=== PATIENT | female | born 1940 | race Caucasian/White ===

== ENCOUNTER 2016-04-29 10:17 | Outpatient (RCR) | payer MEDICARE ==
[~2016-04-29 10:17] MED LIST: ACET500C4 PO; ASCO500T20 PO; ASP325TEC PO; ASP81TEC PO; ASPI-892; ATEN25TA; ATEN25TA PO; ATOR40TA PO; CA/D1TAB3 PO; CALC-80 PO; CITA10TA PO; CITA20TA4 PO; DNPZ10T PO; DONE5TAB30 PO; FISH OIL 1,2001 EAC1 PO; GLUC-96 PO; HYDR1TAB PO; LOSA1TAB23 PO; MULT-608 PO; NFD60TCR PO; NIA500ERT; NIAC1000 PO; NIFE60TA74; OLME1TAB22; OMEG-9 PO; OMEG1200 PO; OMEG1CAP51; OMEG1CAP74 PO; OMEP-10; OMEP40CA36 PO; POTA99TA15 PO; POTA99TA4 PO; POTASSIUM 99 MG PO; SIMV40TA2
--- OUTSIDE RECORDS SUMMARY | 2016-04-29 10:20 | XMS REPORT | Continuity of Care Document ---
Author Author [facility] Organization [facility] Address Unknown Phone Unavailable Care Team Providers Care Marine Mechanic Name Role Phone CLIVE NEVAREZ MD PCP Insurance Providers Payer Name Policy Number Subscriber Name Relationship Wps [employer] [id number] Paola Amaral 18 Self / Same As Patient [facility] [id number] Paola Amaral 18 Self / Same As Patient Advance Directives Directive Response Recorded Date/Time Advance Directives No 01/16/14 6:48am Health Care Power of Morning Babysitter No 01/16/14 6:48am Organ Donor No 01/16/14 6:48am Problems No problem information available. Medications Current Home Medications Medication Dose Units Route Directions Days/Qty Instructions Start Date Omeprazole 40 Mg 40 Mg Oral Daily 08/26/11 Losartan/Hydrochlorothiazide 1 Each 1 Tab Oral Daily 100-25 mg tablet 08/26/11 Atenolol 25 Mg 25 Mg Oral Daily 08/26/11 Atorvastatin Calcium 40 Mg 40 Mg Oral Bedtime 08/26/11 Multivitamins 1 Tab 1 Tab Oral Daily 08/26/11 Calcium Carbonate/Vitamin D3 1 Each 600 Mg Oral Daily 08/26/11 Ascorbic Acid 500 Mg 500 Mg Oral Daily 08/26/11 Nifedipine 60 Mg 60 Mg Oral Daily 09/22/12 Aspirin 325 Mg 325 Mg Oral Bedtime 09/22/12 Donepezil Hcl 10 Mg 10 Mg Oral Bedtime 01/12/14 Ca/D3/Mag#11/Zinc/Spike Machine Heater/Bill/Bor 1 Each 2 Tab Oral Daily 01/12/14 Glucosa Gary 2KCL/Chondroitin Gary 1 Each 2 Tab Oral Daily 01/12/14 [place]-3/Dha/Epa/Fish Oil 1,200 Mg 2,400 Mg Oral Twice A Day TAKES 2 ( 1200MG) CAPSULE 01/16/14 Potassium Gluconate 99 Mg 198 Mg Oral Twice A Day TAKES 2 (99MG) TABLETS 01/16/14 Citalopram Hydrobromide 20 Mg 20 Mg Oral Daily 01/16/14 Acetaminophen 500 Mg 500 Mg Oral Every 8HRS as needed for Pain 01/16 Past Home Medications Medication Directions Ordered Status Olmesartn/Hydrochlorothiazide 1 Tab Tablet, 07/18/09 Discontinued Simvastatin 40 Mg Tablet, 07/18/09 Discontinued Atenolol 25 Mg Tablet, 07/18/09 Discontinued Omeprazole 20 Mg Capsule., 07/18/09 Discontinued Nifedipine 60 Mg Tablet., 07/18/09 Discontinued Aspirin 81 Mg Tablet., 07/18/09 Discontinued [place]-3 Fatty Acids/Fish Oil 1 Each Capsule, 07/18/09 Discontinued Niacin 500 Mg Tablet., 07/18/09 Discontinued Citalopram Hydrobromide 10 Mg Tablet, 10 Mg Oral Daily 08/26/11 Discontinued Nifedipine 60 Mg Tab, 1 Each Oral Daily 08/26/11 Discontinued Aspirin 81 Mg Tabec, 81 Mg Oral Daily 08/26/11 Discontinued Niacin 1,000 Mg Tablet., 1000 Mg Oral Daily 08/26/11 Discontinued [place]-3/Dha/Epa/Fish Oil 1,000 Mg Capsule, 2000 Mg Oral Noon And Hs 08/26/11 Discontinued [place]-3/Dha/Epa/Fish Oil 1 Each Capsule., 1400 Mg Oral Twice A Day Discontinued Potassium Gluconate 99 Mg Tablet, 198 Mg Oral Daily 08/26/11 Discontinued Acetaminophen/Hydrocodone Bitart 1 Each Tablet, 1 - 2 Each Oral Q4-6HRS as needed 09/03/11 Discontinued [place]-3 Fatty Acids/Fish Oil 1 Each Capsule, 1200 Mg Oral Three Times A Day 09/22/12 Discontinued Donepezil Hcl 5 Mg Tablet, 5 Mg Oral Daily 09/22/12 Discontinued [place]-3/Dha/Epa/Fish Oil 1 Each Capsule., 1 Each Oral Three Times A Day 08/22 Discontinued [Braden Potassium 99MG] , 198 Mg Oral Twice A Day 01/12/14 Discontinued Social History Social History Problem Response Recorded Date/Time Alcohol Use Regular Use 01/16/2014 6:48am Recreational Drug Use Y SMOKES APPROX 2-4 CIGARETTES PER DAY; 01/16/2014 6: 48am Recent Foreign Travel No 01/16/2014 6:48am Recent Infectious Disease Exposure No 01/16/2014 6:48am Hospitalization with Isolation Denies 01/17/2014 4:06pm Sexually Transmitted Disease No 01/16/2014 6:48am Hospital Discharge Instructions No hospital discharge instructions. Plan of Care Prescriptions See Medication Section Functional Status No functional status results. Allergies, Adverse Reactions, Alerts No known allergies. Immunizations Name Given Type Date of Pneumonia Vaccine 10/14/12 Historical Hepatitis A No Historical Hepatitis B No Historical Tetanus Booster (TDap) More than 5yrs Historical Vital Signs No known vital signs results. Results No known relevant diagnostic tests, laboratory data and/or discharge summary. Procedures No known history of procedures. Encounters Encounter Location Arrival/Admit Date Discharge/Depart Date Attending Provider Discharged Recurring [facility] 10/09/15 10:00am 11:59pm MINNIE SELF DO
[2016-04-29 10:32] LABS: BASOPHILS # (AUTO) 0.1 10^3/uL (0.0-0.1); BASOPHILS % (AUTO) 0 % (0-10); EOSINOPHILS # (AUTO) 0.4 10^3/uL (0.0-0.3); EOSINOPHILS % (AUTO) 2 % (0-10); LYMPHOCYTES # (AUTO) 5.2 X 10^3 (1.0-4.0); LYMPHOCYTES % (AUTO) 30 % (12-44); MEAN CORPUSCULAR HEMOGLOBIN 28 PG (25-34); MEAN CORPUSCULAR HGB CONC 33 G/DL (32-36); MEAN CORPUSCULAR VOLUME 87 FL (80-99); MEAN PLATELET VOLUME 9.7 FL (7.4-10.4); MONOCYTES # (AUTO) 1.7 X 10^3 (0.0-1.0); MONOCYTES % (AUTO) 10 % (0-12); NEUTROPHILS # (AUTO) 10.2 X 10^3 (1.8-7.8); NEUTROPHILS % (AUTO) 58 % (42-75); PLATELET COUNT 332 10^3/uL (130-400); RED BLOOD COUNT 4.53 10^6/uL (4.35-5.85); RED CELL DISTRIBUTION WIDTH 14.2 % (10.0-14.5); WHITE BLOOD COUNT 17.6 10^3/uL (4.3-11.0)
[2016-04-29 11:30] LABS: ALBUMIN 4.4 G/DL (3.2-4.5); BILIRUBIN,TOTAL 1.1 MG/DL (0.1-1.0); CALCIUM 9.3 MG/DL (8.5-10.1); CREATININE SERUM 1.23 MG/DL (0.60-1.30); MAGNESIUM 1.7 MG/DL (1.8-2.4); POTASSIUM 4.2 MMOL/L (3.6-5.0); TOTAL PROTEIN 7.2 G/DL (6.4-8.2)
[2016-05-03] MEDS ORDERED: OMG1KC PO ×2 (17:36)
[2016-05-03] MEDS ORDERED: MAGN400T6 PO (17:36)
[2016-05-03] MEDS ORDERED: CALC-6 PO (17:36)
[2016-05-03] MEDS ORDERED: OXYC-197 PO (17:36)
[2016-05-03] MEDS ORDERED: AMLO10TA4 PO (17:36)
[2016-05-05] MEDS ORDERED: RT-ALBUTEROL/IPRATROPIUM 3 ML (DUONEB) VIAL ONE (07:27)
[2016-05-05] MEDS ORDERED: RT-BUDESONIDE NEBS 0.5 MG/2ML (PULMICORT) AMP ONE (07:32)
[2016-05-06] MEDS ORDERED: CEFD300C3 PO (12:14)
== END 2016-07-28 | disposition home or self-care (01) ==
LOC: ONC 10:17
PROVIDERS: ATTEND Internal Medicine Hematology & Oncology
DX: C91.10 Chronic lymphocytic leukemia of B-cell type not having achieved remission (principal); Z85.3 Personal history of malignant neoplasm of breast; Z79.899 Other long term (current) drug therapy
CPT/HCPCS: 36415; 80053; 83615; 83735; 85025; 99213

== ENCOUNTER → 2016-05-26 | Outpatient (CLI) | payer MEDICARE ==
[~2016-05-26] MED LIST changes: +AMLO10TA4 PO; +CALC-6 PO; +CEFD300C3 PO; +MAGN400T6 PO; +OMG1KC PO; +OXYC-197 PO
--- OUTSIDE RECORDS SUMMARY | 2016-05-26 11:06 | XMS REPORT | Continuity of Care Document ---
Author Author [facility] Organization [facility] Address Unknown Phone Unavailable Care Team Providers Care Retail Representative Name Role Phone CLIVE NEVAREZ MD PCP Insurance Providers Payer Name Policy Number Subscriber Name Relationship Wps Medicare [id number] Paola Amaral 18 Self / Same As Patient [facility] [id number] Paola Amaral 18 Self / Same As Patient Advance Directives Directive Response Recorded Date/Time Advance Directives No 01/16/14 6:48am Health Care Power of Cdl Instructor No 01/16/14 6:48am Organ Donor No 01/16/14 [...] 10 Mg 10 Mg Oral Bedtime 01/12/14 Ca/D3/Mag#11/Zinc/Photonics Engineer/Bill/Bor 1 Each 2 Tab Oral Daily 01/12/14 Glucosa Gary 2KCL/Chondroitin Gary 1 Each 2 Tab Oral Daily 01/12/14 [place]-3/Dha/Epa/Fish Oil 1,200 Mg 2,400 Mg Oral Twice [...] Discontinued Aspirin 81 Mg Tablet., 07/18/09 Discontinued [place]-3 Fatty Acids/Fish Oil 1 Each Capsule, 07/18/09 Discontinued Niacin 500 Mg Tablet., 07/18/09 Discontinued Citalopram Hydrobromide 10 Mg Tablet, 10 Mg Oral Daily 08/26/11 Discontinued Nifedipine 60 Mg Tab, 1 Each Oral Daily 08/26/11 Discontinued Aspirin 81 Mg Tabec, 81 Mg Oral Daily 08/26/11 Discontinued Niacin 1,000 Mg Tablet., 1000 Mg Oral Daily 08/26/11 Discontinued [place]-3/Dha/Epa/Fish Oil 1,000 Mg Capsule, 2000 Mg Oral Noon And Hs 08/26/11 Discontinued [place]-3/Dha/Epa/Fish Oil 1 Each Capsule., 1400 Mg Oral Twice A Day Discontinued Potassium Gluconate 99 Mg Tablet, 198 Mg Oral Daily 08/26/11 Discontinued Acetaminophen/Hydrocodone Bitart 1 Each Tablet, 1 - 2 Each Oral Q4-6HRS as needed 09/03/11 Discontinued [place]-3 Fatty Acids/Fish Oil 1 Each Capsule, 1200 Mg Oral Three Times A Day 09/22/12 Discontinued Donepezil Hcl 5 Mg Tablet, 5 Mg Oral Daily 09/22/12 Discontinued [place]-3/Dha/Epa/Fish Oil 1 Each Capsule., 1 Each Oral [...] Discharge/Depart Date Attending Provider Discharged Recurring [facility] 10/09/15 10:00am 11:59pm MINNIE SELF DO
--- NOTE | 2016-05-26 18:45 | Diagnostic Imaging Report ---
Right breast screening mammogram. INDICATION: Screening. No current complaints. Patient has history of breast cancer status post left mastectomy. COMPARISON: 05/24/2015. The current study was also evaluated with a Computer Aided Detection (CAD) system. FINDINGS: The right breast is composed of heterogeneously dense parenchyma which may decrease mammographic sensitivity. There are occasional benign-appearing calcifications seen. Allowing for technique and positional differences, no suspicious change is seen. IMPRESSION: Dense breasts with no definite change. ACR BI-RADS Category 2: Benign findings. Result letter will be mailed to the patient. Note: At least 10% of breast cancer is not imaged by mammography. Dictated by: Dictated on workstation # [id number]
== END ==
LOC: RAD 11:03
PROVIDERS: ATTEND Nurse Practitioner Adult Health
DX: Z12.31 Encounter for screening mammogram for malignant neoplasm of breast (principal); C50.512 Malignant neoplasm of lower-outer quadrant of left female breast

== ENCOUNTER → 2016-08-12 | Outpatient (CLI) | payer MEDICARE ==
[~2016-08-12] MED LIST changes: +CATHETER FLUSH 10 ML SYR IV PRN; +IOHEXOL 350 MG/ML 100 ML (OMNIPAQUE 350) VIAL IV ONE; +NS 100 ML (IVPB) BAG IV ONE
--- NOTE | 2016-08-12 13:28 | Diagnostic Imaging Report ---
PROCEDURE: CT chest with contrast only. TECHNIQUE: Multiple contiguous axial images were obtained through the chest after administration of intravenous contrast. INDICATION: COPD, checking anterior veins prior to left mastectomy. FINDINGS: The previous CT chest exam of 04/29/2015 failed to show any sign of malignancy or of an acute abnormality. On this study, there are mild emphysematous changes involving both lungs. There are also mild fibrotic changes in each lower lobe. These findings are similar to the prior exam. There is no sign of failure, pneumonia, or pleural effusion to suggest an acute abnormality. There is no parenchymal mass identified either. The heart size is within normal limits and stable when compared to the prior study. There is no defect within the pulmonary arteries to indicate a pulmonary embolus. The aorta is not abnormally dilated, and there is no sign of a dissection. There is no mediastinal or hilar adenopathy. The thyroid gland, where visualized, is unremarkable. As noted on the prior exam, the left breast is surgically absent. There are a few lymph nodes in each axilla. These are similar in appearance to the prior study. The sections through the upper abdomen fail to show any sign of an acute abnormality. The bone windows are unremarkable for a fracture or for a destructive lesion. The patient's requisition did note "check anterior veins". There is no vascular abnormality identified. If there is clinical concern regarding a cutaneous vascular abnormality, then ultrasound would be recommended. IMPRESSION: 1. There is no acute cardiopulmonary abnormality identified. There is no parenchymal lung mass visualized either. 2. There are mild chronic pulmonary changes evident. 3. The left breast is surgically absent. 4. There is no vascular abnormality identified. Additional considerations as above. Dictated by: Dictated on workstation # [id number]
== END ==
LOC: RAD 09:10
PROVIDERS: ATTEND Thoracic Surgery (Cardiothoracic Vascular Surgery)
DX: K57.90 Diverticulosis of intestine, part unspecified, without perforation or abscess without bleeding (principal); J44.9 Chronic obstructive pulmonary disease, unspecified
CPT/HCPCS: 71260

== ENCOUNTER → 2016-08-26 | Outpatient (CLI) | payer MEDICARE ==
[~2016-08-26] MED LIST changes: -CATHETER FLUSH 10 ML SYR IV PRN; -IOHEXOL 350 MG/ML 100 ML (OMNIPAQUE 350) VIAL IV ONE; -NS 100 ML (IVPB) BAG IV ONE
[2016-08-26 09:22] LABS: BASOPHILS # (AUTO) 0.1 10^3/uL (0.0-0.1); BASOPHILS % (AUTO) 1 % (0-10); EOSINOPHILS # (AUTO) 0.2 10^3/uL (0.0-0.3); EOSINOPHILS % (AUTO) 2 % (0-10); LYMPHOCYTES # (AUTO) 5.6 X 10^3 (1.0-4.0); LYMPHOCYTES % (AUTO) 49 % (12-44); MEAN CORPUSCULAR HEMOGLOBIN 29 PG (25-34); MEAN CORPUSCULAR HGB CONC 33 G/DL (32-36); MEAN CORPUSCULAR VOLUME 87 FL (80-99); MEAN PLATELET VOLUME 9.7 FL (7.4-10.4); MONOCYTES # (AUTO) 1.3 X 10^3 (0.0-1.0); MONOCYTES % (AUTO) 12 % (0-12); NEUTROPHILS # (AUTO) 4.2 X 10^3 (1.8-7.8); NEUTROPHILS % (AUTO) 37 % (42-75); PLATELET COUNT 303 10^3/uL (130-400); RED BLOOD COUNT 4.41 10^6/uL (4.35-5.85); RED CELL DISTRIBUTION WIDTH 14.1 % (10.0-14.5); RETICULOCYTE % 1.47 % (0.50-2.40); WHITE BLOOD COUNT 11.5 10^3/uL (4.3-11.0)
[2016-08-26 09:26] LABS: PATH WILL NEED TO REVIEW SMEAR PATH TO REVIEW
[2016-08-26 09:48] LABS: BAND NEUTROPHILS 0 %; BASOPHILS % (MANUAL) 2 %; EOSINOPHILS % (MANUAL) 4 %; LYMPHOCYTES % (MANUAL) 42 %; NEUTROPHILS % (MANUAL) 46 %
== END ==
LOC: LAB 08:50
PROVIDERS: ATTEND Internal Medicine
DX: C91.10 Chronic lymphocytic leukemia of B-cell type not having achieved remission (principal); D72.9 Disorder of white blood cells, unspecified
CPT/HCPCS: 36415; 85007; 85027; 85045

== ENCOUNTER 2016-10-27 12:44 | Outpatient (RCR) | payer MEDICARE ==
[2016-10-27 13:21] LABS: BASOPHILS # (AUTO) 0.1 10^3/uL (0.0-0.1); BASOPHILS % (AUTO) 1 % (0-10); EOSINOPHILS # (AUTO) 0.3 10^3/uL (0.0-0.3); EOSINOPHILS % (AUTO) 3 % (0-10); LYMPHOCYTES # (AUTO) 6.3 X 10^3 (1.0-4.0); LYMPHOCYTES % (AUTO) 52 % (12-44); MEAN CORPUSCULAR HEMOGLOBIN 29 PG (25-34); MEAN CORPUSCULAR HGB CONC 32 G/DL (32-36); MEAN CORPUSCULAR VOLUME 90 FL (80-99); MONOCYTES # (AUTO) 1.4 X 10^3 (0.0-1.0); MONOCYTES % (AUTO) 11 % (0-12); NEUTROPHILS # (AUTO) 4.2 X 10^3 (1.8-7.8); NEUTROPHILS % (AUTO) 34 % (42-75); PLATELET COUNT 293 10^3/uL (130-400); WHITE BLOOD COUNT 12.2 10^3/uL (4.3-11.0)
[2016-10-27 13:41] LABS: ALBUMIN 4.1 GM/DL (3.2-4.5); BILIRUBIN,TOTAL 0.9 MG/DL (0.1-1.0); CALCIUM 9.1 MG/DL (8.5-10.1); CREATININE SERUM 1.03 MG/DL (0.60-1.30); ICTERUS 0.6 (-100-1.9); MAGNESIUM 1.8 MG/DL (1.8-2.4); POTASSIUM 4.4 MMOL/L (3.6-5.0)
== END 2017-01-25 | disposition home or self-care (01) ==
LOC: ONC 12:44
PROVIDERS: ATTEND Internal Medicine Hematology & Oncology
DX: C91.10 Chronic lymphocytic leukemia of B-cell type not having achieved remission (principal); Z85.3 Personal history of malignant neoplasm of breast; F03.90 Unspecified dementia, unspecified severity, without behavioral disturbance, psychotic disturbance, mood disturbance, and anxiety; F41.9 Anxiety disorder, unspecified; I25.10 Atherosclerotic heart disease of native coronary artery without angina pectoris; J44.9 Chronic obstructive pulmonary disease, unspecified; I12.9 Hypertensive chronic kidney disease with stage 1 through stage 4 chronic kidney disease, or unspecified chronic kidney disease; N18.3 Chronic kidney disease, stage 3 (moderate); E78.00 Pure hypercholesterolemia, unspecified; E83.42 Hypomagnesemia; G25.81 Restless legs syndrome; Z90.12 Acquired absence of left breast and nipple; Z87.891 Personal history of nicotine dependence; Z79.899 Other long term (current) drug therapy; Z92.21 Personal history of antineoplastic chemotherapy
CPT/HCPCS: 36415; 80053; 83615; 83735; 85025; 99213

== ENCOUNTER → 2017-04-06 | Outpatient (CLI) | payer MEDICARE ==
--- NOTE | 2017-04-06 21:59 | Diagnostic Imaging Report ---
INDICATION: Bilateral thumb pain. FINDINGS: Three views of the right hand and three views of the left hand are obtained. There is no fracture or dislocation seen in either hand. Joint spaces are well maintained. There is no periarticular osteopenia or marginal erosion seen. IMPRESSION: Negative bilateral hands. Dictated by: Dictated on workstation # [id number]
== END ==
LOC: RAD 12:29
PROVIDERS: ATTEND Internal Medicine
DX: M79.645 Pain in left finger(s) (principal); M79.644 Pain in right finger(s)

== ENCOUNTER 2017-04-28 12:52 | Outpatient (RCR) | payer MEDICARE ==
[2017-04-28 13:22] LABS: HEMATOCRIT 41 % (35-52); HEMOGLOBIN 13.3 G/DL (11.5-16.0); MEAN CORPUSCULAR HEMOGLOBIN 29 PG (25-34); MEAN CORPUSCULAR HGB CONC 33 G/DL (32-36); MEAN CORPUSCULAR VOLUME 89 FL (80-99); MEAN PLATELET VOLUME 9.7 FL (7.4-10.4); PLATELET COUNT 347 10^3/uL (130-400); RED BLOOD COUNT 4.56 10^6/uL (4.35-5.85); RED CELL DISTRIBUTION WIDTH 13.9 % (10.0-14.5); WHITE BLOOD COUNT 18.8 10^3/uL (4.3-11.0)
[2017-04-28 13:34] LABS: ALBUMIN 4.1 GM/DL (3.2-4.5); BILIRUBIN,TOTAL 0.7 MG/DL (0.1-1.0); CALCIUM 9.7 MG/DL (8.5-10.1); CREATININE SERUM 0.99 MG/DL (0.60-1.30); POTASSIUM 4.7 MMOL/L (3.6-5.0); TOTAL PROTEIN 7.5 GM/DL (6.4-8.2)
[2017-04-28 16:45] LABS: MAGNESIUM 1.6 MG/DL (1.8-2.4)
== END 2017-07-27 | disposition home or self-care (01) ==
LOC: ONC 12:52
PROVIDERS: ATTEND Internal Medicine Hematology & Oncology
DX: C91.10 Chronic lymphocytic leukemia of B-cell type not having achieved remission (principal); Z85.3 Personal history of malignant neoplasm of breast; F03.90 Unspecified dementia, unspecified severity, without behavioral disturbance, psychotic disturbance, mood disturbance, and anxiety; F41.9 Anxiety disorder, unspecified; I25.10 Atherosclerotic heart disease of native coronary artery without angina pectoris; J44.9 Chronic obstructive pulmonary disease, unspecified; I12.9 Hypertensive chronic kidney disease with stage 1 through stage 4 chronic kidney disease, or unspecified chronic kidney disease; N18.3 Chronic kidney disease, stage 3 (moderate); E78.00 Pure hypercholesterolemia, unspecified; E83.42 Hypomagnesemia; G25.81 Restless legs syndrome; Z90.12 Acquired absence of left breast and nipple; Z87.891 Personal history of nicotine dependence; Z79.899 Other long term (current) drug therapy; Z92.21 Personal history of antineoplastic chemotherapy
CPT/HCPCS: 36415; 80053; 83615; 83735; 85025; 99213

== ENCOUNTER → 2017-04-28 | Outpatient (CLI) | payer MEDICARE ==
[2017-04-28 13:50] LABS: POTASSIUM 4.7 MMOL/L (3.6-5.0)
[2017-04-28 13:51] LABS: BILIRUBIN,TOTAL 0.7 MG/DL (0.1-1.0); CALCIUM 9.7 MG/DL (8.5-10.1); CREATININE SERUM 0.99 MG/DL (0.60-1.30)
[2017-04-28 13:52] LABS: ALBUMIN 4.1 GM/DL (3.2-4.5); TOTAL PROTEIN 7.5 GM/DL (6.4-8.2)
== END ==
LOC: LAB 13:23
PROVIDERS: ATTEND Physician Assistant
DX: I25.10 Atherosclerotic heart disease of native coronary artery without angina pectoris (principal); I65.23 Occlusion and stenosis of bilateral carotid arteries; E78.2 Mixed hyperlipidemia; I10 Essential (primary) hypertension
CPT/HCPCS: 36415; 80053; 80061

== ENCOUNTER → 2017-05-27 | Outpatient (CLI) | payer MEDICARE ==
--- NOTE | 2017-05-27 19:26 | Diagnostic Imaging Report ---
Right screening mammogram. INDICATION: Left mastectomy for carcinoma. The study was compared to prior exams from 05/26/2016 to 03/17/2013. At this time, there are no current complaints. The current study was also evaluated with a Computer Aided Detection (CAD) system. FINDINGS: The fibroglandular tissue in the right breast is heterogeneously dense. This does limit the sensitivity of this exam. When compared to the previous study, there does not appear to have been any significant change. As noted on the prior exams, there are numerous calcifications in the right breast. These calcifications seem stable. There is no primary or secondary sign of malignancy noted. IMPRESSION: There is no evidence for malignancy. ACR BI-RADS Category 1: Negative. Result letter will be mailed to the patient. Note: At least 10% of breast cancer is not imaged by mammography. Dictated by: Dictated on workstation # [id number]
== END ==
LOC: RAD 14:46
PROVIDERS: ATTEND Nurse Practitioner Adult Health
DX: Z12.31 Encounter for screening mammogram for malignant neoplasm of breast (principal); Z90.12 Acquired absence of left breast and nipple; Z85.3 Personal history of malignant neoplasm of breast

== ENCOUNTER → 2017-08-20 | Outpatient (CLI) | payer MEDICARE ==
--- NOTE | 2017-08-20 15:56 | Diagnostic Imaging Report ---
INDICATION: Lower respiratory infection EXAM: PA and lateral chest FINDINGS: Heart size and pulmonary vascularity are normal. The lungs are clear. There are no effusions or pneumothoraces. IMPRESSION: Negative chest. Dictated by: Dictated on workstation # [id number]
== END ==
LOC: RAD 15:41
PROVIDERS: ATTEND Internal Medicine
DX: J22 Unspecified acute lower respiratory infection (principal)
CPT/HCPCS: 71046

== ENCOUNTER 2017-10-29 13:29 | Outpatient (RCR) | payer MEDICARE ==
[~2017-10-29 13:29] MED LIST changes: -OXYC-197 PO; +OXYC1TAB87 PO
[2017-10-29 13:57] LABS: HEMATOCRIT 39 % (35-52); HEMOGLOBIN 12.8 G/DL (11.5-16.0); MEAN CORPUSCULAR HEMOGLOBIN 29 PG (25-34); MEAN CORPUSCULAR HGB CONC 33 G/DL (32-36); MEAN CORPUSCULAR VOLUME 87 FL (80-99); MEAN PLATELET VOLUME 9.9 FL (7.4-10.4); PLATELET COUNT 327 10^3/uL (130-400); RED BLOOD COUNT 4.45 10^6/uL (4.35-5.85); RED CELL DISTRIBUTION WIDTH 15.3 % (10.0-14.5); WHITE BLOOD COUNT 27.6 10^3/uL (4.3-11.0)
[2017-10-29 14:09] LABS: ALBUMIN 4.1 GM/DL (3.2-4.5); BILIRUBIN,TOTAL 0.9 MG/DL (0.1-1.0); CALCIUM 9.2 MG/DL (8.5-10.1); CREATININE SERUM 1.01 MG/DL (0.60-1.30); POTASSIUM 4.5 MMOL/L (3.6-5.0); TOTAL PROTEIN 8.1 GM/DL (6.4-8.2)
[2017-10-29 17:32] LABS: BAND NEUTROPHILS 0 %; BASOPHILS % (MANUAL) 0 %; EOSINOPHILS % (MANUAL) 1 %; LYMPHOCYTES % (MANUAL) 31 %; MONOCYTES % (MANUAL) 2 %; NEUTROPHILS % (MANUAL) 15 %; PROLYMPHOCYTE % 5 %; SMUDGE CELLS SLIGHT
[2017-10-29 17:34] LABS: ATYPICAL LYMPHOCYTES 46 %
[2017-10-29 17:35] LABS: RBC MORPH NORMAL
== END 2018-01-27 | disposition home or self-care (01) ==
LOC: ONC 13:29
PROVIDERS: ATTEND Internal Medicine Hematology & Oncology
DX: C91.10 Chronic lymphocytic leukemia of B-cell type not having achieved remission (principal); Z85.3 Personal history of malignant neoplasm of breast; F03.90 Unspecified dementia, unspecified severity, without behavioral disturbance, psychotic disturbance, mood disturbance, and anxiety; F41.9 Anxiety disorder, unspecified; I25.10 Atherosclerotic heart disease of native coronary artery without angina pectoris; J44.9 Chronic obstructive pulmonary disease, unspecified; I12.9 Hypertensive chronic kidney disease with stage 1 through stage 4 chronic kidney disease, or unspecified chronic kidney disease; N18.3 Chronic kidney disease, stage 3 (moderate); E78.00 Pure hypercholesterolemia, unspecified; E83.42 Hypomagnesemia; G25.81 Restless legs syndrome; Z90.12 Acquired absence of left breast and nipple; Z87.891 Personal history of nicotine dependence; Z79.899 Other long term (current) drug therapy; Z92.21 Personal history of antineoplastic chemotherapy
CPT/HCPCS: 80053; 83615; 85007; 85025; 99213

== ENCOUNTER → 2018-02-03 | Outpatient (CLI) | payer MEDICARE ==
[~2018-02-03] VITALS: Ht 160 cm; Wt 89.4 kg
[~2018-02-03] MED LIST changes: +ASCO10006 PO; +ASPI-983 PO; +CETI-343 PO; +COLE1TAB PO; +GUAI400T44 PO; +LOPE2TAB34 PO; +MAGN250T13 PO; +OMEG1CAP24 PO; +REGADENOSON 0.4 MG/5 ML SYR (LEXISCAN) IV ONE; +TICA90TA PO
[2018-02-03] MEDS: CATHETER FLUSH 10 ML SYR IV PRN ×2 (12:03→13:15)
[2018-02-03 13:14] VITALS: BP 159/80
--- NOTE | 2018-02-03 23:24 | STRESS TEST ---
DATE OF SERVICE: 02/03/2018 LEXISCAN MYOVIEW STRESS TEST REPORT REFERRING PHYSICIAN: Dr. Carmona. Baseline heart rate is 65, baseline blood pressure 134/71. Baseline EKG is sinus rhythm with left bundle branch block. SUMMARY: The patient was injected with 10.44 mCi of technetium-99 Myoview and the resting images were obtained. Then, the patient received 0.4 mg of Lexiscan followed by 30.8 mCi of technetium-99 Myoview. Throughout the test, there were no EKG changes. The resting and stress images were reviewed and compared in the short axis, horizontal long axis, and vertical long axis views. Review of the images showed breast attenuation with reversible ischemia involving the mid to apical inferior wall and inferolateral wall. SSS is 8, SDS 5, TID value 1.17. On the gated images, the left ventricle appeared to be in normal size with normal contractility. Calculated ejection fraction 75%. CONCLUSION: 1. The patient tolerated Lexiscan well. 2. Breast attenuation with reversible ischemia involving the mid to apical inferior wall and inferolateral wall. 3. Normal left ventricular size with normal contractility. Calculated ejection fraction 75%. Job ID: [id number] DocumentID: [id number] Dictated Date: 02/03/2018 19:08:33 Delivery Manager Date: 02/03/2018 22:27:17 Dictated By: LLUVIA GARDUNO MD
== END ==
LOC: CARD 11:49
PROVIDERS: ATTEND Physician Assistant
DX: I25.10 Atherosclerotic heart disease of native coronary artery without angina pectoris (principal); N18.3 Chronic kidney disease, stage 3 (moderate); R06.00 Dyspnea, unspecified; E78.5 Hyperlipidemia, unspecified; I44.7 Left bundle-branch block, unspecified
CPT/HCPCS: 78452; 93017

== ENCOUNTER 2018-02-10 07:05 | Day surgery (SDC) | payer MEDICARE ==
[2018-02-10] VITALS (18 sets, daily range): BP systolic 120–158; BP diastolic 47–83
[~2018-02-10] VITALS: Ht 160 cm; Wt 89.4 kg
[~2018-02-10 07:05] MED LIST changes: -ASCO10006 PO; -ASPI-983 PO; -CETI-343 PO; -COLE1TAB PO; -GUAI400T44 PO; -LOPE2TAB34 PO; -MAGN250T13 PO; -OMEG1CAP24 PO; -REGADENOSON 0.4 MG/5 ML SYR (LEXISCAN) IV ONE; -TICA90TA PO
--- OUTSIDE RECORDS SUMMARY | 2018-02-10 07:11 | XMS REPORT | Continuity of Care Document ---
Author Author [facility] Organization [facility] Address Unknown Phone Unavailable Allergies Active Description Code Type Severity Reaction Onset Reported/Identified Relationship to Patient Clinical Status Yes No Known Drug Allergies [id number] Drug Allergy Unknown N/A 05/03/2016 Medications There is no data. Problems Date Dx Coded Attending Type Code Diagnosis Diagnosed By 09/03/2011 Ot 706.2 SEBACEOUS CYST 09/25/2012 TAVO VALLE MD Ot 272.4 HYPERLIPIDEMIA NEC/NOS 09/25/2012 TAVO VALLE MD Ot 305.1 TOBACCO USE DISORDER 09/25/2012 TAVO VALLE MD Ot 311 DEPRESSIVE DISORDER NEC 09/25/2012 TAVO VALLE MD Ot 401.9 HYPERTENSION NOS 09/25/2012 TAVO VALLE MD Ot 414.00 CORON ATHEROSCLER NOS TYPE VESSEL, NATIV 09/25/2012 TAVO VALLE MD Ot 426.3 LEFT BB BLOCK NEC 09/25/2012 TAVO VALLE MD Ot 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 O CEREBRAL IN 09/25/2012 TAVO VALLE MD Ot 530.81 ESOPHAGEAL REFLUX 09/25/2012 TAVO VALLE MD Ot 562.10 DIVERTICULOSIS COLON (W/O MENT OF HEMORR 09/25/2012 TAVO VALLE MD Ot 715.90 OSTEOARTHROS NOS-UNSPEC 09/25/2012 TAVO VALLE MD Ot V03.82 PROPHYLACTIC VACC AGAINST STREPTOCOCCUS 09/25/2012 TAVO VALLE MD Ot V10.3 HX OF BREAST MALIGNANCY 09/25/2012 TAVO VALLE MD Ot V12.72 PERSONAL HISTORY OF COLONIC POLYPS 09/25/2012 TAVO VALLE MD Ot V17.1 FAMILY HX-STROKE 09/25/2012 TAVO VALLE MD Ot V17.49 FAMILY HISTORY OF OTHER CARDIOVASCULAR D 06/16/2013 TAVO VALLE MD Ot 530.11 REFLUX ESOPHAGITIS 06/16/2013 TORI VICK, TAVO Alexander Ot 562.10 DIVERTICULOSIS COLON (W/O MENT OF HEMORR 06/16/2013 TORI VICK, TAVO Alexander Ot V12.72 PERSONAL HISTORY OF COLONIC POLYPS 06/23/2013 YSOI BRINK Ot 174.9 MALIGN NEOPL BREAST NOS 06/23/2013 YOSI BRINK Ot 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, 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 06/23/2013 YOSI BRINK Ot 585.3 CHRONIC KIDNEY DISEASE, STAGE III (MODER 10/20/2013 YOSI BRINK Ot 174.9 MALIGN NEOPL BREAST NOS 10/20/2013 YOSI BRINK Ot 457.1 OTHER LYMPHEDEMA 10/20/2013 YOSI BRINK Ot V57.21 ENCOUNTER FOR OCCUPATIONAL THERAPY 01/17/2014 TAVO VALLE MD Ot 272.4 HYPERLIPIDEMIA NEC/NOS 01/17/2014 TAVO VALLE MD Ot 401.9 HYPERTENSION NOS 01/17/2014 TORI VICK, TAVO Alexander Ot 414.00 CORON ATHEROSCLER NOS TYPE VESSEL, NATIV 01/17/2014 TORI VICK, TAVO Alexander Ot 447.8 ARTERIAL DISEASE NEC 01/17/2014 TORI VICK, TAVO Alexander Ot 530.81 ESOPHAGEAL REFLUX 01/17/2014 TORI VICK, TAVO Alexander Ot V10.3 HX OF BREAST MALIGNANCY 01/17/2014 TAVO VALLE MD Ot V12.72 PERSONAL HISTORY OF COLONIC POLYPS 01/17/2014 TAVO VALLE MD Ot V12.79 PERSONAL HISTORY OTH SPEC DIGESTIVE SYST 03/27/2014 JIM SHER ASSISTANT THERAPY AIDE Ot 174.9 03/27/2014 JMI SHER ASSISTANT THERAPY AIDE Ot V76.12 03/29/2014 JIM SHER ASSISTANT THERAPY AIDE Ot 174.9 03/29/2014 JIM SHER ASSISTANT THERAPY AIDE Ot V76.12 04/18/2014 JIM SHER ASSISTANT THERAPY AIDE Ot 174.9 04/18/2014 JIM SHER ASSISTANT THERAPY AIDE Ot V76.12 04/24/2014 TAVO VALLE MD Ot 433.10 04/24/2014 TAVO VALLE MD Ot V72.63 04/24/2014 TAVO VALLE MD Ot V72.81 04/24/2014 TORI VICK, TAVO S Ot V72.83 04/24/2014 TORI VICK, TAVO S Ot V74.8 08/03/2014 KEENAYOSI N Ot 174.9 08/03/2014 KEENA, YOSI N Ot 204.10 08/03/2014 KEENA, YOSI N Ot 585.3 09/06/2014 Ot 786.05 10/20/2014 KEENA, YOSI N Ot 204.10 10/20/2014 KEENA, YOSI N Ot 457.1 10/20/2014 KEENA, YOSI N Ot 682.3 10/20/2014 KEENA, YOSI N Ot V10.3 10/20/2014 KEENA, YOSI N Ot V45.71 10/20/2014 KEENA, YOSI N Ot V58.69 10/20/2014 KEENA, YOSI N Ot V87.41 10/31/2014 KEENA, YOSI N Ot 204.10 10/31/2014 KEENA, YOSI N Ot 457.1 10/31/2014 KEENA, YOSI N Ot 682.3 10/31/2014 KEENA, YOSI N Ot V10.3 10/31/2014 KEENA, YOSI N Ot V45.71 10/31/2014 KEENA, YOSI N Ot V58.69 10/31/2014 KEENA, YOSI N Ot V87.41 04/12/2015 LLUVIA GARDUNO MD Ot E78.2 04/12/2015 LAUREEN VICK, LLUVIA Martínez Ot I10 04/12/2015 LLUVIA GARDUNO MD Ot I25.10 04/12/2015 LLUVIA GARDUNO MD Ot I65.23 04/18/2015 LLUVIA GARDUNO MD Ot E78.2 04/18/2015 LLUVIA GARDUNO MD Ot I10 04/18/2015 LLUVIA GARDUNO MD Ot I25.10 04/18/2015 LLUVIA GARDUNO MD Ot I65.23 04/26/2015 LLUVIA GARDUNO MD Ot E78.2 04/26/2015 LLUVIA GARDUNO MD Ot I10 04/26/2015 LLUVIA GARDUNO MD Ot I25.10 04/26/2015 LLUVIA GARDUNO MD Ot I65.23 04/30/2015 LAUREEN VICK, LLUVIA Martínez Ot E78.2 04/30/2015 LAUREEN VICK, LLUVIA Martínez Ot I10 04/30/2015 LAUREEN VICK, LLUVIA Martínez Ot I25.10 04/30/2015 LAUREEN VICK, LLUVIA Martínez Ot I65.23 05/10/2015 CLAIR DO, MINNIE M Ot E66.9 05/10/2015 CLAIR DO, MINNIE M Ot I10 05/10/2015 CLAIR DO, MINNIE M Ot I25.10 05/10/2015 CLAIR DO, MINNIE M Ot I44.7 05/10/2015 CLAIR DO, MINNIE M Ot R41.3 05/17/2015 CLAIR DO, MINNIE M Ot E66.9 05/17/2015 CLAIR DO, MINNIE M Ot I10 05/17/2015 CLAIR DO, MINNIE M Ot I25.10 05/17/2015 CLAIR DO, MINNIE M Ot I44.7 05/17/2015 CLAIR KAUR, MINNIE M Ot R41.3 05/21/2015 CLAIR KAUR, MINNIE M Ot G47.33 OBSTRUCTIVE SLEEP APNEA (ADULT) (PEDIATR 05/22/2015 JIM SHER Ot C91.10 05/22/2015 JIM SHER Ot Z79.899 05/22/2015 JIM SHER Ot Z85.3 05/24/2015 CLAIR KAUR MINNIE M Ot E66.9 05/24/2015 CLAIR KAUR, MINNIE M Ot I10 05/24/2015 CLAIR DO, MINNIE M Ot I25.10 05/24/2015 CLAIR DO, MINNIE M Ot I44.7 05/24/2015 CLAIR DO, MINNIE M Ot R41.3 05/24/2015 CLAIR DO, MINNIE M Ot E66.9 05/24/2015 CLAIR DO, MINNIE M Ot I10 05/24/2015 CLAIR DO, MINNIE M Ot I25.10 05/24/2015 CLAIR DO, MINNIE M Ot I44.7 05/24/2015 CLAIR DO, MINNIE M Ot R41.3 06/07/2015 JIM SHERP Ot C91.10 06/07/2015 JIM SHERP Ot Z79.899 06/07/2015 JIM SHER ASSISTANT THERAPY AIDE Ot Z85.3 06/14/2015 JIM SHERP Ot C50.512 06/14/2015 JIM SHERP Ot Z12.31 08/31/2015 MINNIE SELF DO Ot G47.33 OBSTRUCTIVE SLEEP APNEA (ADULT) (PEDIATR 08/31/2015 MINNIE SELF DO Ot J44.9 CHRONIC OBSTRUCTIVE PULMONARY DISEASE, U 08/31/2015 MINNIE SELF DO Ot R06.00 DYSPNEA, UNSPECIFIED 09/09/2015 Ot 272.4 HYPERLIPIDEMIA NEC/NOS 09/09/2015 Ot V58.69 OT MED,LT, CURRENT USE 09/12/2015 MINNIE SELF DO Ot G47.33 OBSTRUCTIVE SLEEP APNEA (ADULT) (PEDIATR 09/12/2015 MINNIE SELF DO Ot J44.9 CHRONIC OBSTRUCTIVE PULMONARY DISEASE, U 09/12/2015 MINNIE SELF DO Ot R06.00 DYSPNEA, UNSPECIFIED 10/14/2015 MINNIE SELF DO Ot G47.33 OBSTRUCTIVE SLEEP APNEA (ADULT) (PEDIATR 10/14/2015 MINNIE SELF DO Ot J44.9 CHRONIC OBSTRUCTIVE PULMONARY DISEASE, U 10/14/2015 MINNIE SELF DO M Ot R06.00 DYSPNEA, UNSPECIFIED 10/16/2015 CLAIRMINNIE MARTÍNEZ DO Ot G47.33 OBSTRUCTIVE SLEEP APNEA (ADULT) (PEDIATR 10/16/2015 MINNIE SELF DO Ot J44.9 CHRONIC OBSTRUCTIVE PULMONARY DISEASE, U 10/16/2015 MINNIE SELF DO Ot R06.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 11/09/2015 TORI VICK, TAVO Alexander Ot 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 O CEREBRAL IN 11/09/2015 TORI VICK, TAVO Alexander Ot V72.63 PRE-PROCEDURAL LABORATORY EXAMINATION 11/09/2015 TAVO VALLE MD Ot V72.81 [id number] CARDIOVASCULAR 11/09/2015 TAVO VALLE MD Ot V72.83 EXAM PRE-OPERATIVE NEC 11/09/2015 TAVO VALLE MD S Ot V74.8 SCREEN-BACTERIAL DIS NEC 11/27/2015 YOSI BRINK Ot 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 12/06/2015 YOSI BRINK Ot 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 01/10/2016 Ot 793.89 OTH (ABN) FINDINGS ON RADIOLOGICAL EXAMI 01/10/2016 Ot V10.3 HX OF BREAST MALIGNANCY 01/10/2016 Ot V45.71 ACQUIRED ABSENCE OF BREAST AND NIPPLE 01/10/2016 Ot V76.11 SCRN MAMMO- HIGH RISK PT, MALIGNANT NEOPL 02/09/2016 Ot 793.89 OTH (ABN) FINDINGS ON RADIOLOGICAL EXAMI 02/09/2016 Ot V10.3 HX OF BREAST MALIGNANCY 02/09/2016 Ot V45.71 ACQUIRED ABSENCE OF BREAST AND NIPPLE 02/09/2016 Ot V76.11 SCRN MAMMO- HIGH RISK PT, MALIGNANT NEOPL 04/10/2016 Ot 288.61 LYMPHOCYTOSIS (SYMPTOMATIC) 04/10/2016 Ot V10.3 HX OF BREAST MALIGNANCY 04/10/2016 Ot 174.9 MALIGN NEOPL BREAST NOS 04/10/2016 Ot V76.11 SCRN MAMMO- HIGH RISK PT, MALIGNANT NEOPL 04/10/2016 Ot 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, 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 04/10/2016 Ot V10.3 HX OF BREAST MALIGNANCY 04/10/2016 Ot 174.9 MALIGN NEOPL BREAST NOS 04/10/2016 Ot 288.8 WBC DISEASE NEC 04/10/2016 Ot 401.9 HYPERTENSION NOS 04/10/2016 Ot 706.2 SEBACEOUS CYST 04/10/2016 Ot V72.81 EXAM-PRE- OPERATIVE CARDIOVASCULAR 04/10/2016 Ot V74.8 SCREEN- BACTERIAL DIS NEC 04/10/2016 Ot 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, 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 04/10/2016 Ot 585.3 CHRONIC KIDNEY DISEASE, STAGE III (MODER 04/10/2016 Ot V10.3 HX OF BREAST MALIGNANCY 04/10/2016 Ot V45.71 ACQUIRED ABSENCE OF BREAST AND NIPPLE 04/10/2016 Ot V58.69 OTH MED,LT, CURRENT USE 04/10/2016 Ot 793.89 OTH (ABN) FINDINGS ON RADIOLOGICAL EXAMI 04/10/2016 Ot V10.3 HX OF BREAST MALIGNANCY 04/10/2016 Ot V45.71 ACQUIRED ABSENCE OF BREAST AND NIPPLE 04/10/2016 Ot V76.11 SCRN MAMMO- HIGH RISK PT, MALIGNANT NEOPL 04/10/2016 Ot 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, 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 04/10/2016 Ot 585.3 CHRONIC KIDNEY DISEASE, STAGE III (MODER 04/10/2016 Ot V10.3 HX OF BREAST MALIGNANCY 04/10/2016 Ot V45.71 ACQUIRED ABSENCE OF BREAST AND NIPPLE 04/10/2016 Ot V58.69 OTH MED,LT, CURRENT USE 04/10/2016 Ot 272.4 HYPERLIPIDEMIA NEC/NOS 04/10/2016 Ot V58.69 OTH MED,LT, CURRENT USE 04/10/2016 Ot 272.4 HYPERLIPIDEMIA NEC/NOS 04/10/2016 Ot 401.9 HYPERTENSION NOS 04/10/2016 Ot 414.00 CORON ATHEROSCLER NOS TYPE VESSEL, NATIV 04/10/2016 Ot 174.9 MALIGN NEOPL BREAST NOS 04/10/2016 Ot 793.89 OTH (ABN) FINDINGS ON RADIOLOGICAL EXAMI 04/10/2016 Ot 174.9 MALIGN NEOPL BREAST NOS 04/10/2016 Ot 288.61 LYMPHOCYTOSIS (SYMPTOMATIC) 04/10/2016 Ot 272.4 HYPERLIPIDEMIA NEC/NOS 04/10/2016 Ot 414.01 CORONARY ATHEROSCLEROSIS OF [place] CORON 04/10/2016 Ot 288.61 LYMPHOCYTOSIS (SYMPTOMATIC) 04/10/2016 Ot V10.3 HX OF BREAST MALIGNANCY 04/10/2016 YOSI BRINK Mary Ot 174.9 MALIGN NEOPL BREAST NOS 04/10/2016 TORI VICK, TAVO Alexander Ot 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 O CEREBRAL IN 04/10/2016 TAVO VALLE MD Ot V72.63 PRE-PROCEDURAL LABORATORY EXAMINATION 04/10/2016 TAVO VALLE MD Ot V72.81 [id number] CARDIOVASCULAR 04/10/2016 TAVO VALLE MD Ot V72.83 EXAM PRE-OPERATIVE NEC 04/10/2016 TAVO VALLE MD Ot V74.8 SCREEN-BACTERIAL DIS NEC 04/10/2016 ROQUE VICK, CLIVE Jack Ot 793.80 UNSPEC ABNORMAL MAMMOGRAM 04/10/2016 JIM SHER Ot 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, 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 04/10/2016 SHERJIM Alexander ASSISTANT THERAPY AIDE Ot 368.9 VISUAL DISTURBANCE NOS 04/10/2016 JIM SHER ASSISTANT THERAPY AIDE Ot 585.3 CHRONIC KIDNEY DISEASE, STAGE III (MODER 04/10/2016 JIM SHER ASSISTANT THERAPY AIDE Ot V10.3 HX OF BREAST MALIGNANCY 04/10/2016 JIM SHER ASSISTANT THERAPY AIDE Ot V45.71 ACQUIRED ABSENCE OF BREAST AND NIPPLE 04/10/2016 JIM SHER ASSISTANT THERAPY AIDE Ot V58.69 OTH MED,LT,CURRENT USE 04/10/2016 JIM SHER ASSISTANT THERAPY AIDE Ot V87.41 PERSONAL HISTORY OF ANTINEOPLASTIC CHEMO 04/10/2016 LLUVIA GARDUNO MD Ot 272.4 HYPERLIPIDEMIA NEC/NOS 04/10/2016 LLUVIA GARDUNO MD Ot 414.01 CORONARY ATHEROSCLEROSIS OF [place] CORON 04/10/2016 TAVO VALLE MD S Ot 790.29 OTHER ABNORMAL GLUCOSE 04/10/2016 TAVO VALLE MD S Ot 682.2 CELLULITIS OF TRUNK 04/10/2016 TAVO VALLE MD S Ot V72.84 EXAM PRE-OPERATIVE NOS 04/10/2016 LLUVIA GARDUNO MD Ot 272.4 HYPERLIPIDEMIA NEC/NOS 04/10/2016 LLUVIA GARDUNO MD Ot 401.9 HYPERTENSION NOS 04/10/2016 LLUVIA GARDUNO MD Ot 414.00 CORON ATHEROSCLER NOS TYPE VESSEL, NATIV 04/10/2016 LLUVIA GARDUNO MD Ot 786.50 CHEST PAIN NOS 04/10/2016 LLUVIA GARDUNO MD Ot 272.4 HYPERLIPIDEMIA NEC/NOS 04/10/2016 LLUVIA GARDUNO MD Ot 305.1 TOBACCO USE DISORDER 04/10/2016 LLUVIA GARDUNO MD Ot 401.9 HYPERTENSION NOS 04/10/2016 LLUVIA GARDUNO MD Ot 414.00 CORON ATHEROSCLER NOS TYPE VESSEL, NATIV 04/10/2016 LLUVIA GARDUNO MD Ot 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 O CEREBRAL IN 04/10/2016 LLUVIA GARDUNO MD Ot 786.50 CHEST PAIN NOS 04/10/2016 YOSI BRINK Ot 174.9 MALIGN NEOPL BREAST NOS 04/10/2016 YOSI BRINK Ot 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, 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 04/10/2016 KEENA, BOBAN N Ot 585.3 CHRONIC KIDNEY DISEASE, STAGE III (MODER 04/10/2016 LLUVIA GARDUNO MD Ot 272.4 HYPERLIPIDEMIA NEC/NOS 04/10/2016 LLUVIA GARDUNO MD Ot 401.9 HYPERTENSION NOS 04/10/2016 LLUVIA GARDUNO MD Ot 414.00 CORON ATHEROSCLER NOS TYPE VESSEL, NATIV 04/10/2016 LLUVIA GARDUNO MD Ot 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 O CEREBRAL IN 04/10/2016 LLUVIA GARDUNO MD Ot 786.09 RESPIRATORY ABNORM NEC 04/10/2016 JIM SHER Ot 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, 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 04/10/2016 JIM SHER Ot 457.1 OTHER LYMPHEDEMA 04/10/2016 JIM SHER Ot 682.3 CELLULITIS OF ARM 04/10/2016 JIM SHER Ot V10.3 HX OF BREAST MALIGNANCY 04/10/2016 JIM SHER Ot V45.71 ACQUIRED ABSENCE OF BREAST AND NIPPLE 04/10/2016 JIM SHER Ot V58.69 OTH MED,LT,CURRENT USE 04/10/2016 JIM SHER Ot V87.41 PERSONAL HISTORY OF ANTINEOPLASTIC CHEMO 04/10/2016 TAVO VALLE MD Ot 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 O CEREBRAL IN 04/10/2016 TAVO VALLE MD Ot 433.30 MULT BILTRAL ARTERY OCCLUSION WO CEREBRA 04/10/2016 TAVO VALLE MD Ot 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 O CEREBRAL IN 04/10/2016 TAVO VALLE MD Ot V72.63 PRE-PROCEDURAL LABORATORY EXAMINATION 04/10/2016 TAVO VALLE MD Ot V72.81 IFAT-VLR-JUOMHNURL CARDIOVASCULAR 04/10/2016 TAVO VALLE MD Ot V72.83 EXAM PRE-OPERATIVE NEC 04/10/2016 TAVO VALLE MD Ot V74.8 SCREEN-BACTERIAL DIS NEC 04/10/2016 JIM SHERP Ot 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, 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 04/10/2016 JIM SHERP Ot 457.1 OTHER LYMPHEDEMA 04/10/2016 SHER, HILAH S ASSISTANT THERAPY AIDE Ot 682.3 CELLULITIS OF ARM 04/10/2016 JIM SHER ASSISTANT THERAPY AIDE Ot V10.3 HX OF BREAST MALIGNANCY 04/10/2016 JIM SHER ASSISTANT THERAPY AIDE Ot V45.71 ACQUIRED ABSENCE OF BREAST AND NIPPLE 04/10/2016 JIM SHER ASSISTANT THERAPY AIDE Ot V58.69 OTH MED,LT,CURRENT USE 04/10/2016 JIM SHER ASSISTANT THERAPY AIDE Ot V87.41 PERSONAL HISTORY OF ANTINEOPLASTIC CHEMO 04/10/2016 JIM SHER ASSISTANT THERAPY AIDE Ot 174.9 MALIGN NEOPL BREAST NOS 04/10/2016 JIM SHER ASSISTANT THERAPY AIDE Ot V76.12 OTH SCREEN MAMMO-MALIGN NEOPLASM OF [place] 04/10/2016 Ot 786.05 SHORTNESS OF BREATH 04/10/2016 YOSI BRINK Ot 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, 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 04/10/2016 YOSI BRINK Ot 457.1 OTHER LYMPHEDEMA 04/10/2016 YOSI BRINK Ot 682.3 CELLULITIS OF ARM 04/10/2016 YOSI BRINK Ot V10.3 HX OF BREAST MALIGNANCY 04/10/2016 YOSI BRINK Ot V45.71 ACQUIRED ABSENCE OF BREAST AND NIPPLE 04/10/2016 YOSI BRINK Ot V58.69 OTH MED,LT,CURRENT USE 04/10/2016 YOSI BRINK Ot V87.41 PERSONAL HISTORY OF ANTINEOPLASTIC CHEMO 04/10/2016 LLUVIA GARDUNO MD Ot E78.2 MIXED HYPERLIPIDEMIA 04/10/2016 LLUVIA GARDUNO MD Ot I10 ESSENTIAL (PRIMARY) HYPERTENSION 04/10/2016 LLUVIA GARDUNO MD Ot I25.10 ATHSCL HEART DISEASE OF [place] CORONARY 04/10/2016 LLUVIA GARDUNO MD Ot 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 04/10/2016 LLUVIA GARDUNO MD Ot E78.2 MIXED HYPERLIPIDEMIA 04/10/2016 LLUVIA GARDUNO MD Ot I10 ESSENTIAL (PRIMARY) HYPERTENSION 04/10/2016 LLUVIA GARDUNO MD Ot I25.10 ATHSCL HEART DISEASE OF [place] CORONARY 04/10/2016 LLUVIA GARDUNO MD Ot 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 04/10/2016 JIM SHER Ot 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 04/10/2016 JIM SHER Ot 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 04/10/2016 JIM SHER Ot Z85.3 PERSONAL HISTORY OF MALIGNANT NEOPLASM O 04/10/2016 MINNIE SELF DO Ot E66.9 OBESITY, UNSPECIFIED 04/10/2016 MINNIE SLEF DO Ot I10 ESSENTIAL (PRIMARY) HYPERTENSION 04/10/2016 MINNIE SELF DO Ot I25.10 ATHSCL HEART DISEASE OF [place] CORONARY 04/10/2016 MINNIE SELF DO Ot I44.7 LEFT BUNDLE-BRANCH BLOCK, UNSPECIFIED 04/10/2016 MINNIE SELF DO Ot R41.3 OTHER AMNESIA 04/10/2016 MINNIE SELF DO Ot E66.9 OBESITY, UNSPECIFIED 04/10/2016 MINNIE SELF DO Ot I10 ESSENTIAL (PRIMARY) HYPERTENSION 04/10/2016 MINNIE SELF DO Ot I25.10 ATHSCL HEART DISEASE OF [place] CORONARY 04/10/2016 MINNIE SELF DO Ot I44.7 LEFT BUNDLE-BRANCH BLOCK, UNSPECIFIED 04/10/2016 MINNIE SELF DO Ot R41.3 OTHER AMNESIA 04/10/2016 JIM SHER Ot 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 04/10/2016 JIM SHER Ot Z12.31 ENCNTR SCREEN MAMMOGRAM FOR MALIGNANT NE 04/10/2016 MINNIE SELF DO Ot G47.33 OBSTRUCTIVE SLEEP APNEA (ADULT) (PEDIATR 04/10/2016 MINNIE SELF DO Ot J44.9 CHRONIC OBSTRUCTIVE PULMONARY DISEASE, U 04/10/2016 MINNIE SELF DO Ot R06.00 DYSPNEA, UNSPECIFIED 04/10/2016 YOSI BRINK Ot 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 04/11/2016 LAUREEN VICK, LLUVIA Martínez Ot E78.2 MIXED HYPERLIPIDEMIA 04/11/2016 LLUVIA GARDUNO MD Ot G47.33 OBSTRUCTIVE SLEEP APNEA (ADULT) (PEDIATR 04/11/2016 LLUVIA GARDUNO MD Ot I10 ESSENTIAL (PRIMARY) HYPERTENSION 04/11/2016 LLUVIA GARDUNO MD Ot I25.10 ATHSCL HEART DISEASE OF [place] CORONARY 04/11/2016 LLUVIA GARDUNO MD Ot R07.9 CHEST PAIN, UNSPECIFIED 05/03/2016 MINNIE SELF DO Ot G47.33 OBSTRUCTIVE SLEEP APNEA (ADULT) (PEDIATR 05/03/2016 MINNIE SELF DO Ot J44.9 CHRONIC OBSTRUCTIVE PULMONARY DISEASE, U 05/03/2016 MINNIE SELF DO Ot R06.00 DYSPNEA, UNSPECIFIED 05/06/2016 MAYTE BROWER MD Ot 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 05/06/2016 MAYTE BROWER MD Ot E78.00 PURE HYPERCHOLESTEROLEMIA, UNSPECIFIED 05/06/2016 MAYTE BROWER MD Ot E86.0 DEHYDRATION 05/06/2016 MAYET BROWER MD Ot F32.9 MAJOR DEPRESSIVE DISORDER, SINGLE EPISOD 05/06/2016 MAYTE BROWER MD Ot F41.9 ANXIETY DISORDER, UNSPECIFIED 05/06/2016 MAYTE BROWER MD Ot G47.33 OBSTRUCTIVE SLEEP APNEA (ADULT) (PEDIATR 05/06/2016 MAYTE BROWER MD Ot I10 ESSENTIAL (PRIMARY) HYPERTENSION 05/06/2016 MAYTE BROWER MD Ot I25.10 ATHSCL HEART DISEASE OF [place] CORONARY 05/06/2016 MAYTE BROWER MD Ot I89.0 LYMPHEDEMA, NOT ELSEWHERE CLASSIFIED 05/06/2016 MAYTE BROWER MD Ot J20.9 ACUTE BRONCHITIS, UNSPECIFIED 05/06/2016 MAYTE BROWER MD Ot J44.0 CHRONIC OBSTRUCTIVE PULMON DISEASE W ACU 05/06/2016 MAYTE BROWER MD Ot J44.1 CHRONIC OBSTRUCTIVE PULMONARY DISEASE W 05/06/2016 MAYTE BROWER MD Ot K21.9 GASTRO-ESOPHAGEAL REFLUX DISEASE WITHOUT 05/06/2016 MAYTE BROWER MD Ot M17.11 UNILATERAL PRIMARY OSTEOARTHRITIS, RIGHT 05/06/2016 MAYTE BROWER MD Ot N30.00 ACUTE CYSTITIS WITHOUT HEMATURIA 05/06/2016 MAYTE BROWER MD Ot S86.801A UNSP INJURY OF MUSC/TEND AT LOWER LEG LE 05/06/2016 LEONARDA VICK, MAYTE Malave Ot W19.XXXA UNSPECIFIED FALL, INITIAL ENCOUNTER 05/06/2016 MAYTE BROWER MD Ot Y92.[address] 05/06/2016 MAYTE BROWER MD Ot Z85.3 PERSONAL HISTORY OF MALIGNANT NEOPLASM O 05/08/2016 LLUVIA GARDUNO MD Ot E78.2 MIXED HYPERLIPIDEMIA 05/08/2016 LLUVIA GARDUNO MD Ot G47.33 OBSTRUCTIVE SLEEP APNEA (ADULT) (PEDIATR 05/08/2016 LLUVIA GARDUNO MD Ot I10 ESSENTIAL (PRIMARY) HYPERTENSION 05/08/2016 LLUVIA GARDUNO MD Ot I25.10 ATHSCL HEART DISEASE OF [place] CORONARY 05/08/2016 LLUVIA GARDUNO MD Ot R07.9 CHEST PAIN, UNSPECIFIED 05/14/2016 LLUVIA GARDUNO MD Ot E78.2 MIXED HYPERLIPIDEMIA 05/14/2016 LLUVIA GARDUNO MD Ot G47.33 OBSTRUCTIVE SLEEP APNEA (ADULT) (PEDIATR 05/14/2016 LLUVIA GARDUNO MD Ot I10 ESSENTIAL (PRIMARY) HYPERTENSION 05/14/2016 LLUVIA GARDUNO MD Ot I25.10 ATHSCL HEART DISEASE OF [place] CORONARY 05/14/2016 LLUVIA GARDUNO MD Ot R07.9 CHEST PAIN, UNSPECIFIED 05/23/2016 JIM SHERP Ot Z12.31 ENCNTR SCREEN MAMMOGRAM FOR MALIGNANT NE 05/27/2016 JIM SHERP Ot Z12.31 ENCNTR SCREEN MAMMOGRAM FOR MALIGNANT NE 05/29/2016 JIM SHERP Ot 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 05/29/2016 JIM SHER ASSISTANT THERAPY AIDE Ot Z12.31 ENCNTR SCREEN MAMMOGRAM FOR MALIGNANT NE 06/17/2016 JIM SHERP Ot 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 06/17/2016 JIM SHERP Ot Z12.31 ENCNTR SCREEN MAMMOGRAM FOR MALIGNANT NE 07/01/2016 YOSI BRINK Ot 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 07/01/2016 YOSI BRINK Ot 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 07/01/2016 YOSI BRINK N Ot Z85.3 PERSONAL HISTORY OF MALIGNANT NEOPLASM O 07/04/2016 YOSI BRINK Ot 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 07/04/2016 YOSI BRINK N Ot 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 07/04/2016 YOSI BRINK N Ot Z85.3 PERSONAL HISTORY OF MALIGNANT NEOPLASM O 07/28/2016 YOSI BRINK N Ot 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 07/28/2016 YOSI BRINK N Ot 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 07/28/2016 YOSI BRINK N Ot Z85.3 PERSONAL HISTORY OF MALIGNANT NEOPLASM O 07/29/2016 YOSI BRINK N Ot 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 07/29/2016 YOSI BRINK Ot 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 07/29/2016 YOSI BRINK N Ot Z85.3 PERSONAL HISTORY OF MALIGNANT NEOPLASM O 08/13/2016 RANDY ALVARADO MD, Ot J44.9 CHRONIC OBSTRUCTIVE PULMONARY DISEASE, U 08/13/2016 RANDY ALVARADO MD, Ot K57.90 DVRTCLOS OF INTEST, 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[facility], W/O PERF 08/27/2016 CLIVE NEVAREZ MD, Ot 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 08/27/2016 CLIVE NEVAREZ MD, Ot 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, UNSPECIFI 09/01/2016 CLIVE NEVAREZ MD, Ot 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 09/01/2016 CLIVE NEVAREZ MD, Ot 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, UNSPECIFI 09/15/2016 RANDY ALVARADO MD, Ot J44.9 CHRONIC OBSTRUCTIVE PULMONARY DISEASE, U 09/15/2016 RANDY ALVARADO MD, Ot K57.90 DVRTCLOS OF INTEST, PART UNSP, W/O PERF 09/22/2016 CLIVE NEVAREZ MD, Ot 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 09/22/2016 CLIVE NEVAREZ MD, Ot 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, UNSPECIFI 10/10/2016 CHRISTIANO VICK, RANDY Rosas Ot J44.9 CHRONIC OBSTRUCTIVE PULMONARY DISEASE, U 10/10/2016 CHRISTIANO VICK, RANDY Rosas Ot K57.90 DVRTCLOS OF INTEST, PART UNSP, W/O PERF 10/28/2016 KEENA YOSI Hernandez Ot 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 10/28/2016 KEENAYOSI Ot Z79.899 OTHER SKILLED NURSING (CURRENT) DRUG THERAPY 10/28/2016 KEENAYOSI Ot Z85.3 PERSONAL HISTORY OF MALIGNANT NEOPLASM O 12/01/2016 YOSI BRINK Ot 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 12/01/2016 YOSI BRINK Ot E78.00 PURE HYPERCHOLESTEROLEMIA, UNSPECIFIED 12/01/2016 YOSI BRINK Ot E83.42 HYPOMAGNESEMIA 12/01/2016 KEENAYOSI Ot F03.90 UNSPECIFIED DEMENTIA WITHOUT BEHAVIORAL 12/01/2016 YOSI BRINK Ot F41.9 ANXIETY DISORDER, UNSPECIFIED 12/01/2016 KEENAYOSI Ot G25.81 RESTLESS LEGS SYNDROME 12/01/2016 YOSI BRINK Ot I12.9 HYPERTENSIVE CHRONIC KIDNEY DISEASE W ST 12/01/2016 YOSI BRINK Ot I25.10 ATHSCL HEART DISEASE OF [place] CORONARY 12/01/2016 YOSI BRINK Ot J44.9 CHRONIC OBSTRUCTIVE PULMONARY DISEASE, U 12/01/2016 KEENAYOSI Ot N18.3 CHRONIC KIDNEY DISEASE, STAGE 3 (MODERAT 12/01/2016 YOSI BRINK Ot 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 12/01/2016 YOSI BRINK Ot Z85.3 PERSONAL HISTORY OF MALIGNANT NEOPLASM O 12/01/2016 YOSI BRINK Ot Z87.891 PERSONAL HISTORY OF NICOTINE DEPENDENCE 12/01/2016 YOSI BRINK Ot Z90.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 12/01/2016 YOSI BRINK Ot Z92.21 PERSONAL HISTORY OF ANTINEOPLASTIC CHEMO 12/18/2016 YOSI BRINK Ot 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 12/18/2016 KEENA, BOBAN N Ot E78.00 PURE HYPERCHOLESTEROLEMIA, UNSPECIFIED 12/18/2016 KEENA YOSI N Ot E83.42 HYPOMAGNESEMIA 12/18/2016 KEENA YOSI Hernandez Ot F03.90 UNSPECIFIED DEMENTIA WITHOUT BEHAVIORAL 12/18/2016 KEENA YOSI Hernandez Ot F41.9 ANXIETY DISORDER, UNSPECIFIED 12/18/2016 KEENA YOSI Hernandez Ot G25.81 RESTLESS LEGS SYNDROME 12/18/2016 KEENA YOSI Hernandez Ot I12.9 HYPERTENSIVE CHRONIC KIDNEY DISEASE W ST 12/18/2016 KEENA YOSI Hernandez Ot I25.10 ATHSCL HEART DISEASE OF [place] CORONARY 12/18/2016 KEENAYOSI Ot J44.9 CHRONIC OBSTRUCTIVE PULMONARY DISEASE, U 12/18/2016 KEENA YOSI Hernandez Ot N18.3 CHRONIC KIDNEY DISEASE, STAGE 3 (MODERAT 12/18/2016 KEENAYOSI Ot Z79.899 OTHER SKILLED NURSING (CURRENT) DRUG THERAPY 12/18/2016 KEENAYOSI Ot Z85.3 PERSONAL HISTORY OF MALIGNANT NEOPLASM O 12/18/2016 KEENAYOSI Ot Z87.891 PERSONAL HISTORY OF NICOTINE DEPENDENCE 12/18/2016 KEENA, YOSI Hernandez Ot Z90.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 12/18/2016 KEENAYOSI Ot Z92.21 PERSONAL HISTORY OF ANTINEOPLASTIC CHEMO 01/25/2017 KEENA YOSI Hernandez Ot 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 01/25/2017 KEENA YOSI N Ot E78.00 PURE HYPERCHOLESTEROLEMIA, UNSPECIFIED 01/25/2017 KEENAYOSI Ot E83.42 HYPOMAGNESEMIA 01/25/2017 KEENA YOSI N Ot F03.90 UNSPECIFIED DEMENTIA WITHOUT BEHAVIORAL 01/25/2017 KEENA YOSI Hernandez Ot F41.9 ANXIETY DISORDER, UNSPECIFIED 01/25/2017 KEENAYOSI N Ot G25.81 RESTLESS LEGS SYNDROME 01/25/2017 KEENAYOSI N Ot I12.9 HYPERTENSIVE CHRONIC KIDNEY DISEASE W ST 01/25/2017 YOSI BRINK N Ot I25.10 ATHSCL HEART DISEASE OF [place] CORONARY 01/25/2017 YOSI BRINK Ot J44.9 CHRONIC OBSTRUCTIVE PULMONARY DISEASE, U 01/25/2017 KEENA, BOBAN N Ot N18.3 CHRONIC KIDNEY DISEASE, STAGE 3 (MODERAT 01/25/2017 KEENA, YOSI N Ot Z79.899 OTHER SKILLED NURSING (CURRENT) DRUG THERAPY 01/25/2017 KEENA, YOSI N Ot Z85.3 PERSONAL HISTORY OF MALIGNANT NEOPLASM O 01/25/2017 KEENA, YOSI N Ot Z87.891 PERSONAL HISTORY OF NICOTINE DEPENDENCE 01/25/2017 YOSI BRINK Ot Z90.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 01/25/2017 YOSI BRINK Ot Z92.21 PERSONAL HISTORY OF ANTINEOPLASTIC CHEMO 04/12/2017 ROQUE VICK, CLIVE Jack Ot M79.644 PAIN IN RIGHT FINGER(S) 04/12/2017 CLIVE NEVAREZ MD Ot M79.645 PAIN IN LEFT FINGER(S) 04/28/2017 CLIVE NEVAREZ MD Ot M79.644 PAIN IN RIGHT FINGER(S) 04/28/2017 CLIVE NEVAREZ MD Ot M79.645 PAIN IN LEFT FINGER(S) 04/30/2017 YOSI BRINK Ot 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 04/30/2017 KEENAYOSI N Ot E78.00 PURE HYPERCHOLESTEROLEMIA, UNSPECIFIED 04/30/2017 YOSI BRINK N Ot E83.42 HYPOMAGNESEMIA 04/30/2017 YOSI BRINK N Ot F03.90 UNSPECIFIED DEMENTIA WITHOUT BEHAVIORAL 04/30/2017 YOSI BRINK N Ot F41.9 ANXIETY DISORDER, UNSPECIFIED 04/30/2017 YOSI BRINK N Ot G25.81 RESTLESS LEGS SYNDROME 04/30/2017 YOSI BRINK N Ot I12.9 HYPERTENSIVE CHRONIC KIDNEY DISEASE W ST 04/30/2017 YOSI BRINK N Ot I25.10 ATHSCL HEART DISEASE OF [place] CORONARY 04/30/2017 YOSI BRINK N Ot J44.9 CHRONIC OBSTRUCTIVE PULMONARY DISEASE, U 04/30/2017 KEENAYOSI N Ot N18.3 CHRONIC KIDNEY DISEASE, STAGE 3 (MODERAT 04/30/2017 YOSI BRINK N Ot 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 04/30/2017 YOSI BRINK N Ot Z85.3 PERSONAL HISTORY OF MALIGNANT NEOPLASM O 04/30/2017 YOSI BRINK Ot Z87.891 PERSONAL HISTORY OF NICOTINE DEPENDENCE 04/30/2017 YOSI BRINK Ot Z90.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 04/30/2017 YOSI BRINK Ot Z92.21 PERSONAL HISTORY OF ANTINEOPLASTIC CHEMO 05/14/2017 CLIVE NEVAREZ MD Ot M79.644 PAIN IN RIGHT FINGER(S) 05/14/2017 CLIVE NEVAREZ MD Ot M79.645 PAIN IN LEFT FINGER(S) 05/20/2017 JIM SHER ASSISTANT THERAPY AIDE Ot Z12.31 ENCNTR SCREEN MAMMOGRAM FOR MALIGNANT NE 05/20/2017 LEONELA JAMES Ot E78.2 MIXED HYPERLIPIDEMIA 05/20/2017 LEONELA JAMES Ot I10 ESSENTIAL (PRIMARY) HYPERTENSION 05/20/2017 LEONELA JAMES Ot I25.10 ATHSCL HEART DISEASE OF [place] CORONARY 05/20/2017 LEONELA JAMES Ot 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 05/22/2017 YOSI BRINK Ot 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 05/22/2017 YOSI BRINK Ot E78.00 PURE HYPERCHOLESTEROLEMIA, UNSPECIFIED 05/22/2017 YOSI BRINK Ot E83.42 HYPOMAGNESEMIA 05/22/2017 YOSI BRINK Ot F03.90 UNSPECIFIED DEMENTIA WITHOUT BEHAVIORAL 05/22/2017 YOSI BRINK Ot F41.9 ANXIETY DISORDER, UNSPECIFIED 05/22/2017 YOSI BRINK Ot G25.81 RESTLESS LEGS SYNDROME 05/22/2017 YOSI BRINK Ot I12.9 HYPERTENSIVE CHRONIC KIDNEY DISEASE W ST 05/22/2017 YOSI BRINK Ot I25.10 ATHSCL HEART DISEASE OF [place] CORONARY 05/22/2017 YOSI BRINK Ot J44.9 CHRONIC OBSTRUCTIVE PULMONARY DISEASE, U 05/22/2017 YOSI BRINK Ot N18.3 CHRONIC KIDNEY DISEASE, STAGE 3 (MODERAT 05/22/2017 YOSI BRINK Ot Z79.899 OTHER SKILLED NURSING (CURRENT) DRUG THERAPY 05/22/2017 YOSI BRINK Ot Z85.3 PERSONAL HISTORY OF MALIGNANT NEOPLASM O 05/22/2017 KEENAYOSI Ot Z87.891 PERSONAL HISTORY OF NICOTINE DEPENDENCE 05/22/2017 YOSI BRINK Ot Z90.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 05/22/2017 YOSI BRINK Ot Z92.21 PERSONAL HISTORY OF ANTINEOPLASTIC CHEMO 05/28/2017 SHERJIM Alexander ASSISTANT THERAPY AIDE Ot Z12.31 ENCNTR SCREEN MAMMOGRAM FOR MALIGNANT NE 05/28/2017 SHERJIM Alexander S ASSISTANT THERAPY AIDE Ot Z85.3 PERSONAL HISTORY OF MALIGNANT NEOPLASM O 05/28/2017 SHER HILBELA S ASSISTANT THERAPY AIDE Ot Z90.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 06/22/2017 SHERJIM S ASSISTANT THERAPY AIDE Ot Z12.31 ENCNTR SCREEN MAMMOGRAM FOR MALIGNANT NE 06/22/2017 SHERJIM Alexander S ASSISTANT THERAPY AIDE Ot Z85.3 PERSONAL HISTORY OF MALIGNANT NEOPLASM O 06/22/2017 SHERJIM Alexander S ASSISTANT THERAPY AIDE Ot Z90.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 07/27/2017 YOSI BRINK Ot 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 07/27/2017 YOSI BRINK Ot E78.00 PURE HYPERCHOLESTEROLEMIA, UNSPECIFIED 07/27/2017 YOSI BRINK Ot E83.42 HYPOMAGNESEMIA 07/27/2017 YOSI BRINK Ot F03.90 UNSPECIFIED DEMENTIA WITHOUT BEHAVIORAL 07/27/2017 YOSI BRINK Ot F41.9 ANXIETY DISORDER, UNSPECIFIED 07/27/2017 YOSI BRINK Ot G25.81 RESTLESS LEGS SYNDROME 07/27/2017 YOSI BRINK Ot I12.9 HYPERTENSIVE CHRONIC KIDNEY DISEASE W ST 07/27/2017 YOSI BRINK Ot I25.10 ATHSCL HEART DISEASE OF [place] CORONARY 07/27/2017 YOSI BRINK Ot J44.9 CHRONIC OBSTRUCTIVE PULMONARY DISEASE, U 07/27/2017 YOSI BRINK Ot N18.3 CHRONIC KIDNEY DISEASE, STAGE 3 (MODERAT 07/27/2017 YOSI BRINK Ot Z79.899 OTHER SKILLED NURSING (CURRENT) DRUG THERAPY 07/27/2017 YOSI BRINK Ot Z85.3 PERSONAL HISTORY OF MALIGNANT NEOPLASM O 07/27/2017 YOSI BRINK Ot Z87.891 PERSONAL HISTORY OF NICOTINE DEPENDENCE 07/27/2017 YOSI BRINK Mary Ot Z90.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 07/27/2017 YOSI BRINK Mary Ot Z92.21 PERSONAL HISTORY OF ANTINEOPLASTIC CHEMO 07/28/2017 YOSI BRINK Mary Ot 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 07/28/2017 YOSI BRINK Mary Ot E78.00 PURE HYPERCHOLESTEROLEMIA, UNSPECIFIED 07/28/2017 YOSI BRINK Mary Ot E83.42 HYPOMAGNESEMIA 07/28/2017 YOSI BRINK Mary Ot F03.90 UNSPECIFIED DEMENTIA WITHOUT BEHAVIORAL 07/28/2017 YOSI BRINK Mary Ot F41.9 ANXIETY DISORDER, UNSPECIFIED 07/28/2017 YOSI BRINK Mary Ot G25.81 RESTLESS LEGS SYNDROME 07/28/2017 YOSI BRINK Mary Ot I12.9 HYPERTENSIVE CHRONIC KIDNEY DISEASE W ST 07/28/2017 YOSI BRNIK Mary Ot I25.10 ATHSCL HEART DISEASE OF [place] CORONARY 07/28/2017 YOSI BRINK Mary Ot J44.9 CHRONIC OBSTRUCTIVE PULMONARY DISEASE, U 07/28/2017 YOSI BRINK Mary Ot N18.3 CHRONIC KIDNEY DISEASE, STAGE 3 (MODERAT 07/28/2017 YOSI BRINK Mary Ot 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 07/28/2017 YOSI BRINK Mary Ot Z85.3 PERSONAL HISTORY OF MALIGNANT NEOPLASM O 07/28/2017 YOSI BRINK Mary Ot Z87.891 PERSONAL HISTORY OF NICOTINE DEPENDENCE 07/28/2017 YOSI BRINK Mary Ot Z90.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 07/28/2017 YOSI BRINK Mary Ot Z92.21 PERSONAL HISTORY OF ANTINEOPLASTIC CHEMO 08/20/2017 Ot 793.89 OTH (ABN) FINDINGS ON RADIOLOGICAL EXAMI 08/20/2017 Ot V10.3 HX OF BREAST MALIGNANCY 08/20/2017 Ot V45.71 ACQUIRED ABSENCE OF BREAST AND NIPPLE 08/20/2017 Ot V76.11 SCRN MAMMO- HIGH RISK PT, MALIGNANT NEOPL 08/20/2017 Ot 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, 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 08/20/2017 Ot 585.3 CHRONIC KIDNEY DISEASE, STAGE III (MODER 08/20/2017 Ot V10.3 HX OF BREAST MALIGNANCY 08/20/2017 Ot V45.71 ACQUIRED ABSENCE OF BREAST AND NIPPLE 08/20/2017 Ot V58.69 OTH MED,LT, CURRENT USE 08/20/2017 Ot 272.4 HYPERLIPIDEMIA NEC/NOS 08/20/2017 Ot V58.69 OTH MED,LT, CURRENT USE 08/20/2017 Ot 272.4 HYPERLIPIDEMIA NEC/NOS 08/20/2017 Ot 401.9 HYPERTENSION NOS 08/20/2017 Ot 414.00 CORON ATHEROSCLER NOS TYPE VESSEL, NATIV 08/20/2017 Ot 174.9 MALIGN NEOPL BREAST NOS 08/20/2017 Ot 793.89 OTH (ABN) FINDINGS ON RADIOLOGICAL EXAMI 08/20/2017 Ot 174.9 MALIGN NEOPL BREAST NOS 08/20/2017 Ot 288.61 LYMPHOCYTOSIS (SYMPTOMATIC) 08/20/2017 Ot 272.4 HYPERLIPIDEMIA NEC/NOS 08/20/2017 Ot 414.01 CORONARY ATHEROSCLEROSIS OF [place] CORON 08/20/2017 Ot 288.61 LYMPHOCYTOSIS (SYMPTOMATIC) 08/20/2017 Ot V10.3 HX OF BREAST MALIGNANCY 08/20/2017 YOSI BRINK Mary Ot 174.9 MALIGN NEOPL BREAST NOS 08/20/2017 TAVO VALLE MD Ot 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 O CEREBRAL IN 08/20/2017 TAVO VALLE MD Ot V72.63 PRE-PROCEDURAL LABORATORY EXAMINATION 08/20/2017 TAVO VALLE MD Ot V72.81 [id number] CARDIOVASCULAR 08/20/2017 TAVO VALLE MD Ot V72.83 EXAM PRE-OPERATIVE NEC 08/20/2017 TAVO VALLE MD Ot V74.8 SCREEN-BACTERIAL DIS NEC 08/20/2017 CLIVE NEVAREZ MD Ot 793.80 UNSPEC ABNORMAL MAMMOGRAM 08/20/2017 JIM SHERP Ot 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, 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 08/20/2017 JIM SHER ASSISTANT THERAPY AIDE Ot 368.9 VISUAL DISTURBANCE NOS 08/20/2017 JIM SHERP Ot 585.3 CHRONIC KIDNEY DISEASE, STAGE III (MODER 08/20/2017 JIM SHER ASSISTANT THERAPY AIDE Ot V10.3 HX OF BREAST MALIGNANCY 08/20/2017 JIM SHER ASSISTANT THERAPY AIDE Ot V45.71 ACQUIRED ABSENCE OF BREAST AND NIPPLE 08/20/2017 HUNG SHERBELA Catherine ARMSTRONG Ot V58.69 OTH MED,LT,CURRENT USE 08/20/2017 SHERJIM Alexander ASSISTANT THERAPY AIDE Ot V87.41 PERSONAL HISTORY OF ANTINEOPLASTIC CHEMO 08/20/2017 LLUVIA GARDUNO MD Ot 272.4 HYPERLIPIDEMIA NEC/NOS 08/20/2017 LLUVIA GARDUNO MD Ot 414.01 CORONARY ATHEROSCLEROSIS OF [place] CORON 08/20/2017 TORI VICK, TAVO S Ot 790.29 OTHER ABNORMAL GLUCOSE 08/20/2017 TAVO VALLE MD S Ot 682.2 CELLULITIS OF TRUNK 08/20/2017 TAVO VALLE MD S Ot V72.84 EXAM PRE-OPERATIVE NOS 08/20/2017 LLUVIA GARDUNO MD Ot 272.4 HYPERLIPIDEMIA NEC/NOS 08/20/2017 LLUVIA GARDUNO MD Ot 401.9 HYPERTENSION NOS 08/20/2017 LLUVIA GARDUNO MD Ot 414.00 CORON ATHEROSCLER NOS TYPE VESSEL, NATIV 08/20/2017 LLUVIA GARDUNO MD Ot 786.50 CHEST PAIN NOS 08/20/2017 LLUVIA GARDUNO MD Ot 272.4 HYPERLIPIDEMIA NEC/NOS 08/20/2017 LLUVIA GARDUNO MD Ot 305.1 TOBACCO USE DISORDER 08/20/2017 LLUVIA GARDUNO MD Ot 401.9 HYPERTENSION NOS 08/20/2017 LLUVIA GARDUNO MD Ot 414.00 CORON ATHEROSCLER NOS TYPE VESSEL, NATIV 08/20/2017 LLUVIA GARDUNO MD Ot 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 O CEREBRAL IN 08/20/2017 LLUVIA GARDUNO MD Ot 786.50 CHEST PAIN NOS 08/20/2017 YOSI BRINK Ot 174.9 MALIGN NEOPL BREAST NOS 08/20/2017 YOSI BRINK Ot 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, 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 08/20/2017 YOSI BRINK Ot 585.3 CHRONIC KIDNEY DISEASE, STAGE III (MODER 08/20/2017 LLUVIA GARDUNO MD Ot 272.4 HYPERLIPIDEMIA NEC/NOS 08/20/2017 LLUVIA GARDUNO MD Ot 401.9 HYPERTENSION NOS 08/20/2017 LLUVIA GARDUNO MD Ot 414.00 CORON ATHEROSCLER NOS TYPE VESSEL, NATIV 08/20/2017 LLUVIA GARDUNO MD Ot 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 O CEREBRAL IN 08/20/2017 LLUVIA GARDUNO MD Ot 786.09 RESPIRATORY ABNORM NEC 08/20/2017 JIM SHER ASSISTANT THERAPY AIDE Ot 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, 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 08/20/2017 JIM SHER ASSISTANT THERAPY AIDE Ot 457.1 OTHER LYMPHEDEMA 08/20/2017 JIM SHER ASSISTANT THERAPY AIDE Ot 682.3 CELLULITIS OF ARM 08/20/2017 JIM SHER ASSISTANT THERAPY AIDE Ot V10.3 HX OF BREAST MALIGNANCY 08/20/2017 JIM SHER S ASSISTANT THERAPY AIDE Ot V45.71 ACQUIRED ABSENCE OF BREAST AND NIPPLE 08/20/2017 JIM SHER ASSISTANT THERAPY AIDE Ot V58.69 OTH MED,LT,CURRENT USE 08/20/2017 JIM SHERP Ot V87.41 PERSONAL HISTORY OF ANTINEOPLASTIC CHEMO 08/20/2017 TORI VICK, TAVO Alexander Ot 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 O CEREBRAL IN 08/20/2017 TAVO VALLE MD Ot 433.30 MULT BILTRAL ARTERY OCCLUSION WO CEREBRA 08/20/2017 TAVO VALLE MD Ot 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 O CEREBRAL IN 08/20/2017 TAVO VALLE MD Ot V72.63 PRE-PROCEDURAL LABORATORY EXAMINATION 08/20/2017 TAVO VALLE MD Ot V72.81 [id number] CARDIOVASCULAR 08/20/2017 TAVO VALLE MD Ot V72.83 EXAM PRE-OPERATIVE NEC 08/20/2017 TAVO VALLE MD Ot V74.8 SCREEN-BACTERIAL DIS NEC 08/20/2017 JIM SHER ASSISTANT THERAPY AIDE Ot 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, 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 08/20/2017 JIM SHER ASSISTANT THERAPY AIDE Ot 457.1 OTHER LYMPHEDEMA 08/20/2017 JIM SHER ASSISTANT THERAPY AIDE Ot 682.3 CELLULITIS OF ARM 08/20/2017 JIM SHER ASSISTANT THERAPY AIDE Ot V10.3 HX OF BREAST MALIGNANCY 08/20/2017 JIM SHER S ASSISTANT THERAPY AIDE Ot V45.71 ACQUIRED ABSENCE OF BREAST AND NIPPLE 08/20/2017 JIM SHER ASSISTANT THERAPY AIDE Ot V58.69 OTH MED,LT,CURRENT USE 08/20/2017 JMI SHER ASSISTANT THERAPY AIDE Ot V87.41 PERSONAL HISTORY OF ANTINEOPLASTIC CHEMO 08/20/2017 JIM SHER ASSISTANT THERAPY AIDE Ot 174.9 MALIGN NEOPL BREAST NOS 08/20/2017 JIM SHER Ot V76.12 OTH SCREEN MAMMO-MALIGN NEOPLASM OF [place] 08/20/2017 Ot 786.05 SHORTNESS OF BREATH 08/20/2017 YOSI BRINK Mary Ot 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, 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 08/20/2017 YOSI BRINK Mary Ot 457.1 OTHER LYMPHEDEMA 08/20/2017 YOSI BRINK Mary Ot 682.3 CELLULITIS OF ARM 08/20/2017 YOSI BRINK Mary Ot V10.3 HX OF BREAST MALIGNANCY 08/20/2017 YOSI BRINK Mary Ot V45.71 ACQUIRED ABSENCE OF BREAST AND NIPPLE 08/20/2017 YOSI BRINK Mary Ot V58.69 OTH MED,LT,CURRENT USE 08/20/2017 YOSI BRINK Mary Ot V87.41 PERSONAL HISTORY OF ANTINEOPLASTIC CHEMO 08/20/2017 LLUVIA GARDUNO MD Ot E78.2 MIXED HYPERLIPIDEMIA 08/20/2017 LLUVIA GARDUNO MD Ot I10 ESSENTIAL (PRIMARY) HYPERTENSION 08/20/2017 LLUVIA GARDUNO MD Ot I25.10 ATHSCL HEART DISEASE OF [place] CORONARY 08/20/2017 LLUVIA GARDUNO MD Ot 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 08/20/2017 LLUVIA GARDUNO MD Ot E78.2 MIXED HYPERLIPIDEMIA 08/20/2017 LLUVIA GARDUNO MD Ot I10 ESSENTIAL (PRIMARY) HYPERTENSION 08/20/2017 LLUVIA GARDUNO MD Ot I25.10 ATHSCL HEART DISEASE OF [place] CORONARY 08/20/2017 LLUVIA GARDUNO MD Ot 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 08/20/2017 JIM SHER ASSISTANT THERAPY AIDE Ot 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 08/20/2017 JIM SHER ASSISTANT THERAPY AIDE Ot Z79.899 OTHER SKILLED NURSING (CURRENT) DRUG THERAPY 08/20/2017 JIM SHER ASSISTANT THERAPY AIDE Ot Z85.3 PERSONAL HISTORY OF MALIGNANT NEOPLASM O 08/20/2017 MINNIE SELF DO Ot E66.9 OBESITY, UNSPECIFIED 08/20/2017 CLAIR KAUR MINNIE Frieda Ot I10 ESSENTIAL (PRIMARY) HYPERTENSION 08/20/2017 CLAIR KAUR MINNIE Frieda Ot I25.10 ATHSCL HEART DISEASE OF [place] CORONARY 08/20/2017 CLAIR KAUR MINNIE Frieda Ot I44.7 LEFT BUNDLE-BRANCH BLOCK, UNSPECIFIED 08/20/2017 CLAIR KAUR MINNIE Frieda Ot R41.3 OTHER AMNESIA 08/20/2017 MINNIE SELF DO Frieda Ot E66.9 OBESITY, UNSPECIFIED 08/20/2017 CLAIR KAUR MINNIE Frieda Ot I10 ESSENTIAL (PRIMARY) HYPERTENSION 08/20/2017 CLAIR KAUR MINNIE Malave Ot I25.10 ATHSCL HEART DISEASE OF [place] CORONARY 08/20/2017 CLAIR KAUR MINNIE Malave Ot I44.7 LEFT BUNDLE-BRANCH BLOCK, UNSPECIFIED 08/20/2017 CLAIR KAUR MINNIE Malave Ot R41.3 OTHER AMNESIA 08/20/2017 JIM SHER Ot 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 08/20/2017 JIM SHER Ot Z12.31 ENCNTR SCREEN MAMMOGRAM FOR MALIGNANT NE 08/20/2017 MINNIE SELF DO Ot G47.33 OBSTRUCTIVE SLEEP APNEA (ADULT) (PEDIATR 08/20/2017 CLAIR KAUR MINNIE Frieda Ot J44.9 CHRONIC OBSTRUCTIVE PULMONARY DISEASE, U 08/20/2017 CLAIR KAUR MINNIE Frieda Ot R06.00 DYSPNEA, UNSPECIFIED 08/20/2017 YOSI BRINK Ot 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 08/20/2017 LAUREEN VICK, LLUVIA Martínez Ot E78.2 MIXED HYPERLIPIDEMIA 08/20/2017 LLUVIA GARDUNO MD Ot G47.33 OBSTRUCTIVE SLEEP APNEA (ADULT) (PEDIATR 08/20/2017 LLUVIA GARDUNO MD Ot I10 ESSENTIAL (PRIMARY) HYPERTENSION 08/20/2017 LLUVIA GARDUNO MD Ot I25.10 ATHSCL HEART DISEASE OF [place] CORONARY 08/20/2017 LLUVIA GARDUNO MD Ot R07.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 08/20/2017 JIM SHERP Ot Z12.31 ENCNTR SCREEN MAMMOGRAM FOR MALIGNANT NE 08/20/2017 CHRISTIANO VICK, RANDY Rosas Ot J44.9 CHRONIC OBSTRUCTIVE PULMONARY DISEASE, U 08/20/2017 HCRISTIANO VICK, RADNY Rosas Ot K57.90 DVRTCLOS OF INTEST, PART UNSP, W/O PERF 08/20/2017 CLIVE NEVAREZ MD Ot 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 08/20/2017 CLIVE NEVAREZ MD Ot 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, UNSPECIFI 08/20/2017 CLIVE NEVAREZ MD Ot M79.644 PAIN IN RIGHT FINGER(S) 08/20/2017 CLIVE NEVAREZ MD, Ot M79.645 PAIN IN LEFT FINGER(S) 08/20/2017 LEONELA JAMES Ot E78.2 MIXED HYPERLIPIDEMIA 08/20/2017 LEONELA JAMES Ot I10 ESSENTIAL (PRIMARY) HYPERTENSION 08/20/2017 LEONELA JAMES Ot I25.10 ATHSCL HEART DISEASE OF [place] CORONARY 08/20/2017 LEONELA JAMES Ot 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 08/20/2017 JIM SHERP Ot Z12.31 ENCNTR SCREEN MAMMOGRAM FOR MALIGNANT NE 08/20/2017 JIM SHER Ot Z85.3 PERSONAL HISTORY OF MALIGNANT NEOPLASM O 08/20/2017 JIM SHERP Ot Z90.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 08/20/2017 YOSI BRINK Ot 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 08/20/2017 YOSI BRINK Ot E78.00 PURE HYPERCHOLESTEROLEMIA, UNSPECIFIED 08/20/2017 YOSI BRINK Ot E83.42 HYPOMAGNESEMIA 08/20/2017 YOSI BRINK Ot F03.90 UNSPECIFIED DEMENTIA WITHOUT BEHAVIORAL 08/20/2017 YOSI BRINK Ot F41.9 ANXIETY DISORDER, UNSPECIFIED 08/20/2017 YOSI BRINK Ot G25.81 RESTLESS LEGS SYNDROME 08/20/2017 YOSI BRINK Ot I12.9 HYPERTENSIVE CHRONIC KIDNEY DISEASE W ST 08/20/2017 YOSI BRINK N Ot I25.10 ATHSCL HEART DISEASE OF [place] CORONARY 08/20/2017 KEENA, YOSI Hernandez Ot J44.9 CHRONIC OBSTRUCTIVE PULMONARY DISEASE, U 08/20/2017 KEENA JOSEROSIBEL N Ot N18.3 CHRONIC KIDNEY DISEASE, STAGE 3 (MODERAT 08/20/2017 KEENA, JOSEROSIBEL N Ot 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 08/20/2017 KEENA, YOSI N Ot Z85.3 PERSONAL HISTORY OF MALIGNANT NEOPLASM O 08/20/2017 KEENAYOSI N Ot Z87.891 PERSONAL HISTORY OF NICOTINE DEPENDENCE 08/20/2017 KEENAYOSI N Ot Z90.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 08/20/2017 KEENAYOSI Ot Z92.21 PERSONAL HISTORY OF ANTINEOPLASTIC CHEMO 09/09/2017 ROQUE VICK, CLIVE Jack Ot J22 UNSPECIFIED ACUTE LOWER RESPIRATORY INFE 11/30/2017 YOSI BRINK Ot 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 11/30/2017 KEENAYOSI Ot E78.00 PURE HYPERCHOLESTEROLEMIA, UNSPECIFIED 11/30/2017 KEENAYOSI N Ot E83.42 HYPOMAGNESEMIA 11/30/2017 KEENAYOSI Ot F03.90 UNSPECIFIED DEMENTIA WITHOUT BEHAVIORAL 11/30/2017 KEENAYOSI N Ot F41.9 ANXIETY DISORDER, UNSPECIFIED 11/30/2017 KEENAYOSI Ot G25.81 RESTLESS LEGS SYNDROME 11/30/2017 KEENAYOSI Ot I12.9 HYPERTENSIVE CHRONIC KIDNEY DISEASE W ST 11/30/2017 KEENAYOSI Ot I25.10 ATHSCL HEART DISEASE OF [place] CORONARY 11/30/2017 KEENA, YOSI Hernandez Ot J44.9 CHRONIC OBSTRUCTIVE PULMONARY DISEASE, U 11/30/2017 KEENA, YOSI Hernandez Ot N18.3 CHRONIC KIDNEY DISEASE, STAGE 3 (MODERAT 11/30/2017 KEENAYOSI N Ot 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 11/30/2017 KEENAYOSI N Ot Z85.3 PERSONAL HISTORY OF MALIGNANT NEOPLASM O 11/30/2017 YOSI BRINK Ot Z87.891 PERSONAL HISTORY OF NICOTINE DEPENDENCE 11/30/2017 YOSI BRINK Mary Ot Z90.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 11/30/2017 KEENA JOSEROSIBEL Mary Ot Z92.21 PERSONAL HISTORY OF ANTINEOPLASTIC CHEMO 01/27/2018 KEENA YOSI Hernandez Ot 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 01/27/2018 KEENA JOSEROSIBEL Mary Ot E78.00 PURE HYPERCHOLESTEROLEMIA, UNSPECIFIED 01/27/2018 KEENAYOSI Ot E83.42 HYPOMAGNESEMIA 01/27/2018 KEENA YOSI Hernandez Ot F03.90 UNSPECIFIED DEMENTIA WITHOUT BEHAVIORAL 01/27/2018 KEENAYOSI Ot F41.9 ANXIETY DISORDER, UNSPECIFIED 01/27/2018 KEENAYOSI Ot G25.81 RESTLESS LEGS SYNDROME 01/27/2018 KEENAYOSI Ot I12.9 HYPERTENSIVE CHRONIC KIDNEY DISEASE W ST 01/27/2018 KEENAYOSI Ot I25.10 ATHSCL HEART DISEASE OF [place] CORONARY 01/27/2018 KEENAYOSI Ot J44.9 CHRONIC OBSTRUCTIVE PULMONARY DISEASE, U 01/27/2018 KEENA YOSI Hernandez Ot N18.3 CHRONIC KIDNEY DISEASE, STAGE 3 (MODERAT 01/27/2018 KEENA YOSI Hernandez Ot Z79.899 OTHER SKILLED NURSING (CURRENT) DRUG THERAPY 01/27/2018 KEENAYOSI Ot Z85.3 PERSONAL HISTORY OF MALIGNANT NEOPLASM O 01/27/2018 KEENA, YOSI Hernandez Ot Z87.891 PERSONAL HISTORY OF NICOTINE DEPENDENCE 01/27/2018 KEENA, YOSI Hernandez Ot Z90.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 01/27/2018 KEENA YOSI Hernandez Ot Z92.21 PERSONAL HISTORY OF ANTINEOPLASTIC CHEMO 01/28/2018 KEENA YOSI Hernandez Ot 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 01/28/2018 KEENA YOSI Hernandez Ot E78.00 PURE HYPERCHOLESTEROLEMIA, UNSPECIFIED 01/28/2018 KEENAYOSI N Ot E83.42 HYPOMAGNESEMIA 01/28/2018 KEENAYOSI N Ot F03.90 UNSPECIFIED DEMENTIA WITHOUT BEHAVIORAL 01/28/2018 YOSI BRINK Ot F41.9 ANXIETY DISORDER, UNSPECIFIED 01/28/2018 KEENAYOSI N Ot G25.81 RESTLESS LEGS SYNDROME 01/28/2018 YOSI BRINK Ot I12.9 HYPERTENSIVE CHRONIC KIDNEY DISEASE W ST 01/28/2018 YOSI BRINK Ot I25.10 ATHSCL HEART DISEASE OF [place] CORONARY 01/28/2018 YOSI BRINK Ot J44.9 CHRONIC OBSTRUCTIVE PULMONARY DISEASE, U 01/28/2018 YOSI BRINK Ot N18.3 CHRONIC KIDNEY DISEASE, STAGE 3 (MODERAT 01/28/2018 YOSI BRINK Ot 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 01/28/2018 YOSI BRINK Ot Z85.3 PERSONAL HISTORY OF MALIGNANT NEOPLASM O 01/28/2018 YOSI BRINK Ot Z87.891 PERSONAL HISTORY OF NICOTINE DEPENDENCE 01/28/2018 YOSI BRINK Ot Z90.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 01/28/2018 YOSI BRINK Ot Z92.21 PERSONAL HISTORY OF ANTINEOPLASTIC CHEMO 02/01/2018 Ot 272.4 HYPERLIPIDEMIA NEC/NOS 02/01/2018 Ot 414.01 CORONARY ATHEROSCLEROSIS OF [place] CORON 02/01/2018 Ot 288.61 LYMPHOCYTOSIS (SYMPTOMATIC) 02/01/2018 Ot V10.3 HX OF BREAST MALIGNANCY 02/01/2018 YOSI BRINK Ot 174.9 MALIGN NEOPL BREAST NOS 02/01/2018 TORI VICK, TAVO Alexander Ot 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 O CEREBRAL IN 02/01/2018 TORI VICK, TAVO Alexander Ot V72.63 PRE-PROCEDURAL LABORATORY EXAMINATION 02/01/2018 TAVO VALLE MD Ot V72.81 [id number] CARDIOVASCULAR 02/01/2018 TAVO VALLE MD Ot V72.83 EXAM PRE-OPERATIVE NEC 02/01/2018 TAVO VALLE MD Ot V74.8 SCREEN-BACTERIAL DIS NEC 02/01/2018 ROQUE VICK, CLIVE Jack Ot 793.80 UNSPEC ABNORMAL MAMMOGRAM 02/01/2018 JIM SHER Ot 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, 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 02/01/2018 JIM SHER Ot 368.9 VISUAL DISTURBANCE NOS 02/01/2018 JIM SHER Ot 585.3 CHRONIC KIDNEY DISEASE, STAGE III (MODER 02/01/2018 SHER, HILAH S ASSISTANT THERAPY AIDE Ot V10.3 HX OF BREAST MALIGNANCY 02/01/2018 JIM SHER ASSISTANT THERAPY AIDE Ot V45.71 ACQUIRED ABSENCE OF BREAST AND NIPPLE 02/01/2018 JIM SHER ASSISTANT THERAPY AIDE Ot V58.69 OTH MED,LT,CURRENT USE 02/01/2018 JIM SHER ASSISTANT THERAPY AIDE Ot V87.41 PERSONAL HISTORY OF ANTINEOPLASTIC CHEMO 02/01/2018 LLUVIA GARDUNO MD Ot 272.4 HYPERLIPIDEMIA NEC/NOS 02/01/2018 LLUVIA GARDUNO MD Ot 414.01 CORONARY ATHEROSCLEROSIS OF [place] CORON 02/01/2018 TORI VICK, TAVO Alexander Ot 790.29 OTHER ABNORMAL GLUCOSE 02/01/2018 TAVO VALLE MD S Ot 682.2 CELLULITIS OF TRUNK 02/01/2018 TAVO VALLE MD Ot V72.84 EXAM PRE-OPERATIVE NOS 02/01/2018 LLUVIA GARDUNO MD Ot 272.4 HYPERLIPIDEMIA NEC/NOS 02/01/2018 LLUVIA GARDUNO MD Ot 401.9 HYPERTENSION NOS 02/01/2018 LLUVIA GARDUNO MD Ot 414.00 CORON ATHEROSCLER NOS TYPE VESSEL, NATIV 02/01/2018 LLUVIA GARDUNO MD Ot 786.50 CHEST PAIN NOS 02/01/2018 LLUVIA GARDUNO MD Ot 272.4 HYPERLIPIDEMIA NEC/NOS 02/01/2018 LLUVIA GARDUNO MD Ot 305.1 TOBACCO USE DISORDER 02/01/2018 LLUVIA GARDUNO MD Ot 401.9 HYPERTENSION NOS 02/01/2018 LLUVIA GARDUNO MD Ot 414.00 CORON ATHEROSCLER NOS TYPE VESSEL, NATIV 02/01/2018 LLUVIA GARDUNO MD Ot 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 O CEREBRAL IN 02/01/2018 LLUVIA GARDUNO MD Ot 786.50 CHEST PAIN NOS 02/01/2018 YOSI BRINK Ot 174.9 MALIGN NEOPL BREAST NOS 02/01/2018 YOSI BRINK Ot 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, 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 02/01/2018 YOSI BRINK Ot 585.3 CHRONIC KIDNEY DISEASE, STAGE III (MODER 02/01/2018 LLUVIA GARDUNO MD Ot 272.4 HYPERLIPIDEMIA NEC/NOS 02/01/2018 LLUVIA GARDUNO MD Ot 401.9 HYPERTENSION NOS 02/01/2018 LAUREEN VICK, LLUVIA Martínez Ot 414.00 CORON ATHEROSCLER NOS TYPE VESSEL, NATIV 02/01/2018 LAUREEN VICK, LLUVIA Martínez Ot 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 O CEREBRAL IN 02/01/2018 LAUREEN VICK, LLUVIA Martínez Ot 786.09 RESPIRATORY ABNORM NEC 02/01/2018 JIM SHERP Ot 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, 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 02/01/2018 JIM SHERP Ot 457.1 OTHER LYMPHEDEMA 02/01/2018 JIM SHER ASSISTANT THERAPY AIDE Ot 682.3 CELLULITIS OF ARM 02/01/2018 JIM SHER ASSISTANT THERAPY AIDE Ot V10.3 HX OF BREAST MALIGNANCY 02/01/2018 JIM SHER ASSISTANT THERAPY AIDE Ot V45.71 ACQUIRED ABSENCE OF BREAST AND NIPPLE 02/01/2018 JIM SHERP Ot V58.69 OTH MED,LT,CURRENT USE 02/01/2018 JIM SHERP Ot V87.41 PERSONAL HISTORY OF ANTINEOPLASTIC CHEMO 02/01/2018 TAVO VALLE MD Ot 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 O CEREBRAL IN 02/01/2018 TAVO VALLE MD Ot 433.30 MULT BILTRAL ARTERY OCCLUSION WO CEREBRA 02/01/2018 TAVO VALLE MD Ot 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 O CEREBRAL IN 02/01/2018 TAVO VALLE MD Ot V72.63 PRE-PROCEDURAL LABORATORY EXAMINATION 02/01/2018 TAVO VALLE MD Ot V72.81 [id number] CARDIOVASCULAR 02/01/2018 TAVO VALLE MD Ot V72.83 EXAM PRE-OPERATIVE NEC 02/01/2018 TAVO VALLE MD Ot V74.8 SCREEN-BACTERIAL DIS NEC 02/01/2018 JIM SHER ASSISTANT THERAPY AIDE Ot 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, 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 02/01/2018 JIM SHERP Ot 457.1 OTHER LYMPHEDEMA 02/01/2018 JIM SHER ASSISTANT THERAPY AIDE Ot 682.3 CELLULITIS OF ARM 02/01/2018 JIM SHER ASSISTANT THERAPY AIDE Ot V10.3 HX OF BREAST MALIGNANCY 02/01/2018 JIM SHER ASSISTANT THERAPY AIDE Ot V45.71 ACQUIRED ABSENCE OF BREAST AND NIPPLE 02/01/2018 JIM SHER Ot V58.69 OTH MED,LT,CURRENT USE 02/01/2018 JIM SHER ASSISTANT THERAPY AIDE Ot V87.41 PERSONAL HISTORY OF ANTINEOPLASTIC CHEMO 02/01/2018 JIM SHER ASSISTANT THERAPY AIDE Ot 174.9 MALIGN NEOPL BREAST NOS 02/01/2018 JIM SHERP Ot V76.12 OTH SCREEN MAMMO-MALIGN NEOPLASM OF [place] 02/01/2018 Ot 786.05 SHORTNESS OF BREATH 02/01/2018 YOSI BRINK Ot 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, 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 02/01/2018 YOSI BRINK Ot 457.1 OTHER LYMPHEDEMA 02/01/2018 YOSI BRINK Ot 682.3 CELLULITIS OF ARM 02/01/2018 YOSI BRINK Ot V10.3 HX OF BREAST MALIGNANCY 02/01/2018 YOSI BRINK Ot V45.71 ACQUIRED ABSENCE OF BREAST AND NIPPLE 02/01/2018 YOSI BRINK Ot V58.69 OTH MED,LT,CURRENT USE 02/01/2018 YOSI BRINK Ot V87.41 PERSONAL HISTORY OF ANTINEOPLASTIC CHEMO 02/01/2018 LLUVIA GARDUNO MD Ot E78.2 MIXED HYPERLIPIDEMIA 02/01/2018 LLUVIA GARDUNO MD Ot I10 ESSENTIAL (PRIMARY) HYPERTENSION 02/01/2018 LLUVIA GARDUNO MD Ot I25.10 ATHSCL HEART DISEASE OF [place] CORONARY 02/01/2018 LLUVIA GARDUNO MD Ot 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 02/01/2018 LLUVIA GARDUNO MD Ot E78.2 MIXED HYPERLIPIDEMIA 02/01/2018 LLUVIA GARDUNO MD Ot I10 ESSENTIAL (PRIMARY) HYPERTENSION 02/01/2018 LLUVIA GARDUNO MD Ot I25.10 ATHSCL HEART DISEASE OF [place] CORONARY 02/01/2018 LLUVIA GARDUNO MD Ot 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 02/01/2018 JIM SHER Ot 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 02/01/2018 JIM SHER ASSISTANT THERAPY AIDE Ot 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 02/01/2018 JIM SHER Ot Z85.3 PERSONAL HISTORY OF MALIGNANT NEOPLASM O 02/01/2018 MINNIE SELF DO Ot E66.9 OBESITY, UNSPECIFIED 02/01/2018 MINNIE SELF DO Ot I10 ESSENTIAL (PRIMARY) HYPERTENSION 02/01/2018 MINNIE SELF DO Ot I25.10 ATHSCL HEART DISEASE OF [place] CORONARY 02/01/2018 MINNIE SELF DO Ot I44.7 LEFT BUNDLE-BRANCH BLOCK, UNSPECIFIED 02/01/2018 MINNIE SELF DO Ot R41.3 OTHER AMNESIA 02/01/2018 MINNIE SELF DO Ot E66.9 OBESITY, UNSPECIFIED 02/01/2018 MINNIE SELF DO Ot I10 ESSENTIAL (PRIMARY) HYPERTENSION 02/01/2018 MINNIE SELF DO Ot I25.10 ATHSCL HEART DISEASE OF [place] CORONARY 02/01/2018 MINNIE SELF DO Ot I44.7 LEFT BUNDLE-BRANCH BLOCK, UNSPECIFIED 02/01/2018 MINNIE SELF DO Ot R41.3 OTHER AMNESIA 02/01/2018 JIM SHER Ot 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 02/01/2018 JIM SHER Ot Z12.31 ENCNTR SCREEN MAMMOGRAM FOR MALIGNANT NE 02/01/2018 MINNIE SELF DO Ot G47.33 OBSTRUCTIVE SLEEP APNEA (ADULT) (PEDIATR 02/01/2018 MINNIE SELF DO Ot J44.9 CHRONIC OBSTRUCTIVE PULMONARY DISEASE, U 02/01/2018 MINNIE SELF DO Ot R06.00 DYSPNEA, UNSPECIFIED 02/01/2018 YOSI BRINK Ot 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 02/01/2018 LAUREEN VICK, LLUVIA Martínez Ot E78.2 MIXED HYPERLIPIDEMIA 02/01/2018 LAUREEN VICK, LLUVIA Martínez Ot G47.33 OBSTRUCTIVE SLEEP APNEA (ADULT) (PEDIATR 02/01/2018 LLUVIA GARDUNO MD Ot I10 ESSENTIAL (PRIMARY) HYPERTENSION 02/01/2018 LLUVIA GARDUNO MD Ot I25.10 ATHSCL HEART DISEASE OF [place] CORONARY 02/01/2018 LLUVIA GARDUNO MD Ot R07.9 CHEST PAIN, UNSPECIFIED 02/01/2018 JIM SHER Ot 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 02/01/2018 JIM SHER Ot Z12.31 ENCNTR SCREEN MAMMOGRAM FOR MALIGNANT NE 02/01/2018 CHRISTIANO VICK, RANDY Rosas Ot J44.9 CHRONIC OBSTRUCTIVE PULMONARY DISEASE, U 02/01/2018 CHRISTIANO VICK, RANDY Rosas Ot K57.90 DVRTCLOS OF INTEST, PART UNSP, W/O PERF 02/01/2018 CLIVE NEVAREZ MD, Ot 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 02/01/2018 CLIVE NEVAREZ MD, Ot 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, UNSPECIFI 02/01/2018 CLIVE NEVAREZ MD, Ot M79.644 PAIN IN RIGHT FINGER(S) 02/01/2018 CLIVE NEVAREZ MD, Ot M79.645 PAIN IN LEFT FINGER(S) 02/01/2018 LEONELA JAMES Ot E78.2 MIXED HYPERLIPIDEMIA 02/01/2018 LEONELA JAMES Ot I10 ESSENTIAL (PRIMARY) HYPERTENSION 02/01/2018 LEONELA JAMES Ot I25.10 ATHSCL HEART DISEASE OF [place] CORONARY 02/01/2018 LEONELA JAMES Ot 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 02/01/2018 JIM SHER Ot Z12.31 ENCNTR SCREEN MAMMOGRAM FOR MALIGNANT NE 02/01/2018 JIM SHER Ot Z85.3 PERSONAL HISTORY OF MALIGNANT NEOPLASM O 02/01/2018 JIM SHER Ot Z90.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 02/01/2018 CLIVE NEVAREZ MD Ot J22 UNSPECIFIED ACUTE LOWER RESPIRATORY INFE 02/01/2018 YOSI BRINK Ot 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 02/01/2018 YOSI BRINK Ot E78.00 PURE HYPERCHOLESTEROLEMIA, UNSPECIFIED 02/01/2018 YOSI BRINK Ot E83.42 HYPOMAGNESEMIA 02/01/2018 OYSI BRINK Ot F03.90 UNSPECIFIED DEMENTIA WITHOUT BEHAVIORAL 02/01/2018 YOSI BRINK Ot F41.9 ANXIETY DISORDER, UNSPECIFIED 02/01/2018 YOSI BRINK Mary Ot G25.81 RESTLESS LEGS SYNDROME 02/01/2018 YOSI BRINK Mary Ot I12.9 HYPERTENSIVE CHRONIC KIDNEY DISEASE W ST 02/01/2018 YOSI BRINK Mary Ot I25.10 ATHSCL HEART DISEASE OF [place] CORONARY 02/01/2018 YOSI BRINK Mary Ot J44.9 CHRONIC OBSTRUCTIVE PULMONARY DISEASE, U 02/01/2018 YOSI BRINK Mary Ot N18.3 CHRONIC KIDNEY DISEASE, STAGE 3 (MODERAT 02/01/2018 YOSI BRINK Mary Ot 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 02/01/2018 YOSI BRINK Mary Ot Z85.3 PERSONAL HISTORY OF MALIGNANT NEOPLASM O 02/01/2018 YOSI BRINK Mary Ot Z87.891 PERSONAL HISTORY OF NICOTINE DEPENDENCE 02/01/2018 YOSI BRINK Mary Ot Z90.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 02/01/2018 YOSI BRINK Mary Ot Z92.21 PERSONAL HISTORY OF ANTINEOPLASTIC CHEMO Procedures Code Description Performed By Performed On 00.40 PROCEDURE ON SINGLE VESSEL 09/24/2012 38.12 HEAD NECK ENDARTER NEC 09/24/2012 00.40 PROCEDURE ON SINGLE VESSEL 01/16/2014 38.12 HEAD NECK ENDARTER NEC 01/16/2014 Results Test Result Range Complete blood count (CBC) with automated white blood cell (WBC) differential - 05/03/16 13:43 Blood leukocytes automated count (number/volume) 17.6 10*3/uL 4.3-11.0 Blood erythrocytes automated count (number/volume) 4.61 10*6/uL 4.35-5.85 Venous blood hemoglobin measurement (mass/volume) 13.0 g/dL 11.5-16.0 Blood hematocrit (volume fraction) 40 % 35-52 Automated erythrocyte mean corpuscular volume 87 [foz_us] 80-99 Automated erythrocyte mean corpuscular hemoglobin (mass per erythrocyte) 28 pg 25-34 Automated erythrocyte mean corpuscular hemoglobin concentration measurement ( mass/volume) 32 g/dL 32-36 Automated erythrocyte distribution width ratio 14.1 % 10.0-14.5 Automated blood platelet count (count/volume) 343 10*3/uL 130-400 Automated blood platelet mean volume measurement 10.6 [foz_us] 7.4-10.4 Automated blood neutrophils/100 leukocytes 53 % 42-75 Automated blood lymphocytes/100 leukocytes 31 % 12-44 Blood monocytes/100 leukocytes 16 % 0-12 Automated blood eosinophils/100 leukocytes 0 % 0-10 Automated blood basophils/100 leukocytes 1 % 0-10 Blood neutrophils automated count (number/volume) 9.3 10*3 1.8-7.8 Blood lymphocytes automated count (number/volume) 5.4 10*3 1.0-4.0 Blood monocytes automated count (number/volume) 2.8 10*3 0.0-1.0 Automated eosinophil count 0.1 10*3/uL 0.0-0.3 Automated blood basophil count (count/volume) 0.1 10*3/uL 0.0-0.1 PT panel in platelet poor plasma by coagulation assay - 05/03/16 13:43 Prothrombin time (PT) in platelet poor plasma by coagulation assay 12.9 s 12.2-14.7 INR in platelet poor plasma or blood by coagulation assay 1.0 0.8-1.4 Blood lactic acid measurement (moles/volume) - 05/03/16 13:43 Blood lactic acid measurement (moles/volume) 1.3 mmol/L 0.5-2.0 Comprehensive metabolic panel - 05/03/16 13:43 Serum or plasma sodium measurement (moles/volume) 138 mmol/L 135-145 Serum or plasma potassium measurement (moles/volume) 3.6 mmol/L 3.6-5.0 Serum or plasma chloride measurement (moles/volume) 101 mmol/L 98-107 Carbon dioxide 21 mmol/L 21-32 Serum or plasma anion gap determination (moles/volume) 16 mmol/L 5-14 Serum or plasma urea nitrogen measurement (mass/volume) 21 mg/dL 7-18 Serum or plasma creatinine measurement (mass/volume) 1.29 mg/dL 0.60-1.30 Serum or plasma urea nitrogen/creatinine mass ratio 16 NRG Serum or plasma creatinine measurement with calculation of estimated glomerular filtration rate 40 NRG Serum or plasma glucose measurement (mass/volume) 120 mg/dL 70-105 Serum or plasma calcium measurement (mass/volume) 9.3 mg/dL 8.5-10.1 Serum or plasma total bilirubin measurement (mass/volume) 1.1 mg/dL 0.1-1.0 Serum or plasma alkaline phosphatase measurement (enzymatic activity/volume) 95 U/L 40-136 Serum or plasma aspartate aminotransferase measurement (enzymatic activity/ volume) 18 U/L 5-34 Serum or plasma alanine aminotransferase measurement (enzymatic activity/volume ) 14 U/L 0-55 Serum or plasma protein measurement (mass/volume) 7.3 g/dL 6.4-8.2 Serum or plasma albumin measurement (mass/volume) 4.0 g/dL 3.2-4.5 Blood manual differential performed detection - 05/03/16 13:43 Blood monocytes/100 leukocytes 10 % NRG Manual blood segmented neutrophils/100 leukocytes 45 % NRG Blood band neutrophils/100 leukocytes 5 % NRG Manual blood lymphocytes/100 leukocytes 23 % NRG Manual eosinophils/100 leukocytes in nose 1 % NRG Manual blood basophils/100 leukocytes 1 % NRG Manual blood lymphocytes variant/100 leukocytes 15 % NRG Blood polychromasia detection by light microscopy SLIGHT NRG Bacterial blood culture - 05/03/16 13:43 Bacterial blood culture NG NRG Bacterial blood culture - 05/03/16 14:28 Bacterial blood culture NG NRG Complete urinalysis with reflex to culture - 05/03/16 14:39 Urine color determination JONG NRG Urine clarity determination CLEAR NRG Urine pH measurement by test strip 6 5-9 Specific gravity of urine by test strip 1.020 1.016- 1.022 Urine protein assay by test strip, semi-quantitative 3+ NEGATIVE Urine glucose detection by automated test strip NEGATIVE NEGATIVE Erythrocytes detection in urine sediment by light microscopy NEGATIVE NEGATIVE Urine ketones detection by automated test strip 2+ NEGATIVE Urine nitrite detection by test strip NEGATIVE NEGATIVE Urine total bilirubin detection by test strip 1+ NEGATIVE Urine urobilinogen measurement by automated test strip (mass/volume) 1 mg/dL NORMAL Urine leukocyte esterase detection by dipstick 1+ NEGATIVE Automated urine sediment erythrocyte count by microscopy (number/high power field) [HPF] NRG Automated urine sediment leukocyte count by microscopy (number/high power field ) [HPF] NRG Bacteria detection in urine sediment by light microscopy FEW NRG Squamous epithelial cells detection in urine sediment by light microscopy 0-2 NRG Crystals detection in urine sediment by light microscopy NONE NRG Casts detection in urine sediment by light microscopy PRESENT NRG Mucus detection in urine sediment by light microscopy MODERATE NRG Complete urinalysis with reflex to culture YES NRG Hyaline casts detection in urine sediment by light microscopy 10-25 NRG Bacterial urine culture - 05/03/16 14:39 URINE CULTURE RESULTS <10,000/ML NR Complete blood count (CBC) with automated white blood cell (WBC) differential - 05/04/16 05:35 Blood leukocytes automated count (number/volume) 15.7 10*3/uL 4.3-11.0 Blood erythrocytes automated count (number/volume) 4.40 10*6/uL 4.35-5.85 Venous blood hemoglobin measurement (mass/volume) 12.6 g/dL 11.5-16.0 Blood hematocrit (volume fraction) 39 % 35-52 Automated erythrocyte mean corpuscular volume 89 [foz_us] 80-99 Automated erythrocyte mean corpuscular hemoglobin (mass per erythrocyte) 29 pg 25-34 Automated erythrocyte mean corpuscular hemoglobin concentration measurement ( mass/volume) 32 g/dL 32-36 Automated erythrocyte distribution width ratio 14.4 % 10.0-14.5 Automated blood platelet count (count/volume) 352 10*3/uL 130-400 Automated blood platelet mean volume measurement 10.8 [foz_us] 7.4-10.4 Automated blood neutrophils/100 leukocytes 55 % 42-75 Automated blood lymphocytes/100 leukocytes 30 % 12-44 Blood monocytes/100 leukocytes 14 % 0-12 Automated blood eosinophils/100 leukocytes 1 % 0-10 Automated blood basophils/100 leukocytes 0 % 0-10 Blood neutrophils automated count (number/volume) 8.6 10*3 1.8-7.8 Blood lymphocytes automated count (number/volume) 4.7 10*3 1.0-4.0 Blood monocytes automated count (number/volume) 2.1 10*3 0.0-1.0 Automated eosinophil count 0.2 10*3/uL 0.0-0.3 Automated blood basophil count (count/volume) 0.1 10*3/uL 0.0-0.1 Comprehensive metabolic panel - 05/04/16 05:35 Serum or plasma sodium measurement (moles/volume) 140 mmol/L 135-145 Serum or plasma potassium measurement (moles/volume) 3.7 mmol/L 3.6-5.0 Serum or plasma chloride measurement (moles/volume) 108 mmol/L 98-107 Carbon dioxide 19 mmol/L 21-32 Serum or plasma anion gap determination (moles/volume) 13 mmol/L 5-14 Serum or plasma urea nitrogen measurement (mass/volume) 16 mg/dL 7-18 Serum or plasma creatinine measurement (mass/volume) 0.83 mg/dL 0.60-1.30 Serum or plasma urea nitrogen/creatinine mass ratio 19 NRG Serum or plasma creatinine measurement with calculation of estimated glomerular filtration rate > NRG Serum or plasma glucose measurement (mass/volume) 112 mg/dL 70-105 Serum or plasma calcium measurement (mass/volume) 8.9 mg/dL 8.5-10.1 Serum or plasma total bilirubin measurement (mass/volume) 0.4 mg/dL 0.1-1.0 Serum or plasma alkaline phosphatase measurement (enzymatic activity/volume) 95 U/L 40-136 Serum or plasma aspartate aminotransferase measurement (enzymatic activity/ volume) 25 U/L 5-34 Serum or plasma alanine aminotransferase measurement (enzymatic activity/volume ) 15 U/L 0-55 Serum or plasma protein measurement (mass/volume) 7.3 g/dL 6.4-8.2 Serum or plasma albumin measurement (mass/volume) 3.9 g/dL 3.2-4.5 Complete urinalysis with reflex to culture - 05/04/16 13:37 Urine color determination YELLOW NRG Urine clarity determination CLEAR NRG Urine pH measurement by test strip 6 5-9 Specific gravity of urine by test strip 1.010 1.016- 1.022 Urine protein assay by test strip, semi-quantitative 2+ NEGATIVE Urine glucose detection by automated test strip NEGATIVE NEGATIVE Erythrocytes detection in urine sediment by light microscopy NEGATIVE NEGATIVE Urine ketones detection by automated test strip 4+ NEGATIVE Urine nitrite detection by test strip NEGATIVE NEGATIVE Urine total bilirubin detection by test strip NEGATIVE NEGATIVE Urine urobilinogen measurement by automated test strip (mass/volume) NORMAL NORMAL Urine leukocyte esterase detection by dipstick 1+ NEGATIVE Automated urine sediment erythrocyte count by microscopy (number/high power field) NONE NRG Automated urine sediment leukocyte count by microscopy (number/high power field ) [HPF] NRG Bacteria detection in urine sediment by light microscopy FEW NRG Squamous epithelial cells detection in urine sediment by light microscopy RARE NRG Crystals detection in urine sediment by light microscopy NONE NRG Casts detection in urine sediment by light microscopy NONE NRG Mucus detection in urine sediment by light microscopy NEGATIVE NRG Complete urinalysis with reflex to culture NO NRG Blood CBC with ordered manual differential panel - 08/26/16 09:15 Blood leukocytes automated count (number/volume) 11.5 10*3/uL 4.3-11.0 Blood erythrocytes automated count (number/volume) 4.41 10*6/uL 4.35-5.85 Venous blood hemoglobin measurement (mass/volume) 12.6 g/dL 11.5-16.0 Blood hematocrit (volume fraction) 38 % 35-52 Automated erythrocyte mean corpuscular volume 87 [foz_us] 80-99 Automated erythrocyte mean corpuscular hemoglobin (mass per erythrocyte) 29 pg 25-34 Automated erythrocyte mean corpuscular hemoglobin concentration measurement ( mass/volume) 33 g/dL 32-36 Automated erythrocyte distribution width ratio 14.1 % 10.0-14.5 Automated blood platelet count (count/volume) 303 10*3/uL 130-400 Automated blood platelet mean volume measurement 9.7 [foz_us] 7.4-10.4 Automated blood neutrophils/100 leukocytes 37 % 42-75 Automated blood lymphocytes/100 leukocytes 49 % 12-44 Blood monocytes/100 leukocytes 6 % NRG Automated blood eosinophils/100 leukocytes 2 % 0-10 Automated blood basophils/100 leukocytes 1 % 0-10 Blood neutrophils automated count (number/volume) 4.2 10*3 1.8-7.8 Blood lymphocytes automated count (number/volume) 5.6 10*3 1.0-4.0 Blood monocytes automated count (number/volume) 1.3 10*3 0.0-1.0 Automated eosinophil count 0.2 10*3/uL 0.0-0.3 Automated blood basophil count (count/volume) 0.1 10*3/uL 0.0-0.1 Manual blood segmented neutrophils/100 leukocytes 46 % NRG Blood band neutrophils/100 leukocytes 0 % NRG Manual blood lymphocytes/100 leukocytes 42 % NRG Manual eosinophils/100 leukocytes in nose 4 % NRG Manual blood basophils/100 leukocytes 2 % NRG Blood erythrocyte morphology finding identification NORMAL NRG Automated reticulocyte percentage - 08/26/16 09:15 Blood reticulocytes count (number/volume) 65 10*9/L 24- 90 Blood reticulocytes/100 erythrocytes 1.47 % 0.50-2.40 Encounters ACCT No. Visit Date/Time Discharge Status Pt. Type Provider Facility Loc./Unit Complaint [id number] 01/28/2018 00:09:00 01/28/2018 23:59:59 CLS Preadmit YOSI BRINK [facility] ONC [id number] 10/29/2017 13:29:00 01/27/2018 00:01:00 DIS Outpatient YOSI BRINK [facility] ONC [id number] 01/21/2018 14:53:00 01/21/2018 23:59:59 CLS Preadmit LEONELA JAMES [facility] CARD CAD,CKD, CAROTID ARTERY STENOSIS,DYSPNEA [id number] 08/20/2017 15:41:00 08/20/2017 23:59:59 CLS Outpatient CLIVE NEVAREZ MD [facility] RAD COUGH [id number] 04/28/2017 12:52:00 07/27/2017 00:01:00 DIS Outpatient YOSI BRINK [facility] ONC [id number] 05/27/2017 14:46:00 05/27/2017 23:59:59 CLS Outpatient JIM SHER [facility] RAD Z12.31 SCREENING MAMMO [id number] 04/28/2017 13:23:00 04/28/2017 23:59:59 CLS Outpatient LEONELA JAMES [facility] LAB [id number] 04/06/2017 12:29:00 04/06/2017 23:59:59 CLS Outpatient CLIVE NEVAREZ MD [facility] RAD B HAND/THUMB PAIN [id number] 10/27/2016 12:44:00 01/25/2017 00:01:00 DIS Outpatient YOSI BRINK [facility] ONC [id number] 08/26/2016 08:50:00 08/26/2016 23:59:59 CLS Outpatient CLIVE NEVAREZ MD [facility] LAB ABNORMAL WBC [id number] 08/12/2016 09:10:00 08/12/2016 23:59:59 CLS Outpatient RANDY ALVARADO MD [facility] RAD K57.90 [id number] 04/29/2016 10:17:00 07/28/2016 00:01:00 DIS Outpatient YOSI BRINK [facility] ONC [id number] 05/26/2016 11:03:00 05/26/2016 23:59:59 CLS Outpatient JIM SHERP [facility] RAD BREAST CA [id number] 05/05/2016 13:15:00 05/06/2016 14:10:00 DIS Inpatient LEONARDA VICK, MAYTE Malave [facility] 4TH FEVER, POSSIBLE UTI, HX OF LEUKEMIA [id number] 04/10/2016 13:36:00 04/10/2016 23:59:59 CLS Outpatient LLUVIA GARDUNO MD [facility] CARD CAD [id number] 10/29/2015 11:43:00 10/29/2015 23:59:59 CLS Outpatient YOSI BRINK [facility] ONC [id number] 10/15/2015 15:00:00 10/15/2015 23:59:59 CLS Preadmit MINNIE SELF DO [facility] PULM DYSPNEA,COPD [id number] 10/09/2015 10:00:00 10/14/2015 00:01:00 DIS Outpatient MINNIE SELF DO [facility] PULM DYSPNEA,COPD [id number] 05/24/2015 10:43:00 05/24/2015 23:59:59 CLS Outpatient JIM SHER [facility] RAD ROUTINE MAMMOGRAM SCREENING [id number] 05/20/2015 19:40:00 05/21/2015 06:49:00 DIS Outpatient MINNIE SELF DO [facility] SLEEP SNORING,HTN,EXCESSIVE DAYTIME SLEEPINESS [id number] 05/01/2015 09:03:00 05/01/2015 23:59:59 CLS Outpatient JIM SHER [facility] ONC [id number] 04/25/2015 13:43:00 04/25/2015 23:59:59 CLS Outpatient MINNIE SELF DO [facility] RT CAD,HTN,LBBB,MEMORY DEFICIT,OBESITY [id number] 04/19/2015 16:32:00 04/19/2015 23:59:59 CLS Outpatient MINNIE SELF DO [facility] RAD CAD,HTN,LBBB,MEMORY DEFICIT,OBESITY [id number] 03/28/2015 08:59:00 03/28/2015 23:59:59 CLS Outpatient LLUVIA GARDUNO MD [facility] CARD CAD,MATHIEU,HLP,HTN [id number] 03/23/2015 13:52:00 03/23/2015 23:59:59 CLS Outpatient LLUVIA GARDUNO MD [facility] CARD CAD,MATHIEU,HLP,HTN [id number] 11/19/2014 14:32:00 11/19/2014 23:59:59 CLS Outpatient JUANCARLOS SON ASSISTANT THERAPY AIDE [facility] QUICK [id number] 09/20/2014 08:38:00 09/20/2014 23:59:59 CLS Outpatient YOSI BRINK [facility] ONC [id number] 03/24/2014 11:13:00 03/24/2014 23:59:59 CLS Outpatient JIM SHER [facility] RAD SCREENING [id number] 03/22/2014 09:04:00 03/22/2014 23:59:59 CLS Outpatient JIM SHER ASSISTANT THERAPY AIDE [facility] ONC [id number] 01/16/2014 06:55:00 01/17/2014 15:30:00 DIS Inpatient TAVO VALLE MD [facility] ICU RIGHT CAROTID STENOSIS [id number] 01/12/2014 12:03:00 01/12/2014 23:59:59 CLS Outpatient TAVO VALLE MD [facility] PREOP RIGHT CAROTID STENOSIS [id number] 12/05/2013 07:44:00 12/05/2013 23:59:59 CLS Outpatient TAVO VALLE MD [facility] RAD CAROTID STENOSIS [id number] 10/04/2013 07:52:00 10/20/2013 14:29:00 DIS Outpatient YOSI BRINK [facility] REHAB LYMPHEDEMA OF LEFT ARM HX OF BREAST CANCER [id number] 10/10/2013 14:35:00 10/10/2013 23:59:59 CLS Outpatient JIM SHER [facility] ONC [id number] 09/14/2013 10:03:00 09/14/2013 23:59:59 CLS Outpatient YOSI BRINK [facility] ONC [id number] 07/27/2013 07:30:00 07/27/2013 23:59:59 CLS Outpatient LLUVIA GARDUNO MD [facility] RT CAD,MATHIEU,HTN [id number] 07/18/2013 07:43:00 07/18/2013 23:59:59 CLS Outpatient LLUVIA GARDUNO MD [facility] RAD CAD STENOSIS CP [id number] 06/23/2013 10:36:00 06/23/2013 23:59:59 CLS Outpatient LLUVIA GARDUNO MD [facility] CARD CAD STENOSIS CP [id number] 03/25/2013 09:45:00 06/23/2013 00:01:00 DIS Outpatient YOSI BRINK [facility] ONC [id number] 06/16/2013 06:31:00 06/16/2013 10:07:00 DIS Outpatient TAVO VALLE MD [facility] SDC GERD; HX POLYPS [id number] 06/15/2013 07:32:00 06/15/2013 23:59:59 CLS Outpatient TAVO VALLE MD [facility] PREOP GERD; HX POLYPS [id number] 05/02/2013 11:30:00 05/02/2013 23:59:59 CLS Outpatient TAVO VALLE MD [facility] LABNPT RT (R) RVT, ABSCESS MID CHEST [id number] 03/17/2013 09:15:00 03/17/2013 23:59:59 CLS Outpatient CLIVE NEVAREZ MD [facility] RAD SCREENING [id number] 03/15/2013 09:28:00 03/15/2013 23:59:59 CLS Outpatient TAVO VALLE MD [facility] LAB [id number] 03/15/2013 09:24:00 03/15/2013 23:59:59 CLS Outpatient LLUVIA GARDUNO MD [facility] LAB [id number] 03/15/2013 09:19:00 03/15/2013 23:59:59 CLS Outpatient JIM SHER ASSISTANT THERAPY AIDE [facility] ONC [id number] 09/24/2012 06:00:00 09/25/2012 12:20:00 DIS Inpatient TAVO VALLE MD [facility] ICU RIGHT CAROTID STENOSIS [id number] 09/22/2012 07:31:00 09/22/2012 23:59:59 CLS Outpatient TAVO VALLE MD [facility] PREOP RIGHT CAROTID STENOSIS [id number] 09/06/2012 09:42:00 09/06/2012 23:59:59 CLS Outpatient KEENAYOSI [facility] ONC [id number] 07/05/2014 10:26:00 Document Registration [id number] 04/17/2014 12:16:00 Document Registration [id number] 08/30/2012 09:45:00 Document Registration [id number] 08/30/2012 09:39:00 Document Registration [id number] 06/09/2012 09:26:00 Document Registration [id number] 03/17/2012 12:21:00 Document Registration [id number] 03/03/2012 11:22:00 Document Registration [id number] 03/03/2012 10:22:00 Document Registration [id number] 03/03/2012 10:22:00 Document Registration [id number] 03/03/2012 09:58:00 Document Registration [id number] 11/04/2011 08:57:00 Document Registration [id number] 09/03/2011 05:38:00 Document Registration [id number] 08/26/2011 09:43:00 Document Registration [id number] 07/16/2011 10:25:00 Document Registration [id number] 04/14/2011 11:03:00 Document Registration [id number] 02/25/2011 08:51:00 Document Registration [id number] 12/05/2010 09:18:00 Document Registration
[2018-02-10] MEDS ORDERED: HEParin (CATH LAB) 2,000 ML IV ONE (07:12)
[2018-02-10] MEDS ORDERED: LIDOCAINE 1% INJ 20 ML 20 ML VIAL ONE (07:12)
[2018-02-10] MEDS ORDERED: NS IV 1000 ML 1,000 ML ONE ×2 (07:12→08:19)
[2018-02-10] MEDS: NS IV 1000 ML 1,000 ML IV SCH ×4 (07:32→14:01)
[2018-02-10 07:41] LABS: HEMOGLOBIN 12.1 G/DL (11.5-16.0); MEAN PLATELET VOLUME 9.4 FL (7.4-10.4); RED BLOOD COUNT 4.27 10^6/uL (4.35-5.85); RED CELL DISTRIBUTION WIDTH 14.2 % (10.0-14.5)
--- NOTE | 2018-02-10 07:41 | Diagnostic Imaging Report ---
INDICATION: Preop coronary disease. Comparison with 08/20/2017. FINDINGS: Portable chest. Lungs are well aerated and clear. The heart is mildly enlarged. There is no evidence of pulmonary edema. No hilar adenopathy. No pneumothorax or pleural effusions. No bony lesions. IMPRESSION: Cardiomegaly with no acute changes. Dictated by: Dictated on workstation # [id number]
[2018-02-10 07:44] LABS: WHITE BLOOD COUNT 31.2 10^3/uL (4.3-11.0)
[2018-02-10] MEDS ORDERED: GUAI400T44 PO (07:51)
[2018-02-10] MEDS ORDERED: OMEG1CAP24 PO (07:51)
[2018-02-10] MEDS ORDERED: ASCO10006 PO (07:51)
[2018-02-10] MEDS ORDERED: COLE1TAB PO (07:51)
[2018-02-10] MEDS ORDERED: LOPE2TAB34 PO (07:51)
[2018-02-10] MEDS ORDERED: CETI-343 PO (07:51)
[2018-02-10] MEDS ORDERED: MAGN250T13 PO (07:51)
[2018-02-10 08:02] LABS: BILIRUBIN,TOTAL 0.8 MG/DL (0.1-1.0); CALCIUM 9.6 MG/DL (8.5-10.1); CREATININE SERUM 1.61 MG/DL (0.60-1.30); POTASSIUM 3.9 MMOL/L (3.6-5.0); TOTAL PROTEIN 9.5 GM/DL (6.4-8.2)
[2018-02-10 08:14] LABS: INR 0.9 (0.8-1.4); PROTHROMBIN TIME PATIENT 12.6 SEC (12.2-14.7)
[2018-02-10] MEDS ORDERED: FLU QUADRIvalent (5+ YOA) 2018-2019 (AFLURIA) 0.5 ML IM ONE (08:15)
[2018-02-10] MEDS ORDERED: MIDAZOLAM 5 MG/5 ML (VERSED) VIAL ONE (08:18)
[2018-02-10] MEDS ORDERED: fentaNYL INJECTION 100 MCG/2 ML AMP ONE (08:18)
[2018-02-10] MEDS ORDERED: HEParin 1000 UNIT/ML (10ML VIAL) FOR BOLUS ONE (08:58)
[2018-02-10] MEDS ORDERED: NITRO DRIP 25000 MCG/D5W 250 ML IV ONE (09:00)
[2018-02-10] MEDS ORDERED: TICAGRELOR 90 MG TABLET (BRILINTA) PO ONE (09:14)
[2018-02-10] MEDS ORDERED: ASPIRIN 325 MG (5 GR) TABLET ONE (09:14)
--- NOTE | 2018-02-10 09:20 | Cardiac Procedure Note-CS/ASA ---
Pre-Procedure Note Pre-Op Procedure Note H&P Reviewed The H&P was reviewed, patient examined and no changes noted. Date H&P Reviewed: Feb 10, 2018 Time H&P Reviewed: 08:00 Conscious Sedation Pre-Proced Time 08:00 ASA Score 3 For ASA 3 and 4: Consider anesthesia and medical clearance. Also, for patients with a history of failed moderate sedation consider anesthesia. Airway Lungs Heart ASA score ASA 1: a normal healthy patient ASA 2: a patient with a mild systemic disease (mid diabetes, controlled hypertension, obesity x ASA 3: a patient with a severe systemic disease that limits activity (angina , COPD, prior Myocardial infarction) ASA 4: a patient with an incapacitating disease that is a constant threat to life (CHF, renal failure) ASA 5: a moribund patient not expected to survive 24 hrs. (ruptured aneurysm) ASA 6: a declared brain patient whose organs are being harvested. For emergent operations, add the letter E after the classification Mallampati Classification Grade 3 Sedation Plan Analgesia, Amnesia, Plan communicated to team members, Discussed options with patient/fam, Discussed risks with patient/fam The patient is an appropriate candidate to undergo the planned procedure, sedation, and anesthesia. The patient immediately re-assessed prior to indication. LLUVIA GARDUNO MD Feb 10, 2018 9:20 am
--- NOTE | 2018-02-10 09:28 | Cardiac Cath Report ---
Cardiac Cath Report Physician (s)/Car Whacker (s) Physician LLUVIA GARDUNO MD Pre-Procedure Diagnosis Pre-Procedure Diagnosis: Coronary artery disease Post-Procedure Note Procedure Start Date: Feb 10, 2018 Name of Procedure: Left heart catheterization Stent to LAD Findings/Procedure Note PROCEDURE NOTE: After explaining the procedure to the patient, all pros and cons were explained , all questions were answered. The patient signed the consent and then she was placed on the cardiac catheterization laboratory. Groin was prepped SL fashion local anesthesia was used. Sheath placed in the right femoral artery. Keagan right and left catheter were used to access the coronary system. Keagan right catheter was prolapse of the left ventricular cavity, pressure was measured, pullback LV to aorta was then. Patient had severe stenosis at the mid LAD at a trifurcation point. Had ischemia in the anterior wall on her stress test. Decided to proceed with pertains intervention. 6000 units of heparin were given. FL guide was used, BMW wire was advanced to the LAD, predilatation with 3.012 mm balloon and then I proceeded with deployment of Xience Karis 3.015 millimeter stent expanded to 3.1 mm with excellent results no residual stenosis was noted. At the end of the procedure the sheath was removed. Closure device was used FINDINGS: Hemodynamics LV 115/13, end-diastolic pressure of 13 Aorta 112/47 mean of 71 ANATOMY: Left Main is free of obstructive disease Left Anterior Descending is calcified artery with severe stenosis at the midportion at a trifurcation point, successful alone angioplasty then stent deployment using Xience Karis 3.015 mm expanded to 3.1 mm with excellent results, no residual stenosis, the distal LAD has mild aneurysmal dilated patient with mild diffuse calcification Left Circumflex is large dominant artery with mild disease nonobstructive disease Right Coronory Artery is small nondominant artery LV Gram was not done, pressure was measured CONCLUSION: 1. Calcified LAD with severe stenosis at the midportion successful balloon angioplasty then deployment of Karis stent 3.015 mm expanded to 3.1 mm with excellent results. 2. Calcified LAD with mild aneurysmal dilatation distally, small vessel disease nonobstructive disease 3. Dominant circumflex artery with mild disease nonobstructive disease 4. Nondominant small right coronary artery with no obstructive disease DISCUSSION AND RECOMMENDATION: Started on aspirin and Brilinta, continue to maximize medical therapy Anesthesia Type: Conscious Sedation Estimated blood loss (mL): 10 nl Contrast Amount: 35 ml Total Radiation Dose: 479 mGy Post-Procedure Diagnosis Post-operative diagnosis: Coronary artery disease Hypertension Hyperlipidemia Breast cancer LLUVIA GARDUNO MD Feb 10, 2018 9:28 am
[2018-02-10] MEDS ORDERED: PATIENT MAY USE OWN MEDS, ALL PO SCH (09:30)
[2018-02-10] MEDS ORDERED: FUROSEMIDE 40 MG/4 ML INJ (LASIX) IVP NR (13:45)
[2018-02-10] MEDS: FATTY ACIDS PO SCH (20:07)
[2018-02-10] MEDS: OMEGA PO SCH (20:07)
[2018-02-10] MEDS: FISH OIL PO SCH (20:07)
[2018-02-10] MEDS: TICAGRELOR 90 MG TABLET (BRILINTA) PO SCH (20:07)
[2018-02-10] MEDS ORDERED: DONEPEZIL 10 MG (ARICEPT) TAB PO SCH (21:00)
[2018-02-11] VITALS: BP 146/72
[2018-02-11 03:17] LABS: HEMOGLOBIN 11.4 G/DL (11.5-16.0); MEAN PLATELET VOLUME 9.4 FL (7.4-10.4); RED BLOOD COUNT 3.88 10^6/uL (4.35-5.85); WHITE BLOOD COUNT 27.1 10^3/uL (4.3-11.0)
[2018-02-11 03:35] LABS: CALCIUM 8.9 MG/DL (8.5-10.1); CREATININE SERUM 0.91 MG/DL (0.60-1.30); POTASSIUM 3.3 MMOL/L (3.6-5.0)
[2018-02-11 04:00] VITALS: BP 127/47
[2018-02-11] MEDS: NS IV 1000 ML 1,000 ML IV SCH (05:39)
[2018-02-11] MEDS ORDERED: KCL 20 MEQ TAB (K-DUR) PO ONE (06:15)
--- NOTE | 2018-02-11 06:37 | Cardiology Progress Note ---
Subjective Date Seen by Provider: Feb 11, 2018 Time Seen by Provider: 06:36 Subjective/Events-last exam Patient is laying down in bed, feeling better, denied any chest pain, breathing is better. Groin is healing well. Review of Systems General: No Chills, No Night Sweats, No Fatigue, No Malaise, No Appetite, No Other HEENT: No Head Aches, No Visual Changes, No Eye Pain, No Ear Pain, No Dysphasia , No Sinus Congestion, No Post Nasal Drip, No Sore Throat, No Other Pulmonary: No Dyspnea, No Cough, No Pleuritic Chest Pain, No Other Cardiovascular: No: Chest Pain, Palpitations, Orthopnea, Paroxysmal Noc. Dyspnea, Edema, Lt Headedness, Other Objective-Cardiology Exam Last Set of Vital Signs Vital Signs 02/10/18 02/10/18 02/11/18 16:00 16:30 04:00 Temp 97.7 Pulse 56 Resp 20 B/P (MAP) 127/47 (73) Pulse Ox 92 O2 Delivery Room Air O2 Flow Rate 3.00 Capillary Refill : Less Than 3 Seconds I&O Intake and Output 02/11/18 00:00 Intake Total 1720 ml Output Total 3750 ml Balance -2030 ml Intake Oral 720 ml IV Total 1000 ml Output Urine Total 3750 ml General: Alert, Oriented X3, Cooperative HEENT: Atraumatic, PERRLA Neck: Supple, No JVD, No Thyromegaly Lungs: Clear to Auscultation, Normal Air Movement Heart: Regular Rate, Normal S1, Normal S2, No Murmurs Abdomen: Normal Bowel Sounds, Soft, No Tenderness, No Hepatosplenomegaly, No Masses Extremities: No Clubbing, No Cyanosis, No Edema, Normal Pulses, No Tenderness/ Swelling Skin: No Rashes, No Breakdown, No Significant Lesion Neuro: Normal Gait, Normal Speech, Strength at 5/5 X4 Ext, Normal Tone, Sensation Intact Psych/Mental Status: Mental Status NL, Mood NL Results Lab Laboratory Tests 02/10/18 07:30 02/11/18 03:11 A/P-Cardiology Admission Diagnosis Coronary artery disease Hypertension Hyperlipidemia Hypokalemia Assessment/Plan Coronary artery disease status post stent to the LAD, good results, continue on aspirin and Brilinta Hypertension, continue current medication monitor next Hyperlipidemia, continue to monitor Hypokalemia, replace Chronic renal insufficiency. Better at this time. LAUREEN,BASHAR J MD Feb 11, 2018 06:37
[2018-02-11] MEDS ORDERED: ASPI-983 PO (06:39)
[2018-02-11] MEDS ORDERED: TICA90TA PO (06:39)
--- NOTE | 2018-02-11 06:39 | Discharge Inst-Post CATH ---
Discharge Inst-CATH Post Cardiac Cath D/C Inst Follow Up/Plan Appointment with Dr. Hollins's office in one to 2 weeks CARDIAC CATH DISCHARGE INSTRUCTIONS *Hold Metformin for 48 hours post heart cath. ACTIVITY * Go Home directly and rest. * Limit activity of the leg (or wrist if it was used) for 7 days including aerobics, swimming, jogging, bicycling, etc. * Restrict stair-climbing for 7 days if possible, if not, climb up with your non -cath leg, then bring together on the same step. * Avoid lifting, pushing, pulling or excessive movement of the affected extremity for 7 days. * Customary sexual activity may be resumed after 2 days-use caution not to use a position that strains or causes pain to the affected extremity. * No driving for 24 hours. * NO SMOKING. * Avoid straining for bowel movements for 7 days. * Gentle walking on level ground is allowed. * Returning to work will depend on the type of procedure and the results. Your doctor will discuss this with you. CALL YOUR DOCTOR FOR ANY OF THE FOLLOWING: *If bleeding from the puncture site occurs- Apply gentle pressure to site with clean cloth and call your doctor or EMS. * If a knot or lump forms under the skin, increases in size, or causes pain. * If bruising appears to be worsening or moving further down your leg instead of disappearing. * Temperature above 101 F. CARE OF YOUR GROIN INCISION; * Bruising or purple discoloration of the skin near the puncture site is common. * You may shower only, no bathtub bathing for 5 days. Be careful to avoid slipping as your leg may feel stiff. * If a closure device was used on your femoral artery, please see the attached guide regarding care of the device and your leg. * Leave the dressing on, until removed by office staff. CARE OF YOUR WRIST INCISION; * Bruising or purple discoloration of the skin near the puncture site is common. * You may shower. * DO NOT submerge wrist. * Leave dressing on, until removed by office staff.. LLUVIA HOLLINS MD Feb 11, 2018 06:39
[2018-02-11] MEDS ORDERED: OMEPRAZOLE 40 MG PO SCH (07:00)
[2018-02-11 08:00] VITALS: BP 137/66
[2018-02-11 08:11] VITALS: BP 137/66
[2018-02-11] MEDS: TICAGRELOR 90 MG TABLET (BRILINTA) PO SCH (08:18)
[2018-02-11] MEDS: OMEGA PO SCH (08:23)
[2018-02-11] MEDS: FISH OIL PO SCH (08:23)
[2018-02-11] MEDS: FATTY ACIDS PO SCH (08:23)
[2018-02-11] MEDS ORDERED: GUAIFENESIN 400 MG PO SCH (09:00)
[2018-02-11] MEDS ORDERED: LOSARTAN HCTZ PO SCH (09:00)
[2018-02-11] MEDS ORDERED: ASPIRIN E.C. 81 MG (ECOTRIN) TAB PO SCH (09:00)
[2018-02-11] MEDS ORDERED: ATORVASTATIN 40 MG (LIPITOR) TABLET PO SCH (09:00)
[2018-02-11] MEDS ORDERED: amLODIPine 10 MG (NORVASC) TAB PO SCH (09:00)
[2018-02-11] MEDS ORDERED: ATENOLOL 25 MG (TENORMIN) TAB PO SCH (09:00)
[2018-02-11] MEDS ORDERED: FLU QUADRIvalent (5+ YOA) 2018-2019 (AFLURIA) 0.5 ML IM ONE (09:29)
== END 2018-02-11 09:40 | disposition home or self-care (01) ==
LOC: CATH 07:05 → ICU 09:40 → CATH 02-11 09:40
PROVIDERS: ATTEND Internal Medicine Cardiovascular Disease
DX: I25.10 Atherosclerotic heart disease of native coronary artery without angina pectoris (principal); I12.9 Hypertensive chronic kidney disease with stage 1 through stage 4 chronic kidney disease, or unspecified chronic kidney disease; N18.9 Chronic kidney disease, unspecified; E87.6 Hypokalemia; E78.5 Hyperlipidemia, unspecified; C91.10 Chronic lymphocytic leukemia of B-cell type not having achieved remission; E78.00 Pure hypercholesterolemia, unspecified; I65.29 Occlusion and stenosis of unspecified carotid artery; R06.02 Shortness of breath; I44.7 Left bundle-branch block, unspecified; G47.33 Obstructive sleep apnea (adult) (pediatric); K21.9 Gastro-esophageal reflux disease without esophagitis; Z85.3 Personal history of malignant neoplasm of breast; Z79.899 Other long term (current) drug therapy; Z87.891 Personal history of nicotine dependence
CPT/HCPCS: 36415; 71045; 80048; 80053; 80061; 85027; 85610; 85730; 87081; 90686; 93005; 93458

== ENCOUNTER → 2018-04-27 | Outpatient (CLI) | payer MEDICARE ==
[~2018-04-27] MED LIST changes: +ASCO10006 PO; +ASPI-983 PO; +CETI10TA4 PO; +COLE1TAB PO; +GADOBUTROL 10 MMOL/10 ML (GADAVIST) VIAL IV ONE; +GUAI400T44 PO; +LOPE2TAB34 PO; +MAGN250T13 PO; +OMEG1CAP24 PO; +TICA90TA PO
--- NOTE | 2018-04-27 10:32 | Diagnostic Imaging Report ---
PROCEDURE: MR imaging of the brain with and without contrast. TECHNIQUE: Multiplanar, multisequence MR imaging of the brain was performed with and without contrast. INDICATION: Chronic head pain and dizziness, multiple falls, history of breast cancer, remote. COMPARISON: No priors for comparison. FINDINGS: There are no foci of abnormal diffusion restriction. There were no findings of an acute or subacute ischemic infarct. There is no evidence for intracranial hemorrhage and no mass or mass effect is apparent. With the administration of intravenous contrast, there was no abnormal or suspicious parenchymal or meningeal enhancement. There were no findings suggestive of the MRI evidence for intracranial involvement by metastatic disease. The cerebral cortical volume is unremarkable and there is no hydrocephalus. There is however a moderate severity of patchy subcortical and periventricular white matter disease, T2 hyperintense, this also involves the ed. While nonspecific, the appearance is suggestive of the sequelae of chronic small vessel disease. No enhancing white matter lesions. No mass effects are found. The basilar cisterns are patent. The sulci are non effaced. IMPRESSION: 1. No evidence for infarct, hemorrhage, or metastatic disease. 2. Nonspecific white matter disease favors chronic small vessel sequelae. No acute-appearing abnormality identified. Dictated by: Dictated on workstation # [id number]
== END ==
LOC: RAD 08:31
PROVIDERS: ATTEND Nurse Practitioner Adult Health
DX: R51 Headache (principal); R90.82 White matter disease, unspecified; R42 Dizziness and giddiness; R29.6 Repeated falls; Z85.3 Personal history of malignant neoplasm of breast
CPT/HCPCS: 70553

== ENCOUNTER → 2018-05-24 | Outpatient (CLI) | payer MEDICARE ==
[~2018-05-24] MED LIST changes: -GADOBUTROL 10 MMOL/10 ML (GADAVIST) VIAL IV ONE
--- NOTE | 2018-05-24 09:49 | Diagnostic Imaging Report ---
PROCEDURE: CT chest without contrast. TECHNIQUE: Multiple contiguous axial images were obtained through the chest without the use of intravenous contrast. INDICATION: Chronic bronchitis, COPD and shortness of air on exertion. Comparison is made with prior chest CT from 08/12/2016. Postsurgical changes of left mastectomy are seen. No definite axillary lymphadenopathy is identified. Mediastinal and hilar evaluation is limited due to absence of intravenous contrast. No gross abnormality is identified. There are coronary arterial calcifications present. Trace pericardial fluid is seen. No pleural effusion is identified. Areas of scarring or subsegmental atelectasis in both lower lobes as well as right middle lobe and lingula are noted and similar to prior CT. No parenchymal mass or nodule is seen. No infiltrates are detected. Upper abdomen is unremarkable. IMPRESSION: Overall stable CT of the chest when compared with exam from 08/12/2016. No acute feature is detected. Dictated by: Dictated on workstation # [id number]
== END ==
LOC: RAD 09:28
PROVIDERS: ATTEND Nurse Practitioner Family
DX: J44.9 Chronic obstructive pulmonary disease, unspecified (principal); Z87.891 Personal history of nicotine dependence
CPT/HCPCS: 71250

== ENCOUNTER → 2018-06-01 | Outpatient (CLI) | payer MEDICARE ==
--- NOTE | 2018-06-01 13:25 | Diagnostic Imaging Report ---
INDICATION: Routine screening. COMPARISON: 05/27/2017 and 05/26/2016. TECHNIQUE: 2D and 3D unilateral right screening mammography was performed with CAD. FINDINGS: Scattered fibroglandular densities are identified in the right breast. Numerous benign calcifications are scattered throughout the right breast. No dominant mass or malignant appearing microcalcifications are seen. The right axilla is unremarkable. IMPRESSION: No mammographic features suspicious for malignancy are identified. ACR BI-RADS Category 2: Benign findings. Result letter will be mailed to the patient. Note: At least 10% of breast cancer is not imaged by mammography. Dictated by: Dictated on workstation # [id number]
== END ==
LOC: RAD 09:56
PROVIDERS: ATTEND Nurse Practitioner Adult Health
DX: Z12.31 Encounter for screening mammogram for malignant neoplasm of breast (principal); Z85.3 Personal history of malignant neoplasm of breast

== ENCOUNTER 2018-06-11 10:44 | Outpatient (RCR) | payer MEDICARE | END 2018-06-13 | disposition home or self-care (01) | LOC: CR 10:44 | PROVIDERS: ATTEND Internal Medicine Cardiovascular Disease | DX: Z48.812 Encounter for surgical aftercare following surgery on the circulatory system (principal); Z95.5 Presence of coronary angioplasty implant and graft | CPT/HCPCS: 93798 ==

== ENCOUNTER 2018-06-23 10:53 | Outpatient (RCR) | payer MEDICARE | END 2018-09-12 | disposition home or self-care (01) | LOC: CR 10:53 | PROVIDERS: ATTEND Internal Medicine Cardiovascular Disease | DX: Z48.812 Encounter for surgical aftercare following surgery on the circulatory system (principal); Z95.5 Presence of coronary angioplasty implant and graft | CPT/HCPCS: 93798 ==

== ENCOUNTER 2018-07-19 12:19 | Outpatient (RCR) | payer MEDICARE ==
[2018-04-26 12:32] LABS: HEMATOCRIT 35 % (35-52); HEMOGLOBIN 11.2 G/DL (11.5-16.0); MEAN CORPUSCULAR HEMOGLOBIN 28 PG (25-34); MEAN CORPUSCULAR HGB CONC 32 G/DL (32-36); MEAN CORPUSCULAR VOLUME 87 FL (80-99); MEAN PLATELET VOLUME 9.5 FL (7.4-10.4); PLATELET COUNT 299 10^3/uL (130-400); RED CELL DISTRIBUTION WIDTH 15.7 % (10.0-14.5)
[2018-04-26 12:37] LABS: WHITE BLOOD COUNT 57.7 10^3/uL (4.3-11.0)
[2018-04-26 12:38] LABS: SMEAR SCAN COMMENT YES
[2018-04-26 12:49] LABS: ALBUMIN 3.7 GM/DL (3.2-4.5); BILIRUBIN,TOTAL 0.9 MG/DL (0.1-1.0); CALCIUM 9.7 MG/DL (8.5-10.1); CREATININE SERUM 1.21 MG/DL (0.60-1.30); POTASSIUM 4.3 MMOL/L (3.6-5.0)
[2018-04-26 13:54] LABS: ANISOCYTOSIS SLIGHT; BAND NEUTROPHILS 0 %; BASOPHILS % (MANUAL) 0 %; ELLIPT/OVALOCYTES SLIGHT
[2018-04-26 14:02] LABS: ATYPICAL LYMPHOCYTES 48 %; EOSINOPHILS % (MANUAL) 0 %; LYMPHOCYTES % (MANUAL) 41 %; MONOCYTES % (MANUAL) 2 %; NEUTROPHILS % (MANUAL) 9 %
[2018-05-17 12:53] LABS: HEMATOCRIT 36 % (35-52); HEMOGLOBIN 11.3 G/DL (11.5-16.0); MEAN CORPUSCULAR HEMOGLOBIN 28 PG (25-34); MEAN CORPUSCULAR HGB CONC 32 G/DL (32-36); MEAN CORPUSCULAR VOLUME 87 FL (80-99); PLATELET COUNT 470 10^3/uL (130-400); RED CELL DISTRIBUTION WIDTH 16.4 % (10.0-14.5)
[2018-05-17 13:08] LABS: WHITE BLOOD COUNT 56.8 10^3/uL (4.3-11.0)
[2018-05-17 13:18] LABS: ALBUMIN 3.9 GM/DL (3.2-4.5); BILIRUBIN,TOTAL 0.6 MG/DL (0.1-1.0); CALCIUM 9.7 MG/DL (8.5-10.1); CREATININE SERUM 1.29 MG/DL (0.60-1.30); POTASSIUM 4.8 MMOL/L (3.6-5.0); TOTAL PROTEIN 9.7 GM/DL (6.4-8.2)
[2018-06-21 10:44] LABS: HEMATOCRIT 34 % (35-52); HEMOGLOBIN 11.2 G/DL (11.5-16.0); MEAN CORPUSCULAR HGB CONC 33 G/DL (32-36); MEAN CORPUSCULAR VOLUME 90 FL (80-99); MEAN PLATELET VOLUME 9.1 FL (7.4-10.4); PLATELET COUNT 437 10^3/uL (130-400); RED CELL DISTRIBUTION WIDTH 16.3 % (10.0-14.5)
[2018-06-21 10:49] LABS: MEAN CORPUSCULAR HEMOGLOBIN 29 PG (25-34)
[2018-06-21 11:12] LABS: ALBUMIN 3.8 GM/DL (3.2-4.5); BILIRUBIN,TOTAL 0.8 MG/DL (0.1-1.0); CALCIUM 9.2 MG/DL (8.5-10.1); CREATININE SERUM 1.11 MG/DL (0.60-1.30); POTASSIUM 4.1 MMOL/L (3.6-5.0); TOTAL PROTEIN 7.9 GM/DL (6.4-8.2)
[2018-06-21 12:13] LABS: ATYPICAL LYMPHOCYTES 80 %; LYMPHOCYTES % (MANUAL) 4 %; MONOCYTES % (MANUAL) 2 %; NEUTROPHILS % (MANUAL) 14 %
[2018-06-24 06:36] LABS: HEPATITIS C ANTIBODY C Non-Reactive (Non-Reactive)
[2018-06-29 14:49] LABS: IMMUNOFIX PATH REPORT NUMBER Complete (Complete)
[2018-07-12 10:47] LABS: HEMATOCRIT 34 % (35-52); MEAN CORPUSCULAR HEMOGLOBIN 29 PG (25-34); MEAN CORPUSCULAR HGB CONC 32 G/DL (32-36); MEAN CORPUSCULAR VOLUME 89 FL (80-99); PLATELET COUNT 350 10^3/uL (130-400); RED CELL DISTRIBUTION WIDTH 14.9 % (10.0-14.5)
[2018-07-12 10:51] LABS: WHITE BLOOD COUNT 45.9 10^3/uL (4.3-11.0)
[2018-07-12 11:28] LABS: BILIRUBIN,TOTAL 0.7 MG/DL (0.1-1.0); CALCIUM 9.6 MG/DL (8.5-10.1); CREATININE SERUM 1.35 MG/DL (0.60-1.30); POTASSIUM 3.7 MMOL/L (3.6-5.0); TOTAL PROTEIN 8.5 GM/DL (6.4-8.2)
[2018-07-12 12:16] LABS: MAGNESIUM 1.9 MG/DL (1.8-2.4); URIC ACID 6.2 MG/DL (2.6-7.2)
[~2018-07-19] VITALS: Ht 160 cm; Wt 83.0 kg
[~2018-07-19 12:19] MED LIST changes: +ACETAMINOPHEN 325 MG TAB (TYLENOL) CANCER CTR PO PRN; +DEXAMETHASONE INJECTION 10 MG in NS (IVPB) CANCER CENTER 50 ML IV SCH; +NS IV 1000 ML (CANCER CTR) IV SCH; +NS IV SCH; +OBINUTUZUMAB IV SCH; +ONDANSETRON MDV (CANCER CENTER 8 MG, DEXAMETHASONE INJECTION 10 MG in NS (IVPB) CANCER ... IV SCH; +diphenhydrAMINE 50 MG/ML INJ (CANCER CENTER) IV PRN
[2018-07-19 12:35] LABS: BASOPHILS % (AUTO) 0 % (0-10); EOSINOPHILS # (AUTO) 0.2 10^3/uL (0.0-0.3); EOSINOPHILS % (AUTO) 1 % (0-10); HEMATOCRIT 33 % (35-52); HEMOGLOBIN 10.7 G/DL (11.5-16.0); LYMPHOCYTES # (AUTO) 9.5 X 10^3 (1.0-4.0); LYMPHOCYTES % (AUTO) 65 % (12-44); MEAN CORPUSCULAR HEMOGLOBIN 29 PG (25-34); MEAN CORPUSCULAR HGB CONC 33 G/DL (32-36); MEAN CORPUSCULAR VOLUME 90 FL (80-99); MEAN PLATELET VOLUME 8.7 FL (7.4-10.4); MONOCYTES # (AUTO) 1.2 X 10^3 (0.0-1.0); MONOCYTES % (AUTO) 8 % (0-12); NEUTROPHILS # (AUTO) 3.7 X 10^3 (1.8-7.8); NEUTROPHILS % (AUTO) 25 % (42-75); PLATELET COUNT 373 10^3/uL (130-400); RED CELL DISTRIBUTION WIDTH 15.3 % (10.0-14.5); WHITE BLOOD COUNT 14.7 10^3/uL (4.3-11.0)
[2018-07-19] MEDS ORDERED: OBINUTUZUMAB 1,000 MG in NS (IVPB) CANCER CENTER 250 ML IV SCH (12:45)
[2018-07-19 12:54] LABS: CALCIUM 9.1 MG/DL (8.5-10.1); CREATININE SERUM 1.13 MG/DL (0.60-1.30); POTASSIUM 4.3 MMOL/L (3.6-5.0)
== END 2018-07-25 | disposition home or self-care (01) ==
LOC: ONC 12:19
PROVIDERS: ATTEND Internal Medicine Hematology & Oncology
DX: Z51.11 Encounter for antineoplastic chemotherapy (principal); C91.10 Chronic lymphocytic leukemia of B-cell type not having achieved remission; Z85.3 Personal history of malignant neoplasm of breast; F03.90 Unspecified dementia, unspecified severity, without behavioral disturbance, psychotic disturbance, mood disturbance, and anxiety; F41.9 Anxiety disorder, unspecified; I25.10 Atherosclerotic heart disease of native coronary artery without angina pectoris; J44.9 Chronic obstructive pulmonary disease, unspecified; I12.9 Hypertensive chronic kidney disease with stage 1 through stage 4 chronic kidney disease, or unspecified chronic kidney disease; N18.3 Chronic kidney disease, stage 3 (moderate); E78.00 Pure hypercholesterolemia, unspecified; E83.42 Hypomagnesemia; G25.81 Restless legs syndrome; Z90.12 Acquired absence of left breast and nipple; Z87.891 Personal history of nicotine dependence; Z79.899 Other long term (current) drug therapy
CPT/HCPCS: 36415; 36591; 80048; 80053; 80074; 82784; 83615; 83735; 83883; 84155; 84165; 84550; 85007; 85025; 85027; 86334; 88377; 96375; 96413; 96415; 99213

== ENCOUNTER → 2018-08-30 | Outpatient (CLI) | payer MEDICARE ==
[~2018-08-30] MED LIST changes: -ACETAMINOPHEN 325 MG TAB (TYLENOL) CANCER CTR PO PRN; -DEXAMETHASONE INJECTION 10 MG in NS (IVPB) CANCER CENTER 50 ML IV SCH; -NS IV 1000 ML (CANCER CTR) IV SCH; -NS IV SCH; -OBINUTUZUMAB IV SCH; -ONDANSETRON MDV (CANCER CENTER 8 MG, DEXAMETHASONE INJECTION 10 MG in NS (IVPB) CANCER ... IV SCH; -diphenhydrAMINE 50 MG/ML INJ (CANCER CENTER) IV PRN
== END ==
LOC: LABNPT 15:23
PROVIDERS: ATTEND Internal Medicine
DX: I25.10 Atherosclerotic heart disease of native coronary artery without angina pectoris (principal); I12.9 Hypertensive chronic kidney disease with stage 1 through stage 4 chronic kidney disease, or unspecified chronic kidney disease; N18.9 Chronic kidney disease, unspecified; E78.5 Hyperlipidemia, unspecified
CPT/HCPCS: 80061; 84443

== ENCOUNTER 2018-10-18 13:09 | Outpatient (RCR) | payer MEDICARE ==
[2018-07-26 11:49] LABS: BASOPHILS # (AUTO) 0.1 10^3/uL (0.0-0.1); BASOPHILS % (AUTO) 0 % (0-10); EOSINOPHILS # (AUTO) 0.2 10^3/uL (0.0-0.3); EOSINOPHILS % (AUTO) 2 % (0-10); HEMATOCRIT 32 % (35-52); HEMOGLOBIN 10.5 G/DL (11.5-16.0); LYMPHOCYTES # (AUTO) 6.8 X 10^3 (1.0-4.0); LYMPHOCYTES % (AUTO) 60 % (12-44); MEAN CORPUSCULAR HEMOGLOBIN 30 PG (25-34); MEAN CORPUSCULAR HGB CONC 32 G/DL (32-36); MEAN CORPUSCULAR VOLUME 92 FL (80-99); MEAN PLATELET VOLUME 8.9 FL (7.4-10.4); MONOCYTES % (AUTO) 9 % (0-12); NEUTROPHILS # (AUTO) 3.3 X 10^3 (1.8-7.8); NEUTROPHILS % (AUTO) 29 % (42-75); PLATELET COUNT 342 10^3/uL (130-400); RED CELL DISTRIBUTION WIDTH 15.1 % (10.0-14.5); WHITE BLOOD COUNT 11.3 10^3/uL (4.3-11.0)
[2018-07-26 12:05] LABS: CALCIUM 9.7 MG/DL (8.5-10.1); CREATININE SERUM 1.42 MG/DL (0.60-1.30); POTASSIUM 4.2 MMOL/L (3.6-5.0)
[2018-08-02 13:31] LABS: BASOPHILS # (AUTO) 0.1 10^3/uL (0.0-0.1); BASOPHILS % (AUTO) 1 % (0-10); EOSINOPHILS # (AUTO) 0.2 10^3/uL (0.0-0.3); EOSINOPHILS % (AUTO) 2 % (0-10); HEMATOCRIT 36 % (35-52); HEMOGLOBIN 11.6 G/DL (11.5-16.0); LYMPHOCYTES # (AUTO) 6.8 X 10^3 (1.0-4.0); LYMPHOCYTES % (AUTO) 66 % (12-44); MEAN CORPUSCULAR HEMOGLOBIN 30 PG (25-34); MEAN CORPUSCULAR HGB CONC 32 G/DL (32-36); MEAN CORPUSCULAR VOLUME 92 FL (80-99); MEAN PLATELET VOLUME 8.9 FL (7.4-10.4); MONOCYTES # (AUTO) 0.8 X 10^3 (0.0-1.0); MONOCYTES % (AUTO) 7 % (0-12); NEUTROPHILS # (AUTO) 2.4 X 10^3 (1.8-7.8); NEUTROPHILS % (AUTO) 24 % (42-75); PLATELET COUNT 353 10^3/uL (130-400); RED CELL DISTRIBUTION WIDTH 14.6 % (10.0-14.5); WHITE BLOOD COUNT 10.2 10^3/uL (4.3-11.0)
[2018-08-02 13:59] LABS: CALCIUM 9.7 MG/DL (8.5-10.1); CREATININE SERUM 1.5 MG/DL (0.60-1.30); POTASSIUM 4.4 MMOL/L (3.6-5.0)
[2018-08-09 11:18] LABS: BASOPHILS # (AUTO) 0.1 10^3/uL (0.0-0.1); BASOPHILS % (AUTO) 1 % (0-10); EOSINOPHILS # (AUTO) 0.2 10^3/uL (0.0-0.3); EOSINOPHILS % (AUTO) 2 % (0-10); HEMATOCRIT 35 % (35-52); HEMOGLOBIN 11.5 G/DL (11.5-16.0); LYMPHOCYTES # (AUTO) 6.6 X 10^3 (1.0-4.0); LYMPHOCYTES % (AUTO) 63 % (12-44); MEAN CORPUSCULAR HEMOGLOBIN 30 PG (25-34); MEAN CORPUSCULAR HGB CONC 33 G/DL (32-36); MEAN CORPUSCULAR VOLUME 91 FL (80-99); MEAN PLATELET VOLUME 8.9 FL (7.4-10.4); MONOCYTES # (AUTO) 0.9 X 10^3 (0.0-1.0); MONOCYTES % (AUTO) 9 % (0-12); NEUTROPHILS # (AUTO) 2.7 X 10^3 (1.8-7.8); NEUTROPHILS % (AUTO) 26 % (42-75); PLATELET COUNT 351 10^3/uL (130-400); RED CELL DISTRIBUTION WIDTH 14.8 % (10.0-14.5); WHITE BLOOD COUNT 10.5 10^3/uL (4.3-11.0)
[2018-08-09 11:59] LABS: BILIRUBIN,TOTAL 0.6 MG/DL (0.1-1.0); CALCIUM 9.9 MG/DL (8.5-10.1); CREATININE SERUM 1.53 MG/DL (0.60-1.30); POTASSIUM 4.3 MMOL/L (3.6-5.0); TOTAL PROTEIN 7.8 GM/DL (6.4-8.2)
[2018-08-16 14:03] LABS: BASOPHILS % (AUTO) 0 % (0-10); EOSINOPHILS # (AUTO) 0.2 10^3/uL (0.0-0.3); EOSINOPHILS % (AUTO) 1 % (0-10); HEMATOCRIT 35 % (35-52); HEMOGLOBIN 11.5 G/DL (11.5-16.0); LYMPHOCYTES # (AUTO) 6.6 X 10^3 (1.0-4.0); LYMPHOCYTES % (AUTO) 53 % (12-44); MEAN CORPUSCULAR HEMOGLOBIN 30 PG (25-34); MEAN CORPUSCULAR HGB CONC 33 G/DL (32-36); MEAN CORPUSCULAR VOLUME 92 FL (80-99); MEAN PLATELET VOLUME 9.2 FL (7.4-10.4); MONOCYTES # (AUTO) 1.6 X 10^3 (0.0-1.0); MONOCYTES % (AUTO) 13 % (0-12); NEUTROPHILS # (AUTO) 4.1 X 10^3 (1.8-7.8); NEUTROPHILS % (AUTO) 33 % (42-75); PLATELET COUNT 331 10^3/uL (130-400); RED CELL DISTRIBUTION WIDTH 14.7 % (10.0-14.5); WHITE BLOOD COUNT 12.5 10^3/uL (4.3-11.0)
[2018-08-16 14:18] LABS: CALCIUM 9.5 MG/DL (8.5-10.1); CREATININE SERUM 1.09 MG/DL (0.60-1.30)
[2018-08-23 14:32] LABS: BASOPHILS # (AUTO) 0.1 10^3/uL (0.0-0.1); BASOPHILS % (AUTO) 0 % (0-10); EOSINOPHILS # (AUTO) 0.2 10^3/uL (0.0-0.3); EOSINOPHILS % (AUTO) 2 % (0-10); HEMATOCRIT 36 % (35-52); HEMOGLOBIN 11.8 G/DL (11.5-16.0); LYMPHOCYTES # (AUTO) 7.1 X 10^3 (1.0-4.0); LYMPHOCYTES % (AUTO) 58 % (12-44); MEAN CORPUSCULAR HEMOGLOBIN 30 PG (25-34); MEAN CORPUSCULAR HGB CONC 33 G/DL (32-36); MEAN CORPUSCULAR VOLUME 92 FL (80-99); MEAN PLATELET VOLUME 9.3 FL (7.4-10.4); MONOCYTES # (AUTO) 1.6 X 10^3 (0.0-1.0); MONOCYTES % (AUTO) 13 % (0-12); NEUTROPHILS # (AUTO) 3.4 X 10^3 (1.8-7.8); NEUTROPHILS % (AUTO) 27 % (42-75); PLATELET COUNT 307 10^3/uL (130-400); RED CELL DISTRIBUTION WIDTH 14.2 % (10.0-14.5); WHITE BLOOD COUNT 12.4 10^3/uL (4.3-11.0)
[2018-08-23 14:50] LABS: CALCIUM 9.4 MG/DL (8.5-10.1); CREATININE SERUM 1.02 MG/DL (0.60-1.30); POTASSIUM 4.7 MMOL/L (3.6-5.0)
[2018-08-30 13:50] LABS: BASOPHILS % (AUTO) 0 % (0-10); EOSINOPHILS # (AUTO) 0.2 10^3/uL (0.0-0.3); EOSINOPHILS % (AUTO) 2 % (0-10); HEMATOCRIT 35 % (35-52); HEMOGLOBIN 11.4 G/DL (11.5-16.0); LYMPHOCYTES # (AUTO) 6.5 X 10^3 (1.0-4.0); LYMPHOCYTES % (AUTO) 62 % (12-44); MEAN CORPUSCULAR HGB CONC 32 G/DL (32-36); MEAN CORPUSCULAR VOLUME 92 FL (80-99); MONOCYTES # (AUTO) 1.3 X 10^3 (0.0-1.0); MONOCYTES % (AUTO) 13 % (0-12); NEUTROPHILS # (AUTO) 2.4 X 10^3 (1.8-7.8); NEUTROPHILS % (AUTO) 23 % (42-75); PLATELET COUNT 315 10^3/uL (130-400); RED CELL DISTRIBUTION WIDTH 14.4 % (10.0-14.5); WHITE BLOOD COUNT 10.4 10^3/uL (4.3-11.0)
[2018-08-30 13:51] LABS: MEAN CORPUSCULAR HEMOGLOBIN 29 PG (25-34)
[2018-08-30 14:11] LABS: CALCIUM 9.7 MG/DL (8.5-10.1); CREATININE SERUM 1.28 MG/DL (0.60-1.30); POTASSIUM 4.7 MMOL/L (3.6-5.0)
[2018-09-06 09:48] LABS: BASOPHILS # (AUTO) 0.1 10^3/uL (0.0-0.1); BASOPHILS % (AUTO) 0 % (0-10); EOSINOPHILS # (AUTO) 0.2 10^3/uL (0.0-0.3); EOSINOPHILS % (AUTO) 2 % (0-10); HEMATOCRIT 36 % (35-52); HEMOGLOBIN 11.8 G/DL (11.5-16.0); LYMPHOCYTES # (AUTO) 7.3 X 10^3 (1.0-4.0); LYMPHOCYTES % (AUTO) 64 % (12-44); MEAN CORPUSCULAR HEMOGLOBIN 29 PG (25-34); MEAN CORPUSCULAR HGB CONC 33 G/DL (32-36); MEAN CORPUSCULAR VOLUME 91 FL (80-99); MEAN PLATELET VOLUME 9.2 FL (7.4-10.4); MONOCYTES # (AUTO) 1.2 X 10^3 (0.0-1.0); MONOCYTES % (AUTO) 11 % (0-12); NEUTROPHILS # (AUTO) 2.6 X 10^3 (1.8-7.8); NEUTROPHILS % (AUTO) 23 % (42-75); PLATELET COUNT 288 10^3/uL (130-400); RED CELL DISTRIBUTION WIDTH 14.3 % (10.0-14.5); WHITE BLOOD COUNT 11.4 10^3/uL (4.3-11.0)
[2018-09-06 10:12] LABS: ALBUMIN 4.1 GM/DL (3.2-4.5); BILIRUBIN,TOTAL 0.5 MG/DL (0.1-1.0); CALCIUM 9.7 MG/DL (8.5-10.1); CREATININE SERUM 1.18 MG/DL (0.60-1.30); POTASSIUM 4.4 MMOL/L (3.6-5.0); TOTAL PROTEIN 7.4 GM/DL (6.4-8.2)
[2018-09-13 15:00] LABS: BASOPHILS % (AUTO) 0 % (0-10); EOSINOPHILS # (AUTO) 0.2 10^3/uL (0.0-0.3); EOSINOPHILS % (AUTO) 1 % (0-10); HEMATOCRIT 37 % (35-52); LYMPHOCYTES # (AUTO) 6.2 X 10^3 (1.0-4.0); LYMPHOCYTES % (AUTO) 55 % (12-44); MEAN CORPUSCULAR HEMOGLOBIN 30 PG (25-34); MEAN CORPUSCULAR HGB CONC 33 G/DL (32-36); MEAN CORPUSCULAR VOLUME 90 FL (80-99); MEAN PLATELET VOLUME 9.1 FL (7.4-10.4); MONOCYTES # (AUTO) 1.2 X 10^3 (0.0-1.0); MONOCYTES % (AUTO) 11 % (0-12); NEUTROPHILS # (AUTO) 3.6 X 10^3 (1.8-7.8); NEUTROPHILS % (AUTO) 32 % (42-75); PLATELET COUNT 264 10^3/uL (130-400); RED CELL DISTRIBUTION WIDTH 14.5 % (10.0-14.5); WHITE BLOOD COUNT 11.2 10^3/uL (4.3-11.0)
[2018-09-13 15:21] LABS: CALCIUM 9.5 MG/DL (8.5-10.1); POTASSIUM 4.9 MMOL/L (3.6-5.0)
[2018-09-20 13:25] LABS: BASOPHILS # (AUTO) 0.1 10^3/uL (0.0-0.1); BASOPHILS % (AUTO) 1 % (0-10); EOSINOPHILS # (AUTO) 0.2 10^3/uL (0.0-0.3); EOSINOPHILS % (AUTO) 2 % (0-10); HEMATOCRIT 36 % (35-52); HEMOGLOBIN 11.9 G/DL (11.5-16.0); LYMPHOCYTES # (AUTO) 5.3 X 10^3 (1.0-4.0); LYMPHOCYTES % (AUTO) 57 % (12-44); MEAN CORPUSCULAR HEMOGLOBIN 30 PG (25-34); MEAN CORPUSCULAR HGB CONC 33 G/DL (32-36); MEAN CORPUSCULAR VOLUME 90 FL (80-99); MEAN PLATELET VOLUME 8.8 FL (7.4-10.4); MONOCYTES # (AUTO) 0.9 X 10^3 (0.0-1.0); MONOCYTES % (AUTO) 10 % (0-12); NEUTROPHILS # (AUTO) 2.8 X 10^3 (1.8-7.8); NEUTROPHILS % (AUTO) 30 % (42-75); PLATELET COUNT 258 10^3/uL (130-400); RED CELL DISTRIBUTION WIDTH 14.6 % (10.0-14.5); WHITE BLOOD COUNT 9.3 10^3/uL (4.3-11.0)
[2018-09-20 13:40] LABS: CALCIUM 9.5 MG/DL (8.5-10.1); CREATININE SERUM 1.02 MG/DL (0.60-1.30); POTASSIUM 4.1 MMOL/L (3.6-5.0)
[2018-09-27 11:28] LABS: BASOPHILS % (AUTO) 1 % (0-10); EOSINOPHILS # (AUTO) 0.2 10^3/uL (0.0-0.3); EOSINOPHILS % (AUTO) 2 % (0-10); HEMATOCRIT 34 % (35-52); HEMOGLOBIN 11.3 G/DL (11.5-16.0); LYMPHOCYTES # (AUTO) 5.5 X 10^3 (1.0-4.0); LYMPHOCYTES % (AUTO) 63 % (12-44); MEAN CORPUSCULAR HEMOGLOBIN 30 PG (25-34); MEAN CORPUSCULAR HGB CONC 33 G/DL (32-36); MEAN CORPUSCULAR VOLUME 90 FL (80-99); MEAN PLATELET VOLUME 8.9 FL (7.4-10.4); MONOCYTES # (AUTO) 0.9 X 10^3 (0.0-1.0); MONOCYTES % (AUTO) 11 % (0-12); NEUTROPHILS # (AUTO) 2.1 X 10^3 (1.8-7.8); NEUTROPHILS % (AUTO) 24 % (42-75); PLATELET COUNT 261 10^3/uL (130-400); RED CELL DISTRIBUTION WIDTH 14.6 % (10.0-14.5); WHITE BLOOD COUNT 8.7 10^3/uL (4.3-11.0)
[2018-09-27 11:49] LABS: CALCIUM 9.3 MG/DL (8.5-10.1); CREATININE SERUM 1.04 MG/DL (0.60-1.30); POTASSIUM 4.2 MMOL/L (3.6-5.0)
[2018-10-05 10:29] LABS: HEMATOCRIT 37 % (35-52); HEMOGLOBIN 12.2 G/DL (11.5-16.0); MEAN CORPUSCULAR HEMOGLOBIN 29 PG (25-34); MEAN CORPUSCULAR HGB CONC 33 G/DL (32-36); MEAN CORPUSCULAR VOLUME 88 FL (80-99); PLATELET COUNT 262 10^3/uL (130-400); RED CELL DISTRIBUTION WIDTH 14.5 % (10.0-14.5); WHITE BLOOD COUNT 10.2 10^3/uL (4.3-11.0)
[2018-10-05 10:51] LABS: ALBUMIN 4.4 GM/DL (3.2-4.5); BILIRUBIN,TOTAL 0.9 MG/DL (0.1-1.0); CALCIUM 9.5 MG/DL (8.5-10.1); CREATININE SERUM 1.28 MG/DL (0.60-1.30); POTASSIUM 3.8 MMOL/L (3.6-5.0); TOTAL PROTEIN 7.4 GM/DL (6.4-8.2)
[2018-10-11 14:58] LABS: BASOPHILS # (AUTO) 0.1 10^3/uL (0.0-0.1); BASOPHILS % (AUTO) 1 % (0-10); EOSINOPHILS # (AUTO) 0.2 10^3/uL (0.0-0.3); EOSINOPHILS % (AUTO) 2 % (0-10); HEMATOCRIT 38 % (35-52); HEMOGLOBIN 12.3 G/DL (11.5-16.0); LYMPHOCYTES % (AUTO) 58 % (12-44); MEAN CORPUSCULAR HEMOGLOBIN 29 PG (25-34); MEAN CORPUSCULAR HGB CONC 33 G/DL (32-36); MEAN CORPUSCULAR VOLUME 90 FL (80-99); MEAN PLATELET VOLUME 9.3 FL (7.4-10.4); MONOCYTES # (AUTO) 0.8 X 10^3 (0.0-1.0); MONOCYTES % (AUTO) 9 % (0-12); NEUTROPHILS # (AUTO) 2.6 X 10^3 (1.8-7.8); NEUTROPHILS % (AUTO) 31 % (42-75); PLATELET COUNT 258 10^3/uL (130-400); RED CELL DISTRIBUTION WIDTH 14.5 % (10.0-14.5); WHITE BLOOD COUNT 8.6 10^3/uL (4.3-11.0)
[2018-10-11 15:18] LABS: ALBUMIN 4.3 GM/DL (3.2-4.5); BILIRUBIN,TOTAL 0.8 MG/DL (0.1-1.0); CALCIUM 9.4 MG/DL (8.5-10.1); CREATININE SERUM 1.1 MG/DL (0.60-1.30); POTASSIUM 4.2 MMOL/L (3.6-5.0); TOTAL PROTEIN 7.2 GM/DL (6.4-8.2)
[~2018-10-18] VITALS: Ht 160 cm; Wt 79.8 kg
[~2018-10-18 13:09] MED LIST changes: +ACETAMINOPHEN 325 MG TAB (TYLENOL) CANCER CTR PO PRN; +DEXAMETHASONE INJECTION 10 MG in NS (IVPB) CANCER CENTER 50 ML IV SCH; +NS IV 1000 ML (CANCER CTR) IV SCH; +OBINUTUZUMAB 1,000 MG in NS (IVPB) CANCER CENTER 250 ML IV SCH; +ONDANSETRON MDV (CANCER CENTER 8 MG, DEXAMETHASONE INJECTION 10 MG in NS (IVPB) CANCER ... IV SCH; +diphenhydrAMINE 25 MG TAB (BENADRYL) CANCER CENTER PO ONE; +diphenhydrAMINE 50 MG/ML INJ (CANCER CENTER) IV PRN
[2018-10-18 13:42] LABS: BASOPHILS % (AUTO) 0 % (0-10); EOSINOPHILS # (AUTO) 0.2 10^3/uL (0.0-0.3); EOSINOPHILS % (AUTO) 3 % (0-10); HEMATOCRIT 37 % (35-52); HEMOGLOBIN 12.3 G/DL (11.5-16.0); LYMPHOCYTES # (AUTO) 4.6 X 10^3 (1.0-4.0); LYMPHOCYTES % (AUTO) 55 % (12-44); MEAN CORPUSCULAR HEMOGLOBIN 30 PG (25-34); MEAN CORPUSCULAR HGB CONC 33 G/DL (32-36); MEAN CORPUSCULAR VOLUME 89 FL (80-99); MEAN PLATELET VOLUME 8.9 FL (7.4-10.4); MONOCYTES # (AUTO) 0.9 X 10^3 (0.0-1.0); MONOCYTES % (AUTO) 11 % (0-12); NEUTROPHILS # (AUTO) 2.6 X 10^3 (1.8-7.8); NEUTROPHILS % (AUTO) 31 % (42-75); PLATELET COUNT 251 10^3/uL (130-400); RED CELL DISTRIBUTION WIDTH 14.5 % (10.0-14.5); WHITE BLOOD COUNT 8.4 10^3/uL (4.3-11.0)
[2018-10-18 14:13] LABS: CALCIUM 9.4 MG/DL (8.5-10.1); CREATININE SERUM 1.25 MG/DL (0.60-1.30); POTASSIUM 3.7 MMOL/L (3.6-5.0)
== END 2018-10-24 | disposition home or self-care (01) ==
LOC: ONC 13:09
PROVIDERS: ATTEND Internal Medicine Hematology & Oncology
DX: Z51.11 Encounter for antineoplastic chemotherapy (principal); C91.10 Chronic lymphocytic leukemia of B-cell type not having achieved remission; Z85.3 Personal history of malignant neoplasm of breast; F03.90 Unspecified dementia, unspecified severity, without behavioral disturbance, psychotic disturbance, mood disturbance, and anxiety; F41.9 Anxiety disorder, unspecified; I25.10 Atherosclerotic heart disease of native coronary artery without angina pectoris; J44.9 Chronic obstructive pulmonary disease, unspecified; I12.9 Hypertensive chronic kidney disease with stage 1 through stage 4 chronic kidney disease, or unspecified chronic kidney disease; N18.3 Chronic kidney disease, stage 3 (moderate); E78.00 Pure hypercholesterolemia, unspecified; E83.42 Hypomagnesemia; G25.81 Restless legs syndrome; Z90.12 Acquired absence of left breast and nipple; Z87.891 Personal history of nicotine dependence; Z79.899 Other long term (current) drug therapy; Z92.21 Personal history of antineoplastic chemotherapy
CPT/HCPCS: 36415; 80048; 80053; 83615; 85025; 96375; 96413; 96415

== ENCOUNTER 2018-12-27 10:35 | Outpatient (RCR) | payer MEDICARE ==
[2018-10-25 13:42] LABS: BASOPHILS % (AUTO) 0 % (0-10); EOSINOPHILS # (AUTO) 0.2 10^3/uL (0.0-0.3); EOSINOPHILS % (AUTO) 3 % (0-10); HEMATOCRIT 35 % (35-52); HEMOGLOBIN 11.4 G/DL (11.5-16.0); LYMPHOCYTES # (AUTO) 3.5 X 10^3 (1.0-4.0); LYMPHOCYTES % (AUTO) 57 % (12-44); MEAN CORPUSCULAR HEMOGLOBIN 29 PG (25-34); MEAN CORPUSCULAR HGB CONC 33 G/DL (32-36); MEAN CORPUSCULAR VOLUME 90 FL (80-99); MEAN PLATELET VOLUME 9.3 FL (7.4-10.4); MONOCYTES # (AUTO) 0.6 X 10^3 (0.0-1.0); MONOCYTES % (AUTO) 10 % (0-12); NEUTROPHILS # (AUTO) 1.9 X 10^3 (1.8-7.8); NEUTROPHILS % (AUTO) 30 % (42-75); PLATELET COUNT 227 10^3/uL (130-400); WHITE BLOOD COUNT 6.1 10^3/uL (4.3-11.0)
[2018-10-25 13:56] LABS: CALCIUM 8.8 MG/DL (8.5-10.1); CREATININE SERUM 1.09 MG/DL (0.60-1.30); POTASSIUM 3.8 MMOL/L (3.6-5.0)
[2018-11-01 10:00] LABS: BASOPHILS % (AUTO) 0 % (0-10); EOSINOPHILS # (AUTO) 0.2 10^3/uL (0.0-0.3); EOSINOPHILS % (AUTO) 2 % (0-10); HEMATOCRIT 35 % (35-52); HEMOGLOBIN 11.5 G/DL (11.5-16.0); LYMPHOCYTES # (AUTO) 3.3 X 10^3 (1.0-4.0); LYMPHOCYTES % (AUTO) 54 % (12-44); MEAN CORPUSCULAR HEMOGLOBIN 29 PG (25-34); MEAN CORPUSCULAR HGB CONC 33 G/DL (32-36); MEAN CORPUSCULAR VOLUME 89 FL (80-99); MEAN PLATELET VOLUME 8.8 FL (7.4-10.4); MONOCYTES # (AUTO) 0.5 X 10^3 (0.0-1.0); MONOCYTES % (AUTO) 9 % (0-12); NEUTROPHILS # (AUTO) 2.1 X 10^3 (1.8-7.8); NEUTROPHILS % (AUTO) 35 % (42-75); PLATELET COUNT 244 10^3/uL (130-400); RED CELL DISTRIBUTION WIDTH 14.3 % (10.0-14.5); WHITE BLOOD COUNT 6.2 10^3/uL (4.3-11.0)
[2018-11-01 10:22] LABS: ALBUMIN 4.1 GM/DL (3.2-4.5); BILIRUBIN,TOTAL 0.5 MG/DL (0.1-1.0); CALCIUM 9.2 MG/DL (8.5-10.1); CREATININE SERUM 1.07 MG/DL (0.60-1.30); POTASSIUM 3.8 MMOL/L (3.6-5.0); TOTAL PROTEIN 6.8 GM/DL (6.4-8.2)
[2018-11-15 14:06] LABS: BASOPHILS % (AUTO) 1 % (0-10); EOSINOPHILS # (AUTO) 0.2 10^3/uL (0.0-0.3); EOSINOPHILS % (AUTO) 3 % (0-10); HEMATOCRIT 36 % (35-52); HEMOGLOBIN 11.7 G/DL (11.5-16.0); LYMPHOCYTES # (AUTO) 3.7 X 10^3 (1.0-4.0); LYMPHOCYTES % (AUTO) 59 % (12-44); MEAN CORPUSCULAR HEMOGLOBIN 29 PG (25-34); MEAN CORPUSCULAR HGB CONC 33 G/DL (32-36); MEAN CORPUSCULAR VOLUME 90 FL (80-99); MONOCYTES # (AUTO) 0.6 X 10^3 (0.0-1.0); MONOCYTES % (AUTO) 10 % (0-12); NEUTROPHILS # (AUTO) 1.7 X 10^3 (1.8-7.8); NEUTROPHILS % (AUTO) 27 % (42-75); PLATELET COUNT 231 10^3/uL (130-400); RED CELL DISTRIBUTION WIDTH 13.8 % (10.0-14.5); WHITE BLOOD COUNT 6.2 10^3/uL (4.3-11.0)
[2018-11-15 14:21] LABS: CALCIUM 9.7 MG/DL (8.5-10.1); CREATININE SERUM 1.19 MG/DL (0.60-1.30); POTASSIUM 4.5 MMOL/L (3.6-5.0)
[2018-11-29 11:06] LABS: BASOPHILS % (AUTO) 1 % (0-10); EOSINOPHILS # (AUTO) 0.2 10^3/uL (0.0-0.3); EOSINOPHILS % (AUTO) 3 % (0-10); HEMATOCRIT 33 % (35-52); HEMOGLOBIN 10.9 G/DL (11.5-16.0); LYMPHOCYTES # (AUTO) 2.8 X 10^3 (1.0-4.0); LYMPHOCYTES % (AUTO) 58 % (12-44); MEAN CORPUSCULAR HEMOGLOBIN 29 PG (25-34); MEAN CORPUSCULAR HGB CONC 33 G/DL (32-36); MEAN CORPUSCULAR VOLUME 89 FL (80-99); MEAN PLATELET VOLUME 8.6 FL (7.4-10.4); MONOCYTES # (AUTO) 0.5 X 10^3 (0.0-1.0); MONOCYTES % (AUTO) 9 % (0-12); NEUTROPHILS # (AUTO) 1.4 X 10^3 (1.8-7.8); NEUTROPHILS % (AUTO) 29 % (42-75); PLATELET COUNT 210 10^3/uL (130-400); RED CELL DISTRIBUTION WIDTH 13.8 % (10.0-14.5); WHITE BLOOD COUNT 4.9 10^3/uL (4.3-11.0)
[2018-11-29 11:27] LABS: ALBUMIN 4.1 GM/DL (3.2-4.5); BILIRUBIN,TOTAL 0.7 MG/DL (0.1-1.0); CALCIUM 10.2 MG/DL (8.5-10.1); CREATININE SERUM 1.14 MG/DL (0.60-1.30); POTASSIUM 3.7 MMOL/L (3.6-5.0); TOTAL PROTEIN 6.7 GM/DL (6.4-8.2)
[2018-12-20 11:33] LABS: BASOPHILS % (AUTO) 1 % (0-10); EOSINOPHILS # (AUTO) 0.1 10^3/uL (0.0-0.3); EOSINOPHILS % (AUTO) 3 % (0-10); HEMATOCRIT 34 % (35-52); HEMOGLOBIN 11.3 G/DL (11.5-16.0); LYMPHOCYTES # (AUTO) 2.3 X 10^3 (1.0-4.0); LYMPHOCYTES % (AUTO) 60 % (12-44); MEAN CORPUSCULAR HEMOGLOBIN 30 PG (25-34); MEAN CORPUSCULAR HGB CONC 34 G/DL (32-36); MEAN CORPUSCULAR VOLUME 90 FL (80-99); MEAN PLATELET VOLUME 9.3 FL (7.4-10.4); MONOCYTES # (AUTO) 0.5 X 10^3 (0.0-1.0); MONOCYTES % (AUTO) 13 % (0-12); NEUTROPHILS # (AUTO) 0.9 X 10^3 (1.8-7.8); NEUTROPHILS % (AUTO) 23 % (42-75); PLATELET COUNT 188 10^3/uL (130-400); RED CELL DISTRIBUTION WIDTH 13.5 % (10.0-14.5); WHITE BLOOD COUNT 3.8 10^3/uL (4.3-11.0)
[2018-12-20 11:56] LABS: BILIRUBIN,TOTAL 0.8 MG/DL (0.1-1.0); CALCIUM 9.1 MG/DL (8.5-10.1); CREATININE SERUM 1.3 MG/DL (0.60-1.30); TOTAL PROTEIN 6.7 GM/DL (6.4-8.2)
[~2018-12-27] VITALS: Ht 160 cm; Wt 81.2 kg
[~2018-12-27 10:35] MED LIST changes: -DEXAMETHASONE INJECTION 10 MG in NS (IVPB) CANCER CENTER 50 ML IV SCH
[2018-12-27 10:55] LABS: BASOPHILS % (AUTO) 1 % (0-10); EOSINOPHILS # (AUTO) 0.2 10^3/uL (0.0-0.3); EOSINOPHILS % (AUTO) 3 % (0-10); HEMATOCRIT 35 % (35-52); HEMOGLOBIN 11.8 G/DL (11.5-16.0); LYMPHOCYTES # (AUTO) 3.3 X 10^3 (1.0-4.0); LYMPHOCYTES % (AUTO) 62 % (12-44); MEAN CORPUSCULAR HEMOGLOBIN 30 PG (25-34); MEAN CORPUSCULAR HGB CONC 34 G/DL (32-36); MEAN CORPUSCULAR VOLUME 89 FL (80-99); MEAN PLATELET VOLUME 8.7 FL (7.4-10.4); MONOCYTES # (AUTO) 0.5 X 10^3 (0.0-1.0); MONOCYTES % (AUTO) 10 % (0-12); NEUTROPHILS # (AUTO) 1.3 X 10^3 (1.8-7.8); NEUTROPHILS % (AUTO) 25 % (42-75); PLATELET COUNT 208 10^3/uL (130-400); RED CELL DISTRIBUTION WIDTH 13.8 % (10.0-14.5); WHITE BLOOD COUNT 5.3 10^3/uL (4.3-11.0)
[2018-12-27 11:22] LABS: ALBUMIN 4.1 GM/DL (3.2-4.5); BILIRUBIN,TOTAL 0.8 MG/DL (0.1-1.0); CALCIUM 9.1 MG/DL (8.5-10.1); CREATININE SERUM 1.24 MG/DL (0.60-1.30); POTASSIUM 3.9 MMOL/L (3.6-5.0)
== END 2019-01-23 | disposition home or self-care (01) ==
LOC: ONC 10:35
PROVIDERS: ATTEND Internal Medicine Hematology & Oncology
DX: Z51.11 Encounter for antineoplastic chemotherapy (principal); C91.10 Chronic lymphocytic leukemia of B-cell type not having achieved remission; Z85.3 Personal history of malignant neoplasm of breast; F03.90 Unspecified dementia, unspecified severity, without behavioral disturbance, psychotic disturbance, mood disturbance, and anxiety; F41.9 Anxiety disorder, unspecified; I25.10 Atherosclerotic heart disease of native coronary artery without angina pectoris; J44.9 Chronic obstructive pulmonary disease, unspecified; I12.9 Hypertensive chronic kidney disease with stage 1 through stage 4 chronic kidney disease, or unspecified chronic kidney disease; N18.3 Chronic kidney disease, stage 3 (moderate); E78.00 Pure hypercholesterolemia, unspecified; E83.42 Hypomagnesemia; G25.81 Restless legs syndrome; Z90.12 Acquired absence of left breast and nipple; Z87.891 Personal history of nicotine dependence; Z79.899 Other long term (current) drug therapy; Z92.21 Personal history of antineoplastic chemotherapy
CPT/HCPCS: 36415; 80048; 80053; 83615; 85025; 96375; 96413; 96415; 99213

== ENCOUNTER → 2019-04-11 | Outpatient (CLI) | payer MEDICARE ==
[~2019-04-11] VITALS: Ht 160 cm; Wt 79.0 kg
[~2019-04-11] MED LIST changes: -ACETAMINOPHEN 325 MG TAB (TYLENOL) CANCER CTR PO PRN; -NS IV 1000 ML (CANCER CTR) IV SCH; -OBINUTUZUMAB 1,000 MG in NS (IVPB) CANCER CENTER 250 ML IV SCH; -ONDANSETRON MDV (CANCER CENTER 8 MG, DEXAMETHASONE INJECTION 10 MG in NS (IVPB) CANCER ... IV SCH; +REGADENOSON 0.4 MG/5 ML SYR (LEXISCAN) IV ONE; -diphenhydrAMINE 25 MG TAB (BENADRYL) CANCER CENTER PO ONE; -diphenhydrAMINE 50 MG/ML INJ (CANCER CENTER) IV PRN
[2019-04-11] MEDS: CATHETER FLUSH 10 ML SYR IV PRN ×2 (08:59→09:56)
[2019-04-11 09:57] VITALS: BP 179/82
[2019-04-11 10:37] LABS: ALBUMIN 4.3 GM/DL (3.2-4.5); BILIRUBIN,TOTAL 0.7 MG/DL (0.1-1.0); CALCIUM 9.2 MG/DL (8.5-10.1); CREATININE SERUM 1.19 MG/DL (0.60-1.30); TOTAL PROTEIN 7.1 GM/DL (6.4-8.2)
--- NOTE | 2019-04-11 22:10 | STRESS TEST ---
DATE OF SERVICE: 04/11/2019 LEXISCAN MYOVIEW STRESS TEST REFERRING PHYSICIAN: Dr. Elver Carmona. Baseline heart rate is 60. Baseline blood pressure is 179/82. Baseline EKG is sinus rhythm with left bundle branch block. In summary, the patient was injected with 10.14 mCi of technetium-99 Myoview and the resting images were obtained. Then, the patient received 0.4 mg of Lexiscan followed by 30.5 mCi of technetium-99 Myoview. Throughout the test, there were no EKG changes. The resting and stress images were reviewed and compared in the short axis, horizontal long axis, and vertical long axis views. Review of the images showed diaphragmatic attenuation with decreased uptake involving the whole inferior wall and inferolateral wall with subtle reversibility. SSS is 8, SDS 2, TID value 1.01. On the gated images, the left ventricle appeared to be normal size with normal contractility. Calculated ejection fraction 68%. CONCLUSION: 1. The patient tolerated Lexiscan well. 2. Baseline left bundle branch block persisted throughout test. 3. Diaphragmatic attenuation with decreased uptake involving the whole inferior wall and inferolateral wall with mild reversibility. 4. Normal left ventricular size with normal contractility. Calculated ejection fraction 68%. Job ID: [id number] DocumentID: [id number] Dictated Date: 04/11/2019 16:46:20 Illuminating Engineer Date: 04/11/2019 22:09:23 Dictated By: LLUVIA GARDUNO MD
== END ==
LOC: CARD 08:42
PROVIDERS: ATTEND Physician Assistant
DX: I25.10 Atherosclerotic heart disease of native coronary artery without angina pectoris (principal); E78.00 Pure hypercholesterolemia, unspecified; K21.9 Gastro-esophageal reflux disease without esophagitis; I44.7 Left bundle-branch block, unspecified; R06.02 Shortness of breath; I34.0 Nonrheumatic mitral (valve) insufficiency
CPT/HCPCS: 36415; 78452; 80053; 80061; 93017; 93306

== ENCOUNTER 2019-04-12 12:57 | Outpatient (RCR) | payer MEDICARE ==
[2019-01-24 13:47] LABS: ABSOLUTE RETIC # 55 10e9/L (24-90); BASOPHILS % (AUTO) 0 % (0-10); EOSINOPHILS # (AUTO) 0.2 10^3/uL (0.0-0.3); EOSINOPHILS % (AUTO) 3 % (0-10); HEMATOCRIT 37 % (35-52); HEMOGLOBIN 12.1 G/DL (11.5-16.0); LYMPHOCYTES # (AUTO) 4.1 X 10^3 (1.0-4.0); LYMPHOCYTES % (AUTO) 59 % (12-44); MEAN CORPUSCULAR HEMOGLOBIN 29 PG (25-34); MEAN CORPUSCULAR HGB CONC 33 G/DL (32-36); MEAN CORPUSCULAR VOLUME 89 FL (80-99); MEAN PLATELET VOLUME 9.2 FL (7.4-10.4); MONOCYTES # (AUTO) 0.7 X 10^3 (0.0-1.0); MONOCYTES % (AUTO) 10 % (0-12); NEUTROPHILS # (AUTO) 1.9 X 10^3 (1.8-7.8); NEUTROPHILS % (AUTO) 28 % (42-75); PLATELET COUNT 243 10^3/uL (130-400); RED CELL DISTRIBUTION WIDTH 13.9 % (10.0-14.5); RETICULOCYTE % 1.33 % (0.50-2.40); WHITE BLOOD COUNT 6.8 10^3/uL (4.3-11.0)
[2019-01-24 14:11] LABS: ALBUMIN 4.4 GM/DL (3.2-4.5); CALCIUM 9.6 MG/DL (8.5-10.1); CREATININE SERUM 1.14 MG/DL (0.60-1.30); TOTAL PROTEIN 7.1 GM/DL (6.4-8.2)
[2019-01-24 14:21] LABS: BILIRUBIN,TOTAL 0.9 MG/DL (0.1-1.0)
[2019-01-24 14:57] LABS: BASOPHILS % (MANUAL) 0 %; EOSINOPHILS % (MANUAL) 1 %; LYMPHOCYTES % (MANUAL) 69 %; MONOCYTES % (MANUAL) 2 %; NEUTROPHILS % (MANUAL) 23 %; REACTIVE LYMPHOCYTES 5 %
[2019-01-24 14:58] LABS: ANISOCYTOSIS SLIGHT; ELLIPT/OVALOCYTES SLIGHT
[2019-01-29 13:26] LABS: IMMUNOFIX PATH REPORT NUMBER TNP:Duplicate Test
[~2019-04-12 12:57] MED LIST changes: +ACETAMINOPHEN 325 MG TAB (TYLENOL) CANCER CTR PO PRN; +NS IV 1000 ML (CANCER CTR) IV SCH; +OBINUTUZUMAB 1,000 MG in NS (IVPB) CANCER CENTER 250 ML IV SCH; +ONDANSETRON MDV (CANCER CENTER 8 MG, DEXAMETHASONE INJECTION 10 MG in NS (IVPB) CANCER ... IV SCH; -REGADENOSON 0.4 MG/5 ML SYR (LEXISCAN) IV ONE; +diphenhydrAMINE 50 MG/ML INJ (CANCER CENTER) IV PRN
[2019-04-12 13:20] LABS: BASOPHILS % (AUTO) 0 % (0-10); EOSINOPHILS # (AUTO) 0.1 10^3/uL (0.0-0.3); EOSINOPHILS % (AUTO) 2 % (0-10); HEMATOCRIT 34 % (35-52); HEMOGLOBIN 11.2 G/DL (11.5-16.0); LYMPHOCYTES # (AUTO) 4.2 X 10^3 (1.0-4.0); LYMPHOCYTES % (AUTO) 65 % (12-44); MEAN CORPUSCULAR HEMOGLOBIN 30 PG (25-34); MEAN CORPUSCULAR HGB CONC 33 G/DL (32-36); MEAN CORPUSCULAR VOLUME 90 FL (80-99); MEAN PLATELET VOLUME 9.2 FL (7.4-10.4); MONOCYTES # (AUTO) 0.7 X 10^3 (0.0-1.0); MONOCYTES % (AUTO) 11 % (0-12); NEUTROPHILS # (AUTO) 1.4 X 10^3 (1.8-7.8); NEUTROPHILS % (AUTO) 22 % (42-75); PLATELET COUNT 224 10^3/uL (130-400); RED CELL DISTRIBUTION WIDTH 14.2 % (10.0-14.5); WHITE BLOOD COUNT 6.4 10^3/uL (4.3-11.0)
[2019-04-12 13:57] LABS: ALBUMIN 4.2 GM/DL (3.2-4.5); BILIRUBIN,TOTAL 0.7 MG/DL (0.1-1.0); CALCIUM 9.1 MG/DL (8.5-10.1); CREATININE SERUM 1.18 MG/DL (0.60-1.30); POTASSIUM 4.2 MMOL/L (3.6-5.0); TOTAL PROTEIN 6.7 GM/DL (6.4-8.2)
[2019-04-15] MEDS ORDERED: CALC-140 PO (07:43)
[2019-04-15] MEDS ORDERED: ASPI-983 PO (07:43)
[2019-04-15] MEDS ORDERED: FLUT9.9S NS (07:43)
[2019-04-15] MEDS ORDERED: POTA2TAB15 PO (07:43)
[2019-04-15] MEDS ORDERED: ATEN25TA PO (07:43)
[2019-04-15] MEDS ORDERED: LINA72CA PO (07:43)
[2019-04-15] MEDS ORDERED: CLOP75TA69 PO (07:43)
[2019-04-15] MEDS ORDERED: CITA20TA12 PO (07:43)
[2019-04-15] MEDS ORDERED: DONE10TA41 PO (07:43)
[2019-04-15] MEDS ORDERED: DIPH25CA6 PO (07:43)
[2019-04-15] MEDS ORDERED: LOSA1TAB23 PO (07:43)
[2019-04-15] MEDS ORDERED: ALB0.5V INH (07:43)
[2019-04-15] MEDS ORDERED: ATOR40TA70 PO (07:43)
[2019-04-15] MEDS ORDERED: OMEP40CA36 PO (07:43)
[2019-04-15] MEDS ORDERED: ONDA8TAB6 PO (07:43)
[2019-04-15] MEDS ORDERED: PEG15DRO9 OU (08:13)
[2019-04-15] MEDS ORDERED: GUAI100L36 PO (08:13)
[2019-04-15] MEDS ORDERED: ACYC400T PO (08:13)
== END 2019-04-24 | disposition home or self-care (01) ==
LOC: ONC 12:57
PROVIDERS: ATTEND Internal Medicine Hematology & Oncology
DX: C91.10 Chronic lymphocytic leukemia of B-cell type not having achieved remission (principal); Z85.3 Personal history of malignant neoplasm of breast; F03.90 Unspecified dementia, unspecified severity, without behavioral disturbance, psychotic disturbance, mood disturbance, and anxiety; F41.9 Anxiety disorder, unspecified; I25.10 Atherosclerotic heart disease of native coronary artery without angina pectoris; J44.9 Chronic obstructive pulmonary disease, unspecified; I12.9 Hypertensive chronic kidney disease with stage 1 through stage 4 chronic kidney disease, or unspecified chronic kidney disease; N18.3 Chronic kidney disease, stage 3 (moderate); E78.00 Pure hypercholesterolemia, unspecified; E83.42 Hypomagnesemia; G25.81 Restless legs syndrome; Z90.12 Acquired absence of left breast and nipple; Z87.891 Personal history of nicotine dependence; Z79.899 Other long term (current) drug therapy; Z92.21 Personal history of antineoplastic chemotherapy
CPT/HCPCS: 36415; 80053; 82784; 83615; 83883; 84155; 84165; 85007; 85025; 85027; 85045; 86334; 88377; 99213

== ENCOUNTER 2019-04-15 06:48 | Day surgery (SDC) | payer MEDICARE ==
[2019-04-15] VITALS (9 sets, daily range): BP systolic 145–159; BP diastolic 64–83
[~2019-04-15] VITALS: Ht 160 cm; Wt 79.0 kg
[~2019-04-15 06:48] MED LIST changes: -ACETAMINOPHEN 325 MG TAB (TYLENOL) CANCER CTR PO PRN; -GUAI400T44 PO; +GUAI400T85 PO; -MAGN400T6 PO; +MAGN400T8 PO; -NS IV 1000 ML (CANCER CTR) IV SCH; -OBINUTUZUMAB 1,000 MG in NS (IVPB) CANCER CENTER 250 ML IV SCH; -ONDANSETRON MDV (CANCER CENTER 8 MG, DEXAMETHASONE INJECTION 10 MG in NS (IVPB) CANCER ... IV SCH; -diphenhydrAMINE 50 MG/ML INJ (CANCER CENTER) IV PRN
[2019-04-15] MEDS ORDERED: NS IV 1000 ML 3,000 ML ONE (06:59)
[2019-04-15] MEDS ORDERED: LIDOCAINE 1% INJ 20 ML 20 ML VIAL ONE (06:59)
[2019-04-15] MEDS ORDERED: HEParin 1000 UNIT/ML (10ML VIAL) FOR BOLUS ONE (06:59)
[2019-04-15] MEDS ORDERED: NS IV 1000 ML 1,000 ML IV SCH ×2 (07:15→09:02)
[2019-04-15 07:29] LABS: HEMOGLOBIN 11.8 G/DL (11.5-16.0); MEAN PLATELET VOLUME 8.9 FL (7.4-10.4); RED CELL DISTRIBUTION WIDTH 14.5 % (10.0-14.5)
[2019-04-15 07:30] LABS: BILIRUBIN,URINE NEGATIVE (NEGATIVE); CLARITY,URINE CLEAR; COLOR,URINE YELLOW; GLUCOSE, URINE (UA) NEGATIVE (NEGATIVE); KETONES,URINE NEGATIVE (NEGATIVE); LEUKOCYTE ESTERASE ,URINE NEGATIVE (NEGATIVE); NITRITE,URINE NEGATIVE (NEGATIVE); PH,URINE 6.5 (5-9); PROTEIN,URINE NEGATIVE (NEGATIVE)
[2019-04-15 07:40] LABS: INR 0.9 (0.8-1.4); PROTHROMBIN TIME PATIENT 12.6 SEC (12.2-14.7)
[2019-04-15] MEDS ORDERED: CITA20TA12 PO (07:43)
[2019-04-15] MEDS ORDERED: ASPI-983 PO (07:43)
[2019-04-15] MEDS ORDERED: ATOR40TA70 PO (07:43)
[2019-04-15] MEDS ORDERED: ONDA8TAB6 PO (07:43)
[2019-04-15] MEDS ORDERED: CALC-140 PO (07:43)
[2019-04-15] MEDS ORDERED: CLOP75TA69 PO (07:43)
[2019-04-15] MEDS ORDERED: ATEN25TA PO (07:43)
[2019-04-15] MEDS ORDERED: FLUT9.9S NS (07:43)
[2019-04-15] MEDS ORDERED: POTA2TAB15 PO (07:43)
[2019-04-15] MEDS ORDERED: ALB0.5V INH (07:43)
[2019-04-15] MEDS ORDERED: LOSA1TAB23 PO (07:43)
[2019-04-15] MEDS ORDERED: DONE10TA41 PO (07:43)
[2019-04-15] MEDS ORDERED: LINA72CA PO (07:43)
[2019-04-15] MEDS ORDERED: OMEP40CA27 PO (07:43)
[2019-04-15] MEDS ORDERED: DIPH25CA48 PO (07:43)
[2019-04-15 07:49] LABS: ALBUMIN 4.4 GM/DL (3.2-4.5); BILIRUBIN,TOTAL 0.6 MG/DL (0.1-1.0); CALCIUM 9.9 MG/DL (8.5-10.1); CREATININE SERUM 1.31 MG/DL (0.60-1.30); POTASSIUM 4.1 MMOL/L (3.6-5.0); TOTAL PROTEIN 7.1 GM/DL (6.4-8.2)
[2019-04-15 07:54] LABS: BACTERIA,URINE NEGATIVE /HPF; SQUAMOUS EPITHELIAL CELL,UR 0-2 /HPF; WBC,URINE RARE /HPF
--- NOTE | 2019-04-15 07:58 | Diagnostic Imaging Report ---
INDICATION: Abnormal stress test, coronary artery disease. COMPARISON: 02/10/2018 TECHNIQUE: Single radiograph of the chest dated 04/15/2019. FINDINGS: The cardiac silhouette remains borderline enlarged. No significant pulmonary vascular congestion. The lungs are clear without focal pulmonary opacity. No pleural effusion. No pneumothorax. No acute osseous abnormality. IMPRESSION: Stable borderline cardiomegaly without overt congestive heart failure or acute cardiopulmonary abnormality. Dictated by: Dictated on workstation # [id number]
[2019-04-15] MEDS ORDERED: fentaNYL INJECTION 100 MCG/2 ML AMP ONE (07:59)
[2019-04-15] MEDS ORDERED: MIDAZOLAM 5 MG/5 ML (VERSED) VIAL ONE (07:59)
[2019-04-15] MEDS ORDERED: PEG15DRO9 OU (08:13)
[2019-04-15] MEDS ORDERED: GUAI100L36 PO (08:13)
[2019-04-15] MEDS ORDERED: ACYC400T PO (08:13)
--- NOTE | 2019-04-15 08:18 | NUR ---
SPOKE WITH THE PT (AND HER -SHE HAD A MED LIST) WELL CALLING [facility] TO COMPLETE THE MED REC. PT OR HER WERE ABLE TO TELL ME HOW/WHEN SHE TAKES ALL HER MEDS, AND THE FILL DATES/ DIRECTIONS ARE CONSISTENT WITH [facility]. ON THE PT'S MED LIST SHE HAD ALBUTEROL NEB, ALBUTEROL HFA (PRO-AIR RESPICLICK), AND BUDESONIDE. SHE STATES SHE DOES NOT USE THE PROAIR OR THE BUDESONIDE, BUT DOES USE ALBUTEROL NEB. SOLUTION PRN- [facility] DOES NOT HAVE A FILL DATE, BUT I LEFT IT ON THE MED REC SINCE IT IS PRN AND SHE COULD HAVE RECEIVED A LARGE QTY LAST TIME IT WAS FILLED. THE FOLLOWING ARE FILL DATES: 07-13-2018 ONDANSETRON #30/USES PRN 07-13-2018 LINZESS #30/USES PRN 01-28-2019 ACYCLOVIR #180/90DS 01-29-2019 CLOPIDOGREL #90/90DS 02-14-2019 ATENOLOL #90/90DS 02-14-2019 OMEPRAZOLE #90/90DS 02-26-2019 ATORVASTATIN #90/90DS 02-26-2019 DONEPEZIL #90/90DS 03-31-2019 CITALOPRAM #60/60DS 03-31-2019 LOSARTAN/HCTZ #90/90DS OTC MEDS: ASPIRIN CALCIUM WITH VIT D CETIRIZINE DIPHENHYDRAMINE LOPERAMIDE MAGNESIUM OMEGA 3 POTASSIUM GLUC 500 VISINE TUSSIN COUGH SYRUP FLONASE
--- NOTE | 2019-04-15 08:32 | Cardiac Procedure Note-CS/ASA ---
Pre-Procedure Note Pre-Op Procedure Note H&P Reviewed The H&P was reviewed, patient examined and no changes noted. Date H&P Reviewed: Apr 15, 2019 Time H&P Reviewed: 08:31 Conscious Sedation Pre-Proced Time 08:31 ASA Score 3 For ASA 3 and 4: Consider anesthesia and medical clearance. Also, for patients with a history of failed moderate sedation consider anesthesia. Airway Lungs Heart ASA score ASA 1: a normal healthy patient ASA 2: a patient with a mild systemic disease (mid diabetes, controlled hypertension, obesity x ASA 3: a patient with a severe systemic disease that limits activity (angina, COPD, prior Myocardial infarction) ASA 4: a patient with an incapacitating disease that is a constant threat to life (CHF, renal failure) ASA 5: a moribund patient not expected to survive 24 hrs. (ruptured aneurysm) ASA 6: a declared brain- patient whose organs are being harvested. For emergent operations, add the letter E after the classification Mallampati Classification Grade 3 Sedation Plan Analgesia, Amnesia, Plan communicated to team members, Discussed options with patient/fam, Discussed risks with patient/fam The patient is an appropriate candidate to undergo the planned procedure, sedation, and anesthesia. The patient immediately re-assessed prior to indication. LLUVIA GARDUNO MD Apr 15, 2019 08:32 POS
--- NOTE | 2019-04-15 09:04 | Discharge Inst-Post CATH ---
Discharge Inst-CATH/EP Problems Reviewed?: Yes Post Cardiac Cath/EP D/C Inst Follow Up/Plan Appointment with Dr. GARDUNO's office in 4 weeks <b>CARDIAC CATH/EP PROCEDURE DISCHARGE INSTRUCTIONS</b> ACTIVITY * Go Home directly and rest. * Limit activity of the leg (or wrist if it was used) for 7 days including aerobics, swimming, jogging, bicycling, etc. * Restrict stair-climbing for 7 days if possible, if not, climb up with your non-cath leg, then bring together on the same step. * Avoid lifting, pushing, pulling or excessive movement of the affected e xtremity for 7 days. * Customary sexual activity may be resumed after 2 days-use caution not to use a position that strains or causes pain to the affected extremity. * No driving for 24 hours. * NO SMOKING. * Avoid straining for bowel movements for 7 days. * Gentle walking on level ground is allowed. * Returning to work will depend on the type of procedure and the results. Your doctor will discuss this with you. CALL YOUR DOCTOR FOR ANY OF THE FOLLOWING: *If bleeding from the puncture site occurs- Apply gentle pressure to site with clean cloth and call your doctor or EMS. * If a knot or lump forms under the skin, increases in size, or causes pain. * If bruising appears to be worsening or moving further down your leg instead of disappearing. * Temperature above 101 F. CARE OF YOUR GROIN INCISION; * Bruising or purple discoloration of the skin near the puncture site is common. * You may shower only, no bathtub bathing for 5 days. Be careful to avoid slipping as your leg may feel stiff. * If a closure device was used on your femoral artery, please see the attached guide regarding care of the device and your leg. * Leave dressing on FOR 24 hours. CARE OF YOUR WRIST INCISION; * Bruising or purple discoloration of the skin near the puncture site is common. * You may shower. * DO NOT submerge wrist. * Leave dressing on FOR 24 hours. LLUVIA GARDUNO MD Apr 15, 2019 09:04 POS
--- NOTE | 2019-04-15 09:07 | Cardiac Cath Report ---
Cardiac Cath Report Physician (s)/Training Associate (s) Physician LLUVIA GARDUNO MD Pre-Procedure Diagnosis Pre-Procedure Diagnosis: Coronary artery disease Post-Procedure Note Procedure Start Date: Apr 15, 2019 Name of Procedure: Left heart catheterization Findings/Procedure Note PROCEDURE NOTE: 78-year-old lady with history of coronary artery disease stent to the LAD, had an abnormal stress test with inferior wall ischemia, scheduled for cardiac catheterization possible PTCA. After explaining the procedure to the patient, all pros and cons were explained, all questions were answered. The patient signed the consent and then she was placed on the cardiac catheterization laboratory. Groin was prepped SL fashion local anesthesia was used. Sheath placed in the right femoral artery. Keagan right and left catheter were used to access the coronary system. JR catheter was used to cross over to the left ventricular cavity, pressure was measured no left ventricular gram was done. At the end of the procedure the sheath was removed. Closure device was used FINDINGS: Hemodynamics LV 146/17, end-diastolic pressure of 17 Aorta 143/51 mean of 85 ANATOMY: Left Main is free of obstructive disease Left Anterior Descending is calcified with patent stent proximally, mid to distal portion had moderate lesion with small vessel disease and slow flow distally Left Circumflex his large dominant artery with slow flow distally and small vessel disease Right Coronory Artery a small nondominant artery LV Gram was not done, pressure was measured CONCLUSION: 1. Calcified arteries with patent stent in the proximal LAD, slow flow at the distal LAD and dominant circumflex artery due to small vessel disease 2. Small nondominant right coronary artery with no obstructive disease 3. Normal left ventricular end-diastolic pressure DISCUSSION AND RECOMMENDATION: medical therapy is recommended no intervention is needed Anesthesia Type: Conscious Sedation Estimated blood loss (mL): 20 ml Contrast Amount: 22 ml Total Radiation Dose: 166 mGy Post-Procedure Diagnosis Post-operative diagnosis: Chest pain Coronary artery disease Hypertension Hyperlipidemia LLUVIA GARDUNO MD Apr 15, 2019 09:07 POS
[2019-04-15] MEDS ORDERED: PATIENT MAY USE OWN MEDS, ALL PO SCH (09:15)
--- OUTSIDE RECORDS SUMMARY | 2019-05-11 08:16 | XMS REPORT | Continuity of Care Document ---
Author Organization Unknown Address Unknown Phone Unavailable Allergies Active Description Code Type Severity Reaction Onset Reported/Identified Relationship to Patient Clinical Status Yes No Known Drug Allergies [id number] Drug Allergy Unknown N/A 05/03/2016 Medications There is no data. 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 09/25/2012 TAVO VALLE MD Ot 272.4 HYPERLIPIDEMIA NEC/NOS 09/25/2012 TAVO VALLE MD Ot 305.1 TOBACCO USE DISORDER 09/25/2012 TAVO VALLE MD Ot 31 1 DEPRESSIVE DISORDER NEC 09/25/2012 TAVO VALLE MD [...] VALLE MD Ot 530.11 REFLUX ESOPHAGITIS 06/16/2013 TAVO VALLE MD Ot 562.10 DIVERTICULOSIS COLON (W/O MENT OF HEMORR 06/16/2013 TAVO VALLE MD Ot V12.72 PERSONAL HISTORY OF COLONIC POLYPS 06/23/2013 YOIS BRINK Ot 174.9 MALIGN NEOPL BREAST NOS [...] VALLE MD Ot 401.9 HYPERTENSION NOS 01/17/2014 TAVO VALLE MD Ot 414.00 CORON ATHEROSCLER NOS TYPE VESSEL, NATIV 01/17/2014 TAVO VALLE MD Ot 447.8 ARTERIAL DISEASE NEC 01/17/2014 TAVO VALLE MD Ot 530.81 ESOPHAGEAL REFLUX 01/17/2014 TAVO VALLE MD Ot V10.3 HX OF BREAST MALIGNANCY 01/17/2014 TAVO VALLE MD Ot V12.72 PERSONAL HISTORY OF COLONIC POLYPS 01/17/2014 TAVO VALLE MD Ot V12.79 PERSONAL HISTORY OTH SPEC DIGESTIVE SYST 03/27/2014 JIM SHER ANESTHESIA ASSISTANT Ot 174.9 03/27/2014 JIM SHER ANESTHESIA ASSISTANT Ot V76.12 03/29/2014 JIM SHER ANESTHESIA ASSISTANT Ot 174.9 03/29/2014 JIM SHER ANESTHESIA ASSISTANT Ot V76.12 04/18/2014 JIM SHER ANESTHESIA ASSISTANT Ot 174.9 04/18/2014 JIM SHER ANESTHESIA ASSISTANT Ot V76.12 04/24/2014 TAVO VALLE MD Ot 433.10 04/24/2014 TAVO VALLE MD Ot V72.63 04/24/2014 TAVO VALLE MD Ot V72.81 04/24/2014 TAVO VALLE MD Ot V72.83 04/24/2014 TORI VICK, TAVO S Ot V74.8 08/03/2014 KEENA, YOSI N Ot 174.9 08/03/2014 KEENA, YOSI N Ot 204.10 08/03/2014 KEENA, YOSI N Ot 585.3 09/06/2014 Ot 786.05 10/20/2014 KEENA, YOSI N Ot 204.10 10/20/2014 KEENA, YOSI N Ot 457.1 10/20/2014 KEENA, YOSI N Ot 682.3 10/20/2014 KEENA, YOSI N Ot V10.3 10/20/2014 KEENA, YOSI N Ot V45.71 10/20/2014 KEENA, JOSEAN N Ot V58.69 10/20/2014 KEENA, YOSI N Ot V87.41 10/31/2014 KEENA, YOSI N Ot 204.10 10/31/2014 KEENA, YOSI N Ot 457.1 10/31/2014 KEENA, YOSI N Ot 682.3 10/31/2014 KEENA, YOSI N Ot V10.3 10/31/2014 KEENA, YOSI N Ot V45.71 10/31/2014 KEENA, YOSI N Ot V58.69 10/31/2014 KEENA, YOSI N Ot V87.41 04/12/2015 LAUREEN VICK, LLUVIA Martínez Ot E78. 2 04/12/2015 LLUVIA GARDUNO MD Ot I10 04/12/2015 LLUVIA GARDUNO MD Ot I25. 10 04/12/2015 LAUREEN VICK, LLUVIA Martínez Ot I65. 23 04/18/2015 LLUVIA GARDUNO MD Ot E78. 2 04/18/2015 LLUVIA GARDUNO MD Ot I10 04/18/2015 LLUVIA GARDUNO MD Ot I25. 10 04/18/2015 LLUVIA GARDUNO MD Ot I65. 23 04/26/2015 LLUVIA GARDUNO MD Ot E78. 2 04/26/2015 LLUVIA GARDUNO MD Ot I10 04/26/2015 LLUVIA GARDUNO MD Ot I25. 10 04/26/2015 LLUVIA GARDUNO MD Ot I65. 23 04/30/2015 LLUVIA GARDUNO MD Ot E78. 2 04/30/2015 LAUREEN VICK, LLUVIA Martínez Ot I10 04/30/2015 LAUREEN VICK, LLUVIA Martínez Ot I25. 10 04/30/2015 LAUREEN VICK, LLUVIA Martínez Ot I65. 23 05/10/2015 MINNIE SELF DO M Ot E66. 9 05/10/2015 CLAIR DO, MINNIE M Ot I10 05/10/2015 CLAIR DO, MINNIE M Ot I25. 10 05/10/2015 CLAIR DO, MINNIE M Ot I44. 7 05/10/2015 CLAIR DO, MINNIE M Ot R41. 3 05/17/2015 CLAIR DO, MINNIE M Ot E66. 9 05/17/2015 CLAIR DO, MINNIE M Ot I10 05/17/2015 CLAIR DO, MINNIE M Ot I25. 10 05/17/2015 CLAIR DO, MINNIE M Ot I44. 7 05/17/2015 CLAIR DO, MINNIE M Ot R41. 3 05/21/2015 CLAIR , MINNIE M Ot G47. 33 OBSTRUCTIVE SLEEP APNEA (ADULT) (PEDIATR 05/22/2015 JIM SHER Ot C91.10 05/22/2015 JIM SHER Ot Z79.899 05/22/2015 JIM SHER Ot Z85.3 05/24/2015 CLAIR DO, MINNIE M Ot E66. 9 05/24/2015 CLAIR DO, MINNIE M Ot I10 05/24/2015 CLAIR DO, MINNIE M Ot I25. 10 05/24/2015 CLAIR DO, MINNIE M Ot I44. 7 05/24/2015 CLAIR DO, MINNIE M Ot R41. 3 05/24/2015 CLAIR DO, MINNIE M Ot E66. 9 05/24/2015 CLAIR DO, MINNIE M Ot I10 05/24/2015 CLAIR DO, MINNIE M Ot I25. 10 05/24/2015 CLAIR DO, MINNIE M Ot I44. 7 05/24/2015 CLAIR DO, MINNIE M Ot R41. 3 06/07/2015 JIM SHERP Ot C91.10 06/07/2015 JIM SHERP Ot Z79.899 06/07/2015 JIM SHER ANESTHESIA ASSISTANT Ot Z85.3 06/14/2015 JIM SHER Ot C50.512 06/14/2015 JIM SHER Ot Z12.31 08/31/2015 MINNIE SELF DO Ot G47. 33 OBSTRUCTIVE SLEEP APNEA (ADULT) (PEDIATR 08/31/2015 MINNIE SELF DO Ot J44. 9 CHRONIC OBSTRUCTIVE PULMONARY DISEASE, U 08/31/2015 MINNIE SELF DO Ot R06. 00 DYSPNEA, UNSPECIFIED 09/09/2015 Ot 272.4 HYPE RLIPIDEMIA NEC/NOS 09/09/2015 Ot V58.69 OTH MED,LT,CURRENT USE 09/12/2015 MINNIE SELF DO Ot G47. 33 OBSTRUCTIVE SLEEP APNEA (ADULT) (PEDIATR 09/12/2015 MINNIE SELF DO Ot J44. 9 CHRONIC OBSTRUCTIVE PULMONARY DISEASE, U 09/12/2015 MINNIE SELF DO Ot R06. 00 DYSPNEA, UNSPECIFIED 10/14/2015 MINNIE SELF DO Ot G47. 33 OBSTRUCTIVE SLEEP APNEA (ADULT) (PEDIATR 10/14/2015 MINNIE SELF DO Ot J44. 9 CHRONIC OBSTRUCTIVE PULMONARY DISEASE, U 10/14/2015 MINNIE SELF DO Ot R06. 00 DYSPNEA, UNSPECIFIED 10/16/2015 MINNIE SELF DO Ot G47. 33 OBSTRUCTIVE SLEEP APNEA (ADULT) (PEDIATR 10/16/2015 MINNIE SELF DO Ot J44. 9 CHRONIC OBSTRUCTIVE PULMONARY DISEASE, U 10/16/2015 MINNIE SELF DO Ot R06. 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9 SELVIN GN NEOPL BREAST NOS 04/10/2016 Ot V76.11 SCR N MAMMO-HIGH RISK PT, MALIGNANT NEOPL 04/10/2016 Ot 204.10 CHR ONIC LYMPHOID LEUKEMIA, 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 04/10/2016 Ot V10.3 HX O F BREAST MALIGNANCY 04/10/2016 Ot 174.9 SELVIN GN NEOPL BREAST NOS 04/10/2016 Ot 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.8 WBC DISEASE NEC 04/10/2016 Ot 401.9 HYPE RTENSION NOS 04/10/2016 Ot 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 04/10/2016 Ot V72.81 [id number] CARDIOVASCULAR 04/10/2016 Ot V74.8 SCRE EN-BACTERIAL DIS NEC 04/10/2016 Ot 204.10 CHR ONIC LYMPHOID LEUKEMIA, 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 04/10/2016 Ot 585.3 UNDERCOATER SATNAM KIDNEY DISEASE, STAGE III (MODER 04/10/2016 Ot V10.3 HX O F BREAST MALIGNANCY 04/10/2016 Ot V45.71 ACQ UIRED ABSENCE OF BREAST AND NIPPLE 04/10/2016 Ot V58.69 OTH MED,LT,CURRENT USE 04/10/2016 Ot 793.89 OTH (ABN) FINDINGS ON RADIOLOGICAL EXAMI 04/10/2016 Ot V10.3 HX O F BREAST MALIGNANCY 04/10/2016 Ot V45.71 ACQ UIRED ABSENCE OF BREAST AND NIPPLE 04/10/2016 Ot V76.11 SCR N MAMMO-HIGH RISK PT, MALIGNANT NEOPL 04/10/2016 Ot 204.10 CHR ONIC LYMPHOID LEUKEMIA, 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 04/10/2016 Ot 585.3 UNDERCOATER SATNAM KIDNEY DISEASE, STAGE III (MODER 04/10/2016 Ot V10.3 HX O F BREAST MALIGNANCY 04/10/2016 Ot V45.71 ACQ UIRED ABSENCE OF BREAST AND NIPPLE 04/10/2016 Ot V58.69 OTH MED,LT,CURRENT USE 04/10/2016 Ot 272.4 HYPE RLIPIDEMIA NEC/NOS 04/10/2016 Ot V58.69 OTH MED,LT,CURRENT USE 04/10/2016 Ot 272.4 HYPE RLIPIDEMIA NEC/NOS 04/10/2016 Ot 401.9 HYPE RTENSION NOS 04/10/2016 Ot 414.00 COR ON ATHEROSCLER NOS TYPE VESSEL, NATIV 04/10/2016 Ot 174.9 SELVIN GN NEOPL BREAST NOS 04/10/2016 Ot 793.89 OTH (ABN) FINDINGS ON RADIOLOGICAL EXAMI 04/10/2016 Ot 174.9 SELVIN GN NEOPL BREAST NOS 04/10/2016 Ot 288.61 LYM PHOCYTOSIS (SYMPTOMATIC) 04/10/2016 Ot 272.4 HYPE RLIPIDEMIA NEC/NOS 04/10/2016 Ot 414.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 04/10/2016 Ot 288.61 LYM PHOCYTOSIS (SYMPTOMATIC) 04/10/2016 Ot V10.3 HX O F BREAST MALIGNANCY 04/10/2016 YOSI BRINK Mary Ot 174.9 MALIGN NEOPL BREAST NOS 04/10/2016 TORI VICK, TAVO Alexander Ot 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 O CEREBRAL IN 04/10/2016 TORI VICK, TAVO Alexander Ot V72.63 PRE-PROCEDURAL LABORATORY EXAMINATION 04/10/2016 TORI VICK, TAVO Alexander Ot V72.81 IVUF-[id number]-[id number] CARDIOVASCULAR 04/10/2016 TORI VICK, TAVO Alexander Ot V72.83 EXAM PRE-OPERATIVE NEC 04/10/2016 TORI VICK, TAVO Alexander Ot V74.8 SCREEN-BACTERIAL DIS NEC 04/10/2016 ROQUE VICK, CLIVE Jack Ot 793.8 0 UNSPEC ABNORMAL MAMMOGRAM 04/10/2016 JIM SHER ANESTHESIA ASSISTANT Ot 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, 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 04/10/2016 JIM SHER ANESTHESIA ASSISTANT Ot 368.9 VISUAL DISTURBANCE NOS 04/10/2016 JIM SHERP Ot 585.3 CHRONIC KIDNEY DISEASE, STAGE III (MODER 04/10/2016 JIM SHER ANESTHESIA ASSISTANT Ot V10.3 HX OF BREAST MALIGNANCY 04/10/2016 JIM SHRE ANESTHESIA ASSISTANT Ot V45.71 ACQUIRED ABSENCE OF BREAST AND NIPPLE 04/10/2016 JIM SHER Ot V58.69 OTH MED,LT,CURRENT USE 04/10/2016 JIM SHERP Ot V87.41 PERSONAL HISTORY OF ANTINEOPLASTIC CHEMO 04/10/2016 LLUVIA GARDUNO MD Ot 272. 4 HYPERLIPIDEMIA NEC/NOS 04/10/2016 LLUVIA GARDUNO MD Ot 414. 01 CORONARY ATHEROSCLEROSIS OF [place] CORON 04/10/2016 TORI VICK, TAVO Alexander Ot 790.29 OTHER ABNORMAL GLUCOSE 04/10/2016 TAVO VALLE MD Ot 682.2 CELLULITIS OF TRUNK 04/10/2016 TAVO VALLE MD Ot V72.84 EXAM PRE-OPERATIVE NOS 04/10/2016 LLUVIA GARDUNO MD Ot 272. 4 HYPERLIPIDEMIA NEC/NOS 04/10/2016 LLUVIA GARDUNO MD Ot 401. 9 HYPERTENSION NOS 04/10/2016 LLUVIA GARDUNO MD Ot 414. 00 CORON ATHEROSCLER NOS TYPE VESSEL, NATIV 04/10/2016 LLUVIA GARDUNO MD Ot 786. 50 CHEST PAIN NOS 04/10/2016 LLUVIA GARDUNO MD Ot 272. 4 HYPERLIPIDEMIA NEC/NOS 04/10/2016 LLUVIA GARDUNO MD Ot 305. 1 TOBACCO USE DISORDER 04/10/2016 LLUVIA GARDUNO MD Ot 401. 9 HYPERTENSION NOS 04/10/2016 LLUVIA GARDUNO MD Ot 414. 00 CORON ATHEROSCLER NOS TYPE VESSEL, NATIV 04/10/2016 LLUVIA GARDUNO MD Ot 433. 10 CAROTID ARTERY OCCLUSION W O CEREBRAL IN 04/10/2016 LLUVIA GARDUNO MD Ot 786. 50 CHEST PAIN NOS 04/10/2016 YOSI BRINK Ot 174.9 MALIGN NEOPL BREAST NOS 04/10/2016 YOSI BRINK Ot 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, 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 04/10/2016 YOSI BRINK Ot 585.3 CHRONIC KIDNEY DISEASE, STAGE III (MODER 04/10/2016 LLUVIA GARDUNO MD Ot 272. 4 HYPERLIPIDEMIA NEC/NOS 04/10/2016 LLUVIA GARDUNO MD Ot 401. 9 HYPERTENSION NOS 04/10/2016 LLUVIA GARDUNO MD Ot 414. 00 CORON ATHEROSCLER NOS TYPE VESSEL, NATIV 04/10/2016 LLUVIA GARDUNO MD Ot 433. 10 CAROTID ARTERY OCCLUSION W O CEREBRAL IN 04/10/2016 LLUVIA GARDUNO MD Ot 786. 09 RESPIRATORY ABNORM NEC 04/10/2016 JIM SHER Ot 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, 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 04/10/2016 JIM SHERP Ot 457.1 OTHER LYMPHEDEMA 04/10/2016 JIM SHER ANESTHESIA ASSISTANT Ot 682.3 CELLULITIS OF ARM 04/10/2016 JIM SHER ANESTHESIA ASSISTANT Ot V10.3 HX OF BREAST MALIGNANCY 04/10/2016 JIM SHERP Ot V45.71 ACQUIRED ABSENCE OF BREAST AND NIPPLE 04/10/2016 JIM SHERP Ot V58.69 OTH MED,LT,CURRENT USE 04/10/2016 JIM SHERP Ot V87.41 PERSONAL HISTORY OF ANTINEOPLASTIC CHEMO 04/10/2016 TAVO VALLE MD Ot 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 O CEREBRAL IN 04/10/2016 TAVO VALLE MD Ot 433.30 MULT BILTRAL ARTERY OCCLUSION WO CEREBRA 04/10/2016 TAVO VALLE MD Ot 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 O CEREBRAL IN 04/10/2016 TAVO VALLE MD Ot V72.63 PRE-PROCEDURAL LABORATORY EXAMINATION 04/10/2016 TAVO VALLE MD Ot V72.81 [id number]-[id number] CARDIOVASCULAR 04/10/2016 TAVO VALLE MD Ot V72.83 EXAM PRE-OPERATIVE NEC 04/10/2016 TAVO VALLE MD Ot V74.8 SCREEN-BACTERIAL DIS NEC 04/10/2016 CHRISTOSJIM ANESTHESIA ASSISTANT Ot 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, 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 04/10/2016 SHER JIM Catherine ANESTHESIA ASSISTANT Ot 457.1 OTHER LYMPHEDEMA 04/10/2016 SHERJIM Alexander ANESTHESIA ASSISTANT Ot 682.3 CELLULITIS OF ARM 04/10/2016 SHERJIM Alexander ANESTHESIA ASSISTANT Ot V10.3 HX OF BREAST MALIGNANCY 04/10/2016 SHERJIM Alexander ANESTHESIA ASSISTANT Ot V45.71 ACQUIRED ABSENCE OF BREAST AND NIPPLE 04/10/2016 SHERJIM Alexander ANESTHESIA ASSISTANT Ot V58.69 OTH MED,LT,CURRENT USE 04/10/2016 SHERJIM Alexander ANESTHESIA ASSISTANT Ot V87.41 PERSONAL HISTORY OF ANTINEOPLASTIC CHEMO 04/10/2016 CHRISTOS JIM Alexander ANESTHESIA ASSISTANT Ot 174.9 MALIGN NEOPL BREAST NOS 04/10/2016 SHERJIM Alexander ANESTHESIA ASSISTANT Ot V76.12 OTH SCREEN MAMMO-MALIGN NEOPLASM OF [place] 04/10/2016 Ot 786.05 ELZBIETA RTNESS OF BREATH 04/10/2016 YOSI BRINK Ot 204.10 [...] ANTINEOPLASTIC CHEMO 04/10/2016 LLUVIA GARDUNO MD Ot E78. 2 MIXED HYPERLIPIDEMIA 04/10/2016 LLUVIA GARDUNO MD Ot I10 ESSENTIAL (PRIMARY) HYPERTENSION 04/10/2016 LLUVIA GARDUNO MD Ot I25. 10 ATHSCL HEART DISEASE OF [place] CORONARY 04/10/2016 LLUVIA GARDUNO MD Ot I65. 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 04/10/2016 LLUVIA GARDUNO MD Ot E78. 2 MIXED HYPERLIPIDEMIA 04/10/2016 LLUVIA GARDUNO MD Ot I10 ESSENTIAL (PRIMARY) HYPERTENSION 04/10/2016 LLUVIA GARDUNO MD Ot I25. 10 ATHSCL HEART DISEASE OF [place] CORONARY 04/10/2016 LLUVIA GARDUNO MD Ot I65. 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 04/10/2016 JIM SHER Ot 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 04/10/2016 JIM SHER Ot Z79.899 OTHER LONGTERM (CURRENT) DRUG THERAPY 04/10/2016 JIM SHER Ot Z85.3 PERSONAL HISTORY OF MALIGNANT NEOPLASM O 04/10/2016 MINNIE SELF DO Ot E66. 9 OBESITY, UNSPECIFIED 04/10/2016 MINNIE SELF DO Ot I10 ESSENTIAL (PRIMARY) HYPERTENSION 04/10/2016 MINNIE SELF DO Ot I25. 10 ATHSCL HEART DISEASE OF [place] CORONARY 04/10/2016 MINNIE SELF DO Ot I44. 7 LEFT BUNDLE-BRANCH BLOCK, UNSPECIFIED 04/10/2016 MINNIE SELF DO Ot R41. 3 OTHER AMNESIA 04/10/2016 MINNIE SELF DO Ot E66. 9 OBESITY, UNSPECIFIED 04/10/2016 MINNIE SELF DO Ot I10 ESSENTIAL (PRIMARY) HYPERTENSION 04/10/2016 MINNIE SELF DO Ot I25. 10 ATHSCL HEART DISEASE OF [place] CORONARY 04/10/2016 MINNIE SELF DO Ot I44. 7 LEFT BUNDLE-BRANCH BLOCK, UNSPECIFIED 04/10/2016 MINNIE SELF DO Ot R41. 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 33 OBSTRUCTIVE SLEEP APNEA (ADULT) (PEDIATR 04/10/2016 MINNIE SELF DO Ot J44. 9 CHRONIC OBSTRUCTIVE PULMONARY DISEASE, U 04/10/2016 MINNIE SELF DO Ot R06. 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 2 MIXED HYPERLIPIDEMIA 04/11/2016 LLUVIA GARDUNO MD Ot G47. 33 OBSTRUCTIVE SLEEP APNEA (ADULT) (PEDIATR 04/11/2016 LLUVIA GARDUNO MD Ot I10 ESSENTIAL (PRIMARY) HYPERTENSION 04/11/2016 LLUVIA GARDUNO MD Ot I25. 10 ATHSCL HEART DISEASE OF [place] CORONARY 04/11/2016 LLUVIA GARDUNO MD Ot R07. 9 CHEST PAIN, UNSPECIFIED 05/03/2016 MINNIE SELF DO Ot G47. 33 OBSTRUCTIVE SLEEP APNEA (ADULT) (PEDIATR 05/03/2016 MINNIE SELF DO, Ot J44. 9 CHRONIC OBSTRUCTIVE PULMONARY DISEASE, U 05/03/2016 MINNIE SELF DO Ot R06. 00 DYSPNEA, UNSPECIFIED 05/06/2016 MAYTE BROWER MD Ot 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 05/06/2016 MAYTE BROWER MD Ot E78.00 PURE HYPERCHOLESTEROLEMIA, UNSPECIFIED 05/06/2016 MAYTE BROWER MD Ot E86.0 DEHYDRATION 05/06/2016 MAYTE BROWER MD Ot F32.9 MAJOR DEPRESSIVE DISORDER, SINGLE EPISOD 05/06/2016 MAYTE BROWER MD Ot F41.9 ANXIETY DISORDER, UNSPECIFIED 05/06/2016 MAYTE BROWER MD Ot G47.33 OBSTRUCTIVE SLEEP APNEA (ADULT) (PEDIATR 05/06/2016 MAYTE BROWER MD Ot I10 ESSENTIAL (PRIMARY) HYPERTENSION 05/06/2016 MAYTE BROWER MD Ot I25.10 ATHSCL HEART DISEASE OF [place] CORONARY 05/06/2016 MAYTE BROWER MD Ot I89.0 [...] OF MUSC/TEND AT LOWER LEG LE 05/06/2016 MAYTE BROWER MD Ot W19.XXXA UNSPECIFIED FALL, INITIAL ENCOUNTER 05/06/2016 MAYTE BROWER MD Ot Y92.[address] 05/06/2016 MAYTE BROWER MD Ot Z85.3 PERSONAL HISTORY OF MALIGNANT NEOPLASM O 05/08/2016 LLUVIA GARDUNO MD Ot E78. 2 MIXED HYPERLIPIDEMIA 05/08/2016 LLUVIA GARDUNO MD Ot G47. 33 OBSTRUCTIVE SLEEP APNEA (ADULT) (PEDIATR 05/08/2016 LLUVIA GARDUNO MD Ot I10 ESSENTIAL (PRIMARY) HYPERTENSION 05/08/2016 LLUVIA GARDUNO MD Ot I25. 10 ATHSCL HEART DISEASE OF [place] CORONARY 05/08/2016 LLUVIA GARDUNO MD Ot R07. 9 CHEST PAIN, UNSPECIFIED 05/14/2016 LLUVIA GARDUNO MD Ot E78. 2 MIXED HYPERLIPIDEMIA 05/14/2016 LLUVIA GARDUNO MD Ot G47. 33 OBSTRUCTIVE SLEEP APNEA (ADULT) (PEDIATR 05/14/2016 LLUVIA GARDUNO MD Ot I10 ESSENTIAL (PRIMARY) HYPERTENSION 05/14/2016 LLUVIA GARDUNO MD Ot I25. 10 ATHSCL HEART DISEASE OF [place] CORONARY 05/14/2016 LLUVIA GARDUNO MD Ot R07. 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 05/29/2016 JIM SHERP Ot Z12.31 ENCNTR SCREEN MAMMOGRAM FOR MALIGNANT NE 06/17/2016 JIM SHER Ot 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 06/17/2016 JIM SHER ANESTHESIA ASSISTANT Ot Z12.31 ENCNTR SCREEN MAMMOGRAM FOR MALIGNANT NE 07/01/2016 YOSI BRINK N Ot 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 07/01/2016 YOSI BRINK N Ot Z79.899 OTHER LONGTERM (CURRENT) DRUG THERAPY 07/01/2016 KEENAYOSI RUIZ N Ot Z85.3 PERSONAL HISTORY OF MALIGNANT NEOPLASM O 07/04/2016 YOSI BRINK N Ot 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 07/04/2016 YOSI BRINK N Ot Z79.899 OTHER LONGTERM (CURRENT) DRUG THERAPY 07/04/2016 KEENAYOSI RUIZ N Ot Z85.3 PERSONAL HISTORY OF MALIGNANT NEOPLASM O 07/28/2016 YOSI BRINK N Ot 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 07/28/2016 YOSI BRINK N Ot Z79.899 OTHER LONGTERM (CURRENT) DRUG THERAPY 07/28/2016 YOSI BRINK N Ot Z85.3 PERSONAL HISTORY OF MALIGNANT NEOPLASM O 07/29/2016 YOSI BRINK N Ot 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 07/29/2016 YOSI BRINK N Ot Z79.899 OTHER LONGTERM (CURRENT) DRUG THERAPY 07/29/2016 YOSI BRINK N Ot Z85.3 PERSONAL HISTORY OF MALIGNANT NEOPLASM O 08/13/2016 RANDY ALVARADO MD, Ot J44 .9 CHRONIC OBSTRUCTIVE PULMONARY DISEASE, U 08/13/2016 RANDY ALVARADO MD, Ot K57.90 DVRTCLOS OF INTEST, PART UNSP, W/O PERF 08/27/2016 CLIVE NEVAREZ MD, Ot C91.1 0 CHRONIC LYMPHOCYTIC LEUK OF B-CELL TYPE 08/27/2016 CLIVE NEVAREZ MD, Ot 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, UNSPECIFI 09/01/2016 CLIVE NEVAREZ MD, Ot C91.1 0 CHRONIC LYMPHOCYTIC LEUK OF B-CELL TYPE 09/01/2016 CLIVE NEVAREZ MD, Ot 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, UNSPECIFI 09/15/2016 RANDY ALVARADO MD, Ot J44 .9 CHRONIC OBSTRUCTIVE PULMONARY DISEASE, U 09/15/2016 RANDY ALVARADO MD, Ot7.90 DVRTCLOS OF INTEST, PART UNS, W/O PERF 09/22/2016 ROQUE VICK, CLIVE Jack Ot C91.1 0 CHRONIC LYMPHOCYTIC LEUK OF B-CELL TYPE 09/22/2016 CLIVE NEVAREZ MD Ot 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, UNSPECIFI 10/10/2016 CHRISTIANO VICK, RANDY Rosas Ot J44 .9 CHRONIC OBSTRUCTIVE PULMONARY DISEASE, U 10/10/2016 RANDY ALVARADO MD Ot K57.90 DVRTCLOS OF INTEST, PART UNS, W/O PERF 10/28/2016 YOSI BRINK Ot 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 10/28/2016 YOSI BRINK Ot Z79.899 OTHER LONGTERM (CURRENT) DRUG THERAPY 10/28/2016 YOSI BRINK Ot Z85.3 PERSONAL HISTORY OF MALIGNANT NEOPLASM O 12/01/2016 YOSI BRINK Ot 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 12/01/2016 YOSI BRINK Ot E78.00 PURE HYPERCHOLESTEROLEMIA, UNSPECIFIED 12/01/2016 YOSI BRINK N Ot E83.42 HYPOMAGNESEMIA 12/01/2016 YOSI BRINK N Ot F03.90 UNSPECIFIED DEMENTIA WITHOUT BEHAVIORAL 12/01/2016 YOSI BRINK Ot F41.9 ANXIETY DISORDER, UNSPECIFIED 12/01/2016 YOSI BRINK N Ot G25.81 RESTLESS LEGS SYNDROME 12/01/2016 YOSI BRINK Ot I12.9 HYPERTENSIVE CHRONIC KIDNEY DISEASE W ST 12/01/2016 YOSI BRINK Ot I25.10 ATHSCL HEART DISEASE OF [place] CORONARY 12/01/2016 YOSI BRINK N Ot J44.9 CHRONIC OBSTRUCTIVE PULMONARY DISEASE, U 12/01/2016 YOSI BRINK N Ot N18.3 CHRONIC KIDNEY DISEASE, STAGE 3 (MODERAT 12/01/2016 YOSI BRINK Ot Z79.899 OTHER EMBLEM FUSER TENDER (CURRENT) DRUG THERAPY 12/01/2016 YOSI BRINK N Ot Z85.3 PERSONAL HISTORY OF MALIGNANT NEOPLASM O 12/01/2016 YOSI BRINK Ot Z87.891 PERSONAL HISTORY OF NICOTINE DEPENDENCE 12/01/2016 KEENA, BOBAN N Ot Z90.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 12/01/2016 YOSI BRINK Mary Ot Z92.21 PERSONAL HISTORY OF ANTINEOPLASTIC CHEMO 12/18/2016 YOSI BRINK Mary Ot 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 12/18/2016 YOSI BRINK Mary Ot E78.00 PURE HYPERCHOLESTEROLEMIA, UNSPECIFIED 12/18/2016 KEENA JOSEROSIBEL Mary Ot E83.42 HYPOMAGNESEMIA 12/18/2016 KEENA YOSI Hernandez Ot F03.90 UNSPECIFIED DEMENTIA WITHOUT BEHAVIORAL 12/18/2016 KEENA JOSEROSIBEL Mary Ot F41.9 ANXIETY DISORDER, UNSPECIFIED 12/18/2016 KEENA YOSI Hernandez Ot G25.81 RESTLESS LEGS SYNDROME 12/18/2016 KEENAYOSI Ot I12.9 HYPERTENSIVE CHRONIC KIDNEY DISEASE W ST 12/18/2016 KEENA JOSEROSIBEL Mary Ot I25.10 ATHSCL HEART DISEASE OF [place] CORONARY 12/18/2016 KEENA, YOSI Hernandez Ot J44.9 CHRONIC OBSTRUCTIVE PULMONARY DISEASE, U 12/18/2016 KEENA JOSEROSIBEL Mary Ot N18.3 CHRONIC KIDNEY DISEASE, STAGE 3 (MODERAT 12/18/2016 YOSI BRINK Mary Ot Z79.899 OTHER LONGTERM (CURRENT) DRUG THERAPY 12/18/2016 KEENA YOSI Hernandez Ot Z85.3 PERSONAL HISTORY OF MALIGNANT NEOPLASM O 12/18/2016 YOSI BRINK Mary Ot Z87.891 PERSONAL HISTORY OF NICOTINE DEPENDENCE 12/18/2016 YOSI BRINK Mary Ot Z90.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 12/18/2016 KEENA JOSEROSIBEL Mary Ot Z92.21 PERSONAL HISTORY OF ANTINEOPLASTIC CHEMO 01/25/2017 YOSI BRINK Mary Ot 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 01/25/2017 YOSI BRINK Mary Ot E78.00 PURE HYPERCHOLESTEROLEMIA, UNSPECIFIED 01/25/2017 KEENA JOSEROSIBEL Mary Ot E83.42 HYPOMAGNESEMIA 01/25/2017 KEENA JOSEROSIBEL Mary Ot F03.90 UNSPECIFIED DEMENTIA WITHOUT BEHAVIORAL 01/25/2017 KEENA JOSEROSIBEL Mary Ot F41.9 ANXIETY DISORDER, UNSPECIFIED 01/25/2017 KEENAYOSI Ot G25.81 RESTLESS LEGS SYNDROME 01/25/2017 KEENAYOSI Ot I12.9 HYPERTENSIVE CHRONIC KIDNEY DISEASE W ST 01/25/2017 KEENA YOSI N Ot I25.10 ATHSCL HEART DISEASE OF [place] CORONARY 01/25/2017 KEENA YOSI Hernandez Ot J44.9 CHRONIC OBSTRUCTIVE PULMONARY DISEASE, U 01/25/2017 KEENA YOSI Hernandez Ot N18.3 CHRONIC KIDNEY DISEASE, STAGE 3 (MODERAT 01/25/2017 KEENA YOSI Hernandez Ot Z79.899 OTHER EMBLEM FUSER TENDER (CURRENT) DRUG THERAPY 01/25/2017 KEENA YOSI Hernandez Ot Z85.3 PERSONAL HISTORY OF MALIGNANT NEOPLASM O 01/25/2017 KEENA, YOSI Hernandez Ot Z87.891 PERSONAL HISTORY OF NICOTINE DEPENDENCE 01/25/2017 KEENAYOSI Ot Z90.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 01/25/2017 KEENAYOSI Ot Z92.21 PERSONAL HISTORY OF ANTINEOPLASTIC CHEMO 04/12/2017 CLIVE NEVAREZ MD Ot M79.6 44 PAIN IN RIGHT FINGER(S) 04/12/2017 CLIVE NEVAREZ MD Ot M79.6 45 PAIN IN LEFT FINGER(S) 04/28/2017 CLIVE NEVAREZ MD Ot M79.6 44 PAIN IN RIGHT FINGER(S) 04/28/2017 CLIVE NEVAREZ MD Ot M79.6 45 PAIN IN LEFT FINGER(S) 04/30/2017 KEENA YOIS Hernandez Ot 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 04/30/2017 KEENAYOSI N Ot E78.00 PURE HYPERCHOLESTEROLEMIA, UNSPECIFIED 04/30/2017 KEENAYOSI Ot E83.42 HYPOMAGNESEMIA 04/30/2017 KEENAYOSI Ot F03.90 UNSPECIFIED DEMENTIA WITHOUT BEHAVIORAL 04/30/2017 KEENAYOSI Ot F41.9 ANXIETY DISORDER, UNSPECIFIED 04/30/2017 YOSI BRINK Ot G25.81 RESTLESS LEGS SYNDROME 04/30/2017 YOSI BRINK Ot I12.9 HYPERTENSIVE CHRONIC KIDNEY DISEASE W ST 04/30/2017 KEENAYOSI N Ot I25.10 ATHSCL HEART DISEASE OF [place] CORONARY 04/30/2017 KEENA, YOSI Hernandez Ot J44.9 CHRONIC OBSTRUCTIVE PULMONARY DISEASE, U 04/30/2017 KEENAYOSI Ot N18.3 CHRONIC KIDNEY DISEASE, STAGE 3 (MODERAT 04/30/2017 KEENA YOSI Hernandez Ot Z79.899 OTHER EMBLEM FUSER TENDER (CURRENT) DRUG THERAPY 04/30/2017 YOSI BRINK Ot Z85.3 PERSONAL HISTORY OF MALIGNANT NEOPLASM O 04/30/2017 YOSI BRINK Ot Z87.891 PERSONAL HISTORY OF NICOTINE DEPENDENCE 04/30/2017 YOSI BRINK Ot Z90.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 04/30/2017 YOSI BRINK Ot Z92.21 PERSONAL HISTORY OF ANTINEOPLASTIC CHEMO 05/14/2017 ROQUE VICK, CLIVE Jack Ot M79.6 44 PAIN IN RIGHT FINGER(S) 05/14/2017 CLIVE NEVAREZ MD Ot M79.6 45 PAIN IN LEFT FINGER(S) 05/20/2017 JIM SHER Ot Z12.31 ENCNTR SCREEN MAMMOGRAM FOR MALIGNANT NE 05/20/2017 LEONELA JAMES Ot E78.2 MIXED HYPERLIPIDEMIA 05/20/2017 LEONELA JAMES Ot I10 ESSENTIAL (PRIMARY) HYPERTENSION 05/20/2017 LEONELA JAMES Ot I25.10 ATHSCL HEART DISEASE OF [place] CORONARY 05/20/2017 LEONELA JAMES Ot I65.23 OCCLUSION [...] BRINK Ot I25.10 ATHSCL HEART DISEASE OF [place] CORONARY 05/22/2017 YOSI BRINK Ot J44.9 CHRONIC OBSTRUCTIVE PULMONARY DISEASE, U 05/22/2017 YOSI BRINK N Ot N18.3 CHRONIC KIDNEY DISEASE, STAGE 3 (MODERAT 05/22/2017 KEENA, YOSI Hernandez Ot Z79.899 OTHER EMBLEM FUSER TENDER (CURRENT) DRUG THERAPY 05/22/2017 KEENA, YOSI Hernandez Ot Z85.3 PERSONAL HISTORY OF MALIGNANT NEOPLASM O 05/22/2017 KEENA YOSI Hernandez Ot Z87.891 PERSONAL HISTORY OF NICOTINE DEPENDENCE 05/22/2017 KEENAYOSI Ot Z90.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 05/22/2017 KEENA YOSI Hernandez Ot Z92.21 PERSONAL HISTORY OF ANTINEOPLASTIC CHEMO 05/28/2017 SHERJIM Alexander S ANESTHESIA ASSISTANT Ot Z12.31 ENCNTR SCREEN MAMMOGRAM FOR MALIGNANT NE 05/28/2017 SHERJIM Alexander ANESTHESIA ASSISTANT Ot Z85.3 PERSONAL HISTORY OF MALIGNANT NEOPLASM O 05/28/2017 SHERJIM Alexander S ANESTHESIA ASSISTANT Ot Z90.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 06/22/2017 SHERJIM Alexander S ANESTHESIA ASSISTANT Ot Z12.31 ENCNTR SCREEN MAMMOGRAM FOR MALIGNANT NE 06/22/2017 SHERJIM Alexander S ANESTHESIA ASSISTANT Ot Z85.3 PERSONAL HISTORY OF MALIGNANT NEOPLASM O 06/22/2017 SHERJIM S ANESTHESIA ASSISTANT Ot Z90.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 07/27/2017 YOSI BRINK Ot 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 07/27/2017 KEENAYOSI Ot E78.00 PURE HYPERCHOLESTEROLEMIA, UNSPECIFIED 07/27/2017 YOSI BRINK Ot E83.42 HYPOMAGNESEMIA 07/27/2017 YOSI BRINK Ot F03.90 UNSPECIFIED DEMENTIA WITHOUT BEHAVIORAL 07/27/2017 YOSI BRINK Ot F41.9 ANXIETY DISORDER, UNSPECIFIED 07/27/2017 YOSI BRINK Ot G25.81 RESTLESS LEGS SYNDROME 07/27/2017 YOSI BRINK Ot I12.9 HYPERTENSIVE CHRONIC KIDNEY DISEASE W ST 07/27/2017 YOSI BRINK Ot I25.10 ATHSCL HEART DISEASE OF [place] CORONARY 07/27/2017 YOSI BRINK Ot J44.9 CHRONIC OBSTRUCTIVE PULMONARY DISEASE, U 07/27/2017 YOSI BRINK Ot N18.3 CHRONIC KIDNEY DISEASE, STAGE 3 (MODERAT 07/27/2017 YOSI BRINK N Ot Z79.899 OTHER EMBLEM FUSER TENDER (CURRENT) DRUG THERAPY 07/27/2017 YOSI BRINK N Ot Z85.3 PERSONAL HISTORY OF MALIGNANT NEOPLASM O 07/27/2017 YOSI BRINK N Ot Z87.891 PERSONAL HISTORY OF NICOTINE DEPENDENCE 07/27/2017 YOSI BRINK N Ot Z90.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 07/27/2017 KEENA JOSEROSIBEL Mary Ot Z92.21 PERSONAL HISTORY OF ANTINEOPLASTIC CHEMO 07/28/2017 YOSI BRINK N Ot 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 07/28/2017 KEENA YOSI Hernandez Ot E78.00 PURE HYPERCHOLESTEROLEMIA, UNSPECIFIED 07/28/2017 KEENA YOSI N Ot E83.42 HYPOMAGNESEMIA 07/28/2017 KEENA JOSEROSIBEL Mary Ot F03.90 UNSPECIFIED DEMENTIA WITHOUT BEHAVIORAL 07/28/2017 KEENA YOSI Hernandez Ot F41.9 ANXIETY DISORDER, UNSPECIFIED 07/28/2017 KEENA JOSEROSIBEL N Ot G25.81 RESTLESS LEGS SYNDROME 07/28/2017 KEENA JOSEROSIBEL N Ot I12.9 HYPERTENSIVE CHRONIC KIDNEY DISEASE W ST 07/28/2017 KEENA, JOSEROSIBEL N Ot I25.10 ATHSCL HEART DISEASE OF [place] CORONARY 07/28/2017 YOSI BRINK Mary Ot J44.9 CHRONIC OBSTRUCTIVE PULMONARY DISEASE, U 07/28/2017 YOSI BRINK N Ot N18.3 CHRONIC KIDNEY DISEASE, STAGE 3 (MODERAT 07/28/2017 KEENA JOSEROSIBEL N Ot Z79.899 OTHER EMBLEM FUSER TENDER (CURRENT) DRUG THERAPY 07/28/2017 YOSI BRINK N Ot Z85.3 PERSONAL HISTORY OF MALIGNANT NEOPLASM O 07/28/2017 YOSI BRINK N Ot Z87.891 PERSONAL HISTORY OF NICOTINE DEPENDENCE 07/28/2017 KEENA, JOSEROSIBEL N Ot Z90.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 07/28/2017 KEENA JOSEROSIBEL N Ot Z92.21 PERSONAL HISTORY OF ANTINEOPLASTIC CHEMO 08/20/2017 Ot 793.89 OTH (ABN) FINDINGS ON RADIOLOGICAL EXAMI 08/20/2017 Ot V10.3 HX O F BREAST MALIGNANCY 08/20/2017 Ot V45.71 ACQ UIRED ABSENCE OF BREAST AND NIPPLE 08/20/2017 Ot V76.11 SCR N MAMMO-HIGH RISK PT, MALIGNANT NEOPL 08/20/2017 Ot 204.10 CHR ONIC LYMPHOID LEUKEMIA, 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 08/20/2017 Ot 585.3 UNDERCOATER SATNAM KIDNEY DISEASE, STAGE III (MODER 08/20/2017 Ot V10.3 HX O F BREAST MALIGNANCY 08/20/2017 Ot V45.71 ACQ UIRED ABSENCE OF BREAST AND NIPPLE 08/20/2017 Ot V58.69 OTH MED,LT,CURRENT USE 08/20/2017 Ot 272.4 HYPE RLIPIDEMIA NEC/NOS 08/20/2017 Ot V58.69 OTH MED,LT,CURRENT USE 08/20/2017 Ot 272.4 HYPE RLIPIDEMIA NEC/NOS 08/20/2017 Ot 401.9 HYPE RTENSION NOS 08/20/2017 Ot 414.00 COR ON ATHEROSCLER NOS TYPE VESSEL, NATIV 08/20/2017 Ot 174.9 SELVIN GN NEOPL BREAST NOS 08/20/2017 Ot 793.89 OTH (ABN) FINDINGS ON RADIOLOGICAL EXAMI 08/20/2017 Ot 174.9 SELVIN GN NEOPL BREAST NOS 08/20/2017 Ot 288.61 LYM PHOCYTOSIS (SYMPTOMATIC) 08/20/2017 Ot 272.4 HYPE RLIPIDEMIA NEC/NOS 08/20/2017 Ot 414.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 08/20/2017 Ot 288.61 LYM PHOCYTOSIS (SYMPTOMATIC) 08/20/2017 Ot V10.3 HX O F BREAST MALIGNANCY 08/20/2017 YOSI BRINK Ot 174.9 MALIGN NEOPL BREAST NOS 08/20/2017 TORI VICK, TAVO Alexander Ot 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 O CEREBRAL IN 08/20/2017 TORI VICK, TAVO Alexander Ot V72.63 PRE-PROCEDURAL LABORATORY EXAMINATION 08/20/2017 TAVO VALLE MD Ot V72.81 [id number]-KIH-YEXKALMHM CARDIOVASCULAR 08/20/2017 TAVO VALLE MD Ot V72.83 EXAM PRE-OPERATIVE NEC 08/20/2017 TAVO VALLE MD Ot V74.8 SCREEN-BACTERIAL DIS NEC 08/20/2017 ROQUE VICK, CLIVE Jack Ot 793.8 0 UNSPEC ABNORMAL MAMMOGRAM 08/20/2017 SHERJIM ANESTHESIA ASSISTANT Ot 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, 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 08/20/2017 SHERJIM Alexander ANESTHESIA ASSISTANT Ot 368.9 VISUAL DISTURBANCE NOS 08/20/2017 SHERJIM Alexander ANESTHESIA ASSISTANT Ot 585.3 CHRONIC KIDNEY DISEASE, STAGE III (MODER 08/20/2017 JIM SHER ANESTHESIA ASSISTANT Ot V10.3 HX OF BREAST MALIGNANCY 08/20/2017 SHERJIM Alexander ANESTHESIA ASSISTANT Ot V45.71 ACQUIRED ABSENCE OF BREAST AND NIPPLE 08/20/2017 SHERJIM Alexander ANESTHESIA ASSISTANT Ot V58.69 OTH MED,LT,CURRENT USE 08/20/2017 SHERJIM Alexander ANESTHESIA ASSISTANT Ot V87.41 PERSONAL HISTORY OF ANTINEOPLASTIC CHEMO 08/20/2017 LLUVIA GARDUNO MD Ot 272. 4 HYPERLIPIDEMIA NEC/NOS 08/20/2017 LLUVIA GARDUNO MD Ot 414. 01 CORONARY ATHEROSCLEROSIS OF [place] CORON 08/20/2017 TORI VICK, TAVO S Ot 790.29 OTHER ABNORMAL GLUCOSE 08/20/2017 TORI VICK, TAVO S Ot 682.2 CELLULITIS OF TRUNK 08/20/2017 TAVO VALLE MD S Ot V72.84 EXAM PRE-OPERATIVE NOS 08/20/2017 LLUVIA GARDUNO MD Ot 272. 4 HYPERLIPIDEMIA NEC/NOS 08/20/2017 LLUVIA GARDUNO MD Ot 401. 9 HYPERTENSION NOS 08/20/2017 LLUVIA GARDUNO MD Ot 414. 00 CORON ATHEROSCLER NOS TYPE VESSEL, NATIV 08/20/2017 LLUVIA GARDUNO MD Ot 786. 50 CHEST PAIN NOS 08/20/2017 LLUVIA GARDUNO MD Ot 272. 4 HYPERLIPIDEMIA NEC/NOS 08/20/2017 LLUVIA GARDUNO MD Ot 305. 1 TOBACCO USE DISORDER 08/20/2017 LLUVIA GARDUNO MD Ot 401. 9 HYPERTENSION NOS 08/20/2017 LLUVIA GARDUNO MD Ot 414. 00 CORON ATHEROSCLER NOS TYPE VESSEL, NATIV 08/20/2017 LLUVIA GARDUNO MD Ot 433. 10 CAROTID ARTERY OCCLUSION W O CEREBRAL IN 08/20/2017 LLUVIA GARDUNO MD Ot 786. 50 CHEST PAIN NOS 08/20/2017 YOSI BRINK Ot 174.9 MALIGN NEOPL BREAST NOS 08/20/2017 YOSI BRINK Ot 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, 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 08/20/2017 KEENAYOSI RUIZ Mary Ot 585.3 CHRONIC KIDNEY DISEASE, STAGE III (MODER 08/20/2017 LLUVIA GARDUNO MD Ot 272. 4 HYPERLIPIDEMIA NEC/NOS 08/20/2017 LLUVIA GARDUNO MD Ot 401. 9 HYPERTENSION NOS 08/20/2017 LLUVIA GARDUNO MD Ot 414. 00 CORON ATHEROSCLER NOS TYPE VESSEL, NATIV 08/20/2017 LLUVIA GARDUNO MD Ot 433. 10 CAROTID ARTERY OCCLUSION W O CEREBRAL IN 08/20/2017 LLUVIA GARDUNO MD Ot 786. 09 RESPIRATORY ABNORM NEC 08/20/2017 JIM SHERP Ot 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, 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 08/20/2017 JIM SHERP Ot 457.1 OTHER LYMPHEDEMA 08/20/2017 JIM SHERP Ot 682.3 CELLULITIS OF ARM 08/20/2017 JIM SHER ANESTHESIA ASSISTANT Ot V10.3 HX OF BREAST MALIGNANCY 08/20/2017 JIM SHER ANESTHESIA ASSISTANT Ot V45.71 ACQUIRED ABSENCE OF BREAST AND NIPPLE 08/20/2017 JIM SHERP Ot V58.69 OTH MED,LT,CURRENT USE 08/20/2017 JIM SHERP Ot V87.41 PERSONAL HISTORY OF ANTINEOPLASTIC CHEMO 08/20/2017 TAVO VALLE MD Ot 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 O CEREBRAL IN 08/20/2017 TAVO VALLE MD Ot 433.30 MULT BILTRAL ARTERY OCCLUSION WO CEREBRA 08/20/2017 TAVO VALLE MD Ot 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 O CEREBRAL IN 08/20/2017 TAVO VALLE MD Ot V72.63 PRE-PROCEDURAL LABORATORY EXAMINATION 08/20/2017 TAVO VALLE MD Ot V72.81 RAKO-IMG-QELSLOEIO CARDIOVASCULAR 08/20/2017 TAVO VALLE MD Ot V72.83 EXAM PRE-OPERATIVE NEC 08/20/2017 TAVO VALLE MD Ot V74.8 SCREEN-BACTERIAL DIS NEC 08/20/2017 JIM SHER ANESTHESIA ASSISTANT Ot 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, 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 08/20/2017 JIM SHER ANESTHESIA ASSISTANT Ot 457.1 OTHER LYMPHEDEMA 08/20/2017 JIM SHER ANESTHESIA ASSISTANT Ot 682.3 CELLULITIS OF ARM 08/20/2017 JIM SHER ANESTHESIA ASSISTANT Ot V10.3 HX OF BREAST MALIGNANCY 08/20/2017 JIM SHER ANESTHESIA ASSISTANT Ot V45.71 ACQUIRED ABSENCE OF BREAST AND NIPPLE 08/20/2017 JIM SHER ANESTHESIA ASSISTANT Ot V58.69 OTH MED,LT,CURRENT USE 08/20/2017 JIM SHER ANESTHESIA ASSISTANT Ot V87.41 PERSONAL HISTORY OF ANTINEOPLASTIC CHEMO 08/20/2017 JIM SHER ANESTHESIA ASSISTANT Ot 174.9 MALIGN NEOPL BREAST NOS 08/20/2017 JIM SHER ANESTHESIA ASSISTANT Ot V76.12 OTH SCREEN MAMMO-MALIGN NEOPLASM OF [place] 08/20/2017 Ot 786.05 ELZBIETA RTNESS OF BREATH 08/20/2017 YOSI BRINK Ot 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, 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 08/20/2017 YOSI BRINK Ot 457.1 OTHER LYMPHEDEMA 08/20/2017 YOSI BRINK Ot 682.3 CELLULITIS OF ARM 08/20/2017 YOSI BRINK Ot V10.3 HX OF BREAST MALIGNANCY 08/20/2017 YOSI BRINK Ot V45.71 ACQUIRED ABSENCE OF BREAST AND NIPPLE 08/20/2017 YOSI BRINK Ot V58.69 OTH MED,LT,CURRENT USE 08/20/2017 YOSI BRINK Ot V87.41 PERSONAL HISTORY OF ANTINEOPLASTIC CHEMO 08/20/2017 LLUVIA GARDUNO MD Ot E78. 2 MIXED HYPERLIPIDEMIA 08/20/2017 LLUVIA GARDUNO MD Ot I10 ESSENTIAL (PRIMARY) HYPERTENSION 08/20/2017 LLUVIA GARDUNO MD Ot I25. 10 ATHSCL HEART DISEASE OF [place] CORONARY 08/20/2017 LLUVIA GARDUNO MD Ot I65. 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 08/20/2017 LLUVIA GARDUNO MD Ot E78. 2 MIXED HYPERLIPIDEMIA 08/20/2017 LLUVIA GARDUNO MD Ot I10 ESSENTIAL (PRIMARY) HYPERTENSION 08/20/2017 LLUVIA GARDUNO MD Ot I25. 10 ATHSCL HEART DISEASE OF [place] CORONARY 08/20/2017 LAUREEN VICK, LLUVIA Martínez Ot I65. 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 08/20/2017 JIM SHER Ot 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 08/20/2017 JIM SHER Ot Z79.899 OTHER EMBLEM FUSER TENDER (CURRENT) DRUG THERAPY 08/20/2017 JIM SHER Ot Z85.3 PERSONAL HISTORY OF MALIGNANT NEOPLASM O 08/20/2017 MINNIE SELF DO Ot E66. 9 OBESITY, UNSPECIFIED 08/20/2017 MINNIE SELF DO Ot I10 ESSENTIAL (PRIMARY) HYPERTENSION 08/20/2017 MINNIE SELF DO Ot I25. 10 ATHSCL HEART DISEASE OF [place] CORONARY 08/20/2017 MINNIE SELF DO Ot I44. 7 LEFT BUNDLE-BRANCH BLOCK, UNSPECIFIED 08/20/2017 MINNIE SELF DO Ot R41. 3 OTHER AMNESIA 08/20/2017 MINNIE SELF DO Ot E66. 9 OBESITY, UNSPECIFIED 08/20/2017 MINNIE SELF DO Ot I10 ESSENTIAL (PRIMARY) HYPERTENSION 08/20/2017 MINNIE SELF DO Ot I25. 10 ATHSCL HEART DISEASE OF [place] CORONARY 08/20/2017 MINNIE SELF DO Ot I44. 7 LEFT BUNDLE-BRANCH BLOCK, UNSPECIFIED 08/20/2017 MINNIE SELF DO Ot R41. 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 33 OBSTRUCTIVE SLEEP APNEA (ADULT) (PEDIATR 08/20/2017 MINNIE SELF DO Ot J44. 9 CHRONIC OBSTRUCTIVE PULMONARY DISEASE, U 08/20/2017 MINNIE SELF DO Ot R06. 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 2 MIXED HYPERLIPIDEMIA 08/20/2017 LLUVIA GARDUNO MD, Ot G47. 33 OBSTRUCTIVE SLEEP APNEA (ADULT) (PEDIATR 08/20/2017 LLUVIA GARDUNO MD Ot I10 ESSENTIAL (PRIMARY) HYPERTENSION 08/20/2017 LLUVIA GARDUNO MD, Ot I25. 10 ATHSCL HEART DISEASE OF [place] CORONARY 08/20/2017 LLUVIA GARDUNO MD, Ot R07. 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 08/20/2017 JIM SHER Ot Z12.31 ENCNTR SCREEN MAMMOGRAM FOR MALIGNANT NE 08/20/2017 RANDY ALVARADO MD Ot J44 .9 CHRONIC OBSTRUCTIVE PULMONARY DISEASE, U 08/20/2017 RANDY ALVARADO MD Ot K57.90 DVRTCLOS OF INTEST, PART UNSP, W/O PERF 08/20/2017 CLIVE NEVAREZ MD, Ot C91.1 0 CHRONIC LYMPHOCYTIC LEUK OF B-CELL TYPE 08/20/2017 CLIVE NEVAREZ MD Ot 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, UNSPECIFI 08/20/2017 CLIVE NEVAREZ MD Ot M79.6 44 PAIN IN RIGHT FINGER(S) 08/20/2017 CLIVE NEVAREZ MD, Ot M79.6 45 PAIN IN LEFT FINGER(S) 08/20/2017 LEONELA JAMES Ot E78.2 MIXED HYPERLIPIDEMIA 08/20/2017 LEONELA JAMES Ot I10 ESSENTIAL (PRIMARY) HYPERTENSION 08/20/2017 LEONELA JAMES Ot I25.10 ATHSCL HEART DISEASE OF [place] CORONARY 08/20/2017 LEONELA JAMES Ot 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 08/20/2017 JIM SHER Ot Z12.31 ENCNTR SCREEN MAMMOGRAM FOR MALIGNANT NE 08/20/2017 JIM SHER Ot Z85.3 PERSONAL HISTORY OF MALIGNANT NEOPLASM O 08/20/2017 JIM SHER Ot Z90.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 08/20/2017 YOSI BRINK Ot 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 08/20/2017 KEENA, BOBAN N Ot E78.00 PURE HYPERCHOLESTEROLEMIA, UNSPECIFIED 08/20/2017 KEENA, YOSI N Ot E83.42 HYPOMAGNESEMIA 08/20/2017 KEENA JOSEROSIBEL Mary Ot F03.90 UNSPECIFIED DEMENTIA WITHOUT BEHAVIORAL 08/20/2017 KEENA YOSI Hernandez Ot F41.9 ANXIETY DISORDER, UNSPECIFIED 08/20/2017 KEENA YOSI Hernandez Ot G25.81 RESTLESS LEGS SYNDROME 08/20/2017 KEENA YOSI Hernandez Ot I12.9 HYPERTENSIVE CHRONIC KIDNEY DISEASE W ST 08/20/2017 KEENA YOSI N Ot I25.10 ATHSCL HEART DISEASE OF [place] CORONARY 08/20/2017 KEENAYOSI N Ot J44.9 CHRONIC OBSTRUCTIVE PULMONARY DISEASE, U 08/20/2017 KEENA, YOSI Hernandez Ot N18.3 CHRONIC KIDNEY DISEASE, STAGE 3 (MODERAT 08/20/2017 KEENAYOSI Ot Z79.899 OTHER LONGTERM (CURRENT) DRUG THERAPY 08/20/2017 KEENAYOSI Ot Z85.3 PERSONAL HISTORY OF MALIGNANT NEOPLASM O 08/20/2017 KEENAYOSI Ot Z87.891 PERSONAL HISTORY OF NICOTINE DEPENDENCE 08/20/2017 KEENA, YOSI Hernandez Ot Z90.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 08/20/2017 KEENAYOSI Ot Z92.21 PERSONAL HISTORY OF ANTINEOPLASTIC CHEMO 09/09/2017 ROQUE VICK, CLVIE Jack Ot J22 UNSPECIFIED ACUTE LOWER RESPIRATORY INFE 11/30/2017 KEENA, YOSI Hernandez Ot 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 11/30/2017 KEENAYOSI Ot E78.00 PURE HYPERCHOLESTEROLEMIA, UNSPECIFIED 11/30/2017 KEENAYOSI N Ot E83.42 HYPOMAGNESEMIA 11/30/2017 KEENA YOSI Hernandez Ot F03.90 UNSPECIFIED DEMENTIA WITHOUT BEHAVIORAL 11/30/2017 YOSI BRINK Ot F41.9 ANXIETY DISORDER, UNSPECIFIED 11/30/2017 KEENAYOIS N Ot G25.81 RESTLESS LEGS SYNDROME 11/30/2017 KEENAYOSI N Ot I12.9 HYPERTENSIVE CHRONIC KIDNEY DISEASE W ST 11/30/2017 YOSI BRINK Ot I25.10 ATHSCL HEART DISEASE OF [place] CORONARY 11/30/2017 YOSI BRINK Ot J44.9 CHRONIC OBSTRUCTIVE PULMONARY DISEASE, U 11/30/2017 KEENA YOSI N Ot N18.3 CHRONIC KIDNEY DISEASE, STAGE 3 (MODERAT 11/30/2017 KEENA YOSI N Ot Z79.899 OTHER EMBLEM FUSER TENDER (CURRENT) DRUG THERAPY 11/30/2017 KEENA YOSI N Ot Z85.3 PERSONAL HISTORY OF MALIGNANT NEOPLASM O 11/30/2017 KEENA, YOSI N Ot Z87.891 PERSONAL HISTORY OF NICOTINE DEPENDENCE 11/30/2017 KEENAYOSI N Ot Z90.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 11/30/2017 KEENA YOSI N Ot Z92.21 PERSONAL HISTORY OF ANTINEOPLASTIC CHEMO 01/27/2018 YOSI BRINK Ot 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 01/27/2018 KEENA, YOSI N Ot E78.00 PURE HYPERCHOLESTEROLEMIA, UNSPECIFIED 01/27/2018 KEENAYOSI N Ot E83.42 HYPOMAGNESEMIA 01/27/2018 KEENAYOSI N Ot F03.90 UNSPECIFIED DEMENTIA WITHOUT BEHAVIORAL 01/27/2018 KEENAYOSI N Ot F41.9 ANXIETY DISORDER, UNSPECIFIED 01/27/2018 KEENA YOSI N Ot G25.81 RESTLESS LEGS SYNDROME 01/27/2018 KEENAYOSI Ot I12.9 HYPERTENSIVE CHRONIC KIDNEY DISEASE W ST 01/27/2018 KEENAYOSI N Ot I25.10 ATHSCL HEART DISEASE OF [place] CORONARY 01/27/2018 KEENA, YOSI Hernandez Ot J44.9 CHRONIC OBSTRUCTIVE PULMONARY DISEASE, U 01/27/2018 KEENAYOSI Ot N18.3 CHRONIC KIDNEY DISEASE, STAGE 3 (MODERAT 01/27/2018 KEENAYOSI N Ot Z79.899 OTHER EMBLEM FUSER TENDER (CURRENT) DRUG THERAPY 01/27/2018 KEENAYOSI N Ot Z85.3 PERSONAL HISTORY OF MALIGNANT NEOPLASM O 01/27/2018 KEENAYOSI N Ot Z87.891 PERSONAL HISTORY OF NICOTINE DEPENDENCE 01/27/2018 YOSI BRINK N Ot Z90.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 01/27/2018 YOSI BRINK N Ot Z92.21 PERSONAL HISTORY OF ANTINEOPLASTIC CHEMO 01/28/2018 YOSI BRINK N Ot 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 01/28/2018 YOSI BRINK Ot E78.00 PURE HYPERCHOLESTEROLEMIA, UNSPECIFIED 01/28/2018 YOSI BRINK N Ot E83.42 HYPOMAGNESEMIA 01/28/2018 YOSI BRINK N Ot F03.90 UNSPECIFIED DEMENTIA WITHOUT BEHAVIORAL 01/28/2018 YOSI BRINK N Ot F41.9 ANXIETY DISORDER, UNSPECIFIED 01/28/2018 YOSI BRINK Mary Ot G25.81 RESTLESS LEGS SYNDROME 01/28/2018 YOSI BRINK N Ot I12.9 HYPERTENSIVE CHRONIC KIDNEY DISEASE W ST 01/28/2018 YOSI BRINK N Ot I25.10 ATHSCL HEART DISEASE OF [place] CORONARY 01/28/2018 YOSI BRINK Mary Ot J44.9 CHRONIC OBSTRUCTIVE PULMONARY DISEASE, U 01/28/2018 YOSI BRINK N Ot N18.3 CHRONIC KIDNEY DISEASE, STAGE 3 (MODERAT 01/28/2018 YOSI BRINK Mary Ot Z79.899 OTHER LONGTERM (CURRENT) DRUG THERAPY 01/28/2018 YOSI BRINK N Ot Z85.3 PERSONAL HISTORY OF MALIGNANT NEOPLASM O 01/28/2018 YOSI BRINK N Ot Z87.891 PERSONAL HISTORY OF NICOTINE DEPENDENCE 01/28/2018 YOSI BRINK Ot Z90.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 01/28/2018 YOSI BRINK N Ot Z92.21 PERSONAL HISTORY OF ANTINEOPLASTIC CHEMO 02/01/2018 Ot 272.4 HYPE RLIPIDEMIA NEC/NOS 02/01/2018 Ot 414.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 02/01/2018 Ot 288.61 LYM PHOCYTOSIS (SYMPTOMATIC) 02/01/2018 Ot V10.3 HX O F BREAST MALIGNANCY 02/01/2018 YOSI BRINK N Ot 174.9 MALIGN NEOPL BREAST NOS 02/01/2018 TORI VICK, TAVO Alexander Ot 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 O CEREBRAL IN 02/01/2018 TORI VICK, TAVO Alexander Ot V72.63 PRE-PROCEDURAL LABORATORY EXAMINATION 02/01/2018 TORI VICK, TAVO Alexander Ot V72.81 CSYS-FNT-BBBYGIDDL CARDIOVASCULAR 02/01/2018 TAVO VALLE MD Ot V72.83 EXAM PRE-OPERATIVE NEC 02/01/2018 TORI VICK, TAVO Alexander Ot V74.8 SCREEN-BACTERIAL DIS NEC 02/01/2018 ROQUE VICK, CLIVE Jack Ot 793.8 0 UNSPEC ABNORMAL MAMMOGRAM 02/01/2018 JIM SHER ANESTHESIA ASSISTANT Ot 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, 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 02/01/2018 JIM SHER ANESTHESIA ASSISTANT Ot 368.9 VISUAL DISTURBANCE NOS 02/01/2018 JIM SHER ANESTHESIA ASSISTANT Ot 585.3 CHRONIC KIDNEY DISEASE, STAGE III (MODER 02/01/2018 JIM SHER ANESTHESIA ASSISTANT Ot V10.3 HX OF BREAST MALIGNANCY 02/01/2018 JIM SHER ANESTHESIA ASSISTANT Ot V45.71 ACQUIRED ABSENCE OF BREAST AND NIPPLE 02/01/2018 JIM SHERP Ot V58.69 OTH MED,LT,CURRENT USE 02/01/2018 JIM SHERP Ot V87.41 PERSONAL HISTORY OF ANTINEOPLASTIC CHEMO 02/01/2018 LLUVIA GARDUNO MD Ot 272. 4 HYPERLIPIDEMIA NEC/NOS 02/01/2018 LLUVIA GARDUNO MD Ot 414. 01 CORONARY ATHEROSCLEROSIS OF [place] CORON 02/01/2018 TORI VICK, TAVO Alexander Ot 790.29 OTHER ABNORMAL GLUCOSE 02/01/2018 TORI VICK, TAVO Alexander Ot 682.2 CELLULITIS OF TRUNK 02/01/2018 TORI VICK, TAVO Alexander Ot V72.84 EXAM PRE-OPERATIVE NOS 02/01/2018 LLUVIA GARDUNO MD Ot 272. 4 HYPERLIPIDEMIA NEC/NOS 02/01/2018 LLUVIA GARDUNO MD Ot 401. 9 HYPERTENSION NOS 02/01/2018 LLUVIA GARDUNO MD Ot 414. 00 CORON ATHEROSCLER NOS TYPE VESSEL, NATIV 02/01/2018 LLUVIA GARDUNO MD Ot 786. 50 CHEST PAIN NOS 02/01/2018 LLUVIA GARDUNO MD Ot 272. 4 HYPERLIPIDEMIA NEC/NOS 02/01/2018 LLUVIA GARDUNO MD Ot 305. 1 TOBACCO USE DISORDER 02/01/2018 LLUVIA GARDUNO MD Ot 401. 9 HYPERTENSION NOS 02/01/2018 LLUVIA GARDUNO MD Ot 414. 00 CORON ATHEROSCLER NOS TYPE VESSEL, NATIV 02/01/2018 LLUVIA GARDUNO MD Ot 433. 10 CAROTID ARTERY OCCLUSION W O CEREBRAL IN 02/01/2018 LLUVIA GARDUNO MD Ot 786. 50 CHEST PAIN NOS 02/01/2018 YOSI BRINK Ot 174.9 MALIGN NEOPL BREAST NOS 02/01/2018 YOSI BRINK Ot 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, 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 02/01/2018 YOSI BRINK Ot 585.3 CHRONIC KIDNEY DISEASE, STAGE III (MODER 02/01/2018 LLUVIA GARDUNO MD Ot 272. 4 HYPERLIPIDEMIA NEC/NOS 02/01/2018 LLUVIA GARDUNO MD Ot 401. 9 HYPERTENSION NOS 02/01/2018 LLUVIA GARDUNO MD Ot 414. 00 CORON ATHEROSCLER NOS TYPE VESSEL, NATIV 02/01/2018 LLUVIA GARDUNO MD Ot 433. 10 CAROTID ARTERY OCCLUSION W O CEREBRAL IN 02/01/2018 LLUVIA GARDUNO MD Ot 786. 09 RESPIRATORY ABNORM NEC 02/01/2018 JIM SHERP Ot 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, 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 02/01/2018 JIM SHERP Ot 457.1 OTHER LYMPHEDEMA 02/01/2018 JIM SHER ANESTHESIA ASSISTANT Ot 682.3 CELLULITIS OF ARM 02/01/2018 JIM SHER ANESTHESIA ASSISTANT Ot V10.3 HX OF BREAST MALIGNANCY 02/01/2018 JIM SHERP Ot V45.71 ACQUIRED ABSENCE OF BREAST AND [...] EXAMINATION 02/01/2018 TAVO VALLE MD Ot V72.81 [id number] CARDIOVASCULAR 02/01/2018 TAVO VALLE MD Ot V72.83 EXAM PRE-OPERATIVE NEC 02/01/2018 TAVO VALLE MD Ot V74.8 SCREEN-BACTERIAL DIS NEC 02/01/2018 CHRISTOS JIM Catherine ANESTHESIA ASSISTANT Ot 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, 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 02/01/2018 CHRISTOS JIM Catherine ANESTHESIA ASSISTANT Ot 457.1 OTHER LYMPHEDEMA 02/01/2018 SHERJIM Alexander ANESTHESIA ASSISTANT Ot 682.3 CELLULITIS OF ARM 02/01/2018 SHERJIM Alexander ANESTHESIA ASSISTANT Ot V10.3 HX OF BREAST MALIGNANCY 02/01/2018 SHER JIM Alexander ANESTHESIA ASSISTANT Ot V45.71 ACQUIRED ABSENCE OF BREAST AND NIPPLE 02/01/2018 SHER JIM Alexander ANESTHESIA ASSISTANT Ot V58.69 OTH MED,LT,CURRENT USE 02/01/2018 CHRISTOS JIM Aleaxnder ANESTHESIA ASSISTANT Ot V87.41 PERSONAL HISTORY OF ANTINEOPLASTIC CHEMO 02/01/2018 CHRISTOS JIM Catherine ANESTHESIA ASSISTANT Ot 174.9 MALIGN NEOPL BREAST NOS 02/01/2018 CHRISTOS JIM Alexander ANESTHESIA ASSISTANT Ot V76.12 OTH SCREEN MAMMO-MALIGN NEOPLASM OF [place] 02/01/2018 Ot 786.05 ELZBIETA RTNESS OF BREATH 02/01/2018 YOSI BRINK Ot 204.10 [...] ANTINEOPLASTIC CHEMO 02/01/2018 LLUVIA GARDUNO MD Ot E78. 2 MIXED HYPERLIPIDEMIA 02/01/2018 LLUVIA GARDUNO MD Ot I10 ESSENTIAL (PRIMARY) HYPERTENSION 02/01/2018 LLUVIA GARDUNO MD Ot I25. 10 ATHSCL HEART DISEASE OF [place] CORONARY 02/01/2018 LLUVIA GARDUNO MD Ot I65. 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 02/01/2018 LLUVIA GARDUNO MD Ot E78. 2 MIXED HYPERLIPIDEMIA 02/01/2018 LLUVIA GARDUNO MD Ot I10 ESSENTIAL (PRIMARY) HYPERTENSION 02/01/2018 LLUVIA GARDUNO MD Ot I25. 10 ATHSCL HEART DISEASE OF [place] CORONARY 02/01/2018 LLUVIA GARDUNO MD Ot I65. 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 02/01/2018 JIM SHER Ot 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 02/01/2018 JIM SHER Ot Z79.899 OTHER LONGTERM (CURRENT) DRUG THERAPY 02/01/2018 JIM SHER Ot Z85.3 PERSONAL HISTORY OF MALIGNANT NEOPLASM O 02/01/2018 MINNIE SELF DO Ot E66. 9 OBESITY, UNSPECIFIED 02/01/2018 MINNIE SELF DO Ot I10 ESSENTIAL (PRIMARY) HYPERTENSION 02/01/2018 MINNIE SELF DO Ot I25. 10 ATHSCL HEART DISEASE OF [place] CORONARY 02/01/2018 MINNIE SELF DO Ot I44. 7 LEFT BUNDLE-BRANCH BLOCK, UNSPECIFIED 02/01/2018 MINNIE SELF DO Ot R41. 3 OTHER AMNESIA 02/01/2018 MINNIE SELF DO Ot E66. 9 OBESITY, UNSPECIFIED 02/01/2018 MINNIE SELF DO Ot I10 ESSENTIAL (PRIMARY) HYPERTENSION 02/01/2018 MINNIE SELF DO Ot I25. 10 ATHSCL HEART DISEASE OF [place] CORONARY 02/01/2018 MINNIE SELF DO, Ot I44. 7 LEFT BUNDLE-BRANCH BLOCK, UNSPECIFIED 02/01/2018 MINNIE SELF DO Ot R41. 3 OTHER AMNESIA 02/01/2018 JIM SHER Ot 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 02/01/2018 JIM SHER Ot Z12.31 ENCNTR SCREEN MAMMOGRAM FOR MALIGNANT NE 02/01/2018 MINNIE SELF DO Ot G47. 33 OBSTRUCTIVE SLEEP APNEA (ADULT) (PEDIATR 02/01/2018 MINNIE SELF DO Ot J44. 9 CHRONIC OBSTRUCTIVE PULMONARY DISEASE, U 02/01/2018 MINNIE SELF DO Ot R06. 00 DYSPNEA, UNSPECIFIED 02/01/2018 KEENA, BOBAN N Ot 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 02/01/2018 LLUVIA GARDUNO MD, Ot E78. 2 MIXED HYPERLIPIDEMIA 02/01/2018 LLUVIA GARDUNO MD Ot G47. 33 OBSTRUCTIVE SLEEP APNEA (ADULT) (PEDIATR 02/01/2018 LLUVIA GARDUNO MD Ot I10 ESSENTIAL (PRIMARY) HYPERTENSION 02/01/2018 LLUVIA GARDUNO MD Ot I25. 10 ATHSCL HEART DISEASE OF [place] CORONARY 02/01/2018 LLUVIA GARDUNO MD Ot R07. 9 CHEST PAIN, UNSPECIFIED 02/01/2018 JIM SHER Ot 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 02/01/2018 JIM SHER Ot Z12.31 ENCNTR SCREEN MAMMOGRAM FOR MALIGNANT NE 02/01/2018 RANDY ALVARADO MD Ot J44 .9 CHRONIC OBSTRUCTIVE PULMONARY DISEASE, U 02/01/2018 RANDY ALVARADO MD Ot K57.90 DVRTCLOS OF INTEST, PART UNSP, W/O PERF 02/01/2018 CLIVE NEVAREZ MD, Ot C91.1 0 CHRONIC LYMPHOCYTIC LEUK OF B-CELL TYPE 02/01/2018 CLIVE NEVAREZ MD, Ot 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, UNSPECIFI 02/01/2018 CLIVE NEVAREZ MD Ot M79.6 44 PAIN IN RIGHT FINGER(S) 02/01/2018 CLIVE NEVAREZ MD, Ot M79.6 45 PAIN IN LEFT FINGER(S) 02/01/2018 LEONELA JAMES Ot E78.2 MIXED HYPERLIPIDEMIA 02/01/2018 LEONELA JAMES Ot I10 ESSENTIAL (PRIMARY) HYPERTENSION 02/01/2018 LEONELA JAMES Ot I25.10 ATHSCL HEART DISEASE OF [place] CORONARY 02/01/2018 LEONELA JAMES Ot 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 02/01/2018 JIM SHERP Ot Z12.31 ENCNTR SCREEN MAMMOGRAM FOR MALIGNANT NE 02/01/2018 JIM SHERP Ot Z85.3 PERSONAL HISTORY OF MALIGNANT NEOPLASM O 02/01/2018 JIM SHERP Ot Z90.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 02/01/2018 ROQUE VICK, CLIVE Jack Ot J22 UNSPECIFIED ACUTE LOWER RESPIRATORY INFE 02/01/2018 YOSI BRINK Mary Ot 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 02/01/2018 YOSI BRINK Mary Ot E78.00 PURE HYPERCHOLESTEROLEMIA, UNSPECIFIED 02/01/2018 YOSI BRINK Mary Ot E83.42 HYPOMAGNESEMIA 02/01/2018 YOSI BRINK Mary Ot F03.90 UNSPECIFIED DEMENTIA WITHOUT BEHAVIORAL 02/01/2018 KEENA JOSEROSIBEL Mary Ot F41.9 ANXIETY DISORDER, UNSPECIFIED 02/01/2018 YOSI BRINK Mary Ot G25.81 RESTLESS LEGS SYNDROME 02/01/2018 YOSI BRINK Mary Ot I12.9 HYPERTENSIVE CHRONIC KIDNEY DISEASE W ST 02/01/2018 YOSI BRINK Mary Ot I25.10 ATHSCL HEART DISEASE OF [place] CORONARY 02/01/2018 YOSI BRINK Mary Ot J44.9 CHRONIC OBSTRUCTIVE PULMONARY DISEASE, U 02/01/2018 YOSI BRINK Mary Ot N18.3 CHRONIC KIDNEY DISEASE, STAGE 3 (MODERAT 02/01/2018 YOSI BRINK Mary Ot Z79.899 OTHER LONGTERM (CURRENT) DRUG THERAPY 02/01/2018 YOSI BRINK Mary Ot Z85.3 PERSONAL HISTORY OF MALIGNANT NEOPLASM O 02/01/2018 YOSI BRINK Mary Ot Z87.891 PERSONAL HISTORY OF NICOTINE DEPENDENCE 02/01/2018 YOSI BRINK Mary Ot 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 02/01/2018 YOSI BRINK Mary Ot Z92.21 PERSONAL HISTORY OF ANTINEOPLASTIC CHEMO 02/03/2018 Ot 272.4 HYPE RLIPIDEMIA NEC/NOS 02/03/2018 Ot 414.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 02/03/2018 Ot 288.61 LYM PHOCYTOSIS (SYMPTOMATIC) 02/03/2018 Ot V10.3 HX O F BREAST MALIGNANCY 02/03/2018 YOSI BRINK Ot 174.9 MALIGN NEOPL BREAST NOS 02/03/2018 TAVO VALLE MD Ot 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 O CEREBRAL IN 02/03/2018 TAVO VALLE MD Ot V72.63 PRE-PROCEDURAL LABORATORY EXAMINATION 02/03/2018 TAVO VALLE MD Ot V72.81 [id number] CARDIOVASCULAR 02/03/2018 TORI VICK, TAVO Alexander Ot V72.83 EXAM PRE-OPERATIVE NEC 02/03/2018 TORI VICK, TAVO Alexander Ot V74.8 SCREEN-BACTERIAL DIS NEC 02/03/2018 ROQUE VICK, CLIVE Jack Ot 793.8 0 UNSPEC ABNORMAL MAMMOGRAM 02/03/2018 JIM SHER ANESTHESIA ASSISTANT Ot 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, 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 02/03/2018 SHERJIM Alexander ANESTHESIA ASSISTANT Ot 368.9 VISUAL DISTURBANCE NOS 02/03/2018 SHERJIM Alexander ANESTHESIA ASSISTANT Ot 585.3 CHRONIC KIDNEY DISEASE, STAGE III (MODER 02/03/2018 SHERJIM Alexander S ANESTHESIA ASSISTANT Ot V10.3 HX OF BREAST MALIGNANCY 02/03/2018 SHERJIM Alexander ANESTHESIA ASSISTANT Ot V45.71 ACQUIRED ABSENCE OF BREAST AND NIPPLE 02/03/2018 JIM SHER S ANESTHESIA ASSISTANT Ot V58.69 OTH MED,LT,CURRENT USE 02/03/2018 JIM SHER ANESTHESIA ASSISTANT Ot V87.41 PERSONAL HISTORY OF ANTINEOPLASTIC CHEMO 02/03/2018 LLUVIA GARDUNO MD Ot 272. 4 HYPERLIPIDEMIA NEC/NOS 02/03/2018 LLUVIA GARDUNO MD Ot 414. 01 CORONARY ATHEROSCLEROSIS OF [place] CORON 02/03/2018 TORI VICK, TAVO Alexander Ot 790.29 OTHER ABNORMAL GLUCOSE 02/03/2018 TORI VICK, TAVO Alexander Ot 682.2 CELLULITIS OF TRUNK 02/03/2018 TAVO VALLE MD Ot V72.84 EXAM PRE-OPERATIVE NOS 02/03/2018 LLUVIA GARDUNO MD Ot 272. 4 HYPERLIPIDEMIA NEC/NOS 02/03/2018 LLUVIA GARDUNO MD Ot 401. 9 HYPERTENSION NOS 02/03/2018 LLUVIA GARDUNO MD Ot 414. 00 CORON ATHEROSCLER NOS TYPE VESSEL, NATIV 02/03/2018 LLUVIA GARDUNO MD Ot 786. 50 CHEST PAIN NOS 02/03/2018 LLUVIA GARDUNO MD Ot 272. 4 HYPERLIPIDEMIA NEC/NOS 02/03/2018 LLUVIA GARDUNO MD Ot 305. 1 TOBACCO USE DISORDER 02/03/2018 LLUVIA GARDUNO MD Ot 401. 9 HYPERTENSION NOS 02/03/2018 LLUVIA GARDUNO MD Ot 414. 00 CORON ATHEROSCLER NOS TYPE VESSEL, NATIV 02/03/2018 LLUVIA GARDUNO MD Ot 433. 10 CAROTID ARTERY OCCLUSION W O CEREBRAL IN 02/03/2018 LLUVIA GARDUNO MD Ot 786. 50 CHEST PAIN NOS 02/03/2018 YOSI BRINK Ot 174.9 MALIGN NEOPL BREAST NOS 02/03/2018 YOSI BRINK Ot 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, 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 02/03/2018 YOSI BRINK Ot 585.3 CHRONIC KIDNEY DISEASE, STAGE III (MODER 02/03/2018 LLUVIA GARDUNO MD Ot 272. 4 HYPERLIPIDEMIA NEC/NOS 02/03/2018 LLUVIA GARDUNO MD Ot 401. 9 HYPERTENSION NOS 02/03/2018 LLUVIA GARDUNO MD Ot 414. 00 CORON ATHEROSCLER NOS TYPE VESSEL, NATIV 02/03/2018 LLUVIA GARDUNO MD Ot 433. 10 CAROTID ARTERY OCCLUSION W O CEREBRAL IN 02/03/2018 LLUIVA GARDUNO MD Ot 786. 09 RESPIRATORY ABNORM NEC 02/03/2018 JIM SHERP Ot 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, 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 02/03/2018 JIM SHERP Ot 457.1 OTHER LYMPHEDEMA 02/03/2018 JIM SHERP Ot 682.3 CELLULITIS OF ARM 02/03/2018 JIM SHER ANESTHESIA ASSISTANT Ot V10.3 HX OF BREAST MALIGNANCY 02/03/2018 JIM SHERP Ot V45.71 ACQUIRED ABSENCE OF BREAST AND NIPPLE 02/03/2018 JIM SHERP Ot V58.69 OT MED,LT,CURRENT USE 02/03/2018 JIM SHERP Ot V87.41 PERSONAL HISTORY OF ANTINEOPLASTIC CHEMO 02/03/2018 TAVO VALLE MD Ot 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 O CEREBRAL IN 02/03/2018 TAVO VALLE MD Ot 433.30 MULT BILTRAL ARTERY OCCLUSION WO CEREBRA 02/03/2018 TAVO VALLE MD Ot 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 O CEREBRAL IN 02/03/2018 TAVO VALLE MD Ot V72.63 PRE-PROCEDURAL LABORATORY EXAMINATION 02/03/2018 TAVO VALLE MD Ot V72.81 [id number]-[id number]-MQRXLATUK CARDIOVASCULAR 02/03/2018 TORI VICK, TAVO S Ot V72.83 EXAM PRE-OPERATIVE NEC 02/03/2018 TORI VICK, TAVO Alexander Ot V74.8 SCREEN-BACTERIAL DIS NEC 02/03/2018 CHRISTOS JIM Alexander ANESTHESIA ASSISTANT Ot 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, 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 02/03/2018 CHRISTOS JIM Alexander ANESTHESIA ASSISTANT Ot 457.1 OTHER LYMPHEDEMA 02/03/2018 CHRISTOS JIM Alexander ANESTHESIA ASSISTANT Ot 682.3 CELLULITIS OF ARM 02/03/2018 CHRISTOS JIM Alexander ANESTHESIA ASSISTANT Ot V10.3 HX OF BREAST MALIGNANCY 02/03/2018 CHRISTOS JIM Alexander ANESTHESIA ASSISTANT Ot V45.71 ACQUIRED ABSENCE OF BREAST AND NIPPLE 02/03/2018 SHER JIM Alexander ANESTHESIA ASSISTANT Ot V58.69 OTH MED,LT,CURRENT USE 02/03/2018 CHRISTOS JIM Alexander ANESTHESIA ASSISTANT Ot V87.41 PERSONAL HISTORY OF ANTINEOPLASTIC CHEMO 02/03/2018 HUNG SHERBELA Catherine ANESTHESIA ASSISTANT Ot 174.9 MALIGN NEOPL BREAST NOS 02/03/2018 CHRISTOS JIM Alexander ANESTHESIA ASSISTANT Ot V76.12 OTH SCREEN MAMMO-MALIGN NEOPLASM OF [place] 02/03/2018 Ot 786.05 ELZBIETA RTNESS OF BREATH 02/03/2018 YOSI BRINK Ot 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, 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 02/03/2018 YOSI BRINK Ot 457.1 OTHER LYMPHEDEMA 02/03/2018 YOSI BRINK Ot 682.3 CELLULITIS OF ARM 02/03/2018 YOSI BRINK Ot V10.3 HX OF BREAST MALIGNANCY 02/03/2018 YOSI BRINK Ot V45.71 ACQUIRED ABSENCE OF BREAST AND NIPPLE 02/03/2018 YOSI BRINK Ot V58.69 OTH MED,LT,CURRENT USE 02/03/2018 YOSI BRINK Ot V87.41 PERSONAL HISTORY OF ANTINEOPLASTIC CHEMO 02/03/2018 LLUVIA GARDUNO MD Ot E78. 2 MIXED HYPERLIPIDEMIA 02/03/2018 LLUVIA GARDUNO MD Ot I10 ESSENTIAL (PRIMARY) HYPERTENSION 02/03/2018 LLUVIA GARDUNO MD Ot I25. 10 ATHSCL HEART DISEASE OF [place] CORONARY 02/03/2018 LLUVIA GARDUNO MD Ot I65. 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 02/03/2018 LLUVIA GARDUNO MD Ot E78. 2 MIXED HYPERLIPIDEMIA 02/03/2018 LLUVIA GARDUNO MD Ot I10 ESSENTIAL (PRIMARY) HYPERTENSION 02/03/2018 LLUVIA GARDUNO MD Ot I25. 10 ATHSCL HEART DISEASE OF [place] CORONARY 02/03/2018 LLUVIA GARDUNO MD Ot I65. 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 02/03/2018 JIM SHER Ot 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 02/03/2018 JIM SHER Ot Z79.899 OTHER LONGTERM (CURRENT) DRUG THERAPY 02/03/2018 JIM SHER Ot Z85.3 PERSONAL HISTORY OF MALIGNANT NEOPLASM O 02/03/2018 MINNIE SELF DO Ot E66. 9 OBESITY, UNSPECIFIED 02/03/2018 MINNIE SELF DO Ot I10 ESSENTIAL (PRIMARY) HYPERTENSION 02/03/2018 MINNIE SELF DO Ot I25. 10 ATHSCL HEART DISEASE OF [place] CORONARY 02/03/2018 MINNIE SELF DO Ot I44. 7 LEFT BUNDLE-BRANCH BLOCK, UNSPECIFIED 02/03/2018 MINNIE SELF DO Ot R41. 3 OTHER AMNESIA 02/03/2018 MINNIE SELF DO Ot E66. 9 OBESITY, UNSPECIFIED 02/03/2018 MINNIE SELF DO Ot I10 ESSENTIAL (PRIMARY) HYPERTENSION 02/03/2018 MINNIE SELF DO Ot I25. 10 ATHSCL HEART DISEASE OF [place] CORONARY 02/03/2018 MINNIE SLEF DO Ot I44. 7 LEFT BUNDLE-BRANCH BLOCK, UNSPECIFIED 02/03/2018 MINNIE SELF DO Ot R41. 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 33 OBSTRUCTIVE SLEEP APNEA (ADULT) (PEDIATR 02/03/2018 MINNIE SELF DO Ot J44. 9 CHRONIC OBSTRUCTIVE PULMONARY DISEASE, U 02/03/2018 CLAIR MINNIE KAUR Frieda Ot R06. 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 2 MIXED HYPERLIPIDEMIA 02/03/2018 LLUVIA GARDUNO MD, Ot G47. 33 OBSTRUCTIVE SLEEP APNEA (ADULT) (PEDIATR 02/03/2018 LLUVIA GARDUNO MD, Ot I10 ESSENTIAL (PRIMARY) HYPERTENSION 02/03/2018 LLUVIA GARDUNO MD, Ot I25. 10 ATHSCL HEART DISEASE OF [place] CORONARY 02/03/2018 LLUVIA GARDUNO MD, Ot R07. 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 02/03/2018 JIM SHER Ot Z12.31 ENCNTR SCREEN MAMMOGRAM FOR MALIGNANT NE 02/03/2018 RANDY ALVARADO MD, Ot J44 .9 CHRONIC OBSTRUCTIVE PULMONARY DISEASE, U 02/03/2018 RANDY ALVARADO MD, Ot K57.90 DVRTCLOS OF INTEST, PART UNSP, W/O PERF 02/03/2018 CLIVE NEVAREZ MD, Ot C91.1 0 CHRONIC LYMPHOCYTIC LEUK OF B-CELL TYPE 02/03/2018 CLIVE NEVAREZ MD, Ot 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, UNSPECIFI 02/03/2018 CLIVE NEVAREZ MD, Ot M79.6 44 PAIN IN RIGHT FINGER(S) 02/03/2018 CLIVE NEVAREZ MD, Ot M79.6 45 PAIN IN LEFT FINGER(S) 02/03/2018 LEONELA JAMES Ot E78.2 MIXED HYPERLIPIDEMIA 02/03/2018 LEONELA JAMES Ot I10 ESSENTIAL (PRIMARY) HYPERTENSION 02/03/2018 LEONELA JAMES Ot I25.10 ATHSCL HEART DISEASE OF [place] CORONARY 02/03/2018 LEONELA JAMES Ot 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 02/03/2018 JIM SHER Ot Z12.31 ENCNTR SCREEN MAMMOGRAM FOR MALIGNANT NE 02/03/2018 SHER, HILAH S ANESTHESIA ASSISTANT Ot Z85.3 PERSONAL HISTORY OF MALIGNANT NEOPLASM O 02/03/2018 JIM SHER ANESTHESIA ASSISTANT Ot Z90.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 02/03/2018 ROQUE VICK, CLIVE Jack Ot J22 UNSPECIFIED ACUTE LOWER RESPIRATORY INFE 02/03/2018 KEENA YOSI Hernandez Ot 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 02/03/2018 KEENA YOSI Hernandez Ot E78.00 PURE HYPERCHOLESTEROLEMIA, UNSPECIFIED 02/03/2018 KEENA YOSI Hernandez Ot E83.42 HYPOMAGNESEMIA 02/03/2018 KEENA YOSI Hernandez Ot F03.90 UNSPECIFIED DEMENTIA WITHOUT BEHAVIORAL 02/03/2018 KEENA YOSI Hernandez Ot F41.9 ANXIETY DISORDER, UNSPECIFIED 02/03/2018 KEENAYOSI Ot G25.81 RESTLESS LEGS SYNDROME 02/03/2018 KEENAYOSI Ot I12.9 HYPERTENSIVE CHRONIC KIDNEY DISEASE W ST 02/03/2018 KEENAYOSI RUIZ Ot I25.10 ATHSCL HEART DISEASE OF [place] CORONARY 02/03/2018 KEENA YOSI Hernandez Ot J44.9 CHRONIC OBSTRUCTIVE PULMONARY DISEASE, U 02/03/2018 KEEAN YOSI N Ot N18.3 CHRONIC KIDNEY DISEASE, STAGE 3 (MODERAT 02/03/2018 KEENAYOSI N Ot Z79.899 OTHER LONGTERM (CURRENT) DRUG THERAPY 02/03/2018 KEENAYOSI N Ot Z85.3 PERSONAL HISTORY OF MALIGNANT NEOPLASM O 02/03/2018 KEENA YOSI Hernandez Ot Z87.891 PERSONAL HISTORY OF NICOTINE DEPENDENCE 02/03/2018 KEENAYOSI Ot Z90.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 02/03/2018 KEENA YOSI N Ot Z92.21 PERSONAL HISTORY OF ANTINEOPLASTIC CHEMO 02/05/2018 LEONELA JAMES Ot E78.5 HYPERLIPIDEMIA, UNSPECIFIED 02/05/2018 LEONELA JAMES Ot I25.10 ATHSCL HEART DISEASE OF [place] CORONARY 02/05/2018 LEONELA JAMES Ot I44.7 LEFT BUNDLE-BRANCH BLOCK, UNSPECIFIED 02/05/2018 LEONELA JAMES Ot N18.3 CHRONIC KIDNEY DISEASE, STAGE 3 (MODERAT 02/05/2018 LEONELA JAMES Ot R06.00 DYSPNEA, UNSPECIFIED 02/11/2018 LLUVIA GARDUNO MD Ot C91. 10 CHRONIC LYMPHOCYTIC LEUK OF B-CELL TYPE 02/11/2018 LLUVIA GARDUNO MD Ot E78. 00 PURE HYPERCHOLESTEROLEMIA, UNSPECIFIED 02/11/2018 LLUVIA GARDUNO MD Ot E78. 5 HYPERLIPIDEMIA, UNSPECIFIED 02/11/2018 LLUVIA GARDUNO MD Ot E87. 6 HYPOKALEMIA 02/11/2018 LLUVIA GARDUNO MD Ot G47. 33 OBSTRUCTIVE SLEEP APNEA (ADULT) (PEDIATR 02/11/2018 LULVIA GARDUNO MD Ot I12. 9 HYPERTENSIVE CHRONIC KIDNEY DISEASE W ST 02/11/2018 LLUVIA GARDUNO MD Ot I25. 10 ATHSCL HEART DISEASE OF [place] CORONARY 02/11/2018 LLUVIA GARDUNO MD Ot I44. 7 LEFT BUNDLE-BRANCH BLOCK, UNSPECIFIED 02/11/2018 LLUVIA GARDUNO MD Ot I65. 29 OCCLUSION AND STENOSIS OF UNSPECIFIED CA 02/11/2018 LLUVIA GARDUNO MD Ot K21. 9 GASTRO-ESOPHAGEAL REFLUX DISEASE WITHOUT 02/11/2018 LLUVIA GARDUNO MD Ot N18. 9 CHRONIC KIDNEY DISEASE, UNSPECIFIED 02/11/2018 LLUVIA GARDUNO MD Ot R06. 02 SHORTNESS OF BREATH 02/11/2018 LLUVIA GARDUNO MD Ot Z79.899 OTHER LONGTERM (CURRENT) DRUG THERAPY 02/11/2018 LLUVIA GARDUNO MD Ot Z85. 3 PERSONAL HISTORY OF MALIGNANT NEOPLASM O 02/11/2018 LLUVIA GARDUNO MD Ot Z87.891 PERSONAL HISTORY OF NICOTINE DEPENDENCE 02/12/2018 LLUVIA GARDUNO MD Ot C91. 10 CHRONIC LYMPHOCYTIC LEUK OF B-CELL TYPE 02/12/2018 LLUVIA GARDUNO MD Ot E78. 00 PURE HYPERCHOLESTEROLEMIA, UNSPECIFIED 02/12/2018 LLUVIA GARDUNO MD Ot E78. 5 HYPERLIPIDEMIA, UNSPECIFIED 02/12/2018 LLUVIA GARDUNO MD Ot E87. 6 HYPOKALEMIA 02/12/2018 LLUVIA GARDUNO MD Ot G47. 33 OBSTRUCTIVE SLEEP APNEA (ADULT) (PEDIATR 02/12/2018 LLUVIA GARDUNO MD Ot I12. 9 HYPERTENSIVE CHRONIC KIDNEY DISEASE W ST 02/12/2018 LLUVIA GARDUNO MD Ot I25. 10 ATHSCL HEART DISEASE OF [place] CORONARY 02/12/2018 LLUVIA GARDUNO MD Ot I44. 7 LEFT BUNDLE-BRANCH BLOCK, UNSPECIFIED 02/12/2018 LLUVIA GARDUNO MD Ot I65. 29 OCCLUSION AND STENOSIS OF UNSPECIFIED CA 02/12/2018 LLUVIA GARDUNO MD Ot K21. 9 GASTRO-ESOPHAGEAL REFLUX DISEASE WITHOUT 02/12/2018 LLUVIA GARDUNO MD Ot N18. 9 CHRONIC KIDNEY DISEASE, UNSPECIFIED 02/12/2018 LLUVIA GARDUNO MD Ot R06. 02 SHORTNESS OF BREATH 02/12/2018 LLUVIA GARDUNO MD Ot Z79.899 OTHER EMBLEM FUSER TENDER (CURRENT) DRUG THERAPY 02/12/2018 LLUVIA GARDUNO MD Ot Z85. 3 PERSONAL HISTORY OF MALIGNANT NEOPLASM O 02/12/2018 LLUVIA GARDUNO MD Ot Z87.891 PERSONAL HISTORY OF NICOTINE DEPENDENCE 02/20/2018 LLUVIA GARDUNO MD Ot C91. 10 CHRONIC LYMPHOCYTIC LEUK OF B-CELL TYPE 02/20/2018 LLUVIA GARDUNO MD Ot E78. 00 PURE HYPERCHOLESTEROLEMIA, UNSPECIFIED 02/20/2018 LLUVIA GARDUNO MD Ot E78. 5 HYPERLIPIDEMIA, UNSPECIFIED 02/20/2018 LLUVIA GARDUNO MD Ot E87. 6 HYPOKALEMIA 02/20/2018 LLUVIA GARDUNO MD Ot G47. 33 OBSTRUCTIVE SLEEP APNEA (ADULT) (PEDIATR 02/20/2018 LLUVIA GARDUNO MD Ot I12. 9 HYPERTENSIVE CHRONIC KIDNEY DISEASE W ST 02/20/2018 LLUVIA GARDUNO MD Ot I25. 10 ATHSCL HEART DISEASE OF [place] CORONARY 02/20/2018 LLUVIA GARDUNO MD Ot I44. 7 LEFT BUNDLE-BRANCH BLOCK, UNSPECIFIED 02/20/2018 LLUVIA GARDUNO MD Ot I65. 29 OCCLUSION AND STENOSIS OF UNSPECIFIED CA 02/20/2018 LLUVIA GARDUNO MD Ot K21. 9 GASTRO-ESOPHAGEAL REFLUX DISEASE WITHOUT 02/20/2018 LLUVIA GARDUNO MD Ot N18. 9 CHRONIC KIDNEY DISEASE, UNSPECIFIED 02/20/2018 LAUREEN MD, BASHAR J Ot R06. 02 SHORTNESS OF BREATH 02/20/2018 LAUREEN VICK, LLUVIA Martínez Ot Z79.899 OTHER LONGTERM (CURRENT) DRUG THERAPY 02/20/2018 LLUVIA GARDUNO MD, Ot Z85. 3 PERSONAL HISTORY OF MALIGNANT NEOPLASM O 02/20/2018 LLUVIA GARDUNO MD, Ot Z87.891 PERSONAL HISTORY OF NICOTINE DEPENDENCE 02/23/2018 CHUCK AQUINO, LEONELA K Ot E78.5 HYPERLIPIDEMIA, UNSPECIFIED 02/23/2018 CHUCK AQUINO, LEONELA K Ot I25.10 ATHSCL HEART DISEASE OF [place] CORONARY 02/23/2018 CHUCK AQUINO LEONELA K Ot I44.7 LEFT BUNDLE-BRANCH BLOCK, UNSPECIFIED 02/23/2018 CHUCK AQUINO LEONELA K Ot N18.3 CHRONIC KIDNEY DISEASE, STAGE 3 (MODERAT 02/23/2018 CHUCK AQUINO LEONELA K Ot R06.00 DYSPNEA, UNSPECIFIED 03/12/2018 CHUCK AQUINO LEONELA K Ot E78.5 HYPERLIPIDEMIA, UNSPECIFIED 03/12/2018 CHUCK AQUINO, LEONELA K Ot I25.10 ATHSCL HEART DISEASE OF [place] CORONARY 03/12/2018 CHUCK AQUINO LEONELA K Ot I44.7 LEFT BUNDLE-BRANCH BLOCK, UNSPECIFIED 03/12/2018 CHUCK AQUINO, LEONELA K Ot N18.3 CHRONIC KIDNEY DISEASE, STAGE 3 (MODERAT 03/12/2018 CHUCK AQUINO, LEONELA K Ot R06.00 DYSPNEA, UNSPECIFIED 04/28/2018 JIM SHER ANESTHESIA ASSISTANT Ot R29.6 REPEATED FALLS 04/28/2018 JIM SHER ANESTHESIA ASSISTANT Ot R 42 DIZZINESS AND GIDDINESS 04/28/2018 JIM SHER ANESTHESIA ASSISTANT Ot R 51 HEADACHE 04/28/2018 JIM SHER ANESTHESIA ASSISTANT Ot R90.82 WHITE MATTER DISEASE, UNSPECIFIED 04/28/2018 JIM SHERP Ot Z85.3 PERSONAL HISTORY OF MALIGNANT NEOPLASM O 05/07/2018 LLUVIA GARDUNO MD Ot Z48.812 ENCNTR FOR SURGICAL AFTCR FOLLOWING SURG 05/07/2018 LLUVIA GARDUNO MD Ot Z95. 5 PRESENCE OF CORONARY ANGIOPLASTY IMPLANT 05/18/2018 SHERJIM Alexander ANESTHESIA ASSISTANT Ot Z12.31 ENCNTR SCREEN MAMMOGRAM FOR MALIGNANT NE 05/19/2018 SHER JIM Alexander ANESTHESIA ASSISTANT Ot R29.6 REPEATED FALLS 05/19/2018 SHERJIM Alexander ANESTHESIA ASSISTANT Ot R 42 DIZZINESS AND GIDDINESS 05/19/2018 CHRISTOS JIM Alexander ANESTHESIA ASSISTANT Ot R 51 HEADACHE 05/19/2018 SHER JIM Alexander ANESTHESIA ASSISTANT Ot R90.82 WHITE MATTER DISEASE, UNSPECIFIED 05/19/2018 SHER JIM Alexander ANESTHESIA ASSISTANT Ot Z85.3 PERSONAL HISTORY OF MALIGNANT NEOPLASM O 05/25/2018 ABA LANDON AIRPLANE PATROLLER Ot J44.9 CHRONIC OBSTRUCTIVE PULMONARY DISEASE, U 05/25/2018 DIPESHABA LARIOS AIRPLANE PATROLLER Ot Z87.891 PERSONAL HISTORY OF NICOTINE DEPENDENCE 05/28/2018 DIPESHABA LARIOS AIRPLANE PATROLLER Ot Z87.891 PERSONAL HISTORY OF NICOTINE DEPENDENCE 05/28/2018 DIPESHABA LARIOS AIRPLANE PATROLLER Ot Z87.891 PERSONAL HISTORY OF NICOTINE DEPENDENCE 05/31/2018 CHRISTOS JIM Alexander ANESTHESIA ASSISTANT Ot Z12.31 ENCNTR SCREEN MAMMOGRAM FOR MALIGNANT NE 06/02/2018 SHER JIM Alexander ANESTHESIA ASSISTANT Ot Z12.31 ENCNTR SCREEN MAMMOGRAM FOR MALIGNANT NE 06/02/2018 SHER JIM Alexander ANESTHESIA ASSISTANT Ot Z85.3 PERSONAL HISTORY OF MALIGNANT NEOPLASM O 06/03/2018 SHER JIM Alexander ANESTHESIA ASSISTANT Ot R29.6 REPEATED FALLS 06/03/2018 HUNG SHERBELA Alexander ANESTHESIA ASSISTANT Ot R 42 DIZZINESS AND GIDDINESS 06/03/2018 HUNG SHERBELA Alexander ANESTHESIA ASSISTANT Ot R 51 HEADACHE 06/03/2018 SHER JIM Alexander ANESTHESIA ASSISTANT Ot R90.82 WHITE MATTER DISEASE, UNSPECIFIED 06/03/2018 CHRISTOS JIM Alexander ANESTHESIA ASSISTANT Ot Z85.3 PERSONAL HISTORY OF MALIGNANT NEOPLASM O 06/07/2018 YOSI BRINK Ot 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 06/07/2018 YOSI BRINK Ot E78.00 PURE HYPERCHOLESTEROLEMIA, UNSPECIFIED 06/07/2018 YOSI BRINK Ot E83.42 HYPOMAGNESEMIA 06/07/2018 YOSI BRINK Ot F03.90 UNSPECIFIED DEMENTIA WITHOUT BEHAVIORAL 06/07/2018 YOSI BRINK Mary Ot F41.9 ANXIETY DISORDER, UNSPECIFIED 06/07/2018 YOSI BRINK Mary Ot G25.81 RESTLESS LEGS SYNDROME 06/07/2018 YOSI BRINK Mary Ot I12.9 HYPERTENSIVE CHRONIC KIDNEY DISEASE W ST 06/07/2018 YOSI BRINK Mary Ot I25.10 ATHSCL HEART DISEASE OF [place] CORONARY 06/07/2018 YOSI BRINK Mary Ot J44.9 CHRONIC OBSTRUCTIVE PULMONARY DISEASE, U 06/07/2018 YOSI BRINK Mary Ot N18.3 CHRONIC KIDNEY DISEASE, STAGE 3 (MODERAT 06/07/2018 YOSI BRINK Mary Ot Z79.899 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 5 PRESENCE OF CORONARY ANGIOPLASTY IMPLANT 06/15/2018 ABA LANDON APRN Ot J44.9 CHRONIC OBSTRUCTIVE PULMONARY DISEASE, U 06/15/2018 ABA LANDON APRN Ot Z87.891 PERSONAL HISTORY OF NICOTINE DEPENDENCE 06/15/2018 LLUVIA GARDUNO MD Ot Z48.812 ENCNTR FOR SURGICAL AFTCR FOLLOWING SURG 06/15/2018 LLUVIA GARDUNO MD Ot Z95. 5 PRESENCE OF CORONARY ANGIOPLASTY IMPLANT 06/23/2018 JIM SHER Ot Z12.31 ENCNTR SCREEN MAMMOGRAM FOR MALIGNANT NE 06/23/2018 JIM SHERP Ot Z85.3 PERSONAL HISTORY OF MALIGNANT NEOPLASM O 07/01/2018 ABA LANDON APRN Ot J44.9 CHRONIC OBSTRUCTIVE PULMONARY DISEASE, U 07/01/2018 ABA LANDON APRN Ot Z87.891 PERSONAL HISTORY OF NICOTINE DEPENDENCE 07/07/2018 YOSI BRINK Mary Ot 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 07/07/2018 KEENA YOSI Hernandez Ot E78.00 PURE HYPERCHOLESTEROLEMIA, UNSPECIFIED 07/07/2018 KEENA YOSI Hernandez Ot E83.42 HYPOMAGNESEMIA 07/07/2018 KEENA YOSI Hernandez Ot F03.90 UNSPECIFIED DEMENTIA WITHOUT BEHAVIORAL 07/07/2018 KEENA YOSI Hernandez Ot F41.9 ANXIETY DISORDER, UNSPECIFIED 07/07/2018 KEENA YOSI Hernandez Ot G25.81 RESTLESS LEGS SYNDROME 07/07/2018 KEENA YOSI Hernandez Ot I12.9 HYPERTENSIVE CHRONIC KIDNEY DISEASE W ST 07/07/2018 KEENAYOSI Ot I25.10 ATHSCL HEART DISEASE OF [place] CORONARY 07/07/2018 KEENA YOSI Hernandez Ot J44.9 CHRONIC OBSTRUCTIVE PULMONARY DISEASE, U 07/07/2018 KEENA YOSI Hernandez Ot N18.3 CHRONIC KIDNEY DISEASE, STAGE 3 (MODERAT 07/07/2018 KEENAYOSI Ot Z79.899 OTHER LONGTERM (CURRENT) DRUG THERAPY 07/07/2018 KEENA YOSI Hernandez Ot Z85.3 PERSONAL HISTORY OF MALIGNANT NEOPLASM O 07/07/2018 KEENAYOSI Ot Z87.891 PERSONAL HISTORY OF NICOTINE DEPENDENCE 07/07/2018 KEENAYOSI Ot Z90.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 07/07/2018 KEENAYOSI Ot Z92.21 PERSONAL HISTORY OF ANTINEOPLASTIC CHEMO 07/14/2018 LLUVIA GARDUNO MD Ot Z48.812 ENCNTR FOR SURGICAL AFTCR FOLLOWING SURG 07/14/2018 LLUVIA GARDUNO MD Ot Z95. 5 PRESENCE OF CORONARY ANGIOPLASTY IMPLANT 07/25/2018 KEENA YOSI Hernandez Ot 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 07/25/2018 KEENA YOSI Hernandez Ot E78.00 PURE HYPERCHOLESTEROLEMIA, UNSPECIFIED 07/25/2018 KEENA YOSI Hernandez Ot E83.42 HYPOMAGNESEMIA 07/25/2018 KEENA YOSI Hernandez Ot F03.90 UNSPECIFIED DEMENTIA WITHOUT BEHAVIORAL 07/25/2018 KEENAYOSI Ot F41.9 ANXIETY DISORDER, UNSPECIFIED 07/25/2018 KEENAYOSI Ot G25.81 RESTLESS LEGS SYNDROME 07/25/2018 YOSI BRINK Mary Ot I12.9 HYPERTENSIVE CHRONIC KIDNEY DISEASE W ST 07/25/2018 KEENA YOSI Hernandez Ot I25.10 ATHSCL HEART DISEASE OF [place] CORONARY 07/25/2018 KEENA YOSI Hernandez Ot J44.9 CHRONIC OBSTRUCTIVE PULMONARY DISEASE, U 07/25/2018 KEENA JOSEROSIBEL Mary Ot N18.3 CHRONIC KIDNEY DISEASE, STAGE 3 (MODERAT 07/25/2018 KEENA YOSI Hernandez Ot Z51.11 ENCOUNTER FOR ANTINEOPLASTIC CHEMOTHERAP 07/25/2018 KEENA YOSI Hernandez Ot Z79.899 OTHER LONGTERM (CURRENT) DRUG THERAPY 07/25/2018 KEENA YOSI Hernandez Ot Z85.3 PERSONAL HISTORY OF MALIGNANT NEOPLASM O 07/25/2018 KEENA, YOSI Hernandez Ot Z87.891 PERSONAL HISTORY OF NICOTINE DEPENDENCE 07/25/2018 KEENA, YOSI Hernandez Ot Z90.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 07/25/2018 KEENAYOSI Ot Z92.21 PERSONAL HISTORY OF ANTINEOPLASTIC CHEMO 07/26/2018 KEENA YOSI Hernandez Ot 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 07/26/2018 KEENA YOSI Hernandez Ot E78.00 PURE HYPERCHOLESTEROLEMIA, UNSPECIFIED 07/26/2018 KEENA YOSI Hernandez Ot E83.42 HYPOMAGNESEMIA 07/26/2018 KEENA YOSI Hernandez Ot F03.90 UNSPECIFIED DEMENTIA WITHOUT BEHAVIORAL 07/26/2018 KEENA YOSI Hernandez Ot F41.9 ANXIETY DISORDER, UNSPECIFIED 07/26/2018 KEENA YOSI Hernandez Ot G25.81 RESTLESS LEGS SYNDROME 07/26/2018 KEENA YOSI Hernandez Ot I12.9 HYPERTENSIVE CHRONIC KIDNEY DISEASE W ST 07/26/2018 KEENA YOSI Hernandez Ot I25.10 ATHSCL HEART DISEASE OF [place] CORONARY 07/26/2018 KEENA YOSI Hernandez Ot J44.9 CHRONIC OBSTRUCTIVE PULMONARY DISEASE, U 07/26/2018 KEENA YOSI Hernandez Ot N18.3 CHRONIC KIDNEY DISEASE, STAGE 3 (MODERAT 07/26/2018 KEENAYOSI Ot Z51.11 ENCOUNTER FOR ANTINEOPLASTIC CHEMOTHERAP 07/26/2018 KEENAYOSI Ot Z79.899 OTHER EMBLEM FUSER TENDER (CURRENT) DRUG THERAPY 07/26/2018 YOSI BRINK Mary Ot Z85.3 PERSONAL HISTORY OF MALIGNANT NEOPLASM O 07/26/2018 YOSI BRINK Mary Ot Z87.891 PERSONAL HISTORY OF NICOTINE DEPENDENCE 07/26/2018 KEENA YOSI Hernandez Ot Z90.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 07/27/2018 KEENA JOSEROSIBEL Mary Ot 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 07/27/2018 KEENA YOSI Hernandez Ot E78.00 PURE HYPERCHOLESTEROLEMIA, UNSPECIFIED 07/27/2018 KEENA YOSI Hernandez Ot E83.42 HYPOMAGNESEMIA 07/27/2018 KEENA YOSI Hernandez Ot F03.90 UNSPECIFIED DEMENTIA WITHOUT BEHAVIORAL 07/27/2018 KEENA YOSI Hernandez Ot F41.9 ANXIETY DISORDER, UNSPECIFIED 07/27/2018 KEENA YOSI Hernandez Ot G25.81 RESTLESS LEGS SYNDROME 07/27/2018 KEENA YOSI Hernandez Ot I12.9 HYPERTENSIVE CHRONIC KIDNEY DISEASE W ST 07/27/2018 KEENA YOSI Hernandez Ot I25.10 ATHSCL HEART DISEASE OF [place] CORONARY 07/27/2018 KEENA YOSI Hernandez Ot J44.9 CHRONIC OBSTRUCTIVE PULMONARY DISEASE, U 07/27/2018 KEENA JOSEROSIBLE Mary Ot N18.3 CHRONIC KIDNEY DISEASE, STAGE 3 (MODERAT 07/27/2018 KEENA JOSEROSIBEL Mary Ot Z79.899 OTHER LONGTERM (CURRENT) DRUG THERAPY 07/27/2018 KEENA JOSEROSIBEL Mary Ot Z85.3 PERSONAL HISTORY OF MALIGNANT NEOPLASM O 07/27/2018 KEENA JOSEROSIBEL Mary Ot Z87.891 PERSONAL HISTORY OF NICOTINE DEPENDENCE 07/27/2018 KEENA YOSI Hernandez Ot Z90.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 07/27/2018 KEENA YOSI Hernandez Ot Z92.21 PERSONAL HISTORY OF ANTINEOPLASTIC CHEMO 07/30/2018 LLUVIA GARDUNO MD Ot Z48.812 ENCNTR FOR SURGICAL AFTCR FOLLOWING SURG 07/30/2018 LLUVIA GARDUNO MD Ot Z95. 5 PRESENCE OF CORONARY ANGIOPLASTY IMPLANT 08/09/2018 KEENAYOSI Ot 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 08/09/2018 KEENAYOSI Ot E78.00 PURE HYPERCHOLESTEROLEMIA, UNSPECIFIED 08/09/2018 KEENA JOSEROSIBEL Mary Ot E83.42 HYPOMAGNESEMIA 08/09/2018 KEENA YOSI Hernandez Ot F03.90 UNSPECIFIED DEMENTIA WITHOUT BEHAVIORAL 08/09/2018 KENEA YOSI Hernandez Ot F41.9 ANXIETY DISORDER, UNSPECIFIED 08/09/2018 KEENAYOSI Ot G25.81 RESTLESS LEGS SYNDROME 08/09/2018 KEENAYOSI Ot I12.9 HYPERTENSIVE CHRONIC KIDNEY DISEASE W ST 08/09/2018 KEENAYOSI Ot I25.10 ATHSCL HEART DISEASE OF [place] CORONARY 08/09/2018 KEEANYOSI Ot J44.9 CHRONIC OBSTRUCTIVE PULMONARY DISEASE, U 08/09/2018 KEENAYOSI Ot N18.3 CHRONIC KIDNEY DISEASE, STAGE 3 (MODERAT 08/09/2018 KEENAYOSI Ot Z51.11 ENCOUNTER FOR ANTINEOPLASTIC CHEMOTHERAP 08/09/2018 KEENAYOSI Ot Z79.899 OTHER EMBLEM FUSER TENDER (CURRENT) DRUG THERAPY 08/09/2018 KEENAYOSI Ot Z85.3 PERSONAL HISTORY OF MALIGNANT NEOPLASM O 08/09/2018 KEENAYOSI Ot Z87.891 PERSONAL HISTORY OF NICOTINE DEPENDENCE 08/09/2018 KEENAYOSI Ot Z90.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 08/09/2018 KEENAYOSI Ot Z92.21 PERSONAL HISTORY OF ANTINEOPLASTIC CHEMO 08/19/2018 LLUVIA GARDUNO MD, Ot Z48.812 ENCNTR FOR SURGICAL AFTCR FOLLOWING SURG 08/19/2018 LLUVIA GARDUNO MD Ot Z95. 5 PRESENCE OF CORONARY ANGIOPLASTY IMPLANT 08/31/2018 CLIVE NEVAREZ MD, Ot E78.5 HYPERLIPIDEMIA, UNSPECIFIED 08/31/2018 CLIVE NEVAREZ MD, Ot I12.9 HYPERTENSIVE CHRONIC KIDNEY DISEASE W ST 08/31/2018 CLIVE NEVAREZ MD, Ot I25.1 0 ATHSCL HEART DISEASE OF [place] CORONARY 08/31/2018 CLIVE NEVAREZ MD, Ot N18.9 CHRONIC KIDNEY DISEASE, UNSPECIFIED 09/01/2018 YOSI BRINK Ot 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 09/01/2018 YOSI BRINK Ot E78.00 PURE HYPERCHOLESTEROLEMIA, UNSPECIFIED 09/01/2018 JOSE BRINKAN N Ot E83.42 HYPOMAGNESEMIA 09/01/2018 KEENAYOSI Ot F03.90 UNSPECIFIED DEMENTIA WITHOUT BEHAVIORAL 09/01/2018 YOSI BRINK Ot F41.9 ANXIETY DISORDER, UNSPECIFIED 09/01/2018 KEENAYOSI Ot G25.81 RESTLESS LEGS SYNDROME 09/01/2018 KEENAYOSI Ot I12.9 HYPERTENSIVE CHRONIC KIDNEY DISEASE W ST 09/01/2018 YOSI BRINK Ot I25.10 ATHSCL HEART DISEASE OF [place] CORONARY 09/01/2018 KEENAYOSI Ot J44.9 CHRONIC OBSTRUCTIVE PULMONARY DISEASE, U 09/01/2018 KEENA, YOSI Hernandez Ot N18.3 CHRONIC KIDNEY DISEASE, STAGE 3 (MODERAT 09/01/2018 YOSI BRINK Ot Z51.11 ENCOUNTER FOR ANTINEOPLASTIC CHEMOTHERAP 09/01/2018 YOSI BRINK Ot Z79.899 OTHER EMBLEM FUSER TENDER (CURRENT) DRUG THERAPY 09/01/2018 YOSI BRINK Ot Z85.3 PERSONAL HISTORY OF MALIGNANT NEOPLASM O 09/01/2018 KEENAYOSI Ot Z87.891 PERSONAL HISTORY OF NICOTINE DEPENDENCE 09/01/2018 YOSI BRINK Ot Z90.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 09/01/2018 YOSI BRINK Ot Z92.21 PERSONAL HISTORY OF ANTINEOPLASTIC CHEMO 09/06/2018 KEENAYOSI Ot 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 09/06/2018 YOSI BRINK Ot E78.00 PURE HYPERCHOLESTEROLEMIA, UNSPECIFIED 09/06/2018 YOSI BRINK Ot E83.42 HYPOMAGNESEMIA 09/06/2018 KEENAYOSI Ot F03.90 UNSPECIFIED DEMENTIA WITHOUT BEHAVIORAL 09/06/2018 YOSI BRINK Ot F41.9 ANXIETY DISORDER, UNSPECIFIED 09/06/2018 YOSI BRINK Ot G25.81 RESTLESS LEGS SYNDROME 09/06/2018 YOSI BRINK Ot I12.9 HYPERTENSIVE CHRONIC KIDNEY DISEASE W ST 09/06/2018 YOSI BRINK Ot I25.10 ATHSCL HEART DISEASE OF [place] CORONARY 09/06/2018 YOSI BRINK Ot J44.9 CHRONIC OBSTRUCTIVE PULMONARY DISEASE, U 09/06/2018 KEENA YOSI Hernandez Ot N18.3 CHRONIC KIDNEY DISEASE, STAGE 3 (MODERAT 09/06/2018 KEENA, YOSI Hernandez Ot Z51.11 ENCOUNTER FOR ANTINEOPLASTIC CHEMOTHERAP 09/06/2018 KEENA YOSI Hernandez Ot Z79.899 OTHER EMBLEM FUSER TENDER (CURRENT) DRUG THERAPY 09/06/2018 KEENA YOSI Hernandez Ot Z85.3 PERSONAL HISTORY OF MALIGNANT NEOPLASM O 09/06/2018 KEENA YOSI Hernandez Ot Z87.891 PERSONAL HISTORY OF NICOTINE DEPENDENCE 09/06/2018 KEENA YOSI Hernandez Ot Z90.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 09/06/2018 KEENA, YOSI Hernandez Ot Z92.21 PERSONAL HISTORY OF ANTINEOPLASTIC CHEMO 09/06/2018 CLIVE NEVAREZ MD, Ot E78.5 HYPERLIPIDEMIA, UNSPECIFIED 09/06/2018 CLIVE NEVAREZ MD, Ot I12.9 HYPERTENSIVE CHRONIC KIDNEY DISEASE W ST 09/06/2018 CLIVE NEVAREZ MD, Ot I25.1 0 ATHSCL HEART DISEASE OF [place] CORONARY 09/06/2018 CLIVE NEVAREZ MD, Ot N18.9 CHRONIC KIDNEY DISEASE, UNSPECIFIED 09/12/2018 LLUVIA GARDUNO MD Ot Z48.812 ENCNTR FOR SURGICAL AFTCR FOLLOWING SURG 09/12/2018 LLUVIA GARDUNO MD Ot Z95. 5 PRESENCE OF CORONARY ANGIOPLASTY IMPLANT 09/13/2018 LLUVIA GARDUNO MD Ot Z48.812 ENCNTR FOR SURGICAL AFTCR FOLLOWING SURG 09/13/2018 LLUVIA GARDUNO MD Ot Z95. 5 PRESENCE OF CORONARY ANGIOPLASTY IMPLANT 09/22/2018 CLIVE NEVAREZ MD, Ot E78.5 HYPERLIPIDEMIA, UNSPECIFIED 09/22/2018 CLIVE NEVAREZ MD, Ot I12.9 HYPERTENSIVE CHRONIC KIDNEY DISEASE W ST 09/22/2018 CLIVE NEVAREZ MD, Ot I25.1 0 ATHSCL HEART DISEASE OF [place] CORONARY 09/22/2018 CLIVE NEVAREZ MD, Ot N18.9 CHRONIC KIDNEY DISEASE, UNSPECIFIED 10/24/2018 YOSI BRINK Ot 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 10/24/2018 YOSI BRINK Ot E78.00 PURE HYPERCHOLESTEROLEMIA, UNSPECIFIED 10/24/2018 YOSI BRINK Ot E83.42 HYPOMAGNESEMIA 10/24/2018 YOSI BRINK Mary Ot F03.90 UNSPECIFIED DEMENTIA WITHOUT BEHAVIORAL 10/24/2018 KEENA YOSI Hernandez Ot F41.9 ANXIETY DISORDER, UNSPECIFIED 10/24/2018 KEENA YOSI Hernandez Ot G25.81 RESTLESS LEGS SYNDROME 10/24/2018 KEENA YOSI Hernandez Ot I12.9 HYPERTENSIVE CHRONIC KIDNEY DISEASE W ST 10/24/2018 KEENA YOSI Hernandez Ot I25.10 ATHSCL HEART DISEASE OF [place] CORONARY 10/24/2018 KEENA YOSI Hernandez Ot J44.9 CHRONIC OBSTRUCTIVE PULMONARY DISEASE, U 10/24/2018 KEENA YOSI Hernandez Ot N18.3 CHRONIC KIDNEY DISEASE, STAGE 3 (MODERAT 10/24/2018 KEENAYOSI Ot Z51.11 ENCOUNTER FOR ANTINEOPLASTIC CHEMOTHERAP 10/24/2018 KEENAYOSI Ot Z79.899 OTHER LONGTERM (CURRENT) DRUG THERAPY 10/24/2018 KEENAYOSI Ot Z85.3 PERSONAL HISTORY OF MALIGNANT NEOPLASM O 10/24/2018 KEENAYOSI Ot Z87.891 PERSONAL HISTORY OF NICOTINE DEPENDENCE 10/24/2018 KEENA YOSI Hernandez Ot Z90.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 10/24/2018 KEENA, YOSI Hernandez Ot Z92.21 PERSONAL HISTORY OF ANTINEOPLASTIC CHEMO 10/29/2018 KEENA YOSI Hernandez Ot 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 10/29/2018 KEENA YOSI Hernandez Ot E78.00 PURE HYPERCHOLESTEROLEMIA, UNSPECIFIED 10/29/2018 KEENA YOSI Hernandez Ot E83.42 HYPOMAGNESEMIA 10/29/2018 KEENA YOSI Hernandez Ot F03.90 UNSPECIFIED DEMENTIA WITHOUT BEHAVIORAL 10/29/2018 KEENA YOSI Hernandez Ot F41.9 ANXIETY DISORDER, UNSPECIFIED 10/29/2018 KEENAYOSI Ot G25.81 RESTLESS LEGS SYNDROME 10/29/2018 KEENAYOSI Ot I12.9 HYPERTENSIVE CHRONIC KIDNEY DISEASE W ST 10/29/2018 KEENAYOSI Ot I25.10 ATHSCL HEART DISEASE OF [place] CORONARY 10/29/2018 KEENAYOSI Ot J44.9 CHRONIC OBSTRUCTIVE PULMONARY DISEASE, U 10/29/2018 KEENA, BOBAN N Ot N18.3 CHRONIC KIDNEY DISEASE, STAGE 3 (MODERAT 10/29/2018 JOSE BRINKROSIBEL N Ot Z51.11 ENCOUNTER FOR ANTINEOPLASTIC CHEMOTHERAP 10/29/2018 KEENA YOSI N Ot Z79.899 OTHER EMBLEM FUSER TENDER (CURRENT) DRUG THERAPY 10/29/2018 KEENA YOSI N Ot Z85.3 PERSONAL HISTORY OF MALIGNANT NEOPLASM O 10/29/2018 KEENA YOSI N Ot Z87.891 PERSONAL HISTORY OF NICOTINE DEPENDENCE 10/29/2018 KEENA YOSI N Ot Z90.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 10/29/2018 KEENA YOSI N Ot Z92.21 PERSONAL HISTORY OF ANTINEOPLASTIC CHEMO 11/01/2018 KEENA, YOSI Hernandez Ot 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 11/01/2018 KEENA YOSI N Ot E78.00 PURE HYPERCHOLESTEROLEMIA, UNSPECIFIED 11/01/2018 KEENA YOSI N Ot E83.42 HYPOMAGNESEMIA 11/01/2018 KEENA, YOSI Hernandez Ot F03.90 UNSPECIFIED DEMENTIA WITHOUT BEHAVIORAL 11/01/2018 KEENA YOSI N Ot F41.9 ANXIETY DISORDER, UNSPECIFIED 11/01/2018 KEENA YOSI N Ot G25.81 RESTLESS LEGS SYNDROME 11/01/2018 KEENAYOSI Ot I12.9 HYPERTENSIVE CHRONIC KIDNEY DISEASE W ST 11/01/2018 KEENA YOSI N Ot I25.10 ATHSCL HEART DISEASE OF [place] CORONARY 11/01/2018 KEENA, YOSI Hernandez Ot J44.9 CHRONIC OBSTRUCTIVE PULMONARY DISEASE, U 11/01/2018 KEENA YOSI Hernandez Ot N18.3 CHRONIC KIDNEY DISEASE, STAGE 3 (MODERAT 11/01/2018 KEENA JOSEROSIBEL Mary Ot Z51.11 ENCOUNTER FOR ANTINEOPLASTIC CHEMOTHERAP 11/01/2018 KEENA YOSI N Ot Z79.899 OTHER LONGTERM (CURRENT) DRUG THERAPY 11/01/2018 KEENAYOSI N Ot Z85.3 PERSONAL HISTORY OF MALIGNANT NEOPLASM O 11/01/2018 KEENA, YOSI N Ot Z87.891 PERSONAL HISTORY OF NICOTINE DEPENDENCE 11/01/2018 KEENA, YOSI N Ot Z90.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 11/01/2018 KEENAYOSI N Ot Z92.21 PERSONAL HISTORY OF ANTINEOPLASTIC CHEMO 12/08/2018 KEENA JOSEROSIBEL Mary Ot 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 12/08/2018 KEENA JOSEROSIBEL Mary Ot E78.00 PURE HYPERCHOLESTEROLEMIA, UNSPECIFIED 12/08/2018 KEENA YOSI Hernandez Ot E83.42 HYPOMAGNESEMIA 12/08/2018 KEENA YOSI Hernandez Ot F03.90 UNSPECIFIED DEMENTIA WITHOUT BEHAVIORAL 12/08/2018 KEENA, YOSI Hernandez Ot F41.9 ANXIETY DISORDER, UNSPECIFIED 12/08/2018 KEENA YOSI Hernandez Ot G25.81 RESTLESS LEGS SYNDROME 12/08/2018 KEENA, YOSI Hernandez Ot I12.9 HYPERTENSIVE CHRONIC KIDNEY DISEASE W ST 12/08/2018 KEENAYOSI Ot I25.10 ATHSCL HEART DISEASE OF [place] CORONARY 12/08/2018 KEENA, YOSI Hernandez Ot J44.9 CHRONIC OBSTRUCTIVE PULMONARY DISEASE, U 12/08/2018 KEENA, YOSI Hernandez Ot N18.3 CHRONIC KIDNEY DISEASE, STAGE 3 (MODERAT 12/08/2018 KEENA YOSI Hernandez Ot Z51.11 ENCOUNTER FOR ANTINEOPLASTIC CHEMOTHERAP 12/08/2018 KEENA YOSI Hernandez Ot Z79.899 OTHER LONGTERM (CURRENT) DRUG THERAPY 12/08/2018 KEEANYOSI Ot Z85.3 PERSONAL HISTORY OF MALIGNANT NEOPLASM O 12/08/2018 KEENA YOSI Hernandez Ot Z87.891 PERSONAL HISTORY OF NICOTINE DEPENDENCE 12/08/2018 KEENA, YOSI Hernandez Ot Z90.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 12/08/2018 KEENA, YOSI Hernandez Ot Z92.21 PERSONAL HISTORY OF ANTINEOPLASTIC CHEMO 12/21/2018 KEENA JOSEROSIBEL Mary Ot 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 12/21/2018 KEENA YOSI Hernandez Ot E78.00 PURE HYPERCHOLESTEROLEMIA, UNSPECIFIED 12/21/2018 KEENA YOSI Hernandez Ot E83.42 HYPOMAGNESEMIA 12/21/2018 KEENA YOSI N Ot F03.90 UNSPECIFIED DEMENTIA WITHOUT BEHAVIORAL 12/21/2018 KEENA YOSI Hernandez Ot F41.9 ANXIETY DISORDER, UNSPECIFIED 12/21/2018 KEENAYOSI Ot G25.81 RESTLESS LEGS SYNDROME 12/21/2018 KEENAYOSI Ot I12.9 HYPERTENSIVE CHRONIC KIDNEY DISEASE W ST 12/21/2018 KEENA, YOSI Hernandez Ot I25.10 ATHSCL HEART DISEASE OF [place] CORONARY 12/21/2018 KEENA, YOSI Hernandez Ot J44.9 CHRONIC OBSTRUCTIVE PULMONARY DISEASE, U 12/21/2018 KEENA YOSI Hernandez Ot N18.3 CHRONIC KIDNEY DISEASE, STAGE 3 (MODERAT 12/21/2018 YOSI BRINK Ot Z51.11 ENCOUNTER FOR ANTINEOPLASTIC CHEMOTHERAP 12/21/2018 KEENAYOSI N Ot Z79.899 OTHER LONGTERM (CURRENT) DRUG THERAPY 12/21/2018 KEENAYOSI Ot Z85.3 PERSONAL HISTORY OF MALIGNANT NEOPLASM O 12/21/2018 YOSI BRINK Ot Z87.891 PERSONAL HISTORY OF NICOTINE DEPENDENCE 12/21/2018 YOSI BRINK Ot Z90.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 12/21/2018 YOSI BRINK Ot Z92.21 PERSONAL HISTORY OF ANTINEOPLASTIC CHEMO 12/29/2018 YOSI BRINK Ot 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 12/29/2018 KEENAYOSI Ot E78.00 PURE HYPERCHOLESTEROLEMIA, UNSPECIFIED 12/29/2018 KEENAYOSI Ot E83.42 HYPOMAGNESEMIA 12/29/2018 KEENAYOSI Ot F03.90 UNSPECIFIED DEMENTIA WITHOUT BEHAVIORAL 12/29/2018 KEENAYOSI Ot F41.9 ANXIETY DISORDER, UNSPECIFIED 12/29/2018 YOSI BRINK Ot G25.81 RESTLESS LEGS SYNDROME 12/29/2018 YOSI BRINK Ot I12.9 HYPERTENSIVE CHRONIC KIDNEY DISEASE W ST 12/29/2018 KEENAYOSI Ot I25.10 ATHSCL HEART DISEASE OF [place] CORONARY 12/29/2018 KEENAYOSI Ot J44.9 CHRONIC OBSTRUCTIVE PULMONARY DISEASE, U 12/29/2018 KEENA, YOSI Hernandez Ot N18.3 CHRONIC KIDNEY DISEASE, STAGE 3 (MODERAT 12/29/2018 YOSI BRINK Ot Z51.11 ENCOUNTER FOR ANTINEOPLASTIC CHEMOTHERAP 12/29/2018 YOSI BRINK Ot Z79.899 OTHER LONGTERM (CURRENT) DRUG THERAPY 12/29/2018 YOSI BRINK N Ot Z85.3 PERSONAL HISTORY OF MALIGNANT NEOPLASM O 12/29/2018 KEENAYOSI Ot Z87.891 PERSONAL HISTORY OF NICOTINE DEPENDENCE 12/29/2018 KEENAYOSI Ot Z90.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 12/29/2018 KEENAYOSI Ot Z92.21 PERSONAL HISTORY OF ANTINEOPLASTIC CHEMO 01/23/2019 KEENAYOSI Ot 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 01/23/2019 KEENAYOSI Ot E78.00 PURE HYPERCHOLESTEROLEMIA, UNSPECIFIED 01/23/2019 KEENAYOSI Ot E83.42 HYPOMAGNESEMIA 01/23/2019 KEENAYOSI Ot F03.90 UNSPECIFIED DEMENTIA WITHOUT BEHAVIORAL 01/23/2019 KEENAYOSI Ot F41.9 ANXIETY DISORDER, UNSPECIFIED 01/23/2019 KEENAYOSI Ot G25.81 RESTLESS LEGS SYNDROME 01/23/2019 YOSI BRINK Ot I12.9 HYPERTENSIVE CHRONIC KIDNEY DISEASE W ST 01/23/2019 KEENAYOSI Ot I25.10 ATHSCL HEART DISEASE OF [place] CORONARY 01/23/2019 KEENAYOSI Ot J44.9 CHRONIC OBSTRUCTIVE PULMONARY DISEASE, U 01/23/2019 KEENAYOSI Ot N18.3 CHRONIC KIDNEY DISEASE, STAGE 3 (MODERAT 01/23/2019 KEENAYOSI Ot Z51.11 ENCOUNTER FOR ANTINEOPLASTIC CHEMOTHERAP 01/23/2019 YOSI BRINK Ot Z79.899 OTHER LONGTERM (CURRENT) DRUG THERAPY 01/23/2019 KEENAYOSI Ot Z85.3 PERSONAL HISTORY OF MALIGNANT NEOPLASM O 01/23/2019 KEENAYOSI Ot Z87.891 PERSONAL HISTORY OF NICOTINE DEPENDENCE 01/23/2019 YOSI BRINK Ot Z90.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 01/23/2019 YOSI BRINK Ot Z92.21 PERSONAL HISTORY OF ANTINEOPLASTIC CHEMO 01/24/2019 KEENAYOSI Ot 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 01/24/2019 KEENAYOSI Ot E78.00 PURE HYPERCHOLESTEROLEMIA, UNSPECIFIED 01/24/2019 YOSI BRINK Ot E83.42 HYPOMAGNESEMIA 01/24/2019 KEENA YOSI Hernandez Ot F03.90 UNSPECIFIED DEMENTIA WITHOUT BEHAVIORAL 01/24/2019 KEENA YOSI Hernandez Ot F41.9 ANXIETY DISORDER, UNSPECIFIED 01/24/2019 KEENA YOSI Hernandez Ot G25.81 RESTLESS LEGS SYNDROME 01/24/2019 KEENA YOSI Hernandez Ot I12.9 HYPERTENSIVE CHRONIC KIDNEY DISEASE W ST 01/24/2019 KEENA, YOSI Hernandez Ot I25.10 ATHSCL HEART DISEASE OF [place] CORONARY 01/24/2019 KEENAYOSI Ot J44.9 CHRONIC OBSTRUCTIVE PULMONARY DISEASE, U 01/24/2019 KEENA YOSI Hernandez Ot N18.3 CHRONIC KIDNEY DISEASE, STAGE 3 (MODERAT 01/24/2019 KEENAYOSI Ot Z51.11 ENCOUNTER FOR ANTINEOPLASTIC CHEMOTHERAP 01/24/2019 KEENAYOSI Ot Z79.899 OTHER EMBLEM FUSER TENDER (CURRENT) DRUG THERAPY 01/24/2019 KEENAYOSI Ot Z85.3 PERSONAL HISTORY OF MALIGNANT NEOPLASM O 01/24/2019 KEENAYOSI Ot Z87.891 PERSONAL HISTORY OF NICOTINE DEPENDENCE 01/24/2019 KEENA, YOSI Hernandez Ot Z90.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 01/24/2019 KEENAYOSI Ot Z92.21 PERSONAL HISTORY OF ANTINEOPLASTIC CHEMO 01/29/2019 KEENAYOSI Ot 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 01/29/2019 KEENAYOSI Ot E78.00 PURE HYPERCHOLESTEROLEMIA, UNSPECIFIED 01/29/2019 KEENAYOSI Ot E83.42 HYPOMAGNESEMIA 01/29/2019 KEENAYOSI Ot F03.90 UNSPECIFIED DEMENTIA WITHOUT BEHAVIORAL 01/29/2019 KEENAYOSI Ot F41.9 ANXIETY DISORDER, UNSPECIFIED 01/29/2019 KEENAYOSI Ot G25.81 RESTLESS LEGS SYNDROME 01/29/2019 KEENAYOSI Ot I12.9 HYPERTENSIVE CHRONIC KIDNEY DISEASE W ST 01/29/2019 KEENAYOSI Ot I25.10 ATHSCL HEART DISEASE OF [place] CORONARY 01/29/2019 YOSI BRINK Ot J44.9 CHRONIC OBSTRUCTIVE PULMONARY DISEASE, U 01/29/2019 YOSI BRINK N Ot N18.3 CHRONIC KIDNEY DISEASE, STAGE 3 (MODERAT 01/29/2019 KEENAYOSI RUIZ N Ot Z51.11 ENCOUNTER FOR ANTINEOPLASTIC CHEMOTHERAP 01/29/2019 YOSI BRINK N Ot Z79.899 OTHER EMBLEM FUSER TENDER (CURRENT) DRUG THERAPY 01/29/2019 YOSI BRINK N Ot Z85.3 PERSONAL HISTORY OF MALIGNANT NEOPLASM O 01/29/2019 KEENA JOSEROSIBEL N Ot Z87.891 PERSONAL HISTORY OF NICOTINE DEPENDENCE 01/29/2019 KEENA, JOSEROSIBEL N Ot Z90.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 01/29/2019 KEENA JOSEROSIBEL N Ot Z92.21 PERSONAL HISTORY OF ANTINEOPLASTIC CHEMO 02/17/2019 KEENA, YOSI N Ot 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 02/17/2019 KEENA JOSEROSIBEL N Ot E78.00 PURE HYPERCHOLESTEROLEMIA, UNSPECIFIED 02/17/2019 KEENA, YOSI N Ot E83.42 HYPOMAGNESEMIA 02/17/2019 KEENA, JOSEROSIBEL N Ot F03.90 UNSPECIFIED DEMENTIA WITHOUT BEHAVIORAL 02/17/2019 YOSI BRINK N Ot F41.9 ANXIETY DISORDER, UNSPECIFIED 02/17/2019 YOSI BRINK N Ot G25.81 RESTLESS LEGS SYNDROME 02/17/2019 KEENAJOSEROSIBEL N Ot I12.9 HYPERTENSIVE CHRONIC KIDNEY DISEASE W ST 02/17/2019 KEENA JOSEROSIBEL N Ot I25.10 ATHSCL HEART DISEASE OF [place] CORONARY 02/17/2019 KEENA, JOSEROSIBEL N Ot J44.9 CHRONIC OBSTRUCTIVE PULMONARY DISEASE, U 02/17/2019 YOSI BRINK N Ot N18.3 CHRONIC KIDNEY DISEASE, STAGE 3 (MODERAT 02/17/2019 YOSI BRINK N Ot Z51.11 ENCOUNTER FOR ANTINEOPLASTIC CHEMOTHERAP 02/17/2019 KEENA, JOSEROSIBEL N Ot Z79.899 OTHER EMBLEM FUSER TENDER (CURRENT) DRUG THERAPY 02/17/2019 KEENA, JOSEROSIBEL N Ot Z85.3 PERSONAL HISTORY OF MALIGNANT NEOPLASM O 02/17/2019 KEENAYOSI RUIZ N Ot Z87.891 PERSONAL HISTORY OF NICOTINE DEPENDENCE 02/17/2019 KEENAYOSI N Ot Z90.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 02/17/2019 YOSI BRINK Mary Ot Z92.21 PERSONAL HISTORY OF ANTINEOPLASTIC CHEMO 03/07/2019 YOSI BRINK Mary Ot 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 03/07/2019 YOSI BRINK Mary Ot E78.00 PURE HYPERCHOLESTEROLEMIA, UNSPECIFIED 03/07/2019 YOSI BRINK Mary Ot E83.42 HYPOMAGNESEMIA 03/07/2019 KEENA JOSEROSIBEL Mary Ot F03.90 UNSPECIFIED DEMENTIA WITHOUT BEHAVIORAL 03/07/2019 KEENA JOSEROSIBEL Mary Ot F41.9 ANXIETY DISORDER, UNSPECIFIED 03/07/2019 YOSI BRINK Mary Ot G25.81 RESTLESS LEGS SYNDROME 03/07/2019 YOSI BRINK Mary Ot I12.9 HYPERTENSIVE CHRONIC KIDNEY DISEASE W ST 03/07/2019 YOSI BRINK Mary Ot I25.10 ATHSCL HEART DISEASE OF [place] CORONARY 03/07/2019 YOSI BRINK Mary Ot J44.9 CHRONIC OBSTRUCTIVE PULMONARY DISEASE, U 03/07/2019 YOSI BRINK Mary Ot N18.3 CHRONIC KIDNEY DISEASE, STAGE 3 (MODERAT 03/07/2019 YOSI BRINK Mary Ot Z79.899 OTHER LONGTERM (CURRENT) DRUG THERAPY 03/07/2019 YOSI BRINK Mary Ot Z85.3 PERSONAL HISTORY OF MALIGNANT NEOPLASM O 03/07/2019 YOSI BRINK Mary Ot Z87.891 PERSONAL HISTORY OF NICOTINE DEPENDENCE 03/07/2019 YOSI BRINK Mary Ot Z90.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 03/07/2019 YOSI BRINK Mary Ot Z92.21 PERSONAL HISTORY OF ANTINEOPLASTIC CHEMO 04/12/2019 LEONELA JAMES Ot E78.00 PURE HYPERCHOLESTEROLEMIA, UNSPECIFIED 04/12/2019 LEONELA JAMES Ot I25.10 ATHSCL HEART DISEASE OF [place] CORONARY 04/12/2019 LEONELA JAMES Ot I34.0 NONRHEUMATIC MITRAL (VALVE) INSUFFICIENC 04/12/2019 LEONELA JAMES Ot I44.7 LEFT BUNDLE-BRANCH BLOCK, UNSPECIFIED 04/12/2019 LEONELA JAMES Ot K21.9 GASTRO-ESOPHAGEAL REFLUX DISEASE WITHOUT 04/12/2019 LEONELA JAMES Ot R06.02 SHORTNESS OF BREATH 04/15/2019 LLUVIA GARDUNO MD, Ot E78. 00 PURE HYPERCHOLESTEROLEMIA, UNSPECIFIED 04/15/2019 LLUVIA GARDUNO MD, Ot E78. 5 HYPERLIPIDEMIA, UNSPECIFIED 04/15/2019 LLUVIA GARDUNO MD Ot E83. 42 HYPOMAGNESEMIA 04/15/2019 LLUVIA GARDUNO MD Ot F41. 9 ANXIETY DISORDER, UNSPECIFIED 04/15/2019 LLUVIA GARDUNO MD, Ot G47. 33 OBSTRUCTIVE SLEEP APNEA (ADULT) (PEDIATR 04/15/2019 LLUVIA GARDUNO MD, Ot I12. 9 HYPERTENSIVE CHRONIC KIDNEY DISEASE W ST 04/15/2019 LLUVIA GARDUNO MD, Ot I25. 10 ATHSCL HEART DISEASE OF [place] CORONARY 04/15/2019 LLUVIA GARDUNO MD, Ot I44. 7 LEFT BUNDLE-BRANCH BLOCK, UNSPECIFIED 04/15/2019 LLUVIA GARDUNO MD Ot I65. 29 OCCLUSION AND STENOSIS OF UNSPECIFIED CA 04/15/2019 LLUVIA GARDUNO MD, Ot J44. 9 CHRONIC OBSTRUCTIVE PULMONARY DISEASE, U 04/15/2019 LLUVIA GARDUNO MD, Ot K21. 9 GASTRO-ESOPHAGEAL REFLUX DISEASE WITHOUT 04/15/2019 LLUVIA GARDUNO MD, Ot M19. 90 UNSPECIFIED OSTEOARTHRITIS, UNSPECIFIED 04/15/2019 LLUVIA GARDUNO MD, Ot N18. 3 CHRONIC KIDNEY DISEASE, STAGE 3 (MODERAT 04/15/2019 LLUVIA GARDUNO MD, Ot Z79. 82 LONGTERM (CURRENT) USE OF ASPIRIN 04/15/2019 LLUVIA GARDUNO MD, Ot Z79.899 OTHER EMBLEM FUSER TENDER (CURRENT) DRUG THERAPY 04/15/2019 LLUVIA GARDUNO MD, Ot Z82. 3 FAMILY HISTORY OF STROKE 04/15/2019 LLUVIA GARDUNO MD Ot Z82. 49 FAMILY HX OF ISCHEM HEART DIS AND OTH DI 04/15/2019 LLUVIA GARDUNO MD, Ot Z85. 3 PERSONAL HISTORY OF MALIGNANT NEOPLASM O 04/15/2019 LLUVIA GARDUNO MD Ot Z85. 6 PERSONAL HISTORY OF LEUKEMIA 04/15/2019 LLUVIA GARDUNO MD Ot Z87.891 PERSONAL HISTORY OF NICOTINE DEPENDENCE 04/19/2019 LAUREEN MD, BASHAR J Ot E78. 00 PURE HYPERCHOLESTEROLEMIA, UNSPECIFIED 04/19/2019 LLUVIA GARDUNO MD, Ot E78. 5 HYPERLIPIDEMIA, UNSPECIFIED 04/19/2019 LLUVIA GARDUNO MD Ot E83. 42 HYPOMAGNESEMIA 04/19/2019 LLUVIA GARDUNO MD Ot F41. 9 ANXIETY DISORDER, UNSPECIFIED 04/19/2019 LLUVIA GARDUNO MD Ot G47. 33 OBSTRUCTIVE SLEEP APNEA (ADULT) (PEDIATR 04/19/2019 LLUVIA GARDUNO MD Ot I12. 9 HYPERTENSIVE CHRONIC KIDNEY DISEASE W ST 04/19/2019 LLUVIA GARDUNO MD Ot I25. 10 ATHSCL HEART DISEASE OF [place] CORONARY 04/19/2019 LLUVIA GARDUNO MD Ot I44. 7 LEFT BUNDLE-BRANCH BLOCK, UNSPECIFIED 04/19/2019 LLUVIA GARDUNO MD Ot I65. 29 OCCLUSION AND STENOSIS OF UNSPECIFIED CA 04/19/2019 LLUVIA GARDUNO MD, Ot J44. 9 CHRONIC OBSTRUCTIVE PULMONARY DISEASE, U 04/19/2019 LLUVIA GARDUNO MD Ot K21. 9 GASTRO-ESOPHAGEAL REFLUX DISEASE WITHOUT 04/19/2019 LLUVIA GARDUNO MD Ot M19. 90 UNSPECIFIED OSTEOARTHRITIS, UNSPECIFIED 04/19/2019 LLUVIA GARDUNO MD Ot N18. 3 CHRONIC KIDNEY DISEASE, STAGE 3 (MODERAT 04/19/2019 LLUVIA GARDUNO MD Ot Z79. 82 EMBLEM FUSER TENDER (CURRENT) USE OF ASPIRIN 04/19/2019 LLUVIA GARDUNO MD Ot Z79.899 OTHER EMBLEM FUSER TENDER (CURRENT) DRUG THERAPY 04/19/2019 LLUVIA GARDUNO MD, Ot Z82. 3 FAMILY HISTORY OF STROKE 04/19/2019 LLUVIA GARDUNO MD Ot Z82. 49 FAMILY HX OF ISCHEM HEART DIS AND OTH DI 04/19/2019 LLUVIA GARDUNO MD Ot Z85. 3 PERSONAL HISTORY OF MALIGNANT NEOPLASM O 04/19/2019 LLUVIA GARDUNO MD Ot Z85. 6 PERSONAL HISTORY OF LEUKEMIA 04/19/2019 LLUVIA GRADUNO MD Ot Z87.891 PERSONAL HISTORY OF NICOTINE DEPENDENCE 04/21/2019 LLUVIA GARDUNO MD Ot E78. 00 PURE HYPERCHOLESTEROLEMIA, UNSPECIFIED 04/21/2019 LLUVIA GARDUNO MD, Ot E78. 5 HYPERLIPIDEMIA, UNSPECIFIED 04/21/2019 LLUVIA GARDUNO MD Ot E83. 42 HYPOMAGNESEMIA 04/21/2019 LLUVIA GARDUNO MD Ot F41. 9 ANXIETY DISORDER, UNSPECIFIED 04/21/2019 LLUVIA GARDUNO MD Ot G47. 33 OBSTRUCTIVE SLEEP APNEA (ADULT) (PEDIATR 04/21/2019 LLUVIA GARDUNO MD Ot I12. 9 HYPERTENSIVE CHRONIC KIDNEY DISEASE W ST 04/21/2019 LLUVIA GARDUNO MD Ot I25. 10 ATHSCL HEART DISEASE OF [place] CORONARY 04/21/2019 LLUVIA GARDUNO MD Ot I44. 7 LEFT BUNDLE-BRANCH BLOCK, UNSPECIFIED 04/21/2019 LLUVIA GARDUNO MD Ot I65. 29 OCCLUSION AND STENOSIS OF UNSPECIFIED CA 04/21/2019 LLUVIA GARDUNO MD, Ot J44. 9 CHRONIC OBSTRUCTIVE PULMONARY DISEASE, U 04/21/2019 LLUVIA GARDUNO MD Ot K21. 9 GASTRO-ESOPHAGEAL REFLUX DISEASE WITHOUT 04/21/2019 LLUVIA GARDUNO MD Ot M19. 90 UNSPECIFIED OSTEOARTHRITIS, UNSPECIFIED 04/21/2019 LLUVIA GARDUNO MD Ot N18. 3 CHRONIC KIDNEY DISEASE, STAGE 3 (MODERAT 04/21/2019 LLUVIA GARDUNO MD Ot Z79. 82 LONGTERM (CURRENT) USE OF ASPIRIN 04/21/2019 LLUVIA GARDUNO MD Ot Z79.899 OTHER EMBLEM FUSER TENDER (CURRENT) DRUG THERAPY 04/21/2019 LLUVIA GARDUNO MD, Ot Z82. 3 FAMILY HISTORY OF STROKE 04/21/2019 LLUVIA GARDUNO MD Ot Z82. 49 FAMILY HX OF ISCHEM HEART DIS AND OTH DI 04/21/2019 LLUVIA GARDUNO MD Ot Z85. 3 PERSONAL HISTORY OF MALIGNANT NEOPLASM O 04/21/2019 LLUVIA GARDUNO MD Ot Z85. 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 04/24/2019 YOSI BRINK Ot E78.00 PURE HYPERCHOLESTEROLEMIA, UNSPECIFIED 04/24/2019 YOSI BRINK Ot E83.42 HYPOMAGNESEMIA 04/24/2019 KEENA, BOBAN N Ot F03.90 UNSPECIFIED DEMENTIA WITHOUT BEHAVIORAL 04/24/2019 YOSI BRINK N Ot F41.9 ANXIETY DISORDER, UNSPECIFIED 04/24/2019 YOSI BRINK N Ot G25.81 RESTLESS LEGS SYNDROME 04/24/2019 YOSI BRINK N Ot I12.9 HYPERTENSIVE CHRONIC KIDNEY DISEASE W ST 04/24/2019 YOSI BRINK N Ot I25.10 ATHSCL HEART DISEASE OF [place] CORONARY 04/24/2019 YOSI BRINK N Ot J44.9 CHRONIC OBSTRUCTIVE PULMONARY DISEASE, U 04/24/2019 YOSI BRINK N Ot N18.3 CHRONIC KIDNEY DISEASE, STAGE 3 (MODERAT 04/24/2019 YOSI BRINK N Ot Z79.899 OTHER EMBLEM FUSER TENDER (CURRENT) DRUG THERAPY 04/24/2019 YOSI BRINK N Ot Z85.3 PERSONAL HISTORY OF MALIGNANT NEOPLASM O 04/24/2019 YOSI BRINK N Ot Z87.891 PERSONAL HISTORY OF NICOTINE DEPENDENCE 04/24/2019 YOSI BRINK N Ot Z90.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 04/24/2019 YOSI BRINK N Ot Z92.21 PERSONAL HISTORY OF ANTINEOPLASTIC CHEMO 04/25/2019 YOSI BRINK N Ot 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 04/25/2019 YOSI BRINK N Ot E78.00 PURE HYPERCHOLESTEROLEMIA, UNSPECIFIED 04/25/2019 YOSI BRINK N Ot E83.42 HYPOMAGNESEMIA 04/25/2019 YOSI BRINK N Ot F03.90 UNSPECIFIED DEMENTIA WITHOUT BEHAVIORAL 04/25/2019 YOSI BRINK N Ot F41.9 ANXIETY DISORDER, UNSPECIFIED 04/25/2019 YOSI BRINK N Ot G25.81 RESTLESS LEGS SYNDROME 04/25/2019 YOSI BRINK N Ot I12.9 HYPERTENSIVE CHRONIC KIDNEY DISEASE W ST 04/25/2019 YOSI BRINK N Ot I25.10 ATHSCL HEART DISEASE OF [place] CORONARY 04/25/2019 YOSI BRINK N Ot J44.9 CHRONIC OBSTRUCTIVE PULMONARY DISEASE, U 04/25/2019 YOSI BRINK N Ot N18.3 CHRONIC KIDNEY DISEASE, STAGE 3 (MODERAT 04/25/2019 YOSI BRINK N Ot Z79.899 OTHER EMBLEM FUSER TENDER (CURRENT) DRUG THERAPY 04/25/2019 YOSI BRINK Mary Ot Z85.3 PERSONAL HISTORY OF MALIGNANT NEOPLASM O 04/25/2019 YOSI BRINK Mary Ot Z87.891 PERSONAL HISTORY OF NICOTINE DEPENDENCE 04/25/2019 YOSI BRINK Mary Sanches Z90.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 04/25/2019 YOSI BRINK Mary Sanches Z92.21 PERSONAL HISTORY OF ANTINEOPLASTIC CHEMO 05/06/2019 LEONELA JAMES Ot E78.00 PURE HYPERCHOLESTEROLEMIA, UNSPECIFIED 05/06/2019 LEONELA JAMES Ot I25.10 ATHSCL HEART DISEASE OF [place] CORONARY 05/06/2019 LEONELA JAMES Ot I34.0 NONRHEUMATIC MITRAL (VALVE) INSUFFICIENC 05/06/2019 LEONELA JAMES Ot I44.7 LEFT BUNDLE-BRANCH BLOCK, UNSPECIFIED 05/06/2019 LEONELA JAMES Ot K21.9 GASTRO-ESOPHAGEAL REFLUX DISEASE WITHOUT 05/06/2019 LEONELA JAMES Ot R06.02 SHORTNESS OF BREATH Procedures Code Description Performed By Per formed On 00.40 PROC EDURE ON SINGLE VESSEL 09/24/2012 38.12 HEAD NECK ENDARTER NEC 09/24/2012 00.40 PROC EDURE ON SINGLE VESSEL 01/16/2014 38.12 HEAD NECK ENDARTER NEC 01/16/2014 Results Test Result Range Complete blood count (CBC) with automate d white blood cell (WBC) differential - 05/03/16 13:43 Blood leukocytes automated count (number/volume) 17.6 10*3/uL 4.3-11.0 Blood erythrocytes automated count (number/volume) 4.61 10*6/uL 4.35-5.85 Venous blood hemoglobin measurement (mass/volume) 13.0 g/dL 11.5-16.0 Blood hematocrit (volume fraction) 40 % 35-52 Automated erythrocyte mean corpuscular volume 87 [ foz_us] 80-99 Automated erythrocyte mean corpuscular h emoglobin (mass per erythrocyte) 28 pg 25-34 Automated erythrocyte mean corpuscular h emoglobin concentration measurement (mass/volume) 32 g/dL 32-36 Automated erythrocyte distribution width ratio 14. 1 % 10.0- 14.5 Automated blood platelet count (count/volume) 343 10*3/uL [...] 10*3 1.0-4.0 Blood monocytes automated count (number/volume) 2. 8 10*3 0.0-1.0 Automated eosinophil count 0.1 10*3/uL 0 .0-0.3 Automated blood basophil count (count/volume) 0.1 10*3/uL 0.0-0.1 PT panel in platelet poor plasma by coag ulation assay - 05/03/16 13:43 Prothrombin time (PT) in platelet poor plasma by coagu lation assay 12.9 s 12.2-14.7 INR in platelet poor plasma or blood by coagulation as say 1.0 0.8-1.4 Blood lactic acid measurement (moles/vol ume) - 05/03/16 13:43 Blood lactic acid measurement (moles/volume) 1.3 m mol/L 0.5- 2.0 Comprehensive metabolic panel - 05/03/16 13:43 Serum or plasma sodium measurement (moles/volume) 138 mmol/L 135-145 Serum or plasma potassium measurement (moles/volume) 3.6 mmol/L 3.6-5.0 Serum or plasma chloride measurement (moles/volume) 101 mmol/L 98-107 Carbon dioxide 21 mmol/L 21-32 Serum or plasma anion gap determination (moles/volume) 16 mmol/L 5-14 Serum or plasma urea nitrogen measurement (mass/volume ) 21 mg/dL 7-18 Serum or plasma creatinine measurement (mass/volume) 1.29 mg/dL 0.60-1.30 Serum or plasma urea nitrogen/creatinine mass ratio 16 NRG Serum or plasma creatinine measurement w ith calculation of estimated glomerular filtration rate 40 NRG Serum or plasma glucose measurement (mass/volume) 120 mg/dL 70-105 Serum or plasma calcium measurement (mass/volume) 9.3 mg/dL 8.5-10.1 Serum or plasma total bilirubin measurement (mass/volu me) 1.1 mg/dL 0.1-1.0 Serum or plasma alkaline phosphatase essence surement (enzymatic activity/volume) 95 U/L 40-136 Serum or plasma aspartate aminotransfera se measurement (enzymatic activity/volume) 18 U/L 5-34 Serum or plasma alanine aminotransferase measurement (enzymatic activity/volume) 14 U/L 0-55 Serum or plasma protein measurement (mass/volume) 7.3 g/dL 6.4-8.2 Serum or plasma albumin measurement (mass/volume) 4.0 g/dL 3.2-4.5 Blood manual differential performed dete ction - 05/03/16 13:43 Blood monocytes/100 leukocytes 10 [...] NG NRG Complete urinalysis with reflex to cultu re - 05/03/16 14:39 Urine color determination JONG NRG Urine clarity determination CLEAR NR G Urine pH measurement by test strip 6 5-9 Specific gravity of urine by test strip 1.020 1.016-1.022 Urine protein assay by test strip, semi-quantitative 3+ NEGATIVE Urine glucose detection by automated test strip NE GATIVE NEGATIVE Erythrocytes detection in urine sediment by light micr oscopy NEGATIVE NEGATIVE Urine ketones detection by automated test strip 2+ NEGATIVE Urine nitrite detection by test strip NEGATIVE NEGATIVE Urine total bilirubin detection by test strip 1+ NEGATIVE Urine urobilinogen measurement by automated test strip (mass/volume) 1 mg/dL NORMAL Urine leukocyte esterase detection by dipstick 1+ NEGATIVE Automated urine sediment erythrocyte cou nt by microscopy (number/high power field) [HPF] NRG Automated urine sediment leukocyte count by microscopy (number/high power field) [HPF] NRG Bacteria detection in urine sediment by light microsco py FEW NRG Squamous epithelial cells detection in u rine sediment by light microscopy 0-2 NRG Crystals detection in urine sediment by light microsco py NONE NRG Casts detection in urine sediment by light microscopy PRESENT NRG Mucus detection in urine sediment by light microscopy MODERATE NRG Complete urinalysis with reflex to culture YES NRG Hyaline casts detection in urine sediment by light babak roscopy 10-25 NRG Bacterial urine culture - 05/03/16 14:39 URINE CULTURE RESULTS <10,000/ML NRG Complete blood count (CBC) with automate d white blood cell (WBC) differential - 05/04/16 05:35 Blood leukocytes automated count (number/volume) 15.7 10*3/uL 4.3-11.0 Blood erythrocytes automated count (number/volume) 4.40 10*6/uL 4.35-5.85 Venous blood hemoglobin measurement (mass/volume) 12.6 g/dL 11.5-16.0 Blood hematocrit (volume fraction) 39 % 35-52 Automated erythrocyte mean corpuscular volume 89 [ foz_us] 80-99 Automated erythrocyte mean corpuscular h emoglobin (mass per erythrocyte) 29 pg 25-34 Automated erythrocyte mean corpuscular h emoglobin concentration measurement (mass/volume) 32 g/dL 32-36 Automated erythrocyte distribution width ratio 14. 4 % 10.0- 14.5 Automated blood platelet count (count/volume) 352 10*3/uL [...] 10*3 1.0-4.0 Blood monocytes automated count (number/volume) 2. 1 10*3 0.0-1.0 Automated eosinophil count 0.2 10*3/uL 0 .0-0.3 Automated blood basophil count (count/volume) 0.1 10*3/uL 0.0-0.1 Comprehensive metabolic panel - 05/04/16 05:35 Serum or plasma sodium measurement (moles/volume) 140 mmol/L 135-145 Serum or plasma potassium measurement (moles/volume) 3.7 mmol/L 3.6-5.0 Serum or plasma chloride measurement (moles/volume) 108 mmol/L 98-107 Carbon dioxide 19 mmol/L 21-32 Serum or plasma anion gap determination (moles/volume) 13 mmol/L 5-14 Serum or plasma urea nitrogen measurement (mass/volume ) 16 mg/dL 7-18 Serum or plasma creatinine measurement (mass/volume) 0.83 mg/dL 0.60-1.30 Serum or plasma urea nitrogen/creatinine mass ratio 19 NRG Serum or plasma creatinine measurement w ith calculation of estimated glomerular filtration rate > NRG Serum or plasma glucose measurement (mass/volume) 112 mg/dL 70-105 Serum or plasma calcium measurement (mass/volume) 8.9 mg/dL 8.5-10.1 Serum or plasma total bilirubin measurement (mass/volu me) 0.4 mg/dL 0.1-1.0 Serum or plasma alkaline phosphatase essence surement (enzymatic activity/volume) 95 U/L 40-136 Serum or plasma aspartate aminotransfera se measurement (enzymatic activity/volume) 25 U/L 5-34 Serum or plasma alanine aminotransferase measurement (enzymatic activity/volume) 15 U/L 0-55 Serum or plasma protein measurement (mass/volume) 7.3 g/dL 6.4-8.2 Serum or plasma albumin measurement (mass/volume) 3.9 g/dL 3.2-4.5 Complete urinalysis with reflex to cultu re - 05/04/16 13:37 Urine color determination YELLOW NRG Urine clarity determination CLEAR NR G Urine pH measurement by test strip 6 5-9 Specific gravity of urine by test strip 1.010 1.016-1.022 Urine protein assay by test strip, semi-quantitative 2+ NEGATIVE Urine glucose detection by automated test strip NE GATIVE NEGATIVE Erythrocytes detection in urine sediment by light micr oscopy NEGATIVE NEGATIVE Urine ketones detection by automated test strip 4+ NEGATIVE Urine nitrite detection by test strip NEGATIVE NEGATIVE Urine total bilirubin detection by test strip NEGA TIVE NEGATIVE Urine urobilinogen measurement by automated test strip (mass/volume) NORMAL NORMAL Urine leukocyte esterase detection by dipstick 1+ NEGATIVE Automated urine sediment erythrocyte cou nt by microscopy (number/high power field) NONE NRG Automated urine sediment leukocyte count by microscopy (number/high power field) [HPF] NRG Bacteria detection in urine sediment by light microsco py FEW NRG Squamous epithelial cells detection in u rine sediment by light microscopy RARE NRG Crystals detection in urine sediment by light microsco py NONE NRG Casts detection in urine sediment by light microscopy NONE NRG Mucus detection in urine sediment by light microscopy NEGATIVE NRG Complete urinalysis with reflex to culture NO NRG Blood CBC with ordered manual differenti al panel - 08/26/16 09:15 Blood leukocytes automated count (number/volume) 11.5 10*3/uL 4.3-11.0 Blood erythrocytes automated count (number/volume) 4.41 10*6/uL 4.35-5.85 Venous blood hemoglobin measurement (mass/volume) 12.6 g/dL 11.5-16.0 Blood hematocrit (volume fraction) 38 % 35-52 Automated erythrocyte mean corpuscular volume 87 [ foz_us] 80-99 Automated erythrocyte mean corpuscular h emoglobin (mass per erythrocyte) 29 pg 25-34 Automated erythrocyte mean corpuscular h emoglobin concentration measurement (mass/volume) 33 g/dL 32-36 Automated erythrocyte distribution width ratio 14. 1 % 10.0- 14.5 Automated blood platelet count (count/volume) 303 10*3/uL [...] 10*3 1.0-4.0 Blood monocytes automated count (number/volume) 1. 3 10*3 0.0-1.0 Automated eosinophil count 0.2 10*3/uL 0 .0-0.3 Automated blood basophil count (count/volume) 0.1 10*3/uL 0.0-0.1 Manual blood segmented neutrophils/100 leukocytes 46 % NRG Blood band neutrophils/100 leukocytes 0 % NRG Manual blood lymphocytes/100 leukocytes 42 % NRG Manual eosinophils/100 leukocytes in nose 4 % NRG Manual blood basophils/100 leukocytes 2 % NRG Blood erythrocyte morphology finding identification NORMAL NRG Automated reticulocyte percentage - 08/09 12/25 09:15 Blood reticulocytes count (number/volume) 65 10*9/ L 24-90 Blood reticulocytes/100 erythrocytes 1.47 % 0.50-2.40 Automated blood complete blood count (he mogram) panel - 02/10/18 07:30 Blood leukocytes automated count (number/volume) 31.2 10*3/uL 4.3-11.0 Blood erythrocytes automated count (number/volume) 4.27 10*6/uL 4.35-5.85 Venous blood hemoglobin measurement (mass/volume) 12.1 g/dL 11.5-16.0 Blood hematocrit (volume fraction) 37 % 35-52 Automated erythrocyte mean corpuscular volume 88 [ foz_us] 80-99 Automated erythrocyte mean corpuscular h emoglobin (mass per erythrocyte) 28 pg 25-34 Automated erythrocyte mean corpuscular h emoglobin concentration measurement (mass/volume) 32 g/dL 32-36 Automated erythrocyte distribution width ratio 14. 2 % 10.0- 14.5 Automated blood platelet count (count/volume) 377 10*3/uL 130-400 Automated blood platelet mean volume measurement 9.4 [foz_us] 7.4-10.4 Comprehensive metabolic panel - 02/10/18 07:30 Serum or plasma sodium measurement (moles/volume) 137 mmol/L 135-145 Serum or plasma potassium measurement (moles/volume) 3.9 mmol/L 3.6-5.0 Serum or plasma chloride measurement (moles/volume) 104 mmol/L 98-107 Carbon dioxide 22 mmol/L 21-32 Serum or plasma anion gap determination (moles/volume) 11 mmol/L 5-14 Serum or plasma urea nitrogen measurement (mass/volume ) 25 mg/dL 7-18 Serum or plasma creatinine measurement (mass/volume) 1.61 mg/dL 0.60-1.30 Serum or plasma urea nitrogen/creatinine mass ratio 16 NRG Serum or plasma creatinine measurement w ith calculation of estimated glomerular filtration rate 31 NRG Serum or plasma glucose measurement (mass/volume) 111 mg/dL 70-105 Serum or plasma calcium measurement (mass/volume) 9.6 mg/dL 8.5-10.1 Serum or plasma total bilirubin measurement (mass/volu me) 0.8 mg/dL 0.1-1.0 Serum or plasma alkaline phosphatase essence surement (enzymatic activity/volume) 137 U/L 40-136 Serum or plasma aspartate aminotransfera se measurement (enzymatic activity/volume) 43 U/L 5-34 Serum or plasma alanine aminotransferase measurement (enzymatic activity/volume) 33 U/L 0-55 Serum or plasma protein measurement (mass/volume) 9.5 g/dL 6.4-8.2 Serum or plasma albumin measurement (mass/volume) 4.0 g/dL 3.2-4.5 CALCIUM CORRECTED 9.6 mg/dL 8.5-10.1 Lipid 1996 panel - 02/10/18 07:30 Serum or plasma triglyceride measurement (mass/volume) 148 mg/dL <150 Serum or plasma cholesterol measurement (mass/volume) 96 mg/dL < 200 Serum or plasma cholesterol in HDL measurement (mass/v olume) 34 mg/dL 40-60 Cholesterol in LDL [mass/volume] in serum or plasma by direct assay 35 mg/dL 1-129 Serum or plasma cholesterol in VLDL measurement (mass/ volume) 30 mg/dL 5-40 PT panel in platelet poor plasma by coag ulation assay - 02/10/18 07:30 Prothrombin time (PT) in platelet poor plasma by coagu lation assay 12.6 s 12.2-14.7 INR in platelet poor plasma or blood by coagulation as say 0.9 0.8-1.4 Activated partial thromboplastin time (a PTT) in platelet poor plasma bycoagulation assay - 02/10/18 07:30 Activated partial thromboplastin time (a PTT) in platelet poor plasma bycoagulation assay 26 s 24-35 Methicillin resistant Staphylococcus aur eus (MRSA) screening culture - 02/10/18 07:30 Methicillin resistant Staphylococcus aureus (MRSA) scr eening culture NEG NRG Automated blood complete blood count (he mogram) panel - 02/11/18 03:11 Blood leukocytes automated count (number/volume) 27.1 10*3/uL 4.3-11.0 Blood erythrocytes automated count (number/volume) 3.88 10*6/uL 4.35-5.85 Venous blood hemoglobin measurement (mass/volume) 11.4 g/dL 11.5-16.0 Blood hematocrit (volume fraction) 34 % 35-52 Automated erythrocyte mean corpuscular volume 87 [ foz_us] 80-99 Automated erythrocyte mean corpuscular h emoglobin (mass per erythrocyte) 29 pg 25-34 Automated erythrocyte mean corpuscular h emoglobin concentration measurement (mass/volume) 34 g/dL 32-36 Automated erythrocyte distribution width ratio 14. 0 % 10.0- 14.5 Automated blood platelet count (count/volume) 330 10*3/uL 130-400 Automated blood platelet mean volume measurement 9.4 [foz_us] 7.4-10.4 Whole blood basic metabolic panel - 08/26 03:11 Serum or plasma sodium measurement (moles/volume) 137 mmol/L 135-145 Serum or plasma potassium measurement (moles/volume) 3.3 mmol/L 3.6-5.0 Serum or plasma chloride measurement (moles/volume) 107 mmol/L 98-107 Carbon dioxide 19 mmol/L 21-32 Serum or plasma anion gap determination (moles/volume) 11 mmol/L 5-14 Serum or plasma urea nitrogen measurement (mass/volume ) 17 mg/dL 7-18 Serum or plasma creatinine measurement (mass/volume) 0.91 mg/dL 0.60-1.30 Serum or plasma urea nitrogen/creatinine mass ratio 19 NRG Serum or plasma creatinine measurement w ith calculation of estimated glomerular filtration rate 60 NRG Serum or plasma glucose measurement (mass/volume) 93 mg/dL 70-105 Serum or plasma calcium measurement (mass/volume) 8.9 mg/dL 8.5-10.1 Lipid 1996 panel - 08/30/18 13:44 Serum or plasma triglyceride measurement (mass/volume) 162 mg/dL <150 Serum or plasma cholesterol measurement (mass/volume) 132 mg/dL < 200 Serum or plasma cholesterol in HDL measurement (mass/v olume) 42 mg/dL 40-60 Cholesterol in LDL [mass/volume] in serum or plasma by direct assay 49 mg/dL 1-129 Serum or plasma cholesterol in VLDL measurement (mass/ volume) 32 mg/dL 5-40 THYROID STIMULATING HORMONE - 08/30/18 1 3:44 THYROID STIMULATING HORMONE 1.47 u[iU]/mL 0.35-4.94 Complete blood count (CBC) with automate d white blood cell (WBC) differential - 11/15/18 14:00 Blood leukocytes automated count (number/volume) 6.2 10*3/uL 4.3-11.0 Blood erythrocytes automated count (number/volume) 4.01 10*6/uL 4.35-5.85 Venous blood hemoglobin measurement (mass/volume) 11.7 g/dL 11.5-16.0 Blood hematocrit (volume fraction) 36 % 35-52 Automated erythrocyte mean corpuscular volume 90 [ foz_us] 80-99 Automated erythrocyte mean corpuscular h emoglobin (mass per erythrocyte) 29 pg 25-34 Automated erythrocyte mean corpuscular h emoglobin concentration measurement (mass/volume) 33 g/dL 32-36 Automated erythrocyte distribution width ratio 13. 8 % 10.0- 14.5 Automated blood platelet count (count/volume) 231 10*3/uL 130-400 Automated blood platelet mean volume measurement 9.0 [foz_us] 7.4-10.4 Automated blood neutrophils/100 leukocytes 27 % 42-75 Automated blood lymphocytes/100 leukocytes 59 % 12-44 Blood monocytes/100 leukocytes 10 % 0-12 Automated blood eosinophils/100 leukocytes 3 % 0-10 Automated blood basophils/100 leukocytes 1 % 0-10 Blood neutrophils automated count (number/volume) 1.7 10*3 1.8-7.8 Blood lymphocytes automated count (number/volume) 3.7 10*3 1.0-4.0 Blood monocytes automated count (number/volume) 0. 6 10*3 0.0-1.0 Automated eosinophil count 0.2 10*3/uL 0 .0-0.3 Automated blood basophil count (count/volume) 0.0 10*3/uL 0.0-0.1 Whole blood basic metabolic panel - 12/27 14:00 Serum or plasma sodium measurement (moles/volume) 140 mmol/L 135-145 Serum or plasma potassium measurement (moles/volume) 4.5 mmol/L 3.6-5.0 Serum or plasma chloride measurement (moles/volume) 104 mmol/L 98-107 Carbon dioxide 27 mmol/L 21-32 Serum or plasma anion gap determination (moles/volume) 9 mmol/L 5-14 Serum or plasma urea nitrogen measurement (mass/volume ) 18 mg/dL 7-18 Serum or plasma creatinine measurement (mass/volume) 1.19 mg/dL 0.60-1.30 Serum or plasma urea nitrogen/creatinine mass ratio 15 NRG Serum or plasma creatinine measurement w ith calculation of estimated glomerular filtration rate 44 NRG Serum or plasma glucose measurement (mass/volume) 101 mg/dL 70-105 Serum or plasma calcium measurement (mass/volume) 9.7 mg/dL 8.5-10.1 Complete blood count (CBC) with automate d white blood cell (WBC) differential - 12/20/18 11:28 Blood leukocytes automated count (number/volume) 3.8 10*3/uL 4.3-11.0 Blood erythrocytes automated count (number/volume) 3.76 10*6/uL 4.35-5.85 Venous blood hemoglobin measurement (mass/volume) 11.3 g/dL 11.5-16.0 Blood hematocrit (volume fraction) 34 % 35-52 Automated erythrocyte mean corpuscular volume 90 [ foz_us] 80-99 Automated erythrocyte mean corpuscular h emoglobin (mass per erythrocyte) 30 pg 25-34 Automated erythrocyte mean corpuscular h emoglobin concentration measurement (mass/volume) 34 g/dL 32-36 Automated erythrocyte distribution width ratio 13. 5 % 10.0- 14.5 Automated blood platelet count (count/volume) 188 10*3/uL 130-400 Automated blood platelet mean volume measurement 9.3 [foz_us] 7.4-10.4 Automated blood neutrophils/100 leukocytes 23 % 42-75 Automated blood lymphocytes/100 leukocytes 60 % 12-44 Blood monocytes/100 leukocytes 13 % 0-12 Automated blood eosinophils/100 leukocytes 3 % 0-10 Automated blood basophils/100 leukocytes 1 % 0-10 Blood neutrophils automated count (number/volume) 0.9 10*3 1.8-7.8 Blood lymphocytes automated count (number/volume) 2.3 10*3 1.0-4.0 Blood monocytes automated count (number/volume) 0. 5 10*3 0.0-1.0 Automated eosinophil count 0.1 10*3/uL 0 .0-0.3 Automated blood basophil count (count/volume) 0.0 10*3/uL 0.0-0.1 Comprehensive metabolic panel - 12/20/18 11:28 Serum or plasma sodium measurement (moles/volume) 142 mmol/L 135-145 Serum or plasma potassium measurement (moles/volume) 4.0 mmol/L 3.6-5.0 Serum or plasma chloride measurement (moles/volume) 106 mmol/L 98-107 Carbon dioxide 27 mmol/L 21-32 Serum or plasma anion gap determination (moles/volume) 9 mmol/L 5-14 Serum or plasma urea nitrogen measurement (mass/volume ) 15 mg/dL 7-18 Serum or plasma creatinine measurement (mass/volume) 1.30 mg/dL 0.60-1.30 Serum or plasma urea nitrogen/creatinine mass ratio 12 NRG Serum or plasma creatinine measurement w ith calculation of estimated glomerular filtration rate 40 NRG Serum or plasma glucose measurement (mass/volume) 100 mg/dL 70-105 Serum or plasma calcium measurement (mass/volume) 9.1 mg/dL 8.5-10.1 Serum or plasma total bilirubin measurement (mass/volu me) 0.8 mg/dL 0.1-1.0 Serum or plasma alkaline phosphatase essence surement (enzymatic activity/volume) 78 U/L 40-136 Serum or plasma aspartate aminotransfera se measurement (enzymatic activity/volume) 19 U/L 5-34 Serum or plasma alanine aminotransferase measurement (enzymatic activity/volume) 9 U/L 0-55 Serum or plasma protein measurement (mass/volume) 6.7 g/dL 6.4-8.2 Serum or plasma albumin measurement (mass/volume) 4.0 g/dL 3.2-4.5 CALCIUM CORRECTED 9.1 mg/dL 8.5-10.1 Complete urinalysis with reflex to cultu re - 04/15/19 07:11 Urine color determination YELLOW NRG Urine clarity determination CLEAR NR G Urine pH measurement by test strip 6.5 5-9 Specific gravity of urine by test strip 1.020 1.016-1.022 Urine protein assay by test strip, semi-quantitative NEGATIVE NEGATIVE Urine glucose detection by automated test strip NE GATIVE NEGATIVE Erythrocytes detection in urine sediment by light micr oscopy NEGATIVE NEGATIVE Urine ketones detection by automated test strip NE GATIVE NEGATIVE Urine nitrite detection by test strip NEGATIVE NEGATIVE Urine total bilirubin detection by test strip NEGA TIVE NEGATIVE Urine urobilinogen measurement by automated test strip (mass/volume) 0.2 mg/dL < = 1.0 Urine leukocyte esterase detection by dipstick NEG ATIVE NEGATIVE Automated urine sediment erythrocyte cou nt by microscopy (number/high power field) NONE NRG Automated urine sediment leukocyte count by microscopy (number/high power field) RARE NRG Bacteria detection in urine sediment by light microsco py NEGATIVE NRG Squamous epithelial cells detection in u rine sediment by light microscopy 0-2 NRG Crystals detection in urine sediment by light microsco py NONE NRG Casts detection in urine sediment by light microscopy PRESENT NRG Mucus detection in urine sediment by light microscopy NEGATIVE NRG Complete urinalysis with reflex to culture NO NRG Hyaline casts detection in urine sediment by light babak roscopy 5-10 NRG Automated blood complete blood count (he mogram) panel - 04/15/19 07:23 Blood leukocytes automated count (number/volume) 9.0 10*3/uL 4.3-11.0 Blood erythrocytes automated count (number/volume) 3.93 10*6/uL 4.35-5.85 Venous blood hemoglobin measurement (mass/volume) 11.8 g/dL 11.5-16.0 Blood hematocrit (volume fraction) 36 % 35-52 Automated erythrocyte mean corpuscular volume 91 [ foz_us] 80-99 Automated erythrocyte mean corpuscular h emoglobin (mass per erythrocyte) 30 pg 25-34 Automated erythrocyte mean corpuscular h emoglobin concentration measurement (mass/volume) 33 g/dL 32-36 Automated erythrocyte distribution width ratio 14. 5 % 10.0- 14.5 Automated blood platelet count (count/volume) 248 10*3/uL 130-400 Automated blood platelet mean volume measurement 8.9 [foz_us] 7.4-10.4 PT panel in platelet poor plasma by coag ulation assay - 04/15/19 07:23 Prothrombin time (PT) in platelet poor plasma by coagu lation assay 12.6 s 12.2-14.7 INR in platelet poor plasma or blood by coagulation as say 0.9 0.8-1.4 Activated partial thromboplastin time (a PTT) in platelet poor plasma bycoagulation assay - 04/15/19 07:23 Activated partial thromboplastin time (a PTT) in platelet poor plasma bycoagulation assay 26 s 24-35 Comprehensive metabolic panel - 04/15/19 07:23 Serum or plasma sodium measurement (moles/volume) 139 mmol/L 135-145 Serum or plasma potassium measurement (moles/volume) 4.1 mmol/L 3.6-5.0 Serum or plasma chloride measurement (moles/volume) 104 mmol/L 98-107 Carbon dioxide 25 mmol/L 21-32 Serum or plasma anion gap determination (moles/volume) 10 mmol/L 5-14 Serum or plasma urea nitrogen measurement (mass/volume ) 15 mg/dL 7-18 Serum or plasma creatinine measurement (mass/volume) 1.31 mg/dL 0.60-1.30 Serum or plasma urea nitrogen/creatinine mass ratio 11 NRG Serum or plasma creatinine measurement w ith calculation of estimated glomerular filtration rate 39 NRG Serum or plasma glucose measurement (mass/volume) 107 mg/dL 70-105 Serum or plasma calcium measurement (mass/volume) 9.9 mg/dL 8.5-10.1 Serum or plasma total bilirubin measurement (mass/volu me) 0.6 mg/dL 0.1-1.0 Serum or plasma alkaline phosphatase essence surement (enzymatic activity/volume) 81 U/L 40-136 Serum or plasma aspartate aminotransfera se measurement (enzymatic activity/volume) 17 U/L 5-34 Serum or plasma alanine aminotransferase measurement (enzymatic activity/volume) 6 U/L 0-55 Serum or plasma protein measurement (mass/volume) 7.1 g/dL 6.4-8.2 Serum or plasma albumin measurement (mass/volume) 4.4 g/dL 3.2-4.5 CALCIUM CORRECTED 9.6 mg/dL 8.5-10.1 Lipid 1996 panel - 04/15/19 07:23 Serum or plasma triglyceride measurement (mass/volume) 155 mg/dL <150 Serum or plasma cholesterol measurement (mass/volume) 134 mg/dL < 200 Serum or plasma cholesterol in HDL measurement (mass/v olume) 51 mg/dL 40-60 Cholesterol in LDL [mass/volume] in serum or plasma by direct assay 56 mg/dL 1-129 Serum or plasma cholesterol in VLDL measurement (mass/ volume) 31 mg/dL 5-40 Methicillin resistant Staphylococcus aur eus (MRSA) screening culture - 04/15/19 07:23 Methicillin resistant Staphylococcus aureus (MRSA) scr eening culture NG NRG Encounters ACCT No. Visit Date/Time Discharge Status Pt. Type Provider Facility Loc./Unit Complaint [id number] 04/25/2019 00:11:00 23:59:59 CLS Preadmit YOSI BRINK [facility] ONC [id number] 04/12/2019 12:57:00 00:01:00 DIS Outpatient YOSI BRINK [facility] ONC [id number] 04/15/2019 06:48:00 11:55:00 DIS Outpatient LLUVIA GARDUNO MD [facility] CATH ABN STRESS TEST,HLP [id number] 04/11/2019 08:42:00 23:59:59 CLS Outpatient LORENA JAMES [facility] CARD CAD,GERD,HI GH CHOLESTEROL [id number] 12/27/2018 10:35:00 00:01:00 DIS Outpatient YOSI BRINK [facility] ONC [id number] 10/18/2018 13:09:00 00:01:00 DIS Outpatient YOSI BRINK V [facility] ONC [id number] 09/13/2018 11:00:00 23:59:59 CLS Preadmit LLUVIA GARDUNO MD [facility] CR STENT [id number] 06/23/2018 10:53:00 00:01:00 DIS Outpatient LLUVIA GARDUNO MD [facility] CR STENT [id number] 08/30/2018 15:23:00 23:59:59 CLS Outpatient CLIVE NEVAREZ MD [facility] LABNPT [id number] 07/19/2018 12:19:00 00:01:00 DIS Outpatient YOSI BRINK [facility] ONC [id number] 06/11/2018 10:44:00 02/03/2 019 00:01:00 DIS Outpatient LLUVIA GARDUNO MD [facility] CR STENT [id number] 06/01/2018 09:56:00 019 23:59:59 CLS Outpatient JIM SHER [facility] RAD HX OF BREAST CA [id number] 05/24/2018 14:29:00 019 23:59:59 CLS Preadmit ABA LANDON APRN [facility] RAD CHRONIC BRONCHI TIS W/ COPD,HX OF TOBACCO USE [id number] 05/24/2018 09:28:00 019 23:59:59 CLS Outpatient ABA LANDON APRN [facility] RAD BRONCHITIS [id number] 04/27/2018 08:31:00 018 23:59:59 CLS Outpatient JIM SHERP [facility] RAD HEADACHE,DIZZY [id number] 02/10/2018 07:05:00 018 09:40:00 DIS Outpatient LLUVIA GARDUNO MD [facility] CATH ABNORMAL STRESS TEST [id number] 02/03/2018 11:49:00 018 23:59:59 CLS Outpatient CHUCK AQUINO, LORENA Pratt [facility] CARD CAD,CKD,CAR OTID ARTERY STENOSIS,DYSPNEA [id number] 10/29/2017 13:29:00 018 00:01:00 DIS Outpatient YOSI BRINK [facility] ONC [id number] 08/20/2017 15:41:00 018 23:59:59 CLS Outpatient CLIVE NEVAREZ MD [facility] RAD COUGH [id number] 04/28/2017 12:52:00 018 00:01:00 DIS Outpatient YOSI BRNIK [facility] ONC [id number] 05/27/2017 14:46:00 018 23:59:59 CLS Outpatient JIM SHER ANESTHESIA ASSISTANT [facility] RAD Z12.31 SCREENIN G MAMMO [id number] 04/28/2017 13:23:00 017 23:59:59 CLS Outpatient LORENA JAMES [facility] LAB [id number] 04/06/2017 12:29:00 017 23:59:59 CLS Outpatient CLIVE NEVAREZ MD [facility] RAD B HAND/THUMB PAIN [id number] 10/27/2016 12:44:00 017 00:01:00 DIS Outpatient YOSI BRINK [facility] ONC [id number] 08/26/2016 08:50:00 017 23:59:59 CLS Outpatient CLIVE NEVAREZ MD [facility] LAB ABNORMAL WBC [id number] 08/12/2016 09:10:00 017 23:59:59 CLS Outpatient RANDY ALVARADO MD [facility] RAD K57.90 [id number] 04/29/2016 10:17:00 017 00:01:00 DIS Outpatient YOSI BRINK [facility] ONC [id number] 05/26/2016 11:03:00 017 23:59:59 CLS Outpatient JIM SHER ANESTHESIA ASSISTANT [facility] RAD BREAST CA [id number] 05/05/2016 13:15:00 016 14:10:00 DIS Inpatient MAYTE BROWER MD [facility] 4TH FEVER, POSSIBLE UTI, HX OF LEUKEMIA [id number] 04/10/2016 13:36:00 016 23:59:59 CLS Outpatient LLUVIA GARDUNO MD [facility] CARD CAD [id number] 10/29/2015 11:43:00 016 23:59:59 CLS Outpatient YOSI BRINK [facility] ONC [id number] 10/15/2015 15:00:00 016 23:59:59 CLS Preadmit MINNIE SELF DO [facility] PULM DYSPNEA,COPD [id number] 10/09/2015 10:00:00 00:01:00 DIS Outpatient MINNIE SELF DO [facility] PULM DYSPNEA,COPD [id number] 05/24/2015 10:43:00 23:59:59 CLS Outpatient JIM SHER [facility] RAD ROUTINE MAMMOGR AM SCREENING [id number] 05/20/2015 19:40:00 06:49:00 DIS Outpatient MINNIE SELF DO [facility] SLEEP SNORING,HTN,EXCESSIVE D AYTIME SLEEPINESS [id number] 05/01/2015 09:03:00 23:59:59 CLS Outpatient JIM SHER [facility] ONC [id number] 04/25/2015 13:43:00 23:59:59 CLS Outpatient MINNIE SELF DO [facility] RT CAD,HTN,LBBB,MEMORY DEF ICIT,OBESITY [id number] 04/19/2015 16:32:00 23:59:59 CLS Outpatient MINNIE SELF DO [facility] RAD CAD,HTN,LBBB,MEMORY DEF ICIT,OBESITY [id number] 03/28/2015 08:59:00 23:59:59 CLS Outpatient LLUVIA GARDUNO MD [facility] CARD CAD,MATHIEU,HLP,HTN [id number] 03/23/2015 13:52:00 23:59:59 CLS Outpatient LLUVIA GARDUNO MD [facility] CARD CAD,MATHIEU,HLP,HTN [id number] 11/19/2014 14:32:00 23:59:59 CLS Outpatient JUANCARLOS SON [facility] QUICK [id number] 09/20/2014 08:38:00 23:59:59 CLS Outpatient YOSI BRINK [facility] ONC [id number] 03/24/2014 11:13:00 014 23:59:59 CLS Outpatient JIM SHER ANESTHESIA ASSISTANT [facility] RAD SCREENING [id number] 03/22/2014 09:04:00 23:59:59 CLS Outpatient JIM SHER ANESTHESIA ASSISTANT [facility] ONC [id number] 01/16/2014 06:55:00 014 15:30:00 DIS Inpatient TAVO VALLE MD [facility] ICU RIGHT CAROTID STENOSIS [id number] 01/12/2014 12:03:00 23:59:59 CLS Outpatient TAVO VALLE MD [facility] PREOP RIGHT CAROTID STENOSIS [id number] 12/05/2013 07:44:00 23:59:59 CLS Outpatient TAVO VALLE MD [facility] RAD CAROTID STENOSIS [id number] 10/04/2013 07:52:00 14:29:00 DIS Outpatient YOSI BRINK [facility] REHAB LYMPHEDEMA OF LEFT ARM HX OF BREAST CANCER [id number] 10/10/2013 14:35:00 23:59:59 CLS Outpatient JIM SHER ANESTHESIA ASSISTANT [facility] ONC [id number] 09/14/2013 10:03:00 23:59:59 CLS Outpatient YOSI BRINK [facility] ONC [id number] 07/27/2013 07:30:00 014 23:59:59 CLS Outpatient LLUVIA GARDUNO MD [facility] RT CAD,MATHIEU,HTN [id number] 07/18/2013 07:43:00 014 23:59:59 CLS Outpatient LLUVIA GARDUNO MD [facility] RAD CAD STENOSIS CP [id number] 06/23/2013 10:36:00 23:59:59 CLS Outpatient LLUVIA GARDUNO MD [facility] CARD CAD STENOSIS CP [id number] 03/25/2013 09:45:00 014 00:01:00 DIS Outpatient KEENAYOSI V [facility] ONC [id number] 06/16/2013 06:31:00 014 10:07:00 DIS Outpatient TAVO VALLE MD [facility] SDC GERD; HX POLYPS [id number] 06/15/2013 07:32:00 014 23:59:59 CLS Outpatient TAVO VALLE MD [facility] PREOP GERD; HX POLYPS [id number] 05/02/2013 11:30:00 013 23:59:59 CLS Outpatient TAVO VALLE MD [facility] LABNPT RT (R) RVT, ABSCESS SD D CHEST [id number] 03/17/2013 09:15:00 013 23:59:59 CLS Outpatient CLIVE NEVAREZ MD [facility] RAD SCREENING [id number] 03/15/2013 09:28:00 013 23:59:59 CLS Outpatient TAVO VALLE MD [facility] LAB [id number] 03/15/2013 09:24:00 013 23:59:59 CLS Outpatient LLUVIA GARDUNO MD [facility] LAB [id number] 03/15/2013 09:19:00 013 23:59:59 CLS Outpatient JIM SHER ANESTHESIA ASSISTANT [facility] ONC [id number] 09/24/2012 06:00:00 013 12:20:00 DIS Inpatient TAVO VALLE MD [facility] ICU RIGHT CAROTID STENOSIS [id number] 09/22/2012 07:31:00 013 23:59:59 CLS Outpatient TAVO VALLE MD [facility] PREOP RIGHT CAROTID STENOSIS [id number] 09/06/2012 09:42:00 013 23:59:59 CLS Outpatient YOSI BRINK [facility] ONC [id number] 06/02/2019 11:30:00 P EN Preadmit JIM SHER [facility] RAD SCREENING [id number] 07/05/2014 10:26:00 Document Registration [id number] 04/17/2014 12:16:00 Document Registration [id number] 08/30/2012 09:45:00 Document Registration [id number] 08/30/2012 09:39:00 Document Registration [id number] 06/09/2012 09:26:00 Document Registration [id number] 03/17/2012 12:21:00 Document Registration [id number] 03/03/2012 11:22:00 Document Registration [id number] 03/03/2012 10:22:00 Document Registration [id number] 03/03/2012 10:22:00 Document Registration [id number] 03/03/2012 09:58:00 Document Registration [id number] 11/04/2011 08:57:00 Document Registration [id number] 09/03/2011 05:38:00 Document Registration [id number] 08/26/2011 09:43:00 Document Registration [id number] 07/16/2011 10:25:00 Document Registration [id number] 04/14/2011 11:03:00 Document Registration [id number] 02/25/2011 08:51:00 Document Registration [id number] 12/05/2010 09:18:00 Document Registration
== END 2019-04-15 11:55 | disposition home or self-care (01) ==
LOC: CATH 06:48 → SDC 09:18 → CATH 11:55
PROVIDERS: ATTEND Internal Medicine Cardiovascular Disease
DX: I25.10 Atherosclerotic heart disease of native coronary artery without angina pectoris (principal); G47.33 Obstructive sleep apnea (adult) (pediatric); E78.5 Hyperlipidemia, unspecified; E78.00 Pure hypercholesterolemia, unspecified; I65.29 Occlusion and stenosis of unspecified carotid artery; I44.7 Left bundle-branch block, unspecified; E83.42 Hypomagnesemia; K21.9 Gastro-esophageal reflux disease without esophagitis; J44.9 Chronic obstructive pulmonary disease, unspecified; N18.3 Chronic kidney disease, stage 3 (moderate); I12.9 Hypertensive chronic kidney disease with stage 1 through stage 4 chronic kidney disease, or unspecified chronic kidney disease; M19.90 Unspecified osteoarthritis, unspecified site; F41.9 Anxiety disorder, unspecified; Z79.899 Other long term (current) drug therapy; Z79.82 Long term (current) use of aspirin; Z85.3 Personal history of malignant neoplasm of breast; Z85.6 Personal history of leukemia; Z87.891 Personal history of nicotine dependence; Z82.49 Family history of ischemic heart disease and other diseases of the circulatory system; Z82.3 Family history of stroke
CPT/HCPCS: 36415; 71045; 80053; 80061; 81000; 85027; 85610; 85730; 87081; 93458

== ENCOUNTER → 2019-05-24 | Outpatient (CLI) | payer MEDICARE ==
[~2019-05-24] MED LIST changes: +ACYC400T PO; +ALB0.5V INH; +ATOR40TA70 PO; +CALC-140 PO; +CITA20TA12 PO; +CLOP75TA69 PO; +DIPH25CA48 PO; +DONE10TA41 PO; +FLUT9.9S NS; +GUAI100L36 PO; +LINA72CA PO; +OMEP40CA27 PO; +ONDA8TAB6 PO; +PEG15DRO9 OU; +POTA2TAB15 PO
--- NOTE | 2019-05-24 11:07 | Diagnostic Imaging Report ---
EXAMINATION: CT Chest without contrast. TECHNIQUE: Multiple contiguous axial images were obtained through the chest without the use of intravenous contrast. All CT scans use one or more of the following dose optimizing techniques: automated exposure control, MA and/or KvP adjustment based on a patient size and exam type, or iterative reconstruction. HISTORY: COPD. COMPARISON: 05/24/2018. FINDINGS: Lungs are imaged on excretory phase seen into a groundglass appearance. No suspicious nodules are seen. No edema or pneumonia. No pleural effusion or pneumothorax. There are patchy areas of atelectasis. Heart size is normal. No pericardial effusion. Aorta is normal in caliber. There are numerous predominant right axillary and mediastinal lymph nodes, which are somewhat more numerous than expected but remain subcentimeter. There are moderate coronary artery calcifications. There has been a left mastectomy. Incidental note is made of an apparent right subclavian artery. Limited views of the upper abdomen are unremarkable. There is a new Schmorl's node in the superior endplate of T11. IMPRESSION: 1. No acute abnormality in the chest. Prominent mediastinal lymph nodes are more numerous than expected but remain subcentimeter and not definitively abnormal by CT. Dictated by: Dictated on workstation # [id number]
== END ==
LOC: RAD 10:14
PROVIDERS: ATTEND Nurse Practitioner Family
DX: J44.9 Chronic obstructive pulmonary disease, unspecified (principal); J42 Unspecified chronic bronchitis; G47.33 Obstructive sleep apnea (adult) (pediatric); J30.9 Allergic rhinitis, unspecified; Z87.891 Personal history of nicotine dependence
CPT/HCPCS: 71250

== ENCOUNTER → 2019-06-02 | Outpatient (CLI) | payer MEDICARE ==
--- NOTE | 2019-06-03 08:48 | Diagnostic Imaging Report ---
Unilateral screening right mammogram. This study was compared to the prior exams of 06/01/2018, 05/27/2017 and 05/26/2016. At this time there are no current complaints. By history, the patient did undergo a left mastectomy in 1991 for carcinoma. The fibroglandular tissue in the right breast is heterogeneously dense. This does limit the sensitivity of this exam. Overall, there has been no significant change since the prior exam. The macro and microcalcifications seen previously are again evident. There is no primary or secondary sign of malignancy noted. Impression: There is no evidence for malignancy. ACR BI-RADS Category 1: Negative. Result letter will be mailed to the patient. Note: At least 10% of breast cancer is not imaged by mammography. Dictated by: Dictated on workstation # [id number]
== END ==
LOC: RAD 11:19
PROVIDERS: ATTEND Nurse Practitioner Adult Health
DX: Z12.31 Encounter for screening mammogram for malignant neoplasm of breast (principal); Z85.3 Personal history of malignant neoplasm of breast

== ENCOUNTER → 2019-09-12 | Outpatient (CLI) | payer MEDICARE ==
--- NOTE | 2019-09-12 12:33 | Diagnostic Imaging Report ---
INDICATION: Fall left upper anterior chest wall pain FINDINGS: No lung contusion, pneumothorax or hemothorax. No free air beneath the left hemidiaphragm. No identifiable rib fracture deformity. No bony destructive process. No obvious change when correlated with chest x-ray 04/15/2019. IMPRESSION: No displaced fracture deformity or findings of pulmonary parenchymal or pleural injury. Dictated by: Dictated on workstation # [id number]
== END ==
LOC: RAD 12:11
PROVIDERS: ATTEND Nurse Practitioner Adult Health
DX: R07.81 Pleurodynia (principal)
CPT/HCPCS: 71100

== ENCOUNTER 2019-09-23 09:05 | Outpatient (RCR) | payer MEDICARE ==
[2019-06-29 10:50] LABS: HEMATOCRIT 36 % (35-52); HEMOGLOBIN 11.4 G/DL (11.5-16.0); MEAN CORPUSCULAR HEMOGLOBIN 29 PG (25-34); MEAN CORPUSCULAR HGB CONC 32 G/DL (32-36); MEAN CORPUSCULAR VOLUME 92 FL (80-99); PLATELET COUNT 262 10^3/uL (130-400); RED CELL DISTRIBUTION WIDTH 14.7 % (10.0-14.5); WHITE BLOOD COUNT 17.4 10^3/uL (4.3-11.0)
[2019-06-29 10:56] LABS: ALBUMIN 4.4 GM/DL (3.2-4.5); BILIRUBIN,TOTAL 0.9 MG/DL (0.1-1.0); CALCIUM 9.7 MG/DL (8.5-10.1); CREATININE SERUM 1.2 MG/DL (0.60-1.30); POTASSIUM 4.5 MMOL/L (3.6-5.0)
[2019-06-29 11:32] LABS: ANISOCYTOSIS SLIGHT; ATYPICAL LYMPHOCYTES 58 %; BASOPHILS % (MANUAL) 1 %; ELLIPT/OVALOCYTES SLIGHT; EOSINOPHILS % (MANUAL) 1 %; LYMPHOCYTES % (MANUAL) 29 %; MONOCYTES % (MANUAL) 2 %; NEUTROPHILS % (MANUAL) 9 %; POIKILOCYTOSIS SLIGHT
[2019-08-10 10:17] LABS: HEMATOCRIT 37 % (35-52); HEMOGLOBIN 12.3 G/DL (11.5-16.0); MEAN CORPUSCULAR HEMOGLOBIN 30 PG (25-34); MEAN CORPUSCULAR HGB CONC 33 G/DL (32-36); MEAN CORPUSCULAR VOLUME 90 FL (80-99); PLATELET COUNT 275 10^3/uL (130-400); RED CELL DISTRIBUTION WIDTH 14.7 % (10.0-14.5)
[2019-08-10 10:22] LABS: WHITE BLOOD COUNT 36.6 10^3/uL (4.3-11.0)
[2019-08-10 10:41] LABS: ALBUMIN 4.3 GM/DL (3.2-4.5); BILIRUBIN,TOTAL 0.8 MG/DL (0.1-1.0); CALCIUM 9.3 MG/DL (8.5-10.1); CREATININE SERUM 1.15 MG/DL (0.60-1.30); POTASSIUM 4.2 MMOL/L (3.6-5.0); TOTAL PROTEIN 7.1 GM/DL (6.4-8.2)
[2019-08-10 10:46] LABS: SMEAR SCAN COMMENT YES
[2019-08-22 14:04] LABS: HEMATOCRIT 34 % (35-52); HEMOGLOBIN 11.1 G/DL (11.5-16.0); MEAN CORPUSCULAR HEMOGLOBIN 30 PG (25-34); MEAN CORPUSCULAR HGB CONC 33 G/DL (32-36); MEAN CORPUSCULAR VOLUME 91 FL (80-99); PLATELET COUNT 272 10^3/uL (130-400); RED CELL DISTRIBUTION WIDTH 15.5 % (10.0-14.5)
[2019-08-22 14:05] LABS: WHITE BLOOD COUNT 35.5 10^3/uL (4.3-11.0)
[2019-08-22 14:28] LABS: ALBUMIN 4.2 GM/DL (3.2-4.5); CHLORIDE 104 MMOL/L (98-107); POTASSIUM 4.3 MMOL/L (3.6-5.0); SODIUM 140 MMOL/L (135-145)
[2019-08-22 14:29] LABS: CALCIUM 8.8 MG/DL (8.5-10.1)
[2019-08-22 14:30] LABS: GLUCOSE 86 MG/DL (70-105); TOTAL PROTEIN 6.8 GM/DL (6.4-8.2)
[2019-08-22 14:32] LABS: BILIRUBIN,TOTAL 0.6 MG/DL (0.1-1.0); CARBON DIOXIDE 26 MMOL/L (21-32)
[2019-08-22 14:34] LABS: ALKALINE PHOSPHATASE 85 U/L (40-136); CREATININE SERUM 1.07 MG/DL (0.60-1.30); GFR ESTIMATED 50
[2019-08-22 14:35] LABS: BUN/CREATININE RATIO 11
[2019-08-22 14:37] LABS: ALANINE AMINOTRANSFERASE < 6 U/L (0-55)
[2019-08-25 13:37] LABS: HEMATOCRIT 34 % (35-52); HEMOGLOBIN 11.3 G/DL (11.5-16.0); MEAN CORPUSCULAR HEMOGLOBIN 30 PG (25-34); MEAN CORPUSCULAR HGB CONC 33 G/DL (32-36); MEAN CORPUSCULAR VOLUME 89 FL (80-99); MEAN PLATELET VOLUME 9.2 FL (7.4-10.4); PLATELET COUNT 249 10^3/uL (130-400); RED CELL DISTRIBUTION WIDTH 15.6 % (10.0-14.5); WHITE BLOOD COUNT 27.2 10^3/uL (4.3-11.0)
[2019-08-25 13:55] LABS: ALBUMIN 4.2 GM/DL (3.2-4.5); BILIRUBIN,TOTAL 1.4 MG/DL (0.1-1.0); CREATININE SERUM 1.03 MG/DL (0.60-1.30); POTASSIUM 4.2 MMOL/L (3.6-5.0); TOTAL PROTEIN 7.2 GM/DL (6.4-8.2); URIC ACID 4.7 MG/DL (2.6-7.2)
[2019-08-25 15:03] LABS: BAND NEUTROPHILS 1 %; BASOPHILS % (MANUAL) 0 %; EOSINOPHILS % (MANUAL) 0 %; LYMPHOCYTES % (MANUAL) 48 %; MONOCYTES % (MANUAL) 2 %; NEUTROPHILS % (MANUAL) 6 %
[2019-08-25 15:04] LABS: ANISOCYTOSIS SLIGHT; ATYPICAL LYMPHOCYTES 43 %; ELLIPT/OVALOCYTES SLIGHT; POIKILOCYTOSIS SLIGHT
[2019-08-29 13:51] LABS: HEMATOCRIT 34 % (35-52); MEAN CORPUSCULAR HEMOGLOBIN 29 PG (25-34); MEAN CORPUSCULAR HGB CONC 33 G/DL (32-36); MEAN CORPUSCULAR VOLUME 90 FL (80-99); PLATELET COUNT 282 10^3/uL (130-400); RED CELL DISTRIBUTION WIDTH 15.3 % (10.0-14.5); WHITE BLOOD COUNT 22.8 10^3/uL (4.3-11.0)
[2019-08-29 14:11] LABS: ALBUMIN 4.2 GM/DL (3.2-4.5); BILIRUBIN,TOTAL 0.5 MG/DL (0.1-1.0); CALCIUM 9.2 MG/DL (8.5-10.1); CREATININE SERUM 1.06 MG/DL (0.60-1.30); POTASSIUM 4.6 MMOL/L (3.6-5.0); TOTAL PROTEIN 7.1 GM/DL (6.4-8.2)
[2019-08-29 14:25] LABS: ATYPICAL LYMPHOCYTES 58 %; BAND NEUTROPHILS 0 %; BASOPHILS % (MANUAL) 0 %; EOSINOPHILS % (MANUAL) 0 %; LYMPHOCYTES % (MANUAL) 32 %; MONOCYTES % (MANUAL) 5 %; NEUTROPHILS % (MANUAL) 5 %
[2019-08-29 14:26] LABS: ANISOCYTOSIS SLIGHT; ELLIPT/OVALOCYTES SLIGHT
[2019-09-05 13:27] LABS: HEMATOCRIT 36 % (35-52); HEMOGLOBIN 11.7 G/DL (11.5-16.0); MEAN CORPUSCULAR HEMOGLOBIN 30 PG (25-34); MEAN CORPUSCULAR HGB CONC 33 G/DL (32-36); MEAN CORPUSCULAR VOLUME 91 FL (80-99); MEAN PLATELET VOLUME 8.7 FL (7.4-10.4); PLATELET COUNT 308 10^3/uL (130-400); RED CELL DISTRIBUTION WIDTH 15.5 % (10.0-14.5); WHITE BLOOD COUNT 11.4 10^3/uL (4.3-11.0)
[2019-09-05 13:46] LABS: ALBUMIN 4.2 GM/DL (3.2-4.5); BILIRUBIN,TOTAL 0.7 MG/DL (0.1-1.0); CALCIUM 8.7 MG/DL (8.5-10.1); CREATININE SERUM 1.02 MG/DL (0.60-1.30); POTASSIUM 4.9 MMOL/L (3.6-5.0); TOTAL PROTEIN 6.4 GM/DL (6.4-8.2); URIC ACID 4.9 MG/DL (2.6-7.2)
[2019-09-05 13:58] LABS: ATYPICAL LYMPHOCYTES 59 %; LYMPHOCYTES % (MANUAL) 25 %; MONOCYTES % (MANUAL) 14 %; NEUTROPHILS % (MANUAL) 2 %
[2019-09-05 13:59] LABS: ANISOCYTOSIS SLIGHT; ELLIPT/OVALOCYTES SLIGHT; POIKILOCYTOSIS SLIGHT
[2019-09-12 10:31] LABS: BASOPHILS % (AUTO) 0 % (0-10); EOSINOPHILS % (AUTO) 1 % (0-10); HEMATOCRIT 34 % (35-52); HEMOGLOBIN 11.5 G/DL (11.5-16.0); LYMPHOCYTES % (AUTO) 62 % (12-44); MEAN CORPUSCULAR HEMOGLOBIN 30 PG (25-34); MEAN CORPUSCULAR HGB CONC 34 G/DL (32-36); MEAN CORPUSCULAR VOLUME 90 FL (80-99); MEAN PLATELET VOLUME 8.6 FL (7.4-10.4); MONOCYTES # (AUTO) 0.4 X 10^3 (0.0-1.0); MONOCYTES % (AUTO) 12 % (0-12); NEUTROPHILS # (AUTO) 0.8 X 10^3 (1.8-7.8); NEUTROPHILS % (AUTO) 24 % (42-75); PLATELET COUNT 276 10^3/uL (130-400); RED CELL DISTRIBUTION WIDTH 15.8 % (10.0-14.5); WHITE BLOOD COUNT 3.2 10^3/uL (4.3-11.0)
[2019-09-12 10:52] LABS: ALBUMIN 4.3 GM/DL (3.2-4.5); BILIRUBIN,TOTAL 1.2 MG/DL (0.1-1.0); CALCIUM 9.5 MG/DL (8.5-10.1); CREATININE SERUM 1.27 MG/DL (0.60-1.30); POTASSIUM 5.1 MMOL/L (3.6-5.0); TOTAL PROTEIN 7.1 GM/DL (6.4-8.2); URIC ACID 5.4 MG/DL (2.6-7.2)
[2019-09-13 15:01] LABS: CREATININE SERUM 1.46 MG/DL (0.60-1.30); POTASSIUM 4.8 MMOL/L (3.6-5.0)
[2019-09-14 09:41] LABS: CALCIUM 8.8 MG/DL (8.5-10.1); CREATININE SERUM 1.28 MG/DL (0.60-1.30); POTASSIUM 5.1 MMOL/L (3.6-5.0)
[2019-09-19 14:41] LABS: BASOPHILS % (AUTO) 0 % (0-10); EOSINOPHILS % (AUTO) 1 % (0-10); HEMATOCRIT 33 % (35-52); HEMOGLOBIN 10.7 G/DL (11.5-16.0); LYMPHOCYTES # (AUTO) 1.3 X 10^3 (1.0-4.0); LYMPHOCYTES % (AUTO) 58 % (12-44); MEAN CORPUSCULAR HEMOGLOBIN 30 PG (25-34); MEAN CORPUSCULAR HGB CONC 33 G/DL (32-36); MEAN CORPUSCULAR VOLUME 92 FL (80-99); MEAN PLATELET VOLUME 8.5 FL (7.4-10.4); MONOCYTES # (AUTO) 0.1 X 10^3 (0.0-1.0); MONOCYTES % (AUTO) 6 % (0-12); NEUTROPHILS # (AUTO) 0.8 X 10^3 (1.8-7.8); NEUTROPHILS % (AUTO) 35 % (42-75); PLATELET COUNT 276 10^3/uL (130-400); RED CELL DISTRIBUTION WIDTH 15.9 % (10.0-14.5); WHITE BLOOD COUNT 2.3 10^3/uL (4.3-11.0)
[2019-09-19 14:59] LABS: ALBUMIN 4.2 GM/DL (3.2-4.5); BILIRUBIN,TOTAL 0.9 MG/DL (0.1-1.0); CALCIUM 8.8 MG/DL (8.5-10.1); CREATININE SERUM 1.09 MG/DL (0.60-1.30); POTASSIUM 4.6 MMOL/L (3.6-5.0); TOTAL PROTEIN 6.7 GM/DL (6.4-8.2); URIC ACID 6.6 MG/DL (2.6-7.2)
[2019-09-21 14:23] LABS: CALCIUM 8.6 MG/DL (8.5-10.1); CREATININE SERUM 1.04 MG/DL (0.60-1.30); POTASSIUM 4.9 MMOL/L (3.6-5.0)
[~2019-09-23 09:05] MED LIST changes: +NS IV 1000 ML (CANCER CTR) 1,000 ML ONE
[2019-09-23 09:19] LABS: BASOPHILS % (AUTO) 0 % (0-10); EOSINOPHILS % (AUTO) 1 % (0-10); HEMATOCRIT 32 % (35-52); HEMOGLOBIN 10.5 G/DL (11.5-16.0); LYMPHOCYTES % (AUTO) 49 % (12-44); MEAN CORPUSCULAR HEMOGLOBIN 30 PG (25-34); MEAN CORPUSCULAR HGB CONC 33 G/DL (32-36); MEAN CORPUSCULAR VOLUME 92 FL (80-99); MEAN PLATELET VOLUME 8.5 FL (7.4-10.4); MONOCYTES # (AUTO) 0.4 X 10^3 (0.0-1.0); MONOCYTES % (AUTO) 22 % (0-12); NEUTROPHILS # (AUTO) 0.5 X 10^3 (1.8-7.8); NEUTROPHILS % (AUTO) 28 % (42-75); PLATELET COUNT 243 10^3/uL (130-400); RED CELL DISTRIBUTION WIDTH 15.9 % (10.0-14.5); WHITE BLOOD COUNT 1.9 10^3/uL (4.3-11.0)
[2019-09-23 09:36] LABS: ALBUMIN 4.2 GM/DL (3.2-4.5); BILIRUBIN,TOTAL 0.5 MG/DL (0.1-1.0); CALCIUM 9.2 MG/DL (8.5-10.1); CREATININE SERUM 1.03 MG/DL (0.60-1.30); POTASSIUM 4.2 MMOL/L (3.6-5.0); TOTAL PROTEIN 6.8 GM/DL (6.4-8.2); URIC ACID 5.7 MG/DL (2.6-7.2)
[2019-09-27] MEDS ORDERED: riTUXimab 500 MG, riTUXimab FOR IV INJ CONC 200 MG in NS (IVPB) CANCER CENTER ONLY 150 ML IV SCH (17:00)
[2019-09-27] MEDS ORDERED: ACETAMINOPHEN 500 MG TAB (TYLENOL) CANCER CTR PO PRN (17:00)
[2019-09-27] MEDS ORDERED: NS IV 1000 ML (CANCER CTR) IV SCH (17:00)
[2019-09-27] MEDS ORDERED: diphenhydrAMINE 25 MG TAB (BENADRYL) CANCER CENTER PO SCH (17:00)
== END 2019-09-27 | disposition home or self-care (01) ==
LOC: ONC 09:05
PROVIDERS: ATTEND Internal Medicine Hematology & Oncology
DX: C91.10 Chronic lymphocytic leukemia of B-cell type not having achieved remission (principal); Z85.3 Personal history of malignant neoplasm of breast; F03.90 Unspecified dementia, unspecified severity, without behavioral disturbance, psychotic disturbance, mood disturbance, and anxiety; F41.9 Anxiety disorder, unspecified; I25.10 Atherosclerotic heart disease of native coronary artery without angina pectoris; J44.9 Chronic obstructive pulmonary disease, unspecified; I12.9 Hypertensive chronic kidney disease with stage 1 through stage 4 chronic kidney disease, or unspecified chronic kidney disease; N18.3 Chronic kidney disease, stage 3 (moderate); E78.00 Pure hypercholesterolemia, unspecified; E83.42 Hypomagnesemia; G25.81 Restless legs syndrome; Z90.12 Acquired absence of left breast and nipple; Z87.891 Personal history of nicotine dependence; Z79.899 Other long term (current) drug therapy; Z92.21 Personal history of antineoplastic chemotherapy
CPT/HCPCS: 36415; 80048; 80053; 82232; 82784; 83615; 83883; 84550; 85007; 85025; 85027; 96360; 96361; 99213

== ENCOUNTER 2019-11-22 12:03 | Emergency (ER) | payer MEDICARE ==
[~2019-11-22] VITALS: Ht 162.5 cm; Wt 85.3 kg
[~2019-11-22 12:03] MED LIST changes: -NS IV 1000 ML (CANCER CTR) 1,000 ML ONE
[2019-11-22] MEDS ORDERED: GABAPENTIN 100 MG (NEURONTIN) CAP PO ONE (12:45)
[2019-11-22] MEDS ORDERED: HYDROcodone/APAP 5 MG/325 MG (LORTAB) TAB PO ONE (12:45)
--- NOTE | 2019-11-22 12:48 | ED Upper Extremity ---
General Chief Complaint: Upper Extremity Stated Complaint: R ARM INJ Nursing Triage Note: pt report having right arm pain. Pain started in right thumb progressed to hand and arm. Pain is 10/10. Pt can move hand and fingers but causes severe pain. Pt denies recent injury to arm or ever any injury. Pt denies falling. Nursing Sepsis Screen: No Definite Risk Source: patient Exam Limitations: no limitations History of Present Illness Date Seen by Provider: Nov 22, 2019 Time Seen by Provider: 12:30 Initial Comments The patient presents to ER by private conveyance with chief complaint that she is having pain in her right upper extremity concentrated over her right wrist t he dorsum of her 5 fingers and thumb. She says yesterday was just some pain in her thumb. The past several months she's had paresthesias that she describes as tingling all up and down her right arm. She says is getting worse today with the pain and describes it as non-itching just pain, severe. No history of diabetes. She's not been on steroids before. She says she brought up the tingling off handed to Dr. Nevarez in the past and he suggested that if it continued he would send her to a specialist to address the nerves in her neck. No fever or rash. No history of shingles. Allergies and Home Medications Allergies Coded Allergies: No Known Drug Allergies (Verified , 05/03/16) Home Medications Acyclovir 400 Mg Tablet, 400 MG PO BID, (Reported) Albuterol Sulfate 2.5 Mg/0.5 Ml Vial.neb, 2.5 MG INH Q6H PRN for SHORTNESS OF BREATH, (Reported) Aspirin 81 Mg Tablet.dr, 81 MG PO DAILY, (Reported) Atenolol 25 Mg Tablet, 25 MG PO DAILY, (Reported) Atorvastatin Calcium 40 Mg Tablet, 40 MG PO HS, (Reported) Calcium Carbonate/Vitamin D3 1 Each Tablet, 1 EACH PO BID, (Reported) Cetirizine HCl 10 Mg Tablet, 10 MG PO DAILY, (Reported) Citalopram Hydrobromide 20 Mg Tablet, 20 MG PO DAILY, (Reported) Clopidogrel Bisulfate 75 Mg Tablet, 75 MG PO DAILY, (Reported) Diphenhydramine HCl 25 Mg Capsule, 25 MG PO HS PRN for INSOMNIA, (Reported) Donepezil HCl 10 Mg Tablet, 10 MG PO HS, (Reported) Fluticasone Propionate 9.9 Ml [place].susp, 1 SPRAY NS DAILY PRN for CONGESTION, (Reported) 1 SPRAY EACH NARE DAILY Guaifenesin 100 Mg/5 Ml Liquid, 20 ML PO Q8H PRN for COUGH, (Reported) Linaclotide 72 Mcg Capsule, 72 MCG PO DAILY PRN for CONSTIPATION-1ST LINE, (Reported) Loperamide HCl 2 Mg Tablet, 4 MG PO PRN PRN for DIARRHEA, (Reported) Losartan/Hydrochlorothiazide 1 Each Tablet, 1 EACH PO DAILY, (Reported) Magnesium Oxide 250 Mg Tablet, 250 MG PO BID, (Reported) [place]-3 Fatty Acids/Fish Oil 1 Each Capsule.dr, 2 EACH PO BID, (Reported) Omeprazole 40 Mg Capsule.dr, 40 MG PO DAILY, (Reported) Ondansetron HCl 8 Mg Tablet, 8 MG PO Q8H PRN for NAUSEA/VOMITING-1ST LINE, (Reported) Peg 400/Hypromellose/Glycerin 15 Ml Drops, 2 DROP OU PRN PRN for DRY EYES, (Reported) Potassium Gluconate 500 Mg Tablet, 500 MG PO HS, (Reported) Patient Home Medication List Home Medication List Reviewed: Yes Review of Systems Constitutional: No chills, No diaphoresis EENTM: No ear discharge, No ear pain Respiratory: No cough, No short of breath Cardiovascular: No edema, No palpitations Gastrointestinal: No abdominal pain, No nausea Genitourinary: No discharge, No dysuria All Other Systems Reviewed Negative Unless Noted: Yes Past Cgotbgs-Gaouzu-Fwsfqw Hx Patient Social History Alcohol Use: Rarely Uses Number of Drinks Today: AA Alcohol Beverage of Choice: Beer Recreational Drug Use: No Smoking Status: Never a Smoker Type Used: Cigarettes Former Smoker, Quit: Feb 10, 2014 Recent Foreign Travel: No Contact w/Someone Who Travel: No Recent Infectious Disease Expo: No Recent Hopitalizations: No Physical Abuse: No Sexual Abuse: No Immunizations Up To Date Tetanus Booster (TDap): More than 5yrs Date of Pneumonia Vaccine: Mar 11, 2015 Date of Influenza Vaccine: Feb 16, 2019 Seasonal Allergies Seasonal Allergies: Yes Past Medical History Surgeries: Yes (LEFT BREAST/COLONOSCOPY-POLYP REMVED, PREV CEA) Breast, Coronary Stent, Tonsillectomy, Vascular Surgery Respiratory: Yes Pneumonia, Sleep Apnea Currently Using CPAP: Yes Currently Using BIPAP: No Cardiac: Yes Hypertension, Peripheral Vascular Neurological: Yes Reproductive Disorders: No Female Reproductive Disorders: Denies Sexually Transmitted Disease: No Genitourinary: No Gastrointestinal: Yes (DIARRHEA (NERVOUS BOWEL)) Gastroesophageal Reflux Musculoskeletal: Yes (ARTHRITIS KNEE'S) Arthritis Endocrine: No HEENT: Yes Cataract Loss of Vision: Bilateral Hearing Impairment: Hard of Hearing Cancer: Yes Leukemia, Breast Psychosocial: Yes Anxiety, Depression Integumentary: No Blood Disorders: No Adverse Reaction/Blood Tranf: No Family Medical History FHx: gastric ulcer 19 FATHER Stroke or transient ischemic attack in mother Physical Exam Vital Signs Vital Signs - First Documented 11/22/19 12:16 Temp 36.9 Pulse 68 Resp 16 B/P (MAP) 150/64 (92) Pulse Ox 93 O2 Delivery Room Air Capillary Refill : Less Than 3 Seconds Height, Weight, BMI Height: 5'3.00" Weight: 197lbs. 0.0oz. [id number]; 32.00 BMI Method:Estimated General Appearance: WD/WN, moderate distress HEENT: normal ENT inspection, pharynx normal Neck: non-tender, full range of motion, supple, normal inspection Cardiovascular: normal peripheral pulses, regular rate, rhythm Respiratory: no respiratory distress, no accessory muscle use Shoulder: normal inspection, non-tender, no evidence of injury, normal ROM Elbow/Forearm: normal inspection, no evidence of injury, normal ROM Wrist: Yes normal inspection, Yes soft tissue tenderness (exquisitely tender to light palpation over the skin.) Hand: normal inspection, normal ROM, Right Neurologic/Psychiatric: alert, normal mood/affect, oriented x 3 Skin: normal color, warm/dry Progress/Results/Core Measures Results/Orders My Orders Orders - MISAEL CORLEY Hydrocodone/Apap 5/325 Tablet (Lortab 5 (11/22/19 12:45) Gabapentin Capsule/Tablet (Neurontin Cap (11/22/19 12:45) Ct Cervical Spine Wo (11/22/19 12:41) Wrist, Right, 3 Views Or More (11/22/19 12:41) Medications Given in ED Current Medications Medications Dose Ordered Sig/Iris Route Start Time Stop Time Status Last Admin Dose Admin Acetaminophen/ Hydrocodone Bitart 1 tab ONCE ONCE PO 11/22/19 12:45 11/22/19 12:46 DC 11/22/19 13:01 1 TAB Gabapentin 100 mg ONCE ONCE PO 11/22/19 12:45 11/22/19 12:46 DC 11/22/19 13:01 100 MG Vital Signs/I&O 11/22/19 12:16 Temp 36.9 Pulse 68 Resp 16 B/P (MAP) 150/64 (92) Pulse Ox 93 O2 Delivery Room Air Blood Pressure Mean: 92 Progress Progress Note #1: Time: 12:47 Progress Note Months of paresthesias now graduating the past couple days to pain in the d istribution of her radial nerve on the right upper extremity. No evidence of any trauma by history or examination. No evidence of rash, shingles or other swelling that would suggest a peripheral impingement. The plan to get a CT of her neck to rule out significant fracture tumor that might be causing a radiculopathy. Gabapentin and hydrocodone for her discomfort as she rates it cur rently as a 10 out of 10. We'll x-ray the hand to rule out trauma although the patient has denied any history of trauma. No erythema or swelling suggest cellulitis or infection. We'll probably send her home with some pain medication and follow-up instructions with Dr. Nevarez. Plus or minus a steroid. Progress Note #2: Time: 15:20 Progress Note Patient's pain is significantly improved and she is ready to go home. Plan to put her out on gabapentin and some steroids. Diagnostic Imaging Diagonstic Imaging: Xray Plain Films/CT/US/NM/MRI: hand (Right) Comments NAME: RADHA NOVOA [facility] REC#: [id number] PT STATUS: REG ER : 1940 PHYSICIAN: MISAEL CORLEY MD ADMIT DATE: 11/22/19/ER Draft Date of Exam:11/22/19 WRIST, RIGHT, 3 VIEWS OR MORE INDICATION: Pain. Denies recent injury. TECHNIQUE: Three views of the right wrist. CORRELATION STUDY: None. FINDINGS: Generalized bony demineralization is present. Mild narrowing at the radiocarpal row. Scapholunate interval appears to be maintained. Mild calcification of the triangular fibrocartilage complex. Some very small cystic change of the capitate. Mild to moderately advanced degenerative change of the first carpometacarpal articulation. Mild marginal osteophyte formation at the trapezium. Some generalized soft tissue swelling. IMPRESSION: 1. Negative examination of the wrist. Multifocal compartment degenerative change is present. Dictated on workstation # [id number] Dict: 11/22/19 1408 Trans: 11/22/19 1422 [id number] [id number] Interpreted by: TISH SORIA DO Electronically signed by: Reviewed: Reviewed by Me Diagonstic Imaging: CT (without IV contrast) Plain Films/CT/US/NM/MRI: c-spine Comments NAME: RADHA NOVOA [facility] REC#: [id number] PT STATUS: REG ER : 1940 PHYSICIAN: MISAEL CORLEY MD ADMIT DATE: 11/22/19/ER Signed Date of Exam:11/22/19 CT CERVICAL SPINE WO PROCEDURE: CT cervical spine without contrast. TECHNIQUE: Multiple contiguous axial images were obtained through the cervical spine without the use of intravenous contrast. Sagittal and coronal reformations were then performed. Auto Exposure Controls were utilized during the CT exam to meet ALARA standards for radiation dose reduction. Date: November 22, 2019. Indication: 78-year-old female, right arm pain. Comparison: CT neck December 05, 2013. Findings: There is no identified facet joint subluxation or dislocation. There are mild facet degenerative changes of the cervical spine. There is no asymmetric widening of the cervical disc spaces. There is no prominent prevertebral soft tissue swelling. There is moderate disc height loss at C5-C6 with endplate degenerative related changes. There is a small posterior disc osteophyte complex at this level. The additional cervical disc heights are well preserved. CT is limited for assessment of disc pathology as well as evaluation of additional nonbloody causes of pathology in the spinal canal. There is no identified acute fracture of the cervical spine. There is a right upper lobe pulmonary nodule on axial image 71 which measures 6 mm in size. There are carotid vascular calcifications bilaterally, more prominent on the left. Impression: 1. Advanced disc degenerative changes at C5-C6 with small posterior disc osteophyte complex. CT is limited for assessment of nonbony causes of foraminal and spinal stenosis. This would be more optimally evaluated with MRI cervical spine area of indicated clinically. 2. No acute fracture or malalignment of the cervical spine. Dictated by: Dictated on workstation # [id number] Dict: 11/22/19 1324 Trans: 11/22/19 1337 [facility] [id number] Interpreted by: JERILYN HAMMOND MD Electronically signed by: JERILYN HAMMOND MD 11/22/19 1337 Reviewed: Reviewed by Me Departure Impression Primary Impression: Cervical radiculopathy Disposition: HOME, SELF-CARE Condition: Stable Departure-Patient Inst. Decision time for Depature: 15:21 Referrals: CLIVE NEVAREZ MD (PCP/Family) Primary Care Physician Patient Instructions: Radiculopathy (DC) Add. Discharge Instructions: I believe you have a pinched nerves in wearing her neck that could be causing the pain in your right arm. Gabapentin 100 mg every 6 hours as necessary for breakthrough pain. You may use Tylenol 1000 mg every 8 hours as necessary. Heating pads along with topical creams applied your neck and shoulder may help relieve some of the pain. Prednisone 2 tablets daily for the next 5 days to help relieve some of the swelling in your neck that is leading to the pain in your arm. Finally plan on following up with Dr. Nevarez to reexamine the neck and appropriate management. All discharge instructions reviewed with patient and/or family. Voiced understanding. Scripts Gabapentin (Gabapentin) 100 Mg Capsule 100 MG PO Q6H PRN for pain, #30 CAP 0 Refills Prov: MISAEL CORLEY 11/22/19 Prednisone (Prednisone) 20 Mg Tab 40 MG PO DAILY for 5 Days, #10 TAB 0 Refills Prov: MISAEL CORLEY 11/22/19 MISAEL CORLEY Nov 22, 2019 12:48
--- NOTE | 2019-11-22 13:30 | NUR ---
This RN received report from RHIANNA Jenkins
--- NOTE | 2019-11-22 13:37 | Diagnostic Imaging Report ---
PROCEDURE: CT cervical spine without contrast. TECHNIQUE: Multiple contiguous axial images were obtained through the cervical spine without the use of intravenous contrast. Sagittal and coronal reformations were then performed. Auto Exposure Controls were utilized during the CT exam to meet ALARA standards for radiation dose reduction. Date: November 22, 2019. Indication: 78-year-old female, right arm pain. Comparison: CT neck December 05, 2013. Findings: There is no identified facet joint subluxation or dislocation. There are mild facet degenerative changes of the cervical spine. There is no asymmetric widening of the cervical disc spaces. There is no prominent prevertebral soft tissue swelling. There is moderate disc height loss at C5-C6 with endplate degenerative related changes. There is a small posterior disc osteophyte complex at this level. The additional cervical disc heights are well preserved. CT is limited for assessment of disc pathology as well as evaluation of additional nonbloody causes of pathology in the spinal canal. There is no identified acute fracture of the cervical spine. There is a right upper lobe pulmonary nodule on axial image 71 which measures 6 mm in size. There are carotid vascular calcifications bilaterally, more prominent on the left. Impression: 1. Advanced disc degenerative changes at C5-C6 with small posterior disc osteophyte complex. CT is limited for assessment of nonbony causes of foraminal and spinal stenosis. This would be more optimally evaluated with MRI cervical spine area of indicated clinically. 2. No acute fracture or malalignment of the cervical spine. Dictated by: Dictated on workstation # [id number]
--- NOTE | 2019-11-22 14:23 | Diagnostic Imaging Report ---
INDICATION: Pain. Denies recent injury. TECHNIQUE: Three views of the right wrist. CORRELATION STUDY: None. FINDINGS: Generalized bony demineralization is present. Mild narrowing at the radiocarpal row. Scapholunate interval appears to be maintained. Mild calcification of the triangular fibrocartilage complex. Some very small cystic change of the capitate. Mild to moderately advanced degenerative change of the first carpometacarpal articulation. Mild marginal osteophyte formation at the trapezium. Some generalized soft tissue swelling. IMPRESSION: 1. Negative examination of the wrist. Multifocal compartment degenerative change is present. Dictated by: Dictated on workstation # [id number]
[2019-11-22] MEDS ORDERED: PRD20T PO (15:27)
[2019-11-22] MEDS ORDERED: GABA-486 PO (15:27)
[2019-11-22 15:46] VITALS: BP 132/86
== END 2019-11-22 15:33 | disposition home or self-care (01) ==
LOC: EDUNIT# 12:03 → ER 12:05
DX: M54.12 Radiculopathy, cervical region (principal); I10 Essential (primary) hypertension; K21.9 Gastro-esophageal reflux disease without esophagitis; F41.9 Anxiety disorder, unspecified; F32.9 Major depressive disorder, single episode, unspecified; Z85.3 Personal history of malignant neoplasm of breast; Z85.6 Personal history of leukemia; Z79.82 Long term (current) use of aspirin; Z79.02 Long term (current) use of antithrombotics/antiplatelets; Z79.51 Long term (current) use of inhaled steroids; Z87.891 Personal history of nicotine dependence; Z95.5 Presence of coronary angioplasty implant and graft
CPT/HCPCS: 72125; 73110

== ENCOUNTER → 2019-11-23 | Outpatient (CLI) | payer MEDICARE ==
[~2019-11-23] MED LIST changes: +GABA-486 PO; +PRD20T PO
--- NOTE | 2019-11-23 12:37 | Diagnostic Imaging Report ---
INDICATION: Right arm pain and swelling. Grayscale, color-flow and Doppler evaluation of the right upper extremity venous system was performed. Right internal jugular vein is patent. Right subclavian and axillary veins are patent. There does appear to be thrombus throughout the brachial vein. Basilic, cephalic, radial and ulnar veins are patent. No fluid collections are seen. IMPRESSION: Brachial vein DVT, as described. Dictated by: Dictated on workstation # [id number]
== END ==
LOC: RAD 11:08
PROVIDERS: ATTEND Nurse Practitioner Adult Health
DX: I82.621 Acute embolism and thrombosis of deep veins of right upper extremity (principal)

== ENCOUNTER → 2019-12-19 | Outpatient (CLI) | payer MEDICARE ==
--- NOTE | 2019-12-19 08:30 | Diagnostic Imaging Report ---
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 FINDINGS: There continues to be occlusive thrombus within the brachial vein in the arm. Jugular, subclavian, axillary, basilic, radial and ulnar veins remain patent. 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 Dictated by: Dictated on workstation # [id number]
--- NOTE | 2019-12-19 08:33 | Diagnostic Imaging Report ---
PROCEDURE: CT cervical spine without contrast. TECHNIQUE: Multiple contiguous axial images were obtained through the cervical spine without the use of intravenous contrast. Sagittal and coronal reformations were then performed. Auto Exposure Controls were utilized during the CT exam to meet ALARA standards for radiation dose reduction. INDICATION: Neck pain. COMPARISON: 11/22/2019 FINDINGS: Evaluation of static alignment shows slight grade 1 retrolisthesis at C5-C6. This may be degenerative in nature. There is no evidence of jumped facets. Vertebral body heights are maintained. There is no acute fracture. No bony fragments are seen within the spinal canal. Degenerative changes at C5-C6 are also noted. This consists of intervertebral disc height loss with anterior and posterior disc osteophyte complex formations. Pre and paravertebral soft tissue structures are unremarkable. Note is made of calcified carotid atherosclerosis. Included portions of lung apices show no additional acute abnormalities. IMPRESSION: 1. No acute fracture or dislocation of the cervical spine. 2. Degenerative changes greatest at C5-C6. Dictated by: Dictated on workstation # [id number]
== END ==
LOC: RAD 07:05
PROVIDERS: ATTEND Physician Assistant
DX: I82.621 Acute embolism and thrombosis of deep veins of right upper extremity (principal); M47.812 Spondylosis without myelopathy or radiculopathy, cervical region
CPT/HCPCS: 72125

== ENCOUNTER 2019-12-21 13:24 | Outpatient (RCR) | payer MEDICARE ==
[2019-09-28 09:01] LABS: BASOPHILS % (AUTO) 1 % (0-10); EOSINOPHILS % (AUTO) 1 % (0-10); HEMATOCRIT 32 % (35-52); HEMOGLOBIN 10.7 G/DL (11.5-16.0); LYMPHOCYTES % (AUTO) 49 % (12-44); MEAN CORPUSCULAR HEMOGLOBIN 31 PG (25-34); MEAN CORPUSCULAR HGB CONC 34 G/DL (32-36); MEAN CORPUSCULAR VOLUME 92 FL (80-99); MEAN PLATELET VOLUME 8.3 FL (7.4-10.4); MONOCYTES # (AUTO) 0.2 X 10^3 (0.0-1.0); MONOCYTES % (AUTO) 8 % (0-12); NEUTROPHILS # (AUTO) 0.8 X 10^3 (1.8-7.8); NEUTROPHILS % (AUTO) 41 % (42-75); PLATELET COUNT 219 10^3/uL (130-400); RED CELL DISTRIBUTION WIDTH 15.7 % (10.0-14.5)
[2019-09-28 09:20] LABS: CALCIUM 8.7 MG/DL (8.5-10.1); CREATININE SERUM 1.27 MG/DL (0.60-1.30); POTASSIUM 4.4 MMOL/L (3.6-5.0)
[2019-09-30 13:28] LABS: BASOPHILS % (AUTO) 0 % (0-10); EOSINOPHILS % (AUTO) 0 % (0-10); HEMATOCRIT 32 % (35-52); HEMOGLOBIN 10.6 G/DL (11.5-16.0); LYMPHOCYTES # (AUTO) 0.9 X 10^3 (1.0-4.0); LYMPHOCYTES % (AUTO) 37 % (12-44); MEAN CORPUSCULAR HEMOGLOBIN 31 PG (25-34); MEAN CORPUSCULAR HGB CONC 33 G/DL (32-36); MEAN CORPUSCULAR VOLUME 92 FL (80-99); MEAN PLATELET VOLUME 8.6 FL (7.4-10.4); MONOCYTES # (AUTO) 0.1 X 10^3 (0.0-1.0); MONOCYTES % (AUTO) 4 % (0-12); NEUTROPHILS # (AUTO) 1.5 X 10^3 (1.8-7.8); NEUTROPHILS % (AUTO) 58 % (42-75); PLATELET COUNT 220 10^3/uL (130-400); RED CELL DISTRIBUTION WIDTH 16.1 % (10.0-14.5); WHITE BLOOD COUNT 2.5 10^3/uL (4.3-11.0)
[2019-09-30 13:44] LABS: CALCIUM 8.6 MG/DL (8.5-10.1); CREATININE SERUM 1.32 MG/DL (0.60-1.30); POTASSIUM 4.2 MMOL/L (3.6-5.0)
[2019-10-05 09:36] LABS: BASOPHILS % (AUTO) 0 % (0-10); EOSINOPHILS % (AUTO) 0 % (0-10); HEMATOCRIT 34 % (35-52); HEMOGLOBIN 11.6 G/DL (11.5-16.0); LYMPHOCYTES # (AUTO) 0.8 X 10^3 (1.0-4.0); LYMPHOCYTES % (AUTO) 32 % (12-44); MEAN CORPUSCULAR HEMOGLOBIN 31 PG (25-34); MEAN CORPUSCULAR HGB CONC 34 G/DL (32-36); MEAN CORPUSCULAR VOLUME 91 FL (80-99); MEAN PLATELET VOLUME 8.6 FL (7.4-10.4); MONOCYTES # (AUTO) 0.1 X 10^3 (0.0-1.0); MONOCYTES % (AUTO) 6 % (0-12); NEUTROPHILS # (AUTO) 1.4 X 10^3 (1.8-7.8); NEUTROPHILS % (AUTO) 61 % (42-75); PLATELET COUNT 236 10^3/uL (130-400); WHITE BLOOD COUNT 2.3 10^3/uL (4.3-11.0)
[2019-10-05 09:55] LABS: CALCIUM 9.2 MG/DL (8.5-10.1); CREATININE SERUM 1.26 MG/DL (0.60-1.30); POTASSIUM 4.3 MMOL/L (3.6-5.0)
[2019-10-07 13:24] LABS: CALCIUM 8.9 MG/DL (8.5-10.1); CREATININE SERUM 1.19 MG/DL (0.60-1.30); POTASSIUM 4.4 MMOL/L (3.6-5.0)
[2019-10-10 13:59] LABS: BASOPHILS % (AUTO) 0 % (0-10); EOSINOPHILS % (AUTO) 0 % (0-10); HEMATOCRIT 33 % (35-52); HEMOGLOBIN 11.3 G/DL (11.5-16.0); LYMPHOCYTES # (AUTO) 0.9 X 10^3 (1.0-4.0); LYMPHOCYTES % (AUTO) 36 % (12-44); MEAN CORPUSCULAR HEMOGLOBIN 31 PG (25-34); MEAN CORPUSCULAR HGB CONC 34 G/DL (32-36); MEAN CORPUSCULAR VOLUME 91 FL (80-99); MONOCYTES # (AUTO) 0.2 X 10^3 (0.0-1.0); MONOCYTES % (AUTO) 6 % (0-12); NEUTROPHILS # (AUTO) 1.4 X 10^3 (1.8-7.8); NEUTROPHILS % (AUTO) 57 % (42-75); PLATELET COUNT 253 10^3/uL (130-400); RED CELL DISTRIBUTION WIDTH 15.8 % (10.0-14.5); WHITE BLOOD COUNT 2.4 10^3/uL (4.3-11.0)
[2019-10-10 14:17] LABS: CALCIUM 8.8 MG/DL (8.5-10.1); CREATININE SERUM 1.3 MG/DL (0.60-1.30); POTASSIUM 4.3 MMOL/L (3.6-5.0)
[2019-10-13 13:31] LABS: BASOPHILS % (AUTO) 0 % (0-10); EOSINOPHILS % (AUTO) 0 % (0-10); HEMATOCRIT 33 % (35-52); HEMOGLOBIN 11.1 G/DL (11.5-16.0); LYMPHOCYTES # (AUTO) 0.9 X 10^3 (1.0-4.0); LYMPHOCYTES % (AUTO) 34 % (12-44); MEAN CORPUSCULAR HEMOGLOBIN 31 PG (25-34); MEAN CORPUSCULAR HGB CONC 34 G/DL (32-36); MEAN CORPUSCULAR VOLUME 91 FL (80-99); MEAN PLATELET VOLUME 8.5 FL (7.4-10.4); MONOCYTES # (AUTO) 0.3 X 10^3 (0.0-1.0); MONOCYTES % (AUTO) 9 % (0-12); NEUTROPHILS # (AUTO) 1.5 X 10^3 (1.8-7.8); NEUTROPHILS % (AUTO) 56 % (42-75); PLATELET COUNT 260 10^3/uL (130-400); RED CELL DISTRIBUTION WIDTH 15.5 % (10.0-14.5); WHITE BLOOD COUNT 2.7 10^3/uL (4.3-11.0)
[2019-10-13 13:45] LABS: CALCIUM 8.7 MG/DL (8.5-10.1); CREATININE SERUM 1.14 MG/DL (0.60-1.30); POTASSIUM 4.4 MMOL/L (3.6-5.0)
[2019-10-19 13:54] LABS: BASOPHILS % (AUTO) 0 % (0-10); EOSINOPHILS % (AUTO) 0 % (0-10); HEMATOCRIT 33 % (35-52); HEMOGLOBIN 11.3 G/DL (11.5-16.0); LYMPHOCYTES # (AUTO) 0.9 X 10^3 (1.0-4.0); LYMPHOCYTES % (AUTO) 29 % (12-44); MEAN CORPUSCULAR HEMOGLOBIN 30 PG (25-34); MEAN CORPUSCULAR HGB CONC 34 G/DL (32-36); MEAN CORPUSCULAR VOLUME 89 FL (80-99); MEAN PLATELET VOLUME 8.4 FL (7.4-10.4); MONOCYTES # (AUTO) 0.3 X 10^3 (0.0-1.0); MONOCYTES % (AUTO) 11 % (0-12); NEUTROPHILS # (AUTO) 1.9 X 10^3 (1.8-7.8); NEUTROPHILS % (AUTO) 60 % (42-75); PLATELET COUNT 281 10^3/uL (130-400); RED CELL DISTRIBUTION WIDTH 15.1 % (10.0-14.5); WHITE BLOOD COUNT 3.1 10^3/uL (4.3-11.0)
[2019-10-19 14:09] LABS: CALCIUM 8.6 MG/DL (8.5-10.1); CREATININE SERUM 1.16 MG/DL (0.60-1.30); POTASSIUM 4.7 MMOL/L (3.6-5.0)
[2019-10-26 11:05] LABS: BASOPHILS % (AUTO) 0 % (0-10); EOSINOPHILS % (AUTO) 0 % (0-10); HEMATOCRIT 31 % (35-52); HEMOGLOBIN 10.6 G/DL (11.5-16.0); LYMPHOCYTES # (AUTO) 0.7 X 10^3 (1.0-4.0); LYMPHOCYTES % (AUTO) 23 % (12-44); MEAN CORPUSCULAR HEMOGLOBIN 31 PG (25-34); MEAN CORPUSCULAR HGB CONC 34 G/DL (32-36); MEAN CORPUSCULAR VOLUME 92 FL (80-99); MEAN PLATELET VOLUME 8.5 FL (7.4-10.4); MONOCYTES # (AUTO) 0.5 X 10^3 (0.0-1.0); MONOCYTES % (AUTO) 18 % (0-12); NEUTROPHILS # (AUTO) 1.7 X 10^3 (1.8-7.8); NEUTROPHILS % (AUTO) 59 % (42-75); PLATELET COUNT 237 10^3/uL (130-400); RED CELL DISTRIBUTION WIDTH 14.7 % (10.0-14.5); WHITE BLOOD COUNT 2.9 10^3/uL (4.3-11.0)
[2019-10-26 11:36] LABS: ALBUMIN 3.9 GM/DL (3.2-4.5); BILIRUBIN,TOTAL 0.7 MG/DL (0.1-1.0); CALCIUM 8.7 MG/DL (8.5-10.1); CREATININE SERUM 0.99 MG/DL (0.60-1.30); POTASSIUM 4.2 MMOL/L (3.6-5.0); TOTAL PROTEIN 6.2 GM/DL (6.4-8.2)
[2019-11-02 14:42] LABS: BASOPHILS % (AUTO) 0 % (0-10); EOSINOPHILS % (AUTO) 0 % (0-10); HEMATOCRIT 33 % (35-52); HEMOGLOBIN 10.8 G/DL (11.5-16.0); LYMPHOCYTES # (AUTO) 0.9 X 10^3 (1.0-4.0); LYMPHOCYTES % (AUTO) 20 % (12-44); MEAN CORPUSCULAR HEMOGLOBIN 31 PG (25-34); MEAN CORPUSCULAR HGB CONC 33 G/DL (32-36); MEAN CORPUSCULAR VOLUME 93 FL (80-99); MEAN PLATELET VOLUME 8.7 FL (7.4-10.4); MONOCYTES # (AUTO) 0.8 X 10^3 (0.0-1.0); MONOCYTES % (AUTO) 19 % (0-12); NEUTROPHILS # (AUTO) 2.7 X 10^3 (1.8-7.8); NEUTROPHILS % (AUTO) 60 % (42-75); PLATELET COUNT 269 10^3/uL (130-400); RED CELL DISTRIBUTION WIDTH 14.5 % (10.0-14.5); WHITE BLOOD COUNT 4.5 10^3/uL (4.3-11.0)
[2019-11-02 15:10] LABS: CALCIUM 8.9 MG/DL (8.5-10.1); CREATININE SERUM 1.39 MG/DL (0.60-1.30); POTASSIUM 4.1 MMOL/L (3.6-5.0)
[2019-11-09 14:29] LABS: BASOPHILS % (AUTO) 0 % (0-10); EOSINOPHILS % (AUTO) 0 % (0-10); HEMATOCRIT 37 % (35-52); HEMOGLOBIN 12.3 G/DL (11.5-16.0); LYMPHOCYTES # (AUTO) 1.1 X 10^3 (1.0-4.0); LYMPHOCYTES % (AUTO) 21 % (12-44); MEAN CORPUSCULAR HEMOGLOBIN 31 PG (25-34); MEAN CORPUSCULAR HGB CONC 33 G/DL (32-36); MEAN CORPUSCULAR VOLUME 92 FL (80-99); MEAN PLATELET VOLUME 8.8 FL (7.4-10.4); MONOCYTES # (AUTO) 1.1 X 10^3 (0.0-1.0); MONOCYTES % (AUTO) 21 % (0-12); NEUTROPHILS # (AUTO) 2.9 X 10^3 (1.8-7.8); NEUTROPHILS % (AUTO) 57 % (42-75); PLATELET COUNT 354 10^3/uL (130-400); RED CELL DISTRIBUTION WIDTH 14.4 % (10.0-14.5)
[2019-11-09 14:40] LABS: CALCIUM 9.3 MG/DL (8.5-10.1); CREATININE SERUM 1.61 MG/DL (0.60-1.30); POTASSIUM 5.1 MMOL/L (3.6-5.0)
[2019-11-16 13:44] LABS: BASOPHILS % (AUTO) 0 % (0-10); EOSINOPHILS % (AUTO) 0 % (0-10); HEMATOCRIT 35 % (35-52); HEMOGLOBIN 11.9 G/DL (11.5-16.0); LYMPHOCYTES # (AUTO) 0.9 X 10^3 (1.0-4.0); LYMPHOCYTES % (AUTO) 22 % (12-44); MEAN CORPUSCULAR HEMOGLOBIN 31 PG (25-34); MEAN CORPUSCULAR HGB CONC 34 G/DL (32-36); MEAN CORPUSCULAR VOLUME 91 FL (80-99); MEAN PLATELET VOLUME 9.1 FL (7.4-10.4); MONOCYTES # (AUTO) 0.8 X 10^3 (0.0-1.0); MONOCYTES % (AUTO) 19 % (0-12); NEUTROPHILS # (AUTO) 2.5 X 10^3 (1.8-7.8); NEUTROPHILS % (AUTO) 59 % (42-75); PLATELET COUNT 302 10^3/uL (130-400); RED CELL DISTRIBUTION WIDTH 13.8 % (10.0-14.5); WHITE BLOOD COUNT 4.2 10^3/uL (4.3-11.0)
[2019-11-16 14:03] LABS: CALCIUM 9.4 MG/DL (8.5-10.1); CREATININE SERUM 1.43 MG/DL (0.60-1.30); POTASSIUM 4.7 MMOL/L (3.6-5.0)
[2019-11-23 10:13] LABS: BASOPHILS % (AUTO) 0 % (0-10); EOSINOPHILS % (AUTO) 0 % (0-10); HEMATOCRIT 34 % (35-52); HEMOGLOBIN 11.6 G/DL (11.5-16.0); LYMPHOCYTES # (AUTO) 0.4 X 10^3 (1.0-4.0); LYMPHOCYTES % (AUTO) 4 % (12-44); MEAN CORPUSCULAR HEMOGLOBIN 31 PG (25-34); MEAN CORPUSCULAR HGB CONC 34 G/DL (32-36); MEAN CORPUSCULAR VOLUME 92 FL (80-99); MEAN PLATELET VOLUME 9.2 FL (7.4-10.4); MONOCYTES # (AUTO) 1.1 X 10^3 (0.0-1.0); MONOCYTES % (AUTO) 11 % (0-12); NEUTROPHILS # (AUTO) 8.2 X 10^3 (1.8-7.8); NEUTROPHILS % (AUTO) 85 % (42-75); PLATELET COUNT 255 10^3/uL (130-400); RED CELL DISTRIBUTION WIDTH 13.6 % (10.0-14.5); WHITE BLOOD COUNT 9.7 10^3/uL (4.3-11.0)
[2019-11-23 10:41] LABS: ALBUMIN 4.3 GM/DL (3.2-4.5); BILIRUBIN,TOTAL 1.6 MG/DL (0.1-1.0); CALCIUM 9.6 MG/DL (8.5-10.1); CREATININE SERUM 1.41 MG/DL (0.60-1.30); POTASSIUM 4.3 MMOL/L (3.6-5.0); TOTAL PROTEIN 7.4 GM/DL (6.4-8.2)
[2019-11-23 11:04] LABS: URIC ACID 7.3 MG/DL (2.6-7.2)
[2019-12-07 11:25] LABS: BASOPHILS % (AUTO) 0 % (0-10); EOSINOPHILS % (AUTO) 0 % (0-10); HEMATOCRIT 34 % (35-52); HEMOGLOBIN 11.2 G/DL (11.5-16.0); LYMPHOCYTES # (AUTO) 0.9 X 10^3 (1.0-4.0); LYMPHOCYTES % (AUTO) 21 % (12-44); MEAN CORPUSCULAR HEMOGLOBIN 30 PG (25-34); MEAN CORPUSCULAR HGB CONC 33 G/DL (32-36); MEAN CORPUSCULAR VOLUME 92 FL (80-99); MEAN PLATELET VOLUME 8.7 FL (7.4-10.4); MONOCYTES # (AUTO) 0.7 X 10^3 (0.0-1.0); MONOCYTES % (AUTO) 17 % (0-12); NEUTROPHILS # (AUTO) 2.7 X 10^3 (1.8-7.8); NEUTROPHILS % (AUTO) 63 % (42-75); PLATELET COUNT 308 10^3/uL (130-400); RED CELL DISTRIBUTION WIDTH 13.5 % (10.0-14.5); WHITE BLOOD COUNT 4.4 10^3/uL (4.3-11.0)
[2019-12-07 11:43] LABS: CALCIUM 9.3 MG/DL (8.5-10.1); CREATININE SERUM 1.47 MG/DL (0.60-1.30); POTASSIUM 4.6 MMOL/L (3.6-5.0)
[2019-12-14 14:59] LABS: BASOPHILS % (AUTO) 0 % (0-10); EOSINOPHILS % (AUTO) 0 % (0-10); HEMATOCRIT 35 % (35-52); HEMOGLOBIN 11.7 G/DL (11.5-16.0); LYMPHOCYTES # (AUTO) 0.9 X 10^3 (1.0-4.0); LYMPHOCYTES % (AUTO) 20 % (12-44); MEAN CORPUSCULAR HEMOGLOBIN 31 PG (25-34); MEAN CORPUSCULAR HGB CONC 34 G/DL (32-36); MEAN CORPUSCULAR VOLUME 92 FL (80-99); MEAN PLATELET VOLUME 8.7 FL (7.4-10.4); MONOCYTES # (AUTO) 0.8 X 10^3 (0.0-1.0); MONOCYTES % (AUTO) 17 % (0-12); NEUTROPHILS % (AUTO) 63 % (42-75); PLATELET COUNT 310 10^3/uL (130-400); RED CELL DISTRIBUTION WIDTH 13.7 % (10.0-14.5); WHITE BLOOD COUNT 4.7 10^3/uL (4.3-11.0)
[2019-12-14 15:24] LABS: CALCIUM 9.2 MG/DL (8.5-10.1); CREATININE SERUM 1.26 MG/DL (0.60-1.30); POTASSIUM 4.5 MMOL/L (3.6-5.0)
[~2019-12-21 13:24] MED LIST changes: +ACETAMINOPHEN 500 MG TAB (TYLENOL) CANCER CTR PO PRN; +NS IV 1000 ML (CANCER CTR) IV SCH; +diphenhydrAMINE 25 MG TAB (BENADRYL) CANCER CENTER PO SCH; +riTUXimab 1,000 MG in NS (IVPB) CANCER CENTER 233 ML IV SCH; +riTUXimab 500 MG, riTUXimab FOR IV INJ CONC 200 MG in NS (IVPB) CANCER CENTER ONLY 150 ML IV SCH
[2019-12-21 13:36] LABS: BASOPHILS % (AUTO) 0 % (0-10); EOSINOPHILS % (AUTO) 0 % (0-10); HEMATOCRIT 35 % (35-52); HEMOGLOBIN 11.7 G/DL (11.5-16.0); LYMPHOCYTES # (AUTO) 1.1 X 10^3 (1.0-4.0); LYMPHOCYTES % (AUTO) 22 % (12-44); MEAN CORPUSCULAR HEMOGLOBIN 31 PG (25-34); MEAN CORPUSCULAR HGB CONC 34 G/DL (32-36); MEAN CORPUSCULAR VOLUME 92 FL (80-99); MONOCYTES % (AUTO) 21 % (0-12); NEUTROPHILS # (AUTO) 2.9 X 10^3 (1.8-7.8); NEUTROPHILS % (AUTO) 58 % (42-75); PLATELET COUNT 331 10^3/uL (130-400); RED CELL DISTRIBUTION WIDTH 13.6 % (10.0-14.5)
[2019-12-21 13:52] LABS: CALCIUM 9.1 MG/DL (8.5-10.1); CREATININE SERUM 1.64 MG/DL (0.60-1.30); POTASSIUM 4.4 MMOL/L (3.6-5.0)
[2019-12-29 06:13] LABS: CREATININE SERUM 1.47 MG/DL (0.60-1.30); POTASSIUM 4.5 MMOL/L (3.6-5.0)
[2019-12-29 06:14] LABS: ALBUMIN 4.3 GM/DL (3.2-4.5); BILIRUBIN,TOTAL 0.8 MG/DL (0.1-1.0); CALCIUM 8.8 MG/DL (8.5-10.1); TOTAL PROTEIN 7.7 GM/DL (6.4-8.2)
[2019-12-29 06:16] LABS: HEMATOCRIT 34 % (35-52); HEMOGLOBIN 11.7 G/DL (11.5-16.0); LYMPHOCYTES % (AUTO) 18 % (12-44); MEAN CORPUSCULAR HEMOGLOBIN 31 PG (25-34); MEAN CORPUSCULAR HGB CONC 34 G/DL (32-36); MEAN CORPUSCULAR VOLUME 91 FL (80-99); MEAN PLATELET VOLUME 9.3 FL (7.4-10.4); NEUTROPHILS % (AUTO) 67 % (42-75); PLATELET COUNT 316 10^3/uL (130-400); RED CELL DISTRIBUTION WIDTH 13.6 % (10.0-14.5); WHITE BLOOD COUNT 5.5 10^3/uL (4.3-11.0)
[2019-12-29 06:17] LABS: BASOPHILS % (AUTO) 0 % (0-10); EOSINOPHILS % (AUTO) 0 % (0-10); MONOCYTES # (AUTO) 0.8 X 10^3 (0.0-1.0); MONOCYTES % (AUTO) 15 % (0-12); NEUTROPHILS # (AUTO) 3.7 X 10^3 (1.8-7.8)
== END 2019-12-27 | disposition home or self-care (01) ==
LOC: ONC 13:24
PROVIDERS: ATTEND Internal Medicine Hematology & Oncology
DX: Z51.11 Encounter for antineoplastic chemotherapy (principal); C91.10 Chronic lymphocytic leukemia of B-cell type not having achieved remission; Z85.3 Personal history of malignant neoplasm of breast; F03.90 Unspecified dementia, unspecified severity, without behavioral disturbance, psychotic disturbance, mood disturbance, and anxiety; F41.9 Anxiety disorder, unspecified; I25.10 Atherosclerotic heart disease of native coronary artery without angina pectoris; J44.9 Chronic obstructive pulmonary disease, unspecified; I12.9 Hypertensive chronic kidney disease with stage 1 through stage 4 chronic kidney disease, or unspecified chronic kidney disease; N18.3 Chronic kidney disease, stage 3 (moderate); E78.00 Pure hypercholesterolemia, unspecified; E83.42 Hypomagnesemia; G25.81 Restless legs syndrome; Z90.12 Acquired absence of left breast and nipple; Z87.891 Personal history of nicotine dependence; Z79.899 Other long term (current) drug therapy
CPT/HCPCS: 36415; 80048; 80053; 83615; 84550; 85025; 96360; 96361; 96413; 96415; 99213; J9312

== ENCOUNTER → 2020-02-14 | Outpatient (CLI) | payer MEDICARE ==
[~2020-02-14] MED LIST changes: -ACETAMINOPHEN 500 MG TAB (TYLENOL) CANCER CTR PO PRN; +ASCO100024 PO; -ASCO10006 PO; +ASPI-1238 PO; -ASPI-983 PO; -NS IV 1000 ML (CANCER CTR) IV SCH; -diphenhydrAMINE 25 MG TAB (BENADRYL) CANCER CENTER PO SCH; -riTUXimab 1,000 MG in NS (IVPB) CANCER CENTER 233 ML IV SCH; -riTUXimab 500 MG, riTUXimab FOR IV INJ CONC 200 MG in NS (IVPB) CANCER CENTER ONLY 150 ML IV SCH
--- NOTE | 2020-02-14 15:54 | Diagnostic Imaging Report ---
INDICATION: Fall. TIME OF EXAM: 2:33 PM. FINDINGS: No displaced nasal bone fracture is identified. The maxillary sinuses appear clear. The frontal sinus and ethmoids appear clear. The sphenoid is clear. IMPRESSION: No acute abnormality is detected. Dictated by: Dictated on workstation # [id number]
== END ==
LOC: RAD 14:12
PROVIDERS: ATTEND Internal Medicine
DX: M95.0 Acquired deformity of nose (principal); W19.XXXA Unspecified fall, initial encounter
CPT/HCPCS: 70150

== ENCOUNTER → 2020-02-20 | Outpatient (CLI) | payer MEDICARE ==
--- NOTE | 2020-02-20 12:09 | Diagnostic Imaging Report ---
Indication: Shortness of breath. Time of exam: 11:23 AM Comparison is made with prior chest from 04/15/2019. Heart size is normal. The lungs are clear. The pulmonary vascularity is normal. No infiltrates are detected. No effusion or pneumothorax is identified. Impression: No acute cardiopulmonary processes detected. Dictated by: Dictated on workstation # [id number]
== END ==
LOC: RAD 11:09
PROVIDERS: ATTEND Nurse Practitioner Adult Health
DX: R06.02 Shortness of breath (principal); C91.10 Chronic lymphocytic leukemia of B-cell type not having achieved remission
CPT/HCPCS: 71046

== ENCOUNTER → 2020-03-15 | Outpatient (CLI) | payer MEDICARE ==
[~2020-03-15] MED LIST changes: -CALC-6 PO; +CALC1TAB84 PO
--- NOTE | 2020-03-15 11:21 | Diagnostic Imaging Report ---
PROCEDURE: CT chest, abdomen, and pelvis without contrast. TECHNIQUE: Multiple contiguous axial images were obtained through the chest, abdomen, and pelvis without the use of intravenous contrast. Auto Exposure Controls were utilized during the CT exam to meet ALARA standards for radiation dose reduction. INDICATION: Lymphocytic leukemia. Correlation is made with prior CT chest from 05/24/2019. CT CHEST: The previously noted prominent lymph nodes in the right axilla have resolved. Left axilla is unremarkable. In addition, prominent lymph nodes in the mediastinum have all resolved. No measurable lymphadenopathy is seen on today's exam. Hilar is unremarkable. There are coronary arterial calcifications. There is trace pericardial fluid. No pleural fluid is identified. There does appear to be some linear scarring or atelectasis in the right lower lobe and lingula. No parenchymal mass or nodule is seen. Minimal linear scarring in the left lower lobe is noted. Postoperative changes of left mastectomy are again noted. IMPRESSION: Overall improvement in right axillary and mediastinal lymphadenopathy when compared to the exam from 05/24/2019. No new abnormality is detected. No pulmonary parenchymal mass or nodule is detected. CT ABDOMEN AND PELVIS: No discrete liver mass is detected. There appear to be small stones layering within the gallbladder. No biliary ductal dilatation is seen. The pancreas and spleen are unremarkable. No adrenal mass is detected. No renal calculi or hydronephrosis is detected. Aorta is heavily calcified but nonaneurysmal. No central retroperitoneal or mesenteric lymphadenopathy is seen. Bowel loops are normal caliber. There is diverticulosis of the transverse, descending and sigmoid colon but no evidence of acute diverticulitis. The bladder is decompressed. The uterus is unremarkable. No free fluid or fluid collection is identified. No definite iliac or inguinal lymphadenopathy is seen. Bony structures are unremarkable. IMPRESSION: 1. Cholelithiasis. 2. Uncomplicated diverticulosis. 3. No evidence of abdominal or pelvic lymphadenopathy. Dictated by: Dictated on workstation # [id number]
== END ==
LOC: RAD 10:01
PROVIDERS: ATTEND Nurse Practitioner Adult Health
DX: Z01.89 Encounter for other specified special examinations (principal); C91.90 Lymphoid leukemia, unspecified not having achieved remission; K80.20 Calculus of gallbladder without cholecystitis without obstruction; K57.90 Diverticulosis of intestine, part unspecified, without perforation or abscess without bleeding
CPT/HCPCS: 71250; 74176

== ENCOUNTER 2020-03-20 14:19 | Outpatient (RCR) | payer MEDICARE ==
[2019-12-29 06:13] LABS: CREATININE SERUM 1.47 MG/DL (0.60-1.30); POTASSIUM 4.5 MMOL/L (3.6-5.0)
[2019-12-29 06:14] LABS: ALBUMIN 4.3 GM/DL (3.2-4.5); BILIRUBIN,TOTAL 0.8 MG/DL (0.1-1.0); CALCIUM 8.8 MG/DL (8.5-10.1); TOTAL PROTEIN 7.7 GM/DL (6.4-8.2)
[2019-12-29 06:16] LABS: HEMATOCRIT 34 % (35-52); HEMOGLOBIN 11.7 G/DL (11.5-16.0); LYMPHOCYTES % (AUTO) 18 % (12-44); MEAN CORPUSCULAR HEMOGLOBIN 31 PG (25-34); MEAN CORPUSCULAR HGB CONC 34 G/DL (32-36); MEAN CORPUSCULAR VOLUME 91 FL (80-99); MEAN PLATELET VOLUME 9.3 FL (7.4-10.4); NEUTROPHILS % (AUTO) 67 % (42-75); PLATELET COUNT 316 10^3/uL (130-400); WHITE BLOOD COUNT 5.5 10^3/uL (4.3-11.0)
[2019-12-29 06:17] LABS: BASOPHILS % (AUTO) 0 % (0-10); EOSINOPHILS % (AUTO) 0 % (0-10); MONOCYTES # (AUTO) 0.8 X 10^3 (0.0-1.0); MONOCYTES % (AUTO) 15 % (0-12); NEUTROPHILS # (AUTO) 3.7 X 10^3 (1.8-7.8)
[2020-01-04 11:45] LABS: BASOPHILS % (AUTO) 0 % (0-10); EOSINOPHILS % (AUTO) 0 % (0-10); HEMATOCRIT 32 % (35-52); HEMOGLOBIN 10.6 G/DL (11.5-16.0); LYMPHOCYTES % (AUTO) 21 % (12-44); MEAN CORPUSCULAR HEMOGLOBIN 31 PG (25-34); MEAN CORPUSCULAR HGB CONC 33 G/DL (32-36); MEAN CORPUSCULAR VOLUME 92 FL (80-99); MEAN PLATELET VOLUME 9.2 FL (7.4-10.4); MONOCYTES # (AUTO) 0.8 X 10^3 (0.0-1.0); MONOCYTES % (AUTO) 18 % (0-12); NEUTROPHILS # (AUTO) 2.9 X 10^3 (1.8-7.8); NEUTROPHILS % (AUTO) 61 % (42-75); PLATELET COUNT 263 10^3/uL (130-400); WHITE BLOOD COUNT 4.7 10^3/uL (4.3-11.0)
[2020-01-04 11:59] LABS: CREATININE SERUM 1.26 MG/DL (0.60-1.30); POTASSIUM 4.2 MMOL/L (3.6-5.0)
[2020-01-11 13:05] LABS: BASOPHILS % (AUTO) 0 % (0-10); EOSINOPHILS % (AUTO) 0 % (0-10); HEMATOCRIT 34 % (35-52); HEMOGLOBIN 11.1 G/DL (11.5-16.0); LYMPHOCYTES % (AUTO) 19 % (12-44); MEAN CORPUSCULAR HEMOGLOBIN 30 PG (25-34); MEAN CORPUSCULAR HGB CONC 33 G/DL (32-36); MEAN CORPUSCULAR VOLUME 92 FL (80-99); MONOCYTES % (AUTO) 19 % (0-12); NEUTROPHILS # (AUTO) 3.3 X 10^3 (1.8-7.8); NEUTROPHILS % (AUTO) 61 % (42-75); PLATELET COUNT 307 10^3/uL (130-400); WHITE BLOOD COUNT 5.3 10^3/uL (4.3-11.0)
[2020-01-11 13:27] LABS: CALCIUM 9.1 MG/DL (8.5-10.1); CREATININE SERUM 1.15 MG/DL (0.60-1.30)
[2020-01-18 10:23] LABS: BASOPHILS % (AUTO) 0 % (0-10); EOSINOPHILS % (AUTO) 0 % (0-10); HEMATOCRIT 34 % (35-52); HEMOGLOBIN 11.2 G/DL (11.5-16.0); LYMPHOCYTES % (AUTO) 20 % (12-44); MEAN CORPUSCULAR HEMOGLOBIN 30 PG (25-34); MEAN CORPUSCULAR HGB CONC 33 G/DL (32-36); MEAN CORPUSCULAR VOLUME 91 FL (80-99); MEAN PLATELET VOLUME 9.2 FL (7.4-10.4); MONOCYTES % (AUTO) 20 % (0-12); NEUTROPHILS # (AUTO) 3.1 X 10^3 (1.8-7.8); NEUTROPHILS % (AUTO) 60 % (42-75); PLATELET COUNT 315 10^3/uL (130-400); WHITE BLOOD COUNT 5.1 10^3/uL (4.3-11.0)
[2020-01-18 10:44] LABS: CALCIUM 9.2 MG/DL (8.5-10.1); CREATININE SERUM 1.43 MG/DL (0.60-1.30); POTASSIUM 4.5 MMOL/L (3.6-5.0)
[2020-01-25 10:04] LABS: BASOPHILS % (AUTO) 0 % (0-10); EOSINOPHILS % (AUTO) 0 % (0-10); HEMATOCRIT 34 % (35-52); HEMOGLOBIN 11.2 G/DL (11.5-16.0); LYMPHOCYTES % (AUTO) 21 % (12-44); MEAN CORPUSCULAR HEMOGLOBIN 30 PG (25-34); MEAN CORPUSCULAR HGB CONC 33 G/DL (32-36); MEAN CORPUSCULAR VOLUME 92 FL (80-99); MEAN PLATELET VOLUME 9.2 FL (7.4-10.4); MONOCYTES # (AUTO) 0.8 X 10^3 (0.0-1.0); MONOCYTES % (AUTO) 17 % (0-12); NEUTROPHILS % (AUTO) 62 % (42-75); PLATELET COUNT 291 10^3/uL (130-400); WHITE BLOOD COUNT 4.9 10^3/uL (4.3-11.0)
[2020-01-25 10:25] LABS: ALBUMIN 4.1 GM/DL (3.2-4.5); BILIRUBIN,TOTAL 0.6 MG/DL (0.1-1.0); CREATININE SERUM 1.39 MG/DL (0.60-1.30); POTASSIUM 4.4 MMOL/L (3.6-5.0); TOTAL PROTEIN 6.8 GM/DL (6.4-8.2)
[2020-02-01 13:48] LABS: BASOPHILS % (AUTO) 0 % (0-10); EOSINOPHILS % (AUTO) 0 % (0-10); HEMATOCRIT 31 % (35-52); HEMOGLOBIN 10.1 g/dL (11.5-16.0); LYMPHOCYTES # (AUTO) 0.8 10^3/uL (1.0-4.0); LYMPHOCYTES % (AUTO) 18 % (12-44); MEAN CORPUSCULAR HEMOGLOBIN 30 pg (25-34); MEAN CORPUSCULAR HGB CONC 33 g/dL (32-36); MEAN CORPUSCULAR VOLUME 93 fL (80-99); MEAN PLATELET VOLUME 9.2 fL (9.0-12.2); MONOCYTES # (AUTO) 0.7 10^3/uL (0.0-1.0); MONOCYTES % (AUTO) 16 % (0-12); NEUTROPHILS # (AUTO) 2.8 10^3/uL (1.8-7.8); NEUTROPHILS % (AUTO) 66 % (42-75); PLATELET COUNT 243 10^3/uL (130-400); WHITE BLOOD COUNT 4.3 10^3/uL (4.3-11.0)
[2020-02-01 14:08] LABS: CALCIUM 8.6 MG/DL (8.5-10.1); CREATININE SERUM 1.18 MG/DL (0.60-1.30); POTASSIUM 4.3 MMOL/L (3.6-5.0)
[2020-02-08 13:52] LABS: BASOPHILS % (AUTO) 0 % (0-10); EOSINOPHILS % (AUTO) 0 % (0-10); HEMATOCRIT 28 % (35-52); LYMPHOCYTES % (AUTO) 16 % (12-44); MEAN CORPUSCULAR HEMOGLOBIN 31 pg (25-34); MEAN CORPUSCULAR HGB CONC 33 g/dL (32-36); MEAN CORPUSCULAR VOLUME 95 fL (80-99); MEAN PLATELET VOLUME 9.3 fL (9.0-12.2); MONOCYTES # (AUTO) 1.1 10^3/uL (0.0-1.0); MONOCYTES % (AUTO) 16 % (0-12); NEUTROPHILS # (AUTO) 4.4 10^3/uL (1.8-7.8); NEUTROPHILS % (AUTO) 67 % (42-75); PLATELET COUNT 278 10^3/uL (130-400); WHITE BLOOD COUNT 6.5 10^3/uL (4.3-11.0)
[2020-02-08 14:33] LABS: CALCIUM 8.7 MG/DL (8.5-10.1); CREATININE SERUM 1.68 MG/DL (0.60-1.30); POTASSIUM 3.9 MMOL/L (3.6-5.0)
[2020-02-15 09:18] LABS: BASOPHILS % (AUTO) 0 % (0-10); EOSINOPHILS % (AUTO) 0 % (0-10); HEMATOCRIT 28 % (35-52); HEMOGLOBIN 9.1 g/dL (11.5-16.0); LYMPHOCYTES % (AUTO) 21 % (12-44); MEAN CORPUSCULAR HEMOGLOBIN 30 pg (25-34); MEAN CORPUSCULAR HGB CONC 32 g/dL (32-36); MEAN CORPUSCULAR VOLUME 95 fL (80-99); MEAN PLATELET VOLUME 9.3 fL (9.0-12.2); MONOCYTES # (AUTO) 0.7 10^3/uL (0.0-1.0); MONOCYTES % (AUTO) 15 % (0-12); NEUTROPHILS % (AUTO) 63 % (42-75); PLATELET COUNT 312 10^3/uL (130-400); WHITE BLOOD COUNT 4.8 10^3/uL (4.3-11.0)
[2020-02-15 09:40] LABS: CALCIUM 8.9 MG/DL (8.5-10.1); CREATININE SERUM 1.66 MG/DL (0.60-1.30); POTASSIUM 4.2 MMOL/L (3.6-5.0)
[2020-02-20 10:33] LABS: BASOPHILS % (AUTO) 0 % (0-10); EOSINOPHILS % (AUTO) 0 % (0-10); HEMATOCRIT 27 % (35-52); HEMOGLOBIN 8.7 g/dL (11.5-16.0); LYMPHOCYTES # (AUTO) 0.6 10^3/uL (1.0-4.0); LYMPHOCYTES % (AUTO) 16 % (12-44); MEAN CORPUSCULAR HEMOGLOBIN 30 pg (25-34); MEAN CORPUSCULAR HGB CONC 32 g/dL (32-36); MEAN CORPUSCULAR VOLUME 94 fL (80-99); MEAN PLATELET VOLUME 9.1 fL (9.0-12.2); MONOCYTES # (AUTO) 0.6 10^3/uL (0.0-1.0); MONOCYTES % (AUTO) 16 % (0-12); NEUTROPHILS # (AUTO) 2.5 10^3/uL (1.8-7.8); NEUTROPHILS % (AUTO) 67 % (42-75); PLATELET COUNT 276 10^3/uL (130-400); WHITE BLOOD COUNT 3.8 10^3/uL (4.3-11.0)
[2020-02-20 10:56] LABS: BILIRUBIN,TOTAL 0.6 MG/DL (0.1-1.0); CALCIUM 8.7 MG/DL (8.5-10.1); CREATININE SERUM 1.27 MG/DL (0.60-1.30); TOTAL PROTEIN 6.7 GM/DL (6.4-8.2)
[~2020-03-20 14:19] MED LIST changes: +ACETAMINOPHEN 500 MG TAB (TYLENOL) CANCER CTR PO PRN; +NS IV 1000 ML (CANCER CTR) IV SCH; +NS IV SCH; +RITUXIMAB ABBS IV SCH; +diphenhydrAMINE 25 MG TAB (BENADRYL) CANCER CENTER PO SCH; +riTUXimab 1,000 MG in NS (IVPB) CANCER CENTER 233 ML IV SCH
[2020-03-20 14:36] LABS: BASOPHILS % (AUTO) 0 % (0-10); EOSINOPHILS % (AUTO) 0 % (0-10); HEMATOCRIT 30 % (35-52); HEMOGLOBIN 9.5 g/dL (11.5-16.0); LYMPHOCYTES # (AUTO) 0.9 10^3/uL (1.0-4.0); LYMPHOCYTES % (AUTO) 19 % (12-44); MEAN CORPUSCULAR HEMOGLOBIN 29 pg (25-34); MEAN CORPUSCULAR HGB CONC 32 g/dL (32-36); MEAN CORPUSCULAR VOLUME 91 fL (80-99); MEAN PLATELET VOLUME 9.3 fL (9.0-12.2); MONOCYTES # (AUTO) 0.9 10^3/uL (0.0-1.0); MONOCYTES % (AUTO) 19 % (0-12); NEUTROPHILS # (AUTO) 2.9 10^3/uL (1.8-7.8); NEUTROPHILS % (AUTO) 62 % (42-75); PLATELET COUNT 322 10^3/uL (130-400); WHITE BLOOD COUNT 4.7 10^3/uL (4.3-11.0)
[2020-03-20 14:58] LABS: ALBUMIN 4.2 GM/DL (3.2-4.5); BILIRUBIN,TOTAL 0.6 MG/DL (0.1-1.0); CALCIUM 8.4 MG/DL (8.5-10.1); CREATININE SERUM 1.37 MG/DL (0.60-1.30); TOTAL PROTEIN 7.3 GM/DL (6.4-8.2)
== END 2020-03-27 | disposition home or self-care (01) ==
LOC: ONC 14:19
PROVIDERS: ATTEND Internal Medicine Hematology & Oncology
DX: Z51.11 Encounter for antineoplastic chemotherapy (principal); C91.10 Chronic lymphocytic leukemia of B-cell type not having achieved remission; F03.90 Unspecified dementia, unspecified severity, without behavioral disturbance, psychotic disturbance, mood disturbance, and anxiety; F41.9 Anxiety disorder, unspecified; I25.10 Atherosclerotic heart disease of native coronary artery without angina pectoris; I12.9 Hypertensive chronic kidney disease with stage 1 through stage 4 chronic kidney disease, or unspecified chronic kidney disease; N18.30 Chronic kidney disease, stage 3 unspecified; E78.00 Pure hypercholesterolemia, unspecified; I82.621 Acute embolism and thrombosis of deep veins of right upper extremity; E83.42 Hypomagnesemia; E78.5 Hyperlipidemia, unspecified; K21.9 Gastro-esophageal reflux disease without esophagitis; G25.81 Restless legs syndrome; Z90.12 Acquired absence of left breast and nipple; Z85.3 Personal history of malignant neoplasm of breast; Z87.891 Personal history of nicotine dependence; Z79.899 Other long term (current) drug therapy; Z92.21 Personal history of antineoplastic chemotherapy
CPT/HCPCS: 80053; 83615; 85025; 96413; G0463; 36415; 80048; 96360; 96361; 99213

== ENCOUNTER 2020-04-18 12:50 | Outpatient (RCR) | payer MEDICARE ==
[~2020-04-18 12:50] MED LIST changes: -ACETAMINOPHEN 500 MG TAB (TYLENOL) CANCER CTR PO PRN; -NS IV 1000 ML (CANCER CTR) IV SCH; -NS IV SCH; -RITUXIMAB ABBS IV SCH; -diphenhydrAMINE 25 MG TAB (BENADRYL) CANCER CENTER PO SCH; -riTUXimab 1,000 MG in NS (IVPB) CANCER CENTER 233 ML IV SCH
[2020-04-18 13:13] LABS: BASOPHILS % (AUTO) 0 % (0-10); EOSINOPHILS % (AUTO) 0 % (0-10); HEMATOCRIT 30 % (35-52); HEMOGLOBIN 9.2 g/dL (11.5-16.0); LYMPHOCYTES # (AUTO) 0.8 10^3/uL (1.0-4.0); LYMPHOCYTES % (AUTO) 15 % (12-44); MEAN CORPUSCULAR HEMOGLOBIN 27 pg (25-34); MEAN CORPUSCULAR HGB CONC 31 g/dL (32-36); MEAN CORPUSCULAR VOLUME 90 fL (80-99); MEAN PLATELET VOLUME 9.6 fL (9.0-12.2); MONOCYTES # (AUTO) 0.8 10^3/uL (0.0-1.0); MONOCYTES % (AUTO) 16 % (0-12); NEUTROPHILS # (AUTO) 3.6 10^3/uL (1.8-7.8); NEUTROPHILS % (AUTO) 69 % (42-75); PLATELET COUNT 247 10^3/uL (130-400); WHITE BLOOD COUNT 5.2 10^3/uL (4.3-11.0)
[2020-04-18 13:30] LABS: ALBUMIN 4.1 GM/DL (3.2-4.5); BILIRUBIN,TOTAL 0.7 MG/DL (0.1-1.0); CALCIUM 8.6 MG/DL (8.5-10.1); CREATININE SERUM 1.38 MG/DL (0.60-1.30); POTASSIUM 4.7 MMOL/L (3.6-5.0); TOTAL PROTEIN 6.9 GM/DL (6.4-8.2)
[2020-04-24] MEDS ORDERED: TRAM-42 PO (13:58)
[2020-04-24] MEDS ORDERED: METH4TAB11 PO (13:58)
== END 2020-05-14 15:43 | disposition home or self-care (01) ==
LOC: ONC 12:50
PROVIDERS: ATTEND Internal Medicine Hematology & Oncology
DX: Z51.11 Encounter for antineoplastic chemotherapy (principal); C91.10 Chronic lymphocytic leukemia of B-cell type not having achieved remission; F03.90 Unspecified dementia, unspecified severity, without behavioral disturbance, psychotic disturbance, mood disturbance, and anxiety; F41.9 Anxiety disorder, unspecified; I25.10 Atherosclerotic heart disease of native coronary artery without angina pectoris; I12.9 Hypertensive chronic kidney disease with stage 1 through stage 4 chronic kidney disease, or unspecified chronic kidney disease; E78.00 Pure hypercholesterolemia, unspecified; I82.621 Acute embolism and thrombosis of deep veins of right upper extremity; E83.42 Hypomagnesemia; E78.5 Hyperlipidemia, unspecified; K21.9 Gastro-esophageal reflux disease without esophagitis; G25.81 Restless legs syndrome; N18.30 Chronic kidney disease, stage 3 unspecified; Z85.3 Personal history of malignant neoplasm of breast; Z87.891 Personal history of nicotine dependence; Z79.899 Other long term (current) drug therapy; Z92.21 Personal history of antineoplastic chemotherapy; Z90.12 Acquired absence of left breast and nipple
CPT/HCPCS: 80053; 83615; 85025; G0463; 99213

== ENCOUNTER 2020-04-24 11:36 | Emergency (ER) | payer MEDICARE ==
[~2020-04-24] VITALS: Ht 158 cm; Wt 63.0 kg
[2020-04-24] MEDS ORDERED: KETOROLAC 30 MG/ML VIAL IVP ONE (12:15)
--- NOTE | 2020-04-24 12:19 | ED Upper Extremity ---
General Stated Complaint: L WRIST PAIN Source: patient Exam Limitations: no limitations History of Present Illness Date Seen by Provider: Apr 24, 2020 Time Seen by Provider: 12:00 Initial Comments To ER with swelling to the left forearm and wrist for 3 to 4 days. No known injury. No fevers or chills. History of similar on the right arm and she was diagnosed with a blood clot at that time. Onset: other Severity: moderate Pain/Injury Location: left forearm Method of Injury: unknown Modifying Factors: Worse With Movement Allergies and Home Medications Allergies Coded Allergies: No Known Drug Allergies (Verified , 05/03/16) Home Medications Acyclovir 400 Mg Tablet, 400 MG PO BID, (Reported) Albuterol Sulfate 2.5 Mg/0.5 Ml Vial.neb, 2.5 MG INH Q6H PRN for SHORTNESS OF BREATH, (Reported) Aspirin 81 Mg Tablet.dr, 81 MG PO DAILY, (Reported) Atenolol 25 Mg Tablet, 25 MG PO DAILY, (Reported) Atorvastatin Calcium 40 Mg Tablet, 40 MG PO HS, (Reported) Calcium Carbonate/Vitamin D3 1 Each Tablet, 1 EACH PO BID, (Reported) Cetirizine HCl 10 Mg Tablet, 10 MG PO DAILY, (Reported) Citalopram Hydrobromide 20 Mg Tablet, 20 MG PO DAILY, (Reported) Clopidogrel Bisulfate 75 Mg Tablet, 75 MG PO DAILY, (Reported) Diphenhydramine HCl 25 Mg Capsule, 25 MG PO HS PRN for INSOMNIA, (Reported) Donepezil HCl 10 Mg Tablet, 10 MG PO HS, (Reported) Fluticasone Propionate 9.9 Ml [place].susp, 1 SPRAY NS DAILY PRN for CONGESTION, (Reported) 1 SPRAY EACH NARE DAILY Gabapentin 100 Mg Capsule, 100 MG PO Q6H PRN for pain Prescribed by: MISAEL CORLEY on 11/22/19 1527 Guaifenesin 100 Mg/5 Ml Liquid, 20 ML PO Q8H PRN for COUGH, (Reported) Linaclotide 72 Mcg Capsule, 72 MCG PO DAILY PRN for CONSTIPATION-1ST LINE, (Reported) Loperamide HCl 2 Mg Tablet, 4 MG PO PRN PRN for DIARRHEA, (Reported) Losartan/Hydrochlorothiazide 1 Each Tablet, 1 EACH PO DAILY, (Reported) Magnesium Oxide 250 Mg Tablet, 250 MG PO BID, (Reported) [place]-3 Fatty Acids/Fish Oil 1 Each Capsule.dr, 2 EACH PO BID, (Reported) Omeprazole 40 Mg Capsule.dr, 40 MG PO DAILY, (Reported) Ondansetron HCl 8 Mg Tablet, 8 MG PO Q8H PRN for NAUSEA/VOMITING-1ST LINE, (Reported) Peg 400/Hypromellose/Glycerin 15 Ml Drops, 2 DROP OU PRN PRN for DRY EYES, (Reported) Potassium Gluconate 500 Mg Tablet, 500 MG PO HS, (Reported) Prednisone 20 Mg Tab, 40 MG PO DAILY Prescribed by: MISAEL CORLEY on 11/22/19 1527 Patient Home Medication List Home Medication List Reviewed: Yes Review of Systems Constitutional: see HPI EENTM: see HPI Respiratory: no symptoms reported Cardiovascular: no symptoms reported Genitourinary: no symptoms reported Musculoskeletal: see HPI Psychiatric/Neurological: No Symptoms Reported Past Gxdmukt-Stmjnl-Sxkpee Hx Patient Social History Alcohol Beverage of Choice: Beer Type Used: Cigarettes Former Smoker, Quit: Feb 10, 2014 Recent Hopitalizations: No Immunizations Up To Date Tetanus Booster (TDap): More than 5yrs Date of Pneumonia Vaccine: Mar 11, 2015 Date of Influenza Vaccine: Feb 16, 2019 Seasonal Allergies Seasonal Allergies: Yes Past Medical History Surgeries: Yes (LEFT BREAST/COLONOSCOPY-POLYP REMVED, PREV CEA) Breast, Coronary Stent, Tonsillectomy, Vascular Surgery Respiratory: Yes Pneumonia, Sleep Apnea Currently Using CPAP: Yes Currently Using BIPAP: No Cardiac: Yes Hypertension, Peripheral Vascular Neurological: Yes Reproductive Disorders: No Female Reproductive Disorders: Denies Sexually Transmitted Disease: No Genitourinary: No Gastrointestinal: Yes (DIARRHEA (NERVOUS BOWEL)) Gastroesophageal Reflux Musculoskeletal: Yes (ARTHRITIS KNEE'S) Arthritis Endocrine: No HEENT: Yes Cataract Loss of Vision: Bilateral Hearing Impairment: Hard of Hearing Cancer: Yes Leukemia, Breast Psychosocial: Yes Anxiety, Depression Integumentary: No Blood Disorders: No Adverse Reaction/Blood Tranf: No Family Medical History FHx: gastric ulcer 19 FATHER Stroke or transient ischemic attack in mother Physical Exam Vital Signs Vital Signs - First Documented 04/24/20 11:55 Temp 37.2 Pulse 75 Resp 20 B/P (MAP) 82/50 (61) Pulse Ox 100 Capillary Refill : Height, Weight, BMI Height: 5'3.00" Weight: 197lbs. 0.0oz. [id number]; 32.00 BMI Method:Estimated General Appearance: WD/WN, no apparent distress HEENT: PERRL/EOMI, normal ENT inspection Respiratory: no respiratory distress, no accessory muscle use Shoulder: normal inspection, non-tender Elbow/Forearm: Left, swelling (There is some swelling to the left forearm and wrist. She has pain with supination and pronation at the elbow and wrist. She has pain with flexion at the elbow and pain with movement at the wrist.) Hand: normal inspection, non-tender Neurologic/Psychiatric: alert, normal mood/affect, oriented x 3 Skin: normal color, warm/dry Progress/Results/Core Measures Results/Orders Lab Results Laboratory Tests Test 04/24/20 12:12 Range/Units White Blood Count 9.1 4.3-11.0 10^3/uL Red Blood Count 3.45 L 3.80-5.11 10^6/uL Hemoglobin 9.4 L 11.5-16.0 g/dL Hematocrit 30 L 35-52 % Mean Corpuscular Volume 87 80-99 fL Mean Corpuscular Hemoglobin 27 25-34 pg Mean Corpuscular Hemoglobin Concent 31 L 32-36 g/dL Red Cell Distribution Width 15.3 H 10.0-14.5 % Platelet Count 239 130-400 10^3/uL Mean Platelet Volume 9.9 9.0-12.2 fL Immature Granulocyte % (Auto) 0 % Neutrophils (%) (Auto) 72 42-75 % Lymphocytes (%) (Auto) 8 L 12-44 % Monocytes (%) (Auto) 20 H 0-12 % Eosinophils (%) (Auto) 0 0-10 % Basophils (%) (Auto) 0 0-10 % Neutrophils # (Auto) 6.6 1.8-7.8 10^3/uL Lymphocytes # (Auto) 0.7 L 1.0-4.0 10^3/uL Monocytes # (Auto) 1.8 H 0.0-1.0 10^3/uL Eosinophils # (Auto) 0.0 0.0-0.3 10^3/uL Basophils # (Auto) 0.0 0.0-0.1 10^3/uL Immature Granulocyte # (Auto) 0.0 0.0-0.1 10^3/uL Neutrophils % (Manual) 74 % Lymphocytes % (Manual) 9 % Monocytes % (Manual) 17 % Anisocytosis SLIGHT Microcytosis SLIGHT Erythrocyte Sedimentation Rate 62 H 0-30 MM/HR Sodium Level 136 135-145 MMOL/L Potassium Level 3.9 3.6-5.0 MMOL/L Chloride Level 101 98-107 MMOL/L Carbon Dioxide Level 23 21-32 MMOL/L Anion Gap 12 5-14 MMOL/L Blood Urea Nitrogen 13 7-18 MG/DL Creatinine 1.50 H 0.60-1.30 MG/DL Estimat Glomerular Filtration Rate 33 BUN/Creatinine Ratio 9 Glucose Level 131 H 70-105 MG/DL Uric Acid 6.4 2.6-7.2 MG/DL Calcium Level 8.9 8.5-10.1 MG/DL Corrected Calcium 8.8 8.5-10.1 MG/DL Total Bilirubin 1.0 0.1-1.0 MG/DL Aspartate Amino Transf (AST/SGOT) 15 5-34 U/L Alanine Aminotransferase (ALT/SGPT) 9 0-55 U/L Alkaline Phosphatase 86 40-136 U/L C-Reactive Protein High Sensitivity 8.57 H 0.00-0.50 MG/DL Total Protein 7.3 6.4-8.2 GM/DL Albumin 4.1 3.2-4.5 GM/DL My Orders Orders - HELEN PATIÑO APRN Hand, Left, 3 Views (04/24/20 11:52) Forearm, Left, 2 Views (04/24/20 11:56) Uric Acid (04/24/20 12:05) Cbc With Automated Diff (04/24/20 12:05) Comprehensive Metabolic Panel (04/24/20 12:05) Hs C Reactive Protein (04/24/20 12:05) Erythrocyte Sedimentation Rate (04/24/20 12:05) Us Venous Upper Ext Lt (04/24/20 12:05) Ed Iv/Invasive Line Start (04/24/20 12:05) Ketorolac Injection (Toradol Injection) (04/24/20 12:15) Tramadol Tablet (Ultram Tablet) (04/24/20 12:15) Manual Differential (04/24/20 12:12) Medications Given in ED Current Medications Medications Dose Ordered Sig/Iris Route Start Time Stop Time Status Last Admin Dose Admin Ketorolac Tromethamine 15 mg ONCE ONCE IVP 04/24/20 12:15 04/24/20 12:16 DC 04/24/20 12:21 15 MG Tramadol HCl 50 mg ONCE ONCE PO 04/24/20 12:15 04/24/20 12:16 DC 04/24/20 12:22 50 MG Vital Signs/I&O 04/24/20 11:55 Temp 37.2 Pulse 75 Resp 20 B/P (MAP) 82/50 (61) Pulse Ox 100 Departure Impression Primary Impression: Inflammatory arthropathy Disposition: HOME, SELF-CARE Condition: Stable Departure-Patient Inst. Decision time for Depature: 13:56 Referrals: CLIVE CARMONA MD (PCP/Family) Primary Care Physician Patient Instructions: NO INSTRUCTIONS GIVEN Add. Discharge Instructions: 1. Medication as directed 2. Pain medication as directed. Follow-up with Dr. Carmona this week for recheck and return to ER for any worsening. Scripts Tramadol HCl (Ultram) 50 Mg Tablet 50 MG PO Q6H PRN for PAIN-MODERATE (5-7), #10 TAB Prov: HELEN PATIÑO WAIST PLEATER 04/24/20 Methylprednisolone (Methylprednisolone Dose Pack) 4 Mg Tablet 4 MG PO UD for 6 Days, #21 TAB FOLLOW DOSE PACK INSTRUCTIONS Prov: HELEN PATIÑO WAIST PLEATER 04/24/20 HELEN PATIÑO APRN Apr 24, 2020 12:19
[2020-04-24 12:22] LABS: BASOPHILS % (AUTO) 0 % (0-10); EOSINOPHILS % (AUTO) 0 % (0-10); HEMATOCRIT 30 % (35-52); HEMOGLOBIN 9.4 g/dL (11.5-16.0); LYMPHOCYTES # (AUTO) 0.7 10^3/uL (1.0-4.0); LYMPHOCYTES % (AUTO) 8 % (12-44); MEAN CORPUSCULAR HEMOGLOBIN 27 pg (25-34); MEAN CORPUSCULAR HGB CONC 31 g/dL (32-36); MEAN CORPUSCULAR VOLUME 87 fL (80-99); MEAN PLATELET VOLUME 9.9 fL (9.0-12.2); MONOCYTES # (AUTO) 1.8 10^3/uL (0.0-1.0); MONOCYTES % (AUTO) 20 % (0-12); NEUTROPHILS # (AUTO) 6.6 10^3/uL (1.8-7.8); NEUTROPHILS % (AUTO) 72 % (42-75); PLATELET COUNT 239 10^3/uL (130-400); WHITE BLOOD COUNT 9.1 10^3/uL (4.3-11.0)
--- NOTE | 2020-04-24 12:26 | Diagnostic Imaging Report ---
INDICATION: Pain and swelling COMPARISON: Radiograph of the left hand from the same date as well as radiographs of the hand dated 04/06/2017 TECHNIQUE: 2 radiographs of the left forearm dated 04/24/2020. FINDINGS: Chronic tiny ulnar styloid avulsion fractures again identified. No acute fracture or dislocation. No destructive osseous process. No suspicious radiopaque foreign body. IMPRESSION: No acute osseous abnormality. Dictated by: Dictated on workstation # [id number]
--- NOTE | 2020-04-24 12:30 | Diagnostic Imaging Report ---
INDICATION: Pain. COMPARISON: 04/06/2017 TECHNIQUE: 3 radiographs left hand dated 04/24/2020. FINDINGS: Stable tiny chronic ulnar styloid fracture. Calcifications are noted overlying the expected location of the triangular fibrocartilage, stable from prior exam. No acute fracture or dislocation. No destructive osseous process. Carpal alignment is well-maintained. Scattered osseous degenerative changes are present, greatest involving the 1st CMC joint where they are moderate in severity with joint space narrowing and osteophyte formation. No suspicious radiopaque foreign body. IMPRESSION: No acute osseous abnormalities with scattered osseous degenerative changes, greatest involving the 1st CMC joint. Calcifications overlying the expected location of the triangular fibrocartilage which likely relates to chondrocalcinosis which can be seen with CPPD deposition disease. Dictated by: Dictated on workstation # [id number]
[2020-04-24 12:34] LABS: ALBUMIN 4.1 GM/DL (3.2-4.5); POTASSIUM 3.9 MMOL/L (3.6-5.0)
[2020-04-24 12:35] LABS: CALCIUM 8.9 MG/DL (8.5-10.1)
[2020-04-24 12:37] LABS: TOTAL PROTEIN 7.3 GM/DL (6.4-8.2)
[2020-04-24 12:40] LABS: CREATININE SERUM 1.5 MG/DL (0.60-1.30)
[2020-04-24 12:43] LABS: URIC ACID 6.4 MG/DL (2.6-7.2)
[2020-04-24 12:56] LABS: ANISOCYTOSIS SLIGHT; ERYTHROCYTE SEDIMENTATION RATE 62 MM/HR (0-30); LYMPHOCYTES % (MANUAL) 9 %; MICROCYTOSIS SLIGHT; MONOCYTES % (MANUAL) 17 %; NEUTROPHILS % (MANUAL) 74 %
--- NOTE | 2020-04-24 13:26 | Diagnostic Imaging Report ---
PROCEDURE: US venous upper extremity left. TECHNIQUE: Multiple realtime grayscale images were obtained of left upper extremity in various projections. Additional spectral analysis and color Doppler duplex images were also obtained. INDICATION: Pain and swelling The previous right upper extremity venous Doppler exam of 12/19/2019 noted thrombus formation of the brachial vein. On this exam however there is generally good blood flow and compressibility of the deep venous system of the left upper study. There is no sign of a deep venous stenosis on the left. IMPRESSION: There is no evidence for deep venous thrombosis of the left upper extremity. Dictated by: Dictated on workstation # [id number]
[2020-04-24] MEDS ORDERED: METH4TAB11 PO (13:58)
[2020-04-24] MEDS ORDERED: TRAM-42 PO (13:58)
[2020-04-24] MEDS ORDERED: methylPREDNISolone 40 MG/ML (Solu-MEDROL) VIAL IV ONE (14:00)
[2020-04-24 14:16] VITALS: BP 85/54
== END 2020-04-24 14:17 | disposition home or self-care (01) ==
LOC: EDUNIT# 11:36 → ER 11:38
DX: M12.822 Other specific arthropathies, not elsewhere classified, left elbow (principal); M12.832 Other specific arthropathies, not elsewhere classified, left wrist; I10 Essential (primary) hypertension; K21.9 Gastro-esophageal reflux disease without esophagitis; Z95.5 Presence of coronary angioplasty implant and graft; Z85.3 Personal history of malignant neoplasm of breast; Z85.6 Personal history of leukemia; Z87.891 Personal history of nicotine dependence; Z79.82 Long term (current) use of aspirin; Z79.52 Long term (current) use of systemic steroids
CPT/HCPCS: 36415; 73090; 73130; 80053; 84550; 85007; 85027; 85652; 86141

== ENCOUNTER → 2020-05-24 | Outpatient (CLI) | payer MEDICARE ==
[~2020-05-24] MED LIST changes: +METH4TAB11 PO; +TRAM-42 PO
[2020-05-24 14:17] LABS: BILIRUBIN,TOTAL 0.6 MG/DL (0.1-1.0); CALCIUM 8.9 MG/DL (8.5-10.1); CREATININE SERUM 1.42 MG/DL (0.60-1.30); POTASSIUM 4.4 MMOL/L (3.6-5.0)
== END ==
LOC: LAB 13:36
PROVIDERS: ATTEND Internal Medicine Cardiovascular Disease
DX: E78.2 Mixed hyperlipidemia (principal)
CPT/HCPCS: 36415; 80053; 80061

== ENCOUNTER → 2020-07-03 | Outpatient (CLI) | payer MEDICARE ==
--- NOTE | 2020-07-04 10:08 | Diagnostic Imaging Report ---
INDICATION: Routine screening. COMPARISON: 06/02/2019 and 06/01/2018. TECHNIQUE: Unilateral right 2D and 3D screening mammography was performed with CAD. FINDINGS: Scattered fibroglandular densities are identified in the right breast. Benign calcifications in the right breast are noted. No mass or malignant appearing microcalcifications are seen. The right axilla is unremarkable. IMPRESSION: No mammographic features suspicious for malignancy are identified. ACR BI-RADS Category 2: Benign findings. Result letter will be mailed to the patient. Note: At least 10% of breast cancer is not imaged by mammography. Dictated by: Dictated on workstation # [id number]
== END ==
LOC: RAD 14:50
PROVIDERS: ATTEND Internal Medicine
DX: Z12.31 Encounter for screening mammogram for malignant neoplasm of breast (principal)
CPT/HCPCS: 77063

== ENCOUNTER 2020-08-07 14:15 | Outpatient (RCR) | payer MEDICARE ==
[2020-05-16 13:37] LABS: BASOPHILS % (AUTO) 0 % (0-10); EOSINOPHILS % (AUTO) 0 % (0-10); HEMATOCRIT 30 % (35-52); HEMOGLOBIN 9.3 g/dL (11.5-16.0); LYMPHOCYTES # (AUTO) 0.7 10^3/uL (1.0-4.0); LYMPHOCYTES % (AUTO) 22 % (12-44); MEAN CORPUSCULAR HEMOGLOBIN 27 pg (25-34); MEAN CORPUSCULAR HGB CONC 31 g/dL (32-36); MEAN CORPUSCULAR VOLUME 87 fL (80-99); MEAN PLATELET VOLUME 9.6 fL (9.0-12.2); MONOCYTES # (AUTO) 0.7 10^3/uL (0.0-1.0); MONOCYTES % (AUTO) 21 % (0-12); NEUTROPHILS # (AUTO) 1.9 10^3/uL (1.8-7.8); NEUTROPHILS % (AUTO) 57 % (42-75); PLATELET COUNT 280 10^3/uL (130-400); WHITE BLOOD COUNT 3.4 10^3/uL (4.3-11.0)
[2020-05-16 14:00] LABS: ALBUMIN 3.9 GM/DL (3.2-4.5); BILIRUBIN,TOTAL 0.4 MG/DL (0.1-1.0); CALCIUM 8.9 MG/DL (8.5-10.1); CREATININE SERUM 1.5 MG/DL (0.60-1.30); POTASSIUM 4.5 MMOL/L (3.6-5.0); TOTAL PROTEIN 7.1 GM/DL (6.4-8.2)
[2020-06-13 15:21] LABS: BASOPHILS % (AUTO) 0 % (0-10); EOSINOPHILS % (AUTO) 0 % (0-10); HEMATOCRIT 30 % (35-52); HEMOGLOBIN 9.3 g/dL (11.5-16.0); LYMPHOCYTES # (AUTO) 0.8 10^3/uL (1.0-4.0); LYMPHOCYTES % (AUTO) 19 % (12-44); MEAN CORPUSCULAR HEMOGLOBIN 26 pg (25-34); MEAN CORPUSCULAR HGB CONC 31 g/dL (32-36); MEAN CORPUSCULAR VOLUME 86 fL (80-99); MEAN PLATELET VOLUME 9.6 fL (9.0-12.2); MONOCYTES % (AUTO) 23 % (0-12); NEUTROPHILS # (AUTO) 2.6 10^3/uL (1.8-7.8); NEUTROPHILS % (AUTO) 58 % (42-75); PLATELET COUNT 285 10^3/uL (130-400); WHITE BLOOD COUNT 4.4 10^3/uL (4.3-11.0)
[2020-06-13 15:36] LABS: ALBUMIN 3.9 GM/DL (3.2-4.5); BILIRUBIN,TOTAL 0.7 MG/DL (0.1-1.0); CALCIUM 8.7 MG/DL (8.5-10.1); CREATININE SERUM 1.35 MG/DL (0.60-1.30); POTASSIUM 4.4 MMOL/L (3.6-5.0); TOTAL PROTEIN 6.6 GM/DL (6.4-8.2)
[2020-07-10 13:00] LABS: BASOPHILS % (AUTO) 0 % (0-10); EOSINOPHILS % (AUTO) 0 % (0-10); HEMATOCRIT 30 % (35-52); HEMOGLOBIN 9.3 g/dL (11.5-16.0); LYMPHOCYTES # (AUTO) 0.9 10^3/uL (1.0-4.0); LYMPHOCYTES % (AUTO) 15 % (12-44); MEAN CORPUSCULAR HEMOGLOBIN 26 pg (25-34); MEAN CORPUSCULAR HGB CONC 31 g/dL (32-36); MEAN CORPUSCULAR VOLUME 86 fL (80-99); MEAN PLATELET VOLUME 9.8 fL (9.0-12.2); MONOCYTES # (AUTO) 0.9 10^3/uL (0.0-1.0); MONOCYTES % (AUTO) 15 % (0-12); NEUTROPHILS # (AUTO) 4.2 10^3/uL (1.8-7.8); NEUTROPHILS % (AUTO) 69 % (42-75); PLATELET COUNT 217 10^3/uL (130-400)
[2020-07-10 13:19] LABS: BILIRUBIN,TOTAL 0.5 MG/DL (0.1-1.0); CALCIUM 8.6 MG/DL (8.5-10.1); CREATININE SERUM 1.58 MG/DL (0.60-1.30); POTASSIUM 4.5 MMOL/L (3.6-5.0); TOTAL PROTEIN 6.4 GM/DL (6.4-8.2)
[2020-08-07 14:28] LABS: BASOPHILS % (AUTO) 0 % (0-10); EOSINOPHILS % (AUTO) 0 % (0-10); HEMATOCRIT 29 % (35-52); LYMPHOCYTES # (AUTO) 0.9 10^3/uL (1.0-4.0); LYMPHOCYTES % (AUTO) 16 % (12-44); MEAN CORPUSCULAR HEMOGLOBIN 27 pg (25-34); MEAN CORPUSCULAR HGB CONC 32 g/dL (32-36); MEAN CORPUSCULAR VOLUME 86 fL (80-99); MEAN PLATELET VOLUME 9.3 fL (9.0-12.2); MONOCYTES # (AUTO) 1.2 10^3/uL (0.0-1.0); MONOCYTES % (AUTO) 21 % (0-12); NEUTROPHILS # (AUTO) 3.5 10^3/uL (1.8-7.8); NEUTROPHILS % (AUTO) 63 % (42-75); PLATELET COUNT 231 10^3/uL (130-400); WHITE BLOOD COUNT 5.6 10^3/uL (4.3-11.0)
[2020-08-07 14:48] LABS: BILIRUBIN,TOTAL 0.4 MG/DL (0.1-1.0); CALCIUM 8.7 MG/DL (8.5-10.1); CREATININE SERUM 1.79 MG/DL (0.60-1.30); POTASSIUM 4.1 MMOL/L (3.6-5.0); TOTAL PROTEIN 6.5 GM/DL (6.4-8.2)
== END 2020-08-14 | disposition home or self-care (01) ==
LOC: ONC 14:15
PROVIDERS: ATTEND Internal Medicine Hematology & Oncology
DX: Z51.11 Encounter for antineoplastic chemotherapy (principal); C91.10 Chronic lymphocytic leukemia of B-cell type not having achieved remission; F03.90 Unspecified dementia, unspecified severity, without behavioral disturbance, psychotic disturbance, mood disturbance, and anxiety; F41.9 Anxiety disorder, unspecified; I25.10 Atherosclerotic heart disease of native coronary artery without angina pectoris; I12.9 Hypertensive chronic kidney disease with stage 1 through stage 4 chronic kidney disease, or unspecified chronic kidney disease; C50.519 Malignant neoplasm of lower-outer quadrant of unspecified female breast; E78.00 Pure hypercholesterolemia, unspecified; I82.621 Acute embolism and thrombosis of deep veins of right upper extremity; N18.30 Chronic kidney disease, stage 3 unspecified; E83.42 Hypomagnesemia; E78.5 Hyperlipidemia, unspecified; K21.9 Gastro-esophageal reflux disease without esophagitis; G25.81 Restless legs syndrome; Z90.12 Acquired absence of left breast and nipple; Z85.3 Personal history of malignant neoplasm of breast; Z87.891 Personal history of nicotine dependence; Z79.899 Other long term (current) drug therapy; Z92.21 Personal history of antineoplastic chemotherapy
CPT/HCPCS: 80053; 85025; G0463; 83615; 99213

== ENCOUNTER 2020-09-04 15:21 | Inpatient (IN) | payer MEDICARE ==
[~2020-09-04] VITALS: Ht 160 cm; Wt 82.0 kg
[~2020-09-04 15:21] MED LIST changes: -ACYC400T PO; +ACYC400T21 PO; +GUAI400T83 PO; -GUAI400T85 PO
[2020-09-04] MEDS ORDERED: LACTATED RINGERS 1,000 ML IV ONE (16:15)
--- NOTE | 2020-09-04 16:24 | Diagnostic Imaging Report ---
INDICATION: Injury to right hip AP pelvis and AP and oblique views of the right hip are obtained. There is acute right femoral neck fracture in the subcapital region, with some impaction. There is mild angulation. There are no other acute findings. There is mild degenerative change of the SI joints and lower lumbar spine IMPRESSION: Acute subcapital fracture right femoral neck, with mild impaction and slight angulation. Dictated by: Dictated on workstation # [id number]
--- NOTE | 2020-09-04 17:24 | ED Fall/Injury ---
General Chief Complaint: Trauma-Non Activation Stated Complaint: FELL IN PARKING LOT HIP Nursing Triage Note: SEE TRIAGE NOTE Source: patient, family, old records, other (Dr. Last) Exam Limitations: no limitations History of Present Illness Date Seen by Provider: Sep 04, 2020 Time Seen by Provider: 15:29 Initial Comments This is 79-year-old woman presents to the emergency room from the [facility] where she fell in the parking lot injuring her right hip. Dr. Last gave report and stated that she just did not seem herself today in the clinic and seemed unkept compared to her usual. She describes having difficulty with her left knee pain worsening recently contributing to problems with ambulation, hydration, and going to the bathroom. Patient otherwise denies feeling ill recently. She does have mild hip tenderness on palpation and no pain with rotation of the hip. Patient states she fell backward onto her right hip. She did lightly bump her head but denies any pain or injury to the head or neck. She has chronic pain in the left knee and acute pain in the right hip. Patient has history of CLL. Allergies and Home Medications Allergies Coded Allergies: No Known Drug Allergies (Verified , 05/03/16) Home Medications Acyclovir 400 Mg Tablet, 400 MG PO BID, (Reported) Albuterol Sulfate 2.5 Mg/0.5 Ml Vial.neb, 2.5 MG INH Q6H PRN for SHORTNESS OF BREATH, (Reported) Aspirin 81 Mg Tablet.dr, 81 MG PO DAILY, (Reported) Atenolol 25 Mg Tablet, 25 MG PO DAILY, (Reported) Atorvastatin Calcium 40 Mg Tablet, 40 MG PO HS, (Reported) Calcium Carbonate/Vitamin D3 1 Each Tablet, 1 EACH PO BID, (Reported) Cetirizine HCl 10 Mg Tablet, 10 MG PO DAILY, (Reported) Citalopram Hydrobromide 20 Mg Tablet, 20 MG PO DAILY, (Reported) Clopidogrel Bisulfate 75 Mg Tablet, 75 MG PO DAILY, (Reported) Diphenhydramine HCl 25 Mg Capsule, 25 MG PO HS PRN for INSOMNIA, (Reported) Donepezil HCl 10 Mg Tablet, 10 MG PO HS, (Reported) Fluticasone Propionate 9.9 Ml [place].susp, 1 SPRAY NS DAILY PRN for CONGESTION, (Reported) 1 SPRAY EACH NARE DAILY Gabapentin 100 Mg Capsule, 100 MG PO Q6H PRN for pain Prescribed by: MISAEL CORLEY on 11/22/19 1527 Guaifenesin 100 Mg/5 Ml Liquid, 20 ML PO Q8H PRN for COUGH, (Reported) Linaclotide 72 Mcg Capsule, 72 MCG PO DAILY PRN for CONSTIPATION-1ST LINE, (Reported) Loperamide HCl 2 Mg Tablet, 4 MG PO PRN PRN for DIARRHEA, (Reported) Losartan/Hydrochlorothiazide 1 Each Tablet, 1 EACH PO DAILY, (Reported) Magnesium Oxide 250 Mg Tablet, 250 MG PO BID, (Reported) Methylprednisolone 4 Mg Tablet, 4 MG PO UD FOLLOW DOSE PACK INSTRUCTIONS Prescribed by: HELEN PATIÑO on 04/24/20 1358 [place]-3 Fatty Acids/Fish Oil 1 Each Capsule.dr, 2 EACH PO BID, (Reported) Omeprazole 40 Mg Capsule.dr, 40 MG PO DAILY, (Reported) Ondansetron HCl 8 Mg Tablet, 8 MG PO Q8H PRN for NAUSEA/VOMITING-1ST LINE, (Reported) Peg 400/Hypromellose/Glycerin 15 Ml Drops, 2 DROP OU PRN PRN for DRY EYES, (Reported) Potassium Gluconate 500 Mg Tablet, 500 MG PO HS, (Reported) Prednisone 20 Mg Tab, 40 MG PO DAILY Prescribed by: MISAEL CORLEY on 11/22/19 1527 Tramadol HCl 50 Mg Tablet, 50 MG PO Q6H PRN for PAIN-MODERATE (5-7) Prescribed by: HELEN PATIÑO on 04/24/20 1358 Patient Home Medication List Home Medication List Reviewed: Yes Review of Systems Review of Systems Constitutional: see HPI Eyes: No Symptoms Reported Ears, Nose, Mouth, Throat: no symptoms reported Respiratory: no symptoms reported Cardiovascular: no symptoms reported Gastrointestinal: no symptoms reported Genitourinary: no symptoms reported : No Musculoskeletal: see HPI Skin: no symptoms reported Psychiatric/Neurological: See HPI Past Uvcwsoz-Ntunzn-Crdxhj Hx Past Med/Social Hx: Reviewed Nursing Past Med/Soc Hx Patient Social History Alcohol Beverage of Choice: Beer Type Used: Cigarettes Former Smoker, Quit: Feb 10, 2014 2nd Hand Smoke Exposure: No Recent Infectious Disease Expo: No Recent Hopitalizations: No Immunizations Up To Date Tetanus Booster (TDap): More than 5yrs Date of Pneumonia Vaccine: Mar 11, 2015 Date of Influenza Vaccine: Feb 17, 2020 Seasonal Allergies Seasonal Allergies: Yes Past Medical History Surgeries: Yes (LEFT BREAST/COLONOSCOPY-POLYP REMVED, PREV CEA) Breast, Coronary Stent, Tonsillectomy, Vascular Surgery Respiratory: Yes Pneumonia, Sleep Apnea Currently Using CPAP: Yes Currently Using BIPAP: No Cardiac: Yes Coronary Artery Disease, Hypertension, Peripheral Vascular Neurological: Yes Dementia (Reports memory difficulty) Reproductive Disorders: No Female Reproductive Disorders: Denies Sexually Transmitted Disease: No Genitourinary: No Gastrointestinal: Yes (DIARRHEA (NERVOUS BOWEL)) Gastroesophageal Reflux Musculoskeletal: Yes (ARTHRITIS KNEE'S) Arthritis Endocrine: No HEENT: Yes Cataract Loss of Vision: Bilateral Hearing Impairment: Hard of Hearing Cancer: Yes Leukemia, Breast Psychosocial: Yes Anxiety, Depression Integumentary: No Blood Disorders: No Adverse Reaction/Blood Tranf: No Family Medical History FHx: gastric ulcer 19 FATHER Stroke or transient ischemic attack in mother Physical Exam Vital Signs Vital Signs - First Documented 09/04/20 15:30 Temp 36.5 Pulse 124 Resp 16 B/P (MAP) 133/65 (87) Pulse Ox 94 O2 Delivery Room Air Capillary Refill : Less Than 3 Seconds Height, Weight, BMI Height: 5'3.00" Weight: 197lbs. 0.0oz. 89.145080nt; 32.00 BMI Method:Estimated General Appearance: WD/WN, no apparent distress HEENT: PERRL/EOMI, normal ENT inspection Neck: non-tender, normal inspection Cardiovascular: regular rate, rhythm, no edema, no murmur Respiratory: lungs clear, normal breath sounds, no respiratory distress Gastrointestinal: normal bowel sounds, non tender, soft Extremities: normal inspection, no pedal edema Neurologic/Psychiatric: incident response engineer II-XII nml as tested, no motor/sensory deficits, alert, normal mood/affect, oriented x 3 Skin: normal color, warm/dry Yoly Coma Score Best Eye Response: (4) Open Spontaneously Best Verbal Response: (5) Oriented Best Motor Response: (6) Obeys Commands [place] Total: 15 Progress/Results/Core Measures Results/Orders My Orders Orders - MARK MICHELLE MD Ua Culture If Indicated (09/04/20 15:29) Ed Iv/Invasive Line Start (09/04/20 15:29) Pelvis With Right Hip 2-3views (09/04/20 15:29) Lactated Ringers (Lr 1000 Ml Iv Solution (09/04/20 16:15) Chest 1 View, Ap/Pa Only (09/04/20 17:08) Knee, Left, 3 Views (09/04/20 17:08) General/Regular (09/04/20 Dinner) Medications Given in ED Current Medications Medications Dose Ordered Sig/Iris Route Start Time Stop Time Status Last Admin Dose Admin Lactated Ringer's 1,000 ml @ 0 mls/hr Q0M ONCE IV 09/04/20 16:15 09/04/20 16:16 DC 09/04/20 16:31 1,000 MLS/HR Vital Signs/I&O 09/04/20 15:30 Temp 36.5 Pulse 124 Resp 16 B/P (MAP) 133/65 (87) Pulse Ox 94 O2 Delivery Room Air Blood Pressure Mean: 87 Progress Progress Note : Time: 18:08 Progress Note Patient was seen and examined. Labs were reviewed and compared with prior. She has acute on chronic renal impairment. A liter of IV normal saline was initiated. Hip and pelvic fracture revealed an impacted right femoral neck fracture. Dr. Manning was consulted. Patient was admitted. I discussed CODE STATUS and she requested to remain full code. After admission, there was reconsideration of her comments about bumping her head. It is unclear to me if she is still on aspirin and Plavix. Also, she admitted to memory problems and therefore her reliability as a historian is in question. After discussion with Dr. Dawn, we elected to obtain a CT of the head. CT was ordered and the fourth floor nurse and ophthalmic medical technologist were notified. Patient required no pain medication. Dr. Manning requested x-rays of the left knee which were also obtained in the ER and are unremarkable except for arthritic changes. Diagnostic Imaging Diagonstic Imaging: Xray Plain Films/CT/US/NM/MRI: pelvis, hip Comments Hip and pelvis x-rays viewed by me and report reviewed. See report below: NAME: RADHA NOVOA [facility] REC#: [id number] PT STATUS: REG ER : 1940 PHYSICIAN: MARK MICHELLE MD ADMIT DATE: 09/04/20/ER Signed Date of Exam:09/04/20 PELVIS WITH RIGHT HIP 2-3VIEWS INDICATION: Injury to right hip AP pelvis and AP and oblique views of the right hip are obtained. There is acute right femoral neck fracture in the subcapital region, with some impaction. There is mild angulation. There are no other acute findings. There is mild degenerative change of the SI joints and lower lumbar spine IMPRESSION: Acute subcapital fracture right femoral neck, with mild impaction and slight angulation. Dictated by: Dictated on workstation # [id number] Dict: 09/04/20 1618 Trans: 09/04/201700 [facility] [id number] Interpreted by: TAVO VIDES MD Electronically signed by: TAVO VIDES MD 09/04/201700 Diagonstic Imaging: Xray Plain Films/CT/US/NM/MRI: chest Comments NAME: MARY NOVOALEY [place] [facility] REC#: [id number] PT STATUS: ADM IN : 1940 PHYSICIAN: MARK MICHELLE MD ADMIT DATE: 09/04/20 Signed Date of Exam:09/04/20 CHEST 1 VIEW, AP/PA ONLY INDICATION: Preop. TIME OF EXAM: 05:28 p.m. COMPARISON: Comparison is made with prior chest from 02/20/2020. FINDINGS: Heart appears enlarged. Lungs are clear. No infiltrates are seen. There is no effusion or pneumothorax. IMPRESSION: No acute cardiopulmonary process is detected. Dictated by: Dictated on workstation # [id number] Dict: 09/04/20 1734 Trans: 09/04/201749 [facility] [id number] Interpreted by: RANDY DANIEL MD Electronically signed by: RANDY DANIEL MD 09/04/201749 Diagonstic Imaging: Xray Plain Films/CT/US/NM/MRI: knee Comments NAME: BRIGHTRADHA K [facility] REC#: [id number] PT STATUS: ADM IN : 1940 PHYSICIAN: MARK MICHELLE MD ADMIT DATE: 09/04/20 Draft Date of Exam:09/04/20 KNEE, LEFT, 3 VIEWS INDICATION: Pain FINDINGS: 3 view knee shows tricompartmental osteoarthritis with no fracture, dislocation or evidence for joint effusion. There is cartilaginous and meniscal calcifications lateral greater than medial, chronic. IMPRESSION: Chronic degenerative changes but no fracture or acute appearing bony pathology. Dictated on workstation # [id number] Dict: 09/04/201733 Trans: 09/04/20 1752 [facility] [id number] Interpreted by: TRES VILLEGAS Diagonstic Imaging: CT Plain Films/CT/US/NM/MRI: head Comments NAME: RADHA NOVOA [facility] REC#: [id number] PT STATUS: ADM IN : 1940 PHYSICIAN: MARK MICHELLE MD ADMIT DATE: 09/04/20 Signed Date of Exam:09/04/20 CT HEAD WO PROCEDURE: CT head without contrast. TECHNIQUE: Multiple contiguous axial images were obtained through the brain without the use of intravenous contrast. Auto Exposure Controls were utilized during the CT exam to meet ALARA standards for radiation dose reduction. INDICATION: Fall CORRELATED with brain MRI performed 04/27/2018. Chronic areas of encephalomalacia in the left posterior parietal and occipital lobes stable. Some periventricular white matter hypodensity has increased when compared to the prior which may be progressive chronic small vessel disease or acuity indeterminate lacunar infarcts. There was no evidence for sulcal effacement. No findings of cortical edema. There is no hydrocephalus and there is no hemorrhage. No mass effect found. The basilar cisterns are patent. There is no sulcal effacement. There is no evidence for an elevation of the intracerebral pressures. There are no abnormal extra-axial fluid collections. IMPRESSION: Chronic area of encephalomalacia, stable. Progressive subcortical and periventricular white matter hypodensities may reflect progressive chronic small vessel disease or the interval development of acuity indeterminate lacunar infarcts. No findings of cortical edema, hemorrhage, hydrocephalus or elevated pressures. Dictated by: Dictated on workstation # [id number] Dict: 09/04/202040 Trans: 09/04/202137 [facility] [id number] Interpreted by: TRES VILLEGAS Electronically signed by: TRES VILLEGAS 09/04/202137 Departure Communication (Admissions) Time/Spoke to Admitting Phy: 17:10 Dr. Dawn Time/Spoke to Consulting Phy: 17:05 Dr. Manning Impression Primary Impression: Closed right hip fracture Qualified Codes: S72.001A - Fracture of unspecified part of neck of right femur, initial encounter for closed fracture Additional Impressions: Acute renal failure superimposed on chronic kidney disease Qualified Codes: N17.9 - Acute kidney failure, unspecified; N18.9 - Chronic kidney disease, unspecified Fall on same level Qualified Codes: W18.30XA - Fall on same level, unspecified, initial encounter Left knee pain Qualified Codes: M25.562 - Pain in left knee; G89.29 - Other chronic pain Disposition: 09 ADMITTED INPATIENT Condition: Stable Admissions Decision to Admit Reason: Admit from ER (General) Decision to Admit/Date: Sep 04, 2020 Time/Decision to Admit Time: 16:55 Departure-Patient Inst. Referrals: CLIVE NEVAREZ MD (PCP/Family) Primary Care Physician MARK MICHELLE MD Sep 04, 2020 17:24
--- NOTE | 2020-09-04 17:36 | Diagnostic Imaging Report ---
INDICATION: Preop. TIME OF EXAM: 05:28 p.m. COMPARISON: Comparison is made with prior chest from 02/20/2020. FINDINGS: Heart appears enlarged. Lungs are clear. No infiltrates are seen. There is no effusion or pneumothorax. IMPRESSION: No acute cardiopulmonary process is detected. Dictated by: Dictated on workstation # [id number]
--- NOTE | 2020-09-04 17:52 | Diagnostic Imaging Report ---
INDICATION: Pain FINDINGS: 3 view knee shows tricompartmental osteoarthritis with no fracture, dislocation or evidence for joint effusion. There is cartilaginous and meniscal calcifications lateral greater than medial, chronic. IMPRESSION: Chronic degenerative changes but no fracture or acute appearing bony pathology. Dictated by: Dictated on workstation # [id number]
[2020-09-04 18:15] VITALS: BP 134/66
[2020-09-04] MEDS ORDERED: ONDANSETRON 4 MG/2 ML (SDV) Z0FRAN IV PRN ×2 (18:15→19:15)
[2020-09-04] MEDS ORDERED: CATHETER FLUSH 10 ML SYR IV PRN (18:15)
[2020-09-04] MEDS ORDERED: HYDROcodone/APAP 5 MG/325 MG (LORTAB) TAB PO PRN (18:15)
[2020-09-04 18:57] LABS: BILIRUBIN,URINE 1+ (NEGATIVE); CLARITY,URINE CLEAR; COLOR,URINE YELLOW; GLUCOSE, URINE (UA) NEGATIVE (NEGATIVE); KETONES,URINE NEGATIVE (NEGATIVE); LEUKOCYTE ESTERASE ,URINE NEGATIVE (NEGATIVE); NITRITE,URINE NEGATIVE (NEGATIVE); PROTEIN,URINE TRACE (NEGATIVE)
[2020-09-04 19:11] LABS: BACTERIA,URINE NEGATIVE /HPF
[2020-09-04] MEDS ORDERED: polyethylene glycoL POWDER 17 GM (MIRALAX) PACK PO PRN (19:15)
[2020-09-04] MEDS ORDERED: MELATONIN 3 MG TABLET PO PRN (19:15)
[2020-09-04] MEDS ORDERED: ANTACID SUSP 30 ML UDC (MYLANTA) PO PRN (19:15)
[2020-09-04] MEDS ORDERED: ONDANSETRON 4 MG (ZOFRAN) ORAL DISSOLVE TAB PO PRN (19:15)
[2020-09-04] MEDS ORDERED: BISACODYL 10 MG SUPP (DULCOLAX) PR PRN (19:15)
[2020-09-04] MEDS ORDERED: ACETAMINOPHEN 325 MG TABLET PO PRN (19:15)
--- NOTE | 2020-09-04 19:50 | CONSULTATION REPORT ---
DATE OF SERVICE: INPATIENT CONSULTATION REASON FOR CONSULTATION: Right hip fracture. HISTORY OF PRESENT ILLNESS: The patient is a 79-year-old female, who fell in the [facility] parking lot today. She was found to have a slightly displaced right femoral neck fracture. She reports that she has been having left knee pain as well, was having difficulty with hydration and ambulation and because of this, she fell. Radiographs reveal a mildly displaced right femoral neck fracture. Radiographs of the left knee revealed degenerative changes of the medial compartment without acute changes. PAST MEDICAL HISTORY: Significant breast cancer, CLL, and peripheral vascular disease. MEDICATIONS: Listed in the chart and noted. ALLERGIES: No known drug allergies. PHYSICAL EXAMINATION: The right hip was tender to palpation. She has pain with internal and external rotation of the hip. Pulses are symmetric. She has intact dorsiflexion and plantarflexion of the toes. Left knee demonstrates slight effusion. There is no erythema or warmth. IMPRESSION: Mildly displaced right femoral neck fracture with left knee osteoarthritis. PLAN: Right hip bipolar replacement with left knee injection. We discussed the risks, benefits, options, ramifications and recovery. She understands and wishes to proceed. Job ID: [id number] DocumentID: [id number] Dictated Date: 09/04/2020 18:25:25 Front Desk Admin Date: 09/04/2020 19:49:04 Dictated By: JACKIE AL MD
[2020-09-04] MEDS: DOCUSATE SODIUM 100 MG (COLACE) CAP PO SCH (19:53)
[2020-09-04] MEDS: NS IV 1000 ML 1,000 ML IV SCH (19:55)
[2020-09-04] MEDS: SENNOSIDES 8.6 MG (SENOKOT) TAB PO SCH (19:55)
[2020-09-04 20:00] VITALS: BP 153/65
--- NOTE | 2020-09-04 21:04 | Diagnostic Imaging Report ---
PROCEDURE: CT head without contrast. TECHNIQUE: Multiple contiguous axial images were obtained through the brain without the use of intravenous contrast. Auto Exposure Controls were utilized during the CT exam to meet ALARA standards for radiation dose reduction. INDICATION: Fall CORRELATED with brain MRI performed 04/27/2018. Chronic areas of encephalomalacia in the left posterior parietal and occipital lobes stable. Some periventricular white matter hypodensity has increased when compared to the prior which may be progressive chronic small vessel disease or acuity indeterminate lacunar infarcts. There was no evidence for sulcal effacement. No findings of cortical edema. There is no hydrocephalus and there is no hemorrhage. No mass effect found. The basilar cisterns are patent. There is no sulcal effacement. There is no evidence for an elevation of the intracerebral pressures. There are no abnormal extra-axial fluid collections. IMPRESSION: Chronic area of encephalomalacia, stable. Progressive subcortical and periventricular white matter hypodensities may reflect progressive chronic small vessel disease or the interval development of acuity indeterminate lacunar infarcts. No findings of cortical edema, hemorrhage, hydrocephalus or elevated pressures. Dictated by: Dictated on workstation # [id number]
[2020-09-05] VITALS (13 sets, daily range): BP systolic 101–149; BP diastolic 40–82
[2020-09-05] MEDS: NS IV 1000 ML 1,000 ML IV SCH ×4 (04:40→20:00)
[2020-09-05 05:36] LABS: BASOPHILS % (AUTO) 0 % (0-10); EOSINOPHILS % (AUTO) 1 % (0-10); HEMATOCRIT 25 % (35-52); HEMOGLOBIN 7.6 g/dL (11.5-16.0); LYMPHOCYTES # (AUTO) 0.5 10^3/uL (1.0-4.0); LYMPHOCYTES % (AUTO) 9 % (12-44); MEAN CORPUSCULAR HEMOGLOBIN 27 pg (25-34); MEAN CORPUSCULAR HGB CONC 31 g/dL (32-36); MEAN CORPUSCULAR VOLUME 88 fL (80-99); MEAN PLATELET VOLUME 9.7 fL (9.0-12.2); MONOCYTES # (AUTO) 0.8 10^3/uL (0.0-1.0); MONOCYTES % (AUTO) 14 % (0-12); NEUTROPHILS # (AUTO) 4.3 10^3/uL (1.8-7.8); NEUTROPHILS % (AUTO) 76 % (42-75); PLATELET COUNT 178 10^3/uL (130-400); WHITE BLOOD COUNT 5.7 10^3/uL (4.3-11.0)
[2020-09-05 05:56] LABS: CALCIUM 7.3 MG/DL (8.5-10.1); CREATININE SERUM 2.52 MG/DL (0.60-1.30); POTASSIUM 3.7 MMOL/L (3.6-5.0)
[2020-09-05] MEDS ORDERED: fentaNYL INJ 100 MCG/2 ML AMP ONE (06:58)
[2020-09-05] MEDS ORDERED: LACTATED RINGERS 1,000 ML IV PRN (07:00)
[2020-09-05] MEDS ORDERED: BUPIVACAINE 0.5% 30 ML (SENSORCAINE) VIAL ONE (07:19)
[2020-09-05] MEDS ORDERED: BUPIVACAINE 0.25% 30 ML (SENSORCAINE) VIAL ONE (07:24)
[2020-09-05] MEDS ORDERED: methylPREDNISolone 40 MG/ML (DEPO MEDROL) VIAL ONE (07:25)
--- NOTE | 2020-09-05 07:27 | Progress Note-Pre Operative ---
Pre-Operative Progress Note H&P Reviewed The H&P was reviewed, patient examined and no changes noted. Date Seen by Provider: Sep 05, 2020 Time Seen by Provider: : Date H&P Reviewed: Sep 05, 2020 Time H&P Reviewed: : Pre-Operative Diagnosis: right femoral neck fracture and left knee primary osteoarthritis JACKIE AL MD Sep 05, 2020 07:27
--- NOTE | 2020-09-05 07:28 | Progress Note-Post Operative ---
Post-Operative Progess Note Surgeon (s)/Angiography Technologist (s) Surgeon JACKIE AL MD Angiography Technologist: Servando Ritter Pre-Operative Diagnosis right femoral neck fracture and left knee primary osteoarthritis Post-Operative Diagnosis right femoral neck fracture and left knee primary osteoarthritis Procedure & Operative Findings Date of Procedure 09/05/20 Procedure Performed/Findings right hip bipolar replacement and left knee intra articular injection Anesthesia Type GETA Estimated Blood Loss Estimated blood loss (mL): 100 ml Specimens/Packing Specimens Removed femoral head Packing: none JACKIE AL MD Sep 05, 2020 07:28
[2020-09-05] MEDS ORDERED: ONDANSETRON 4 MG/2 ML (SDV) Z0FRAN ONE (08:07)
[2020-09-05] MEDS ORDERED: ROCURONIUM 10 MG/ML 5 ML SYRINGE IV ONE (08:07)
[2020-09-05] MEDS ORDERED: proPOfol 200 MG/20 ML (DIPRIVAN) VIAL IV ONE (08:07)
[2020-09-05] MEDS ORDERED: SEVOFLURANE (ULTANE) 15 ML INHAL SOLN ONE ×5 (08:07→09:56)
[2020-09-05] MEDS ORDERED: LIDOCAINE PF 2% 5 ML (XYLOCAINE) VIAL ONE (08:07)
[2020-09-05] MEDS ORDERED: NS IV 500 ML 500 ML IV SCH (08:30)
[2020-09-05] MEDS: DOCUSATE SODIUM 100 MG (COLACE) CAP PO SCH ×2 (08:36→19:50)
[2020-09-05] MEDS: SENNOSIDES 8.6 MG (SENOKOT) TAB PO SCH ×2 (08:36→19:50)
[2020-09-05] MEDS ORDERED: ceFAZolin INJECTION 1,000 MG VIAL IV ONE (09:00)
[2020-09-05] MEDS ORDERED: ceFAZolin 2 GM IV Premixed 50 ML IV NR (09:00)
[2020-09-05] MEDS ORDERED: SUCCINYLCHOLINE INJ 100 MG/5 ML SYR/VIAL ONE (09:15)
[2020-09-05] MEDS ORDERED: ONDANSETRON 4 MG/2 ML (SDV) Z0FRAN IVP PRN (10:00)
[2020-09-05] MEDS ORDERED: MEPERIDINE (DEMEROL) INJ 50 MG/ML IVP ONE (10:00)
[2020-09-05] MEDS ORDERED: morphine INJ 10 MG/ML 1ML (SYR OR VIAL) IVP ONE (10:00)
--- NOTE | 2020-09-05 10:05 | Anesthesia-General Post-Op ---
General Patient Condition Mental Status/LOC: Same as Preop Cardiovascular: Satisfactory Nausea/Vomiting: Absent Respiratory: Satisfactory Pain: Controlled Complications: Absent Post Op Complications Complications None Follow Up Care/Instructions Patient Instructions None needed. Anesthesia/Patient Condition Patient Condition Patient is doing well, no complaints, stable vital signs, no apparent adverse anesthesia problems. No complications reported per nursing. GINGER LLANES CRNA Sep 05, 2020 10:05
[2020-09-05] MEDS ORDERED: MONT10TA32 PO (12:39)
[2020-09-05] MEDS ORDERED: RIVA20TA PO (12:39)
[2020-09-05] MEDS ORDERED: POTA99TA17 PO (12:39)
[2020-09-05] MEDS ORDERED: FEXO-46 PO (12:39)
[2020-09-05] MEDS ORDERED: ACYC-112 PO (12:39)
[2020-09-05] MEDS ORDERED: OMG1KC PO (12:39)
[2020-09-05] MEDS ORDERED: PRED5DRO3 OU (12:39)
[2020-09-05] MEDS ORDERED: PANT40TA52 PO (12:39)
[2020-09-05] MEDS ORDERED: ASPI-1238 PO (12:39)
[2020-09-05] MEDS ORDERED: FLUC100T6 PO (12:39)
[2020-09-05] MEDS ORDERED: FLUT1DIS26 IH (12:39)
[2020-09-05] MEDS ORDERED: SULF1TAB35 PO (12:39)
[2020-09-05] MEDS ORDERED: CITA20TA9 PO (12:39)
[2020-09-05] MEDS ORDERED: MAGN400T39 PO (12:39)
[2020-09-05] MEDS ORDERED: LIPA1CAP70 PO (12:39)
[2020-09-05] MEDS ORDERED: ACHD5005 PO (12:39)
[2020-09-05] MEDS ORDERED: CALC600T91 PO (12:39)
[2020-09-05] MEDS ORDERED: VENE100T PO (12:39)
--- NOTE | 2020-09-05 12:39 | History & Physical-Hospitalist ---
History of Present Illness HPI/Chief Complaint Paola Amaral is a 79 year old female with PMH CLL, anemia of chronic disease, CKD stage 4, osteoarthritis, HTN, HLD, COPD, PVD, dementia, carotid stenosis, who presented after a ground level fall. [facility] Last and upon leaving she fell in the parking lot. She reports that she had been having issues with her left knee. She has a walker but does not use it. She was not using any assistive devices at the time of her fall. She says she lost her footing and ended up on the ground. She reports that she was in her normal state of health prior to the fall. She denies fevers, chills, chest pain, palpitations, shortness of breath, cough, abdominal pain, nausea, vomiting, diarrhea, dysuria. Source: patient Exam Limitations: no limitations Date Seen 09/05/20 Time Seen by a Provider: 12:00 Attending Physician Lo Conrad MD PCP Elver Carmona MD Referring Physician Date of Admission Sep 04, 2020 at 17:20 Home Medications & Allergies Home Medications Reviewed patient Home Medication Reconciliation performed by pharmacy medication reconciliations i&c technician and/or nursing. Patients Allergies have been reviewed. Allergies Allergies Coded Allergies No Known Drug Allergies (Asqwkazr68/24/16) Patient Social History Tobacco Use?: No Smoking Status: Former Smoker Use of E-Cig and/or Vaping dev: Yes Substance use?: No Alcohol Use?: Yes Alcohol Frequency: Once in a while Pt stated abuse/neglect: No Immunizations Up To Date Influenza Vaccine Up-to-Date: Yes; Up-to-Date Tetanus Booster (TDap): Unknown Hepatitis A: No Hepatitis B: No TB Skin Test: Negative Date of Pneumonia Vaccine: Mar 11, 2015 Current Status status: No status: No Do you have an Advance Directi: No Communicates: Verbally Primary Language: Czech Preferred Spoken Language: Czech Is interpretation needed?: No Sensory deficits: Hearing impairment Past Medical History CLL Anemia of chronic disease CKD 4 Osteoarthritis HTN HLD COPD PVD Dementia Family Medical History Family Hx: Noncontributory Review of Systems Constitutional: no symptoms reported EENTM: no symptoms reported Respiratory: no symptoms reported Cardiovascular: no symptoms reported Gastrointestinal: no symptoms reported Genitourinary: no symptoms reported Musculoskeletal: joint pain Skin: no symptoms reported Psychiatric/Neurological: No Symptoms Reported Physical Exam Physical Exam Vital Signs Vital Signs - First Documented 09/04/20 09/04/20 15:30 23:30 Temp 36.5 Pulse 124 Resp 16 B/P (MAP) 133/65 (87) Pulse Ox 94 O2 Delivery Room Air O2 Flow Rate 1.00 Capillary Refill : Less Than 3 Seconds Height, Weight, BMI Height: 5'3.00" Weight: 197lbs. 0.0oz. 89.594786sk; 32.03 BMI Method:Estimated General Appearance: No Apparent Distress, Obese HEENT: PERRL/EOMI, Pharynx Normal Neck: Normal Inspection, Supple Respiratory: Lungs Clear, Normal Breath Sounds, No Respiratory Distress Cardiovascular: Regular Rate, Rhythm, No Murmur Gastrointestinal: Normal Bowel Sounds, Non Tender, Soft Extremity: Normal Inspection, Non Tender, Pedal Edema Neurologic/Psychiatric: Alert, Oriented x3, No Motor/Sensory Deficits, Normal Mood/Affect Skin: Normal Color, Warm/Dry Results Results/Procedures Labs Laboratory Tests 09/05/20 05:19 Patient resulted labs reviewed. Imaging: Reviewed Imaging Report Assessment/Plan Admission Diagnosis Hip fracture Admission Status: Inpatient Order (span 2 midnights) Reason for Inpatient Admission: Hip fracture requiring surgical repair Assessment and Plan Closed right hip fracture Ground level fall Left knee osteoarthritis Orthopedic surgery consutled, performed surgery 09/05 Performed right hip repair and left knee steroid injection Pain regimen ordered Bowel regimen ordered Incentive spirometry SCDs in place Hold Xarelto, resume if hemoglobin stable Lovenox for DVT prophylaxis PT/OT Anemia of chronic disease Hgb 7.6 on arrival Repeat H/H this afternoon Transfuse for Hgb <7 CKD stage 4 Cr 2.5, appears to be at baseline Continue to monitor CLL Obesity Clinically significant, no acute management needs HTN HLD COPD PVD Dementia Continue home meds DVT prophylaxis: Lovenox Diagnosis/Problems Diagnosis/Problems (1) Closed right hip fracture Status: Acute Qualifiers: Encounter type: initial encounter Qualified Codes: S72.001A - Fracture of unspecified part of neck of right femur, initial encounter for closed fracture (2) Fall on same level Status: Acute Qualifiers: Encounter type: initial encounter Qualified Codes: W18.30XA - Fall on same level, unspecified, initial encounter (3) Left knee pain Status: Acute Qualifiers: Chronicity: chronic Qualified Codes: M25.562 - Pain in left knee; G89.29 - Other chronic pain (4) Acute renal failure superimposed on chronic kidney disease Status: Acute Qualifiers: Acute renal failure type: unspecified Chronic kidney disease stage: unspecified stage Qualified Codes: N17.9 - Acute kidney failure, unspecified; N18.9 - Chronic kidney disease, unspecified (5) Anemia of chronic disease Status: Acute LO CONRAD MD Sep 05, 2020 12:39
--- NOTE | 2020-09-05 13:25 | Diagnostic Imaging Report ---
HISTORY: Postoperative right hip replacement. TECHNIQUE: Single frontal view of the right hip. COMPARISON: 09/04/2020 FINDINGS: There is a right hip hemiarthroplasty. Alignment appears normal. No immediate hardware complication is seen. There is soft tissue air laterally and skin gabrielle are partially seen. No unexpected foreign body is seen. IMPRESSION: 1. Right hip arthroplasty without immediate hardware complication seen. Dictated by: Dictated on workstation # [id number]
--- NOTE | 2020-09-05 14:22 | OPERATIVE REPORT ---
DATE OF SERVICE: 09/05/2020 PREOPERATIVE DIAGNOSES: 1. Right displaced femoral neck fracture. 2. Left knee primary osteoarthritis. PROCEDURES: 1. Right hip bipolar replacement. 2. Left knee intraarticular injection. SURGEON: Audi Al MD RN ENTEROSTOMAL: Servando Ritter, who assisted throughout the procedure and closed the incision. ANESTHESIA: General endotracheal by Zev Nugent CRNA. ESTIMATED BLOOD LOSS: 100 mL. DRAINS: None. COMPLICATIONS: None. POSTOPERATIVE PLAN: Routine hip protocol with weightbearing as tolerated. The patient was transferred to the recovery room awake and in stable condition. STATEMENT OF MEDICAL NECESSITY: The patient is a 79-year-old female, who fell yesterday after leaving a doctor visit here at the hospital and was found to have a mildly displaced right femoral neck fracture. In addition, she complained of left knee arthritis with limited ambulation because of the knee and because of this, the patient elected to proceed with intra-articular injection while under anesthesia. She elected to proceed with right hip bipolar replacement in order to try to maintain her independent lifestyle. DESCRIPTION OF PROCEDURE: After risks and benefits of procedure were discussed and questions were answered, an informed consent was signed and placed on chart. The operative sites were confirmed in the preoperative holding area initialed by the surgeon. The patient was then transferred to the operating room and after adequate levels of general endotracheal anesthetic were obtained, a timeout was called, confirming the operative sites. The left knee was then injected with 2 mL of Marcaine and 80 mg of Depo-Medrol. The patient was then carefully placed in the left lateral decubitus position, being careful to place an axillary roll and pad all bony prominences. The right hip and lower extremity were prepped and draped in the usual sterile fashion. Standard anterolateral approach was utilized. The iliotibial band was incised in line with the incision. The abductor tendon was released leaving 1 cm cuff for later reattachment. The capsule was and the hip was dislocated. The femoral neck cut was made using a broach as a guide and the femoral head fracture was removed and sized to a size 48. The acetabulum was irrigated. No loose bodies were noted. The femur was prepared with the box chisel followed by the T-handle reamer and sequential broaches up to a 3. The 3 provided excellent fill and stability. This was trialled with a 48 head and neutral neck. The hip was reduced and found to be stable in all planes with no impingement noted. The hip was then redislocated. The trials were removed. The joint was further irrigated with pulse lavage. The prosthesis was placed in 15 degrees of anteversion and had excellent fill noted. The superior surface was irrigated and dried and the head liner construct was placed. The hip was reduced after inspecting the acetabulum taken through range of motion, no impingement was noted. No instability was noted in any plane. The joint was further irrigated with pulse lavage. The abductor tendon and capsule were repaired with #5 Tevdek in mxoket-xh-elzac interrupted fashion. The wound was further irrigated. The iliotibial band was closed in a running fashion with #1 Vicryl, subcutaneous tissues were irrigated with pulse lavage, 0 Vicryl was used for the deep subcutaneous tissue, 2-0 Vicryl for the superficial subcutaneous tissue, gabrielle used on the skin. The incision was infiltrated with plain Marcaine. A soft dressing was applied and the patient was transferred to the recovery room awake and in stable condition. Job ID: [id number] DocumentID: [id number] Dictated Date: 09/05/2020 09:52:07 [employer] Special Education Teacher Date: 09/05/2020 14:22:07 Dictated By: AUDI AL MD
--- NOTE | 2020-09-05 14:57 | Physical Therapy Evaluation ---
PT Evaluation-General Medical Diagnosis Admission Date Sep 04, 2020 at 17:20 Medical Diagnosis: right hip bipolar replacement Onset Date: Sep 05, 2020 Therapy Diagnosis Therapy Diagnosis: impaired mobility, strength, endurance, ROM Height/Weight Height (Feet): 5 Height (Inches): 3.00 Weight (Pounds): 197 Weight (Ounces): 0.0 Precautions Precautions/Isolations: Fall Prevention, Standard Precautions Weight Bear Status Right Lower Extremity: Right Weight Bearing/Tolerated standard total hip precautions Referral Physician: Stone Reason for Referral: Evaluation/Treatment Medical History Additional Medical History Past Medical History Surgeries: Yes (LEFT BREAST/COLONOSCOPY-POLYP REMVED, PREV CEA) Breast, Coronary Stent, Tonsillectomy, Vascular Surgery Respiratory: Yes Pneumonia, Sleep Apnea Currently Using CPAP: Yes Currently Using BIPAP: No Cardiac: Yes Coronary Artery Disease, Hypertension, Peripheral Vascular Neurological: Yes Dementia (Reports memory difficulty) Reproductive Disorders: No Female Reproductive Disorders: Denies Sexually Transmitted Disease: No Genitourinary: No Gastrointestinal: Yes (DIARRHEA (NERVOUS BOWEL)) Gastroesophageal Reflux Musculoskeletal: Yes (ARTHRITIS KNEE'S) Arthritis Endocrine: No HEENT: Yes Cataract Loss of Vision: Bilateral Hearing Impairment: Hard of Hearing Cancer: Yes Leukemia, Breast Psychosocial: Yes Anxiety, Depression Reviewed History: Yes Social History Home: Single Level Current Living Status: Spouse Entry Into Home: Stairs With Railing PT Steps Into Home: 4 Prior Prior Level of Function SCALE: Activities may be completed with or without assistive devices. 0-Tvvrzfrrhv-peyiweu completes the activity by him/herself with no assistance from a helper. 5-Set-up or Clean-up Assistance-helper sets up or cleans up; patient completes activity. [place] assists only prior to or following the activity. 4-Supervision or Touching Assistance-helper provides verbal cues and/or touching/steadying and/or contact guard assistance as patient completes activity. Assistance may be provided throughout the activity or intermittently. 3-Partial/Moderate Assistance-helper does LESS THAN HALF the effort. [place] lifts, holds or supports trunk or limbs, but provides less than half the effort. 2-Substantial/Maximal Assistance-helper does MORE THAN HALF the effort. [place] lifts or holds trunk or limbs and provides more than half the effort. 4-Xqcgtolhu-uauodl does ALL the effort. Patient does none of the effort to complete the activity. Or, the assistance of 2 or more helpers is required for the patient to complete the activity. If activity was not attempted, code reason: 7-Patient Refused. 9-Not Applicable-not attempted and the patient did not perform the activity before the current illness, exacerbation or injury. 10-Not Attempted due to Environmental Limitations-(lack of equipment, weather restraints, etc.). 88-Not Attempted due to Medical Conditions or Safety Concerns. Bed Mobility: 6 Transfers (B,C,W/C): 6 Gait: 6 Stairs: 6 Indoor Mobility (Ambulation): Independent Stairs: Independent PT Evaluation-Current Subjective Patient in bed pre tx, agrees to PT, has very little pain in right hip. Pt/Family Goals to be independent at home Objective Patient Orientation: Person, Place, Situation Attachments: Oxygen, Fernandez Catheter, IV Sensory Vision: Wears Glasses Hearing: Functional Sensation Right Lower Extremit: Intact Sensation Left Lower Extremity: Intact Transfers Roll Left to Right (QC): 4 Lying to Sitting/Side of Bed(Q: 3 Sit to Stand (QC): 4 Chair/Blr-ja-Rwrog Xfer(QC): 4 Patient performed bed mobility with SBA, she was able to slide her leg to the edge of the bed and scoot forward on her own but needed min assist to sit. Patient stood with CGA Gait Does the Patient Walk?: Yes Mode of Locomotion: Walk Anticipated Mode of Locomotion: Walk Distance: 5' Gait Assistive Device: FWW Comments/Gait Description slow, antalgic, she is able to bear weight on her right leg Balance Sitting Static: Normal Sitting Dynamic: Normal Standing Static: Good Treatment supine total hip protocol x15 (AP, HS, QS, GS, hip abd/add, SAQ) Assessment/Needs Patient has impaired mobility, strength, endurance. Patient was able to ambulate a few feet to recliner and sit. Patient in recliner post tx with nurse call, phone, tray, all needs met, family in the room. Rehab Potential: Fair PT Fpc Goals Pole Shaver Helper Goals PT Pole Shaver Helper Goals Time Frame: September 12, 2020 Roll Left & Right (QC): 6 Sit to Lying (QC): 4 Lying-Sitting on Side/Bed(QC): 4 Sit to Stand (QC): 4 Chair/Ejr-zg-Esrgr Xfer(QC): 4 Walk 10 feet (QC): 4 Walk 50ft with 2 Turns (QC): 4 PT Plan Problem List Problem List: Activity Tolerance, Functional Strength, Safety, Balance, Gait, Transfer, Bed Mobility, ROM Treatment/Plan Treatment Plan: Continue Plan of Care Treatment Plan: Bed Mobility, Education, Functional Activity Johan, Functional Strength, Gait, Safety, Therapeutic Exercise, Transfers Treatment Duration: September 12, 2020 Frequency: 11 times per week Estimated Hrs Per Day: .25 hour per day Patient and/or Family Agrees t: Yes Safety Risks/Education Patient Education: Gait Training, Transfer Techniques, Reviewed Precautions, Correct Positioning, Safety Issues Teaching Recipient: Patient Teaching Methods: Demonstration, Discussion Response to Teaching: Reinforcement Needed Discharge Recommendations Plan Patient will perform bed mobility and transfer training, balance and endurance training, functional strengthening, stair training, gait training, and education, to improve functional mobility and independence at home. Therapy Discharge Recommendati: Scheduled Assistance, Home & Family, Post Acute PT Time/GCodes Time In: 1416 Time Out: 1437 Total Billed Treatment Time: 21 Total Billed Treatment 1 visit MARTHA Carr' NINA ARCHIBALD PT Sep 05, 2020 14:57
[2020-09-05] MEDS ORDERED: PROTEASE PO SCH (16:00)
[2020-09-05] MEDS ORDERED: LIPASE PO SCH (16:00)
[2020-09-05] MEDS ORDERED: AMYLASE PO SCH (16:00)
[2020-09-05] MEDS ORDERED: [UNRECOGNIZED DRUG - OTHER] PO SCH (16:00)
[2020-09-05] MEDS ORDERED: LIPASE/AMYLASE/PROTEASE (PANCRELIPASE) 5,000 UNITS CAP PO PRN (16:15)
[2020-09-05] MEDS: LIPASE/AMYLASE/PROTEASE (PANCRELIPASE) 5,000 UNITS CAP PO SCH (17:25)
[2020-09-05] MEDS ORDERED: PROP10DR4 OP (17:47)
[2020-09-05] MEDS: prednisoLONE 1% OPTH (PRED FORTE) 5 ML BTL OU SCH (17:49)
[2020-09-05] MEDS: MONTELUKAST 10 MG (SINGULAIR) TAB PO SCH (19:50)
[2020-09-05] MEDS: ACYCLOVIR 400 MG TABLET (ZOVIRAX) PO SCH (19:51)
[2020-09-05] MEDS ORDERED: RIVAROXABAN 20 MG TABLET (XARELTO) PO SCH (21:00)
[2020-09-05] MEDS ORDERED: RT--FLUTICASONE/SALMETEROL 113-14 (AIRDUO RespiCLICK) IH SCH (21:00)
[2020-09-05] MEDS ORDERED: ENOXAPARIN 30 MG/0.3 ML (LOVENOX) SYR SC SCH (21:00)
[2020-09-05] MEDS ORDERED: NON-FORMULARY MEDICATION 1 EA EA (Fluticasone/Salmeterol (Advair 250-50 Diskus) 1 EACH) IH SCH (21:00)
[2020-09-05] MEDS ORDERED: PREDNISOLONE ACETATE OU SCH (21:00)
[2020-09-05] MEDS ORDERED: NON-FORMULARY MEDICATION 1 EA EA (Acyclovir 800 MG) PO SCH (21:00)
[2020-09-05] MEDS ORDERED: ENOXAPARIN 40 MG/0.4 ML (LOVENOX) SYR SQ SCH (21:00)
[2020-09-05] MEDS: ADVAIR DISKUS 250/50 IH SCH (21:32)
[2020-09-06 04:00] VITALS: BP 135/69
[2020-09-06 05:45] LABS: BASOPHILS % (AUTO) 0 % (0-10); EOSINOPHILS % (AUTO) 0 % (0-10); HEMATOCRIT 30 % (35-52); HEMOGLOBIN 9.5 g/dL (11.5-16.0); LYMPHOCYTES # (AUTO) 0.2 10^3/uL (1.0-4.0); LYMPHOCYTES % (AUTO) 3 % (12-44); MEAN CORPUSCULAR HEMOGLOBIN 28 pg (25-34); MEAN CORPUSCULAR HGB CONC 31 g/dL (32-36); MEAN CORPUSCULAR VOLUME 90 fL (80-99); MEAN PLATELET VOLUME 10.9 fL (9.0-12.2); MONOCYTES # (AUTO) 0.6 10^3/uL (0.0-1.0); MONOCYTES % (AUTO) 11 % (0-12); NEUTROPHILS % (AUTO) 86 % (42-75); PLATELET COUNT 154 10^3/uL (130-400); WHITE BLOOD COUNT 5.8 10^3/uL (4.3-11.0)
[2020-09-06] MEDS: LIPASE/AMYLASE/PROTEASE (PANCRELIPASE) 5,000 UNITS CAP PO SCH ×3 (05:49→17:10)
[2020-09-06 06:04] LABS: LYMPHOCYTES % (MANUAL) 2 %; MONOCYTES % (MANUAL) 3 %; NEUTROPHILS % (MANUAL) 95 %
[2020-09-06 06:05] LABS: BURR CELLS MARKED; HYPOCHROMASIA MODERATE
[2020-09-06 06:06] LABS: CREATININE SERUM 1.67 MG/DL (0.60-1.30); POTASSIUM 4.1 MMOL/L (3.6-5.0)
[2020-09-06] MEDS: ADVAIR DISKUS 250/50 IH SCH ×2 (07:09→22:20)
--- NOTE | 2020-09-06 07:48 | Progress Note ---
Standard Progress Note Progress Notes/Assess & Plan Date Seen by a Provider: Sep 06, 2020 Time Seen by a Provider: 07:47 Progress/Assessment & Plan no complaints Radiographs--HW well positioned without fracture Vital Signs Date Time Temp Pulse Resp B/P (MAP) Pulse Ox O2 Delivery O2 Flow Rate FiO2 09/06/20 07:09 98 Nasal Cannula 1.00 09/06/20 04:00 36.2 63 16 135/69 (91) 97 Nasal Cannula 2.00 09/05/20 23:28 36.6 66 16 133/64 (87) 96 Nasal Cannula 2.00 09/05/20 21:32 94 Nasal Cannula 1.00 09/05/20 19:45 Nasal Cannula 2.00 09/05/20 19:35 35.6 65 16 147/65 (92) 96 Nasal Cannula 2.00 09/05/20 16:07 35.4 65 18 142/81 (101) 96 Nasal Cannula 3.50 09/05/20 11:13 36.3 59 18 145/80 (101) 96 Nasal Cannula 3.00 09/05/20 10:55 Nasal Cannula 2 09/05/20 10:50 36.1 20 141/74 (96) 93 Nasal Cannula 2 09/05/20 10:40 Nasal Cannula 2 09/05/20 10:35 18 135/48 (77) 94 Nasal Cannula 2 09/05/20 10:20 20 134/60 (84) 93 OxyMask 2 09/05/20 10:20 OxyMask 2 09/05/20 10:10 22 120/64 (82) 90 OxyMask 4 09/05/20 10:05 OxyMask 6 09/05/20 10:00 20 101/49 (66) 97 OxyMask 6 09/05/20 09:54 OxyMask 8 09/05/20 09:54 36.7 18 101/40 (60) 99 OxyMask 8 09/05/20 08:00 99 Nasal Cannula 1.00 I & O 09/06/20 07:00 Intake Total 2575 ml Output Total 1925 ml Balance 650 ml Laboratory Tests Test 09/05/20 16:06 09/06/20 04:45 Range/Units Hemoglobin 11.0 #L 9.5 L 11.5-16.0 g/dL Hematocrit 35 30 L 35-52 % White Blood Count 5.8 4.3-11.0 10^3/uL Red Blood Count 3.39 L 3.80-5.11 10^6/uL Mean Corpuscular Volume 90 80-99 fL Mean Corpuscular Hemoglobin 28 25-34 pg Mean Corpuscular Hemoglobin Concent 31 L 32-36 g/dL Red Cell Distribution Width 16.0 H 10.0-14.5 % Platelet Count 154 130-400 10^3/uL Mean Platelet Volume 10.9 9.0-12.2 fL Immature Granulocyte % (Auto) 1 % Neutrophils (%) (Auto) 86 H 42-75 % Lymphocytes (%) (Auto) 3 L 12-44 % Monocytes (%) (Auto) 11 0-12 % Eosinophils (%) (Auto) 0 0-10 % Basophils (%) (Auto) 0 0-10 % Neutrophils # (Auto) 5.0 1.8-7.8 10^3/uL Lymphocytes # (Auto) 0.2 L 1.0-4.0 10^3/uL Monocytes # (Auto) 0.6 0.0-1.0 10^3/uL Eosinophils # (Auto) 0.0 0.0-0.3 10^3/uL Basophils # (Auto) 0.0 0.0-0.1 10^3/uL Immature Granulocyte # (Auto) 0.0 0.0-0.1 10^3/uL Neutrophils % (Manual) 95 % Lymphocytes % (Manual) 2 % Monocytes % (Manual) 3 % Hypochromasia MODERATE [place] Cells MARKED Blood Morphology Comment NA Sodium Level 138 135-145 MMOL/L Potassium Level 4.1 3.6-5.0 MMOL/L Chloride Level 108 H 98-107 MMOL/L Carbon Dioxide Level 20 L 21-32 MMOL/L Anion Gap 10 5-14 MMOL/L Blood Urea Nitrogen 22 H 7-18 MG/DL Creatinine 1.67 H 0.60-1.30 MG/DL Estimat Glomerular Filtration Rate 30 BUN/Creatinine Ratio 13 Glucose Level 156 H 70-105 MG/DL Calcium Level 7.0 L 8.5-10.1 MG/DL RLE--dressing intact. no calf tenderness s/p R hip bipolar mobilize IRU JACKIE Kemp MD Sep 06, 2020 07:48
[2020-09-06] MEDS: ceFAZolin 1,000 MG/SWFI 10 ML IV PUSH IV SCH ×4 (07:59→17:09)
[2020-09-06 08:00] VITALS: BP 131/58
[2020-09-06] MEDS: [UNRECOGNIZED DRUG - OTHER] PO SCH (08:00)
[2020-09-06] MEDS ORDERED: PATIENT MAY USE OWN MED,SINGLE MED PO SCH (09:00)
[2020-09-06] MEDS ORDERED: NON-FORMULARY MEDICATION 1 EA EA (Fexofenadine HCl 180 MG) PO SCH (09:00)
[2020-09-06] MEDS: DOCUSATE SODIUM 100 MG (COLACE) CAP PO SCH ×2 (09:57→20:34)
[2020-09-06] MEDS: fluCOnazole (DIFLUCAN) 100 MG TAB PO SCH (09:57)
[2020-09-06] MEDS: PANTOPRAZOLE 40 MG (PROTONIX) TAB PO SCH (09:57)
[2020-09-06] MEDS: ATENOLOL 25 MG (TENORMIN) TAB PO SCH (09:58)
[2020-09-06] MEDS: LORATADINE (CLARITIN) 10 MG TAB PO SCH (09:58)
[2020-09-06] MEDS: ACYCLOVIR 400 MG TABLET (ZOVIRAX) PO SCH ×2 (09:58→20:33)
[2020-09-06] MEDS: SENNOSIDES 8.6 MG (SENOKOT) TAB PO SCH ×2 (09:58→20:34)
[2020-09-06] MEDS: DONEPEZIL 10 MG (ARICEPT) TAB PO SCH (09:58)
[2020-09-06] MEDS: prednisoLONE 1% OPTH (PRED FORTE) 5 ML BTL OU SCH ×2 (09:59→13:50)
--- NOTE | 2020-09-06 10:00 | Physical Therapy Daily Note ---
PT Daily Note-Current Subjective Patient agrees to PT. 8/10 right hip pain with mobility. Pain Numeric Pain Scale: 8 Location: Right Location Body Site: Hip Pain Description: Acute Mental Status Patient Orientation: Person, Time, Situation Attachments: Fernandez Catheter Transfers SCALE: Activities may be completed with or without assistive devices. 3-Ztvytzhdvf-gwuaium completes the activity by him/herself with no assistance from a helper. 5-Set-up or Clean-up Assistance-helper sets up or cleans up; patient completes a ctivity. [place] assists only prior to or following the activity. 4-Supervision or Touching Assistance-helper provides verbal cues and/or touching/steadying and/or contact guard assistance as patient completes activity. Assistance may be provided throughout the activity or intermittently. 3-Partial/Moderate Assistance-helper does LESS THAN HALF the effort. [place] lifts, holds or supports trunk or limbs, but provides less than half the effort. 2-Substantial/Maximal Assistance-helper does MORE THAN HALF the effort. [place] lifts or holds trunk or limbs and provides more than half the effort. 8-Bvyrrksrl-kaltif does ALL the effort. Patient does none of the effort to complete the activity. Or, the assistance of 2 or more helpers is required for the patient to complete the activity. If activity was not attempted, code reason: 7-Patient Refused. 9-Not Applicable-not attempted and the patient did not perform the activity before the current illness, exacerbation or injury. 10-Not Attempted due to Environmental Limitations-(lack of equipment, weather restraints, etc.). 88-Not Attempted due to Medical Conditions or Safety Concerns. Lying to Sitting/Side of Bed(Q: 3 Sit to Stand (QC): 3 Chair/Riy-iu-Xlrzv Xfer(QC): 3 Weight Bearing Right Lower Extremity: Right Weight Bearing/Tolerated standard total hip precautions Gait Training Does the Patient Walk?: Yes Distance: 100' Walk 10 feet (QC): 3 Walk 50 ft with 2 Turns(QC): 3 Walk 150 ft (QC): 88 Gait Assistive Device: FWW slow, antalgic, step to gait sequence Exercises Supine Ex: Ankle pumps, Quad Set, Heel Slides Supine Reps: 12 (AAROM right LE) Seated Therapy Exercises: Ankle pumps, Long arc quads Seated Reps: 15 Assessment Patient up in recliner with needs met. Patient tolerated treatment and requested pain medication. RN notified. Increase activity as tolerated by patient. PT Urology Physician Assistant Goals Urology Physician Assistant Goals PT Urology Physician Assistant Goals Time Frame: September 12, 2020 Roll Left & Right (QC): 6 Sit to Lying (QC): 4 Lying-Sitting on Side/Bed(QC): 4 Sit to Stand (QC): 4 Chair/Rzn-pc-Ehjde Xfer(QC): 4 Walk 10 feet (QC): 4 Walk 50ft with 2 Turns (QC): 4 PT Plan Treatment/Plan Treatment Plan: Continue Plan of Care Treatment Plan: Bed Mobility, Education, Functional Activity Johan, Functional Strength, Gait, Safety, Therapeutic Exercise, Transfers Treatment Duration: September 12, 2020 Frequency: 11 times per week Estimated Hrs Per Day: .25 hour per day Patient and/or Family Agrees t: Yes Time/GCodes Time In: 830 Time Out: 853 Total Billed Treatment Time: 23 Total Billed Treatment 1 visit GT 13 min EX 10 min MERI DÍAZ PT Sep 06, 2020 10:00
--- NOTE | 2020-09-06 11:03 | Progress Note - Hospitalist ---
Subjective HPI/CC On Admission Date Seen by Provider: Sep 06, 2020 Time Seen by Provider: 10:05 Paola Amaral is a 79 year old female with PMH CLL, anemia of chronic disease, CKD stage 4, osteoarthritis, HTN, HLD, COPD, PVD, dementia, carotid stenosis, who presented after a ground level fall. [facility] o[facility] with Dr. Last and upon leaving she fell in the parking lot. She reports that she had been having issues with her left knee. She has a walker but does not use it. She was not using any assistive devices at the time of her fall. She says she lost her footing and ended up on the ground. She reports that she was in her normal state of health prior to the fall. She denies fevers, chills, chest pain, palpitations, shortness of breath, cough, abdominal pain, nausea, vomiting, diarrhea, dysuria. Subjective/Events-last exam She is feeling well this morning. She is sitting in her bedside chair. She has already worked with physical therapy. She has been eating and drinking. She has not had any bowel movements yet. Objective Exam Vital Signs Vital Signs Date Time Temp Pulse Resp B/P (MAP) Pulse Ox O2 Delivery O2 Flow Rate FiO2 09/06/20 08:00 97 Nasal Cannula 1.00 09/06/20 08:00 36.3 69 20 131/58 (82) Capillary Refill : Less Than 3 Seconds General Appearance: No Apparent Distress, Obese Respiratory: Lungs Clear, Normal Breath Sounds, No Respiratory Distress Cardiovascular: Regular Rate, Rhythm, No Edema, No Murmur Gastrointestinal: Normal Bowel Sounds, Non Tender, Soft Extremity: Normal Inspection, Non Tender, No Pedal Edema Neurologic/Psychiatric: Alert, Oriented x3, No Motor/Sensory Deficits, Normal Mood/Affect Skin: Normal Color, Warm/Dry Results/Procedures Lab Laboratory Tests 09/05/20 16:06 09/06/20 04:45 Patient resulted labs reviewed. Imaging: Reviewed Imaging Report Assessment/Plan Assessment and Plan Assess & Plan/Chief Complaint Closed right hip fracture Ground level fall Left knee osteoarthritis Orthopedic surgery consutled, performed surgery 09/05 s/p right hip repair and left knee steroid injection Pain regimen Bowel regimen Incentive spirometry Resume Xarelto PT/OT Planning to discharge to IRU tomorrow Anemia of chronic disease Hgb 7.6 on arrival s/p 2 units PRBC Hgb 9.5 this morning Transfuse for Hgb <7 KAREEM on CKD 3 Cr 2.5 on arrival, improved to 1.67 today, near baseline Continue to monitor CLL Obesity Clinically significant, no acute management needs HTN HLD COPD PVD Dementia Continue home meds DVT prophylaxis: already receiving therapeutic anticoagulation Diagnosis/Problems Diagnosis/Problems (1) Closed right hip fracture Status: Acute Qualifiers: Encounter type: initial encounter Qualified Codes: S72.001A - Fracture of unspecified part of neck of right femur, initial encounter for closed fracture (2) Fall on same level Status: Acute Qualifiers: Encounter type: initial encounter Qualified Codes: W18.30XA - Fall on same level, unspecified, initial encounter (3) Left knee pain Status: Acute Qualifiers: Chronicity: chronic Qualified Codes: M25.562 - Pain in left knee; G89.29 - Other chronic pain (4) Acute renal failure superimposed on chronic kidney disease Status: Acute Qualifiers: Acute renal failure type: unspecified Chronic kidney disease stage: stage 3 (moderate) Chronic kidney disease stage 3 subtype: stage 3b (GFR 30-44) Qualified Codes: N17.9 - Acute kidney failure, unspecified; N18.32 - Chronic kidney disease, stage 3b (5) Anemia of chronic disease Status: Acute LO CONRAD MD Sep 06, 2020 11:03
--- NOTE | 2020-09-06 11:12 | Occupational Therapy Eval ---
OT Evaluation-General/PLF Medical Diagnosis Admission Date Sep 04, 2020 at 17:20 Medical Diagnosis: right hip bipolar replacement Onset Date: Sep 05, 2020 Therapy Diagnosis Therapy Diagnosis: decreased ADL status Height/Weight Height (Feet): 5 Height (Inches): 3.00 Weight (Pounds): 197 Weight (Ounces): 0.0 Precautions Precautions/Isolations: Fall Prevention, Standard Precautions Referral Physician: Stone Referral Reason: Evaluation/Treatment Medical History Additional Medical History CKD stage 4, HTN, HLD, COPD, PVD, dementia, carotid stenosis Current History ground level fall, s/p bipolar hip repair RLE Social History Home: Single Level Current Living Status: Spouse Entry Into Home: Stairs With Railing Steps Into Home: 4 ADL-Prior Level of Function SCALE: Activities may be completed with or without assistive devices. 8-Woszitbhkh-mssxwxk completes the activity by him/herself with no assistance from a helper. 5-Set-up or Clean-up Assistance-helper sets up or cleans up; patient completes activity. [place] assists only prior to or following the activity. 4-Supervision or Touching Assistance-helper provides verbal cues and/or touching/steadying and/or contact guard assistance as patient completes activity. Assistance may be provided throughout the activity or intermittently. 3-Partial/Moderate Assistance-helper does LESS THAN HALF the effort. [place] lifts, holds or supports trunk or limbs, but provides less than half the effort. 2-Substantial/Maximal Assistance-helper does MORE THAN HALF the effort. [place] lifts or holds trunk or limbs and provides more than half the effort. 0-Rihfwrgbo-nrmsfc does ALL the effort. Patient does none of the effort to complete the activity. Or, the assistance of 2 or more helpers is required for the patient to complete the activity. If activity was not attempted, code reason: 7-Patient Refused. 9-Not Applicable-not attempted and the patient did not perform the activity before the current illness, exacerbation or injury. 10-Not Attempted due to Environmental Limitations-(lack of equipment, weather restraints, etc.). 88-Not Attempted due to Medical Conditions or Safety Concerns. ADL PLOF Comments Pt reports IND with ADLs at PLOF, no AD/AE. Self Care: Independent Functional Cognition: Independent DME/Equipment: Bath Chair, Shower Hose Roofing Foreman, Tub/Shower OT Current Status Subjective Pt seated in recliner, family member present, agreeable to OT evaluation/tx. Mental Status/Objective Patient Orientation: Person, Time, Situation Attachments: Fernandez Catheter, Oxygen Current Glasses/Contacts: Yes Dentures/Partials: Yes Hand Dominance: Right Upper Extremity ROM WFL, BUE shoulder flexion to approx 150 degrees, able to touch back of head with hands Upper Extremity Coordination WFL Upper Extremity Sensation Pt denies tingling/numbness ADL-Treatment Eating (QC): 6 (Per pt report) Oral Hygiene (QC): 5 (based on clinical judgement, pt would require set up assist with task) Upper Body Dressing (QC): 5 (Based on clinical judgement, pt would require set up assist wtih task) Lower Body Dressing (QC): 2 (Based on clincial judgement, pt would require max A in order to maintain hip precautions) On/Off Footwear (QC): 1 (Based on clinical judgement, pt would require total assist in order to maintain hip precautions) Other Treatments Pt seated in recliner, agreeable to OT evaluation and tx. OT educated pt on purpose and benefit of OT, she verbalized understanding. Pt provided information about PLOF and home set up, and participated in UE Screen. Pt indicates she is planning on transferring to ARU tomorrow, OT educated pt on rehab process, encouraging pt to have family bring clothes. Pt asked questions about ARU, OT answered pt's questions to her satisfaction. In order to increase BUE Strength and activity tolerance, pt completed x10 reps BUE shoulder flexion, elbow flexion/extension, and finger flexion/extension. Post tx, pt seated in recliner, call light in reach and all needs met. Education OT Patient Education: Correct positioning, Modified ADL techniques, Progress toward Goal/Update tx plan, Purpose of tx/functional activities, Rehab process Teaching Recipient: Patient Teaching Methods: Discussion Response to Teaching: Verbalize Understanding OT Bin Packer Goals Fdc Goals Time Frame: September 14, 2020 Eating (QC): 6 Oral Hygiene (QC): 6 Toileting Hygiene (QC): 6 Shower/Bathe Self (QC): 6 Upper Body Dressing (QC): 6 Lower Body Dressing (QC): 6 On/Off Footwear (QC): 6 Additional Goals: 1-Demonstrate ADL Tasks, 2-Verbalize Understanding, 3- ImproveStrength/Johan 1=Demonstrate adherence to instructed precautions during ADL tasks. 2=Patient will verbalize/demonstrate understanding of assistive devices/modifications for ADL. 3=Patient will improve strength/tolerance for activity to enable patient to perform ADL's. OT Education/Plan Problem List/Assessment Assessment: Decreased Activ Tolerance, Decreased UE Strength, Impaired Funct Ba jt, Impaired I ADL's, Impaired Self-Care Skills Discharge Recommendations Plan/Recommendations: Continue POC Treatment Plan/Plan of Care Patient would benefit from OT for education, treatment and training to promote independence in ADL's, mobility, safety and/or upper extremity function for ADL's. Plan of Care: ADL Retraining, Functional Mobility, UE Funct Exercise/Act Treatment Duration: September 14, 2020 Frequency: 5 times per week Estimated Hrs Per Day: .25 hour per day Rehab Potential: Fair Time/GCodes Start Time: 10:40 Stop Time: 11:58 Total Time Billed (hr/min): 18 Billed Treatment Time 1MARTHA ADDISON OT Sep 06, 2020 11:12
[2020-09-06 12:05] VITALS: BP 140/63
--- NOTE | 2020-09-06 13:54 | Physical Therapy Daily Note ---
PT Daily Note-Current Subjective Patient agrees to PT. Request toilet use for BM Pain Numeric Pain Scale: 4 Location: Right Location Body Site: Hip Pain Description: Acute Mental Status Patient Orientation: Normal For Age Transfers SCALE: Activities may be completed with or without assistive devices. 6-Gfkerutfmk-twfvjue completes the activity by him/herself with no assistance from a helper. 5-Set-up or Clean-up Assistance-helper sets up or cleans up; patient completes activity. [place] assists only prior to or following the activity. 4-Supervision or Touching Assistance-helper provides verbal cues and/or touching/steadying and/or contact guard assistance as patient completes activity. Assistance may be provided throughout the activity or intermittently. 3-Partial/Moderate Assistance-helper does LESS THAN HALF the effort. [place] lifts, holds or supports trunk or limbs, but provides less than half the effort. 2-Substantial/Maximal Assistance-helper does MORE THAN HALF the effort. [place] lifts or holds trunk or limbs and provides more than half the effort. 8-Eazynrmgo-lbqikg does ALL the effort. Patient does none of the effort to complete the activity. Or, the assistance of 2 or more helpers is required for the patient to complete the activity. If activity was not attempted, code reason: 7-Patient Refused. 9-Not Applicable-not attempted and the patient did not perform the activity before the current illness, exacerbation or injury. 10-Not Attempted due to Environmental Limitations-(lack of equipment, weather restraints, etc.). 88-Not Attempted due to Medical Conditions or Safety Concerns. Sit to Stand (QC): 3 Toilet Transfer (QC): 3 Weight Bearing Right Lower Extremity: Right Weight Bearing/Tolerated standard total hip precautions Gait Training Does the Patient Walk?: Yes Distance: 200' Walk 10 feet (QC): 4 Walk 50 ft with 2 Turns(QC): 4 Walk 150 ft (QC): 4 Gait Assistive Device: FWW improved gait sequence with reciprocal pattern Exercises Seated Therapy Exercises: Ankle pumps, Long arc quads Seated Reps: 12 (x 2 sets) Assessment Patient incontinent BM while walking to restroom. Patient able to toilet self. Patient improving. PT Senior Living Goals Service Writer Goals PT Service Writer Goals Time Frame: September 12, 2020 Roll Left & Right (QC): 6 Sit to Lying (QC): 4 Lying-Sitting on Side/Bed(QC): 4 Sit to Stand (QC): 4 Chair/Ope-lj-Zdbik Xfer(QC): 4 Walk 10 feet (QC): 4 Walk 50ft with 2 Turns (QC): 4 PT Plan Treatment/Plan Treatment Plan: Continue Plan of Care Treatment Plan: Bed Mobility, Education, Functional Activity Johan, Functional Strength, Gait, Safety, Therapeutic Exercise, Transfers Treatment Duration: September 12, 2020 Frequency: 11 times per week Estimated Hrs Per Day: .25 hour per day Patient and/or Family Agrees t: Yes Time/GCodes Time In: 1300 Time Out: 1326 Total Billed Treatment Time: 26 Total Billed Treatment 1 visit GT 16 min EX 10 min MERI DÍAZ PT Sep 06, 2020 13:54
[2020-09-06 16:10] VITALS: BP 148/67
[2020-09-06] MEDS ORDERED: RIVAROXABAN 20 MG TABLET (XARELTO) PO SCH (17:00)
[2020-09-06 19:51] VITALS: BP 146/66
[2020-09-06] MEDS: MONTELUKAST 10 MG (SINGULAIR) TAB PO SCH (20:33)
[2020-09-06 23:21] VITALS: BP 141/65
[2020-09-07] MEDS: LIPASE/AMYLASE/PROTEASE (PANCRELIPASE) 5,000 UNITS CAP PO SCH (05:26)
[2020-09-07 05:59] LABS: BASOPHILS % (AUTO) 0 % (0-10); EOSINOPHILS % (AUTO) 0 % (0-10); HEMATOCRIT 32 % (35-52); HEMOGLOBIN 10.1 g/dL (11.5-16.0); LYMPHOCYTES # (AUTO) 0.2 10^3/uL (1.0-4.0); LYMPHOCYTES % (AUTO) 3 % (12-44); MEAN CORPUSCULAR HEMOGLOBIN 28 pg (25-34); MEAN CORPUSCULAR HGB CONC 32 g/dL (32-36); MEAN CORPUSCULAR VOLUME 89 fL (80-99); MEAN PLATELET VOLUME 10.4 fL (9.0-12.2); MONOCYTES # (AUTO) 0.9 10^3/uL (0.0-1.0); MONOCYTES % (AUTO) 13 % (0-12); NEUTROPHILS # (AUTO) 5.4 10^3/uL (1.8-7.8); NEUTROPHILS % (AUTO) 83 % (42-75); PLATELET COUNT 164 10^3/uL (130-400); WHITE BLOOD COUNT 6.6 10^3/uL (4.3-11.0)
[2020-09-07 06:22] LABS: CALCIUM 7.4 MG/DL (8.5-10.1); CREATININE SERUM 1.38 MG/DL (0.60-1.30); POTASSIUM 4.1 MMOL/L (3.6-5.0)
--- NOTE | 2020-09-07 06:53 | Progress Note ---
Standard Progress Note Progress Notes/Assess & Plan Date Seen by a Provider: Sep 07, 2020 Time Seen by a Provider: 06:52 Progress/Assessment & Plan no complaints Radiographs--HW well positioned without fracture Vital Signs Date Time Temp Pulse Resp B/P (MAP) Pulse Ox O2 Delivery O2 Flow Rate FiO2 09/06/20 07:09 98 Nasal Cannula 1.00 09/06/20 04:00 36.2 63 16 135/69 (91) 97 Nasal Cannula 2.00 09/05/20 23:28 36.6 66 16 133/64 (87) 96 Nasal Cannula 2.00 09/05/20 21:32 94 Nasal Cannula 1.00 09/05/20 19:45 Nasal Cannula 2.00 09/05/20 19:35 35.6 65 16 147/65 (92) 96 Nasal Cannula 2.00 09/05/20 16:07 35.4 65 18 142/81 (101) 96 Nasal Cannula 3.50 09/05/20 11:13 36.3 59 18 145/80 (101) 96 Nasal Cannula 3.00 09/05/20 10:55 Nasal Cannula 2 09/05/20 10:50 36.1 20 141/74 (96) 93 Nasal Cannula 2 09/05/20 10:40 Nasal Cannula 2 09/05/20 10:35 18 135/48 (77) 94 Nasal Cannula 2 09/05/20 10:20 20 134/60 (84) 93 OxyMask 2 09/05/20 10:20 OxyMask 2 09/05/20 10:10 22 120/64 (82) 90 OxyMask 4 09/05/20 10:05 OxyMask 6 09/05/20 10:00 20 101/49 (66) 97 OxyMask 6 09/05/20 09:54 OxyMask 8 09/05/20 09:54 36.7 18 101/40 (60) 99 OxyMask 8 09/05/20 08:00 99 Nasal Cannula 1.00 I & O 09/06/20 07:00 Intake Total 2575 ml Output Total 1925 ml Balance 650 ml Laboratory Tests Test 09/05/20 16:06 09/06/20 04:45 Range/Units Hemoglobin 11.0 #L 9.5 L 11.5-16.0 g/dL Hematocrit 35 30 L 35-52 % White Blood Count 5.8 4.3-11.0 10^3/uL Red Blood Count 3.39 L 3.80-5.11 10^6/uL Mean Corpuscular Volume 90 80-99 fL Mean Corpuscular Hemoglobin 28 25-34 pg Mean Corpuscular Hemoglobin Concent 31 L 32-36 g/dL Red Cell Distribution Width 16.0 H 10.0-14.5 % Platelet Count 154 130-400 10^3/uL Mean Platelet Volume 10.9 9.0-12.2 fL Immature Granulocyte % (Auto) 1 % Neutrophils (%) (Auto) 86 H 42-75 % Lymphocytes (%) (Auto) 3 L 12-44 % Monocytes (%) (Auto) 11 0-12 % Eosinophils (%) (Auto) 0 0-10 % Basophils (%) (Auto) 0 0-10 % Neutrophils # (Auto) 5.0 1.8-7.8 10^3/uL Lymphocytes # (Auto) 0.2 L 1.0-4.0 10^3/uL Monocytes # (Auto) 0.6 0.0-1.0 10^3/uL Eosinophils # (Auto) 0.0 0.0-0.3 10^3/uL Basophils # (Auto) 0.0 0.0-0.1 10^3/uL Immature Granulocyte # (Auto) 0.0 0.0-0.1 10^3/uL Neutrophils % (Manual) 95 % Lymphocytes % (Manual) 2 % Monocytes % (Manual) 3 % Hypochromasia MODERATE Crescent Cells MARKED Blood Morphology Comment NA Sodium Level 138 135-145 MMOL/L Potassium Level 4.1 3.6-5.0 MMOL/L Chloride Level 108 H 98-107 MMOL/L Carbon Dioxide Level 20 L 21-32 MMOL/L Anion Gap 10 5-14 MMOL/L Blood Urea Nitrogen 22 H 7-18 MG/DL Creatinine 1.67 H 0.60-1.30 MG/DL Estimat Glomerular Filtration Rate 30 BUN/Creatinine Ratio 13 Glucose Level 156 H 70-105 MG/DL Calcium Level 7.0 L 8.5-10.1 MG/DL RLE--dressing intact. no calf tenderness s/p R hip bipolar mobilize IRU eval Final Diagnosis no complaints Vital Signs Date Time Temp Pulse Resp B/P (MAP) Pulse Ox O2 Delivery O2 Flow Rate FiO2 4/29/21 23:21 36.4 69 18 141/65 (90) 95 Room Air 09/06/20 22:20 95 Nasal Cannula 1.00 09/06/20 20:52 Nasal Cannula 1.00 09/06/20 19:51 36.0 69 16 146/66 (92) 98 Nasal Cannula 2.00 09/06/20 16:10 36.6 69 20 148/67 (94) 98 Nasal Cannula 2.00 09/06/20 12:05 36.6 70 20 140/63 (88) 96 Nasal Cannula 2.00 09/06/20 08:00 97 Nasal Cannula 1.00 09/06/20 08:00 36.3 69 20 131/58 (82) 91 Room Air 09/06/20 07:09 98 Nasal Cannula 1.00 I & O 09/07/20 07:00 Intake Total 3870 ml Output Total 2075 ml Balance 1795 ml Laboratory Tests Test 09/07/20 05:35 Range/Units White Blood Count 6.6 4.3-11.0 10^3/uL Red Blood Count 3.60 L 3.80-5.11 10^6/uL Hemoglobin 10.1 L 11.5-16.0 g/dL Hematocrit 32 L 35-52 % Mean Corpuscular Volume 89 80-99 fL Mean Corpuscular Hemoglobin 28 25-34 pg Mean Corpuscular Hemoglobin Concent 32 32-36 g/dL Red Cell Distribution Width 16.2 H 10.0-14.5 % Platelet Count 164 130-400 10^3/uL Mean Platelet Volume 10.4 9.0-12.2 fL Immature Granulocyte % (Auto) 1 % Neutrophils (%) (Auto) 83 H 42-75 % Lymphocytes (%) (Auto) 3 L 12-44 % Monocytes (%) (Auto) 13 H 0-12 % Eosinophils (%) (Auto) 0 0-10 % Basophils (%) (Auto) 0 0-10 % Neutrophils # (Auto) 5.4 1.8-7.8 10^3/uL Lymphocytes # (Auto) 0.2 L 1.0-4.0 10^3/uL Monocytes # (Auto) 0.9 0.0-1.0 10^3/uL Eosinophils # (Auto) 0.0 0.0-0.3 10^3/uL Basophils # (Auto) 0.0 0.0-0.1 10^3/uL Immature Granulocyte # (Auto) 0.1 0.0-0.1 10^3/uL Sodium Level 142 135-145 MMOL/L Potassium Level 4.1 3.6-5.0 MMOL/L Chloride Level 108 H 98-107 MMOL/L Carbon Dioxide Level 20 L 21-32 MMOL/L Anion Gap 14 5-14 MMOL/L Blood Urea Nitrogen 26 H 7-18 MG/DL Creatinine 1.38 H 0.60-1.30 MG/DL Estimat Glomerular Filtration Rate 37 BUN/Creatinine Ratio 19 Glucose Level 122 H 70-105 MG/DL Calcium Level 7.4 L 8.5-10.1 MG/DL R hip incision clean and dry. No calf tenderness. Neg Judy's s/p R hip bipolar DC Jim [facility] to IRU today JACKIE AL MD Sep 07, 2020 06:53
[2020-09-07] MEDS: ADVAIR DISKUS 250/50 IH SCH (07:18)
[2020-09-07 07:48] VITALS: BP 133/60
[2020-09-07] MEDS: ATENOLOL 25 MG (TENORMIN) TAB PO SCH (08:10)
[2020-09-07] MEDS: ACYCLOVIR 400 MG TABLET (ZOVIRAX) PO SCH (08:10)
[2020-09-07] MEDS: DOCUSATE SODIUM 100 MG (COLACE) CAP PO SCH (08:10)
[2020-09-07] MEDS: PANTOPRAZOLE 40 MG (PROTONIX) TAB PO SCH (08:10)
[2020-09-07] MEDS: LORATADINE (CLARITIN) 10 MG TAB PO SCH (08:11)
[2020-09-07] MEDS: DONEPEZIL 10 MG (ARICEPT) TAB PO SCH (08:11)
[2020-09-07] MEDS: [UNRECOGNIZED DRUG - OTHER] PO SCH (08:11)
[2020-09-07] MEDS: fluCOnazole (DIFLUCAN) 100 MG TAB PO SCH (08:11)
[2020-09-07] MEDS: SENNOSIDES 8.6 MG (SENOKOT) TAB PO SCH (08:11)
--- NOTE | 2020-09-07 12:49 | Discharge Summary ---
Discharge Summary Hospital Course Was the Problem List Reviewed?: Yes Problems/Dx: (1) Closed right hip fracture Status: Acute Qualifiers: Qualified Codes: S72.001A - Fracture of unspecified part of neck of right femur, initial encounter for closed fracture (2) Fall on same level Status: Acute Qualifiers: Qualified Codes: W18.30XA - Fall on same level, unspecified, initial encounter (3) Left knee pain Status: Acute Qualifiers: Qualified Codes: M25.562 - Pain in left knee; G89.29 - Other chronic pain (4) Acute renal failure superimposed on chronic kidney disease Status: Acute Qualifiers: Qualified Codes: N17.9 - Acute kidney failure, unspecified; N18.32 - Chronic kidney disease, stage 3b (5) Anemia of chronic disease Status: Acute Hospital Course Date of Admission: Sep 04, 2020 at 17:20 Admission Diagnosis : Closed right hip fracture Family Physician/Provider: Clive Nevarez MD Date of Discharge: 09/07/20 Discharge Diagnosis: Closed right hip fracture Hospital Course: Paola Amaral is a 79-year-old female with past medical history of CLL who was admitted after a fall with a closed right hip fracture. Orthopedic surgery was consulted and assisted with her care. She underwent a surgical repair. She did well postoperatively. Her course was complicated by left knee osteoarthritis which contributed to her fall. Orthopedic surgery performed a steroid injection. She also had issues with anemia of chronic disease with superimposed postoperative anemia. She was given 2 units PRBC perioperatively. Her hemoglobin remained stable. Her course was also complicated by acute kidney injury superimposed on chronic kidney disease which improved with IV fluid resuscitation. She worked with physical and occupational therapy and was discharged to the inpatient rehab facility for ongoing therapies. Labs and Pending Lab Test: Laboratory Tests 09/07/20 05:35: White Blood Count 6.6, Red Blood Count 3.60L, Hemoglobin 10.1L, Hematocrit 32L, Mean Corpuscular Volume 89, Mean Corpuscular Hemoglobin 28, Mean Corpuscular Hemoglobin Concent 32, Red Cell Distribution Width 16.2H, Platelet Count 164, Mean Platelet Volume 10.4, Immature Granulocyte % (Auto) 1, Neutrophils (%) (Auto) 83H, Lymphocytes (%) (Auto) 3L, Monocytes (%) (Auto) 13H, Eosinophils (%) (Auto) 0, Basophils (%) (Auto) 0, Neutrophils # (Auto) 5.4, Lymphocytes # (Auto) 0.2L, Monocytes # (Auto) 0.9, Eosinophils # (Auto) 0.0, Basophils # (Auto) 0.0, Immature Granulocyte # (Auto) 0.1, Sodium Level 142, Potassium Level 4.1, Chloride Level 108H, Carbon Dioxide Level 20L, Anion Gap 14, Blood Urea Nitrogen 26H, Creatinine 1.38H, Estimat Glomerular Filtration Rate 37, BUN/Creatinine Ratio 19, Glucose Level 122H, Calcium Level 7.4L Microbiology 09/04/20 MRSA Screen - Final, Complete MRSA not isolated Home Meds Active Reported Systane Gel Eye Drops (Propylene Glycol/Peg 400) 10 Ml Drops.gel 1-2 Drops OP HS Calcium (Calcium Carbonate) 600 Mg Tablet 600 Mg PO DAILY Fish Oil 1,000 mg Capsule ([place] 3 Polyunsat Fatty Acids) 1,000 Mg Cap 1,000 Mg PO DAILY Magnesium (Magnesium Oxide) 400 Mg Tablet 400 Mg PO DAILY Potassium Gluconate 595 MG (Potassium Gluconate) 99 Mg Tablet 99 Mg PO DAILY Aspirin EC (Aspirin) 81 Mg Tablet.dr 81 Mg PO DAILY Advair 250-50 Diskus (Fluticasone/Salmeterol) 1 Each Blst.w.dev 1 Each IH BID Fexofenadine HCl 180 Mg Tablet 180 Mg PO DAILY Hydrocodone-Acetamin 5-325 mg (Hydrocodone/Acetaminophen) 1 Each Tablet 1 Ea PO Q6H PRN Bactrim Ds Tablet (Sulfamethoxazole/Trimethoprim) 1 Each Tablet 1 Ea PO BID ON MON & FRI Xarelto (Rivaroxaban) 20 Mg Tablet 20 Mg PO HS Pantoprazole Sodium 40 Mg Tablet.dr 40 Mg PO DAILY Citalopram HBr (Citalopram Hydrobromide) 20 Mg Tablet 20 Mg PO HS Montelukast Sodium 10 Mg Tablet 10 Mg PO HS Zenpep Dr 40,000 Units Capsule (Lipase/Protease/Amylase) 1 Each Capsule.dr 1 Ea PO 5XD- BEFORE MEALS AND SNACKS Venclexta (Venetoclax) 100 Mg Tablet 200 Mg PO DAILY TAKES 2 (100MG) TABS Fluconazole 100 Mg Tablet 100 Mg PO DAILY Acyclovir 800 Mg Tablet 800 Mg PO BID Donepezil HCl 10 Mg Tablet 10 Mg PO DAILY Atorvastatin Calcium 40 Mg Tablet 40 Mg PO HS Atenolol 25 Mg Tablet 25 Mg PO DAILY Losartan-Hctz 100-25 mg Tab (Losartan/Hydrochlorothiazide) 1 Each Tablet 1 Each PO DAILY Assessment/Pt Instructions Patient discharged to inpatient rehab. Discharge Planning: <30 minutes discharge planning Discharge Instructions Discharge Diet: No Restrictions Activity as Tolerated: Yes Consultations Orthopedic surgery Discharge Physical Examination Vital Signs Vital Signs Date Time Temp Pulse Resp B/P (MAP) Pulse Ox O2 Delivery O2 Flow Rate FiO2 09/07/20 08:29 93 Nasal Cannula 2.00 09/07/20 07:48 36.2 69 18 133/60 (84) Allergies: Coded Allergies: No Known Drug Allergies (Verified , 05/03/16) Copy Copies To 1: CLIVE NEVAREZ MD Discharge Summary Date of Admission Sep 04, 2020 at 17:20 Date of Discharge Sep 07, 2020 at 09:15 Discharge Date: Sep 07, 2020 Discharge Time: 09:15 Admission Diagnosis Hip fracture Consults/Procedures Consulations Orthopedic surgery Procedures Hip surgery Discharge Diagnosis Closed right hip fracture (1) Closed right hip fracture Status: Acute Qualifiers: Qualified Codes: S72.001A - Fracture of unspecified part of neck of right fe mur, initial encounter for closed fracture (2) Fall on same level Status: Acute Qualifiers: Qualified Codes: W18.30XA - Fall on same level, unspecified, initial encounter (3) Left knee pain Status: Acute Qualifiers: Qualified Codes: M25.562 - Pain in left knee; G89.29 - Other chronic pain (4) Acute renal failure superimposed on chronic kidney disease Status: Acute Qualifiers: Qualified Codes: N17.9 - Acute kidney failure, unspecified; N18.32 - Chronic kidney disease, stage 3b (5) Anemia of chronic disease Status: Acute LO CONRAD MD Sep 07, 2020 12:49
--- NOTE | 2020-09-07 19:41 | DISCHARGE SUMMARY ---
DATE OF SERVICE: DIAGNOSES: 1. Right femoral neck fracture. 2. Left knee primary osteoarthritis. 3. Chronic lymphocytic leukemia. 4. Anemia of chronic disease. 5. Chronic kidney disease stage IV. 6. Hypertension. 7. Hyperlipidemia. 8. Chronic obstructive pulmonary disease. 9. Peripheral vascular disease. 10. Dementia. 11. Carotid stenosis. PROCEDURES: 1. Right hip bipolar replacement. 2. Left knee intra-articular injection. HOSPITAL COURSE SUMMARY: The patient is a 79-year-old female who fell in the hospital parking lot and was found to have a displaced femoral neck fracture. She underwent hip bipolar replacement as well as an intra-articular injection and did well postoperatively. At the time of discharge, her wound was clean and dry. She was progressing well with physical therapy. She was tolerating diet well and tolerating pain with oral pain medication. CONDITION AT DISCHARGE: Good. DISCHARGE DIET: Regular. DISPOSITION: Transferred to the inpatient rehabilitation unit for continued physical and occupational therapy. Job ID: [id number] DocumentID: [id number] Dictated Date: 09/07/2020 06:58:33 Tying Machine Operator Lumber Date: 09/07/2020 19:40:28 Dictated By: JACKIE AL MD
== END 2020-09-07 09:15 | DRG 522 ==
LOC: EDUNIT# 15:21 → ER 15:23 → 4TH 17:20
PROVIDERS: ADMIT Internal Medicine; ATTEND Internal Medicine
PROC: 3E0U33Z Introduction of Anti-inflammatory into Joints, Percutaneous Approach (ICD-10-PCS; 2020-09-05)
PROC: 0SRR0JZ Replacement of Right Hip Joint, Femoral Surface with Synthetic Substitute, Open Approach (ICD-10-PCS; principal; 2020-09-05 08:20)
DX: S72.011A Unspecified intracapsular fracture of right femur, initial encounter for closed fracture (principal); N17.9 Acute kidney failure, unspecified; N18.4 Chronic kidney disease, stage 4 (severe); W18.30XA Fall on same level, unspecified, initial encounter; M25.562 Pain in left knee; G89.29 Other chronic pain; Z95.5 Presence of coronary angioplasty implant and graft; I25.10 Atherosclerotic heart disease of native coronary artery without angina pectoris; I10 Essential (primary) hypertension; I73.9 Peripheral vascular disease, unspecified; F03.90 Unspecified dementia, unspecified severity, without behavioral disturbance, psychotic disturbance, mood disturbance, and anxiety; K21.9 Gastro-esophageal reflux disease without esophagitis; Z85.3 Personal history of malignant neoplasm of breast; F41.9 Anxiety disorder, unspecified; F32.9 Major depressive disorder, single episode, unspecified; Z90.49 Acquired absence of other specified parts of digestive tract; Z87.891 Personal history of nicotine dependence; Z79.82 Long term (current) use of aspirin; Z79.899 Other long term (current) drug therapy; M17.12 Unilateral primary osteoarthritis, left knee; D63.8 Anemia in other chronic diseases classified elsewhere; I12.9 Hypertensive chronic kidney disease with stage 1 through stage 4 chronic kidney disease, or unspecified chronic kidney disease; E78.5 Hyperlipidemia, unspecified; G47.39 Other sleep apnea; J44.9 Chronic obstructive pulmonary disease, unspecified; E66.9 Obesity, unspecified; Z85.6 Personal history of leukemia; Z68.32 Body mass index [BMI] 32.0-32.9, adult
CPT/HCPCS: 36415; 70450; 71045; 73501; 73562; 80048; 81000; 85007; 85014; 85018; 85025; 85027; 86850; 86900; 86901; 86920; 87081; 94640; 94760

== ENCOUNTER 2020-09-07 08:48 | Inpatient (IN) | payer MEDICARE ==
[~2020-09-07] VITALS: Ht 157 cm; Wt 81.6 kg
[~2020-09-07 08:48] MED LIST changes: +ACHD5005 PO; +ACYC-112 PO; +CALC600T91 PO; +CITA20TA9 PO; +FEXO-46 PO; +FLUC100T6 PO; +FLUT1DIS26 IH; +LIPA1CAP70 PO; +MAGN400T39 PO; +MONT10TA32 PO; +PANT40TA52 PO; +POTA99TA17 PO; +PRED5DRO3 OU; +PROP10DR4 OP; +RIVA20TA PO; +SULF1TAB35 PO; +VENE100T PO
[2020-09-07] MEDS ORDERED: MELATONIN 3 MG TABLET PO PRN ×2 (09:15→10:15)
[2020-09-07] MEDS ORDERED: diphenhydrAMINE 25 MG TAB (BENADRYL) PO PRN (09:15)
[2020-09-07] MEDS ORDERED: LACTULOSE SYRUP 10GM/15ML (ENULOSE) 30ML UDC PO PRN (09:15)
[2020-09-07] MEDS ORDERED: DOCUSATE SODIUM 100 MG (COLACE) CAP PO PRN (09:15)
[2020-09-07] MEDS ORDERED: ALPRAZolam 0.25 MG (XANAX) TAB PO PRN (09:15)
[2020-09-07] MEDS ORDERED: guaiFENesin/CODEINE (ROBITUSSIN AC) 10ML UDC PO PRN (09:15)
[2020-09-07] MEDS ORDERED: ONDANSETRON 4 MG (ZOFRAN) ORAL DISSOLVE TAB PO PRN ×2 (09:15→10:15)
[2020-09-07] MEDS ORDERED: BISACODYL 10 MG SUPP (DULCOLAX) PR PRN ×2 (09:15→10:15)
[2020-09-07] MEDS ORDERED: FLEET ENEMA ADULT 1 EA BTL PR PRN (09:15)
[2020-09-07] MEDS ORDERED: CALCIUM CARBONATE 500 MG (TUMS) TAB.CHEW PO PRN (09:15)
[2020-09-07] MEDS ORDERED: ACETAMINOPHEN 325 MG TABLET PO PRN ×2 (09:15→10:15)
[2020-09-07 09:30] VITALS: BP 146/75
--- NOTE | 2020-09-07 10:08 | PM&R Post Admission Assessment ---
PM&R Date of Visit: Sep 07, 2020 Time of Visit: 10:15 History of Present Illness CC: Recovery from right hip fracture HPI: This is a 79yoWF clinic patient of Dr Carmona who presents to the IRF following an uncomplicated repair of the right hip fracture sustained in a fall at [facility] parking lot after she saw Dr Last. She lives at home alone. She reports the pain in the right hip is improved but increases with movement. She previously ambulated around without the use of AD. I have reviewed labs and imaging and clinical notes from med-surg. She has multiple medical issues including CLL, CAD, PVD and breast cancer. Past Uzetrge-Ubfpsb-Cbuvyc Hx Past Med/Social Hx: Reviewed Nursing Past Med/Soc Hx, Reviewed and Corrections made Patient Social History Marrital Status: single Employed/Student: retired Alcohol Use: Occasionally Uses Alcohol Beverage of Choice: Beer Smoking Status: Former Smoker Former Smoker, Quit: Feb 10, 2014 Type Used: Cigarettes 2nd Hand Smoke Exposure: No Recent Hopitalizations: No Immunizations Up To Date Tetanus Booster (TDap): More than 5yrs Date of Pneumonia Vaccine: Mar 11, 2015 Date of Influenza Vaccine: Feb 17, 2020 Seasonal Allergies Seasonal Allergies: Yes Past Medical History Surgeries: Breast, Coronary Stent, Orthopedic, Tonsillectomy, Vascular Surgery Respiratory: COPD Currently Using CPAP: Yes Currently Using BIPAP: No Cardiac: Coronary Artery Disease, Hypertension, Peripheral Vascular Neurological: Dementia Reproductive: No Sexually Transmitted Disease: No Female Reproductive Disorders: Denies Gastrointestinal: Gastroesophageal Reflux Musculoskeletal: Arthritis HEENT: Cataract Loss of Vision: Bilateral Hearing Impairment: Hard of Hearing Cancer: Leukemia, Breast Psychosocial: Anxiety, Depression History of Blood Disorders: No Adverse Reaction to Blood Henao: No Family History FHx: gastric ulcer 19 FATHER Stroke or transient ischemic attack in mother Noncontributory PM&R Allergy/Meds/Data Review Allergies Coded Allergies: No Known Drug Allergies (Verified , 05/03/16) Home Medications Scheduled Acyclovir (Acyclovir), 800 MG PO BID, (Reported) Aspirin (Aspirin EC), 81 MG PO DAILY, (Reported) Atenolol (Atenolol), 25 MG PO DAILY, (Reported) Atorvastatin Calcium (Atorvastatin Calcium), 40 MG PO HS, (Reported) Calcium Carbonate (Calcium), 600 MG PO DAILY, (Reported) Citalopram Hydrobromide (Citalopram HBr), 20 MG PO HS, (Reported) Donepezil HCl (Donepezil HCl), 10 MG PO DAILY, (Reported) Fexofenadine HCl (Fexofenadine HCl), 180 MG PO DAILY, (Reported) Fluconazole (Fluconazole), 100 MG PO DAILY, (Reported) Fluticasone/Salmeterol (Advair 250-50 Diskus), 1 EACH IH BID, (Reported) Lipase/Protease/Amylase (Zenpep Dr 40,000 Units Capsule), 1 EA PO 5XD- BEFORE MEALS AND SNACKS, (Reported) Losartan/Hydrochlorothiazide (Losartan-Hctz 100-25 mg Tab), 1 EACH PO DAILY, (Reported) Magnesium Oxide (Magnesium), 400 MG PO DAILY, (Reported) Montelukast Sodium (Montelukast Sodium), 10 MG PO HS, (Reported) [place] 3 Polyunsat Fatty Acids (Fish Oil 1,000 mg Capsule), 1,000 MG PO DAILY, (Reported) Pantoprazole Sodium (Pantoprazole Sodium), 40 MG PO DAILY, (Reported) Potassium Gluconate (Potassium Gluconate 595 MG), 99 MG PO DAILY, (Reported) Propylene Glycol/Peg 400 (Systane Gel Eye Drops), 1-2 DROPS OP HS, (Reported) Rivaroxaban (Xarelto), 20 MG PO HS, (Reported) Sulfamethoxazole/Trimethoprim (Bactrim Ds Tablet), 1 EA PO BID ON MON & FRI, (Reported) Venetoclax (Venclexta), 200 MG PO DAILY, (Reported) Scheduled PRN Hydrocodone/Acetaminophen (Hydrocodone-Acetamin 5-325 mg), 1 EA PO Q6H PRN for PAIN-MODERATE (5-7), (Reported) Discontinued Medications Acyclovir (Acyclovir), 400 MG PO BID, (Reported) Discontinued Reason: Duplicate Order Albuterol Sulfate (Albuterol Sulfate), 2.5 MG INH Q6H PRN for SHORTNESS OF BREATH, (Reported) Discontinued Reason: Duplicate Order Aspirin (Aspirin EC), 81 MG PO DAILY, (Reported) Discontinued Reason: Duplicate Order Calcium Carbonate/Vitamin D3 (Calcium + Vitamin D Tablet), 1 EACH PO BID, (Reported) Discontinued Reason: Duplicate Order Cetirizine HCl (All Day Allergy), 10 MG PO DAILY, (Reported) Discontinued Reason: Duplicate Order Citalopram Hydrobromide (Celexa), 20 MG PO DAILY, (Reported) Discontinued Reason: Duplicate Order Clopidogrel Bisulfate (Plavix), 75 MG PO DAILY, (Reported) Discontinued Reason: Duplicate Order Diphenhydramine HCl (Diphenhydramine HCl), 25 MG PO HS PRN for INSOMNIA, (Reported) Discontinued Reason: Duplicate Order Fluticasone Propionate (Flonase Allergy Relief), 1 SPRAY NS DAILY PRN for CONGESTION, (Reported) Discontinued Reason: Duplicate Order Gabapentin (Gabapentin), 100 MG PO Q6H PRN for pain Discontinued Reason: Duplicate Order Guaifenesin (Tussin), 20 ML PO Q8H PRN for COUGH, (Reported) Discontinued Reason: Duplicate Order Linaclotide (Linzess), 72 MCG PO DAILY PRN for CONSTIPATION-1ST LINE, (Reported) Discontinued Reason: Duplicate Order Loperamide HCl (Loperamide), 4 MG PO PRN PRN for DIARRHEA, (Reported) Discontinued Reason: Duplicate Order Magnesium Oxide (Magnesium), 250 MG PO BID, (Reported) Discontinued Reason: Duplicate Order Methylprednisolone (Methylprednisolone Dose Pack), 4 MG PO UD Discontinued Reason: Duplicate Order [place]-3 Fatty Acids/Fish Oil ([place] 3 Fish Oil Softgel), 2 EACH PO BID, (Reported) Discontinued Reason: Duplicate Order Omeprazole (Omeprazole), 40 MG PO DAILY, (Reported) Discontinued Reason: Duplicate Order Ondansetron HCl (Zofran), 8 MG PO Q8H PRN for NAUSEA/VOMITING-1ST LINE, (Reported) Discontinued Reason: Duplicate Order Peg 400/Hypromellose/Glycerin (Visine Dry Eye Relief Drop), 2 DROP OU PRN PRN for DRY EYES, (Reported) Discontinued Reason: Duplicate Order Potassium Gluconate (Potassium Gluconate), 500 MG PO HS, (Reported) Discontinued Reason: Duplicate Order Prednisolone Acetate (Pred Mild), 1 DROP OU TID, (Reported) Discontinued Reason: No Longer Taking Prednisone (Prednisone), 40 MG PO DAILY Discontinued Reason: Duplicate Order Tramadol HCl (Ultram), 50 MG PO Q6H PRN for PAIN-MODERATE (5-7) Discontinued Reason: Duplicate Order Current Medications Current Medications Reviewed Review of Systems Constitutional: see HPI, malaise, weakness EENTM: no symptoms reported Respiratory: no symptoms reported Cardiovascular: no symptoms reported Gastrointestinal: no symptoms reported Genitourinary: no symptoms reported Musculoskeletal: back pain, joint pain Skin: no symptoms reported Psychiatric/Neurological: Other (memory loss) All Other Systems Reviewed Negative Unless Noted: Yes Physical Exam Physical Exam Vital Signs Capillary Refill : Height, Weight, BMI Height: 5'3.00" Weight: 197lbs. 0.0oz. [id number]; 32.03 BMI Method:Estimated General Appearance: No Apparent Distress, WD/WN, Chronically ill Eyes: Bilateral Eye Normal Inspection, Bilateral Eye PERRL HEENT: PERRL/EOMI, Normal ENT Inspection, Pharynx Normal Neck: Full Range of Motion, Normal Inspection, Non Tender, Supple, Carotid Bruit Respiratory: Chest Non Tender, Lungs Clear, Normal Breath Sounds, No Accessory Muscle Use, No Respiratory Distress Cardiovascular: Regular Rate, Rhythm, No Edema, No Gallop, No JVD, No Murmur, Normal Peripheral Pulses Gastrointestinal: Normal Bowel Sounds, No Organomegaly, No Pulsatile Mass, Non Tender, Soft Back: Normal Inspection, No CVA Tenderness, No Vertebral Tenderness Extremity: Normal Capillary Refill, Normal Inspection, Normal Range of Motion (except right leg), Non Tender, No Calf Tenderness, No Pedal Edema Neurologic/Psychiatric: Alert, Oriented x3, No Motor/Sensory Deficits, Normal 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, 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 Norm as Tested, Disoriented, Motor Weakness (right lower extremity) Skin: Normal Color, Warm/Dry Lymphatic: No Adenopathy PM&R Medical Assessment & Plan REHAB/MEDICAL ASSESSMENT AND PLAN: REHAB IMPAIRMENT GROUP: Right hip fracture ETIOLOGIC DIAGNOSIS: Right hip fracture The comorbidities that impact the patients function and/or functional outcome by: dementia, PVD, CAD, fall, weakness REHAB PLAN: The patient is being admitted to our comprehensive inpatient rehabilitation facility and can tolerate the intensity of service consisting of at least: 180 minutes of therapy a day, 5 out of 7 days a week Rehab treatment will consist of: PT OT will focus on regaining ambulatory skills along with increased independence in ADL's and ST will help improve cognition The patient/family has a good understanding of our discharge process and will benefit from an interdisciplinary inpatient rehabilitation program. The patient has potential to make improvement and is in need of at least two of the following multidisciplinary therapies including but not limited to physical, occupational, speech, and prosthetics and orthotics. Additionally the patient will need services from respiratory, nutritional services, wound care, psychology, etc. (Customize this to each patient). Given the patients complex condition and risk of further medical complications, rehabilitation services cannot be safely or effectively provided at a lower level of care such as a residential facility. BARRIERS TO DISCHARGE: Dementia ESTIMATED LOS: 10 days DISPOSITION: Home RELEVANT CHANGES SINCE PREADMISSION SCREENING: I have compared the patients medical and functional status at the time of the preadmission screening and there are: no changes PROGNOSIS: Good REHABILITATION GOALS: 1. PT OT will focus on regaining ambulatory skills along with increased independence in ADL's and ST will help improve cognition All the above goals were reviewed with the patient and he/she is in agreement. By signing this document, I acknowledge that I have personally performed a full physical examination on this patient within 24 hours of admission to this inpatient rehabilitation facility and have determined the patient to be able to tolerate the above course of treatment at an intensive level for a reasonable period of time. I will be completing a detailed individualized Plan of Care for this patient by day #4 of the patients stay based upon the Preadmission Screen, the Post-Admission Evaluation, and the therapy evaluations. Admission Dx/Comorbidities: (1) Closed right hip fracture Status: Acute ICD Codes: S72.001A - Fracture of unspecified part of neck of right femur, initial encounter for closed fracture (2) Acute renal failure superimposed on chronic kidney disease Status: Acute ICD Codes: N17.9 - Acute kidney failure, unspecified; N18.9 - Chronic kidney disease, unspecified (3) Anemia of chronic disease Status: Acute ICD Codes: D63.8 - Anemia in other chronic diseases classified elsewhere (4) Left knee pain Status: Acute ICD Codes: M25.562 - Pain in left knee (5) Fall on same level Status: Acute ICD Codes: W18.30XA - Fall on same level, unspecified, initial encounter (6) Inflammatory arthropathy Status: Acute ICD Codes: M19.90 - Unspecified osteoarthritis, unspecified site (7) HLP (8) Abnormal stress test ICD Codes: R94.39 - Abnormal result of other cardiovascular function study (9) HTN (hypertension) ICD Codes: I10 - Essential (primary) hypertension (10) SOB (shortness of breath) ICD Codes: R06.02 - Shortness of breath (11) CAD (coronary artery disease) ICD Codes: I25.10 - Atherosclerotic heart disease of [place] coronary artery without angina pectoris Assessment/Plan Assessment and Plan Assess & Plan/Chief Complaint Assessment: Right hip fracture CLL Anemia of chronic disease CKD Stage 4 HTN HLP COPD PVD CAD Carotid stenosis Dementia Plan: IRF protocol Monitor closely Dementia monitoring EDWIGE SRINIVASAN DO Sep 07, 2020 10:08
[2020-09-07] MEDS ORDERED: ONDANSETRON 4 MG/2 ML (SDV) Z0FRAN IV PRN (10:15)
[2020-09-07] MEDS ORDERED: CATHETER FLUSH 10 ML SYR IV PRN (10:15)
[2020-09-07] MEDS ORDERED: LIPASE/AMYLASE/PROTEASE (PANCRELIPASE) 5,000 UNITS CAP PO PRN (10:15)
[2020-09-07] MEDS ORDERED: polyethylene glycoL POWDER 17 GM (MIRALAX) PACK PO PRN (10:15)
[2020-09-07] MEDS ORDERED: ANTACID SUSP 30 ML UDC (MYLANTA) PO PRN (10:15)
--- NOTE | 2020-09-07 11:04 | Physical Therapy Evaluation ---
PT Evaluation-General Medical Diagnosis Admission Date Sep 07, 2020 at 09:32 Medical Diagnosis: right hip fracture Onset Date: Sep 04, 2020 Therapy Diagnosis Therapy Diagnosis: debility/weakness Height/Weight Height (Feet): 5 Height (Inches): 3.00 Weight (Pounds): 197 Weight (Ounces): 0.0 Precautions Precautions/Isolations: Fall Prevention, Standard Precautions, Pressure Ulcer Weight Bear Status Right Lower Extremity: Right Weight Bearing/Tolerated Left Lower Extremity: Left Full Weight Bearing Referral Physician: David Reason for Referral: Evaluation/Treatment Medical History Pertinent Medical History: CAD, Dementia, HTN, PVD Current History s/p fall resulting in right hip fracture with Bipolar replacement Reviewed History: Yes Social History Home: Single Level Current Living Status: Spouse Entry Into Home: Stairs With Railing PT Steps Into Home: 4 Prior Prior Level of Function SCALE: Activities may be completed with or without assistive devices. 3-Xlfjbwidjw-igpblgs completes the activity by him/herself with no assistance from a helper. 5-Set-up or Clean-up Assistance-helper sets up or cleans up; patient completes activity. [place] assists only prior to or following the activity. 4-Supervision or Touching Assistance-helper provides verbal cues and/or touching/steadying and/or contact guard assistance as patient completes activity. Assistance may be provided throughout the activity or intermittently. 3-Partial/Moderate Assistance-helper does LESS THAN HALF the effort. [place] lifts, holds or supports trunk or limbs, but provides less than half the effort. 2-Substantial/Maximal Assistance-helper does MORE THAN HALF the effort. [place] lifts or holds trunk or limbs and provides more than half the effort. 2-Eqrbhyyjy-cakosu does ALL the effort. Patient does none of the effort to complete the activity. Or, the assistance of 2 or more helpers is required for the patient to complete the activity. If activity was not attempted, code reason: 7-Patient Refused. 9-Not Applicable-not attempted and the patient did not perform the activity before the current illness, exacerbation or injury. 10-Not Attempted due to Environmental Limitations-(lack of equipment, weather restraints, etc.). 88-Not Attempted due to Medical Conditions or Safety Concerns. Bed Mobility: 6 Transfers (B,C,W/C): 6 Gait: 6 Stairs: 6 Wheelchair Mobility: 9 Indoor Mobility (Ambulation): Independent Stairs: Independent Prior Devices Use: None PT Evaluation-Current Subjective Patient agrees to PT. Pain Numeric Pain Scale: 3 Location: Right Location Body Site: Hip Pain Description: Acute Objective Patient Orientation: Normal For Age Attachments: Oxygen (2L NC) ROM/Strength ROM Lower Extremities right hip precautions (reviewed)/left LE WFL Strength Lower Extremities right LE 3+/5 grossly/left LE 4/5 grossly Integumentary/Posture Integumentary refer to nursing notes Bowel Incontinence: Yes Bladder Incontinence: Yes Posture WFL Neuromuscular (Tone, Coordination, Reflexes) grossly intact Sensory Vision: Wears Glasses Hearing: Hearing Aid/Aides Sensation Right Lower Extremit: Intact Sensation Left Lower Extremity: Intact Transfers Roll Left & Right (QC): 3 Sit to Lying (QC): 3 Lying to Sitting/Side of Bed(Q: 3 Sit to Stand (QC): 3 Chair/Rdo-dy-Hhomc Xfer(QC): 3 Toilet Transfer (QC): 3 Car Transfer (QC): 3 Gait Does the Patient Walk?: Yes Mode of Locomotion: Walk Anticipated Mode of Locomotion: Walk Walk 10 feet (QC): 3 Walk 50 ft with 2 Turns(QC): 3 Walk 150 ft (QC): 3 Walking 10ft/uneven surface-QC: 3 Distance: 200' x 4/50' x 3 Gait Assistive Device: FWW Comments/Gait Description slow, steady, antalgic gait sequence Wheelchair Training Does the Pt Use a Wheelchair?: No Wheel 50 ft with 2 turns (QC): 9 Wheel 150 ft (QC): 9 Type of Wheelchair: N/A Stairs #of Steps: 4 1 Step (curb) (QC): 3 4 Steps (QC): 3 12 Steps (QC): 9 Walking Assistive Device: Walker Balance Sitting Static: Normal Sitting Dynamic: Normal Standing Static: Good Standing Dynamic: Good Picking up an Object (QC): 3 (with device and assistance of use) Treatment Patient gait training minimal assist with FWW 200' x 4/50' x 3 with seated recovery periods due to fatigue. O2 2L NC in place with SAO2 remaining >90%. Patient able to toilet self on raised commode over toilet. Patient performed bilateral seated exercises 15 reps x 2 sets AP and LAQ. Assessment/Needs 79 y.o. female, will benefit from skilled PT to address functional strength and mobility to improve current LOF to safely return to home with spouse and home health at maximum LOF. Rehab Potential: Fair PT Long-Term Goals Rotary Soil Stabilizer Operator Goals PT Rotary Soil Stabilizer Operator Goals Time Frame: September 29, 2020 Roll Left & Right (QC): 6 Sit to Lying (QC): 6 Lying-Sitting on Side/Bed(QC): 6 Sit to Stand (QC): 6 Chair/Zog-jy-Zfxev Xfer(QC): 6 Toilet Transfer (QC): 6 Car Transfer (QC): 6 Does the Patient Walk: Yes Walk 10 feet (QC): 6 Walk 50ft with 2 Turns (QC): 6 Walk 150 ft (QC): 6 Walking 10ft on Uneven Surface: 6 1 Step (curb) (QC): 6 4 Steps (QC): 6 12 Steps (QC): 9 Picking up an Object (QC): 6 Does the Pt use WC or Scooter?: No Wheel 50 feet with 2 turns (QC: 9 Type: N/A Wheel 150 feet: 9 Type: N/A PT Plan Problem List Problem List: Activity Tolerance, Functional Strength, Safety, Balance, Gait, Transfer, Bed Mobility Treatment/Plan Treatment Plan: Continue Plan of Care Treatment Plan: Bed Mobility, Concurrent Therapy, Education, Functional Activity Johan, Functional Strength, Group Therapy, Gait, Safety, Therapeutic Exercise, Transfers Treatment Duration: September 29, 2020 Frequency: At least 5 of 7 days/Wk (IRF) Estimated Hrs Per Day: 1.5 hours per day Patient and/or Family Agrees t: Yes Discharge Recommendations Therapy Discharge Recommendati: Home & Family, Post Acute PT Time/GCodes Time In: 900 Time Out: 1000 Total Billed Treatment Time: 60 Total Billed Treatment 1 visit EVModC 23 min GT 22 min FA 15 min MERI DÍAZ PT Sep 07, 2020 11:04
[2020-09-07] MEDS: HYDROcodone/APAP 5 MG/325 MG (LORTAB) TAB PO PRN (13:26)
--- NOTE | 2020-09-07 13:37 | Occupational Therapy Eval ---
OT Evaluation-General/PLF Medical Diagnosis Admission Date Sep 07, 2020 at 09:32 Medical Diagnosis: right hip fracture Onset Date: Sep 04, 2020 Therapy Diagnosis Therapy Diagnosis: R CAROL; debility Height/Weight Height (Feet): 5 Height (Inches): 3.00 Weight (Pounds): 197 Weight (Ounces): 0.0 Precautions Precautions/Isolations: Fall Prevention, Standard Precautions, Pressure Ulcer Referral Physician: David Referral Reason: Activity Tolerance, Self Care, Evaluation/Treatment, Strengthening/ROM Medical History Pertinent Medical History: CAD, Dementia, HTN, PVD Additional Medical History CAD, HTN, PVD, dementia, GERD, arthritis, [place], anxiety/ depression Current History Pt fell backwards when ambulating in parking lot without AD, R hip fx with R CAROL. Bipolar, hip precautions. Reviewed History: Yes Social History Home: Single Level Current Living Status: Spouse Entry Into Home: Stairs With Railing Steps Into Home: 4 ADL-Prior Level of Function SCALE: Activities may be completed with or without assistive devices. 5-Yktjknbeol-fdkztsz completes the activity by him/herself with no assistance from a helper. 5-Set-up or Clean-up Assistance-helper sets up or cleans up; patient completes activity. [place] assists only prior to or following the activity. 4-Supervision or Touching Assistance-helper provides verbal cues and/or touching/steadying and/or contact guard assistance as patient completes activity. Assistance may be provided throughout the activity or intermittently. 3-Partial/Moderate Assistance-helper does LESS THAN HALF the effort. [place] lifts, holds or supports trunk or limbs, but provides less than half the effort. 2-Substantial/Maximal Assistance-helper does MORE THAN HALF the effort. [place] lifts or holds trunk or limbs and provides more than half the effort. 6-Ejauxgsni-skxqic does ALL the effort. Patient does none of the effort to complete the activity. Or, the assistance of 2 or more helpers is required for the patient to complete the activity. If activity was not attempted, code reason: 7-Patient Refused. 9-Not Applicable-not attempted and the patient did not perform the activity bef ore the current illness, exacerbation or injury. 10-Not Attempted due to Environmental Limitations-(lack of equipment, weather r estraints, etc.). 88-Not Attempted due to Medical Conditions or Safety Concerns. ADL PLOF Comments Expresses IND in home with use of cane at times (typically furniture walks), uses walking cane outdoors, states hx of multiple falls. Self Care: Independent Functional Cognition: Independent DME/Equipment: Bath Chair, Shower Hose Family Manager, Tub/Shower DME/Equipment Comments tub/ shower, sc in shower, no gbs, low stool (will require BSC). Occupation: retired Drive Self: No OT Current Status Subjective Pt AxO, slight confusion at times requiring multiple cues/ repetition. Pt states 7/10 pain in R hip when up, 0/10 when resting. Pt agrees to eval/ treat in room. Pt desires shower. Mental Status/Objective Patient Orientation: Person, Place, Situation Attachments: Oxygen (2L) Current Glasses/Contacts: Yes Hearing Aids: Yes (R only) Dentures/Partials: Yes Hand Dominance: Right Upper Extremity ROM WFL BUE Upper Extremity Coordination WFL BUE Upper Extremity Sensation WFL BUE Upper Extremity Strength WFL BUE ADL-Treatment Eating (QC): 6 Oral Hygiene (QC): 4 (SBA in stance at sink) Shower/Bathe Self (QC): 3 (min A with feet, educated on long handled sponge, able to complete with cues for maintenance for hip precautions.) Upper Body Dressing (QC): 5 (s/u) Lower Body Dressing (QC): 2 (max A for threading BLE. Pt able to meat puller hips in stance with CGA- decreased stance/ slight LOB and able to right in shower.) On/Off Footwear (QC): 1 (TD bilaterally. Educated on sock aide with good ability with multiple trials (completes BLE 2x with min cues)) Toileting Hygiene (QC): 4 (CGA in stance.) Other Treatments [id number] (70): 1, EVM (10), ADL 4 (60) Pt in chair upon entry. AxO, states no pain in sit. Pt completes evaluation: lives at home with spouse with no assist during ADLs, though furniture walks/ uses walking cane outdoors. Pt states multiple falls, and hx of falling backward. Pt pleasant throughout. Pt states 3/3 precautions. Sit to stands with SBA-CGA, ambulation with walker to shower, shower transfer CGA. Pt and OT go through AE prior to doffing pants, able to utilize dressing stick for doffing over feet. Pt showers with SBA (cues for no bending past 90, however, expresses she "need to see my knee, I think there is a bandaide on it," and bends. Pt is educated on this is a break in precautions, pt automatically corrects and does not require cues rest of session)/ dresses in shower with increased time. Pt educated on use of fertilizer applicator for pants and sock aide for socks (demonstrated at separate tx session). Pt in recliner end of session with all needs met, call light in reach, pt's daughter present. [id number] (20): 1, ADL (20) Pt AxO. Seen in bathroom on BSC. BM completed, completes self cleansing in stance with CGA. Pt demo's fair balance. Pt ambulates with walker to wash hands with SBA. Returns to recliner. Educated on use of sock aide/ dressing stick for sock doff/ donning. Pt is demonstrated this task, then completes 2x per LE. Pt expresses "it's much easier." Pt able to state the purpose/ role of the following: fertilizer applicator, sock aide, dressing stick. Pt able to restate precautions. Left in recliner with all needs met, call light in reach. Education OT Patient Education: Correct positioning, Modified ADL techniques, Purpose of tx/functional activities, Reviewed precautions, Rehab process, Safety issues, Transfer techniques, Use of adapted equipment Teaching Recipient: Patient Teaching Methods: Demonstration, Discussion Response to Teaching: Verbalize Understanding, Return Demonstration, Reinforcement Needed OT Short Term Goals Short Term Goals Oral hygiene: 6 Toileting hygiene: 6 Shower/bathe self: 5 Upper body dressin Lower body dressin Putting on/taking off footwear: 4 OT Fdc Goals Fdc Goals Time Frame: September 21, 2020 Eating (QC): 6 Oral Hygiene (QC): 6 Toileting Hygiene (QC): 6 Shower/Bathe Self (QC): 6 Upper Body Dressing (QC): 6 Lower Body Dressing (QC): 6 On/Off Footwear (QC): 6 Additional Goals: 1-Demonstrate ADL Tasks, 2-Verbalize Understanding, 3- ImproveStrength/Johan 1=Demonstrate adherence to instructed precautions during ADL tasks. 2=Patient will verbalize/demonstrate understanding of assistive devices/modifications for ADL. 3=Patient will improve strength/tolerance for activity to enable patient to perform ADL's. OT Education/Plan Problem List/Assessment Assessment: Decreased Activ Tolerance, Dependent Transfers, Impaired Cognition, Impaired Funct Balance, Impaired I ADL's, Impaired Self-Care Skills Discharge Recommendations Plan/Recommendations: Continue POC Therapy Discharge Recommendati: Home & Family, Post Acute OT Equpiment Recommendations-D/C: Extended Bath Bench, Bedside Commode, Hip Kit, Long Shoe Horn, Elastic Shoe Laces Treatment Plan/Plan of Care Treatment,Training & Education: Yes Patient would benefit from OT for education, treatment and training to promote independence in ADL's, mobility, safety and/or upper extremity function for ADL's. Plan of Care: ADL Retraining, Caregiver Training, Functional Mobility, Group Exercise/Act as Ind, UE Funct Exercise/Act Treatment Duration: September 21, 2020 Frequency: At least 5 of 7 days/Wk (IRF) Estimated Hrs Per Day: 1.5 hours per day Agreement: Yes Rehab Potential: Fair Time/GCodes Start Time: 11:00 (1305) Stop Time: 12:10 (1325) Total Time Billed (hr/min): 90 Billed Treatment Time [id number] (70): 1, EVM (10), ADL 4 ((60)= 70 [id number] (20): 1, ADL (20) Total: 90 BERENICE LOWRY OTR Sep 07, 2020 13:37
--- NOTE | 2020-09-07 13:42 | ST Cognitive Linguistic Eval ---
Speech Evaluation-General Medical Diagnosis right hip fracture Onset Date: Sep 04, 2020 Therapy Diagnosis Therapy Diagnosis: Cognitive-communication Referral Referring Physician: Dr. Hernandez Medical History Pertinent Medical History: CAD, Dementia, HTN, PVD Reviewed History: Yes Social History Current Living Status: Spouse Speech PLF-Current Status Prior Level of Function Patient lived at home with her where she was independent for much of her daily needs. Subjective Patient was pleasant and cooperative with the cognitive assessment. Language Eval: Auditory Comprehends Simple Yes/No Ques: Functional Indent/Objects Multiple Le: Functional Ident/Pics in Multiple Le: Functional Follows 1-Step Commands: Functional Follows Complex Directions: Mild Follows General Conversations: Functional Language Eval: Verbal Language Completes Spontaneous Greeting: Functional Produces Auto, Serial Info: Functional Imitates Simple Words/Phrases: Functional Word Finding: Functional Requests Basic Needs: Functional States Basic Personal Info: Functional Expresses Complex Ideas: Mild Objective Cognitive Domain Attention: WNL Memory: Mild Problem Solving: Mild Executive Functions: Mild Visuospatial Skills: WNL Composite Severity Rating: Mild Clock Drawing Severity Rating: Mild Objective Formal/Standardized Tests [facility] Mental Status ([facility]) Results 23/30, Mild Neurocognitive Disorder Oral Motor/Speech Production Within Normal Limits Impression Patient is a pleasant 79 y/o female who was admitted to the ARU s/p hip fracture. Patient was given the [facility] at bedside with a score of 23/30 obtained. This score indicates a need for skilled services to improve cognitive function so that she may return home safer. Patient's therapy will focus on memory, safety awareness and problem solving. Speech Patient Assess Expression of Ideas/Wants: Exhibits (3) Understanding Verbal Content: Usually Understands (3) Brief Interview-Mental Status: Yes Repetition of Three Words: Three (3) Temporal Orientation: Year: Correct (3) Temporal Orientation: Month: Accurate within 5 days(2) Temporal Orientation: Day: Correct (1) Recall : Wear to say "Sock": Yes,after cueing (1) Recall : Color: Yes, after cueing (1) Recall : Bed: Yes,after cueing (1) Memory/Recall Ability: Current season, That he or she is in a hsp/hsp unit Speech Short Term Goals Short Term Goals Short Term Goals 1) Patient will complete memory tasks related to her daily needs at 80% with minimal cuing. 2) Patient will complete safety awareness tasks related to her daily needs at 80 % with minimal cuing. 3) Patient will complete problem solving tasks related to her daily needs at 80% with minimal cuing. Speech Assisted Goals Assisted Goals Patient will improve cognitive-communication abilities in order to complete daily living tasks with minimal assist. Speech-Plan Patient/Family Goals Patient/Family Goals: Patient plans on returning to her home where she lives with her . Treatment Plan Speech Therapy Treatment Plan: Continue Plan of Care Treatment Duration: September 21, 2020 Frequency: 4 times per week (Patient will receive skilled ST 4-5x per week) Estimated Hrs Per Day: .5 hour per day Rehab Potential: Fair Barriers to Learning: Patient's decreased cognitive function, age Pt/Family Agrees to Plan: Yes Safety Risks/Education Teaching Recipient: Patient Teaching Methods: Discussion Response to Teaching: Verbalize Understanding Education Topics Provided: Safety within her room, utilization of the call light, communication of wants/needs Time Speech Therapy Time In: 13:30 Speech Therapy Time Out: 14:00 Total Billed Time: 30 Billed Treatment Time 1TRACEE SPSNDCOMP No WH[place]ON, BETHANIA ST Sep 07, 2020 13:42
[2020-09-07] MEDS: RIVAROXABAN 20 MG TABLET (XARELTO) PO SCH (16:42)
[2020-09-07] MEDS: DOCUSATE SODIUM 100 MG (COLACE) CAP PO SCH (19:55)
[2020-09-07] MEDS: SENNOSIDES 8.6 MG (SENOKOT) TAB PO SCH (19:55)
[2020-09-07] MEDS: SENNA W/DOCUSATE (SENOKOT S) TABLET PO SCH (19:55)
[2020-09-07] MEDS: polyethylene glycoL POWDER 17 GM (MIRALAX) PACK PO SCH (19:55)
[2020-09-07 20:00] VITALS: BP 159/78
[2020-09-07] MEDS ORDERED: DOCUSATE SODIUM 100 MG (COLACE) CAP PO SCH (21:00)
[2020-09-07] MEDS ORDERED: PATIENT'S OWN MED (RX USE ONLY) IH SCH (21:00)
[2020-09-07] MEDS: MONTELUKAST 10 MG (SINGULAIR) TAB PO SCH (21:18)
[2020-09-07] MEDS: ACYCLOVIR 400 MG TABLET (ZOVIRAX) PO SCH (21:18)
[2020-09-08 05:57] LABS: BASOPHILS % (AUTO) 0 % (0-10); EOSINOPHILS % (AUTO) 0 % (0-10); HEMATOCRIT 32 % (35-52); LYMPHOCYTES # (AUTO) 0.5 10^3/uL (1.0-4.0); LYMPHOCYTES % (AUTO) 7 % (12-44); MEAN CORPUSCULAR HEMOGLOBIN 28 pg (25-34); MEAN CORPUSCULAR HGB CONC 32 g/dL (32-36); MEAN CORPUSCULAR VOLUME 89 fL (80-99); MEAN PLATELET VOLUME 9.8 fL (9.0-12.2); MONOCYTES # (AUTO) 0.9 10^3/uL (0.0-1.0); MONOCYTES % (AUTO) 15 % (0-12); NEUTROPHILS # (AUTO) 4.8 10^3/uL (1.8-7.8); NEUTROPHILS % (AUTO) 77 % (42-75); PLATELET COUNT 166 10^3/uL (130-400); WHITE BLOOD COUNT 6.2 10^3/uL (4.3-11.0)
[2020-09-08] MEDS: HYDROcodone/APAP 5 MG/325 MG (LORTAB) TAB PO PRN (06:07)
[2020-09-08 06:21] LABS: CREATININE SERUM 1.02 MG/DL (0.60-1.30); POTASSIUM 4.3 MMOL/L (3.6-5.0)
[2020-09-08 06:22] LABS: ALBUMIN 3.3 GM/DL (3.2-4.5); BILIRUBIN,TOTAL 0.5 MG/DL (0.1-1.0); CALCIUM 7.5 MG/DL (8.5-10.1)
[2020-09-08] MEDS: polyethylene glycoL POWDER 17 GM (MIRALAX) PACK PO SCH ×2 (08:35→16:38)
[2020-09-08] MEDS: DOCUSATE SODIUM 100 MG (COLACE) CAP PO SCH ×2 (08:35→16:38)
[2020-09-08] MEDS: SENNA W/DOCUSATE (SENOKOT S) TABLET PO SCH ×2 (08:36→16:38)
[2020-09-08] MEDS: SENNOSIDES 8.6 MG (SENOKOT) TAB PO SCH ×2 (08:36→16:38)
[2020-09-08 09:00] VITALS: BP 170/70
[2020-09-08] MEDS: LORATADINE (CLARITIN) 10 MG TAB PO SCH (09:51)
[2020-09-08] MEDS: DONEPEZIL 10 MG (ARICEPT) TAB PO SCH (09:51)
[2020-09-08] MEDS: PANTOPRAZOLE 40 MG (PROTONIX) TAB PO SCH (09:51)
[2020-09-08] MEDS: fluCOnazole (DIFLUCAN) 100 MG TAB PO SCH (09:51)
[2020-09-08] MEDS: ATENOLOL 25 MG (TENORMIN) TAB PO SCH (09:51)
[2020-09-08] MEDS: ACYCLOVIR 400 MG TABLET (ZOVIRAX) PO SCH ×2 (09:52→21:14)
--- NOTE | 2020-09-08 10:10 | Physical Therapy Daily Note ---
PT Daily Note-Current Subjective Pt sitting in recliner sleeping upon arrival. Pt informs DIGITAL CONTENT PRODUCER that pt feels slightly confused. Pt requests to return to bed after using the bathroom. Pain Numeric Pain Scale: 0-No Pain Location: No Pain Reported Mental Status Patient Orientation: Person, Confused, Place, Situation Attachments: [place] Lock, SCD's (Have SCD's but no machine in room to hook them up; Nursing aware), Oxygen (2L NC) Transfers SCALE: Activities may be completed with or without assistive devices. 9-Avxxowsdcg-innjsab completes the activity by him/herself with no assistance from a helper. 5-Set-up or Clean-up Assistance-helper sets up or cleans up; patient completes activity. [place] assists only prior to or following the activity. 4-Supervision or Touching Assistance-helper provides verbal cues and/or mohit parminder/steadying and/or contact guard assistance as patient completes activity. Assistance may be provided throughout the activity or intermittently. 3-Partial/Moderate Assistance-helper does LESS THAN HALF the effort. [place] lifts, holds or supports trunk or limbs, but provides less than half the effort. 2-Substantial/Maximal Assistance-helper does MORE THAN HALF the effort. [place] lifts or holds trunk or limbs and provides more than half the effort. 0-Sbntpyigp-uqchwt does ALL the effort. Patient does none of the effort to complete the activity. Or, the assistance of 2 or more helpers is required for the patient to complete the activity. If activity was not attempted, code reason: 7-Patient Refused. 9-Not Applicable-not attempted and the patient did not perform the activity before the current illness, exacerbation or injury. 10-Not Attempted due to Environmental Limitations-(lack of equipment, weather restraints, etc.). 88-Not Attempted due to Medical Conditions or Safety Concerns. Sit to Lying (QC): 4 Sit to Stand (QC): 4 Toilet Transfer (QC): 4 Weight Bearing Right Lower Extremity: Right Weight Bearing/Tolerated Left Lower Extremity: Left Full Weight Bearing Gait Training Does the Patient Walk?: Yes Walk 10 feet (QC): 4 Gait Assistive Device: FWW Pt ambulates to/from bathroom using FWW at [facility] Treatments Pt completes sit<>stand from recliner using FWW w/ CGA. Pt ambulates to bathroom w/ FWW at CGA. Pt stands unsupported to doff/don LE clothing; pt toilet transfers w/ supervision. Pt stands unsupported at bathroom sink to wash/dry hands/ Pt ambulates to bed using FWW w/ CGA. Pt completes sitting to supine w/ supervision. Pt in bed w/ call light and bedside table w/in reach and all needs met at end of tx. Assessment Current Status: Good Progress Pt slightly confused this AM, but is doing well. PT Customer Relations Coordinator Goals Customer Relations Coordinator Goals PT Skilled Nursing Goals Time Frame: September 29, 2020 Roll Left & Right (QC): 6 Sit to Lying (QC): 6 Lying-Sitting on Side/Bed(QC): 6 Sit to Stand (QC): 6 Chair/Asj-xv-Lkmpf Xfer(QC): 6 Toilet Transfer (QC): 6 Car Transfer (QC): 6 Does the Patient Walk: Yes Walk 10 feet (QC): 6 Walk 50ft with 2 Turns (QC): 6 Walk 150 ft (QC): 6 Walking 10ft on Uneven Surface: 6 1 Step (curb) (QC): 6 4 Steps (QC): 6 12 Steps (QC): 9 Picking up an Object (QC): 6 Does the Pt use WC or Scooter?: No Wheel 50 feet with 2 turns (QC: 9 Type: N/A Wheel 150 feet: 9 Type: N/A PT Plan Problem List Problem List: Activity Tolerance, Functional Strength, Safety, Balance, Gait, T ransfer, Bed Mobility Treatment/Plan Treatment Plan: Continue Plan of Care Treatment Plan: Bed Mobility, Concurrent Therapy, Education, Functional Activity Johan, Functional Strength, Group Therapy, Gait, Safety, Therapeutic Exercise, Transfers Treatment Duration: September 29, 2020 Frequency: At least 5 of 7 days/Wk (IRF) Estimated Hrs Per Day: 1.5 hours per day Patient and/or Family Agrees t: Yes Safety Risks/Education Patient Education: Gait Training, Safety Issues Teaching Recipient: Patient Teaching Methods: Discussion Response to Teaching: Verbalize Understanding Time/GCodes Time In: 0940 Time Out: 1003 Total Billed Treatment Time: 23 Total Billed Treatment 1, FAx2 (23m) KATY ANDRE DIGITAL CONTENT PRODUCER September 08, 2020 10:10
--- NOTE | 2020-09-08 10:42 | PM&R Progress Note ---
Subjective HPI/CC On Admission Date Seen by Provider: September 08, 2020 Time Seen by Provider: 10:45 Subjective/Events-last exam 09/08/20: Patient doing well Memory loss noted Hgb 10 SLUMS Eduar intact Eating well BM+ Startles easily Review of Systems General: Malaise Musculoskeletal: leg pain Neurological: Confusion Objective Exam Vital Signs Vital Signs Date Time Temp Pulse Resp B/P (MAP) Pulse Ox O2 Delivery O2 Flow Rate FiO2 09/08/20 09:00 36.0 60 18 170/70 (103) 98 Nasal Cannula 2.00 Capillary Refill : General Appearance: No Apparent Distress, WD/WN, Chronically ill HEENT: PERRL/EOMI, Normal ENT Inspection, Pharynx Normal Neck: Full Range of Motion, Normal Inspection, Non Tender, Supple, Carotid Bruit Respiratory: Chest Non Tender, Lungs Clear, Normal Breath Sounds, No Accessory Muscle Use, No Respiratory Distress Cardiovascular: Regular Rate, Rhythm, No Edema, No Gallop, No JVD, No Murmur, Normal Peripheral Pulses Gastrointestinal: Normal Bowel Sounds, No Organomegaly, No Pulsatile Mass, Non Tender, Soft Back: Normal Inspection, No CVA Tenderness, No Vertebral Tenderness Extremity: Normal Capillary Refill, Normal Inspection, Normal Range of Motion (except right leg), Non Tender, No Calf Tenderness, No Pedal Edema Neurologic/Psychiatric: Alert, Oriented x3, No Motor/Sensory Deficits, Normal Mood/Affect, wood tool maker II-XII Norm as Tested, Disoriented, Motor Weakness (right lower extremity) Skin: Normal Color, Warm/Dry Lymphatic: No Adenopathy Results/Procedures Lab Laboratory Tests 09/08/20 05:30 Patient resulted labs reviewed. FIM Transfers Therapy Code Descriptions/Definitions Functional [place] Measure: 0=Not Assessed/NA 4=Minimal Assistance 1=Total Assistance 5=Supervision or Setup 2=Maximal Assistance 6=Modified [place] 3=Moderate Assistance 7=Complete IndependenceSCALE: Activities may be completed with or without assistive devices. 9-Nhklmgrdjq-ugypasd completes the activity by him/herself with no assistance from a helper. 5-Set-up or Clean-up Assistance-helper sets up or cleans up; patient completes activity. [place] assists only prior to or following the activity. 4-Supervision or Touching Assistance-helper provides verbal cues and/or touching/steadying and/or contact guard assistance as patient completes acti vity. Assistance may be provided throughout the activity or intermittently. 3-Partial/Moderate Assistance-helper does LESS THAN HALF the effort. [place] lifts, holds or supports trunk or limbs, but provides less than half the effort. 2-Substantial/Maximal Assistance-helper does MORE THAN HALF the effort. [place] lifts or holds trunk or limbs and provides more than half the effort. 1-Lhyqzcjrs-ukpbcc does ALL the effort. Patient does none of the effort to complete the activity. Or, the assistance of 2 or more helpers is required for the patient to complete the activity. If activity was not attempted, code reason: 7-Patient Refused. 9-Not Applicable-not attempted and the patient did not perform the activity before the current illness, exacerbation or injury. 10-Not Attempted due to Environmental Limitations-(lack of equipment, weather restraints, etc.). 88-Not Attempted due to Medical Conditions or Safety Concerns. Roll Left to Right (QC): 3 Sit to Lying (QC): 4 Sit to Stand (QC): 4 Chair/Mif-fj-Ukdng Xfer(QC): 3 Car Transfer (QC): 3 Gait Training Does the Patient Walk?: Yes Walk 10 feet (QC): 4 Walk 50 ft with 2 Turns(QC): 3 Walk 150 ft (QC): 3 Walking 10ft/uneven surface-QC: 3 Gait Assistive Device: FWW Wheelchair Training Does the Pt Use a Wheelchair?: No Wheel 50 ft with 2 turns (QC): 9 Wheel 150 ft (QC): 9 Type of Wheelchair: N/A Stair Training #of Steps: 4 1 Step (curb) (QC): 3 4 Steps (QC): 3 12 Steps (QC): 9 Balance Picking up an Object (QC): 3 (with device and assistance of use) ADL-Treatment Eating (QC): 6 Oral Hygiene (QC): 4 (SBA in stance at sink) Shower/Bathe Self (QC): 3 (min A with feet, educated on long handled sponge, able to complete with cues for maintenance for hip precautions.) Upper Body Dressing (QC): 5 (s/u) Lower Body Dressing (QC): 2 (max A for threading BLE. Pt able to seedling puller hips in stance with CGA- decreased stance/ slight LOB and able to right in shower.) On/Off Footwear (QC): 1 (TD bilaterally. Educated on sock aide with good ability with multiple trials (completes BLE 2x with min cues)) Toileting Hygiene (QC): 4 (CGA in stance.) Assessment/Plan Assessment and Plan Assess & Plan/Chief Complaint Assessment: Right hip fracture CLL Anemia of chronic disease CKD Stage 4 HTN HLP COPD PVD CAD Carotid stenosis Dementia Plan: IRF protocol Monitor closely Dementia monitoring 09/08/20: Monitor closely Monitor confusion (1) Closed right hip fracture Status: Acute (2) Acute renal failure superimposed on chronic kidney disease Status: Acute (3) Anemia of chronic disease Status: Acute (4) Left knee pain Status: Acute (5) Fall on same level Status: Acute (6) Inflammatory arthropathy Status: Acute (7) HLP (8) Abnormal stress test (9) HTN (hypertension) (10) SOB (shortness of breath) (11) CAD (coronary artery disease) EDWIGE SRINIVASAN DO September 08, 2020 10:42
--- NOTE | 2020-09-08 10:42 | Individualized Plan of Care ---
Individualized Plan of Care Rehab Nursing IPOC Order Admission Date Sep 07, 2020 at 09:32 Current Orders Orders Admission Order(Inpt,Obs,Sdc) (09/07/20 09:08) Vishal Quintero (09/07/20 09:08) Sequential Compression Device .admit (09/07/20 09:08) Casting Inspector-Inpt Rehab Con (09/07/20 09:08) Rehab Nursing Orders-Ipoc (09/07/20 09:08) Physical Therapy Rehab Orders (09/07/20 09:08) Occupational Therapy Rehab Ord (09/07/20 09:08) Speech Therapy Rehab Orders (09/07/20 09:08) Cbc With Automated Diff (09/08/20 06:00) Comprehensive Metabolic Panel (09/08/20 06:00) Precautions (Aru) (09/07/20 09:08) Weekly Weight WEEK (09/07/20 09:08) Rehab-Intensity Of Therapy (09/07/20 09:08) Initiate Admission Nursing Pro .admission (09/07/20 09:08) Acetaminophen Tablet/Caplet (Tylenol T (09/07/20 09:15) Alprazolam Tablet (Xanax Tablet) (09/07/20 09:15) Calcium Carbonate Chew Tablet (Antacid C (09/07/20 09:15) Diphenhydramine Tablet (Benadryl Tablet) (09/07/20 09:15) Docusate Sodium Capsule (Colace Capsule) (09/07/20 21:00) Docusate Sodium Capsule (Colace Capsule) (09/07/20 09:15) Bisacodyl Suppository (Dulcolax Supposit (09/07/20 09:15) Lactulose Oral Solution (Enulose Oral So (09/07/20 09:15) Na Phos/Na Biphos Enema (Fleet Enema Darrin (09/07/20 09:15) Guaifenesin/Codeine Syrup (Robitussin Ac (09/07/20 09:15) Hydrocodone/Apap 5/325 Tablet (Lortab 5 (09/07/20 09:15) Loperamide Tablet (Imodium Tablet) (09/07/20 09:15) Melatonin Tablet (Melatonin Tablet) (09/07/20 09:15) Polyethylene Glycol Powder Pkt (Miralax (09/07/20 21:00) Ondansetron Oral Dissolve Tab (Zofran (09/07/20 09:15) Senna S Tablet (Senokot S Tablet) (09/07/20 21:00) Initiate Admission Nursing Pro .admission (09/07/20 09:08) Transfer - Bed/Room/Location (09/07/20 09:32) Code/Resuscitation (09/07/20 10:08) Catheter(Urinary) Discontinue (09/07/20 10:08) Incentive Spirometry (Nursing) Q2H (09/07/20 10:08) Sodium 2g (2000 Mg) (09/07/20 Lunch) (Nf) Venetoclax (Venclexta) (09/08/20 08:00) Acyclovir Capsule/Tablet (Zovirax Caps (09/07/20 21:00) Atenolol Tablet (Tenormin Tablet) (09/08/20 09:00) Atorvastatin Tablet (Lipitor) (09/07/20 21:00) Citalopram Tablet (Celexa Tablet) (09/07/20 21:00) Docusate Sodium Capsule (Colace Capsule) (09/07/20 21:00) Donepezil Tablet (Aricept Tablet) (09/08/20 09:00) Bisacodyl Suppository (Dulcolax Supposit (09/07/20 10:15) Fluconazole Tablet (Diflucan Tablet) (09/08/20 09:00) Lipase/Amylase/Protease Caps (Pancrelipa (09/07/20 10:15) Loratadine Tablet (Claritin Tablet) (09/08/20 09:00) Melatonin Tablet (Melatonin Tablet) (09/07/20 10:15) Polyethylene Glycol Powder Pkt (Miralax (09/07/20 10:15) Montelukast Tablet (Singulair Tablet) (09/07/20 21:00) Antacid Suspension (Mylanta Suspension (09/07/20 10:15) Pantoprazole Tablet (Protonix Tablet) (09/08/20 09:00) Patient's Own Med(Rx Use Only) (Patient' (09/07/20 21:00) Rivaroxaban Tablet (Xarelto Tablet) (09/07/20 17:00) Sennosides Tablet (Senokot Tablet) (09/07/20 21:00) Sodium Chloride Flush (Catheter Flush Sy (09/07/20 10:15) Acetaminophen Tablet/Caplet (Tylenol T (09/07/20 10:15) Ondansetron Injection (Zofran Injectio (09/07/20 10:15) Ondansetron Oral Dissolve Tab (Zofran (09/07/20 10:15) Oxycodone Immediate Rel Tablet (Oxyir Ta (09/07/20 10:15) Consult Orthopedic Surgery (09/07/20 10:08) Incentive Spirometry Initial (09/07/20 10:08) Incentive Spirometry (Nursing) Q2H (09/07/20 10:08) Patient Visit (09/07/20 ) Pt Eval Moderate Complexity (09/07/20 ) Gait Training, Ea 15 Min (09/07/20 ) Functional Activities, Ea 15 (09/07/20 ) Patient Visit (09/07/20 ) Speech Sound Lang Comp (09/07/20 ) Treat. Speech/Lang/Voice (09/07/20 ) Patient Visit (09/08/20 ) Functional Activities, Ea 15 (09/08/20 ) Rehab Nursing Orders: Ongoing Assess. of Cognitive Status, Ongoing Assess. of Function Status, Bladder Management, Bladder Scan, Bladder Training, Bowel Peace gement, Disease Management & Educaiton, DVT Prophylaxis, Fall Prevention, Fluid/Electrolyte/Nutrition Mgmt, Infection Prevention, Medication Management & Education, Management of Risks & Complications, Nutrition Management, Pain Management, Patient/Family Support, Safety Management Intensity of Therapy to be met Patient to be seen: Min.3h per day/5 of 7d PT IPOC Problem List: Activity Tolerance, Functional Strength, Safety, Balance, Gait, T ransfer, Bed Mobility Treatment Plan: Continue Plan of Care Bed Mobility, Concurrent Therapy, Education, Functional Activity Johan, Functional Strength, Group Therapy, Gait, Safety, Therapeutic Exercise, Transfers Treatment Duration: September 29, 2020 Frequency: At least 5 of 7 days/Wk (IRF) Estimated Hrs Per Day: 1.5 hours per day OT IPOC Problems: Decreased Activ Tolerance, Dependent Transfers, Impaired Cognition, Impaired Funct Balance, Impaired I ADL's, Impaired Self-Care Skills OT Treatment, Training and Edu: Yes Plan of Care: ADL Retraining, Caregiver Training, Functional Mobility, Group Exercise/Act as Ind, UE Funct Exercise/Act Treatment Duration: September 21, 2020 Frequency: At least 5 of 7 days/Wk (IRF) Estimated Hrs Per Day: 1.[address] IPOC Speech Therapy Treatment Plan: Continue Plan of Care Treatment Duration: September 21, 2020 Frequency: 4 times per week (Patient will receive skilled ST 4-5x per week) Estimated Hrs Per Day: .5 hour per day Casting Inspector/Case Mgmt Casting Inspector/Case Managemen: Discharge Planning Dietitian/Cloth Dyer Dietitian/Cloth Dyer to monitor nutritional status and make changes and/or recommendations as needed and work with speech pathology on dietary upgrades as the occur. Physician IPOC Medical Issues being managed closely and that require the 24 hour availability of a physician: Recent hip fracture with dementia will require close monitoring for post op complications and delirium Medical Issues: Bowel/Bladder Function, DVT Prophylaxis, Falls Precautions, Fluid/Electrolyte/Nutrition Balance, Infection Protection, Pain Management Brief Synthesis of Preadmission Screen, Post-Admission Evaluation, and Therapy Evaluations: PT OT ST will all focus on regaining function with ambulation, fall risk, ADL independence and cognitive improvement Medical Prognosis: Fair Anticipated Length of Stay: 7 days EDWIGE SRINIVASAN DO September 08, 2020 10:42
[2020-09-08] MEDS: RIVAROXABAN 20 MG TABLET (XARELTO) PO SCH (16:36)
[2020-09-08 20:00] VITALS: BP 156/79
[2020-09-08] MEDS: MONTELUKAST 10 MG (SINGULAIR) TAB PO SCH (21:14)
[2020-09-09 05:50] LABS: HEMOGLOBIN 10.5 g/dL (11.5-16.0)
[2020-09-09 07:30] VITALS: BP 111/72
--- NOTE | 2020-09-09 09:23 | PM&R Progress Note ---
Subjective HPI/CC On Admission Date Seen by Provider: September 09, 2020 Time Seen by Provider: 09:30 Subjective/Events-last exam 09/09/20: Patient denies issues Pain is an issue when she moves Dementia is an issue Confusion is stable 09/08/20: Patient doing well Memory loss noted Hgb 10 SLUMS [place] intact Eating well BM+ Startles easily Review of Systems General: Fatigue, Malaise Musculoskeletal: leg pain Neurological: Confusion Objective Exam Vital Signs Vital Signs Date Time Temp Pulse Resp B/P (MAP) Pulse Ox O2 Delivery O2 Flow Rate FiO2 09/09/20 21:40 37.2 09/09/20 20:03 64 20 157/68 (97) 96 Room Air 09/09/20 18:03 2.00 Capillary Refill : General Appearance: No Apparent Distress, WD/WN, Chronically ill HEENT: PERRL/EOMI, Normal ENT Inspection, Pharynx Normal Neck: Full Range of Motion, Normal Inspection, Non Tender, Supple, Carotid Bruit Respiratory: Chest Non Tender, Lungs Clear, Normal Breath Sounds, No Accessory Muscle Use, No Respiratory Distress Cardiovascular: Regular Rate, Rhythm, No Edema, No Gallop, No JVD, No Murmur, Normal Peripheral Pulses Gastrointestinal: Normal Bowel Sounds, No Organomegaly, No Pulsatile Mass, Non Tender, Soft Back: Normal Inspection, No CVA Tenderness, No Vertebral Tenderness Extremity: Normal Capillary Refill, Normal Inspection, Normal Range of Motion, Non Tender, No Calf Tenderness, No Pedal Edema Neurologic/Psychiatric: Alert, Oriented x3, No Motor/Sensory Deficits, Normal Mood/Affect, search consultant II-XII Norm as Tested, Disoriented, Motor Weakness Skin: Normal Color, Warm/Dry Lymphatic: No Adenopathy Results/Procedures Lab Patient resulted labs reviewed. FIM Transfers Therapy Code Descriptions/Definitions Functional [place] Measure: 0=Not Assessed/NA 4=Minimal Assistance 1=Total Assistance 5=Supervision or Setup 2=Maximal Assistance 6=Modified [place] 3=Moderate Assistance 7=Complete IndependenceSCALE: Activities may be completed with or without assistive devices. 0-Xhrfvyabnm-bqtdprt completes the activity by him/herself with no assistance from a helper. 5-Set-up or Clean-up Assistance-helper sets up or cleans up; patient completes activity. [place] assists only prior to or following the activity. 4-Supervision or Touching Assistance-helper provides verbal cues and/or touching/steadying and/or contact guard assistance as patient completes activity. Assistance may be provided throughout the activity or intermittently. 3-Partial/Moderate Assistance-helper does LESS THAN HALF the effort. [place] lifts, holds or supports trunk or limbs, but provides less than half the effort. 2-Substantial/Maximal Assistance-helper does MORE THAN HALF the effort. [place] lifts or holds trunk or limbs and provides more than half the effort. 0-Xcrcbrlda-eoixcl does ALL the effort. Patient does none of the effort to complete the activity. Or, the assistance of 2 or more helpers is required for the patient to complete the activity. If activity was not attempted, code reason: 7-Patient Refused. 9-Not Applicable-not attempted and the patient did not perform the activity before the current illness, exacerbation or injury. 10-Not Attempted due to Environmental Limitations-(lack of equipment, weather restraints, etc.). 88-Not Attempted due to Medical Conditions or Safety Concerns. Roll Left to Right (QC): 3 Sit to Lying (QC): 4 Sit to Stand (QC): 4 Chair/Ows-lf-Oxfsd Xfer(QC): 3 Car Transfer (QC): 3 Gait Training Does the Patient Walk?: Yes Walk 10 feet (QC): 4 Walk 50 ft with 2 Turns(QC): 3 Walk 150 ft (QC): 3 Walking 10ft/uneven surface-QC: 3 Gait Assistive Device: FWW Wheelchair Training Does the Pt Use a Wheelchair?: No Wheel 50 ft with 2 turns (QC): 9 Wheel 150 ft (QC): 9 Type of Wheelchair: N/A Stair Training #of Steps: 4 1 Step (curb) (QC): 3 4 Steps (QC): 3 12 Steps (QC): 9 Balance Picking up an Object (QC): 3 (with device and assistance of use) ADL-Treatment Eating (QC): 6 Oral Hygiene (QC): 4 (SBA in stance at sink) Shower/Bathe Self (QC): 3 (min A with feet, educated on long handled sponge, able to complete with cues for maintenance for hip precautions.) Upper Body Dressing (QC): 5 (s/u) Lower Body Dressing (QC): 2 (max A for threading BLE. Pt able to tail puller hips in stance with CGA- decreased stance/ slight LOB and able to right in shower.) On/Off Footwear (QC): 1 (TD bilaterally. Educated on sock aide with good ability with multiple trials (completes BLE 2x with min cues)) Toileting Hygiene (QC): 4 (CGA in stance.) Assessment/Plan Assessment and Plan Assess & Plan/Chief Complaint Assessment: Right hip fracture CLL Anemia of chronic disease CKD Stage 4 HTN HLP COPD PVD CAD Carotid stenosis Dementia Plan: IRF protocol Monitor closely Dementia monitoring 09/08/20: Monitor closely Monitor confusion 09/09/20: Monitor closely Fall risk (1) Closed right hip fracture Status: Acute (2) Acute renal failure superimposed on chronic kidney disease Status: Acute (3) Anemia of chronic disease Status: Acute (4) Left knee pain Status: Acute (5) Fall on same level Status: Acute (6) Inflammatory arthropathy Status: Acute (7) HLP (8) Abnormal stress test (9) HTN (hypertension) (10) SOB (shortness of breath) (11) CAD (coronary artery disease) EDWIGE SRINIVASAN DO September 09, 2020 09:22
[2020-09-09] MEDS: LORATADINE (CLARITIN) 10 MG TAB PO SCH (09:43)
[2020-09-09] MEDS: PANTOPRAZOLE 40 MG (PROTONIX) TAB PO SCH (09:43)
[2020-09-09] MEDS: ATENOLOL 25 MG (TENORMIN) TAB PO SCH (09:43)
[2020-09-09] MEDS: fluCOnazole (DIFLUCAN) 100 MG TAB PO SCH (09:43)
[2020-09-09] MEDS: DONEPEZIL 10 MG (ARICEPT) TAB PO SCH (09:43)
[2020-09-09] MEDS: ACYCLOVIR 400 MG TABLET (ZOVIRAX) PO SCH ×2 (09:43→20:47)
[2020-09-09] MEDS: SENNA W/DOCUSATE (SENOKOT S) TABLET PO SCH ×2 (09:44→19:22)
[2020-09-09] MEDS: polyethylene glycoL POWDER 17 GM (MIRALAX) PACK PO SCH ×2 (09:44→19:22)
[2020-09-09] MEDS: DOCUSATE SODIUM 100 MG (COLACE) CAP PO SCH ×2 (09:44→19:21)
[2020-09-09] MEDS: SENNOSIDES 8.6 MG (SENOKOT) TAB PO SCH ×2 (09:44→19:22)
[2020-09-09] MEDS: RIVAROXABAN 20 MG TABLET (XARELTO) PO SCH (17:22)
[2020-09-09 20:03] VITALS: BP 157/68
[2020-09-09] MEDS: MONTELUKAST 10 MG (SINGULAIR) TAB PO SCH (20:47)
[2020-09-09] MEDS: HYDROcodone/APAP 5 MG/325 MG (LORTAB) TAB PO PRN (20:54)
--- NOTE | 2020-09-10 05:24 | PM&R Progress Note ---
Subjective HPI/CC On Admission Date Seen by Provider: September 10, 2020 Time Seen by Provider: 08:15 Subjective/Events-last exam 09/10/20: Pt doing pretty well Hgb 10.6 Bowels moved today, no major issues Will inquire with Dr. Gilliland regarding her chemotherapy pill 09/09/20: Patient denies issues Pain is an issue when she moves Dementia is an issue Confusion is stable 09/08/20: Patient doing well Memory loss noted Hgb 10 SLUMS [place] intact Eating well BM+ Startles easily Review of Systems General: Fatigue, Malaise Musculoskeletal: leg pain Neurological: Confusion Objective Exam Vital Signs Vital Signs Date Time Temp Pulse Resp B/P (MAP) Pulse Ox O2 Delivery O2 Flow Rate FiO2 09/10/20 21:17 Nasal Cannula 2.00 09/10/20 20:00 36.0 63 20 130/74 (92) 100 Capillary Refill : General Appearance: No Apparent Distress, WD/WN, Chronically ill HEENT: PERRL/EOMI, Normal ENT Inspection, Pharynx Normal Neck: Full Range of Motion, Normal Inspection, Non Tender, Supple, Carotid Bruit Respiratory: Chest Non Tender, Lungs Clear, Normal Breath Sounds, No Accessory Muscle Use, No Respiratory Distress Cardiovascular: Regular Rate, Rhythm, No Edema, No Gallop, No JVD, No Murmur, Normal Peripheral Pulses Gastrointestinal: Normal Bowel Sounds, No Organomegaly, No Pulsatile Mass, Non Tender, Soft Back: Normal Inspection, No CVA Tenderness, No Vertebral Tenderness Extremity: Normal Capillary Refill, Normal Inspection, Normal Range of Motion, Non Tender, No Calf Tenderness, No Pedal Edema Neurologic/Psychiatric: Alert, Oriented x3, No Motor/Sensory Deficits, Normal Mood/Affect, personal financial planner II-XII Norm as Tested, Disoriented, Motor Weakness Skin: Normal Color, Warm/Dry Lymphatic: No Adenopathy Results/Procedures Lab Laboratory Tests 09/10/20 05:17 Patient resulted labs reviewed. FIM Transfers Therapy Code Descriptions/Definitions Functional [place] Measure: 0=Not Assessed/NA 4=Minimal Assistance 1=Total Assistance 5=Supervision or Setup 2=Maximal Assistance 6=Modified [place] 3=Moderate Assistance 7=Complete IndependenceSCALE: Activities may be completed with or without assistive devices. 2-Bybfuqcmab-pdxrbjf completes the activity by him/herself with no assistance from a helper. 5-Set-up or Clean-up Assistance-helper sets up or cleans up; patient completes activity. [place] assists only prior to or following the activity. 4-Supervision or Touching Assistance-helper provides verbal cues and/or touching/steadying and/or contact guard assistance as patient completes activity. Assistance may be provided throughout the activity or intermittently. 3-Partial/Moderate Assistance-helper does LESS THAN HALF the effort. [place] lifts, holds or supports trunk or limbs, but provides less than half the effort. 2-Substantial/Maximal Assistance-helper does MORE THAN HALF the effort. [place] lifts or holds trunk or limbs and provides more than half the effort. 0-Ipanbvnsl-afhslk does ALL the effort. Patient does none of the effort to comp lete the activity. Or, the assistance of 2 or more helpers is required for the patient to complete the activity. If activity was not attempted, code reason: 7-Patient Refused. 9-Not Applicable-not attempted and the patient did not perform the activity before the current illness, exacerbation or injury. 10-Not Attempted due to Environmental Limitations-(lack of equipment, weather restraints, etc.). 88-Not Attempted due to Medical Conditions or Safety Concerns. Roll Left to Right (QC): 3 Sit to Lying (QC): 4 Sit to Stand (QC): 4 Chair/Pyj-cr-Hrvlt Xfer(QC): 3 Car Transfer (QC): 3 Gait Training Does the Patient Walk?: Yes Walk 10 feet (QC): 4 Walk 50 ft with 2 Turns(QC): 3 Walk 150 ft (QC): 3 Walking 10ft/uneven surface-QC: 3 Gait Assistive Device: FWW Wheelchair Training Does the Pt Use a Wheelchair?: No Wheel 50 ft with 2 turns (QC): 9 Wheel 150 ft (QC): 9 Type of Wheelchair: N/A Stair Training #of Steps: 4 1 Step (curb) (QC): 3 4 Steps (QC): 3 12 Steps (QC): 9 Balance Picking up an Object (QC): 3 (with device and assistance of use) ADL-Treatment Eating (QC): 6 Oral Hygiene (QC): 4 (SBA in stance at sink) Shower/Bathe Self (QC): 3 (min A with feet, educated on long handled sponge, able to complete with cues for maintenance for hip precautions.) Upper Body Dressing (QC): 5 (s/u) Lower Body Dressing (QC): 2 (max A for threading BLE. Pt able to well puller head hips in stance with CGA- decreased stance/ slight LOB and able to right in shower.) On/Off Footwear (QC): 1 (TD bilaterally. Educated on sock aide with good ability with multiple trials (completes BLE 2x with min cues)) Toileting Hygiene (QC): 4 (CGA in stance.) Assessment/Plan Assessment and Plan Assess & Plan/Chief Complaint Assessment: Right hip fracture CLL Anemia of chronic disease CKD Stage 4 HTN HLP COPD PVD CAD Carotid stenosis Dementia Plan: IRF protocol Monitor closely Dementia monitoring 09/08/20: Monitor closely Monitor confusion 09/09/20: Monitor closely Fall risk 09/10/20: Monitor closely Monitor pain (1) Closed right hip fracture Status: Acute (2) Acute renal failure superimposed on chronic kidney disease Status: Acute (3) Anemia of chronic disease Status: Acute (4) Left knee pain Status: Acute (5) Fall on same level Status: Acute (6) Inflammatory arthropathy Status: Acute (7) HLP (8) Abnormal stress test (9) HTN (hypertension) (10) SOB (shortness of breath) (11) CAD (coronary artery disease) EDWIGE SRINIVASAN DO September 10, 2020 05:23
[2020-09-10 05:27] LABS: BASOPHILS % (AUTO) 0 % (0-10); EOSINOPHILS % (AUTO) 1 % (0-10); HEMATOCRIT 34 % (35-52); HEMOGLOBIN 10.6 g/dL (11.5-16.0); LYMPHOCYTES # (AUTO) 0.7 10^3/uL (1.0-4.0); LYMPHOCYTES % (AUTO) 10 % (12-44); MEAN CORPUSCULAR HEMOGLOBIN 28 pg (25-34); MEAN CORPUSCULAR HGB CONC 32 g/dL (32-36); MEAN CORPUSCULAR VOLUME 89 fL (80-99); MEAN PLATELET VOLUME 10.3 fL (9.0-12.2); MONOCYTES % (AUTO) 16 % (0-12); NEUTROPHILS # (AUTO) 4.7 10^3/uL (1.8-7.8); NEUTROPHILS % (AUTO) 72 % (42-75); PLATELET COUNT 213 10^3/uL (130-400); WHITE BLOOD COUNT 6.5 10^3/uL (4.3-11.0)
[2020-09-10 05:54] LABS: ALBUMIN 3.2 GM/DL (3.2-4.5); BILIRUBIN,TOTAL 0.7 MG/DL (0.1-1.0); CREATININE SERUM 0.96 MG/DL (0.60-1.30); POTASSIUM 4.2 MMOL/L (3.6-5.0); TOTAL PROTEIN 5.9 GM/DL (6.4-8.2)
[2020-09-10 08:18] VITALS: BP 143/70
[2020-09-10] MEDS: fluCOnazole (DIFLUCAN) 100 MG TAB PO SCH (08:33)
[2020-09-10] MEDS: DONEPEZIL 10 MG (ARICEPT) TAB PO SCH (08:33)
[2020-09-10] MEDS: PANTOPRAZOLE 40 MG (PROTONIX) TAB PO SCH (08:33)
[2020-09-10] MEDS: ATENOLOL 25 MG (TENORMIN) TAB PO SCH (08:33)
[2020-09-10] MEDS: LORATADINE (CLARITIN) 10 MG TAB PO SCH (08:33)
[2020-09-10] MEDS: ACYCLOVIR 400 MG TABLET (ZOVIRAX) PO SCH ×2 (08:36→20:43)
[2020-09-10] MEDS: polyethylene glycoL POWDER 17 GM (MIRALAX) PACK PO SCH ×2 (08:38→20:21)
[2020-09-10] MEDS: SENNA W/DOCUSATE (SENOKOT S) TABLET PO SCH ×2 (08:38→20:21)
[2020-09-10] MEDS: DOCUSATE SODIUM 100 MG (COLACE) CAP PO SCH ×2 (08:38→20:21)
[2020-09-10] MEDS: SENNOSIDES 8.6 MG (SENOKOT) TAB PO SCH ×2 (08:39→20:21)
--- NOTE | 2020-09-10 09:08 | Speech Therapy Daily Note ---
Speech Daily Progress Note Subjective Date Seen by Provider: September 10, 2020 Time Seen by Provider: 00:30 Patient was resting in her recliner after taking her pain med she reported "it just does me in". Objective Patient completed general information questions at 75% with minimal verbal cues. Assessment Assessment Current Status: Fair Progress Treatment Plan Continue Plan of Care Speech Short Term Goals Short Term Goals Short Term Goals 1) Patient will complete memory tasks related to her daily needs at 80% with minimal cuing. 2) Patient will complete safety awareness tasks related to her daily needs at 80% with minimal cuing. 3) Patient will complete problem solving tasks related to her daily needs at 80% with minimal cuing. Speech Language Teacher Goals Language Teacher Goals Patient will improve cognitive-communication abilities in order to complete daily living tasks with minimal assist. Speech-Plan Patient/Family Goals Patient/Family Goals: Patient plans on returning to her home where she lives with her . Treatment Plan Speech Therapy Treatment Plan: Continue Plan of Care Treatment Duration: September 21, 2020 Frequency: 4 times per week (Patient will receive skilled ST 4-5x per week) Estimated Hrs Per Day: .5 hour per day Rehab Potential: Fair Barriers to Learning: Patient has decreased cognitive function with memory and problem solving. Pt/Family Agrees to Plan: Yes Safety Risks/Education Teaching Recipient: Patient Teaching Methods: Demonstration, Discussion Response to Teaching: Verbalize Understanding, Return Demonstration Education Topics Provided: Continued safety within her room and communication of wants/needs Time Speech Therapy Time In: 09:00 Speech Therapy Time Out: 09:30 Total Billed Time: 30 Billed Treatment Time 1, YING Saavedra September 10, 2020 09:08
--- NOTE | 2020-09-10 11:31 | Physical Therapy Daily Note ---
PT Daily Note-Current Subjective Patient agrees to PT. Able to toilet self after BM and washed hands. Pain Numeric Pain Scale: 5-Moderate Pain Location: Right Location Body Site: Hip Mental Status Patient Orientation: Person, Time, Situation Transfers SCALE: Activities may be completed with or without assistive devices. 8-Zqkayadgqr-yjwfiqf completes the activity by him/herself with no assistance from a helper. 5-Set-up or Clean-up Assistance-helper sets up or cleans up; patient completes activity. [place] assists only prior to or following the activity. 4-Supervision or Touching Assistance-helper provides verbal cues and/or touching/steadying and/or contact guard assistance as patient completes activity. Assistance may be provided throughout the activity or intermittently. 3-Partial/Moderate Assistance-helper does LESS THAN HALF the effort. [place] lifts, holds or supports trunk or limbs, but provides less than half the effort. 2-Substantial/Maximal Assistance-helper does MORE THAN HALF the effort. [place] lifts or holds trunk or limbs and provides more than half the effort. 7-Bjodymgek-flzpgf does ALL the effort. Patient does none of the effort to complete the activity. Or, the assistance of 2 or more helpers is required for the patient to complete the activity. If activity was not attempted, code reason: 7-Patient Refused. 9-Not Applicable-not attempted and the patient did not perform the activity before the current illness, exacerbation or injury. 10-Not Attempted due to Environmental Limitations-(lack of equipment, weather restraints, etc.). 88-Not Attempted due to Medical Conditions or Safety Concerns. Sit to Lying (QC): 4 Lying to Sitting/Side of Bed(Q: 4 Sit to Stand (QC): 4 (CGA) Weight Bearing Right Lower Extremity: Right Weight Bearing/Tolerated Left Lower Extremity: Left Full Weight Bearing Gait Training Does the Patient Walk?: Yes Distance: 200' x 5 Walk 10 feet (QC): 4 (CGA to SBA) Walk 50 ft with 2 Turns(QC): 4 (CGA to SBA) Walk 150 ft (QC): 4 (CGA-SBA) Gait Assistive Device: FWW VC-s for body placement in FWW with increase extended UE's/slow, antalgic gait sequence Wheelchair Training Does the Pt Use a Wheelchair?: No Exercises Supine Ex: Ankle pumps, Quad Set, Heel Slides, Straight leg raise Supine Reps: 12 (AAROM) Seated Therapy Exercises: Ankle pumps, Long arc quads NuStep Minutes: 13 NuStep Workload: 4 Assessment Patient requires time to complete all functional tasks. Patient tolerated treatment well. Increase activity as tolerated by patient. PT Longterm Goals Longterm Goals PT Longterm Goals Time Frame: September 29, 2020 Roll Left & Right (QC): 6 Sit to Lying (QC): 6 Lying-Sitting on Side/Bed(QC): 6 Sit to Stand (QC): 6 Chair/Ajf-in-Uvmbl Xfer(QC): 6 Toilet Transfer (QC): 6 Car Transfer (QC): 6 Does the Patient Walk: Yes Walk 10 feet (QC): 6 Walk 50ft with 2 Turns (QC): 6 Walk 150 ft (QC): 6 Walking 10ft on Uneven Surface: 6 1 Step (curb) (QC): 6 4 Steps (QC): 6 12 Steps (QC): 9 Picking up an Object (QC): 6 Does the Pt use WC or Scooter?: No Wheel 50 feet with 2 turns (QC: 9 Type: N/A Wheel 150 feet: 9 Type: N/A PT Plan Treatment/Plan Treatment Plan: Continue Plan of Care Treatment Plan: Bed Mobility, Concurrent Therapy, Education, Functional Activity Johan, Functional Strength, Group Therapy, Gait, Safety, Therapeutic Exercise, Transfers Treatment Duration: September 29, 2020 Frequency: At least 5 of 7 days/Wk (IRF) Estimated Hrs Per Day: 1.5 hours per day Patient and/or Family Agrees t: Yes Time/GCodes Time In: 950 Time Out: 1050 Total Billed Treatment Time: 60 Total Billed Treatment 1 visit GT x 2 34 min EX x 2 26 min MERI DÍAZ PT September 10, 2020 11:31
--- NOTE | 2020-09-10 13:19 | Physical Therapy Daily Note ---
PT Daily Note-Current Subjective Patient reports 8/10 right hip pain. Pain medication requested and issued. Pain Numeric Pain Scale: 8 Location: Right Location Body Site: Hip Pain Description: Ache Mental Status Patient Orientation: Person, Time, Situation Transfers SCALE: Activities may be completed with or without assistive devices. 6-Hpdphcdvcn-vjrwgdy completes the activity by him/herself with no assistance f rom a helper. 5-Set-up or Clean-up Assistance-helper sets up or cleans up; patient completes activity. [place] assists only prior to or following the activity. 4-Supervision or Touching Assistance-helper provides verbal cues and/or touching/steadying and/or contact guard assistance as patient completes activity. Assistance may be provided throughout the activity or intermittently. 3-Partial/Moderate Assistance-helper does LESS THAN HALF the effort. [place] lifts, holds or supports trunk or limbs, but provides less than half the effort. 2-Substantial/Maximal Assistance-helper does MORE THAN HALF the effort. [place] lifts or holds trunk or limbs and provides more than half the effort. 9-Taudjqeem-nvjyez does ALL the effort. Patient does none of the effort to complete the activity. Or, the assistance of 2 or more helpers is required for the patient to complete the activity. If activity was not attempted, code reason: 7-Patient Refused. 9-Not Applicable-not attempted and the patient did not perform the activity before the current illness, exacerbation or injury. 10-Not Attempted due to Environmental Limitations-(lack of equipment, weather restraints, etc.). 88-Not Attempted due to Medical Conditions or Safety Concerns. Sit to Stand (QC): 4 Chair/Ppo-zt-Yhokc Xfer(QC): 4 Toilet Transfer (QC): 4 patient toileted self after BM and washed hands Weight Bearing Right Lower Extremity: Right Weight Bearing/Tolerated Left Lower Extremity: Left Full Weight Bearing Gait Training Does the Patient Walk?: Yes Distance: 30' x 2 Walk 10 feet (QC): 4 Exercises Seated Therapy Exercises: Ankle pumps, Long arc quads, Hip flexion Seated Reps: 12 Assessment Patient is up in recliner with OT to follow. Patient tolerated minimal activity this p.m. due to right hip pain. 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 Goals 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 Time Frame: September 29, 2020 Roll Left & Right (QC): 6 Sit to Lying (QC): 6 Lying-Sitting on Side/Bed(QC): 6 Sit to Stand (QC): 6 Chair/Bqj-pz-Cyehp Xfer(QC): 6 Toilet Transfer (QC): 6 Car Transfer (QC): 6 Does the Patient Walk: Yes Walk 10 feet (QC): 6 Walk 50ft with 2 Turns (QC): 6 Walk 150 ft (QC): 6 Walking 10ft on Uneven Surface: 6 1 Step (curb) (QC): 6 4 Steps (QC): 6 12 Steps (QC): 9 Picking up an Object (QC): 6 Does the Pt use WC or Scooter?: No Wheel 50 feet with 2 turns (QC: 9 Type: N/A Wheel 150 feet: 9 Type: N/A PT Plan Treatment/Plan Treatment Plan: Continue Plan of Care Treatment Plan: Bed Mobility, Concurrent Therapy, Education, Functional Activity Johan, Functional Strength, Group Therapy, Gait, Safety, Therapeutic Exercise, Transfers Treatment Duration: September 29, 2020 Frequency: At least 5 of 7 days/Wk (IRF) Estimated Hrs Per Day: 1.5 hours per day Patient and/or Family Agrees t: Yes Time/GCodes Time In: 1300 Time Out: 1315 Total Billed Treatment Time: 15 Total Billed Treatment 1 visit FA 15 min MERI DÍAZ PT September 10, 2020 13:19
[2020-09-10] MEDS: VENETOCLAX PO SCH (14:08)
--- NOTE | 2020-09-10 15:08 | Occupational Ther Daily Note ---
OT Current Status-Daily Note Subjective Pt. reports pain in right groin area at second treatment. Does not report pain level. Nursing does give pain medication. Mental Status/Objective Patient Orientation: Person, Place ADL-Treatment Therapy Code Descriptions/Definitions Functional [place] Measure: 0=Not Assessed/NA 4=Minimal Assistance 1=Total Assistance 5=Supervision or Setup 2=Maximal Assistance 6=Modified [place] 3=Moderate Assistance 7=Complete IndependenceSCALE: Activities may be completed with or without assistive devices. 3-Muflazmksz-hdyscud completes the activity by him/herself with no assistance from a helper. 5-Set-up or Clean-up Assistance-helper sets up or cleans up; patient completes activity. [place] assists only prior to or following the activity. 4-Supervision or Touching Assistance-helper provides verbal cues and/or touching/steadying and/or contact guard assistance as patient completes activity. Assistance may be provided throughout the activity or intermittently. 3-Partial/Moderate Assistance-helper does LESS THAN HALF the effort. [place] li fts, holds or supports trunk or limbs, but provides less than half the effort. 2-Substantial/Maximal Assistance-helper does MORE THAN HALF the effort. [place] lifts or holds trunk or limbs and provides more than half the effort. 9-Icftqogxy-oyrvmr does ALL the effort. Patient does none of the effort to complete the activity. Or, the assistance of 2 or more helpers is required for the patient to complete the activity. If activity was not attempted, code reason: 7-Patient Refused. 9-Not Applicable-not attempted and the patient did not perform the activity before the current illness, exacerbation or injury. 10-Not Attempted due to Environmental Limitations-(lack of equipment, weather restraints, etc.). 88-Not Attempted due to Medical Conditions or Safety Concerns. Eating (QC): 5 Shower/Bathe Self (QC): 7 (Pt. declines bathing.) On/Off Footwear: 3 (Mod assist overall. Pt. practiced doffing/donning socks with dressing stick and sock aide.) Other Treatment Pt. seen for two treatments this date. At first treatment, pt. up in chair and dressed. Pt. reports that she had help getting dressed, and does remember that she has hip precautions. Pt. declines bathing this date, but agrees to practice LE dressing with AE. Pt. is able to doff socks with dressing stick with cues, and don socks with sock aide with increased time and cues. OT dons shoes as pt's lunch arrives. At second treatment session, spouse in room. Pt. agrees to work with OT. Stands from chair with min assist, and ambulates approximately 50 feet. Pt. seems SOA. Sats taken and are 99%. Pt. encouraged to breathe in through nose and out through mouth. Pt. continues to breathe in and out of mouth. Pt. rests, and then ambulates the rest of the way to gym with walker and CGA. Pt. requires another rest break and cues for breathing. Sats taken again and are at 98%. Pt. completes 10 minutes on arm bike at min resistance. Working toward increased overall endurance for daily skills. Pt. able to complete this task, and then ambulates back to room with no rest break. Cues provided to keep walker close. Pt. has difficulty at times remembering specific things. Can't recall what she had for breakfast. Pt. up in chair. All needs met. Spouse in room. Education OT Patient Education: Correct positioning, Exercise program, Modified ADL techniques, Progress toward Goal/Update tx plan, Purpose of tx/functional activities, Reviewed precautions, Rehab process, Transfer techniques Teaching Recipient: Patient, Family Teaching Methods: Demonstration, Discussion Response to Teaching: Verbalize Understanding, Return Demonstration, Reinforcement Needed OT Short Term Goals Short Term Goals Oral hygiene: 6 Toileting hygiene: 6 Shower/bathe self: 5 Upper body dressin Lower body dressin Putting on/taking off footwear: 4 OT Chief Psychology Goals Chief Psychology Goals Time Frame: September 21, 2020 Eating (QC): 6 Oral Hygiene (QC): 6 Toileting Hygiene (QC): 6 Shower/Bathe Self (QC): 6 Upper Body Dressing (QC): 6 Lower Body Dressing (QC): 6 On/Off Footwear (QC): 6 Additional Goals: 1-Demonstrate ADL Tasks, 2-Verbalize Understanding, 3- ImproveStrength/Johan 1=Demonstrate adherence to instructed precautions during ADL tasks. 2=Patient will verbalize/demonstrate understanding of assistive devices/modifications for ADL. 3=Patient will improve strength/tolerance for activity to enable patient to perform ADL's. OT Education/Plan Problem List/Assessment Assessment: Decreased Activ Tolerance, Impaired I ADL's, Impaired Self-Care Skills Discharge Recommendations Plan/Recommendations: Continue POC Treatment Plan/Plan of Care Treatment,Training & Education: Yes Patient would benefit from OT for education, treatment and training to promote independence in ADL's, mobility, safety and/or upper extremity function for ADL's. Plan of Care: ADL Retraining, Caregiver Training, Functional Mobility, Group Exercise/Act as Ind, UE Funct Exercise/Act Treatment Duration: September 21, 2020 Frequency: At least 5 of 7 days/Wk (IRF) Estimated Hrs Per Day: 1.5 hours per day Agreement: Yes Rehab Potential: Good Time/GCodes Start Time: 11:40 Stop Time: 14:05 Total Time Billed (hr/min): 75 Billed Treatment Time 4256-1499 1, ADL x 25minutes [id number] 1, Ex x 15minutes, FA x 35minutes ROSARIO HELLER OT September 10, 2020 15:08
[2020-09-10] MEDS: HYDROcodone/APAP 5 MG/325 MG (LORTAB) TAB PO PRN (16:50)
[2020-09-10] MEDS: RIVAROXABAN 20 MG TABLET (XARELTO) PO SCH (16:50)
[2020-09-10 20:00] VITALS: BP 130/74
[2020-09-10] MEDS: MONTELUKAST 10 MG (SINGULAIR) TAB PO SCH (20:42)
[2020-09-11 08:00] VITALS: BP 119/60
--- NOTE | 2020-09-11 08:09 | PM&R Progress Note ---
Subjective HPI/CC On Admission Date Seen by Provider: September 11, 2020 Time Seen by Provider: 08:20 Subjective/Events-last exam 09/11/20: Pt doing pretty well Weaning O2 off Right knee pain is starting to be an issue Dementia is certainly causing a delay in recovery 09/10/20: Pt doing pretty well Hgb 10.6 Bowels moved today, no major issues Will inquire with Dr. Gilliland regarding her chemotherapy pill 09/09/20: Patient denies issues Pain is an issue when she moves Dementia is an issue Confusion is stable 09/08/20: Patient doing well Memory loss noted Hgb 10 SLUMS Eduar intact Eating well BM+ Startles easily Review of Systems General: Fatigue, Malaise Musculoskeletal: leg pain Neurological: Weakness Objective Exam Vital Signs Vital Signs Date Time Temp Pulse Resp B/P (MAP) Pulse Ox O2 Delivery O2 Flow Rate FiO2 09/11/20 21:13 Room Air 09/11/20 20:00 37.2 66 18 141/63 (89) 97 09/11/20 07:53 2.00 Capillary Refill : General Appearance: No Apparent Distress, WD/WN, Chronically ill HEENT: PERRL/EOMI, Normal ENT Inspection, Pharynx Normal Neck: Full Range of Motion, Normal Inspection, Non Tender, Supple, Carotid Bruit Respiratory: Chest Non Tender, Lungs Clear, Normal Breath Sounds, No Accessory Muscle Use, No Respiratory Distress Cardiovascular: Regular Rate, Rhythm, No Edema, No Gallop, No JVD, No Murmur, Normal Peripheral Pulses Gastrointestinal: Normal Bowel Sounds, No Organomegaly, No Pulsatile Mass, Non Tender, Soft Back: Normal Inspection, No CVA Tenderness, No Vertebral Tenderness Extremity: Normal Capillary Refill, Normal Inspection, Normal Range of Motion, Non Tender, No Calf Tenderness, No Pedal Edema Neurologic/Psychiatric: Alert, Oriented x3, No Motor/Sensory Deficits, Normal Mood/Affect, regional 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 FIM Transfers Therapy Code Descriptions/Definitions Functional [place] Measure: 0=Not Assessed/NA 4=Minimal Assistance 1=Total Assistance 5=Supervision or Setup 2=Maximal Assistance 6=Modified [place] 3=Moderate Assistance 7=Complete IndependenceSCALE: Activities may be completed with or without assistive devices. 3-Dumnyftzls-mvtutsd completes the activity by him/herself with no assistance from a helper. 5-Set-up or Clean-up Assistance-helper sets up or cleans up; patient completes activity. [place] assists only prior to or following the activity. 4-Supervision or Touching Assistance-helper provides verbal cues and/or touching/steadying and/or contact guard assistance as patient completes activity. Assistance may be provided throughout the activity or intermittently. 3-Partial/Moderate Assistance-helper does LESS THAN HALF the effort. [place] lifts, holds or supports trunk or limbs, but provides less than half the effort. 2-Substantial/Maximal Assistance-helper does MORE THAN HALF the effort. [place] lifts or holds trunk or limbs and provides more than half the effort. 6-Qpfdwqwdp-ikceyg does ALL the effort. Patient does none of the effort to complete the activity. Or, the assistance of 2 or more helpers is required for the patient to complete the activity. If activity was not attempted, code reason: 7-Patient Refused. 9-Not Applicable-not attempted and the patient did not perform the activity before the current illness, exacerbation or injury. 10-Not Attempted due to Environmental Limitations-(lack of equipment, weather restraints, etc.). 88-Not Attempted due to Medical Conditions or Safety Concerns. Roll Left to Right (QC): 3 Sit to Lying (QC): 4 Sit to Stand (QC): 4 Chair/Fug-zt-Ccgkm Xfer(QC): 4 Car Transfer (QC): 3 Gait Training Does the Patient Walk?: Yes Distance: 30' x 2 Walk 10 feet (QC): 4 Walk 50 ft with 2 Turns(QC): 4 (CGA to SBA) Walk 150 ft (QC): 4 (CGA-SBA) Walking 10ft/uneven surface-QC: 3 Gait Assistive Device: FWW Wheelchair Training Does the Pt Use a Wheelchair?: No Wheel 50 ft with 2 turns (QC): 9 Wheel 150 ft (QC): 9 Type of Wheelchair: N/A Stair Training #of Steps: 4 1 Step (curb) (QC): 3 4 Steps (QC): 3 12 Steps (QC): 9 Balance Picking up an Object (QC): 3 (with device and assistance of use) ADL-Treatment Eating (QC): 5 Oral Hygiene (QC): 4 (SBA in stance at sink) Shower/Bathe Self (QC): 7 (Pt. declines bathing.) Upper Body Dressing (QC): 5 (s/u) Lower Body Dressing (QC): 2 (max A for threading BLE. Pt able to bone puller hips in stance with CGA- decreased stance/ slight LOB and able to right in shower.) On/Off Footwear (QC): 3 (Mod assist overall. Pt. practiced doffing/donning socks with dressing stick and sock aide.) Toileting Hygiene (QC): 4 (CGA in stance.) Assessment/Plan Assessment and Plan Assess & Plan/Chief Complaint Assessment: Right hip fracture CLL Anemia of chronic disease CKD Stage 4 HTN HLP COPD PVD CAD Carotid stenosis Dementia Plan: IRF protocol Monitor closely Dementia monitoring 09/08/20: Monitor closely Monitor confusion 09/09/20: Monitor closely Fall risk 09/10/20: Monitor closely Monitor pain 09/11/20: Monitor pain Fall risk (1) Closed right hip fracture Status: Acute (2) Acute renal failure superimposed on chronic kidney disease Status: Acute (3) Anemia of chronic disease Status: Acute (4) Left knee pain Status: Acute (5) Fall on same level Status: Acute (6) Inflammatory arthropathy Status: Acute (7) HLP (8) Abnormal stress test (9) HTN (hypertension) (10) SOB (shortness of breath) (11) CAD (coronary artery disease) EDWIGE SRINIVASAN DO September 11, 2020 08:09
[2020-09-11] MEDS: DONEPEZIL 10 MG (ARICEPT) TAB PO SCH (08:19)
[2020-09-11] MEDS: ACYCLOVIR 400 MG TABLET (ZOVIRAX) PO SCH ×2 (08:19→20:18)
[2020-09-11] MEDS: LORATADINE (CLARITIN) 10 MG TAB PO SCH (08:19)
[2020-09-11] MEDS: PANTOPRAZOLE 40 MG (PROTONIX) TAB PO SCH (08:19)
[2020-09-11] MEDS: ATENOLOL 25 MG (TENORMIN) TAB PO SCH (08:19)
[2020-09-11] MEDS: fluCOnazole (DIFLUCAN) 100 MG TAB PO SCH (08:19)
[2020-09-11] MEDS: HYDROcodone/APAP 5 MG/325 MG (LORTAB) TAB PO PRN (08:20)
[2020-09-11] MEDS: VENETOCLAX PO SCH (08:23)
[2020-09-11] MEDS: polyethylene glycoL POWDER 17 GM (MIRALAX) PACK PO SCH ×2 (08:27→19:41)
[2020-09-11] MEDS: DOCUSATE SODIUM 100 MG (COLACE) CAP PO SCH ×2 (08:27→19:41)
[2020-09-11] MEDS: SENNA W/DOCUSATE (SENOKOT S) TABLET PO SCH ×2 (08:27→19:41)
[2020-09-11] MEDS: SENNOSIDES 8.6 MG (SENOKOT) TAB PO SCH ×2 (08:28→19:42)
--- NOTE | 2020-09-11 10:14 | Speech Therapy Daily Note ---
Speech Daily Progress Note Subjective Date Seen by Provider: September 11, 2020 Time Seen by Provider: 00:30 Pt was alert and pleasant. Pt agreed to ST services. Pt reported seeing circles with "pretty colors" and "sparkles" as well as visions of nature scenes and "3 bushes with dancing feet." Objective Patient completed memory tasks related to her daily needs at 70% with minimal cuing Assessment Assessment Current Status: Good Progress Treatment Plan Continue Plan of Care Speech Short Term Goals Short Term Goals Short Term Goals 1) Patient will complete memory tasks related to her daily needs at 80% with minimal cuing. 2) Patient will complete safety awareness tasks related to her daily needs at 80% with minimal cuing. 3) Patient will complete problem solving tasks related to her daily needs at 80% with minimal cuing. Speech Intermediate Goals Intermediate Goals Patient will improve cognitive-communication abilities in order to complete daily living tasks with minimal assist. Speech-Plan Patient/Family Goals Patient/Family Goals: Patient plans to return home where she lives with her . Treatment Plan Speech Therapy Treatment Plan: Continue Plan of Care Treatment Duration: September 21, 2020 Frequency: 4 times per week (Patient will receive skilled ST 4-5x per week) Estimated Hrs Per Day: .5 hour per day Rehab Potential: Good Barriers to Learning: Medical status and mental status. Pt/Family Agrees to Plan: Yes Safety Risks/Education Teaching Recipient: Patient Teaching Methods: Discussion Response to Teaching: Verbalize Understanding, Reinforcement Needed Education Topics Provided: Safety awareness and compensatory memory strategies Time Speech Therapy Time In: 09:00 Speech Therapy Time Out: 09:30 Total Billed Time: 30 Billed Treatment Time 1, YING Saavedra September 11, 2020 10:14
--- NOTE | 2020-09-11 10:35 | Physical Therapy Daily Note ---
PT Daily Note-Current Subjective Patient agrees to PT. Transfers SCALE: Activities may be completed with or without assistive devices. 4-Pjejfpruvi-jkfuzzw completes the activity by him/herself with no assistance from a helper. 5-Set-up or Clean-up Assistance-helper sets up or cleans up; patient completes activity. [place] assists only prior to or following the activity. 4-Supervision or Touching Assistance-helper provides verbal cues and/or touching/steadying and/or contact guard assistance as patient completes activity. Assistance may be provided throughout the activity or intermittently. 3-Partial/Moderate Assistance-helper does LESS THAN HALF the effort. [place] lifts, holds or supports trunk or limbs, but provides less than half the effort. 2-Substantial/Maximal Assistance-helper does MORE THAN HALF the effort. [place] lifts or holds trunk or limbs and provides more than half the effort. 8-Mnmfnpwhy-gtclhy does ALL the effort. Patient does none of the effort to complete the activity. Or, the assistance of 2 or more helpers is required for the patient to complete the activity. If activity was not attempted, code reason: 7-Patient Refused. 9-Not Applicable-not attempted and the patient did not perform the activity before the current illness, exacerbation or injury. 10-Not Attempted due to Environmental Limitations-(lack of equipment, weather restraints, etc.). 88-Not Attempted due to Medical Conditions or Safety Concerns. Sit to Lying (QC): 4 Lying to Sitting/Side of Bed(Q: 4 Sit to Stand (QC): 4 Chair/Gtk-yw-Rmpuq Xfer(QC): 4 Toilet Transfer (QC): 4 Weight Bearing Right Lower Extremity: Right Weight Bearing/Tolerated Left Lower Extremity: Left Full Weight Bearing Gait Training Does the Patient Walk?: Yes Distance: 200' x 4 Walk 10 feet (QC): 4 Walk 50 ft with 2 Turns(QC): 4 Walk 150 ft (QC): 4 Gait Assistive Device: FWW slow, antalgic Exercises Supine Ex: Ankle pumps, Quad Set, Heel Slides Supine Reps: 15 Seated Therapy Exercises: Ankle pumps, Long arc quads Seated Reps: 15 Standing: Heel/toe raises, 3 way Ex=Flex, Abd, Ext Standing Reps: 15 (right LE standing exercises) Assessment Patient requires VC's for body placement in FWW. Patient SAO2 100% RA with all activity. Patient tolerated treatment well. Spouse present. PT Management Consulting Goals Management Consulting Goals PT Nursing Home Goals Time Frame: September 29, 2020 Roll Left & Right (QC): 6 Sit to Lying (QC): 6 Lying-Sitting on Side/Bed(QC): 6 Sit to Stand (QC): 6 Chair/Icm-ry-Mmero Xfer(QC): 6 Toilet Transfer (QC): 6 Car Transfer (QC): 6 Does the Patient Walk: Yes Walk 10 feet (QC): 6 Walk 50ft with 2 Turns (QC): 6 Walk 150 ft (QC): 6 Walking 10ft on Uneven Surface: 6 1 Step (curb) (QC): 6 4 Steps (QC): 6 12 Steps (QC): 9 Picking up an Object (QC): 6 Does the Pt use WC or Scooter?: No Wheel 50 feet with 2 turns (QC: 9 Type: N/A Wheel 150 feet: 9 Type: N/A PT Plan Treatment/Plan Treatment Plan: Continue Plan of Care Treatment Plan: Bed Mobility, Concurrent Therapy, Education, Functional Activity Johan, Functional Strength, Group Therapy, Gait, Safety, Therapeutic Exercise, Transfers Treatment Duration: September 29, 2020 Frequency: At least 5 of 7 days/Wk (IRF) Estimated Hrs Per Day: 1.5 hours per day Patient and/or Family Agrees t: Yes Time/GCodes Time In: 930 Time Out: 1030 Total Billed Treatment Time: 60 Total Billed Treatment 1 visit GT x 2 31 min EX x 2 29 min MERI DÍAZ PT September 11, 2020 10:35
--- NOTE | 2020-09-11 13:25 | Physical Therapy Daily Note ---
PT Daily Note-Current Subjective No c/o. Agrees to PT. Transfers SCALE: Activities may be completed with or without assistive devices. 9-Lvdjgcrqwh-dhkgrce completes the activity by him/herself with no assistance from a helper. 5-Set-up or Clean-up Assistance-helper sets up or cleans up; patient completes activity. [place] assists only prior to or following the activity. 4-Supervision or Touching Assistance-helper provides verbal cues and/or touching/steadying and/or contact guard assistance as patient completes activity. Assistance may be provided throughout the activity or intermittently. 3-Partial/Moderate Assistance-helper does LESS THAN HALF the effort. [place] lifts, holds or supports trunk or limbs, but provides less than half the effort. 2-Substantial/Maximal Assistance-helper does MORE THAN HALF the effort. [place] lifts or holds trunk or limbs and provides more than half the effort. 8-Mfttvmtha-vunpew does ALL the effort. Patient does none of the effort to complete the activity. Or, the assistance of 2 or more helpers is required for the patient to complete the activity. If activity was not attempted, code reason: 7-Patient Refused. 9-Not Applicable-not attempted and the patient did not perform the activity before the current illness, exacerbation or injury. 10-Not Attempted due to Environmental Limitations-(lack of equipment, weather restraints, etc.). 88-Not Attempted due to Medical Conditions or Safety Concerns. Sit to Stand (QC): 4 Toilet Transfer (QC): 4 toileted self /BM/washed hands Weight Bearing Right Lower Extremity: Right Weight Bearing/Tolerated Left Lower Extremity: Left Full Weight Bearing Gait Training Does the Patient Walk?: Yes Distance: 20' x 2 Walk 10 feet (QC): 4 Gait Assistive Device: FWW Exercises Seated Therapy Exercises: Ankle pumps, Long arc quads Seated Reps: 15 Assessment Patient remains up in recliner with needs met. Patient fatigues with activity. PT Radial Router Operator Goals [place] Goals PT Radial Router Operator Goals Time Frame: September 29, 2020 Roll Left & Right (QC): 6 Sit to Lying (QC): 6 Lying-Sitting on Side/Bed(QC): 6 Sit to Stand (QC): 6 Chair/Phe-fv-Xgxve Xfer(QC): 6 Toilet Transfer (QC): 6 Car Transfer (QC): 6 Does the Patient Walk: Yes Walk 10 feet (QC): 6 Walk 50ft with 2 Turns (QC): 6 Walk 150 ft (QC): 6 Walking 10ft on Uneven Surface: 6 1 Step (curb) (QC): 6 4 Steps (QC): 6 12 Steps (QC): 9 Picking up an Object (QC): 6 Does the Pt use WC or Scooter?: No Wheel 50 feet with 2 turns (QC: 9 Type: N/A Wheel 150 feet: 9 Type: N/A PT Plan Treatment/Plan Treatment Plan: Continue Plan of Care Treatment Plan: Bed Mobility, Concurrent Therapy, Education, Functional Activity Johan, Functional Strength, Group Therapy, Gait, Safety, Therapeutic Exercise, Transfers Treatment Duration: September 29, 2020 Frequency: At least 5 of 7 days/Wk (IRF) Estimated Hrs Per Day: 1.5 hours per day Patient and/or Family Agrees t: Yes Time/GCodes Time In: 1300 Time Out: 1315 Total Billed Treatment Time: 15 Total Billed Treatment 1 visit FA 15 min MERI DÍAZ PT September 11, 2020 13:25
--- NOTE | 2020-09-11 14:46 | Occupational Ther Daily Note ---
OT Current Status-Daily Note Subjective Pt. reports pain in right hip, but does not state pain level. Nursing notified. Mental Status/Objective Patient Orientation: Person, Place Attachments: IV ADL-Treatment Therapy Code Descriptions/Definitions Functional [place] Measure: 0=Not Assessed/NA 4=Minimal Assistance 1=Total Assistance 5=Supervision or Setup 2=Maximal Assistance 6=Modified [place] 3=Moderate Assistance 7=Complete IndependenceSCALE: Activities may be completed with or without assistive devices. 7-Hwvhzkdook-ndewfrt completes the activity by him/herself with no assistance from a helper. 5-Set-up or Clean-up Assistance-helper sets up or cleans up; patient completes a ctivity. [place] assists only prior to or following the activity. 4-Supervision or Touching Assistance-helper provides verbal cues and/or touching/steadying and/or contact guard assistance as patient completes activity. Assistance may be provided throughout the activity or intermittently. 3-Partial/Moderate Assistance-helper does LESS THAN HALF the effort. [place] lifts, holds or supports trunk or limbs, but provides less than half the effort. 2-Substantial/Maximal Assistance-helper does MORE THAN HALF the effort. [place] lifts or holds trunk or limbs and provides more than half the effort. 9-Wpllmfnms-fjfvdl does ALL the effort. Patient does none of the effort to complete the activity. Or, the assistance of 2 or more helpers is required for the patient to complete the activity. If activity was not attempted, code reason: 7-Patient Refused. 9-Not Applicable-not attempted and the patient did not perform the activity before the current illness, exacerbation or injury. 10-Not Attempted due to Environmental Limitations-(lack of equipment, weather restraints, etc.). 88-Not Attempted due to Medical Conditions or Safety Concerns. Eating (QC): 6 Oral Hygiene (QC): 7 (Pt. declines brushing teeth.) Shower/Bathe Self (QC): 4 (SBA in shower. Pt. utilizes LH sponge but requires cues at times to not bend forward too much.) Upper Body Dressing (QC): 5 Lower Body Dressing (QC): 3 (Mod assist overall with AE.) On/Off Footwear: 3 (Pt. is able to don socks with sock aide, but requires assistance to don shoes.) Other Treatment Pt. is agreeable to shower. Pt. is able to shower and dress with cues for safety in bathroom. Pt. agrees to ambulate after shower. Pt. ambulates with CGA and walker approximately 50 feet. Requests for rest break. After resting, pt. ambulates back to room. Transfers to chair with all needs met. Education OT Patient Education: Correct positioning, Modified ADL techniques, Progress toward Goal/Update tx plan, Purpose of tx/functional activities, Reviewed precautions, Rehab process, Transfer techniques Teaching Recipient: Patient Teaching Methods: Demonstration, Discussion Response to Teaching: Verbalize Understanding, Return Demonstration OT Short Term Goals Short Term Goals Oral hygiene: 6 Toileting hygiene: 6 Shower/bathe self: 5 Upper body dressin Lower body dressin Putting on/taking off footwear: 4 OT [facility] Goals Parole Supervisor Goals Time Frame: September 21, 2020 Eating (QC): 6 Oral Hygiene (QC): 6 Toileting Hygiene (QC): 6 Shower/Bathe Self (QC): 6 Upper Body Dressing (QC): 6 Lower Body Dressing (QC): 6 On/Off Footwear (QC): 6 Additional Goals: 1-Demonstrate ADL Tasks, 2-Verbalize Understanding, 3-ImproveStrength/Johan 1=Demonstrate adherence to instructed precautions during ADL tasks. 2=Patient will verbalize/demonstrate understanding of assistive devices/modifications for ADL. 3=Patient will improve strength/tolerance for activity to enable patient to perform ADL's. OT Education/Plan Problem List/Assessment Assessment: Decreased Activ Tolerance, Impaired I ADL's, Impaired Self-Care Skills Discharge Recommendations Plan/Recommendations: Continue POC Therapy Discharge Recommendati: Post Acute OT Equpiment Recommendations-D/C: Hip Kit Treatment Plan/Plan of Care Treatment,Training & Education: Yes Patient would benefit from OT for education, treatment and training to promote independence in ADL's, mobility, safety and/or upper extremity function for ADL's. Plan of Care: ADL Retraining, Caregiver Training, Functional Mobility, Group Exercise/Act as Ind, UE Funct Exercise/Act Treatment Duration: September 21, 2020 Frequency: At least 5 of 7 days/Wk (IRF) Estimated Hrs Per Day: 1.5 hours per day Agreement: Yes Rehab Potential: Good Time/GCodes Start Time: 11:00 Stop Time: 12:15 Total Time Billed (hr/min): 75 Billed Treatment Time 1, ADL x 60minutes, FA x 15minutes ROSARIO HELLER OT September 11, 2020 14:46
[2020-09-11] MEDS: RIVAROXABAN 20 MG TABLET (XARELTO) PO SCH (16:34)
[2020-09-11 20:00] VITALS: BP 141/63
[2020-09-11] MEDS: MONTELUKAST 10 MG (SINGULAIR) TAB PO SCH (20:19)
--- NOTE | 2020-09-12 06:11 | PM&R Progress Note ---
Subjective HPI/CC On Admission Date Seen by Provider: September 12, 2020 Time Seen by Provider: 09:00 Subjective/Events-last exam 09/12/20: Pt doing pretty well Weaned oxygen off Oxycodone taken at night and decreased pain reports Changed softeners to prn due to loose stools 09/11/20: Pt doing pretty well Weaning O2 off Right knee pain is starting to be an issue Dementia is certainly causing a delay in recovery 09/10/20: Pt doing pretty well Hgb 10.6 Bowels moved today, no major issues Will inquire with Dr. Gilliland regarding her chemotherapy pill 09/09/20: Patient denies issues Pain is an issue when she moves Dementia is an issue Confusion is stable 09/08/20: Patient doing well Memory loss noted Hgb 10 SLUMS [place] intact Eating well BM+ Startles easily Review of Systems General: Fatigue Musculoskeletal: leg pain Neurological: Confusion Objective Exam Vital Signs Vital Signs Date Time Temp Pulse Resp B/P (MAP) Pulse Ox O2 Delivery O2 Flow Rate FiO2 09/12/20 19:08 96 Room Air 09/12/20 08:00 36.1 75 14 129/58 (81) 09/11/20 07:53 2.00 Capillary Refill : General Appearance: No Apparent Distress, WD/WN, Chronically ill HEENT: PERRL/EOMI, Normal ENT Inspection, Pharynx Normal Neck: Full Range of Motion, Normal Inspection, Non Tender, Supple, Carotid Bruit Respiratory: Chest Non Tender, Lungs Clear, Normal Breath Sounds, No Accessory Muscle Use, No Respiratory Distress Cardiovascular: Regular Rate, Rhythm, No Edema, No Gallop, No JVD, No Murmur, Normal Peripheral Pulses Gastrointestinal: Normal Bowel Sounds, No Organomegaly, No Pulsatile Mass, Non Tender, Soft Back: Normal Inspection, No CVA Tenderness, No Vertebral Tenderness Extremity: Normal Capillary Refill, Normal Inspection, Normal Range of Motion, Non Tender, No Calf Tenderness, No Pedal Edema Neurologic/Psychiatric: Alert, Oriented x3, No Motor/Sensory Deficits, Normal Mood/Affect, internal control manager II-XII Norm as Tested, Disoriented, Motor Weakness Skin: Normal Color, Warm/Dry Lymphatic: No Adenopathy Results/Procedures Lab Patient resulted labs reviewed. FIM Transfers Therapy Code Descriptions/Definitions Functional [place] Measure: 0=Not Assessed/NA 4=Minimal Assistance 1=Total Assistance 5=Supervision or Setup 2=Maximal Assistance 6=Modified [place] 3=Moderate Assistance 7=Complete IndependenceSCALE: Activities may be completed with or without assistive devices. 7-Qtoyhjqsvt-mpvvdtf completes the activity by him/herself with no assistance from a helper. 5-Set-up or Clean-up Assistance-helper sets up or cleans up; patient completes activity. [place] assists only prior to or following the activity. 4-Supervision or Touching Assistance-helper provides verbal cues and/or touching/steadying and/or contact guard assistance as patient completes activity. Assistance may be provided throughout the activity or intermittently. 3-Partial/Moderate Assistance-helper does LESS THAN HALF the effort. [place] lifts, holds or supports trunk or limbs, but provides less than half the effort. 2-Substantial/Maximal Assistance-helper does MORE THAN HALF the effort. [place] lifts or holds trunk or limbs and provides more than half the effort. 0-Ptxptxuao-bgrvho does ALL the effort. Patient does none of the effort to complete the activity. Or, the assistance of 2 or more helpers is required for the patient to complete the activity. If activity was not attempted, code reason: 7-Patient Refused. 9-Not Applicable-not attempted and the patient did not perform the activity before the current illness, exacerbation or injury. 10-Not Attempted due to Environmental Limitations-(lack of equipment, weather restraints, etc.). 88-Not Attempted due to Medical Conditions or Safety Concerns. Roll Left to Right (QC): 3 Sit to Lying (QC): 4 Sit to Stand (QC): 4 Chair/Gvv-ab-Palab Xfer(QC): 4 Car Transfer (QC): 3 Gait Training Does the Patient Walk?: Yes Distance: 20' x 2 Walk 10 feet (QC): 4 Walk 50 ft with 2 Turns(QC): 4 Walk 150 ft (QC): 4 Walking 10ft/uneven surface-QC: 3 Gait Assistive Device: FWW Wheelchair Training Does the Pt Use a Wheelchair?: No Wheel 50 ft with 2 turns (QC): 9 Wheel 150 ft (QC): 9 Type of Wheelchair: N/A Stair Training #of Steps: 4 1 Step (curb) (QC): 3 4 Steps (QC): 3 12 Steps (QC): 9 Balance Picking up an Object (QC): 3 (with device and assistance of use) ADL-Treatment Eating (QC): 6 Oral Hygiene (QC): 7 (Pt. declines brushing teeth.) Shower/Bathe Self (QC): 4 (SBA in shower. Pt. utilizes LH sponge but requires cues at times to not bend forward too much.) Upper Body Dressing (QC): 5 Lower Body Dressing (QC): 3 (Mod assist overall with AE.) On/Off Footwear (QC): 3 (Pt. is able to don socks with sock aide, but requires assistance to don shoes.) Toileting Hygiene (QC): 4 (CGA in stance.) Assessment/Plan Assessment and Plan Assess & Plan/Chief Complaint Assessment: Right hip fracture CLL Anemia of chronic disease CKD Stage 4 HTN HLP COPD PVD CAD Carotid stenosis Dementia Plan: IRF protocol Monitor closely Dementia monitoring 09/08/20: Monitor closely Monitor confusion 09/09/20: Monitor closely Fall risk 09/10/20: Monitor closely Monitor pain 09/11/20: Monitor pain Fall risk 09/12/20: Monitor pain Weaned O2 (1) Closed right hip fracture Status: Acute (2) Acute renal failure superimposed on chronic kidney disease Status: Acute (3) Anemia of chronic disease Status: Acute (4) Left knee pain Status: Acute (5) Fall on same level Status: Acute (6) Inflammatory arthropathy Status: Acute (7) HLP (8) Abnormal stress test (9) HTN (hypertension) (10) SOB (shortness of breath) (11) CAD (coronary artery disease) EDWIGE SRINIVASAN DO September 12, 2020 06:11
[2020-09-12 08:00] VITALS: BP 129/58
--- NOTE | 2020-09-12 09:25 | Occupational Ther Daily Note ---
OT Current Status-Daily Note Subjective No pain reported. Mental Status/Objective Patient Orientation: Person ADL-Treatment Therapy Code Descriptions/Definitions Functional [place] Measure: 0=Not Assessed/NA 4=Minimal Assistance 1=Total Assistance 5=Supervision or Setup 2=Maximal Assistance 6=Modified [place] 3=Moderate Assistance 7=Complete IndependenceSCALE: Activities may be completed with or without assistive devices. 5-Udiihmvkml-qamtdyp completes the activity by him/herself with no assistance from a helper. 5-Set-up or Clean-up Assistance-helper sets up or cleans up; patient completes activity. [place] assists only prior to or following the activity. 4-Supervision or Touching Assistance-helper provides verbal cues and/or touching/steadying and/or contact guard assistance as patient completes activity. Assistance may be provided throughout the activity or intermittently. 3-Partial/Moderate Assistance-helper does LESS THAN HALF the effort. [place] lifts, holds or supports trunk or limbs, but provides less than half the effort. 2-Substantial/Maximal Assistance-helper does MORE THAN HALF the effort. [place] lifts or holds trunk or limbs and provides more than half the effort. 9-Unrluvcqr-hdapxm does ALL the effort. Patient does none of the effort to complete the activity. Or, the assistance of 2 or more helpers is required for the patient to complete the activity. If activity was not attempted, code reason: 7-Patient Refused. 9-Not Applicable-not attempted and the patient did not perform the activity before the current illness, exacerbation or injury. 10-Not Attempted due to Environmental Limitations-(lack of equipment, weather restraints, etc.). 88-Not Attempted due to Medical Conditions or Safety Concerns. Oral Hygiene (QC): 4 (SBA to stand at sink to brush teeth and hair.) Upper Body Dressing (QC): 5 (Set up to change shirt.) On/Off Footwear: 4 (SBA and cues to doff/don socks and shoes using AE.) Other Treatment Pt. up in chair. She states that she is very cold. OT offers to assist her with clothing change, but pt. declines. Declines bathing as well. Agrees to ambulate to therapy gym. CGA and cues provided to keep walker in front of her. In gym, pt. unable to state her hip precautions. Keeps closing eyes and breathi ng hard. Sats okay. 99%. Reports no pain in her hip. Pt. practices in gym doffing/donning shoes and socks with AE after education again regarding hip precautions. Pt. is able to do with cues. Completes 10 minutes on arm bike at mod resistance for increased overall endurance. Completes visual perceptual/cognitive task with item placement and color matching. Pt. requires min cues to complete, and continues to shut her eyes. OT asks if pt. is okay. She states yes, that she is just tired. Ambulates back to room and encouraged to brush teeth and hair. Pt. stands at sink to complete these tasks. All needs met up in chair and pt. does request to change shirt. Set up with this task. Education OT Patient Education: Correct positioning, Exercise program, Modified ADL techniques, Progress toward Goal/Update tx plan, Purpose of tx/functional activities, Reviewed precautions, Rehab process, Transfer techniques, Use of adapted equipment Teaching Recipient: Patient Teaching Methods: Demonstration, Discussion Response to Teaching: Verbalize Understanding, Return Demonstration OT Short Term Goals Short Term Goals Oral hygiene: 6 Toileting hygiene: 6 Shower/bathe self: 5 Upper body dressin Lower body dressin Putting on/taking off footwear: 4 OT Ironing Worker Goals Ironing Worker Goals Time Frame: September 21, 2020 Eating (QC): 6 Oral Hygiene (QC): 6 Toileting Hygiene (QC): 6 Shower/Bathe Self (QC): 6 Upper Body Dressing (QC): 6 Lower Body Dressing (QC): 6 On/Off Footwear (QC): 6 Additional Goals: 1-Demonstrate ADL Tasks, 2-Verbalize Understanding, 3-Impro veStrength/Johan 1=Demonstrate adherence to instructed precautions during ADL tasks. 2=Patient will verbalize/demonstrate understanding of assistive devices/modifications for ADL. 3=Patient will improve strength/tolerance for activity to enable patient to perform ADL's. OT Education/Plan Problem List/Assessment Assessment: Decreased Activ Tolerance, Impaired I ADL's, Impaired Self-Care Skills Discharge Recommendations Plan/Recommendations: Continue POC Treatment Plan/Plan of Care Patient would benefit from OT for education, treatment and training to promote independence in ADL's, mobility, safety and/or upper extremity function for ADL's. Plan of Care: ADL Retraining, Caregiver Training, Functional Mobility, Group Exercise/Act as Ind, UE Funct Exercise/Act Treatment Duration: September 21, 2020 Frequency: At least 5 of 7 days/Wk (IRF) Estimated Hrs Per Day: 1.5 hours per day Agreement: Yes Rehab Potential: Good Time/GCodes Start Time: 08:15 Stop Time: 09:30 Total Time Billed (hr/min): 75 Billed Treatment Time 1, ADL x 30minutes, Ex x 15minutes, FA x 30minutes ROSARIO HELLER OT September 12, 2020 09:25
[2020-09-12] MEDS: ACYCLOVIR 400 MG TABLET (ZOVIRAX) PO SCH ×2 (09:26→21:03)
[2020-09-12] MEDS: fluCOnazole (DIFLUCAN) 100 MG TAB PO SCH (09:26)
[2020-09-12] MEDS: HYDROcodone/APAP 5 MG/325 MG (LORTAB) TAB PO PRN (09:26)
[2020-09-12] MEDS: LORATADINE (CLARITIN) 10 MG TAB PO SCH (09:26)
[2020-09-12] MEDS: ATENOLOL 25 MG (TENORMIN) TAB PO SCH (09:26)
[2020-09-12] MEDS: PANTOPRAZOLE 40 MG (PROTONIX) TAB PO SCH (09:26)
[2020-09-12] MEDS: DONEPEZIL 10 MG (ARICEPT) TAB PO SCH (09:26)
[2020-09-12] MEDS: SENNA W/DOCUSATE (SENOKOT S) TABLET PO SCH (09:48)
[2020-09-12] MEDS: polyethylene glycoL POWDER 17 GM (MIRALAX) PACK PO SCH (09:48)
[2020-09-12] MEDS: DOCUSATE SODIUM 100 MG (COLACE) CAP PO SCH (09:48)
[2020-09-12] MEDS: SENNOSIDES 8.6 MG (SENOKOT) TAB PO SCH (09:49)
[2020-09-12] MEDS: VENETOCLAX PO SCH (09:55)
--- NOTE | 2020-09-12 10:20 | Speech Therapy Daily Note ---
Speech Daily Progress Note Subjective Date Seen by Provider: September 12, 2020 Time Seen by Provider: 00:30 Pt was asleep upon ST entering the room. Pt appeared flustered to have to engage in ST services. Pt reported more on the visions she has been having. Objective Patient completed recall of information activities related to daily activities at 80% with minimal cues. Assessment Assessment Current Status: Good Progress Treatment Plan Continue Plan of Care Speech Short Term Goals Short Term Goals Short Term Goals 1) Patient will complete memory tasks related to her daily needs at 80% with minimal cuing. 2) Patient will complete safety awareness tasks related to her daily needs at 80% with minimal cuing. 3) Patient will complete problem solving tasks related to her daily needs at 80% with minimal cuing. Speech Credit Compliance Officer Goals Credit Compliance Officer Goals Patient will improve cognitive-communication abilities in order to complete uzair y living tasks with minimal assist. Speech-Plan Patient/Family Goals Patient/Family Goals: Pt plans to return home to live with her upon D/C from ARU. Treatment Plan Speech Therapy Treatment Plan: Continue Plan of Care Treatment Duration: September 21, 2020 Frequency: 4 times per week (Patient will receive skilled ST 4-5x per week) Estimated Hrs Per Day: .5 hour per day Rehab Potential: Good Barriers to Learning: Medical status and cognitive status. Pt/Family Agrees to Plan: Yes Safety Risks/Education Teaching Recipient: Patient Teaching Methods: Demonstration, Discussion Response to Teaching: Verbalize Understanding, Return Demonstration, Reinforcement Needed Education Topics Provided: Safety awareness and compensatory memory stategies. Time Speech Therapy Time In: 09:30 Speech Therapy Time Out: 10:00 Total Billed Time: 30 Billed Treatment Time 1, YING Saavedra September 12, 2020 10:20
--- NOTE | 2020-09-12 11:54 | Progress Note ---
Standard Progress Note Progress Notes/Assess & Plan Date Seen by a Provider: September 12, 2020 Time Seen by a Provider: 11:53 Progress/Assessment & Plan no complaints RLE--dressing intact. able to perform SLR with improved abduction and adduction strength no calf tenderness s/p R hip bipolar continue PT/OT JACKIE AL MD September 12, 2020 11:54
--- NOTE | 2020-09-12 12:02 | Physical Therapy Daily Note ---
PT Daily Note-Current Subjective Pt sitting in recliner upon arrival. Pt agrees to PT. Pt concerned with pain and that it won't be gone before DC. PT informed pt it will not be gone most likely but should see decrease. Pain Location: Right Location Body Site: Hip Pain Description: [place] Comment: Pt reports no pain at rest but increases w/WB, doesn't rate. Mental Status Patient Orientation: Person, Confused, Place Transfers SCALE: Activities may be completed with or without assistive devices. 1-Nrmpbohfjp-bmrocmv completes the activity by him/herself with no assistance from a helper. 5-Set-up or Clean-up Assistance-helper sets up or cleans up; patient completes a ctivity. [place] assists only prior to or following the activity. 4-Supervision or Touching Assistance-helper provides verbal cues and/or touching/steadying and/or contact guard assistance as patient completes activity. Assistance may be provided throughout the activity or intermittently. 3-Partial/Moderate Assistance-helper does LESS THAN HALF the effort. [place] lifts, holds or supports trunk or limbs, but provides less than half the effort. 2-Substantial/Maximal Assistance-helper does MORE THAN HALF the effort. [place] lifts or holds trunk or limbs and provides more than half the effort. 6-Swfberpme-yfsddh does ALL the effort. Patient does none of the effort to complete the activity. Or, the assistance of 2 or more helpers is required for the patient to complete the activity. If activity was not attempted, code reason: 7-Patient Refused. 9-Not Applicable-not attempted and the patient did not perform the activity before the current illness, exacerbation or injury. 10-Not Attempted due to Environmental Limitations-(lack of equipment, weather restraints, etc.). 88-Not Attempted due to Medical Conditions or Safety Concerns. Sit to Stand (QC): 5 Toilet Transfer (QC): 5 Weight Bearing Right Lower Extremity: Right Weight Bearing/Tolerated Left Lower Extremity: Left Full Weight Bearing Gait Training Does the Patient Walk?: Yes Distance: 150' x2 Walk 10 feet (QC): 5 Walk 50 ft with 2 Turns(QC): 5 Walk 150 ft (QC): 5 Gait Persons Needed: 1 Gait Assistive Device: FWW Wheelchair Training Does the Pt Use a Wheelchair?: No Exercises Seated Therapy Exercises: Ankle pumps, Sit to stand, Long arc quads, Shoulder Abd, Kicking activity Seated Reps: 15 Treatments TF to standing and amb. in hallway. Pt completes Seated Ex before amb. in hallway again. Hip Precautions reviewed w/ pt & Sp. Pt uses BR before returning to recliner to rest. All needs met, call light in hand. Assessment Current Status: Good Progress Pt has moments of confusion and needs VC for safety at times. VC for Hip Precautions but also reviewed w/Sp. Hip kit and BSC ordered for pt at home. PT Watershed Coordinator Goals Watershed Coordinator Goals PT Watershed Coordinator Goals Time Frame: September 29, 2020 Roll Left & Right (QC): 6 Sit to Lying (QC): 6 Lying-Sitting on Side/Bed(QC): 6 Sit to Stand (QC): 6 Chair/Xar-as-[place] Xfer(QC): 6 Toilet Transfer (QC): 6 Car Transfer (QC): 6 Does the Patient Walk: Yes Walk 10 feet (QC): 6 Walk 50ft with 2 Turns (QC): 6 Walk 150 ft (QC): 6 Walking 10ft on Uneven Surface: 6 1 Step (curb) (QC): 6 4 Steps (QC): 6 12 Steps (QC): 9 Picking up an Object (QC): 6 Does the Pt use WC or Scooter?: No Wheel 50 feet with 2 turns (QC: 9 Type: N/A Wheel 150 feet: 9 Type: N/A PT Plan Problem List Problem List: Activity Tolerance, Functional Strength, Safety, Gait Treatment/Plan Treatment Plan: Continue Plan of Care Treatment Plan: Bed Mobility, Concurrent Therapy, Education, Functional Activity Johan, Functional Strength, Group Therapy, Gait, Safety, Therapeutic Exercise, Transfers Treatment Duration: September 29, 2020 Frequency: At least 5 of 7 days/Wk (IRF) Estimated Hrs Per Day: 1.5 hours per day Patient and/or Family Agrees t: Yes Safety Risks/Education Patient Education: Gait Training, Reviewed Precautions, Correct Positioning Teaching Recipient: Patient Teaching Methods: Demonstration, Discussion Response to Teaching: Verbalize Understanding, Return Demonstration Time/GCodes Time In: 1000 Time Out: 1100 Total Billed Treatment Time: 60 Total Billed Treatment 1, FA x2 (30m), GT(15m) & EX (15m) ANDREA CRUZ RADIOGRAPHER MAMMOGRAPHER September 12, 2020 12:02
--- NOTE | 2020-09-12 14:12 | Physical Therapy Daily Note ---
PT Daily Note-Current Subjective Pt sitting in recliner upon arrival. Pt agrees to PT. Mental Status Patient Orientation: Person, Confused, Place Transfers SCALE: Activities may be completed with or without assistive devices. 7-Sgmpevugqc-vjbccgy completes the activity by him/herself with no assistance from a helper. 5-Set-up or Clean-up Assistance-helper sets up or cleans up; patient completes activity. [place] assists only prior to or following the activity. 4-Supervision or Touching Assistance-helper provides verbal cues and/or touching/steadying and/or contact guard assistance as patient completes activity. Assistance may be provided throughout the activity or intermittently. 3-Partial/Moderate Assistance-helper does LESS THAN HALF the effort. [place] lifts, holds or supports trunk or limbs, but provides less than half the effort. 2-Substantial/Maximal Assistance-helper does MORE THAN HALF the effort. [place] lifts or holds trunk or limbs and provides more than half the effort. 3-Laknxynfv-ovcoip does ALL the effort. Patient does none of the effort to complete the activity. Or, the assistance of 2 or more helpers is required for the patient to complete the activity. If activity was not attempted, code reason: 7-Patient Refused. 9-Not Applicable-not attempted and the patient did not perform the activity before the current illness, exacerbation or injury. 10-Not Attempted due to Environmental Limitations-(lack of equipment, weather restraints, etc.). 88-Not Attempted due to Medical Conditions or Safety Concerns. Weight Bearing Right Lower Extremity: Right Weight Bearing/Tolerated Left Lower Extremity: Left Full Weight Bearing Exercises Seated Therapy Exercises: Ankle pumps, Long arc quads, Hip flexion, Kicking activity Seated Reps: 15 Treatments BONDING MOLDER issued and reviewed written HEP for Supine & Seated EX. Pt resting at end of tx with all needs met, call light in hand. Assessment Current Status: Good Progress Pt given VC for Hip Precautions again. 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 Retirement Goals PT Manual Machinist Goals Time Frame: September 29, 2020 Roll Left & Right (QC): 6 Sit to Lying (QC): 6 Lying-Sitting on Side/Bed(QC): 6 Sit to Stand (QC): 6 Chair/Zec-iv-Efrmx Xfer(QC): 6 Toilet Transfer (QC): 6 Car Transfer (QC): 6 Does the Patient Walk: Yes Walk 10 feet (QC): 6 Walk 50ft with 2 Turns (QC): 6 Walk 150 ft (QC): 6 Walking 10ft on Uneven Surface: 6 1 Step (curb) (QC): 6 4 Steps (QC): 6 12 Steps (QC): 9 Picking up an Object (QC): 6 Does the Pt use WC or Scooter?: No Wheel 50 feet with 2 turns (QC: 9 Type: N/A Wheel 150 feet: 9 Type: N/A PT Plan Problem List Problem List: Activity Tolerance Treatment/Plan Treatment Plan: Continue Plan of Care Treatment Plan: Bed Mobility, Concurrent Therapy, Education, Functional Activity Johan, Functional Strength, Group Therapy, Gait, Safety, Therapeutic Exercise, Transfers Treatment Duration: September 29, 2020 Frequency: At least 5 of 7 days/Wk (IRF) Estimated Hrs Per Day: 1.5 hours per day Patient and/or Family Agrees t: Yes Safety Risks/Education Patient Education: Issued Written HEP, Reviewed Precautions Teaching Recipient: Patient Teaching Methods: Discussion Response to Teaching: Verbalize Understanding Time/GCodes Time In: 1300 Time Out: 1315 Total Billed Treatment Time: 15 Total Billed Treatment 1, EX (15m) ANDREA CRUZ PTA September 12, 2020 14:11
[2020-09-12] MEDS ORDERED: SENNOSIDES 8.6 MG (SENOKOT) TAB PO PRN (16:15)
[2020-09-12] MEDS ORDERED: SENNA W/DOCUSATE (SENOKOT S) TABLET PO PRN (16:15)
[2020-09-12] MEDS ORDERED: polyethylene glycoL POWDER 17 GM (MIRALAX) PACK PO PRN (16:15)
[2020-09-12] MEDS ORDERED: DOCUSATE SODIUM 100 MG (COLACE) CAP PO PRN (16:15)
[2020-09-12] MEDS: RIVAROXABAN 20 MG TABLET (XARELTO) PO SCH (16:49)
[2020-09-12 20:00] VITALS: BP 175/65
[2020-09-12] MEDS: MONTELUKAST 10 MG (SINGULAIR) TAB PO SCH (21:03)
[2020-09-13 08:00] VITALS: BP_SYST 108; BP_SYST 129; BP_DIAS 58; BP_DIAS 80
[2020-09-13] MEDS: VENETOCLAX PO SCH (08:07)
[2020-09-13] MEDS: DONEPEZIL 10 MG (ARICEPT) TAB PO SCH (08:09)
[2020-09-13] MEDS: PANTOPRAZOLE 40 MG (PROTONIX) TAB PO SCH (08:09)
[2020-09-13] MEDS: LORATADINE (CLARITIN) 10 MG TAB PO SCH (08:09)
[2020-09-13] MEDS: fluCOnazole (DIFLUCAN) 100 MG TAB PO SCH (08:09)
[2020-09-13] MEDS: ACYCLOVIR 400 MG TABLET (ZOVIRAX) PO SCH ×2 (08:09→21:16)
[2020-09-13] MEDS: ATENOLOL 25 MG (TENORMIN) TAB PO SCH (08:09)
--- NOTE | 2020-09-13 08:23 | Speech Therapy Daily Note ---
Speech Daily Progress Note Subjective Date Seen by Provider: September 13, 2020 Time Seen by Provider: 00:30 Pt was alert and agreed to ST services. Pt reported being "not ready to leave" the ARU. Pt reported an episode of incontinence this morning. Objective Patient completed safety awareness activities related to their daily activities at 80% with moderate cues. Assessment Assessment Current Status: Good Progress Treatment Plan Continue Plan of Care Speech Short Term Goals Short Term Goals Short Term Goals 1) Patient will complete memory tasks related to her daily needs at 80% with minimal cuing. 2) Patient will complete safety awareness tasks related to her daily needs at 80% with minimal cuing. 3) Patient will complete problem solving tasks related to her daily needs at 80% with minimal cuing. Speech Crm Specialist Goals Retirement Goals Patient will improve cognitive-communication abilities in order to complete daily living tasks with minimal assist. Speech-Plan Patient/Family Goals Patient/Family Goals: Pt plans to return home with her spouse who will aid in her daily needs. Treatment Plan Speech Therapy Treatment Plan: Continue Plan of Care Treatment Duration: September 21, 2020 Frequency: 4 times per week (Patient will receive skilled ST 4-5x per week) Estimated Hrs Per Day: .5 hour per day Rehab Potential: Good Barriers to Learning: Medical status and age Pt/Family Agrees to Plan: Yes Safety Risks/Education Teaching Recipient: Patient Teaching Methods: Demonstration, Discussion Response to Teaching: Verbalize Understanding, Return Demonstration, Reinforcement Needed Education Topics Provided: Safety awareness and cognitive communication strategies Time Speech Therapy Time In: 09:30 Speech Therapy Time Out: 10:00 Total Billed Time: 30 Billed Treatment Time 1, YING Saavedra September 13, 2020 08:23
--- NOTE | 2020-09-13 09:43 | PM&R Progress Note ---
Subjective HPI/CC On Admission Date Seen by Provider: September 13, 2020 Time Seen by Provider: 09:50 Subjective/Events-last exam 09/13/20: Pt confused but doing well DC plan for Thursday with Bowels are moving well No issues 09/12/20: Pt doing pretty well Weaned oxygen off Oxycodone taken at night and decreased pain reports Changed softeners to prn due to loose stools 09/11/20: Pt doing pretty well Weaning O2 off Right knee pain is starting to be an issue Dementia is certainly causing a delay in recovery 09/10/20: Pt doing pretty well Hgb 10.6 Bowels moved today, no major issues Will inquire with Dr. Gilliland regarding her chemotherapy pill 09/09/20: Patient denies issues Pain is an issue when she moves Dementia is an issue Confusion is stable 09/08/20: Patient doing well Memory loss noted Hgb 10 SLUMS [place] intact Eating well BM+ Startles easily Review of Systems General: Fatigue, Malaise Neurological: Weakness, Incoordination Objective Exam Vital Signs Vital Signs Date Time Temp Pulse Resp B/P (MAP) Pulse Ox O2 Delivery O2 Flow Rate FiO2 09/13/20 22:01 95 Room Air 09/13/20 20:16 37.2 09/13/20 20:00 76 20 122/76 (91) 09/11/20 07:53 2.00 Capillary Refill : General Appearance: No Apparent Distress, WD/WN, Chronically ill HEENT: PERRL/EOMI, Normal ENT Inspection, Pharynx Normal Neck: Full Range of Motion, Normal Inspection, Non Tender, Supple, Carotid Bruit Respiratory: Chest Non Tender, Lungs Clear, Normal Breath Sounds, No Accessory Muscle Use, No Respiratory Distress Cardiovascular: Regular Rate, Rhythm, No Edema, No Gallop, No JVD, No Murmur, Normal Peripheral Pulses Gastrointestinal: Normal Bowel Sounds, No Organomegaly, No Pulsatile Mass, Non Tender, Soft Back: Normal Inspection, No CVA Tenderness, No Vertebral Tenderness Extremity: Normal Capillary Refill, Normal Inspection, Normal Range of Motion, Non Tender, No Calf Tenderness, No Pedal Edema Neurologic/Psychiatric: Alert, Oriented x3, No Motor/Sensory Deficits, Normal Mood/Affect, territory account manager II-XII Norm as Tested, Disoriented, Motor Weakness Skin: Normal Color, Warm/Dry Lymphatic: No Adenopathy Results/Procedures Lab Patient resulted labs reviewed. FIM Transfers Therapy Code Descriptions/Definitions Functional [place] Measure: 0=Not Assessed/NA 4=Minimal Assistance 1=Total Assistance 5=Supervision or Setup 2=Maximal Assistance 6=Modified [place] 3=Moderate Assistance 7=Complete IndependenceSCALE: Activities may be completed with or without assistive devices. 0-Szagwywopx-eclpokq completes the activity by him/herself with no assistance from a helper. 5-Set-up or Clean-up Assistance-helper sets up or cleans up; patient completes activity. [place] assists only prior to or following the activity. 4-Supervision or Touching Assistance-helper provides verbal cues and/or touching/steadying and/or contact guard assistance as patient completes activity. Assistance may be provided throughout the activity or intermittently. 3-Partial/Moderate Assistance-helper does LESS THAN HALF the effort. [place] lifts, holds or supports trunk or limbs, but provides less than half the effort. 2-Substantial/Maximal Assistance-helper does MORE THAN HALF the effort. [place] lifts or holds trunk or limbs and provides more than half the effort. 3-Hxkrnenfq-jawasa does ALL the effort. Patient does none of the effort to complete the activity. Or, the assistance of 2 or more helpers is required for the patient to complete the activity. If activity was not attempted, code reason: 7-Patient Refused. 9-Not Applicable-not attempted and the patient did not perform the activity bef ore the current illness, exacerbation or injury. 10-Not Attempted due to Environmental Limitations-(lack of equipment, weather r estraints, etc.). 88-Not Attempted due to Medical Conditions or Safety Concerns. Roll Left to Right (QC): 3 Sit to Lying (QC): 4 Sit to Stand (QC): 5 Chair/Yfa-aj-Rjkke Xfer(QC): 4 Car Transfer (QC): 3 Gait Training Does the Patient Walk?: Yes Distance: 150' x2 Walk 10 feet (QC): 5 Walk 50 ft with 2 Turns(QC): 5 Walk 150 ft (QC): 5 Walking 10ft/uneven surface-QC: 3 Gait Persons Needed: 1 Gait Assistive Device: FWW Wheelchair Training Does the Pt Use a Wheelchair?: No Wheel 50 ft with 2 turns (QC): 9 Wheel 150 ft (QC): 9 Type of Wheelchair: N/A Stair Training #of Steps: 4 1 Step (curb) (QC): 3 4 Steps (QC): 3 12 Steps (QC): 9 Balance Picking up an Object (QC): 3 (with device and assistance of use) ADL-Treatment Eating (QC): 6 Oral Hygiene (QC): 4 (SBA to stand at sink to brush teeth and hair.) Shower/Bathe Self (QC): 4 (SBA in shower. Pt. utilizes LH sponge but requires cues at times to not bend forward too much.) Upper Body Dressing (QC): 5 (Set up to change shirt.) Lower Body Dressing (QC): 3 (Mod assist overall with AE.) On/Off Footwear (QC): 4 (SBA and cues to doff/don socks and shoes using AE.) Toileting Hygiene (QC): 4 (CGA in stance.) Assessment/Plan Assessment and Plan Assess & Plan/Chief Complaint Assessment: Right hip fracture CLL Anemia of chronic disease CKD Stage 4 HTN HLP COPD PVD CAD Carotid stenosis Dementia Plan: IRF protocol Monitor closely Dementia monitoring 09/08/20: Monitor closely Monitor confusion 09/09/20: Monitor closely Fall risk 09/10/20: Monitor closely Monitor pain 09/11/20: Monitor pain Fall risk 09/12/20: Monitor pain Weaned O2 09/13/20: DC next week Monitor BP (1) Closed right hip fracture Status: Acute (2) Acute renal failure superimposed on chronic kidney disease Status: Acute (3) Anemia of chronic disease Status: Acute (4) Left knee pain Status: Acute (5) Fall on same level Status: Acute (6) Inflammatory arthropathy Status: Acute (7) HLP (8) Abnormal stress test (9) HTN (hypertension) (10) SOB (shortness of breath) (11) CAD (coronary artery disease) EDWIGE SRINIVASAN DO September 13, 2020 09:43
[2020-09-13] MEDS: HYDROcodone/APAP 5 MG/325 MG (LORTAB) TAB PO PRN ×2 (10:00→16:53)
[2020-09-13] MEDS: LOPERAMIDE 2 MG (IMODIUM) TABLET PO PRN ×2 (11:56→12:56)
--- NOTE | 2020-09-13 13:38 | Occupational Ther Daily Note ---
OT Current Status-Daily Note Subjective Pt. does not report pain level, but does state that she has some pain in right hip. Declines pain medication but nursing notified of pain. Mental Status/Objective Patient Orientation: Person, Place ADL-Treatment Therapy Code Descriptions/Definitions Functional [place] Measure: 0=Not Assessed/NA 4=Minimal Assistance 1=Total Assistance 5=Supervision or Setup 2=Maximal Assistance 6=Modified [place] 3=Moderate Assistance 7=Complete IndependenceSCALE: Activities may be completed with or without assistive devices. 2-Rjxawfusfd-dhnyqmw completes the activity by him/herself with no assistance from a helper. 5-Set-up or Clean-up Assistance-helper sets up or cleans up; patient completes activity. [place] assists only prior to or following the activity. 4-Supervision or Touching Assistance-helper provides verbal cues and/or touching/steadying and/or contact guard assistance as patient completes activity. Assistance may be provided throughout the activity or intermittently. 3-Partial/Moderate Assistance-helper does LESS THAN HALF the effort. [place] lifts, holds or supports trunk or limbs, but provides less than half the effort. 2-Substantial/Maximal Assistance-helper does MORE THAN HALF the effort. [place] lifts or holds trunk or limbs and provides more than half the effort. 1-Gtycxgfbn-hvuwrt does ALL the effort. Patient does none of the effort to complete the activity. Or, the assistance of 2 or more helpers is required for the patient to complete the activity. If activity was not attempted, code reason: 7-Patient Refused. 9-Not Applicable-not attempted and the patient did not perform the activity before the current illness, exacerbation or injury. 10-Not Attempted due to Environmental Limitations-(lack of equipment, weather restraints, etc.). 88-Not Attempted due to Medical Conditions or Safety Concerns. Eating (QC): 6 Oral Hygiene (QC): 7 Shower/Bathe Self (QC): 7 (Pt. states that she was incontinent last night, and therefore was "cleaned up." Declines showering or sponge bathing this date with OT.) Upper Body Dressing (QC): 5 Lower Body Dressing (QC): 4 (SBA with AE. Pt. requires cues to rememeber how to use AE.) On/Off Footwear: 4 (SBA with AE to don socks and shoes.) Toileting Hygiene (QC): 3 (Min assist for balance in stance. Pt. able to doff pants and cleanse sola area after having BM. Donned pants in stance.) Toilet Transfer (QC): 4 (CGA) Other Treatment Pt. declines bathing but agrees to work with OT and don fresh clothing. Ambulated with walker with CGA to therapy gym. Pt. completed pulleys for reciprocal movements, bilateral UE, back and forth for UE stretch. Tolerated well. Donned 1 lb. wrist weights and completed fine motor task with therapy pegs. Ambulated back to room with CGA and walker. All needs met up in chair. Education OT Patient Education: Correct positioning, Exercise program, Modified ADL techniques, Progress toward Goal/Update tx plan, Purpose of tx/functional activities, Reviewed precautions, Rehab process, Transfer techniques Teaching Recipient: Patient Teaching Methods: Demonstration, Discussion Response to Teaching: Verbalize Understanding, Return Demonstration OT Short Term Goals Short Term Goals Oral hygiene: 6 Toileting hygiene: 6 Shower/bathe self: 5 Upper body dressin Lower body dressin Putting on/taking off footwear: 4 OT Skilled Nursing Goals Skilled Nursing Goals Time Frame: September 21, 2020 Eating (QC): 6 Oral Hygiene (QC): 6 Toileting Hygiene (QC): 6 Shower/Bathe Self (QC): 6 Upper Body Dressing (QC): 6 Lower Body Dressing (QC): 6 On/Off Footwear (QC): 6 Additional Goals: 1-Demonstrate ADL Tasks, 2-Verbalize Understanding, 3- ImproveStrength/Johan 1=Demonstrate adherence to instructed precautions during ADL tasks. 2=Patient will verbalize/demonstrate understanding of assistive devices/modifications for ADL. 3=Patient will improve strength/tolerance for activity to enable patient to perform ADL's. OT Education/Plan Problem List/Assessment Assessment: Decreased Activ Tolerance, Impaired I ADL's, Impaired Self-Care Skills Discharge Recommendations Plan/Recommendations: Continue POC Therapy Discharge Recommendati: Post Acute OT Equpiment Recommendations-D/C: Hip Kit Treatment Plan/Plan of Care Treatment,Training & Education: Yes Patient would benefit from OT for education, treatment and training to promote independence in ADL's, mobility, safety and/or upper extremity function for ADL's. Plan of Care: ADL Retraining, Caregiver Training, Functional Mobility, Group Exercise/Act as Ind, UE Funct Exercise/Act Treatment Duration: September 21, 2020 Frequency: At least 5 of 7 days/Wk (IRF) Estimated Hrs Per Day: 1.5 hours per day Agreement: Yes Rehab Potential: Good Time/GCodes Start Time: 08:15 Stop Time: 09:30 Total Time Billed (hr/min): 75 Billed Treatment Time 1, ADL x 45minutes, FA x 30minutes ROSARIO HELLER OT September 13, 2020 13:38
--- NOTE | 2020-09-13 15:22 | Physical Therapy Daily Note ---
PT Daily Note-Current Subjective Pt sitting in recliner upon arrival. Pt agrees to PT but reports having headache/migraine and wanted to stay in room where lights could be dimmed. Nurse had given pain med shortly before tx. Pain Location Body Site: Head Pain Description: Ache Mental Status Patient Orientation: Person, Place, Situation Transfers SCALE: Activities may be completed with or without assistive devices. 7-Uzgnpkidya-minjjbp completes the activity by him/herself with no assistance from a helper. 5-Set-up or Clean-up Assistance-helper sets up or cleans up; patient completes activity. [place] assists only prior to or following the activity. 4-Supervision or Touching Assistance-helper provides verbal cues and/or touching/steadying and/or contact guard assistance as patient completes activity. Assistance may be provided throughout the activity or intermittently. 3-Partial/Moderate Assistance-helper does LESS THAN HALF the effort. [place] lifts, holds or supports trunk or limbs, but provides less than half the effort. 2-Substantial/Maximal Assistance-helper does MORE THAN HALF the effort. [place] lifts or holds trunk or limbs and provides more than half the effort. 9-Zycxlobyz-ofypxu does ALL the effort. Patient does none of the effort to complete the activity. Or, the assistance of 2 or more helpers is required for the patient to complete the activity. If activity was not attempted, code reason: 7-Patient Refused. 9-Not Applicable-not attempted and the patient did not perform the activity before the current illness, exacerbation or injury. 10-Not Attempted due to Environmental Limitations-(lack of equipment, weather restraints, etc.). 88-Not Attempted due to Medical Conditions or Safety Concerns. Sit to Stand (QC): 5 Toilet Transfer (QC): 5 Weight Bearing Right Lower Extremity: Right Weight Bearing/Tolerated Left Lower Extremity: Left Full Weight Bearing Gait Training Does the Patient Walk?: Yes Distance: 15' x2 Walk 10 feet (QC): 5 Gait Persons Needed: 1 Gait Assistive Device: FWW Pt walks with analgetic gait. Wheelchair Training Does the Pt Use a Wheelchair?: No Exercises Supine Ex: Ankle pumps, Quad Set, Glut sets, Heel Slides, Straight leg raise, Hip abd/add Supine Reps: 15 Seated Therapy Exercises: Ankle pumps, Long arc quads, Hip flexion Seated Reps: 15 Treatments [id number]: Pt completes Supine & Seated Ex in recliner with RB as needed. Pt asks to use BR then returns recliner at end of tx with all need met, call light in hand. [id number]: Pt and family are visiting upon arrival. Family asks questions regarding continued therapy after DC. RECREATIONAL SPORTS DIRECTOR explains HH vs. OP PT. Also progress is discussed with pt present. Pt asks to use BR as family leaves then to return to bed to lay Supine for rest. All needs met, call light in hand. Assessment Current Status: Good Progress Pain limits tx but pt does her best to work through it. PT Fire Code Inspector Goals Fire Code Inspector Goals PT Alf Goals Time Frame: September 29, 2020 Roll Left & Right (QC): 6 Sit to Lying (QC): 6 Lying-Sitting on Side/Bed(QC): 6 Sit to Stand (QC): 6 Chair/Pli-ad-Qjuka Xfer(QC): 6 Toilet Transfer (QC): 6 Car Transfer (QC): 6 Does the Patient Walk: Yes Walk 10 feet (QC): 6 Walk 50ft with 2 Turns (QC): 6 Walk 150 ft (QC): 6 Walking 10ft on Uneven Surface: 6 1 Step (curb) (QC): 6 4 Steps (QC): 6 12 Steps (QC): 9 Picking up an Object (QC): 6 Does the Pt use WC or Scooter?: No Wheel 50 feet with 2 turns (QC: 9 Type: N/A Wheel 150 feet: 9 Type: N/A PT Plan Problem List Problem List: Activity Tolerance, Functional Strength Treatment/Plan Treatment Plan: Continue Plan of Care Treatment Plan: Bed Mobility, Concurrent Therapy, Education, Functional Activity Johan, Functional Strength, Group Therapy, Gait, Safety, Therapeutic Exercise, Transfers Treatment Duration: September 29, 2020 Frequency: At least 5 of 7 days/Wk (IRF) Estimated Hrs Per Day: 1.5 hours per day Patient and/or Family Agrees t: Yes Time/GCodes Time In: 1015 Time Out: 1455 Total Billed Treatment Time: 75 Total Billed Treatment [id number]: 1, FA (15m) & EX x2 (30m) [id number]: 1, FA x2 (30m) ANDREA CRUZ RECREATIONAL SPORTS DIRECTOR September 13, 2020 15:22
--- NOTE | 2020-09-13 16:49 | Progress Note ---
Standard Progress Note Progress Notes/Assess & Plan Date Seen by a Provider: September 13, 2020 Time Seen by a Provider: 16:48 Progress/Assessment & Plan no complaints RLE--dressing intact. able to perform SLR with improved abduction and adduction strength no calf tenderness s/p R hip bipolar continue PT/OT Final Diagnosis resting RLE no calf tenderness Neg Ez's s/p R bipolar continue PT/OT JACKIE AL MD September 13, 2020 16:48
[2020-09-13] MEDS: RIVAROXABAN 20 MG TABLET (XARELTO) PO SCH (16:53)
[2020-09-13 20:00] VITALS: BP 122/76
[2020-09-13] MEDS: MONTELUKAST 10 MG (SINGULAIR) TAB PO SCH (21:16)
--- NOTE | 2020-09-14 06:17 | PM&R Progress Note ---
Subjective HPI/CC On Admission Date Seen by Provider: September 14, 2020 Time Seen by Provider: 12:30 Subjective/Events-last exam 09/14/2020: Patient doing very well Son at the bedside Right leg is a bit swollen but she kept her stockings on through the night so we will monitor that since they have been removed No pain is reported Has some questions about home health 09/13/20: Pt confused but doing well DC plan for Thursday with Bowels are moving well No issues 09/12/20: Pt doing pretty well Weaned oxygen off Oxycodone taken at night and decreased pain reports Changed softeners to prn due to loose stools 09/11/20: Pt doing pretty well Weaning O2 off Right knee pain is starting to be an issue Dementia is certainly causing a delay in recovery 09/10/20: Pt doing pretty well Hgb 10.6 Bowels moved today, no major issues Will inquire with Dr. Gilliland regarding her chemotherapy pill 09/09/20: Patient denies issues Pain is an issue when she moves Dementia is an issue Confusion is stable 09/08/20: Patient doing well Memory loss noted Hgb 10 SLUMS Eduar intact Eating well BM+ Startles easily Review of Systems Musculoskeletal: leg pain Neurological: Confusion Objective Exam Vital Signs Vital Signs Date Time Temp Pulse Resp B/P (MAP) Pulse Ox O2 Delivery O2 Flow Rate FiO2 09/14/20 09:00 Room Air 09/14/20 08:00 35.8 75 20 143/66 (91) 95 09/11/20 07:53 2.00 Capillary Refill : General Appearance: No Apparent Distress, WD/WN, Chronically ill HEENT: PERRL/EOMI, Normal ENT Inspection, Pharynx Normal Neck: Full Range of Motion, Normal Inspection, Non Tender, Supple, Carotid Bruit Respiratory: Chest Non Tender, Lungs Clear, Normal Breath Sounds, No Accessory Muscle Use, No Respiratory Distress Cardiovascular: Regular Rate, Rhythm, No Edema, No Gallop, No JVD, No Murmur, Normal Peripheral Pulses Gastrointestinal: Normal Bowel Sounds, No Organomegaly, No Pulsatile Mass, Non Tender, Soft Back: Normal Inspection, No CVA Tenderness, No Vertebral Tenderness Extremity: Normal Capillary Refill, Normal Inspection, Normal Range of Motion, Non Tender, No Calf Tenderness, No Pedal Edema Neurologic/Psychiatric: Alert, Oriented x3, No Motor/Sensory Deficits, Normal Mood/Affect, messaging architect II-XII Norm as Tested, Disoriented, Motor Weakness Skin: Normal Color, Warm/Dry Lymphatic: No Adenopathy Results/Procedures Lab Patient resulted labs reviewed. FIM Transfers Therapy Code Descriptions/Definitions Functional [place] Measure: 0=Not Assessed/NA 4=Minimal Assistance 1=Total Assistance 5=Supervision or Setup 2=Maximal Assistance 6=Modified [place] 3=Moderate Assistance 7=Complete IndependenceSCALE: Activities may be completed with or without assistive devices. 3-Ldgjdsnfrf-hbokerg completes the activity by him/herself with no assistance from a helper. 5-Set-up or Clean-up Assistance-helper sets up or cleans up; patient completes activity. [place] assists only prior to or following the activity. 4-Supervision or Touching Assistance-helper provides verbal cues and/or touching/steadying and/or contact guard assistance as patient completes activity. Assistance may be provided throughout the activity or intermittently. 3-Partial/Moderate Assistance-helper does LESS THAN HALF the effort. [place] lifts, holds or supports trunk or limbs, but provides less than half the effort. 2-Substantial/Maximal Assistance-helper does MORE THAN HALF the effort. [place] lifts or holds trunk or limbs and provides more than half the effort. 3-Zjndtctdc-iolunz does ALL the effort. Patient does none of the effort to complete the activity. Or, the assistance of 2 or more helpers is required for the patient to complete the activity. If activity was not attempted, code reason: 7-Patient Refused. 9-Not Applicable-not attempted and the patient did not perform the activity before the current illness, exacerbation or injury. 10-Not Attempted due to Environmental Limitations-(lack of equipment, weather restraints, etc.). 88-Not Attempted due to Medical Conditions or Safety Concerns. Roll Left to Right (QC): 3 Sit to Lying (QC): 4 Sit to Stand (QC): 5 Chair/Edr-cn-Bwsyf Xfer(QC): 4 Car Transfer (QC): 3 Gait Training Does the Patient Walk?: Yes Distance: 15' x2 Walk 10 feet (QC): 5 Walk 50 ft with 2 Turns(QC): 5 Walk 150 ft (QC): 5 Walking 10ft/uneven surface-QC: 3 Gait Persons Needed: 1 Gait Assistive Device: FWW Wheelchair Training Does the Pt Use a Wheelchair?: No Wheel 50 ft with 2 turns (QC): 9 Wheel 150 ft (QC): 9 Type of Wheelchair: N/A Stair Training #of Steps: 4 1 Step (curb) (QC): 3 4 Steps (QC): 3 12 Steps (QC): 9 Balance Picking up an Object (QC): 3 (with device and assistance of use) ADL-Treatment Eating (QC): 6 Oral Hygiene (QC): 7 Shower/Bathe Self (QC): 7 (Pt. states that she was incontinent last night, and therefore was "cleaned up." Declines showering or sponge bathing this date with OT.) Upper Body Dressing (QC): 5 Lower Body Dressing (QC): 4 (SBA with AE. Pt. requires cues to rememeber how to use AE.) On/Off Footwear (QC): 4 (SBA with AE to don socks and shoes.) Toileting Hygiene (QC): 3 (Min assist for balance in stance. Pt. able to doff pants and cleanse sola area after having BM. Donned pants in stance.) Toilet Transfer (QC): 4 (CGA) Assessment/Plan Assessment and Plan Assess & Plan/Chief Complaint Assessment: Right hip fracture CLL Anemia of chronic disease CKD Stage 4 HTN HLP COPD PVD CAD Carotid stenosis Dementia Plan: IRF protocol Monitor closely Dementia monitoring 09/08/20: Monitor closely Monitor confusion 09/09/20: Monitor closely Fall risk 09/10/20: Monitor closely Monitor pain 09/11/20: Monitor pain Fall risk 09/12/20: Monitor pain Weaned O2 09/13/20: DC next week Monitor BP 09/14/2020: Much improved status Discharge on Thursday with home health (1) Closed right hip fracture Status: Acute (2) Acute renal failure superimposed on chronic kidney disease Status: Acute (3) Anemia of chronic disease Status: Acute (4) Left knee pain Status: Acute (5) Fall on same level Status: Acute (6) Inflammatory arthropathy Status: Acute (7) HLP (8) Abnormal stress test (9) HTN (hypertension) (10) SOB (shortness of breath) (11) CAD (coronary artery disease) EDWIGE SRINIVASAN DO September 14, 2020 06:17
[2020-09-14] MEDS: ACYCLOVIR 400 MG TABLET (ZOVIRAX) PO SCH ×2 (07:45→21:32)
[2020-09-14] MEDS: PANTOPRAZOLE 40 MG (PROTONIX) TAB PO SCH (07:45)
[2020-09-14] MEDS: ATENOLOL 25 MG (TENORMIN) TAB PO SCH (07:45)
[2020-09-14] MEDS: fluCOnazole (DIFLUCAN) 100 MG TAB PO SCH (07:45)
[2020-09-14] MEDS: LORATADINE (CLARITIN) 10 MG TAB PO SCH (07:45)
[2020-09-14] MEDS: DONEPEZIL 10 MG (ARICEPT) TAB PO SCH (07:45)
[2020-09-14] MEDS: VENETOCLAX PO SCH (07:46)
[2020-09-14 08:00] VITALS: BP 143/66
[2020-09-14] MEDS: HYDROcodone/APAP 5 MG/325 MG (LORTAB) TAB PO PRN (08:38)
[2020-09-14] MEDS: LOPERAMIDE 2 MG (IMODIUM) TABLET PO PRN (08:38)
--- NOTE | 2020-09-14 09:01 | Physical Therapy Daily Note ---
PT Daily Note-Current Subjective Pt sitting in recliner eating breakfast upon arrival. Pt agrees to PT. Pain Numeric Pain Scale: 8 Location: Right Location Body Site: Hip Pain Description: Ache, Tightness Mental Status Patient Orientation: Person, Confused, Place Transfers SCALE: Activities may be completed with or without assistive devices. 6-Gvnfhvndgj-siaixsf completes the activity by him/herself with no assistance from a helper. 5-Set-up or Clean-up Assistance-helper sets up or cleans up; patient completes activity. [place] assists only prior to or following the activity. 4-Supervision or Touching Assistance-helper provides verbal cues and/or touching/steadying and/or contact guard assistance as patient completes activity. Assistance may be provided throughout the activity or intermittently. 3-Partial/Moderate Assistance-helper does LESS THAN HALF the effort. [place] lifts, holds or supports trunk or limbs, but provides less than half the effort. 2-Substantial/Maximal Assistance-helper does MORE THAN HALF the effort. [place] lifts or holds trunk or limbs and provides more than half the effort. 4-Fpmsveung-fwtsck does ALL the effort. Patient does none of the effort to complete the activity. Or, the assistance of 2 or more helpers is required for the patient to complete the activity. If activity was not attempted, code reason: 7-Patient Refused. 9-Not Applicable-not attempted and the patient did not perform the activity before the current illness, exacerbation or injury. 10-Not Attempted due to Environmental Limitations-(lack of equipment, weather restraints, etc.). 88-Not Attempted due to Medical Conditions or Safety Concerns. Sit to Stand (QC): 5 Toilet Transfer (QC): 5 Weight Bearing Right Lower Extremity: Right Weight Bearing/Tolerated Left Lower Extremity: Left Full Weight Bearing Gait Training Does the Patient Walk?: Yes Distance: 150' x2 Walk 10 feet (QC): 5 Walk 50 ft with 2 Turns(QC): 5 Walk 150 ft (QC): 5 Gait Persons Needed: 1 Gait Assistive Device: FWW Wheelchair Training Does the Pt Use a Wheelchair?: No Exercises Seated Therapy Exercises: Ankle pumps, Long arc quads, Hip flexion Seated Reps: 20 Treatments Pt finishes breakfast as MAGNETIZER and pt discuss progress and what pt would like to see improve. TF to standing and uses BR. Amb. in hallway and completes Seated Ex. Pt amb. in hallway and returns to room to rest. All needs met, call light in hand. Assessment Current Status: Fair Progress Pt needs VC at times for safety and sequencing. PT Fpc Goals Fpc Goals PT Chief Innovation Officer Goals Time Frame: September 29, 2020 Roll Left & Right (QC): 6 Sit to Lying (QC): 6 Lying-Sitting on Side/Bed(QC): 6 Sit to Stand (QC): 6 Chair/Khb-sr-Zaahc Xfer(QC): 6 Toilet Transfer (QC): 6 Car Transfer (QC): 6 Does the Patient Walk: Yes Walk 10 feet (QC): 6 Walk 50ft with 2 Turns (QC): 6 Walk 150 ft (QC): 6 Walking 10ft on Uneven Surface: 6 1 Step (curb) (QC): 6 4 Steps (QC): 6 12 Steps (QC): 9 Picking up an Object (QC): 6 Does the Pt use WC or Scooter?: No Wheel 50 feet with 2 turns (QC: 9 Type: N/A Wheel 150 feet: 9 Type: N/A PT Plan Problem List Problem List: Activity Tolerance, Functional Strength, Gait Treatment/Plan Treatment Plan: Continue Plan of Care Treatment Plan: Bed Mobility, Concurrent Therapy, Education, Functional Activity Johan, Functional Strength, Group Therapy, Gait, Safety, Therapeutic Exercise, Transfers Treatment Duration: September 29, 2020 Frequency: At least 5 of 7 days/Wk (IRF) Estimated Hrs Per Day: 1.5 hours per day Patient and/or Family Agrees t: Yes Safety Risks/Education Patient Education: Gait Training, Transfer Techniques, Correct Positioning, Safety Issues Teaching Recipient: Patient Teaching Methods: Discussion Response to Teaching: Verbalize Understanding Time/GCodes Time In: 800 Time Out: 900 Total Billed Treatment Time: 60 Total Billed Treatment 1, GT (20m), FA x2 (25m) & EX (15m) ANDREA CRUZ PTA September 14, 2020 09:01
--- NOTE | 2020-09-14 10:23 | Occupational Ther Daily Note ---
OT Current Status-Daily Note Subjective Pt seated in recliner, agreeable to OT Tx with moderate encouragement. Pt indicates she is tired and her back is hurting, wishes to rest at this time. OT informed pt about rehab schedule, stating this therapist does not have time to come back later. Pt agreeable. ADL-Treatment Therapy Code Descriptions/Definitions Functional [place] Measure: 0=Not Assessed/NA 4=Minimal Assistance 1=Total Assistance 5=Supervision or Setup 2=Maximal Assistance 6=Modified [place] 3=Moderate Assistance 7=Complete IndependenceSCALE: Activities may be completed with or without assistive devices. 2-Nbwyhwxrku-lmuvvzw completes the activity by him/herself with no assistance from a helper. 5-Set-up or Clean-up Assistance-helper sets up or cleans up; patient completes activity. [place] assists only prior to or following the activity. 4-Supervision or Touching Assistance-helper provides verbal cues and/or touching/steadying and/or contact guard assistance as patient completes activity. Assistance may be provided throughout the activity or intermittently. 3-Partial/Moderate Assistance-helper does LESS THAN HALF the effort. [place] lifts, holds or supports trunk or limbs, but provides less than half the effort. 2-Substantial/Maximal Assistance-helper does MORE THAN HALF the effort. [place] lifts or holds trunk or limbs and provides more than half the effort. 4-Hsrsxcbim-opgqol does ALL the effort. Patient does none of the effort to complete the activity. Or, the assistance of 2 or more helpers is required for the patient to complete the activity. If activity was not attempted, code reason: 7-Patient Refused. 9-Not Applicable-not attempted and the patient did not perform the activity before the current illness, exacerbation or injury. 10-Not Attempted due to Environmental Limitations-(lack of equipment, weather restraints, etc.). 88-Not Attempted due to Medical Conditions or Safety Concerns. Shower/Bathe Self (QC): 4 (SBA with sponge bath) Upper Body Dressing (QC): 5 (set up) Lower Body Dressing (QC): 3 (Min A, pt required cues to recall AE and to dress RLE first.) On/Off Footwear: 4 (SBA with AE to don slip on shoes) Other Treatment Pt seated in recliner, agreeable to sponge bath with moderate encouragement. Pt used FWW to ambulate into bathroom and onto SC. Pt completed sponge bath, declined fully doffing underwear, but able to manage down to wash buttoc ks/periarea. Pt then completed dressing, min A with lower body dressing. Pt donned shoes prior to pants, had difficulty pulling pants up with shoes on. She also threaded RLE into L pant leg, requiring assistance to fix. Pt then used FWW to perform functional mobility to therapy gym. In order to increase BUE strength and activity tolerance, pt completed arm bike x10 mins, min resistance. Pt took rest breaks as needed. Pt then completed fine motor task with moderate resistance theraputty in order to increase BUE fine motor strength and coordination. Pt used FWW to return to room, and transferred to recliner. Post tx, pt seated in recliner, call light in reach and all needs met. Education OT Patient Education: Correct positioning, Modified ADL techniques, Progress toward Goal/Update tx plan, Purpose of tx/functional activities Teaching Recipient: Patient Teaching Methods: Discussion Response to Teaching: Verbalize Understanding OT Short Term Goals Short Term Goals Oral hygiene: 6 Toileting hygiene: 6 Shower/bathe self: 5 Upper body dressin Lower body dressin Putting on/taking off footwear: 4 OT Document Preparer Microfilming Goals Document Preparer Microfilming Goals Time Frame: September 21, 2020 Eating (QC): 6 Oral Hygiene (QC): 6 Toileting Hygiene (QC): 6 Shower/Bathe Self (QC): 6 Upper Body Dressing (QC): 6 Lower Body Dressing (QC): 6 On/Off Footwear (QC): 6 Additional Goals: 1-Demonstrate ADL Tasks, 2-Verbalize Understanding, 3- ImproveStrength/Johan 1=Demonstrate adherence to instructed precautions during ADL tasks. 2=Patient will verbalize/demonstrate understanding of assistive de vices/modifications for ADL. 3=Patient will improve strength/tolerance for activity to enable patient to perform ADL's. OT Education/Plan Problem List/Assessment Assessment: Decreased Activ Tolerance, Decreased UE Strength, Impaired I ADL's, Impaired Self-Care Skills Discharge Recommendations Plan/Recommendations: Continue POC Treatment Plan/Plan of Care Patient would benefit from OT for education, treatment and training to promote independence in ADL's, mobility, safety and/or upper extremity function for ADL's. Plan of Care: ADL Retraining, Caregiver Training, Functional Mobility, Group Exercise/Act as Ind, UE Funct Exercise/Act Treatment Duration: September 21, 2020 Frequency: At least 5 of 7 days/Wk (IRF) Estimated Hrs Per Day: 1.5 hours per day Agreement: Yes Rehab Potential: Good Time/GCodes Start Time: 09:30 Stop Time: 10:45 Total Time Billed (hr/min): 75 Billed Treatment Time 1, ADL 3 (45'), EX (15'), FA (15') OLLIE COTTO OT September 14, 2020 10:23
--- NOTE | 2020-09-14 13:36 | Physical Therapy Daily Note ---
PT Daily Note-Current Subjective Patient agrees to PT. No c/o. Pain Numeric Pain Scale: 3 Location: Right Location Body Site: Hip Pain Description: Ache Mental Status Patient Orientation: Person, Time, Situation Transfers SCALE: Activities may be completed with or without assistive devices. 5-Yloyzrvvfv-qsxlntr completes the activity by him/herself with no assistance from a helper. 5-Set-up or Clean-up Assistance-helper sets up or cleans up; patient completes activity. [place] assists only prior to or following the activity. 4-Supervision or Touching Assistance-helper provides verbal cues and/or touching/steadying and/or contact guard assistance as patient completes activity. Assistance may be provided throughout the activity or intermittently. 3-Partial/Moderate Assistance-helper does LESS THAN HALF the effort. [place] lifts, holds or supports trunk or limbs, but provides less than half the effort. 2-Substantial/Maximal Assistance-helper does MORE THAN HALF the effort. [place] lifts or holds trunk or limbs and provides more than half the effort. 4-Sqhmpnhqs-jpqitr does ALL the effort. Patient does none of the effort to complete the activity. Or, the assistance of 2 or more helpers is required for the patient to complete the activity. If activity was not attempted, code reason: 7-Patient Refused. 9-Not Applicable-not attempted and the patient did not perform the activity before the current illness, exacerbation or injury. 10-Not Attempted due to Environmental Limitations-(lack of equipment, weather restraints, etc.). 88-Not Attempted due to Medical Conditions or Safety Concerns. Sit to Stand (QC): 4 Weight Bearing Right Lower Extremity: Right Weight Bearing/Tolerated Left Lower Extremity: Left Full Weight Bearing Gait Training Does the Patient Walk?: Yes Distance: 250' x 2 Walk 10 feet (QC): 4 (SBA) Walk 50 ft with 2 Turns(QC): 4 (SBA) Walk 150 ft (QC): 4 (SBA) Exercises Seated Therapy Exercises: Ankle pumps, Long arc quads Seated Reps: 15 (2 sets) Assessment Patient tolerated treatment well and returned to room sitting in recliner with chair alarm activated. Spouse present. Improving with treatment plan. PT Mind Reader Goals Senior Living Goals PT Mind Reader Goals Time Frame: September 29, 2020 Roll Left & Right (QC): 6 Sit to Lying (QC): 6 Lying-Sitting on Side/Bed(QC): 6 Sit to Stand (QC): 6 Chair/Owc-zh-Bczxd Xfer(QC): 6 Toilet Transfer (QC): 6 Car Transfer (QC): 6 Does the Patient Walk: Yes Walk 10 feet (QC): 6 Walk 50ft with 2 Turns (QC): 6 Walk 150 ft (QC): 6 Walking 10ft on Uneven Surface: 6 1 Step (curb) (QC): 6 4 Steps (QC): 6 12 Steps (QC): 9 Picking up an Object (QC): 6 Does the Pt use WC or Scooter?: No Wheel 50 feet with 2 turns (QC: 9 Type: N/A Wheel 150 feet: 9 Type: N/A PT Plan Treatment/Plan Treatment Plan: Continue Plan of Care Treatment Plan: Bed Mobility, Concurrent Therapy, Education, Functional Activity Johan, Functional Strength, Group Therapy, Gait, Safety, Therapeutic Exercise, Transfers Treatment Duration: September 29, 2020 Frequency: At least 5 of 7 days/Wk (IRF) Estimated Hrs Per Day: 1.5 hours per day Patient and/or Family Agrees t: Yes Time/GCodes Time In: 1317 Time Out: 1332 Total Billed Treatment Time: 15 Total Billed Treatment 1 visit FA 15 min MERI DÍAZ PT September 14, 2020 13:36
--- NOTE | 2020-09-14 14:05 | Speech Therapy Daily Note ---
Speech Daily Progress Note Subjective Date Seen by Provider: September 14, 2020 Time Seen by Provider: 00:30 Pt was alert and pleasant. Pt agreed to ST services. Pt reported being tired and having a hard time "coming up with words." Objective Patient completed problem solving tasks, sequencing, and following directions tasks related to her daily needs at 60% with moderate cuing. Assessment Assessment Current Status: Fair Progress Treatment Plan Continue Plan of Care Speech Short Term Goals Short Term Goals Short Term Goals 1) Patient will complete memory tasks related to her daily needs at 80% with minimal cuing. 2) Patient will complete safety awareness tasks related to her daily needs at 80% with minimal cuing. 3) Patient will complete problem solving tasks related to her daily needs at 80% with minimal cuing. Speech Art Framing Manager Goals [facility] Goals Patient will improve cognitive-communication abilities in order to complete daily living tasks with minimal assist. Speech-Plan Patient/Family Goals Patient/Family Goals: Pt plans to return home where she lives with her . Treatment Plan Speech Therapy Treatment Plan: Continue Plan of Care Treatment Duration: September 21, 2020 Frequency: 4 times per week (Patient will receive skilled ST 4-5x per week) Estimated Hrs Per Day: .5 hour per day Rehab Potential: Good Barriers to Learning: Medical status and age. Pt/Family Agrees to Plan: Yes Safety Risks/Education Teaching Recipient: Patient Teaching Methods: Demonstration, Discussion Response to Teaching: Verbalize Understanding, Return Demonstration, Reinforcement Needed Education Topics Provided: Safety awareness and compensatory cognitive communication strategies. Time Speech Therapy Time In: 09:00 Speech Therapy Time Out: 09:30 Total Billed Time: 30 Billed Treatment Time 1, YING Saavedra September 14, 2020 14:05
[2020-09-14] MEDS: CHOLESTYRAMINE 4 GM (QUESTRAN LITE, PREVALITE) PKT PO SCH ×2 (14:07→21:26)
[2020-09-14] MEDS: RIVAROXABAN 20 MG TABLET (XARELTO) PO SCH (17:03)
[2020-09-14 19:45] VITALS: BP 161/72
[2020-09-14] MEDS: MONTELUKAST 10 MG (SINGULAIR) TAB PO SCH (21:32)
--- NOTE | 2020-09-15 07:45 | PM&R Progress Note ---
Subjective HPI/CC On Admission Date Seen by Provider: September 15, 2020 Time Seen by Provider: 11:45 Subjective/Events-last exam 09/15/20: Patient doing well Her other son is visiting her today is to arrive soon [place] for Mother's Day has pleased her Questran held due to slowed bowels 09/14/2020: Patient doing very well Son at the bedside Right leg is a bit swollen but she kept her stockings on through the night so we will monitor that since they have been removed No pain is reported Has some questions about home health 09/13/20: Pt confused but doing well DC plan for Thursday with Bowels are moving well No issues 09/12/20: Pt doing pretty well Weaned oxygen off Oxycodone taken at night and decreased pain reports Changed softeners to prn due to loose stools 09/11/20: Pt doing pretty well Weaning O2 off Right knee pain is starting to be an issue Dementia is certainly causing a delay in recovery 09/10/20: Pt doing pretty well Hgb 10.6 Bowels moved today, no major issues Will inquire with Dr. Gilliland regarding her chemotherapy pill 09/09/20: Patient denies issues Pain is an issue when she moves Dementia is an issue Confusion is stable 09/08/20: Patient doing well Memory loss noted Hgb 10 SLUMS Eduar intact Eating well BM+ Startles easily Review of Systems General: Fatigue, Malaise Musculoskeletal: leg pain Neurological: Confusion Objective Exam Vital Signs Vital Signs Date Time Temp Pulse Resp B/P (MAP) Pulse Ox O2 Delivery O2 Flow Rate FiO2 09/15/20 09:29 Room Air 09/15/20 08:08 37.0 74 18 128/60 (82) 98 09/11/20 07:53 2.00 Capillary Refill : General Appearance: No Apparent Distress, WD/WN, Chronically ill HEENT: PERRL/EOMI, Normal ENT Inspection, Pharynx Normal Neck: Full Range of Motion, Normal Inspection, Non Tender, Supple, Carotid Bruit Respiratory: Chest Non Tender, Lungs Clear, Normal Breath Sounds, No Accessory Muscle Use, No Respiratory Distress Cardiovascular: Regular Rate, Rhythm, No Edema, No Gallop, No JVD, No Murmur, Normal Peripheral Pulses Gastrointestinal: Normal Bowel Sounds, No Organomegaly, No Pulsatile Mass, Non Tender, Soft Back: Normal Inspection, No CVA Tenderness, No Vertebral Tenderness Extremity: Normal Capillary Refill, Normal Inspection, Normal Range of Motion, Non Tender, No Calf Tenderness, No Pedal Edema Neurologic/Psychiatric: Alert, Oriented x3, No Motor/Sensory Deficits, Normal Mood/Affect, prototyper II-XII Norm as Tested, Disoriented, Motor Weakness Skin: Normal Color, Warm/Dry Lymphatic: No Adenopathy Results/Procedures Lab Patient resulted labs reviewed. FIM Transfers Therapy Code Descriptions/Definitions Functional [place] Measure: 0=Not Assessed/NA 4=Minimal Assistance 1=Total Assistance 5=Supervision or Setup 2=Maximal Assistance 6=Modified [place] 3=Moderate Assistance 7=Complete IndependenceSCALE: Activities may be completed with or without assistive devices. 6-Ksxylmxhrw-etxsgjf completes the activity by him/herself with no assistance from a helper. 5-Set-up or Clean-up Assistance-helper sets up or cleans up; patient completes activity. [place] assists only prior to or following the activity. 4-Supervision or Touching Assistance-helper provides verbal cues and/or touc kacey/steadying and/or contact guard assistance as patient completes activity. Assistance may be provided throughout the activity or intermittently. 3-Partial/Moderate Assistance-helper does LESS THAN HALF the effort. [place] lifts, holds or supports trunk or limbs, but provides less than half the effort. 2-Substantial/Maximal Assistance-helper does MORE THAN HALF the effort. [place] lifts or holds trunk or limbs and provides more than half the effort. 3-Vtqipykqp-ockijh does ALL the effort. Patient does none of the effort to complete the activity. Or, the assistance of 2 or more helpers is required for the patient to complete the activity. If activity was not attempted, code reason: 7-Patient Refused. 9-Not Applicable-not attempted and the patient did not perform the activity before the current illness, exacerbation or injury. 10-Not Attempted due to Environmental Limitations-(lack of equipment, weather restraints, etc.). 88-Not Attempted due to Medical Conditions or Safety Concerns. Roll Left to Right (QC): 3 Sit to Lying (QC): 4 Sit to Stand (QC): 4 Chair/Iyb-jx-Ykvyv Xfer(QC): 4 Car Transfer (QC): 3 Gait Training Does the Patient Walk?: Yes Distance: 250' x 2 Walk 10 feet (QC): 4 (SBA) Walk 50 ft with 2 Turns(QC): 4 (SBA) Walk 150 ft (QC): 4 (SBA) Walking 10ft/uneven surface-QC: 3 Gait Persons Needed: 1 Gait Assistive Device: FWW Wheelchair Training Does the Pt Use a Wheelchair?: No Wheel 50 ft with 2 turns (QC): 9 Wheel 150 ft (QC): 9 Type of Wheelchair: N/A Stair Training #of Steps: 4 1 Step (curb) (QC): 3 4 Steps (QC): 3 12 Steps (QC): 9 Balance Picking up an Object (QC): 3 (with device and assistance of use) ADL-Treatment Eating (QC): 6 Oral Hygiene (QC): 7 Shower/Bathe Self (QC): 4 (SBA with sponge bath) Upper Body Dressing (QC): 5 (set up) Lower Body Dressing (QC): 3 (Min A, pt required cues to recall AE and to dress RLE first.) On/Off Footwear (QC): 4 (SBA with AE to don slip on shoes) Toileting Hygiene (QC): 3 (Min assist for balance in stance. Pt. able to doff pants and cleanse sola area after having BM. Donned pants in stance.) Toilet Transfer (QC): 4 (CGA) Assessment/Plan Assessment and Plan Assess & Plan/Chief Complaint Assessment: Right hip fracture CLL Anemia of chronic disease CKD Stage 4 HTN HLP COPD PVD CAD Carotid stenosis Dementia Plan: IRF protocol Monitor closely Dementia monitoring 09/08/20: Monitor closely Monitor confusion 09/09/20: Monitor closely Fall risk 09/10/20: Monitor closely Monitor pain 09/11/20: Monitor pain Fall risk 09/12/20: Monitor pain Weaned O2 09/13/20: DC next week Monitor BP 09/14/2020: Much improved status Discharge on Thursday with home health 09/15/20: Hold Questran for constipation Monitor pain (1) Closed right hip fracture Status: Acute (2) Acute renal failure superimposed on chronic kidney disease Status: Acute (3) Anemia of chronic disease Status: Acute (4) Left knee pain Status: Acute (5) Fall on same level Status: Acute (6) Inflammatory arthropathy Status: Acute (7) HLP (8) Abnormal stress test (9) HTN (hypertension) (10) SOB (shortness of breath) (11) CAD (coronary artery disease) EDWIGE SRINIVASAN DO September 15, 2020 07:45
[2020-09-15 08:08] VITALS: BP 128/60
[2020-09-15] MEDS: PANTOPRAZOLE 40 MG (PROTONIX) TAB PO SCH (08:09)
[2020-09-15] MEDS: VENETOCLAX PO SCH (08:10)
[2020-09-15] MEDS: fluCOnazole (DIFLUCAN) 100 MG TAB PO SCH (08:10)
[2020-09-15] MEDS: ATENOLOL 25 MG (TENORMIN) TAB PO SCH (08:10)
[2020-09-15] MEDS: LORATADINE (CLARITIN) 10 MG TAB PO SCH (08:10)
[2020-09-15] MEDS: DONEPEZIL 10 MG (ARICEPT) TAB PO SCH (08:10)
[2020-09-15] MEDS: ACYCLOVIR 400 MG TABLET (ZOVIRAX) PO SCH ×2 (08:10→21:05)
[2020-09-15] MEDS: CHOLESTYRAMINE 4 GM (QUESTRAN LITE, PREVALITE) PKT PO SCH ×2 (08:39→20:07)
--- NOTE | 2020-09-15 11:55 | Physical Therapy Daily Note ---
PT Daily Note-Current Subjective Pt sitting in recliner upon arrival. Pt agrees to PT and reports still feeling discomfort in R hip but feels it is better. Pain Numeric Pain Scale: 4 Location: Right Location Body Site: Hip Pain Description: Ache Mental Status Patient Orientation: Person, Place, Situation Transfers SCALE: Activities may be completed with or without assistive devices. 4-Qutuejcuvt-tbgzipz completes the activity by him/herself with no assistance from a helper. 5-Set-up or Clean-up Assistance-helper sets up or cleans up; patient completes activity. [place] assists only prior to or following the activity. 4-Supervision or Touching Assistance-helper provides verbal cues and/or touching/steadying and/or contact guard assistance as patient completes activity. Assistance may be provided throughout the activity or intermittently. 3-Partial/Moderate Assistance-helper does LESS THAN HALF the effort. [place] lifts, holds or supports trunk or limbs, but provides less than half the effort. 2-Substantial/Maximal Assistance-helper does MORE THAN HALF the effort. [place] lifts or holds trunk or limbs and provides more than half the effort. 9-Jzkghvmgv-fartcp does ALL the effort. Patient does none of the effort to complete the activity. Or, the assistance of 2 or more helpers is required for the patient to complete the activity. If activity was not attempted, code reason: 7-Patient Refused. 9-Not Applicable-not attempted and the patient did not perform the activity before the current illness, exacerbation or injury. 10-Not Attempted due to Environmental Limitations-(lack of equipment, weather restraints, etc.). 88-Not Attempted due to Medical Conditions or Safety Concerns. Sit to Stand (QC): 5 Toilet Transfer (QC): 5 Weight Bearing Right Lower Extremity: Right Weight Bearing/Tolerated Left Lower Extremity: Left Full Weight Bearing Gait Training Does the Patient Walk?: Yes (450') Distance: 450' Walk 10 feet (QC): 5 Walk 50 ft with 2 Turns(QC): 5 Walk 150 ft (QC): 5 Gait Persons Needed: 1 Gait Assistive Device: FWW Treatments TF to standing and uses BR then amb. in hallway. Pt takes RB approx. half way through walk. Pt amb. in hallway and returns to room to rest in recliner. Family present and all needs met, call light in hand. Assessment Current Status: Good Progress Pt fatigues and needs occasional RB as needed. PT Radiology Scheduler Goals Radiology Scheduler Goals PT Radiology Scheduler Goals Time Frame: September 29, 2020 Roll Left & Right (QC): 6 Sit to Lying (QC): 6 Lying-Sitting on Side/Bed(QC): 6 Sit to Stand (QC): 6 Chair/Uup-dw-Jyrmi Xfer(QC): 6 Toilet Transfer (QC): 6 Car Transfer (QC): 6 Does the Patient Walk: Yes Walk 10 feet (QC): 6 Walk 50ft with 2 Turns (QC): 6 Walk 150 ft (QC): 6 Walking 10ft on Uneven Surface: 6 1 Step (curb) (QC): 6 4 Steps (QC): 6 12 Steps (QC): 9 Picking up an Object (QC): 6 Does the Pt use WC or Scooter?: No Wheel 50 feet with 2 turns (QC: 9 Type: N/A Wheel 150 feet: 9 Type: N/A PT Plan Problem List Problem List: Activity Tolerance Treatment/Plan Treatment Plan: Continue Plan of Care Treatment Plan: Bed Mobility, Concurrent Therapy, Education, Functional Activity Johan, Functional Strength, Group Therapy, Gait, Safety, Therapeutic Exercise, Transfers Treatment Duration: September 29, 2020 Frequency: At least 5 of 7 days/Wk (IRF) Estimated Hrs Per Day: 1.5 hours per day Patient and/or Family Agrees t: Yes Safety Risks/Education Patient Education: Gait Training, Correct Positioning Teaching Recipient: Patient Teaching Methods: Discussion Response to Teaching: Verbalize Understanding Time/GCodes Time In: 1045 Time Out: 1125 Total Billed Treatment Time: 40 Total Billed Treatment 1, FA (15m) & GT x2 (25m) ANDREA CRUZ COLLEGE PRESIDENT September 15, 2020 11:55
[2020-09-15] MEDS: HYDROcodone/APAP 5 MG/325 MG (LORTAB) TAB PO PRN (12:57)
[2020-09-15] MEDS: DICLOFENAC 1% GEL 100 GM (VOLTAREN) TUBE TOP SCH ×2 (17:14→21:05)
[2020-09-15] MEDS: RIVAROXABAN 20 MG TABLET (XARELTO) PO SCH (17:14)
[2020-09-15 20:00] VITALS: BP 128/59
[2020-09-15] MEDS: MONTELUKAST 10 MG (SINGULAIR) TAB PO SCH (21:05)
--- NOTE | 2020-09-16 07:09 | PM&R Progress Note ---
Subjective HPI/CC On Admission Date Seen by Provider: September 16, 2020 Time Seen by Provider: 12:00 Subjective/Events-last exam 09/16/20: No major issues Shower today Questran taken prn Changed the dressing 09/15/20: Patient doing well Her other son is visiting her today is to arrive soon [place] for Mother's Day has pleased her Questran held due to slowed bowels 09/14/2020: Patient doing very well Son at the bedside Right leg is a bit swollen but she kept her stockings on through the night so we will monitor that since they have been removed No pain is reported Has some questions about home health 09/13/20: Pt confused but doing well DC plan for Thursday with Bowels are moving well No issues 09/12/20: Pt doing pretty well Weaned oxygen off Oxycodone taken at night and decreased pain reports Changed softeners to prn due to loose stools 09/11/20: Pt doing pretty well Weaning O2 off Right knee pain is starting to be an issue Dementia is certainly causing a delay in recovery 09/10/20: Pt doing pretty well Hgb 10.6 Bowels moved today, no major issues Will inquire with Dr. Gilliland regarding her chemotherapy pill 09/09/20: Patient denies issues Pain is an issue when she moves Dementia is an issue Confusion is stable 09/08/20: Patient doing well Memory loss noted Hgb 10 SLUMS Eduar intact Eating well BM+ Startles easily Review of Systems General: Fatigue, Malaise Neurological: Weakness Objective Exam Vital Signs Vital Signs Date Time Temp Pulse Resp B/P (MAP) Pulse Ox O2 Delivery O2 Flow Rate FiO2 09/16/20 08:43 Room Air 09/16/20 07:56 36.6 75 18 113/56 (75) 96 09/11/20 07:53 2.00 Capillary Refill : General Appearance: No Apparent Distress, WD/WN, Chronically ill HEENT: PERRL/EOMI, Normal ENT Inspection, Pharynx Normal Neck: Full Range of Motion, Normal Inspection, Non Tender, Supple, Carotid Bruit Respiratory: Chest Non Tender, Lungs Clear, Normal Breath Sounds, No Accessory Muscle Use, No Respiratory Distress Cardiovascular: Regular Rate, Rhythm, No Edema, No Gallop, No JVD, No Murmur, Normal Peripheral Pulses Gastrointestinal: Normal Bowel Sounds, No Organomegaly, No Pulsatile Mass, Non Tender, Soft Back: Normal Inspection, No CVA Tenderness, No Vertebral Tenderness Extremity: Normal Capillary Refill, Normal Inspection, Normal Range of Motion, Non Tender, No Calf Tenderness, No Pedal Edema Neurologic/Psychiatric: Alert, Oriented x3, No Motor/Sensory Deficits, Normal Mood/Affect, welding foreman II-XII Norm as Tested, Disoriented, Motor Weakness Skin: Normal Color, Warm/Dry Lymphatic: No Adenopathy Results/Procedures Lab Patient resulted labs reviewed. FIM Transfers Therapy Code Descriptions/Definitions Functional [place] Measure: 0=Not Assessed/NA 4=Minimal Assistance 1=Total Assistance 5=Supervision or Setup 2=Maximal Assistance 6=Modified [place] 3=Moderate Assistance 7=Complete IndependenceSCALE: Activities may be completed with or without assistive devices. 4-Sixmetmrbp-ebgzwzq completes the activity by him/herself with no assistance from a helper. 5-Set-up or Clean-up Assistance-helper sets up or cleans up; patient completes activity. [place] assists only prior to or following the activity. 4-Supervision or Touching Assistance-helper provides verbal cues and/or touching/steadying and/or contact guard assistance as patient completes activity. Assistance may be provided throughout the activity or intermittently. 3-Partial/Moderate Assistance-helper does LESS THAN HALF the effort. [place] lifts, holds or supports trunk or limbs, but provides less than half the effort. 2-Substantial/Maximal Assistance-helper does MORE THAN HALF the effort. [place] lifts or holds trunk or limbs and provides more than half the effort. 2-Hfeedmbry-inkpoh does ALL the effort. Patient does none of the effort to complete the activity. Or, the assistance of 2 or more helpers is required for the patient to complete the activity. If activity was not attempted, code reason: 7-Patient Refused. 9-Not Applicable-not attempted and the patient did not perform the activity before the current illness, exacerbation or injury. 10-Not Attempted due to Environmental Limitations-(lack of equipment, weather restraints, etc.). 88-Not Attempted due to Medical Conditions or Safety Concerns. Roll Left to Right (QC): 3 Sit to Lying (QC): 4 Sit to Stand (QC): 5 Chair/Bml-ob-Gmqjm Xfer(QC): 4 Car Transfer (QC): 3 Gait Training Does the Patient Walk?: Yes (450') Distance: 450' Walk 10 feet (QC): 5 Walk 50 ft with 2 Turns(QC): 5 Walk 150 ft (QC): 5 Walking 10ft/uneven surface-QC: 3 Gait Persons Needed: 1 Gait Assistive Device: FWW Wheelchair Training Does the Pt Use a Wheelchair?: No Wheel 50 ft with 2 turns (QC): 9 Wheel 150 ft (QC): 9 Type of Wheelchair: N/A Stair Training #of Steps: 4 1 Step (curb) (QC): 3 4 Steps (QC): 3 12 Steps (QC): 9 Balance Picking up an Object (QC): 3 (with device and assistance of use) ADL-Treatment Eating (QC): 6 Oral Hygiene (QC): 7 Shower/Bathe Self (QC): 4 (SBA with sponge bath) Upper Body Dressing (QC): 5 (set up) Lower Body Dressing (QC): 3 (Min A, pt required cues to recall AE and to dress RLE first.) On/Off Footwear (QC): 4 (SBA with AE to don slip on shoes) Toileting Hygiene (QC): 3 (Min assist for balance in stance. Pt. able to doff pants and cleanse sola area after having BM. Donned pants in stance.) Toilet Transfer (QC): 4 (CGA) Assessment/Plan Assessment and Plan Assess & Plan/Chief Complaint Assessment: Right hip fracture CLL Anemia of chronic disease CKD Stage 4 HTN HLP COPD PVD CAD Carotid stenosis Dementia Plan: IRF protocol Monitor closely Dementia monitoring 09/08/20: Monitor closely Monitor confusion 09/09/20: Monitor closely Fall risk 09/10/20: Monitor closely Monitor pain 09/11/20: Monitor pain Fall risk 09/12/20: Monitor pain Weaned O2 09/13/20: DC next week Monitor BP 09/14/2020: Much improved status Discharge on Thursday with home health 09/15/20: Hold Questran for constipation Monitor pain 09/16/20: Monitor loose stools Changed dressing Labs in morning (1) Closed right hip fracture Status: Acute (2) Acute renal failure superimposed on chronic kidney disease Status: Acute (3) Anemia of chronic disease Status: Acute (4) Left knee pain Status: Acute (5) Fall on same level Status: Acute (6) Inflammatory arthropathy Status: Acute (7) HLP (8) Abnormal stress test (9) HTN (hypertension) (10) SOB (shortness of breath) (11) CAD (coronary artery disease) EDWIGE SRINIVASAN DO September 16, 2020 07:09
[2020-09-16 07:56] VITALS: BP 113/56
[2020-09-16] MEDS: LORATADINE (CLARITIN) 10 MG TAB PO SCH (08:08)
[2020-09-16] MEDS: ATENOLOL 25 MG (TENORMIN) TAB PO SCH (08:08)
[2020-09-16] MEDS: DONEPEZIL 10 MG (ARICEPT) TAB PO SCH (08:08)
[2020-09-16] MEDS: PANTOPRAZOLE 40 MG (PROTONIX) TAB PO SCH (08:09)
[2020-09-16] MEDS: ACYCLOVIR 400 MG TABLET (ZOVIRAX) PO SCH ×2 (08:09→20:47)
[2020-09-16] MEDS: DICLOFENAC 1% GEL 100 GM (VOLTAREN) TUBE TOP SCH ×4 (08:09→19:41)
[2020-09-16] MEDS: fluCOnazole (DIFLUCAN) 100 MG TAB PO SCH (08:09)
[2020-09-16] MEDS: VENETOCLAX PO SCH (08:10)
[2020-09-16] MEDS: CHOLESTYRAMINE 4 GM (QUESTRAN LITE, PREVALITE) PKT PO SCH ×2 (08:51→19:41)
[2020-09-16] MEDS: HYDROcodone/APAP 5 MG/325 MG (LORTAB) TAB PO PRN (12:58)
[2020-09-16] MEDS: RIVAROXABAN 20 MG TABLET (XARELTO) PO SCH (16:19)
[2020-09-16 19:54] VITALS: BP 137/63
[2020-09-16] MEDS: MONTELUKAST 10 MG (SINGULAIR) TAB PO SCH (20:47)
[2020-09-17 05:42] LABS: BASOPHILS % (AUTO) 0 % (0-10); EOSINOPHILS % (AUTO) 1 % (0-10); HEMATOCRIT 28 % (35-52); HEMOGLOBIN 8.7 g/dL (11.5-16.0); LYMPHOCYTES # (AUTO) 0.7 10^3/uL (1.0-4.0); LYMPHOCYTES % (AUTO) 10 % (12-44); MEAN CORPUSCULAR HEMOGLOBIN 28 pg (25-34); MEAN CORPUSCULAR HGB CONC 32 g/dL (32-36); MEAN CORPUSCULAR VOLUME 87 fL (80-99); MEAN PLATELET VOLUME 10.2 fL (9.0-12.2); MONOCYTES # (AUTO) 0.8 10^3/uL (0.0-1.0); MONOCYTES % (AUTO) 12 % (0-12); NEUTROPHILS % (AUTO) 76 % (42-75); PLATELET COUNT 197 10^3/uL (130-400); WHITE BLOOD COUNT 6.5 10^3/uL (4.3-11.0)
[2020-09-17 05:50] LABS: ALBUMIN 3.2 GM/DL (3.2-4.5); POTASSIUM 3.7 MMOL/L (3.6-5.0)
[2020-09-17 05:51] LABS: CALCIUM 7.1 MG/DL (8.5-10.1)
[2020-09-17 05:52] LABS: TOTAL PROTEIN 5.8 GM/DL (6.4-8.2)
[2020-09-17 05:54] LABS: BILIRUBIN,TOTAL 0.9 MG/DL (0.1-1.0)
[2020-09-17 05:56] LABS: CREATININE SERUM 0.95 MG/DL (0.60-1.30)
[2020-09-17] MEDS: ACYCLOVIR 400 MG TABLET (ZOVIRAX) PO SCH ×2 (07:34→20:22)
[2020-09-17] MEDS: LORATADINE (CLARITIN) 10 MG TAB PO SCH (07:34)
[2020-09-17] MEDS: ATENOLOL 25 MG (TENORMIN) TAB PO SCH (07:34)
[2020-09-17] MEDS: fluCOnazole (DIFLUCAN) 100 MG TAB PO SCH (07:34)
[2020-09-17] MEDS: DONEPEZIL 10 MG (ARICEPT) TAB PO SCH (07:34)
[2020-09-17] MEDS: PANTOPRAZOLE 40 MG (PROTONIX) TAB PO SCH (07:36)
[2020-09-17] MEDS: VENETOCLAX PO SCH (07:37)
[2020-09-17] MEDS: DICLOFENAC 1% GEL 100 GM (VOLTAREN) TUBE TOP SCH ×4 (07:39→20:23)
[2020-09-17] MEDS: CHOLESTYRAMINE 4 GM (QUESTRAN LITE, PREVALITE) PKT PO SCH ×2 (07:39→20:22)
[2020-09-17 08:00] VITALS: BP 152/65
--- NOTE | 2020-09-17 08:29 | Speech Therapy Daily Note ---
Speech Daily Progress Note Subjective Date Seen by Provider: September 17, 2020 Time Seen by Provider: 00:30 Pt was alert, though in emotional distress. Pt agreed to ST services. Pt became teary about perhaps "not going home tomorrow." Objective Patient completed safety awareness activities related to her daily activities at 90% with minimal cues. Assessment Assessment Current Status: Good Progress Treatment Plan Discontinue ST, Goals Met Speech Short Term Goals Short Term Goals Short Term Goals 1) Patient will complete memory tasks related to her daily needs at 80% with minimal cuing. 2) Patient will complete safety awareness tasks related to her daily needs at 80% with minimal cuing. 3) Patient will complete problem solving tasks related to her daily needs at 80% with minimal cuing. Speech Automated Equipment Engineer Technician Goals Fdc Goals Patient will improve cognitive-communication abilities in order to complete daily living tasks with minimal assist. Speech-Plan Patient/Family Goals Patient/Family Goals: Pt plans to return home upon D/C from [facility] where she lives with her . Treatment Plan Speech Therapy Treatment Plan: Discontinue ST, Goals Met Treatment Duration: September 18, 2020 Frequency: 4 times per week (Patient will receive skilled ST 4-5x per week) Estimated Hrs Per Day: .5 hour per day Rehab Potential: Good Barriers to Learning: Medical status and age. Pt/Family Agrees to Plan: Yes Safety Risks/Education Teaching Recipient: Patient Teaching Methods: Discussion Response to Teaching: Verbalize Understanding, Reinforcement Needed Education Topics Provided: Safety awareness and compensatory memory strategies. Time Speech Therapy Time In: 11:00 Speech Therapy Time Out: 11:30 Total Billed Time: 30 Billed Treatment Time 1, SLTS No QUALITY CODES: EXPRESSION OF IDEAS/WANTS: 4 UNDERSTANDING VERBAL CONTENT: 4 BRIEF INTERVIEW MENTAL STATUS: YES REPETITION OF 3 WORDS: 3 TEMPORAL ORIENTATION: YEAR, CORRECT, MONTH, CORRECT, DAY, CORRECT RECALL SOCK, YES WITH CUE, COLOR, YES WITH CUE, BED, YES WITH CUE MEMORY/RECALL ABILITY: SEASON, THAT SHE IS IN THE HOSPITAL, LOCATION OF ROOM AMBROSE CONKLINHANIA September 17, 2020 08:29
[2020-09-17] MEDS ORDERED: ACHD5005 PO (09:40)
[2020-09-17] MEDS ORDERED: CHOL4PAC3 PO (09:40)
--- NOTE | 2020-09-17 09:41 | D/C HH Face to Face Order ---
D/C Face to Face Orders Reconcile Patient Problems Problems Reviewed?: Yes Instructions for Patient Via [facility], Patient Instructions/FollowUp: Dr Carmona 1 week Physician to follow Patient: Kristine Discharge Diet for Home: No Restrictions Patient Problems: Hip fracture Patient Data-Allergies,Ht & Wt Patient Allergies: Coded Allergies: No Known Drug Allergies (Verified , 05/03/16) Height (Feet): 5 Height (Inches): 3.00 Weight (Pounds): 197 Weight (Ounces): 0.0 Home Health Need/Face to Face Date of Face to Face: September 17, 2020 Clinical Findings: Generalized weakness and fatigue, Instability, Muscle weakness, Pain with ambulation, Unsteady gait I have seen Pt wyzu-yf-[id number]: Yes Discharged To: Home Diagnosis/Conditions: HIP FRACTURE Patient is Homebound due to: CognItive deficits, Octaviano fall risk due to i nstabilty, Muscle weakness, Pain w/ambulation Homebound Status Due to the above stated illness, injury or surgical procedure (medical condition or diagnosis) and associated clinical findings, the patient is homebound because of his/her inability to leave home except with aid of a supportive device and/or person AND leaving the home requires a considerable and taxing effort or is medically contraindicated. Pt req the following assistanc: Walker Home Health Nursing Orders Home Health Services Order: Nursing Services, Dry Kiln Loader-Evaluate & Treat, Physical Therapy-Evaluate & Treat Certify Stmt I certify that this patient is under my care and that I, a nurse practitioner or a physician; a driller's assistant working with me, had a face to face encounter that - meets the physician face to face encounter requirements with this patient as dated. EDWIGE SRINIVASAN DO September 17, 2020 09:41
--- NOTE | 2020-09-17 09:42 | PM&R Progress Note ---
Subjective HPI/CC On Admission Date Seen by Provider: September 17, 2020 Time Seen by Provider: 09:15 Subjective/Events-last exam 09/17/20: Patient plans for discharge tomorrow Appears to be a bit depressed and wants to go home Bowels moved today Hemoglobin 8.7 09/16/20: No major issues Shower today Questran taken prn Changed the dressing 09/15/20: Patient doing well Her other son is visiting her today is to arrive soon [place] for Mother's Day has pleased her Questran held due to slowed bowels 09/14/2020: Patient doing very well Son at the bedside Right leg is a bit swollen but she kept her stockings on through the night so we will monitor that since they have been removed No pain is reported Has some questions about home health 09/13/20: Pt confused but doing well DC plan for Thursday with Bowels are moving well No issues 09/12/20: Pt doing pretty well Weaned oxygen off Oxycodone taken at night and decreased pain reports Changed softeners to prn due to loose stools 09/11/20: Pt doing pretty well Weaning O2 off Right knee pain is starting to be an issue Dementia is certainly causing a delay in recovery 09/10/20: Pt doing pretty well Hgb 10.6 Bowels moved today, no major issues Will inquire with Dr. Gilliland regarding her chemotherapy pill 09/09/20: Patient denies issues Pain is an issue when she moves Dementia is an issue Confusion is stable 09/08/20: Patient doing well Memory loss noted Hgb 10 SLUMS 23/30 Eduar intact Eating well BM+ Startles easily Review of Systems Musculoskeletal: leg pain Neurological: Confusion Objective Exam Vital Signs Vital Signs Date Time Temp Pulse Resp B/P (MAP) Pulse Ox O2 Delivery O2 Flow Rate FiO2 09/17/20 09:25 Room Air 09/17/20 08:00 35.5 74 16 152/65 (94) 94 09/11/20 07:53 2.00 Capillary Refill : General Appearance: No Apparent Distress, WD/WN, Chronically ill HEENT: PERRL/EOMI, Normal ENT Inspection, Pharynx Normal Neck: Full Range of Motion, Normal Inspection, Non Tender, Supple, Carotid Bruit Respiratory: Chest Non Tender, Lungs Clear, Normal Breath Sounds, No Accessory Muscle Use, No Respiratory Distress Cardiovascular: Regular Rate, Rhythm, No Edema, No Gallop, No JVD, No Murmur, Normal Peripheral Pulses Gastrointestinal: Normal Bowel Sounds, No Organomegaly, No Pulsatile Mass, Non Tender, Soft Back: Normal Inspection, No CVA Tenderness, No Vertebral Tenderness Extremity: Normal Capillary Refill, Normal Inspection, Normal Range of Motion, Non Tender, No Calf Tenderness, No Pedal Edema Neurologic/Psychiatric: Alert, Oriented x3, No Motor/Sensory Deficits, Normal Mood/Affect, sql report writer II-XII Norm as Tested, Disoriented, Motor Weakness Skin: Normal Color, Warm/Dry Lymphatic: No Adenopathy Results/Procedures Lab Laboratory Tests 09/17/20 05:26 Patient resulted labs reviewed. FIM Transfers Therapy Code Descriptions/Definitions Functional [place] Measure: 0=Not Assessed/NA 4=Minimal Assistance 1=Total Assistance 5=Supervision or Setup 2=Maximal Assistance 6=Modified [place] 3=Moderate Assistance 7=Complete IndependenceSCALE: Activities may be completed with or without assistive devices. 0-Mejsrkpict-fzbqhxb completes the activity by him/herself with no assistance from a helper. 5-Set-up or Clean-up Assistance-helper sets up or cleans up; patient completes activity. [place] assists only prior to or following the activity. 4-Supervision or Touching Assistance-helper provides verbal cues and/or touching/steadying and/or contact guard assistance as patient completes activity. Assistance may be provided throughout the activity or intermittently. 3-Partial/Moderate Assistance-helper does LESS THAN HALF the effort. [place] lifts, holds or supports trunk or limbs, but provides less than half the effort. 2-Substantial/Maximal Assistance-helper does MORE THAN HALF the effort. [place] lifts or holds trunk or limbs and provides more than half the effort. 3-Kbfvdmkpa-axtqll does ALL the effort. Patient does none of the effort to complete the activity. Or, the assistance of 2 or more helpers is required for the patient to complete the activity. If activity was not attempted, code reason: 7-Patient Refused. 9-Not Applicable-not attempted and the patient did not perform the activity before the current illness, exacerbation or injury. 10-Not Attempted due to Environmental Limitations-(lack of equipment, weather restraints, etc.). 88-Not Attempted due to Medical Conditions or Safety Concerns. Roll Left to Right (QC): 3 Sit to Lying (QC): 4 Sit to Stand (QC): 5 Chair/Txd-kv-Yqcod Xfer(QC): 4 Car Transfer (QC): 3 Gait Training Does the Patient Walk?: Yes (450') Distance: 450' Walk 10 feet (QC): 5 Walk 50 ft with 2 Turns(QC): 5 Walk 150 ft (QC): 5 Walking 10ft/uneven surface-QC: 3 Gait Persons Needed: 1 Gait Assistive Device: FWW Wheelchair Training Does the Pt Use a Wheelchair?: No Wheel 50 ft with 2 turns (QC): 9 Wheel 150 ft (QC): 9 Type of Wheelchair: N/A Stair Training #of Steps: 4 1 Step (curb) (QC): 3 4 Steps (QC): 3 12 Steps (QC): 9 Balance Picking up an Object (QC): 3 (with device and assistance of use) ADL-Treatment Eating (QC): 6 Oral Hygiene (QC): 7 Shower/Bathe Self (QC): 4 (SBA with sponge bath) Upper Body Dressing (QC): 5 (set up) Lower Body Dressing (QC): 3 (Min A, pt required cues to recall AE and to dress RLE first.) On/Off Footwear (QC): 4 (SBA with AE to don slip on shoes) Toileting Hygiene (QC): 3 (Min assist for balance in stance. Pt. able to doff pants and cleanse sola area after having BM. Donned pants in stance.) Toilet Transfer (QC): 4 (CGA) Assessment/Plan Assessment and Plan Assess & Plan/Chief Complaint Assessment: Right hip fracture CLL Anemia of chronic disease CKD Stage 4 HTN HLP COPD PVD CAD Carotid stenosis Dementia Plan: IRF protocol Monitor closely Dementia monitoring 09/08/20: Monitor closely Monitor confusion 09/09/20: Monitor closely Fall risk 09/10/20: Monitor closely Monitor pain 09/11/20: Monitor pain Fall risk 09/12/20: Monitor pain Weaned O2 09/13/20: DC next week Monitor BP 09/14/2020: Much improved status Discharge on Thursday with home health 09/15/20: Hold Questran for constipation Monitor pain 09/16/20: Monitor loose stools Changed dressing Labs in morning 09/17/20: Monitor pain Discharge tomorrow (1) Closed right hip fracture Status: Acute (2) Acute renal failure superimposed on chronic kidney disease Status: Acute (3) Anemia of chronic disease Status: Acute (4) Left knee pain Status: Acute (5) Fall on same level Status: Acute (6) Inflammatory arthropathy Status: Acute (7) HLP (8) Abnormal stress test (9) HTN (hypertension) (10) SOB (shortness of breath) (11) CAD (coronary artery disease) EDWIGE SRINIVASAN DO September 17, 2020 09:42
--- NOTE | 2020-09-17 11:06 | Physical Therapy Daily Note ---
PT Daily Note-Current Subjective Pt. agrees to rx.States she is nervous because she knows she is being "tested". This BOAT OFFICER reassures her all will be well. Pt. sighs and breathes audibly all during Rx but denies pain stating "Im just so sore from all this exercise" Pain Location: No Pain Reported Mental Status Patient Orientation: Person, Place, Time, Situation Attachments: Other-See Comments (mask) Transfers SCALE: Activities may be completed with or without assistive devices. 3-Zfshtrctli-vrokhnh completes the activity by him/herself with no assistance from a helper. 5-Set-up or Clean-up Assistance-helper sets up or cleans up; patient completes activity. [place] assists only prior to or following the activity. 4-Supervision or Touching Assistance-helper provides verbal cues and/or touching/steadying and/or contact guard assistance as patient completes activity. Assistance may be provided throughout the activity or intermittently. 3-Partial/Moderate Assistance-helper does LESS THAN HALF the effort. [place] lifts, holds or supports trunk or limbs, but provides less than half the effort. 2-Substantial/Maximal Assistance-helper does MORE THAN HALF the effort. [place] lifts or holds trunk or limbs and provides more than half the effort. 4-Aldyghvdj-kuwgol does ALL the effort. Patient does none of the effort to complete the activity. Or, the assistance of 2 or more helpers is required for the patient to complete the activity. If activity was not attempted, code reason: 7-Patient Refused. 9-Not Applicable-not attempted and the patient did not perform the activity before the current illness, exacerbation or injury. 10-Not Attempted due to Environmental Limitations-(lack of equipment, weather restraints, etc.). 88-Not Attempted due to Medical Conditions or Safety Concerns. Roll Left & Right (QC): 6 Sit to Lying (QC): 6 Lying to Sitting/Side of Bed(Q: 6 Sit to Stand (QC): 6 Chair/Fsr-nv-Zplxi Xfer(QC): 6 Toilet Transfer (QC): 6 Car Transfer (QC): 5 instruction for car TRF to use UEs to assist LEs Weight Bearing Right Lower Extremity: Right Weight Bearing/Tolerated Left Lower Extremity: Left Full Weight Bearing Gait Training Does the Patient Walk?: Yes Walk 10 feet (QC): 5 Walk 50 ft with 2 Turns(QC): 5 Walk 150 ft (QC): 5 Walking 10ft/uneven surface-QC: 5 Gait Persons Needed: 1 Gait Assistive Device: FWW slow, heavy wt bearing on FWW, needs some cuing for position in FWW Stair Training Stair Training: Handrails/: 2 handrails #of Steps: 4 1 Step (curb) (QC): 4 4 Steps (QC): 4 12 Steps (QC): 88 Stairs: Pattern: Step to pt. needed instruction in sequence for steps and wt bearing and use of UEs on rails Balance Picking up an Object (QC): 88 Exercises Supine Ex: Ankle pumps, Quad Set, Rolling, Glut sets, Heel Slides, Short Arc Quads, Scooting, Straight leg raise (x5 only on R), Hip abd/add Supine Reps: 12 Seated Therapy Exercises: Ankle pumps, Sit to stand, Long arc quads, Hip flexion, Hip abd/add Seated Reps: 12 NuStep Minutes: 8 NuStep Workload: 3 Assessment Current Status: Good Progress pt. appears nervous and anxious, deep moans and sighs as if in pain but denies pain. PT Group Home Goals Group Home Goals PT Supervisor Engraving Goals Time Frame: September 29, 2020 Roll Left & Right (QC): 6 Sit to Lying (QC): 6 Lying-Sitting on Side/Bed(QC): 6 Sit to Stand (QC): 6 Chair/Hkl-pv-Tisne Xfer(QC): 6 Toilet Transfer (QC): 6 Car Transfer (QC): 6 Does the Patient Walk: Yes Walk 10 feet (QC): 6 Walk 50ft with 2 Turns (QC): 6 Walk 150 ft (QC): 6 Walking 10ft on Uneven Surface: 6 1 Step (curb) (QC): 6 4 Steps (QC): 6 12 Steps (QC): 9 Picking up an Object (QC): 6 Does the Pt use WC or Scooter?: No Wheel 50 feet with 2 turns (QC: 9 Type: N/A Wheel 150 feet: 9 Type: N/A PT Plan Treatment/Plan Treatment Plan: Continue Plan of Care Treatment Plan: Bed Mobility, Concurrent Therapy, Education, Functional Activity Johan, Functional Strength, Group Therapy, Gait, Safety, Therapeutic Exercise, Transfers Treatment Duration: September 29, 2020 Frequency: At least 5 of 7 days/Wk (IRF) Estimated Hrs Per Day: 1.5 hours per day Patient and/or Family Agrees t: Yes Safety Risks/Education Patient Education: Gait Training, Transfer Techniques, Steps, Correct Positioning, Disease Process, Safety Issues Teaching Recipient: Patient Teaching Methods: Demonstration, Discussion Response to Teaching: Verbalize Understanding, Return Demonstration, Reinforcement Needed Time/GCodes Time In: 1000 Time Out: 1100 Total Billed Treatment Time: 60 Total Billed Treatment 1,GT15m,FA15m,EX30m STEVIE QUESADA BOAT OFFICER September 17, 2020 11:06
[2020-09-17] MEDS: HYDROcodone/APAP 5 MG/325 MG (LORTAB) TAB PO PRN (13:09)
--- NOTE | 2020-09-17 13:51 | Occupational Ther Daily Note ---
OT Current Status-Daily Note Subjective Pt. reports that she has been having loose BMs. Nursing aware. Declines any need for medication. Mental Status/Objective Patient Orientation: Person, Place ADL-Treatment Therapy Code Descriptions/Definitions Functional [place] Measure: 0=Not Assessed/NA 4=Minimal Assistance 1=Total Assistance 5=Supervision or Setup 2=Maximal Assistance 6=Modified [place] 3=Moderate Assistance 7=Complete IndependenceSCALE: Activities may be completed with or without assistive devices. 2-Wstljbunsc-hdwjxyu completes the activity by him/herself with no assistance from a helper. 5-Set-up or Clean-up Assistance-helper sets up or cleans up; patient completes activity. [place] assists only prior to or following the activity. 4-Supervision or Touching Assistance-helper provides verbal cues and/or touch ing/steadying and/or contact guard assistance as patient completes activity. Assistance may be provided throughout the activity or intermittently. 3-Partial/Moderate Assistance-helper does LESS THAN HALF the effort. [place] lifts, holds or supports trunk or limbs, but provides less than half the effort. 2-Substantial/Maximal Assistance-helper does MORE THAN HALF the effort. [place] lifts or holds trunk or limbs and provides more than half the effort. 3-Exjrjilav-actkny does ALL the effort. Patient does none of the effort to complete the activity. Or, the assistance of 2 or more helpers is required for the patient to complete the activity. If activity was not attempted, code reason: 7-Patient Refused. 9-Not Applicable-not attempted and the patient did not perform the activity before the current illness, exacerbation or injury. 10-Not Attempted due to Environmental Limitations-(lack of equipment, weather restraints, etc.). 88-Not Attempted due to Medical Conditions or Safety Concerns. Eating (QC): 6 Oral Hygiene (QC): 5 Shower/Bathe Self (QC): 4 Upper Body Dressing (QC): 5 Lower Body Dressing (QC): 3 (Min assist overall with AE) On/Off Footwear: 3 (Min assist with AE and cues ) Toileting Hygiene (QC): 6 Toilet Transfer (QC): 6 Other Treatment Pt. up in chair. Agrees to shower. Utilizes AE. Pt. able to recall hip precautions. Does require cues at times to remember how to use equipment. Education OT Patient Education: Correct positioning, Modified ADL techniques, Progress toward Goal/Update tx plan, Purpose of tx/functional activities, Reviewed precautions, Rehab process, Transfer techniques Teaching Recipient: Patient Teaching Methods: Demonstration, Discussion Response to Teaching: Verbalize Understanding, Return Demonstration OT Short Term Goals Short Term Goals Oral hygiene: 6 Toileting hygiene: 6 Shower/bathe self: 5 Upper body dressin Lower body dressin Putting on/taking off footwear: 4 OT [facility] Goals [facility] Goals Time Frame: September 21, 2020 Eating (QC): 6 Oral Hygiene (QC): 6 Toileting Hygiene (QC): 6 Shower/Bathe Self (QC): 6 Upper Body Dressing (QC): 6 Lower Body Dressing (QC): 6 On/Off Footwear (QC): 6 Additional Goals: 1-Demonstrate ADL Tasks, 2-Verbalize Understanding, 3- ImproveStrength/Johan 1=Demonstrate adherence to instructed precautions during ADL tasks. 2=Patient will verbalize/demonstrate understanding of assistive devices/modifications for ADL. 3=Patient will improve strength/tolerance for activity to enable patient to perform ADL's. OT Education/Plan Problem List/Assessment Assessment: Decreased Activ Tolerance Discharge Recommendations Plan/Recommendations: Continue POC Therapy Discharge Recommendati: Post Acute OT Equpiment Recommendations-D/C: Hip Kit Treatment Plan/Plan of Care Treatment,Training & Education: Yes Patient would benefit from OT for education, treatment and training to promote independence in ADL's, mobility, safety and/or upper extremity function for ADL's. Plan of Care: ADL Retraining, Caregiver Training, Functional Mobility, Group Exercise/Act as Ind, UE Funct Exercise/Act Treatment Duration: September 21, 2020 Frequency: At least 5 of 7 days/Wk (IRF) Estimated Hrs Per Day: 1.5 hours per day Agreement: Yes Rehab Potential: Good Time/GCodes Start Time: 08:15 Stop Time: 09:00 Total Time Billed (hr/min): 45 Billed Treatment Time 1, ADL x 45minutes ROSARIO HELLER OT September 17, 2020 13:51
--- NOTE | 2020-09-17 13:54 | Occupational Ther Daily Note ---
OT Current Status-Daily Note Subjective Pt. reports that she has cramping in stomach. Does not report pain level but does agree to take pain meds. Nursing administers. Mental Status/Objective Patient Orientation: Person ADL-Treatment Therapy Code Descriptions/Definitions Functional [place] Measure: 0=Not Assessed/NA 4=Minimal Assistance 1=Total Assistance 5=Supervision or Setup 2=Maximal Assistance 6=Modified [place] 3=Moderate Assistance 7=Complete IndependenceSCALE: Activities may be completed with or without assistive devices. 0-Mqxyvimmyd-uawjivr completes the activity by him/herself with no assistance from a helper. 5-Set-up or Clean-up Assistance-helper sets up or cleans up; patient completes activity. [place] assists only prior to or following the activity. 4-Supervision or Touching Assistance-helper provides verbal cues and/or touching/steadying and/or contact guard assistance as patient completes activity. Assistance may be provided throughout the activity or intermittently. 3-Partial/Moderate Assistance-helper does LESS THAN HALF the effort. [place] li fts, holds or supports trunk or limbs, but provides less than half the effort. 2-Substantial/Maximal Assistance-helper does MORE THAN HALF the effort. [place] lifts or holds trunk or limbs and provides more than half the effort. 8-Omqvjpehb-nfbxfv does ALL the effort. Patient does none of the effort to complete the activity. Or, the assistance of 2 or more helpers is required for the patient to complete the activity. If activity was not attempted, code reason: 7-Patient Refused. 9-Not Applicable-not attempted and the patient did not perform the activity before the current illness, exacerbation or injury. 10-Not Attempted due to Environmental Limitations-(lack of equipment, weather restraints, etc.). 88-Not Attempted due to Medical Conditions or Safety Concerns. Other Treatment Pt. reluctantly agrees to work with OT. States that she is tired. Pt. is able to stand with SBA at walker, and ambulate to therapy gym. Pt. dons 1 lb. wrist weights and completes bilateral UE exercises with activity. Pt. tolerates well. All needs met and PT comes in to work with pt. Education OT Patient Education: Correct positioning, Exercise program, Modified ADL techniques, Progress toward Goal/Update tx plan, Purpose of tx/functional activities, Reviewed precautions, Rehab process, Transfer techniques Teaching Recipient: Patient, Significant Other Teaching Methods: Demonstration, Discussion Response to Teaching: Verbalize Understanding, Return Demonstration OT Short Term Goals Short Term Goals Oral hygiene: 6 Toileting hygiene: 6 Shower/bathe self: 5 Upper body dressin Lower body dressin Putting on/taking off footwear: 4 OT Half-Way Goals Half-Way Goals Time Frame: September 21, 2020 Eating (QC): 6 Oral Hygiene (QC): 6 Toileting Hygiene (QC): 6 Shower/Bathe Self (QC): 6 Upper Body Dressing (QC): 6 Lower Body Dressing (QC): 6 On/Off Footwear (QC): 6 Additional Goals: 1-Demonstrate ADL Tasks, 2-Verbalize Understanding, 3- ImproveStrength/Johan 1=Demonstrate adherence to instructed precautions during ADL tasks. 2=Patient will verbalize/demonstrate understanding of assistive devices/modifications for ADL. 3=Patient will improve strength/tolerance for activity to enable patient to perform ADL's. OT Education/Plan Problem List/Assessment Assessment: Decreased Activ Tolerance Discharge Recommendations Plan/Recommendations: Continue POC Therapy Discharge Recommendati: Post Acute OT Equpiment Recommendations-D/C: Hip Kit Treatment Plan/Plan of Care Treatment,Training & Education: Yes Patient would benefit from OT for education, treatment and training to promote independence in ADL's, mobility, safety and/or upper extremity function for ADL's. Plan of Care: ADL Retraining, Caregiver Training, Functional Mobility, Group Exercise/Act as Ind, UE Funct Exercise/Act Treatment Duration: September 21, 2020 Frequency: At least 5 of 7 days/Wk (IRF) Estimated Hrs Per Day: 1.5 hours per day Agreement: Yes Rehab Potential: Good Time/GCodes Start Time: 13:00 Stop Time: 13:30 Total Time Billed (hr/min): 30 Billed Treatment Time 1, FA x 30minutes ROSARIO HELLER OT September 17, 2020 13:54
--- NOTE | 2020-09-17 14:08 | Physical Therapy Daily Note ---
PT Daily Note-Current Subjective Pt. agrees to Rx but states she will be ready to go to bed after Rx as she is fatigued Pain Location: No Pain Reported Transfers SCALE: Activities may be completed with or without assistive devices. 3-Uhbhmhylur-wmigycb completes the activity by him/herself with no assistance from a helper. 5-Set-up or Clean-up Assistance-helper sets up or cleans up; patient completes activity. [place] assists only prior to or following the activity. 4-Supervision or Touching Assistance-helper provides verbal cues and/or touching/steadying and/or contact guard assistance as patient completes activity. Assistance may be provided throughout the activity or intermittently. 3-Partial/Moderate Assistance-helper does LESS THAN HALF the effort. [place] lifts, holds or supports trunk or limbs, but provides less than half the effort. 2-Substantial/Maximal Assistance-helper does MORE THAN HALF the effort. [place] lifts or holds trunk or limbs and provides more than half the effort. 9-Phdajjbwe-favvlx does ALL the effort. Patient does none of the effort to complete the activity. Or, the assistance of 2 or more helpers is required for the patient to complete the activity. If activity was not attempted, code reason: 7-Patient Refused. 9-Not Applicable-not attempted and the patient did not perform the activity before the current illness, exacerbation or injury. 10-Not Attempted due to Environmental Limitations-(lack of equipment, weather restraints, etc.). 88-Not Attempted due to Medical Conditions or Safety Concerns. Weight Bearing Right Lower Extremity: Right Weight Bearing/Tolerated Left Lower Extremity: Left Full Weight Bearing Gait Training Does the Patient Walk?: Yes Gait Assistive Device: Cane Large Base Quad 150ft FWW SBA toCGA, no LOB Exercises Seated Therapy Exercises: Ankle pumps, Sit to stand, Long arc quads, Hip flexion Seated Reps: 12 Standing: Hip Abduction, Hamstring curls, Heel/toe raises, Marching Standing Reps: 12 Treatments in bed after Rx, present , guero at hand Assessment Current Status: Good Progress PT [facility] Goals [facility] Goals PT Pipe [employer] Boiler Covers Supervisor Goals Time Frame: September 29, 2020 Roll Left & Right (QC): 6 Sit to Lying (QC): 6 Lying-Sitting on Side/Bed(QC): 6 Sit to Stand (QC): 6 Chair/Pgn-ed-Sjuet Xfer(QC): 6 Toilet Transfer (QC): 6 Car Transfer (QC): 6 Does the Patient Walk: Yes Walk 10 feet (QC): 6 Walk 50ft with 2 Turns (QC): 6 Walk 150 ft (QC): 6 Walking 10ft on Uneven Surface: 6 1 Step (curb) (QC): 6 4 Steps (QC): 6 12 Steps (QC): 9 Picking up an Object (QC): 6 Does the Pt use WC or Scooter?: No Wheel 50 feet with 2 turns (QC: 9 Type: N/A Wheel 150 feet: 9 Type: N/A PT Plan Treatment/Plan Treatment Plan: Continue Plan of Care Treatment Plan: Bed Mobility, Concurrent Therapy, Education, Functional Activity Johan, Functional Strength, Group Therapy, Gait, Safety, Therapeutic Exercise, Transfers Treatment Duration: September 29, 2020 Frequency: At least 5 of 7 days/Wk (IRF) Estimated Hrs Per Day: 1.5 hours per day Patient and/or Family Agrees t: Yes Safety Risks/Education Patient Education: Gait Training, Transfer Techniques, Correct Positioning, Safety Issues Teaching Recipient: Patient Teaching Methods: Demonstration, Discussion Response to Teaching: Verbalize Understanding, Return Demonstration, Reinforcement Needed Time/GCodes Time In: 1330 Time Out: 1345 Total Billed Treatment Time: 15 Total Billed Treatment 1,EX15m STEVIE QUESADA PTA September 17, 2020 14:08
[2020-09-17] MEDS: RIVAROXABAN 20 MG TABLET (XARELTO) PO SCH (16:57)
[2020-09-17 19:52] VITALS: BP 137/71
[2020-09-17] MEDS: MONTELUKAST 10 MG (SINGULAIR) TAB PO SCH (20:22)
--- NOTE | 2020-09-18 05:01 | Discharge Summary ---
Diagnosis/Chief Complaint Date of Admission Sep 07, 2020 at 09:32 Date of Discharge Discharge Date: September 18, 2020 Discharge Diagnosis Assessment: Right hip fracture CLL Anemia of chronic disease CKD Stage 4 HTN HLP COPD PVD CAD Carotid stenosis Dementia Plan: IRF protocol Monitor closely Dementia monitoring 09/08/20: Monitor closely Monitor confusion 09/09/20: Monitor closely Fall risk 09/10/20: Monitor closely Monitor pain 09/11/20: Monitor pain Fall risk 09/12/20: Monitor pain Weaned O2 09/13/20: DC next week Monitor BP 09/14/2020: Much improved status Discharge on Thursday with home health 09/15/20: Hold Questran for constipation Monitor pain 09/16/20: Monitor loose stools Changed dressing Labs in morning 09/17/20: Monitor pain Discharge tomorrow (1) Closed right hip fracture Status: Acute (2) Acute renal failure superimposed on chronic kidney disease Status: Acute (3) Anemia of chronic disease Status: Acute (4) Left knee pain Status: Acute (5) Fall on same level Status: Acute (6) Inflammatory arthropathy Status: Acute (7) HLP (8) Abnormal stress test (9) HTN (hypertension) (10) SOB (shortness of breath) (11) CAD (coronary artery disease) Discharge Summary Discharge Physical Examination Allergies: Coded Allergies: No Known Drug Allergies (Verified , 05/03/16) Vitals & I&Os Vital Signs Date Time Temp Pulse Resp B/P (MAP) Pulse Ox O2 Delivery O2 Flow Rate FiO2 09/18/20 11:20 36.3 71 16 151/67 96 Room Air General Appearance: Alert, Oriented X3, Cooperative Respiratory: Clear to Auscultation Cardiovascular: Regular Rate Neuro: Normal Gait Psych/Mental Status: Mental Status NL Hospital Course Was the Problem List Reviewed?: Yes Hospital course: Pt had a lengthy hospital course for twelve days after she was admitted for a right hip fracture recovery. Her dementia did have a slower recovery but labs remained normal, she had no evidence of any other decompensation while she was hospitalized. She was found to have participated in everything the therapy required, she was able to be functional enough and independent enough to return home with home health with spouse and pain medication, doing very well to cont rol the pain and overall was ready fro discharge. Labs (last 24 hrs) Laboratory Tests 09/08/20 05:30: White Blood Count 6.2, Red Blood Count 3.56L, Hemoglobin 10.0L, Hematocrit 32L, Mean Corpuscular Volume 89, Mean Corpuscular Hemoglobin 28, Mean Corpuscular Hemoglobin Concent 32, Red Cell Distribution Width 16.2H, Platelet Count 166, Mean Platelet Volume 9.8, Immature Granulocyte % (Auto) 1, Neutrophils (%) (Auto) 77H, Lymphocytes (%) (Auto) 7L, Monocytes (%) (Auto) 15H, Eosinophils (%) (Auto) 0, Basophils (%) (Auto) 0, Neutrophils # (Auto) 4.8, Lymphocytes # (Auto) 0.5L, Monocytes # (Auto) 0.9, Eosinophils # (Auto) 0.0, Basophils # (Auto) 0.0, Immature Granulocyte # (Auto) 0.0, Sodium Level 140, Potassium Level 4.3, Chloride Level 108H, Carbon Dioxide Level 22, Anion Gap 10, Blood Urea Nitrogen 26H, Creatinine 1.02, Estimat Glomerular Filtration Rate 52, BUN/Creatinine Ratio 25, Glucose Level 101, Calcium Level 7.5L, Corrected Calcium 8.1L, Total Bilirubin 0.5, Aspartate Amino Transf (AST/SGOT) 32, Alanine Aminotransferase (ALT/SGPT) 17, Alkaline Phosphatase 67, Total Protein 6.0L, Albumin 3.3 09/09/20 05:40: Hemoglobin 10.5L, Hematocrit 33L 09/10/20 05:17: White Blood Count 6.5, Red Blood Count 3.76L, Hemoglobin 10.6L, Hematocrit 34L, Mean Corpuscular Volume 89, Mean Corpuscular Hemoglobin 28, Mean Corpuscular Hemoglobin Concent 32, Red Cell Distribution Width 15.7H, Platelet Count 213, Mean Platelet Volume 10.3, Immature Granulocyte % (Auto) 2, Neutrophils (%) (Auto) 72, Lymphocytes (%) (Auto) 10L, Monocytes (%) (Auto) 16H, Eosinophils (%) (Auto) 1, Basophils (%) (Auto) 0, Neutrophils # (Auto) 4.7, Lymphocytes # (Auto) 0.7L, Monocytes # (Auto) 1.0, Eosinophils # (Auto) 0.0, Basophils # (Auto) 0.0, Immature Granulocyte # (Auto) 0.1, Sodium Level 141, Potassium Level 4.2, Chloride Level 106, Carbon Dioxide Level 24, Anion Gap 11, Blood Urea Nitrogen 18, Creatinine 0.96, Estimat Glomerular Filtration Rate 56, BUN/Creatinine Ratio 19, Glucose Level 105, Calcium Level 8.0L, Corrected Calcium 8.6, Total Bilirubin 0.7, Aspartate Amino Transf (AST/SGOT) 31, Alanine Aminotransferase (ALT/SGPT) 28, Alkaline Phosphatase 76, Total Protein 5.9L, Albumin 3.2 09/17/20 05:26: White Blood Count 6.5, Red Blood Count 3.15L, Hemoglobin 8.7L, Hematocrit 28L, Mean Corpuscular Volume 87, Mean Corpuscular Hemoglobin 28, Mean Corpuscular Hemoglobin Concent 32, Red Cell Distribution Width 16.1H, Platelet Count 197, Mean Platelet Volume 10.2, Immature Granulocyte % (Auto) 1, Neutrophils (%) (Auto) 76H, Lymphocytes (%) (Auto) 10L, Monocytes (%) (Auto) 12, Eosinophils (%) (Auto) 1, Basophils (%) (Auto) 0, Neutrophils # (Auto) 5.0, Lymphocytes # (Auto) 0.7L, Monocytes # (Auto) 0.8, Eosinophils # (Auto) 0.0, Basophils # (Auto) 0.0, Immature Granulocyte # (Auto) 0.1, Sodium Level 142, Potassium Level 3.7, Chloride Level 107, Carbon Dioxide Level 19L, Anion Gap 16H, Blood Urea Nitrogen 14, Creatinine 0.95, Estimat Glomerular Filtration Rate 57, BUN/Creatinine Ratio 15, Glucose Level 103, Calcium Level 7.1L, Corrected Calcium 7.7L, Total Bi lirubin 0.9, Aspartate Amino Transf (AST/SGOT) 20, Alanine Aminotransferase (ALT/SGPT) 18, Alkaline Phosphatase 80, Total Protein 5.8L, Albumin 3.2 Pending Labs Laboratory Tests 09/08/20 05:30: White Blood Count 6.2, Red Blood Count 3.56, Hemoglobin 10.0, Hematocrit 32, Mean Corpuscular Volume 89, Mean Corpuscular Hemoglobin 28, Mean Corpuscular Hemoglobin Concent 32, Red Cell Distribution Width 16.2, Platelet Count 166, Mean Platelet Volume 9.8, Immature Granulocyte % (Auto) 1, Neutrophils (%) (Auto) 77, Lymphocytes (%) (Auto) 7, Monocytes (%) (Auto) 15, Eosinophils (%) (Auto) 0, Basophils (%) (Auto) 0, Neutrophils # (Auto) 4.8, Lymphocytes # (Auto) 0.5, Monocytes # (Auto) 0.9, Eosinophils # (Auto) 0.0, Basophils # (Auto) 0.0, Immature Granulocyte # (Auto) 0.0, Sodium Level 140, Potassium Level 4.3, Chloride Level 108, Carbon Dioxide Level 22, Anion Gap 10, Blood Urea Nitrogen 26, Creatinine 1.02, Estimat Glomerular Filtration Rate 52, BUN/Creatinine Ratio 25, Glucose Level 101, Calcium Level 7.5, Corrected Calcium 8.1, Total Bilirubin 0.5, Aspartate Amino Transf (AST/SGOT) 32, Alanine Aminotransferase (ALT/SGPT) 17, Alkaline Phosphatase 67, Total Protein 6.0, Albumin 3.3 09/09/20 05:40: Hemoglobin 10.5, Hematocrit 33 09/10/20 05:17: White Blood Count 6.5, Red Blood Count 3.76, Hemoglobin 10.6, Hematocrit 34, Mean Corpuscular Volume 89, Mean Corpuscular Hemoglobin 28, Mean Corpuscular Hemoglobin Concent 32, Red Cell Distribution Width 15.7, Platelet Count 213, Mean Platelet Volume 10.3, Immature Granulocyte % (Auto) 2, Neutrophils (%) (Auto) 72, Lymphocytes (%) (Auto) 10, Monocytes (%) (Auto) 16, Eosinophils (%) (Auto) 1, Basophils (%) (Auto) 0, Neutrophils # (Auto) 4.7, Lymphocytes # (Auto) 0.7, Monocytes # (Auto) 1.0, Eosinophils # (Auto) 0.0, Basophils # (Auto) 0.0, Immature Granulocyte # (Auto) 0.1, Sodium Level 141, Potassium Level 4.2, Chloride Level 106, Carbon Dioxide Level 24, Anion Gap 11, Blood Urea Nitrogen 18, Creatinine 0.96, Estimat Glomerular Filtration Rate 56, BUN/Creatinine Ratio 19, Glucose Level 105, Calcium Level 8.0, Corrected Calcium 8.6, Total Bilirubin 0.7, Aspartate Amino Transf (AST/SGOT) 31, Alanine Aminotransferase (ALT/SGPT) 28, Alkaline Phosphatase 76, Total Protein 5.9, Albumin 3.2 09/17/20 05:26: White Blood Count 6.5, Red Blood Count 3.15, Hemoglobin 8.7, Hematocrit 28, Mean Corpuscular Volume 87, Mean Corpuscular Hemoglobin 28, Mean Corpuscular Hemoglobin Concent 32, Red Cell Distribution Width 16.1, Platelet Count 197, Mean Platelet Volume 10.2, Immature Granulocyte % (Auto) 1, Neutrophils (%) (Auto) 76, Lymphocytes (%) (Auto) 10, Monocytes (%) (Auto) 12, Eosinophils (%) (Auto) 1, Basophils (%) (Auto) 0, Neutrophils # (Auto) 5.0, Lymphocytes # (Auto) 0.7, Monocytes # (Auto) 0.8, Eosinophils # (Auto) 0.0, Basophils # (Auto) 0.0, Immature Granulocyte # (Auto) 0.1, Sodium Level 142, Potassium Level 3.7, Chloride Level 107, Carbon Dioxide Level 19, Anion Gap 16, Blood Urea Nitrogen 14, Creatinine 0.95, Estimat Glomerular Filtration Rate 57, BUN/Creatinine Ratio 15, Glucose Level 103, Calcium Level 7.1, Corrected Calcium 7.7, Total Bilirubin 0.9, Aspartate Amino Transf (AST/SGOT) 20, Alanine Aminotransferase (ALT/SGPT) 18, Alkaline Phosphatase 80, Total Protein 5.8, Albumin 3.2 Discharge Home Medications: Active Scripts Active Prevalite Packet (Cholestyramine/Aspartame) 4 Gm Powd.pack 4 Gm PO BID PRN Hydrocodone-Acetamin 5-325 mg (Hydrocodone/Acetaminophen) 1 Each Tablet 1 Ea PO Q6H PRN Reported Systane Gel Eye Drops (Propylene Glycol/Peg 400) 10 Ml Drops.gel 1-2 Drops OP HS Calcium (Calcium Carbonate) 600 Mg Tablet 600 Mg PO DAILY Fish Oil 1,000 mg Capsule (Marlow 3 Polyunsat Fatty Acids) 1,000 Mg Cap 1,000 Mg PO DAILY Magnesium (Magnesium Oxide) 400 Mg Tablet 400 Mg PO DAILY Potassium Gluconate 595 MG (Potassium Gluconate) 99 Mg Tablet 99 Mg PO DAILY Aspirin EC (Aspirin) 81 Mg Tablet.dr 81 Mg PO DAILY Advair 250-50 Diskus (Fluticasone/Salmeterol) 1 Each Blst.w.dev 1 Each IH BID Fexofenadine HCl 180 Mg Tablet 180 Mg PO DAILY Bactrim Ds Tablet (Sulfamethoxazole/Trimethoprim) 1 Each Tablet 1 Ea PO BID ON MON & FRI Xarelto (Rivaroxaban) 20 Mg Tablet 20 Mg PO HS Pantoprazole Sodium 40 Mg Tablet.dr 40 Mg PO DAILY Citalopram HBr (Citalopram Hydrobromide) 20 Mg Tablet 20 Mg PO HS Montelukast Sodium 10 Mg Tablet 10 Mg PO HS Zenpep Dr 40,000 Units Capsule (Lipase/Protease/Amylase) 1 Each Capsule.dr 1 Ea PO 5XD- BEFORE MEALS AND SNACKS Venclexta (Venetoclax) 100 Mg Tablet 200 Mg PO DAILY TAKES 2 (100MG) TABS Acyclovir 800 Mg Tablet 800 Mg PO BID Donepezil HCl 10 Mg Tablet 10 Mg PO DAILY Atorvastatin Calcium 40 Mg Tablet 40 Mg PO HS Atenolol 25 Mg Tablet 25 Mg PO DAILY Instructions to patient/family Please see electronic discharge instructions given to patient. Diagnosis/Problems Diagnosis/Problems (1) Closed right hip fracture Status: Acute (2) Acute renal failure superimposed on chronic kidney disease Status: Acute (3) Anemia of chronic disease Status: Acute (4) Left knee pain Status: Acute (5) Fall on same level Status: Acute (6) Inflammatory arthropathy Status: Acute (7) HLP (8) Abnormal stress test (9) HTN (hypertension) (10) SOB (shortness of breath) (11) CAD (coronary artery disease) EDWIGE SRINIVASAN DO September 18, 2020 05:01
[2020-09-18 08:00] VITALS: BP 151/67
--- NOTE | 2020-09-18 08:10 | Therapy Team Discharge Summary ---
Therapy Discharge Summary Discharge Recommendations Date of Discharge Physical Therapy Patient came to rehab following a right hip fx. Upon evaluation patient performed bed mobility and transfers with min/mod assist, car transfer with min/mod assist, ambulated 200' with a rolling walker with min/mod assist (including 50' with at least 2 turns of 90 degrees and 10' over an uneven surface), and went up and down 4 steps with min/mod assist. Patient has been performing bed mobility and transfer training, balance and endurance training, functional strengthening, stair training, gait training, and education. Patient has made some progress but has only met her usp goals for bed mobility and transfers. Now, patient performs bed mobility and transfers with independence, car transfer with setup, ambulates 150' with a rolling walker with setup (including 50' with at least 2 turns of 90 degrees and 10' over an uneven surface), and can go up and down 4 steps using 2 handrails with CGA. Patient is being discharged from this facility today and will be discharged from PT at this time. Occupational Therapy Decreased Activ Tolerance PT Detention Goals Machine Shop Repair Technician Goals PT Machine Shop Repair Technician Goals Time Frame: September 29, 2020 Roll Left to Right (QC): 6 Sit to Lying (QC): 6 Lying-Sitting on Side/Bed(QC): 6 Sit to Stand (QC): 6 Chair/[id number]-[id number] Xfer(QC): 6 Car Transfer (QC): 6 Does the Patient Walk: Yes Walk 10 feet (QC): 6 Walk 10ft-Uneven Surface(QC): 6 Walk 50ft with 2 Turns (QC): 6 Walk 150 ft (QC): 6 Does the Pt use WC or Scooter?: No Wheel 50 feet with 2 turns (QC: 9 1 Step (curb) (QC): 6 4 Steps (QC): 6 12 Steps (QC): 9 Picking up an Object (QC): 6 OT Machine Shop Repair Technician Goals Detention Goals Time Frame: September 21, 2020 Eating (QC): 6 Oral Hygiene (QC): 6 Shower/Bathe Self (QC): 6 Upper Body Dressing (QC): 6 Lower Body Dressing (QC): 6 On/Off Footwear (QC): 6 Toileting Hygiene (QC): 6 Toilet/Commode Transfer (QC): 6 Additional Goals: 1-Demonstrate ADL Tasks, 2-Verbalize Understanding, 3- ImproveStrength/Johan 1=Demonstrate adherence to instructed precautions during ADL tasks. 2=Patient will verbalize/demonstrate understanding of assistive devices/modifications for ADL. 3=Patient will improve strength/tolerance for activity to enable patient to perform ADL's. Speech Machine Shop Repair Technician Goals Machine Shop Repair Technician Goals Patient will improve cognitive-communication abilities in order to complete daily living tasks with minimal assist. NINA ARCHIBALD PT September 18, 2020 08:09
[2020-09-18] MEDS: DONEPEZIL 10 MG (ARICEPT) TAB PO SCH (10:07)
[2020-09-18] MEDS: fluCOnazole (DIFLUCAN) 100 MG TAB PO SCH (10:07)
[2020-09-18] MEDS: PANTOPRAZOLE 40 MG (PROTONIX) TAB PO SCH (10:07)
[2020-09-18] MEDS: LORATADINE (CLARITIN) 10 MG TAB PO SCH (10:07)
[2020-09-18] MEDS: ATENOLOL 25 MG (TENORMIN) TAB PO SCH (10:07)
[2020-09-18] MEDS: CHOLESTYRAMINE 4 GM (QUESTRAN LITE, PREVALITE) PKT PO SCH (10:08)
[2020-09-18] MEDS: ACYCLOVIR 400 MG TABLET (ZOVIRAX) PO SCH (10:08)
[2020-09-18] MEDS: VENETOCLAX PO SCH (10:12)
[2020-09-18] MEDS: DICLOFENAC 1% GEL 100 GM (VOLTAREN) TUBE TOP SCH (10:14)
--- NOTE | 2020-09-18 10:23 | Therapy Team Discharge Summary ---
Therapy Discharge Summary Discharge Recommendations Date of Discharge Occupational Therapy Decreased Activ Tolerance Speech-Language Pathology Patient was admitted to the ARU s/p hip fracture. Patient has received cognitive therapy with focus on the areas of safety awareness, memory, and information recall. Pt has made good progress on recall of new information. Patient is discharging to her home where she lives with her . PT Snf Goals Spa Therapist Goals PT Spa Therapist Goals Time Frame: September 29, 2020 Roll Left to Right (QC): 6 Sit to Lying (QC): 6 Lying-Sitting on Side/Bed(QC): 6 Sit to Stand (QC): 6 Chair/Lsu-iw-Wbvzw Xfer(QC): 6 Car Transfer (QC): 6 Does the Patient Walk: Yes Walk 10 feet (QC): 6 Walk 10ft-Uneven Surface(QC): 6 Walk 50ft with 2 Turns (QC): 6 Walk 150 ft (QC): 6 Does the Pt use WC or Scooter?: No Wheel 50 feet with 2 turns (QC: 9 1 Step (curb) (QC): 6 4 Steps (QC): 6 12 Steps (QC): 9 Picking up an Object (QC): 6 OT Spa Therapist Goals Spa Therapist Goals Time Frame: September 21, 2020 Eating (QC): 6 Oral Hygiene (QC): 6 Shower/Bathe Self (QC): 6 Upper Body Dressing (QC): 6 Lower Body Dressing (QC): 6 On/Off Footwear (QC): 6 Toileting Hygiene (QC): 6 Toilet/Commode Transfer (QC): 6 Additional Goals: 1-Demonstrate ADL Tasks, 2-Verbalize Understanding, 3-ImproveStrength/Johan 1=Demonstrate adherence to instructed precautions during ADL tasks. 2=Patient will verbalize/demonstrate understanding of assistive devices/modifications for ADL. 3=Patient will improve strength/tolerance for activity to enable patient to perform ADL's. Speech Snf Goals Snf Goals Patient will improve cognitive-communication abilities in order to complete daily living tasks with minimal assist. YING CONKLIN September 18, 2020 10:23
[2020-09-18 11:20] VITALS: BP 151/67
--- NOTE | 2020-09-19 11:49 | Therapy Team Discharge Summary ---
Therapy Discharge Summary Discharge Recommendations Date of Discharge September 18, 2020 at 11:20 Therapy D/C Recommendations: Home w/ Family Support, Occupational Therapy Home Care Occupational Therapy Pt. was seen by OT to work on increased overall strength and independence. At discharge, pt. requires set up/min assist with most tasks. Pt. discharging home with spouse. Recommend hip kit, and home health OT. Decreased Activ Tolerance, Impaired I ADL's, Impaired Self-Care Skills PT Paper Cutter Goals Paper Cutter Goals PT Shelter Goals Time Frame: September 29, 2020 Roll Left to Right (QC): 6 Sit to Lying (QC): 6 Lying-Sitting on Side/Bed(QC): 6 Sit to Stand (QC): 6 Chair/[id number]-Wxxhb Xfer(QC): 6 Car Transfer (QC): 6 Does the Patient Walk: Yes Walk 10 feet (QC): 6 Walk 10ft-Uneven Surface(QC): 6 Walk 50ft with 2 Turns (QC): 6 Walk 150 ft (QC): 6 Does the Pt use WC or Scooter?: No Wheel 50 feet with 2 turns (QC: 9 1 Step (curb) (QC): 6 4 Steps (QC): 6 12 Steps (QC): 9 Picking up an Object (QC): 6 OT Shelter Goals Shelter Goals Time Frame: September 21, 2020 Eating (QC): 6 (met) Oral Hygiene (QC): 6 (met) Shower/Bathe Self (QC): 6 (not met) Upper Body Dressing (QC): 6 (not met) Lower Body Dressing (QC): 6 (not met) On/Off Footwear (QC): 6 (not met) Toileting Hygiene (QC): 6 (not met) Toilet/Commode Transfer (QC): 6 (not met) Additional Goals: 1-Demonstrate ADL Tasks, 2-Verbalize Understanding, 3- ImproveStrength/Johan 1=Demonstrate adherence to instructed precautions during ADL tasks. 2=Patient will verbalize/demonstrate understanding of assistive devices/modifications for ADL. 3=Patient will improve strength/tolerance for activity to enable patient to perform ADL's. Speech Shelter Goals Shelter Goals Patient will improve cognitive-communication abilities in order to complete daily living tasks with minimal assist. ROSARIO HELLER OT September 19, 2020 11:49
== END 2020-09-18 11:20 | disposition home health service (06) | DRG 560 ==
PROVIDERS: ADMIT Internal Medicine; ATTEND Internal Medicine
DX: S72.001D Fracture of unspecified part of neck of right femur, subsequent encounter for closed fracture with routine healing (principal); C91.10 Chronic lymphocytic leukemia of B-cell type not having achieved remission; N18.4 Chronic kidney disease, stage 4 (severe); I12.9 Hypertensive chronic kidney disease with stage 1 through stage 4 chronic kidney disease, or unspecified chronic kidney disease; I25.10 Atherosclerotic heart disease of native coronary artery without angina pectoris; I73.9 Peripheral vascular disease, unspecified; D63.8 Anemia in other chronic diseases classified elsewhere; M25.561 Pain in right knee; E78.5 Hyperlipidemia, unspecified; J44.9 Chronic obstructive pulmonary disease, unspecified; F03.90 Unspecified dementia, unspecified severity, without behavioral disturbance, psychotic disturbance, mood disturbance, and anxiety; K21.9 Gastro-esophageal reflux disease without esophagitis; M19.91 Primary osteoarthritis, unspecified site; H54.3 Unqualified visual loss, both eyes; H91.90 Unspecified hearing loss, unspecified ear; F41.9 Anxiety disorder, unspecified; F32.9 Major depressive disorder, single episode, unspecified; Z95.5 Presence of coronary angioplasty implant and graft; Z87.891 Personal history of nicotine dependence; Z85.3 Personal history of malignant neoplasm of breast; Z79.82 Long term (current) use of aspirin; W18.30XD Fall on same level, unspecified, subsequent encounter; Y92.481 Parking lot as the place of occurrence of the external cause
CPT/HCPCS: 36415; 80053; 85014; 85018; 85025; 94640; 94760

== ENCOUNTER 2020-11-29 13:42 | Outpatient (RCR) | payer MEDICARE ==
[2020-09-04 12:59] LABS: BASOPHILS % (AUTO) 0 % (0-10); EOSINOPHILS % (AUTO) 0 % (0-10); HEMATOCRIT 30 % (35-52); HEMOGLOBIN 9.1 g/dL (11.5-16.0); LYMPHOCYTES # (AUTO) 0.5 10^3/uL (1.0-4.0); LYMPHOCYTES % (AUTO) 9 % (12-44); MEAN CORPUSCULAR HEMOGLOBIN 27 pg (25-34); MEAN CORPUSCULAR HGB CONC 30 g/dL (32-36); MEAN CORPUSCULAR VOLUME 90 fL (80-99); MEAN PLATELET VOLUME 9.7 fL (9.0-12.2); MONOCYTES % (AUTO) 17 % (0-12); NEUTROPHILS # (AUTO) 4.2 10^3/uL (1.8-7.8); NEUTROPHILS % (AUTO) 73 % (42-75); PLATELET COUNT 210 10^3/uL (130-400); WHITE BLOOD COUNT 5.7 10^3/uL (4.3-11.0)
[2020-09-04 13:22] LABS: ALBUMIN 3.8 GM/DL (3.2-4.5); BILIRUBIN,TOTAL 0.7 MG/DL (0.1-1.0); CREATININE SERUM 2.77 MG/DL (0.60-1.30); POTASSIUM 3.5 MMOL/L (3.6-5.0); TOTAL PROTEIN 6.7 GM/DL (6.4-8.2)
--- NOTE | 2020-09-04 14:44 | Diagnostic Imaging Report ---
PROCEDURE: US left lower extremity venous. TECHNIQUE: Multiple real-time grayscale images were obtained over the left lower extremity in various projections. Additional duplex Doppler and color Doppler images were also obtained. INDICATION: Left large vin-swelling. There is no evidence of left lower extremity DVT. Left lower extremity deep venous system shows normal compressibility with normal response to augmentation and Valsalva. No fluid collection or mass is detected. IMPRESSION: No evidence of left lower extremity DVT. Dictated by: Dictated on workstation # [id number]
[2020-10-02 13:36] LABS: BASOPHILS % (AUTO) 0 % (0-10); EOSINOPHILS % (AUTO) 0 % (0-10); HEMATOCRIT 30 % (35-52); HEMOGLOBIN 9.5 g/dL (11.5-16.0); LYMPHOCYTES # (AUTO) 0.7 10^3/uL (1.0-4.0); LYMPHOCYTES % (AUTO) 15 % (12-44); MEAN CORPUSCULAR HEMOGLOBIN 28 pg (25-34); MEAN CORPUSCULAR HGB CONC 31 g/dL (32-36); MEAN CORPUSCULAR VOLUME 90 fL (80-99); MEAN PLATELET VOLUME 9.8 fL (9.0-12.2); MONOCYTES % (AUTO) 20 % (0-12); NEUTROPHILS # (AUTO) 3.2 10^3/uL (1.8-7.8); NEUTROPHILS % (AUTO) 65 % (42-75); PLATELET COUNT 274 10^3/uL (130-400); WHITE BLOOD COUNT 4.9 10^3/uL (4.3-11.0)
[2020-10-02 13:54] LABS: ALBUMIN 3.5 GM/DL (3.2-4.5); BILIRUBIN,TOTAL 0.7 MG/DL (0.1-1.0); CREATININE SERUM 1.14 MG/DL (0.60-1.30); POTASSIUM 3.5 MMOL/L (3.6-5.0); TOTAL PROTEIN 6.1 GM/DL (6.4-8.2)
[2020-10-02 17:01] LABS: MAGNESIUM 0.7 MG/DL (1.6-2.4)
[2020-10-09 11:44] LABS: CALCIUM 9.2 MG/DL (8.5-10.1); CREATININE SERUM 1.05 MG/DL (0.60-1.30); MAGNESIUM 1.3 MG/DL (1.6-2.4); POTASSIUM 4.4 MMOL/L (3.6-5.0)
[2020-10-30 14:34] LABS: BASOPHILS % (AUTO) 0 % (0-10); EOSINOPHILS % (AUTO) 0 % (0-10); HEMATOCRIT 31 % (35-52); HEMOGLOBIN 9.5 g/dL (11.5-16.0); LYMPHOCYTES # (AUTO) 0.9 X 10^3 (1.0-4.0); LYMPHOCYTES % (AUTO) 13 % (12-44); MEAN CORPUSCULAR HEMOGLOBIN 29 pg (25-34); MEAN CORPUSCULAR HGB CONC 31 g/dL (32-36); MEAN CORPUSCULAR VOLUME 93 fL (80-99); MONOCYTES # (AUTO) 0.9 X 10^3 (0.0-1.0); MONOCYTES % (AUTO) 13 % (0-12); NEUTROPHILS # (AUTO) 5.3 X 10^3 (1.8-7.8); NEUTROPHILS % (AUTO) 73 % (42-75); PLATELET COUNT 283 10^3/uL (130-400); WHITE BLOOD COUNT 7.2 10^3/uL (4.3-11.0)
[2020-10-30 14:56] LABS: ALANINE AMINOTRANSFERASE 10 U/L (0-55); ALBUMIN 3.6 GM/DL (3.2-4.5); ALKALINE PHOSPHATASE 107 U/L (40-136); BILIRUBIN,TOTAL 0.8 MG/DL (0.1-1.0); BUN/CREATININE RATIO 13; CALCIUM 8.6 MG/DL (8.5-10.1); CARBON DIOXIDE 25 MMOL/L (21-32); CHLORIDE 105 MMOL/L (98-107); CREATININE SERUM 0.86 MG/DL (0.60-1.30); GFR ESTIMATED > 60; GLUCOSE 102 MG/DL (70-105); POTASSIUM 4.3 MMOL/L (3.6-5.0); SODIUM 137 MMOL/L (135-145)
[~2020-11-29 13:42] MED LIST changes: +ACETAMINOPHEN 325 MG TABLET PO PRN; +CEFUROXIME INJECTION 750 MG in WATER (STERILE) FOR INJECTION 10 ML IV SCH; +CHOL4PAC3 PO; +ENOXAPARIN 40 MG/0.4 ML (LOVENOX) SYR SC SCH; +GUAI400T62 PO; -GUAI400T83 PO; +HYDROcodone/APAP 7.5 MG/325 MG (LORTAB, LORCET PLUS) TABLET PO PRN; +MAGNESIUM SULFATE (CANCER CTR) 4 GM in NS (IVPB) CANCER CENTER 100 ML IV ONE; +MULTIVIT W/MINERALS TAB (THERAGRAN M) PO SCH; -OMEP40CA27 PO; +OMEP40CA6 PO; +ONDANSETRON 4 MG/2 ML (SDV) Z0FRAN IVP PRN; +SENNOSIDES 8.6 MG (SENOKOT) TAB PO SCH; -SULF1TAB35 PO; +SULF1TAB38 PO; +TEMAZEPAM 15 MG (RESTORIL) CAP PO PRN; +diphenhydrAMINE 50 MG/ML INJ (BENADRYL) IVP PRN; +morphine INJ 4 MG/ML 1 ML (VIAL/SYRINGE) IVP PRN
[2020-11-29 14:20] LABS: BASOPHILS % (AUTO) 1 % (0-10); EOSINOPHILS % (AUTO) 1 % (0-10); HEMATOCRIT 34 % (35-52); HEMOGLOBIN 10.5 g/dL (11.5-16.0); LYMPHOCYTES # (AUTO) 0.8 10^3/uL (1.0-4.0); LYMPHOCYTES % (AUTO) 36 % (12-44); MEAN CORPUSCULAR HEMOGLOBIN 30 pg (25-34); MEAN CORPUSCULAR HGB CONC 31 g/dL (32-36); MEAN CORPUSCULAR VOLUME 97 fL (80-99); MEAN PLATELET VOLUME 9.8 fL (9.0-12.2); MONOCYTES # (AUTO) 0.8 10^3/uL (0.0-1.0); MONOCYTES % (AUTO) 39 % (0-12); NEUTROPHILS # (AUTO) 0.4 10^3/uL (1.8-7.8); NEUTROPHILS % (AUTO) 21 % (42-75); PLATELET COUNT 207 10^3/uL (130-400); WHITE BLOOD COUNT 2.1 10^3/uL (4.3-11.0)
[2020-11-29 14:41] LABS: ALBUMIN 3.8 GM/DL (3.2-4.5); BILIRUBIN,TOTAL 0.9 MG/DL (0.1-1.0); CALCIUM 8.4 MG/DL (8.5-10.1); CREATININE SERUM 1.02 MG/DL (0.60-1.30); MAGNESIUM 1.2 MG/DL (1.6-2.4); POTASSIUM 4.2 MMOL/L (3.6-5.0); TOTAL PROTEIN 6.2 GM/DL (6.4-8.2)
== END 2020-12-03 | disposition home or self-care (01) ==
LOC: ONC 13:42
PROVIDERS: ATTEND Internal Medicine Hematology & Oncology
DX: Z51.11 Encounter for antineoplastic chemotherapy (principal); C91.10 Chronic lymphocytic leukemia of B-cell type not having achieved remission; F03.90 Unspecified dementia, unspecified severity, without behavioral disturbance, psychotic disturbance, mood disturbance, and anxiety; I12.9 Hypertensive chronic kidney disease with stage 1 through stage 4 chronic kidney disease, or unspecified chronic kidney disease; F41.9 Anxiety disorder, unspecified; I25.10 Atherosclerotic heart disease of native coronary artery without angina pectoris; E78.00 Pure hypercholesterolemia, unspecified; N18.30 Chronic kidney disease, stage 3 unspecified; K21.9 Gastro-esophageal reflux disease without esophagitis; E78.2 Mixed hyperlipidemia; M79.605 Pain in left leg; Z90.12 Acquired absence of left breast and nipple; Z85.3 Personal history of malignant neoplasm of breast; Z87.891 Personal history of nicotine dependence; Z79.899 Other long term (current) drug therapy; Z92.21 Personal history of antineoplastic chemotherapy
CPT/HCPCS: 93971; G0463; 80048; 80053; 82306; 83615; 83735; 85014; 85018; 85025; 96365; 99213

== ENCOUNTER 2021-01-24 14:25 | Outpatient (RCR) | payer MEDICARE ==
[2020-12-05 13:29] LABS: BASOPHILS % (AUTO) 1 % (0-10); EOSINOPHILS % (AUTO) 0 % (0-10); HEMATOCRIT 33 % (35-52); HEMOGLOBIN 10.4 g/dL (11.5-16.0); LYMPHOCYTES # (AUTO) 0.7 10^3/uL (1.0-4.0); LYMPHOCYTES % (AUTO) 20 % (12-44); MEAN CORPUSCULAR HEMOGLOBIN 30 pg (25-34); MEAN CORPUSCULAR HGB CONC 31 g/dL (32-36); MEAN CORPUSCULAR VOLUME 95 fL (80-99); MEAN PLATELET VOLUME 9.5 fL (9.0-12.2); MONOCYTES # (AUTO) 0.9 10^3/uL (0.0-1.0); MONOCYTES % (AUTO) 24 % (0-12); NEUTROPHILS % (AUTO) 53 % (42-75); PLATELET COUNT 200 10^3/uL (130-400); WHITE BLOOD COUNT 3.8 10^3/uL (4.3-11.0)
[2020-12-27 13:09] LABS: BASOPHILS % (AUTO) 1 % (0-10); EOSINOPHILS % (AUTO) 1 % (0-10); HEMATOCRIT 33 % (35-52); HEMOGLOBIN 10.4 g/dL (11.5-16.0); LYMPHOCYTES # (AUTO) 0.6 10^3/uL (1.0-4.0); LYMPHOCYTES % (AUTO) 46 % (12-44); MEAN CORPUSCULAR HEMOGLOBIN 29 pg (25-34); MEAN CORPUSCULAR HGB CONC 31 g/dL (32-36); MEAN CORPUSCULAR VOLUME 91 fL (80-99); MEAN PLATELET VOLUME 9.6 fL (9.0-12.2); MONOCYTES # (AUTO) 0.7 10^3/uL (0.0-1.0); MONOCYTES % (AUTO) 51 % (0-12); NEUTROPHILS % (AUTO) 2 % (42-75); PLATELET COUNT 246 10^3/uL (130-400)
[2020-12-27 13:12] LABS: WHITE BLOOD COUNT 1.3 10^3/uL (4.3-11.0)
[2020-12-27 13:30] LABS: ALBUMIN 3.8 GM/DL (3.2-4.5); CALCIUM 9.3 MG/DL (8.5-10.1); CREATININE SERUM 0.88 MG/DL (0.60-1.30); MAGNESIUM 1.7 MG/DL (1.6-2.4); POTASSIUM 4.5 MMOL/L (3.6-5.0); TOTAL PROTEIN 6.4 GM/DL (6.4-8.2)
[2021-01-03 13:15] LABS: BASOPHILS % (AUTO) 1 % (0-10); EOSINOPHILS % (AUTO) 1 % (0-10); HEMATOCRIT 35 % (35-52); HEMOGLOBIN 10.8 g/dL (11.5-16.0); LYMPHOCYTES % (AUTO) 39 % (12-44); MEAN CORPUSCULAR HEMOGLOBIN 28 pg (25-34); MEAN CORPUSCULAR HGB CONC 31 g/dL (32-36); MEAN CORPUSCULAR VOLUME 91 fL (80-99); MEAN PLATELET VOLUME 9.5 fL (9.0-12.2); MONOCYTES # (AUTO) 0.9 10^3/uL (0.0-1.0); MONOCYTES % (AUTO) 35 % (0-12); NEUTROPHILS # (AUTO) 0.6 10^3/uL (1.8-7.8); NEUTROPHILS % (AUTO) 24 % (42-75); PLATELET COUNT 265 10^3/uL (130-400); WHITE BLOOD COUNT 2.4 10^3/uL (4.3-11.0)
[2021-01-03 13:46] LABS: CALCIUM 9.4 MG/DL (8.5-10.1); CREATININE SERUM 0.97 MG/DL (0.60-1.30); POTASSIUM 4.4 MMOL/L (3.6-5.0)
[2021-01-15 13:30] LABS: BASOPHILS % (AUTO) 1 % (0-10); EOSINOPHILS # (AUTO) 0.1 10^3/uL (0.0-0.3); EOSINOPHILS % (AUTO) 1 % (0-10); HEMATOCRIT 35 % (35-52); HEMOGLOBIN 10.7 g/dL (11.5-16.0); LYMPHOCYTES # (AUTO) 1.3 10^3/uL (1.0-4.0); LYMPHOCYTES % (AUTO) 16 % (12-44); MEAN CORPUSCULAR HEMOGLOBIN 28 pg (25-34); MEAN CORPUSCULAR HGB CONC 30 g/dL (32-36); MEAN CORPUSCULAR VOLUME 91 fL (80-99); MEAN PLATELET VOLUME 9.1 fL (9.0-12.2); MONOCYTES % (AUTO) 12 % (0-12); NEUTROPHILS # (AUTO) 5.3 10^3/uL (1.8-7.8); NEUTROPHILS % (AUTO) 69 % (42-75); PLATELET COUNT 281 10^3/uL (130-400); WHITE BLOOD COUNT 7.7 10^3/uL (4.3-11.0)
[2021-01-15 13:52] LABS: CALCIUM 9.5 MG/DL (8.5-10.1); CREATININE SERUM 0.97 MG/DL (0.60-1.30); POTASSIUM 4.4 MMOL/L (3.6-5.0)
[~2021-01-24 14:25] MED LIST changes: -ACETAMINOPHEN 325 MG TABLET PO PRN; -CEFUROXIME INJECTION 750 MG in WATER (STERILE) FOR INJECTION 10 ML IV SCH; -ENOXAPARIN 40 MG/0.4 ML (LOVENOX) SYR SC SCH; -HYDROcodone/APAP 7.5 MG/325 MG (LORTAB, LORCET PLUS) TABLET PO PRN; -MAGNESIUM SULFATE (CANCER CTR) 4 GM in NS (IVPB) CANCER CENTER 100 ML IV ONE; -MULTIVIT W/MINERALS TAB (THERAGRAN M) PO SCH; -ONDANSETRON 4 MG/2 ML (SDV) Z0FRAN IVP PRN; -SENNOSIDES 8.6 MG (SENOKOT) TAB PO SCH; -TEMAZEPAM 15 MG (RESTORIL) CAP PO PRN; -diphenhydrAMINE 50 MG/ML INJ (BENADRYL) IVP PRN; -morphine INJ 4 MG/ML 1 ML (VIAL/SYRINGE) IVP PRN
[2021-01-24 14:50] LABS: BASOPHILS % (AUTO) 1 % (0-10); EOSINOPHILS # (AUTO) 0.1 10^3/uL (0.0-0.3); EOSINOPHILS % (AUTO) 2 % (0-10); HEMATOCRIT 33 % (35-52); HEMOGLOBIN 10.6 g/dL (11.5-16.0); LYMPHOCYTES # (AUTO) 1.2 X 10^3 (1.0-4.0); LYMPHOCYTES % (AUTO) 17 % (12-44); MEAN CORPUSCULAR HEMOGLOBIN 28 pg (25-34); MEAN CORPUSCULAR HGB CONC 32 g/dL (32-36); MEAN CORPUSCULAR VOLUME 88 fL (80-99); MEAN PLATELET VOLUME 9.2 fL (9.0-12.2); MONOCYTES # (AUTO) 0.9 X 10^3 (0.0-1.0); MONOCYTES % (AUTO) 12 % (0-12); NEUTROPHILS # (AUTO) 4.8 X 10^3 (1.8-7.8); NEUTROPHILS % (AUTO) 68 % (42-75); PLATELET COUNT 284 10^3/uL (130-400); WHITE BLOOD COUNT 7.1 10^3/uL (4.3-11.0)
[2021-01-24 15:01] LABS: ALBUMIN 4.1 GM/DL (3.2-4.5); CALCIUM 9.3 MG/DL (8.5-10.1); CREATININE SERUM 1.13 MG/DL (0.60-1.30); MAGNESIUM 1.4 MG/DL (1.6-2.4); POTASSIUM 4.4 MMOL/L (3.6-5.0); TOTAL PROTEIN 6.4 GM/DL (6.4-8.2)
== END 2021-03-05 | disposition home or self-care (01) ==
LOC: ONC 14:25
PROVIDERS: ATTEND Internal Medicine Hematology & Oncology
DX: C91.10 Chronic lymphocytic leukemia of B-cell type not having achieved remission (principal); F03.90 Unspecified dementia, unspecified severity, without behavioral disturbance, psychotic disturbance, mood disturbance, and anxiety; I12.9 Hypertensive chronic kidney disease with stage 1 through stage 4 chronic kidney disease, or unspecified chronic kidney disease; F41.9 Anxiety disorder, unspecified; I25.10 Atherosclerotic heart disease of native coronary artery without angina pectoris; E78.00 Pure hypercholesterolemia, unspecified; N18.30 Chronic kidney disease, stage 3 unspecified; K21.9 Gastro-esophageal reflux disease without esophagitis; E78.2 Mixed hyperlipidemia; Z90.12 Acquired absence of left breast and nipple; Z85.3 Personal history of malignant neoplasm of breast; Z87.891 Personal history of nicotine dependence; Z79.899 Other long term (current) drug therapy; Z92.21 Personal history of antineoplastic chemotherapy
CPT/HCPCS: 80048; 80053; 83615; 83735; 85025; 99213

== ENCOUNTER 2021-04-19 09:25 | Emergency (ER) | payer MEDICARE ==
[~2021-04-19] VITALS: Ht 167 cm; Wt 75.0 kg
[~2021-04-19 09:25] MED LIST changes: -GUAI100L36 PO; +GUAI100L56 PO; -MAGN400T8 PO; +MGX400T PO; +MONT-40 PO; -MONT10TA32 PO
--- NOTE | 2021-04-19 10:33 | ED Cough/URI ---
General Chief Complaint: Respiratory Problems Stated Complaint: SOA Nursing Triage Note: THE PT IS ASSISTED TO THE ROOM BY WHEELCHAIR. NO DISTRESS IS SEEN ON ARRIVAL. LOC IS NORMAL FOR THIS PT, WITH A LONG HX OF DEMENTIA. Source: family Exam Limitations: no limitations History of Present Illness Date Seen by Provider: Apr 19, 2021 Time Seen by Provider: 10:20 Initial Comments Patient is an 80-year-old female who presents to the emergency department with her today with a chief complaint of cough, decreased appetite, low oxygen saturations at her primary care doctor's office this morning. She was sent from Dr. Nevarez's office for reports of low oxygen. She does not wear ox ygen at home. She is a former smoker having quit 7 or 8 years ago. She has a history of pretty significant dementia, her takes care of her at home. He states over the last several days she has had decreasing appetite. She wants to sleep all the time. Her symptoms of persistent cough that appears "deep" have been going on for about 2 weeks. He is not sure if the cough is productive or not. No reported fevers. He states that she takes "a lot of medications". She denies any complaints of pain right now. She is on 2 L satting 100%. No respiratory distress is evident. All other review of systems reviewed and negative except as stated Timing/Duration: getting worse Severity/Quality: moderate Associated Symptoms: other (decreased apppetitie) Allergies and Home Medications Allergies Coded Allergies: No Known Drug Allergies (Verified , 05/03/16) Patient Home Medication List Home Medication List Reviewed: Yes Acyclovir (Acyclovir) 800 Mg Tablet, 800 MG PO BID, (Reported) Entered as Reported by: RISHABH NEAL on 09/05/20 1239 Aspirin (Aspirin EC) 81 Mg Tablet.dr, 81 MG PO DAILY, (Reported) Entered as Reported by: RISHABH NEAL on 09/05/20 1239 Atenolol (Atenolol) 25 Mg Tablet, 25 MG PO DAILY, (Reported) Entered as Reported by: RISHABH NEAL on 04/15/19 0743 Atorvastatin Calcium (Atorvastatin Calcium) 40 Mg Tablet, 40 MG PO HS, (Reported) Entered as Reported by: RISHABH NEAL on 04/15/19 0743 Calcium Carbonate (Calcium) 600 Mg Tablet, 600 MG PO DAILY, (Reported) Entered as Reported by: RISHABH NEAL on 09/05/20 1239 Cholestyramine/Aspartame (Prevalite Packet) 4 Gm Powd.pack, 4 GM PO BID PRN for DIARRHEA Prescribed by: EDWIGE SRINIVASAN on 09/17/20 0940 Citalopram Hydrobromide (Citalopram HBr) 20 Mg Tablet, 20 MG PO HS, (Reported) Entered as Reported by: RISHABH NEAL on 09/05/20 1239 Donepezil HCl (Donepezil HCl) 10 Mg Tablet, 10 MG PO DAILY, (Reported) Entered as Reported by: RISHABH NEAL on 04/15/19 0743 Fexofenadine HCl (Fexofenadine HCl) 180 Mg Tablet, 180 MG PO DAILY, (Reported) Entered as Reported by: RISHABH NEAL on 09/05/20 123 Fluticasone/Salmeterol (Advair 250-50 Diskus) 1 Each Blst.w.dev, 1 EACH IH BID, (Reported) Entered as Reported by: RISHABH NEAL on 09/05/20 1239 Hydrocodone/Acetaminophen (Hydrocodone-Acetamin 5-325 mg) 1 Each Tablet, 1 EA PO Q6H PRN for PAIN-MODERATE (5-7) Prescribed by: EDWIGE SRINIVASAN on 09/17/20 0940 Lipase/Protease/Amylase (Zenpep Dr 40,000 Units Capsule) 1 Each Capsule.dr, 1 EA PO 5XD- BEFORE MEALS AND SNACKS, (Reported) Entered as Reported by: RISHABH NEAL on 09/05/20 1239 Magnesium Oxide (Magnesium) 400 Mg Tablet, 400 MG PO DAILY, (Reported) Entered as Reported by: RISHABH NEAL on 09/05/20 1239 Montelukast Sodium (Montelukast Sodium) 10 Mg Tablet, 10 MG PO HS, (Reported) Entered as Reported by: RISHABH NEAL on 09/05/20 1239 [place] 3 Polyunsat Fatty Acids (Fish Oil 1,000 mg Capsule) 1,000 Mg Cap, 1,000 MG PO DAILY, (Reported) Entered as Reported by: RISHABH NEAL on 09/05/20 123 Pantoprazole Sodium (Pantoprazole Sodium) 40 Mg Tablet.dr, 40 MG PO DAILY, (Reported) Entered as Reported by: RISHABH NEAL on 09/05/20 1239 Potassium Gluconate (Potassium Gluconate 595 MG) 99 Mg Tablet, 99 MG PO DAILY, (Reported) Entered as Reported by: RISHABH NEAL on 09/05/20 1239 Propylene Glycol/Peg 400 (Systane Gel Eye Drops) 10 Ml Drops.gel, 1-2 DROPS OP HS, (Reported) Entered as Reported by: LUC CHEEMA on 09/05/20 1747 Rivaroxaban (Xarelto) 20 Mg Tablet, 20 MG PO HS, (Reported) Entered as Reported by: RISHABH NEAL on 09/05/20 1239 Sulfamethoxazole/Trimethoprim (Bactrim Ds Tablet) 1 Each Tablet, 1 EA PO BID ON MON & FRI, (Reported) Entered as Reported by: RISHABH NEAL on 09/05/20 123 Venetoclax (Venclexta) 100 Mg Tablet, 200 MG PO DAILY, (Reported) Entered as Reported by: RISHABH NEAL on 09/05/20 1239 Review of Systems Review of Systems Constitutional: see HPI EENTM: no symptoms reported Respiratory: cough Cardiovascular: no symptoms reported Gastrointestinal: diarrhea (chronic), loss of appetite Genitourinary: no symptoms reported : No Musculoskeletal: no symptoms reported Skin: no symptoms reported Psychiatric/Neurological: Other (chronic dementia) All Other Systems Reviewed Negative Unless Noted: Yes Past Idycszt-Olmsin-Tzhowq Hx Immunizations Up To Date Tetanus Booster (TDap): More than 5yrs Seasonal Allergies Seasonal Allergies: Yes Past Medical History Surgeries: Yes (LEFT BREAST/COLONOSCOPY-POLYP REMVED, PREV CEA) Breast, Coronary Stent, Orthopedic, Tonsillectomy, Vascular Surgery Respiratory: Yes Pneumonia, Sleep Apnea Currently Using CPAP: Yes Currently Using BIPAP: No Cardiac: Yes Coronary Artery Disease, Hypertension, Peripheral Vascular Neurological: Yes Dementia Reproductive Disorders: No Female Reproductive Disorders: Denies Sexually Transmitted Disease: No Genitourinary: No Gastrointestinal: Yes (DIARRHEA (NERVOUS BOWEL)) Gastroesophageal Reflux Musculoskeletal: Yes (ARTHRITIS KNEE'S) Arthritis Endocrine: No HEENT: Yes Cataract Loss of Vision: Bilateral Hearing Impairment: Hard of Hearing Cancer: Yes Leukemia, Breast Psychosocial: Yes Anxiety, Depression Integumentary: No Blood Disorders: No Adverse Reaction/Blood Tranf: No Family Medical History FHx: gastric ulcer 19 FATHER Stroke or transient ischemic attack in mother Noncontributory Physical Exam Vital Signs - First Documented 04/19/21 10:20 Temp 36.4 Pulse 60 Resp 18 B/P (MAP) 143/63 (89) Capillary Refill : Less Than 3 Seconds Height: 5'3.00" Weight: 197lbs. 0.0oz. 89.296463kl; 26.00 BMI Method:Estimated General Appearance: WD/WN, no apparent distress HEENT: PERRL/EOMI, other (Mild edema noted to her top lip, no intraoral swelling is noted. She does have dentures in place. Oral mucosa is dry) Neck: supple Respiratory: lungs clear, normal breath sounds, no respiratory distress, no accessory muscle use, other (No respiratory distress is noted, oxygen saturati ons on 2 L are 99%.) Cardiovascular: regular rate, rhythm Gastrointestinal: normal bowel sounds, non tender, soft Extremities: non-tender, normal inspection, no pedal edema Neurologic/Psychiatric: alert, normal mood/affect Skin: normal color, warm/dry Focused Exam Lactate Level 04/19/21 10:55: Lactic Acid Level 1.33 Lactic Acid Level Laboratory Tests Test 04/19/21 10:55 Lactic Acid Level 1.33 MMOL/L (0.50-2.00) Progress/Results/Core Measures Suspected Sepsis SIRS Temperature: Pulse: 60 Respiratory Rate: 18 Laboratory Tests 04/19/21 10:00: White Blood Count 9.5 Blood Pressure 143 /63 Mean: 89 04/19/21 10:55: Lactic Acid Level 1.33 Laboratory Tests 04/19/21 10:00: Creatinine 1.37H, Platelet Count 298, Total Bilirubin 0.9 Results/Orders Lab Results Laboratory Tests Test 04/19/21 10:00 04/19/21 10:25 04/19/21 10:55 Range/Units White Blood Count 9.5 4.3-11.0 10^3/uL Red Blood Count 4.13 3.80-5.11 10^6/uL Hemoglobin 11.2 L 11.5-16.0 g/dL Hematocrit 35 35-52 % Mean Corpuscular Volume 86 80-99 fL Mean Corpuscular Hemoglobin 27 25-34 pg Mean Corpuscular Hemoglobin Concent 32 32-36 g/dL Red Cell Distribution Width 16.1 H 10.0-14.5 % Platelet Count 298 130-400 10^3/uL Mean Platelet Volume 10.8 9.0-12.2 fL Immature Granulocyte % (Auto) 1 % Neutrophils (%) (Auto) 77 H 42-75 % Lymphocytes (%) (Auto) 7 L 12-44 % Monocytes (%) (Auto) 14 H 0-12 % Eosinophils (%) (Auto) 1 0-10 % Basophils (%) (Auto) 0 0-10 % Neutrophils # (Auto) 7.3 1.8-7.8 10^3/uL Lymphocytes # (Auto) 0.7 L 1.0-4.0 10^3/uL Monocytes # (Auto) 1.3 H 0.0-1.0 10^3/uL Eosinophils # (Auto) 0.1 0.0-0.3 10^3/uL Basophils # (Auto) 0.0 0.0-0.1 10^3/uL Immature Granulocyte # (Auto) 0.1 0.0-0.1 10^3/uL Urine Color YELLOW Urine Clarity SL CLOUDY Urine pH 6.0 5-9 Urine Specific [place] 1.020 1.016-1.022 Urine Protein 1+ H NEGATIVE Urine Glucose (UA) NEGATIVE NEGATIVE Urine Ketones TRACE H NEGATIVE Urine Nitrite NEGATIVE NEGATIVE Urine Bilirubin 2+ H NEGATIVE Urine Urobilinogen 1.0 < = 1.0 MG/DL Urine Leukocyte Esterase NEGATIVE NEGATIVE Urine RBC (Auto) NEGATIVE NEGATIVE Urine RBC NONE /HPF Urine WBC 0-2 /HPF Urine Crystals NONE /LPF Urine Bacteria TRACE /HPF Urine Casts PRESENT /LPF Urine Hyaline Casts 10-25 H /LPF Urine Mucus SMALL H /LPF Urine Culture Indicated NO Sodium Level 139 135-145 MMOL/L Potassium Level 3.9 3.6-5.0 MMOL/L Chloride Level 101 98-107 MMOL/L Carbon Dioxide Level 22 21-32 MMOL/L Anion Gap 16 H 5-14 MMOL/L Blood Urea Nitrogen 24 H 7-18 MG/DL Creatinine 1.37 H 0.60-1.30 MG/DL Estimat Glomerular Filtration Rate 37 BUN/Creatinine Ratio 18 Glucose Level 114 H 70-105 MG/DL Calcium Level 9.7 8.5-10.1 MG/DL Corrected Calcium 9.8 8.5-10.1 MG/DL Total Bilirubin 0.9 0.1-1.0 MG/DL Aspartate Amino Transf (AST/SGOT) 26 5-34 U/L Alanine Aminotransferase (ALT/SGPT) 14 0-55 U/L Alkaline Phosphatase 79 40-136 U/L Total Protein 7.2 6.4-8.2 GM/DL Albumin 3.9 3.2-4.5 GM/DL Influenza Type A (RT-PCR) Not Detected Not Detecte Influenza Type B (RT-PCR) Not Detected Not Detecte SARS-CoV-2 RNA (RT-PCR) Not Detected Not Detecte Lactic Acid Level 1.33 0.50-2.00 MMOL/L My Orders Orders - CLAUDIA VALENCIA MD Cbc With Automated Diff (04/19/21:) Comprehensive Metabolic Panel (04/19/21:) Blood Culture (04/19/21:) Sputum Culture (04/19/21:) Urinalysis (04/19/21:) Urine Culture (04/19/21:) Protime With Inr (04/19/21:) Partial Thromboplastin Time (04/19/21:) Chest 1 View, Ap/Pa Only (04/19/21:) Ed Iv/Invasive Line Start (04/19/21:) Ed Iv/Invasive Line Start (04/19/21 10:) Vital Signs Adult Sepsis Patie Q15M (04/19/21 10:29) O2 (04/19/21:) Remove Rings In Anticipation O (04/19/21:) Lactic Acid Analyzer (04/19/21:) Influenza A And B By Pcr (04/19/21:) Covid 19 Inhouse Test (04/19/21 10:) Ns Iv 1000 Ml (Sodium Chloride 0.9%) (04/19/21 11:30) Vital Signs/I&O 04/19/21 10:20 Temp 36.4 Pulse 60 Resp 18 B/P (MAP) 143/63 (89) Capillary Refill : Less Than 3 Seconds Blood Pressure Mean: 89 Progress Note : Time: 12:13 Progress Note Patient reassessed, sleeping comfortably. Labs have been reviewed, all within normal limits, no findings concerning for sepsis. I did turn the patient's oxygen off, she sitting about 93% sleeping, no respiratory distress noted. I advised the that she had no clinical or objective findings to warrant further studies from the emergency department at this time. No evidence that would suggest the need for admission. He did mention that she has been "hallucinating" a little bit more than usual. I do not find any occult infection source that would potentiate this or cause this. I told him we would add some Tessalon Perles for her cough in addition to the Robitussin he has been giving her at home. He is comfortable with this plan of care and is appreciative. All questions are sought and answered. Diagnostic Imaging Diagonstic Imaging: Xray Plain Films/CT/US/NM/MRI: chest Comments [facility] [place], [place] NAME: RADHA NOVOA [facility] REC#: [id number] PT STATUS: REG ER : 1940 PHYSICIAN: CLAUDIA VALENCIA MD ADMIT DATE: 04/19/21/ER Draft Date of Exam:04/19/21 CHEST 1 VIEW, AP/PA ONLY INDICATION: Low oxygen and cough. TIME OF EXAM: 10:47 a.m. COMPARISON: Correlation is made with prior chest of 09/04/2020. FINDINGS: Heart size is stable. Lungs are clear. The pulmonary vascularity is normal. No infiltrates, effusion or pneumothorax is detected. IMPRESSION: No acute cardiopulmonary process is detected. Dictated on workstation # [id number] Dict: 04/19/21 1051 Trans: 04/19/21 1055 [id number] Interpreted by: RANDY DANIEL MD Electronically signed by: Departure Impression Primary Impression: Viral syndrome Disposition: 01 HOME, SELF-CARE Condition: Stable Departure-Patient Inst. Decision time for Depature: 12:15 Referrals: CLIVE NEVAREZ MD (PCP/Family) Primary Care Physician Patient Instructions: Viral Syndrome (DC) Add. Discharge Instructions: Use the Tessalon Perles every 8 hours as needed for cough in addition to kyqf-xgw-pwwalyc Robitussin every 6 hours. Continue her daily prescribed medications. Follow-up with Dr. Nevarez's office next week. Return to the emergency room if she develops fever, worsening shortness of breath, any other emergent concerning symptoms. Scripts Benzonatate (TESSALON PERLES) 100 Mg Capsule 100 MG PO Q8H PRN for cough, #30 CAP Prov: CLAUDIA VALENCIA MD 04/19/21 Copy Copies To 1: CLIVE NEVAREZ MD, KATHRYN M MD Apr 19, 2021 10:33
[2021-04-19 10:40] LABS: BASOPHILS % (AUTO) 0 % (0-10); EOSINOPHILS # (AUTO) 0.1 10^3/uL (0.0-0.3); EOSINOPHILS % (AUTO) 1 % (0-10); HEMATOCRIT 35 % (35-52); HEMOGLOBIN 11.2 g/dL (11.5-16.0); LYMPHOCYTES # (AUTO) 0.7 10^3/uL (1.0-4.0); LYMPHOCYTES % (AUTO) 7 % (12-44); MEAN CORPUSCULAR HEMOGLOBIN 27 pg (25-34); MEAN CORPUSCULAR HGB CONC 32 g/dL (32-36); MEAN CORPUSCULAR VOLUME 86 fL (80-99); MEAN PLATELET VOLUME 10.8 fL (9.0-12.2); MONOCYTES # (AUTO) 1.3 10^3/uL (0.0-1.0); MONOCYTES % (AUTO) 14 % (0-12); NEUTROPHILS # (AUTO) 7.3 10^3/uL (1.8-7.8); NEUTROPHILS % (AUTO) 77 % (42-75); PLATELET COUNT 298 10^3/uL (130-400); WHITE BLOOD COUNT 9.5 10^3/uL (4.3-11.0)
[2021-04-19 10:41] LABS: CLARITY,URINE SL CLOUDY; COLOR,URINE YELLOW; GLUCOSE, URINE (UA) NEGATIVE (NEGATIVE); KETONES,URINE TRACE (NEGATIVE); LEUKOCYTE ESTERASE ,URINE NEGATIVE (NEGATIVE); NITRITE,URINE NEGATIVE (NEGATIVE); PROTEIN,URINE 1+ (NEGATIVE)
[2021-04-19 10:44] LABS: ALBUMIN 3.9 GM/DL (3.2-4.5); POTASSIUM 3.9 MMOL/L (3.6-5.0)
[2021-04-19 10:45] LABS: CALCIUM 9.7 MG/DL (8.5-10.1)
[2021-04-19 10:47] LABS: TOTAL PROTEIN 7.2 GM/DL (6.4-8.2)
[2021-04-19 10:48] LABS: BILIRUBIN,TOTAL 0.9 MG/DL (0.1-1.0)
[2021-04-19 10:50] LABS: CREATININE SERUM 1.37 MG/DL (0.60-1.30)
--- NOTE | 2021-04-19 10:55 | Diagnostic Imaging Report ---
INDICATION: Low oxygen and cough. TIME OF EXAM: 10:47 a.m. COMPARISON: Correlation is made with prior chest of 09/04/2020. FINDINGS: Heart size is stable. Lungs are clear. The pulmonary vascularity is normal. No infiltrates, effusion or pneumothorax is detected. IMPRESSION: No acute cardiopulmonary process is detected. Dictated by: Dictated on workstation # [id number]
[2021-04-19 11:00] LABS: BACTERIA,URINE TRACE /HPF; BILIRUBIN,URINE 2+ (NEGATIVE); WBC,URINE 0-2 /HPF
[2021-04-19] MEDS ORDERED: NS IV 1000 ML 1,000 ML IV SCH (11:30)
[2021-04-19] MEDS ORDERED: BENZ100C18 PO (12:16)
[2021-04-19 12:34] VITALS: BP 140/60
== END 2021-04-19 12:38 | disposition home or self-care (01) ==
LOC: EDUNIT# 09:25 → ER 09:27
DX: B34.9 Viral infection, unspecified (principal); G47.30 Sleep apnea, unspecified; I10 Essential (primary) hypertension; F03.90 Unspecified dementia, unspecified severity, without behavioral disturbance, psychotic disturbance, mood disturbance, and anxiety; K21.9 Gastro-esophageal reflux disease without esophagitis; F41.9 Anxiety disorder, unspecified; F32.9 Major depressive disorder, single episode, unspecified; I25.10 Atherosclerotic heart disease of native coronary artery without angina pectoris; Z20.822 Contact with and (suspected) exposure to COVID-19; Z87.891 Personal history of nicotine dependence; Z79.01 Long term (current) use of anticoagulants; Z79.82 Long term (current) use of aspirin; Z79.899 Other long term (current) drug therapy
CPT/HCPCS: 36415; 71045; 80053; 81000; 83605; 85025; 87040; 87088; 87636

== ENCOUNTER 2021-05-02 12:48 | Outpatient (RCR) | payer MEDICARE ==
[2021-03-07 14:41] LABS: BASOPHILS % (AUTO) 1 % (0-10); EOSINOPHILS # (AUTO) 0.1 10^3/uL (0.0-0.3); EOSINOPHILS % (AUTO) 2 % (0-10); HEMATOCRIT 35 % (35-52); HEMOGLOBIN 10.9 g/dL (11.5-16.0); LYMPHOCYTES # (AUTO) 0.9 10^3/uL (1.0-4.0); LYMPHOCYTES % (AUTO) 14 % (12-44); MEAN CORPUSCULAR HEMOGLOBIN 27 pg (25-34); MEAN CORPUSCULAR HGB CONC 31 g/dL (32-36); MEAN CORPUSCULAR VOLUME 88 fL (80-99); MONOCYTES # (AUTO) 0.8 10^3/uL (0.0-1.0); MONOCYTES % (AUTO) 12 % (0-12); NEUTROPHILS # (AUTO) 4.6 10^3/uL (1.8-7.8); NEUTROPHILS % (AUTO) 71 % (42-75); PLATELET COUNT 254 10^3/uL (130-400); WHITE BLOOD COUNT 6.5 10^3/uL (4.3-11.0)
[2021-03-07 15:07] LABS: BILIRUBIN,TOTAL 1.3 MG/DL (0.1-1.0); CALCIUM 9.1 MG/DL (8.5-10.1); CREATININE SERUM 0.97 MG/DL (0.60-1.30); MAGNESIUM 1.6 MG/DL (1.6-2.4); POTASSIUM 3.9 MMOL/L (3.6-5.0); TOTAL PROTEIN 6.4 GM/DL (6.4-8.2)
[~2021-05-02 12:48] MED LIST changes: +BENZ100C18 PO
[2021-05-02 13:12] LABS: BASOPHILS % (AUTO) 1 % (0-10); EOSINOPHILS # (AUTO) 0.1 10^3/uL (0.0-0.3); EOSINOPHILS % (AUTO) 2 % (0-10); HEMATOCRIT 34 % (35-52); HEMOGLOBIN 10.6 g/dL (11.5-16.0); LYMPHOCYTES % (AUTO) 19 % (12-44); MEAN CORPUSCULAR HEMOGLOBIN 27 pg (25-34); MEAN CORPUSCULAR HGB CONC 32 g/dL (32-36); MEAN CORPUSCULAR VOLUME 85 fL (80-99); MEAN PLATELET VOLUME 9.5 fL (9.0-12.2); MONOCYTES # (AUTO) 0.6 10^3/uL (0.0-1.0); MONOCYTES % (AUTO) 11 % (0-12); NEUTROPHILS # (AUTO) 3.6 10^3/uL (1.8-7.8); NEUTROPHILS % (AUTO) 67 % (42-75); PLATELET COUNT 284 10^3/uL (130-400); WHITE BLOOD COUNT 5.4 10^3/uL (4.3-11.0)
[2021-05-02 13:34] LABS: ALBUMIN 3.6 GM/DL (3.2-4.5); BILIRUBIN,TOTAL 0.7 MG/DL (0.1-1.0); CREATININE SERUM 1.05 MG/DL (0.60-1.30); POTASSIUM 4.4 MMOL/L (3.6-5.0); TOTAL PROTEIN 6.4 GM/DL (6.4-8.2)
== END 2021-05-10 | disposition home or self-care (01) ==
LOC: ONC 12:48
PROVIDERS: ATTEND Internal Medicine Hematology & Oncology
DX: C91.10 Chronic lymphocytic leukemia of B-cell type not having achieved remission (principal); F03.90 Unspecified dementia, unspecified severity, without behavioral disturbance, psychotic disturbance, mood disturbance, and anxiety; I12.9 Hypertensive chronic kidney disease with stage 1 through stage 4 chronic kidney disease, or unspecified chronic kidney disease; F41.9 Anxiety disorder, unspecified; I25.10 Atherosclerotic heart disease of native coronary artery without angina pectoris; E78.00 Pure hypercholesterolemia, unspecified; N18.30 Chronic kidney disease, stage 3 unspecified; K21.9 Gastro-esophageal reflux disease without esophagitis; E78.2 Mixed hyperlipidemia; Z90.12 Acquired absence of left breast and nipple; Z85.3 Personal history of malignant neoplasm of breast; Z87.891 Personal history of nicotine dependence; Z79.899 Other long term (current) drug therapy; Z92.21 Personal history of antineoplastic chemotherapy
CPT/HCPCS: 80053; 83615; 83735; 85025; G0463; 99213

== ENCOUNTER 2021-06-06 05:36 | Outpatient (CLI) | payer MEDICARE ==
[~2021-06-06] VITALS: Ht 160 cm; Wt 76.8 kg
== END 2021-06-09 07:40 | disposition home or self-care (01) ==
LOC: PREOP 05:36
PROVIDERS: ATTEND Surgery
DX: Z01.818 Encounter for other preprocedural examination (principal)

== ENCOUNTER → 2021-07-31 | Outpatient (CLI) | payer MEDICARE ==
[~2021-07-31] MED LIST changes: +CATHETER FLUSH 10 ML SYR IVP PRN; +FLUC100T10 PO; -FLUC100T6 PO; +REGADENOSON 0.4 MG/5 ML SYR (LEXISCAN) IV ONE
[2021-07-31 13:07] VITALS: BP 184/93
--- NOTE | 2021-07-31 15:43 | Cardiology Stress Test Report ---
Stress Test Report Date of Procedure/Referring: Date of Procedure: Jul 31, 2021 PCP Lluvia Hollins MD Admitting Physician Elver Carmona MD Indications: HTN Baseline Heart Rate: 54 Baseline Blood Pressure: Blood Pressure Systolic: 184 Blood Pressure Diastolic: 93 Baseline Vitals Vital Signs Date Time Temp Pulse Resp B/P (MAP) Pulse Ox O2 Delivery O2 Flow Rate FiO2 07/31/21 13:07 54 184/93 (123) Baseline EKG: Baseline EKG: NSR Summary After explaining the procedure to the patient, she signed a consent and then brought to the stress nuclear laboratory. Patient received 0.4 mg Lexiscan for stress test, ECG, heart rate and blood pressure were monitored continuously. Resting and stress dose of radio tracer were injected, imaging was acquired and reviewed in short axis, horizontal long axis and vertical long axis views. TID: 1.02 SSS: 15 SDS: 9 EF: 45 1. Patient tolerated Lexiscan well 2. Baseline poor R wave progression with left bundle branch block that did not change during test 3. Reversible ischemia involving the whole inferior wall inferolateral wall and inferoseptum 4. Normal left ventricular size with hypokinesia of the inferior wall, EF 45% LLUVIA HOLLINS MD Jul 31, 2021 15:43
== END ==
LOC: CARD 10:30
PROVIDERS: ATTEND Internal Medicine Cardiovascular Disease
DX: I11.9 Hypertensive heart disease without heart failure (principal); I08.0 Rheumatic disorders of both mitral and aortic valves
CPT/HCPCS: 78452; 93017; 93306; A9502

== ENCOUNTER → 2021-08-08 | Outpatient (RCR) | payer MEDICARE ==
[~2021-08-08] MED LIST changes: +ALPR0.254 PO; +AMLO2.5T4 PO; -CATHETER FLUSH 10 ML SYR IVP PRN; +CETI10TA17 PO; +CITA40TA13 PO; +FEXO-249 PO; -FEXO-46 PO; -REGADENOSON 0.4 MG/5 ML SYR (LEXISCAN) IV ONE
== END | disposition home or self-care (01) ==
PROVIDERS: ATTEND Surgery
DX: R26.89 Other abnormalities of gait and mobility (principal)

== ENCOUNTER 2021-08-14 13:00 | Day surgery (SDC) | payer MEDICARE ==
[2021-08-14] VITALS (12 sets, daily range): BP systolic 135–180; BP diastolic 53–81
[~2021-08-14] VITALS: Ht 160 cm; Wt 79.8 kg
--- NOTE | 2021-08-14 11:36 | Diagnostic Imaging Report ---
INDICATION: Abnormal stress test. TIME OF EXAM: 11:27 AM. COMPARISON: Correlation is made with the prior chest from 04/19/2021. FINDINGS: The heart is mildly enlarged but stable. The lungs are clear. No infiltrates are seen. There is no effusion or pneumothorax. IMPRESSION: No acute cardiopulmonary process is detected. Dictated by: Dictated on workstation # [id number]
[2021-08-14 11:44] LABS: HEMATOCRIT 35 % (35-52); HEMOGLOBIN 10.6 g/dL (11.5-16.0); MEAN CORPUSCULAR HEMOGLOBIN 25 pg (25-34); MEAN CORPUSCULAR HGB CONC 31 g/dL (32-36); MEAN CORPUSCULAR VOLUME 82 fL (80-99); PLATELET COUNT 227 10^3/uL (130-400); WHITE BLOOD COUNT 5.5 10^3/uL (4.3-11.0)
[2021-08-14 12:05] LABS: INR 0.9 (0.8-1.4); PROTHROMBIN TIME PATIENT 12.9 SEC (12.2-14.7)
[2021-08-14 12:27] LABS: ALBUMIN 3.6 GM/DL (3.2-4.5); BILIRUBIN,TOTAL 0.7 MG/DL (0.1-1.0); CALCIUM 8.3 MG/DL (8.5-10.1); CREATININE SERUM 1.07 MG/DL (0.60-1.30)
[~2021-08-14 13:00] MED LIST changes: +ADENOSINE 90 MG/30 ML (ADENOSCAN) VIAL IV ONE; +HEParin (CATH LAB) 2,000 ML IV ONE; +HEParin 1000 UNIT/ML (10ML VIAL) FOR BOLUS ONE; +LIDOCAINE 1% INJ 50 ML (XYLOCAINE) VIAL ONE; +MIDAZOLAM 5 MG/5 ML (VERSED) VIAL ONE; +NITRO DRIP 25000 MCG/D5W 250 ML IV ONE; +NS IV 1000 ML 1,000 ML IV SCH; +NS IV 1000 ML 1,000 ML ONE; +VERAPAMIL 5 MG/2 ML (CALAN) VIAL IV ONE; +fentaNYL INJ 100 MCG/2 ML AMP ONE
--- NOTE | 2021-08-14 13:21 | Conscious Sedation/ASA ---
Conscious Sedation Pre-Proced Time 13:21 ASA Score 3 For ASA 3 and 4: Consider anesthesia and medical clearance. Also, for patients with a history of failed moderate sedation consider anesthesia. Airway Lungs Heart ASA score ASA 1: a normal healthy patient ASA 2: a patient with a mild systemic disease (mid diabetes, controlled hypertension, obesity x ASA 3: a patient with a severe systemic disease that limits activity (angina, COPD, prior Myocardial infarction) ASA 4: a patient with an incapacitating disease that is a constant threat to life (CHF, renal failure) ASA 5: a moribund patient not expected to survive 24 hrs. (ruptured aneurysm) ASA 6: a declared brain- patient whose organs are being harvested. For emergent operations, add the letter E after the classification Mallampati Classification Grade 3 Sedation Plan Analgesia, Amnesia, Plan communicated to team members, Discussed options with patient/fam, Discussed risks with patient/fam The patient is an appropriate candidate to undergo the planned procedure, sedation, and anesthesia. The patient immediately re-assessed prior to indication. LLUVIA GARDUNO MD Aug 14, 2021 13:21
--- NOTE | 2021-08-14 13:23 | Discharge Inst-Post CATH ---
Discharge Inst-CATH/EP Problems Reviewed?: Yes Post Cardiac Cath/EP D/C Inst Follow Up/Plan Appointment with Dr. Hollins's office in 2 to 4 weeks <b>CARDIAC CATH/EP PROCEDURE DISCHARGE INSTRUCTIONS</b> ACTIVITY * Go Home directly and rest. * Limit activity of the leg (or wrist if it was used) for 7 days including aer obics, swimming, jogging, bicycling, etc. * Restrict stair-climbing for 7 days if possible, if not, climb up with your non-cath leg, then bring together on the same step. * Avoid lifting, pushing, pulling or excessive movement of the affected extremi ty for 7 days. * Customary sexual activity may be resumed after 2 days-use caution not to use a position that strains or causes pain to the affected extremity. * No driving for 24 hours. * NO SMOKING. * Avoid straining for bowel movements for 7 days. * Gentle walking on level ground is allowed. * Returning to work will depend on the type of procedure and the results. Your doctor will discuss this with you. CALL YOUR DOCTOR FOR ANY OF THE FOLLOWING: *If bleeding from the puncture site occurs- Apply gentle pressure to site with clean cloth and call your doctor or EMS. * If a knot or lump forms under the skin, increases in size, or causes pain. * If bruising appears to be worsening or moving further down your leg instead of disappearing. * Temperature above 101 F. CARE OF YOUR GROIN INCISION; * Bruising or purple discoloration of the skin near the puncture site is common. * You may shower only, no bathtub bathing for 5 days. Be careful to avoid slipping as your leg may feel stiff. * If a closure device was used on your femoral artery, please see the attached guide regarding care of the device and your leg. * Leave dressing on FOR 24 hours. CARE OF YOUR WRIST INCISION; * Bruising or purple discoloration of the skin near the puncture site is common. * You may shower. * DO NOT submerge wrist. * Leave dressing on FOR 24 hours. LLUVIA HOLLINS MD Aug 14, 2021 13:23
--- NOTE | 2021-08-14 13:27 | Cardiac Cath Report ---
Cardiac Cath Report Physician (s)/Professor Of Business Administration (s) Physician LLUVIA GARDUNO MD Pre-Procedure Diagnosis Pre-Procedure Diagnosis: Coronary artery disease Post-Procedure Note Procedure Start Date: Aug 14, 2021 Name of Procedure: Left heart catheterization Findings/Procedure Note PROCEDURE NOTE: 80 years old lady with history of coronary artery disease, stent to the LAD, had an abnormal stress test, scheduled for cardiac catheterization possible PTCA. After explaining the procedure to the patient, all pros and cons were explained, all questions were answered. The patient signed the consent and then she was placed on the cardiac catheterization laboratory. Groin was prepped SL fashion local anesthesia was used. Sheath placed in the right radial artery, [place] catheter was advanced to the left ventricular cavity, pressure was measured, pullback LV to aorta was done, engaged the left and right coronary system, multiple views were obtained. Patient has been borderline lesion in the mid LAD beyond the old stent. I tried multiple different guides I was successful with [place] 4.0 guide and advanced PressureWire across the lesion, FFR was 0.91. Received adenosine infusion over 2 minutes. The lowest FFR was 0.87. Angiogram showed no complication At the end of the procedure the sheath was removed. Vascular band was used FINDINGS: Hemodynamics LV 141/20, end-diastolic pressure of 20 Aorta 135/64 mean of 90 ANATOMY: Left Main is free of obstructive disease Left Anterior Descending has patent stent proximally followed by moderate stenosis, FFR is 0.87 after adenosine injection, nonobstructive lesion Left Circumflex is large dominant artery with mild to moderate disease nonobstructive disease Right Coronary Artery is small none dominant artery with mild disease LV Gram was not done, pressure was measured CONCLUSION: 1. Patent stent in the proximal LAD, moderate lesion at the mid LAD FFR 0.87 after adenosine injection, nonobstructive lesion. 2. Large dominant circumflex artery with mild to moderate disease nonobstructive disease, small nondominant right coronary artery 3. Mildly elevated left ventricular end-diastolic pressure DISCUSSION AND RECOMMENDATION: Medical therapy is recommended no intervention is needed Anesthesia Type: Conscious Sedation Estimated blood loss (mL): 25 ml Contrast Amount: 70 ml Total Radiation Dose: 456 mGy Post-Procedure Diagnosis Post-operative diagnosis: Chest pain Coronary artery disease Hypertension Hyperlipidemia LLUVIA GARDUNO MD Aug 14, 2021 13:27
[2021-08-14] MEDS ORDERED: NS IV 1000 ML 1,000 ML IV SCH (13:30)
== END 2021-08-14 17:30 ==
LOC: CATH 13:00 → SDC 13:48 → CATH 17:30
PROVIDERS: ATTEND Internal Medicine Cardiovascular Disease
DX: I25.10 Atherosclerotic heart disease of native coronary artery without angina pectoris (principal); I44.7 Left bundle-branch block, unspecified; I25.89 Other forms of chronic ischemic heart disease; I65.23 Occlusion and stenosis of bilateral carotid arteries; I12.9 Hypertensive chronic kidney disease with stage 1 through stage 4 chronic kidney disease, or unspecified chronic kidney disease; J44.9 Chronic obstructive pulmonary disease, unspecified; N18.9 Chronic kidney disease, unspecified; K21.9 Gastro-esophageal reflux disease without esophagitis; E78.00 Pure hypercholesterolemia, unspecified; E78.2 Mixed hyperlipidemia; Z79.82 Long term (current) use of aspirin; Z85.3 Personal history of malignant neoplasm of breast; Z79.899 Other long term (current) drug therapy; Z79.891 Long term (current) use of opiate analgesic; Z87.891 Personal history of nicotine dependence; Z95.5 Presence of coronary angioplasty implant and graft
CPT/HCPCS: 71045; 80053; 80061; 85610; 85730; 87081; 93005; 93458; 93571; C1887 ×3; C1894; 36415; 85027

== ENCOUNTER → 2021-09-03 | Outpatient (CLI) | payer MEDICARE ==
[~2021-09-03] MED LIST changes: -ADENOSINE 90 MG/30 ML (ADENOSCAN) VIAL IV ONE; -HEParin (CATH LAB) 2,000 ML IV ONE; -HEParin 1000 UNIT/ML (10ML VIAL) FOR BOLUS ONE; -LIDOCAINE 1% INJ 50 ML (XYLOCAINE) VIAL ONE; -MIDAZOLAM 5 MG/5 ML (VERSED) VIAL ONE; -NITRO DRIP 25000 MCG/D5W 250 ML IV ONE; -NS IV 1000 ML 1,000 ML IV SCH; -NS IV 1000 ML 1,000 ML ONE; -VERAPAMIL 5 MG/2 ML (CALAN) VIAL IV ONE; -fentaNYL INJ 100 MCG/2 ML AMP ONE
--- NOTE | 2021-09-04 14:18 | Diagnostic Imaging Report ---
INDICATION: Routine screening. COMPARISON: 07/03/2020 and 06/02/2019. TECHNIQUE: Unilateral right 2D and 3D screening mammography was performed with CAD. FINDINGS: The right breast is heterogeneously dense, limiting the sensitivity of mammography. There are benign calcifications scattered throughout the right breast. No mass or malignant-appearing microcalcifications are seen. The right axilla is unremarkable. IMPRESSION: No mammographic features suspicious for malignancy are identified. ACR BI-RADS Category 2: Benign findings. Result letter will be mailed to the patient. Note: At least 10% of breast cancer is not imaged by mammography. Dictated by: Dictated on workstation # [id number]
== END ==
LOC: RAD 11:30
PROVIDERS: ATTEND Nurse Practitioner Family
DX: Z12.31 Encounter for screening mammogram for malignant neoplasm of breast (principal); Z90.12 Acquired absence of left breast and nipple
CPT/HCPCS: 77063

== ENCOUNTER 2021-09-06 14:39 | Outpatient (RCR) | payer MEDICARE ==
[~2021-09-06 14:39] MED LIST changes: -FEXO-249 PO; +NF-ALLE180 PO
== END 2021-09-07 | disposition home or self-care (01) ==
PROVIDERS: ATTEND Surgery
DX: R26.89 Other abnormalities of gait and mobility (principal); R42 Dizziness and giddiness

== ENCOUNTER 2021-09-10 12:50 | Outpatient (RCR) | payer MEDICARE | END 2021-09-30 15:30 | disposition home or self-care (01) | PROVIDERS: ATTEND Surgery | DX: R26.89 Other abnormalities of gait and mobility (principal); R42 Dizziness and giddiness ==

== ENCOUNTER 2021-09-12 12:27 | Emergency (ER) | payer MEDICARE ==
[~2021-09-12] VITALS: Ht 162 cm; Wt 80.0 kg
--- NOTE | 2021-09-12 12:39 | ED Lower Extremity ---
General Chief Complaint: Lower Extremity Stated Complaint: L FOOT SWOLLEN Source: patient Exam Limitations: no limitations History of Present Illness Date Seen by Provider: September 12, 2021 Time Seen by Provider: 12:36 Initial Comments Patient is a 80-year-old female who presents to ED left foot and left ankle pain. Pain started yesterday. at bedside who provided most of the history. Patient does have a form of dementia and feels like she is at her current baseline. No obvious trauma. They noted some swelling without redness or bruising. History of blood clots in the past. Not currently on a blood thinner. She does state that her dogs sometimes step on her left foot. She ambulates with a walker. She has been complain of bilateral knee pain and leg pain over the past 2 weeks. Patient has difficulty ambulating secondary to the pain. Denies taking thing for pain. Has been wearing knee brace to help with her knee pain with a history of arthritis. Denies fever, chills, nausea, vomiting, current chest pain shortness of breath or cough. Allergies and Home Medications Allergies Coded Allergies: No Known Drug Allergies (Verified , 05/03/16) Patient Home Medication List Home Medication List Reviewed: Yes ALPRAZolam (ALPRAZolam) 0.25 Mg Tablet, 0.25 MG PO TID PRN for ANXIETY, (Reported) Entered as Reported by: ANGEL BETANCUR on 08/14/21 1232 Amlodipine Besylate (Amlodipine Besylate) 2.5 Mg Tablet, 2.5 MG PO DAILY, (Reported) Entered as Reported by: ANGEL BETANCUR on 08/14/21 1232 Aspirin (Aspirin EC) 81 Mg Tablet.dr, 81 MG PO DAILY, (Reported) Entered as Reported by: RISHABH NEAL on 09/05/20 1239 Atenolol (Atenolol) 25 Mg Tablet, 25 MG PO DAILY, (Reported) Entered as Reported by: RISHABH NEAL on 04/15/19 0743 Atorvastatin Calcium (Atorvastatin Calcium) 40 Mg Tablet, 40 MG PO HS, (Reported) Entered as Reported by: RISHABH NEAL on 04/15/19 0743 Calcium Carbonate/Vitamin D3 (Calcium + Vitamin D Tablet) 1 Each Tablet, 1 EACH PO BID, (Reported) Entered as Reported by: ANGEL BETANCUR on 08/14/21 1232 Cetirizine HCl (Cetirizine HCl) 10 Mg Tablet, 10 MG PO DAILY, (Reported) Entered as Reported by: ANGEL BETANCUR on 08/14/21 1232 Citalopram Hydrobromide (Citalopram HBr) 40 Mg Tablet, 40 MG PO DAILY, (Reported) Entered as Reported by: ANGEL BETANCUR on 08/14/21 1232 Donepezil HCl (Donepezil HCl) 10 Mg Tablet, 10 MG PO DAILY, (Reported) Entered as Reported by: RISHABH NEAL on 04/15/19 0743 Hydrocodone/Acetaminophen (Hydrocodone-Acetamin 5-325 mg) 1 Each Tablet, 1 TAB PO Q6H PRN for PAIN-MODERATE (5-7), (Reported) Entered as Reported by: ANGEL BETANCUR on 08/14/21 1232 Loperamide HCl (Loperamide) 2 Mg Tablet, 4 MG PO BID PRN for DIARRHEA, (Reported) Entered as Reported by: ANGEL BETANCUR on 08/14/21 1232 Magnesium Oxide (Magnesium) 400 Mg Tablet, 200 MG PO BID, (Reported) Entered as Reported by: ANGEL BETANCUR on 08/14/21 1232 Montelukast Sodium (Montelukast Sodium) 10 Mg Tablet, 10 MG PO HS, (Reported) Entered as Reported by: RISHABH NEAL on 09/05/20 1239 [place]-3/Dha/Epa/Fish Oil (Fish Oil 1,400 mg Softgel) 1 Each Capsule.dr, 1 EACH PO DAILY, (Reported) Entered as Reported by: ANGEL BETANCUR on 08/14/21 1232 [place]-3/Dha/Epa/Fish Oil (Fish Oil 1,400 mg Softgel) 1 Each Capsule.dr, 2 EACH PO HS, (Reported) Entered as Reported by: ANGEL BETANCUR on 08/14/21 1232 Pantoprazole Sodium (Pantoprazole Sodium) 40 Mg Tablet.dr, 40 MG PO DAILY, (Reported) Entered as Reported by: RISHABH NEAL on 09/05/20 1239 Potassium Gluconate (Potassium Gluconate 595 MG) 99 Mg Tablet, 99 MG PO BID, (Reported) Entered as Reported by: RISHABH NEAL on 09/05/20 1239 Review of Systems Constitutional: No chills, No diaphoresis, No malaise, No weakness EENTM: No ear discharge, No blurred vision, No double vision, No mouth pain Respiratory: No cough, No dyspnea on exertion Gastrointestinal: No abdominal pain, No diarrhea, No nausea, No vomiting Musculoskeletal: No back pain; joint pain, joint swelling Skin: change in color All Other Systems Reviewed Negative Unless Noted: Yes Past Cbflmpd-Maphcf-Kvvpsl Hx Immunizations Up To Date Tetanus Booster (TDap): Unknown First/Initial COVID19 Vaccinat: doesn't remember Second COVID19 Vaccination Nader: doesn't remember Third COVID19 Vaccination Date: doesn't remember Seasonal Allergies Seasonal Allergies: Yes Past Medical History Surgeries: Yes (LEFT BREAST/COLONOSCOPY-POLYP REMVED, PREV CEA) Breast, Coronary Stent, Orthopedic, Tonsillectomy, Vascular Surgery Respiratory: Yes (doesn't have cpap "anymore") Pneumonia, Sleep Apnea, COPD Currently Using CPAP: No Currently Using BIPAP: No Cardiac: Yes Coronary Artery Disease, Hypertension, Peripheral Vascular Neurological: Yes Dementia Reproductive Disorders: No Female Reproductive Disorders: Denies Sexually Transmitted Disease: No Genitourinary: No Gastrointestinal: Yes (DIARRHEA (NERVOUS BOWEL)) Gastroesophageal Reflux Musculoskeletal: Yes (ARTHRITIS KNEE'S) Arthritis Endocrine: No HEENT: Yes Cataract Loss of Vision: Bilateral Hearing Impairment: Hard of Hearing Cancer: Yes Leukemia, Breast Psychosocial: Yes Anxiety, Depression Integumentary: No Blood Disorders: No Adverse Reaction/Blood Tranf: No Family Medical History FHx: gastric ulcer 19 FATHER Stroke or transient ischemic attack in mother Noncontributory Physical Exam Vital Signs Vital Signs - First Documented 09/12/21 12:29 Temp 36.2 Pulse 57 Resp 18 B/P (MAP) 134/66 (88) Pulse Ox 96 Capillary Refill : Height, Weight, BMI Height: 5'3.00" Weight: 197lbs. 0.0oz. [id number]; 31.17 BMI Method:Estimated General Appearance: WD/WN, no apparent distress HEENT: PERRL/EOMI, normal ENT inspection, TMs normal, pharynx normal Neck: non-tender, full range of motion, supple Cardiovascular: regular rate, rhythm, no edema, no gallop, no JVD Respiratory: chest non-tender, lungs clear, normal breath sounds, no respiratory distress, no accessory muscle use Gastrointestinal: normal bowel sounds, non tender, soft Legs: left leg other (Left calf tenderness without Swelling, erythema or bruising.) Ankles: left ankle limited range of motion, left ankle pain, left ankle soft tissue tenderness, left ankle swelling Feet: left foot limited range of motion, left foot soft tissue tenderness, left foot swelling Neurologic/Tendon: normal sensation 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, no motor/sensory deficits, alert, normal mood/affect, oriented x 3 Skin: other (Swelling of the left dorsum foot.) Progress/Results/Core Measures Results/Orders Lab Results Laboratory Tests Test 09/12/21 13:00 Range/Units White Blood Count 7.1 4.3-11.0 10^3/uL Red Blood Count 3.62 L 3.80-5.11 10^6/uL Hemoglobin 9.0 L 11.5-16.0 g/dL Hematocrit 29 L 35-52 % Mean Corpuscular Volume 80 80-99 fL Mean Corpuscular Hemoglobin 25 25-34 pg Mean Corpuscular Hemoglobin Concent 31 L 32-36 g/dL Red Cell Distribution Width 15.8 H 10.0-14.5 % Platelet Count 186 130-400 10^3/uL Mean Platelet Volume 9.4 9.0-12.2 fL Immature Granulocyte % (Auto) 0 % Neutrophils (%) (Auto) 79 H 42-75 % Lymphocytes (%) (Auto) 7 L 12-44 % Monocytes (%) (Auto) 12 0-12 % Eosinophils (%) (Auto) 1 0-10 % Basophils (%) (Auto) 1 0-10 % Neutrophils # (Auto) 5.6 1.8-7.8 10^3/uL Lymphocytes # (Auto) 0.5 L 1.0-4.0 10^3/uL Monocytes # (Auto) 0.9 0.0-1.0 10^3/uL Eosinophils # (Auto) 0.0 0.0-0.3 10^3/uL Basophils # (Auto) 0.0 0.0-0.1 10^3/uL Immature Granulocyte # (Auto) 0.0 0.0-0.1 10^3/uL Neutrophils % (Manual) 86 % Lymphocytes % (Manual) 8 % Monocytes % (Manual) 6 % Hypochromasia SLIGHT Anisocytosis SLIGHT Elliptocytes SLIGHT Prothrombin Time 14.0 12.2-14.7 SEC INR Comment 1.0 0.8-1.4 Activated Partial Thromboplast Time 25 24-35 SEC Sodium Level 136 135-145 MMOL/L Potassium Level 4.3 3.6-5.0 MMOL/L Chloride Level 100 98-107 MMOL/L Carbon Dioxide Level 26 21-32 MMOL/L Anion Gap 10 5-14 MMOL/L Blood Urea Nitrogen 15 7-18 MG/DL Creatinine 1.21 0.60-1.30 MG/DL Estimat Glomerular Filtration Rate 45 BUN/Creatinine Ratio 12 Glucose Level 111 H 70-105 MG/DL Calcium Level 8.6 8.5-10.1 MG/DL Corrected Calcium 8.8 8.5-10.1 MG/DL Total Bilirubin 1.3 H 0.1-1.0 MG/DL Aspartate Amino Transf (AST/SGOT) 15 5-34 U/L Alanine Aminotransferase (ALT/SGPT) 8 0-55 U/L Alkaline Phosphatase 73 40-136 U/L Total Protein 6.2 L 6.4-8.2 GM/DL Albumin 3.7 3.2-4.5 GM/DL My Orders Orders - KYLE SOLANO Cbc With Automated Diff (09/12/21 12:34) Comprehensive Metabolic Panel (09/12/21 12:34) Partial Thromboplastin Time (09/12/21 12:34) Protime With Inr (09/12/21 12:34) Us Venous Lower Ext Lt (09/12/21 12:34) Ankle, Left, 3 Views (09/12/21 12:34) Foot, Left, 3 Views (09/12/21 12:34) Manual Differential (09/12/21 13:00) Vital Signs/I&O 09/12/21 09/12/21 12:29 14:22 Temp 36.2 36.2 Pulse 57 57 Resp 18 18 B/P (MAP) 134/66 (88) 134/66 Pulse Ox 96 96 Departure Communication (PCP) Patient is a 80-year-old female presents ED with left lower ankle and foot pain. After talking to patient her large dog may have stepped on her foot. No known falls according to at bedside. History of dementia. She is at her current baseline. She does have some mild swelling to the left dorsum foot with tenderness on the dorsum side and lateral side of the foot.. Neurovascular intact. Limited movement of the left ankle and foot. X-ray shows subtle deformity with cortical irregularity involving the fifth proximal phalanx. Concerning for fracture. X-ray of the left ankle negative for fracture. Patient was placed in a boot. She does ambulate with a walker. Will recommend limiting weightbearing. She does use a walker at home. Ice and elevate. She has pain medication at home. Ultrasound was negative for DVT. Normal white blood count. Hemoglobin 9.0. Recommend following up with your PCP with today's lab work. Provide orthopedic follow-up in 7-[address] Manning. Impression Primary Impression: Fracture of foot Disposition: 01 HOME, SELF-CARE Condition: Stable Departure-Patient Inst. Decision time for Depature: 14:07 Referrals: NO,LOCAL PHYSICIAN (PCP) Primary Care Physician JACKIE MANNING MD Patient Instructions: Foot Fracture (DC) KYLE SOLANO September 12, 2021 12:39
[2021-09-12 13:06] LABS: BASOPHILS % (AUTO) 1 % (0-10); EOSINOPHILS % (AUTO) 1 % (0-10); HEMATOCRIT 29 % (35-52); LYMPHOCYTES # (AUTO) 0.5 10^3/uL (1.0-4.0); LYMPHOCYTES % (AUTO) 7 % (12-44); MEAN CORPUSCULAR HEMOGLOBIN 25 pg (25-34); MEAN CORPUSCULAR HGB CONC 31 g/dL (32-36); MEAN CORPUSCULAR VOLUME 80 fL (80-99); MEAN PLATELET VOLUME 9.4 fL (9.0-12.2); MONOCYTES # (AUTO) 0.9 10^3/uL (0.0-1.0); MONOCYTES % (AUTO) 12 % (0-12); NEUTROPHILS # (AUTO) 5.6 10^3/uL (1.8-7.8); NEUTROPHILS % (AUTO) 79 % (42-75); PLATELET COUNT 186 10^3/uL (130-400); WHITE BLOOD COUNT 7.1 10^3/uL (4.3-11.0)
[2021-09-12 13:19] LABS: ALBUMIN 3.7 GM/DL (3.2-4.5); POTASSIUM 4.3 MMOL/L (3.6-5.0)
[2021-09-12 13:21] LABS: CALCIUM 8.6 MG/DL (8.5-10.1)
[2021-09-12 13:22] LABS: TOTAL PROTEIN 6.2 GM/DL (6.4-8.2)
--- NOTE | 2021-09-12 13:22 | Diagnostic Imaging Report ---
Indication: Lateral ankle pain. COMPARISON: None FINDINGS: 3 radiographic views of the left ankle were obtained. There is chronic appearing deformity to the distal fibular tip likely on the basis of old healed fracture. Otherwise, osseous structures are intact. Joint spaces are maintained. Note is made of subchondral lucency involving the lateral margins of the talar dome consistent with subchondral cyst; likely degenerative. There is mild generalized soft tissue edema. No unexpected radiopaque foreign bodies are seen. IMPRESSION: 1. No acute fracture or dislocation of the left ankle. 2. Degenerative changes with probable subchondral cyst of the lateral talar dome. Dictated by: Dictated on workstation # [id number]
[2021-09-12 13:23] LABS: BILIRUBIN,TOTAL 1.3 MG/DL (0.1-1.0)
[2021-09-12 13:25] LABS: CREATININE SERUM 1.21 MG/DL (0.60-1.30)
--- NOTE | 2021-09-12 13:36 | Diagnostic Imaging Report ---
INDICATION: Lateral ankle pain. No known injury. COMPARISON: None. FINDINGS: Multiple radiographic views of the left foot were obtained. There is subtle deformity and cortical irregularity involving the proximal medial margins of the fifth proximal phalanx. Otherwise, osseous structures are intact. Joint spaces are maintained. No unexpected radiopaque foreign bodies are seen. IMPRESSION: 1. Subtle deformity with cortical irregularity involving the fifth proximal phalanx as above. Appearance is concerning for fracture. Correlation with point tenderness is recommended. Dictated by: Dictated on workstation # [id number]
--- NOTE | 2021-09-12 13:36 | Diagnostic Imaging Report ---
PROCEDURE: US left lower extremity venous. TECHNIQUE: Multiple real-time grayscale images were obtained over the left lower extremity in various projections. Additional duplex Doppler and color Doppler images were also obtained. INDICATION: Left lower extremity swelling. FINDINGS: There is no evidence of left lower extremity DVT. Left lower extremity deep venous system shows normal compressibility with normal response to augmentation and Valsalva. No fluid collection or mass is detected. IMPRESSION: No evidence of left lower extremity DVT. Dictated by: Dictated on workstation # [id number]
[2021-09-12 14:04] LABS: ANISOCYTOSIS SLIGHT; ELLIPT/OVALOCYTES SLIGHT; HYPOCHROMASIA SLIGHT; LYMPHOCYTES % (MANUAL) 8 %; MONOCYTES % (MANUAL) 6 %; NEUTROPHILS % (MANUAL) 86 %
[2021-09-12 14:22] VITALS: BP 134/66
== END 2021-09-12 14:23 | disposition home or self-care (01) ==
LOC: ER 12:27
DX: M79.89 Other specified soft tissue disorders (principal); M25.472 Effusion, left ankle; F03.90 Unspecified dementia, unspecified severity, without behavioral disturbance, psychotic disturbance, mood disturbance, and anxiety; Z86.718 Personal history of other venous thrombosis and embolism
CPT/HCPCS: 73610; 73630; 80053; 85007; 85027; 85610; 85730; 93971; 99282; L2114; 36415

== ENCOUNTER → 2021-10-15 | Outpatient (CLI) | payer MEDICARE ==
[~2021-10-15] MED LIST changes: -GUAI100L56 PO; +GUAI100L74 PO
[2021-10-15 14:41] LABS: BASOPHILS # (AUTO) 0.1 10^3/uL (0.0-0.1); BASOPHILS % (AUTO) 1 % (0-10); EOSINOPHILS # (AUTO) 0.1 10^3/uL (0.0-0.3); EOSINOPHILS % (AUTO) 1 % (0-10); HEMATOCRIT 32 % (35-52); HEMOGLOBIN 9.6 g/dL (11.5-16.0); LYMPHOCYTES # (AUTO) 0.9 10^3/uL (1.0-4.0); LYMPHOCYTES % (AUTO) 10 % (12-44); MEAN CORPUSCULAR HEMOGLOBIN 24 pg (25-34); MEAN CORPUSCULAR HGB CONC 30 g/dL (32-36); MEAN CORPUSCULAR VOLUME 79 fL (80-99); MEAN PLATELET VOLUME 9.1 fL (9.0-12.2); MONOCYTES # (AUTO) 0.6 10^3/uL (0.0-1.0); MONOCYTES % (AUTO) 7 % (0-12); NEUTROPHILS % (AUTO) 82 % (42-75); PLATELET COUNT 220 10^3/uL (130-400); WHITE BLOOD COUNT 8.6 10^3/uL (4.3-11.0)
[2021-10-15 15:05] LABS: ALBUMIN 3.9 GM/DL (3.2-4.5); BILIRUBIN,TOTAL 1.5 MG/DL (0.1-1.0); CALCIUM 8.8 MG/DL (8.5-10.1); CREATININE SERUM 1.12 MG/DL (0.60-1.30); POTASSIUM 3.8 MMOL/L (3.6-5.0); TOTAL PROTEIN 6.8 GM/DL (6.4-8.2)
== END ==
LOC: CARD 14:30
PROVIDERS: ATTEND Nurse Practitioner Family
DX: R53.83 Other fatigue (principal); R41.0 Disorientation, unspecified
CPT/HCPCS: 36415; 80053; 82550; 84484; 85025; 93005

== ENCOUNTER → 2021-10-17 | Outpatient (CLI) | payer MEDICARE | LOC: CARD 14:30 | PROVIDERS: ATTEND Nurse Practitioner Family | DX: R79.89 Other specified abnormal findings of blood chemistry (principal) | CPT/HCPCS: 93005 ==

== ENCOUNTER 2021-11-14 21:58 | Emergency (ER) | payer MEDICARE ==
[~2021-11-14] VITALS: Ht 162 cm; Wt 72.5 kg
--- NOTE | 2021-11-14 22:21 | ED Back Pain ---
General Chief Complaint: Back Problems Stated Complaint: FALL Nursing Triage Note: patient controlled slid from bed to floor. complaint of left back pain. abrasion noted middle/side left back. pt complaint of dizziness with transfer from cot to bed. Source of Information: Patient Exam Limitations: No Limitations History of Present Illness Date Seen by Provider: Nov 14, 2021 Time Seen by Provider: 22:10 Initial Comments Patient is an 80-year-old female history of dementia brought to the emergency room after a fall at home. Patient was going to sit down and missed the bed, she fell striking her left flank on a piece of furniture. became concerned and called EMS. Family members are present at the bedside and do not believe that she hit her head. No loss of consciousness. She has no other complaints or recent illness or injury. She states she is chronically short of breath it is no different this evening than usual. She is not on blood thinners. All other review of systems reviewed and negative except as stated Location: Other (left flank) Timing/Duration: 1 Hour Severity: Moderate Pain/Injury Location: Back Method of Injury: Fall Modifying Factors: Improves With Immobilization; Worse With Jarring, Worse With Movement Associated Symptoms: denies symptoms Allergies and Home Medications Allergies Coded Allergies: No Known Drug Allergies (Verified , 05/03/16) Patient Home Medication List Home Medication List Reviewed: Yes ALPRAZolam (ALPRAZolam) 0.25 Mg Tablet, 0.25 MG PO TID PRN for ANXIETY, (Reported) Entered as Reported by: ANGEL BETANCUR on 08/14/21 1232 Amlodipine Besylate (Amlodipine Besylate) 2.5 Mg Tablet, 2.5 MG PO DAILY, (Reported) Entered as Reported by: ANGEL BETANCUR on 08/14/21 1232 Aspirin (Aspirin EC) 81 Mg Tablet.dr, 81 MG PO DAILY, (Reported) Entered as Reported by: RISHABH NEAL on 09/05/20 1239 Atenolol (Atenolol) 25 Mg Tablet, 25 MG PO DAILY, (Reported) Entered as Reported by: RISHABH NEAL on 04/15/19 0743 Atorvastatin Calcium (Atorvastatin Calcium) 40 Mg Tablet, 40 MG PO HS, (Reported) Entered as Reported by: RISHABH NEAL on 04/15/19 0743 Calcium Carbonate/Vitamin D3 (Calcium + Vitamin D Tablet) 1 Each Tablet, 1 EACH PO BID, (Reported) Entered as Reported by: ANGEL BETANCUR on 08/14/21 1232 Cetirizine HCl (Cetirizine HCl) 10 Mg Tablet, 10 MG PO DAILY, (Reported) Entered as Reported by: ANGEL BETANCUR on 08/14/21 1232 Citalopram Hydrobromide (Citalopram HBr) 40 Mg Tablet, 40 MG PO DAILY, (Reported) Entered as Reported by: ANGEL BETANCUR on 08/14/21 1232 Donepezil HCl (Donepezil HCl) 10 Mg Tablet, 10 MG PO DAILY, (Reported) Entered as Reported by: RISHABH NEAL on 04/15/19 0743 Hydrocodone/Acetaminophen (Hydrocodone-Acetamin 5-325 mg) 1 Each Tablet, 1 TAB PO Q6H PRN for PAIN-MODERATE (5-7), (Reported) Entered as Reported by: ANGEL BETANCUR on 08/14/21 1232 Loperamide HCl (Loperamide) 2 Mg Tablet, 4 MG PO BID PRN for DIARRHEA, (Reported) Entered as Reported by: ANGEL BETANCUR on 08/14/21 1232 Magnesium Oxide (Magnesium) 400 Mg Tablet, 200 MG PO BID, (Reported) Entered as Reported by: ANGEL BETANCUR on 08/14/21 1232 Montelukast Sodium (Montelukast Sodium) 10 Mg Tablet, 10 MG PO HS, (Reported) Entered as Reported by: RISHABH NEAL on 09/05/20 1239 [place]-3/Dha/Epa/Fish Oil (Fish Oil 1,400 mg Softgel) 1 Each Capsule.dr, 1 EACH PO DAILY, (Reported) Entered as Reported by: ANGEL BETANCUR on 08/14/21 1232 [place]-3/Dha/Epa/Fish Oil (Fish Oil 1,400 mg Softgel) 1 Each Capsule.dr, 2 EACH PO HS, (Reported) Entered as Reported by: ANGEL BETANCUR on 08/14/21 1232 Pantoprazole Sodium (Pantoprazole Sodium) 40 Mg Tablet.dr, 40 MG PO DAILY, (Reported) Entered as Reported by: RISHABH NEAL on 09/05/20 1239 Potassium Gluconate (Potassium Gluconate 595 MG) 99 Mg Tablet, 99 MG PO BID, (Reported) Entered as Reported by: RISHABH NEAL on 09/05/20 1239 Review of Systems Constitutional: see HPI EENTM: no symptoms reported Respiratory: short of breath (chronic) Cardiovascular: no symptoms reported Gastrointestinal: no symptoms reported Genitourinary: no symptoms reported : No Musculoskeletal: back pain (left flank) Skin: no symptoms reported All Other Systems Reviewed Negative Unless Noted: Yes Past Hgubayo-Zbhgcu-Syewfj Hx Patient Social History Tobacco Use?: No Use of E-Cig and/or Vaping dev: No Substance use?: No Alcohol Use?: No Immunizations Up To Date Tetanus Booster (TDap): Unknown First/Initial COVID19 Vaccinat: 2020 Second COVID19 Vaccination Nader: 2020 Third COVID19 Vaccination Date: 08/30 Seasonal Allergies Seasonal Allergies: Yes Past Medical History Surgery/Hospitalization HX: DEMENTIA, BREAST CA, CARDIAC HX. Surgeries: Yes (LEFT BREAST/COLONOSCOPY-POLYP REMVED, PREV CEA) Breast, Coronary Stent, Orthopedic, Tonsillectomy, Vascular Surgery Respiratory: Yes (doesn't have cpap "anymore") Pneumonia, Sleep Apnea, COPD Currently Using CPAP: No Currently Using BIPAP: No Cardiac: Yes Coronary Artery Disease, Hypertension, Peripheral Vascular Neurological: Yes Dementia Reproductive Disorders: No Female Reproductive Disorders: Denies Sexually Transmitted Disease: No Genitourinary: No Gastrointestinal: Yes (DIARRHEA (NERVOUS BOWEL)) Gastroesophageal Reflux Musculoskeletal: Yes (ARTHRITIS KNEE'S) Arthritis Endocrine: No HEENT: Yes Cataract Loss of Vision: Bilateral Hearing Impairment: Hard of Hearing Cancer: Yes Leukemia, Breast Psychosocial: Yes Anxiety, Depression Integumentary: No Blood Disorders: No Adverse Reaction/Blood Tranf: No Family Medical History FHx: gastric ulcer 19 FATHER Stroke or transient ischemic attack in mother Noncontributory Physical Exam Vital Signs Vital Signs - First Documented 11/14/21 22:01 Temp 36.8 Pulse 54 Resp 18 B/P (MAP) 148/66 (93) Pulse Ox 93 O2 Delivery Room Air Capillary Refill : Less Than 3 Seconds Height, Weight, BMI Height: 5'3.00" Weight: 197lbs. 0.0oz. [id number]; 27.00 BMI Method:Estimated General Appearance: No Apparent Distress, WD/WN HEENT: PERRL/EOMI (pupils 2mm and equil bilaterally) Neck: Full Range of Motion, Non Tender Cardiovascular: Regular Rate, Rhythm, Normal Peripheral Pulses Respiratory: Lungs Clear, Normal Breath Sounds, No Accessory Muscle Use Gastrointestinal: Non Tender, Soft Back: Other (large contusion left flank, adjacent to lower thoracic spine - abrasion and developing ecchymoses. tender to palpation. no crepitance in the posterior ribs; no subcutaneous emphysema; no lacerations) Extremity: Normal Capillary Refill, Normal Range of Motion, No Pedal Edema Neurologic/Psychiatric: Alert, No Motor/Sensory Deficits, Normal Mood/Affect Skin: Normal Color, Warm/Dry, Other (as above) Progress/Results/Core Measures Results/Orders Vital Signs/I&O 11/14/21 22:01 Temp 36.8 Pulse 54 Resp 18 B/P (MAP) 148/66 (93) Pulse Ox 93 O2 Delivery Room Air Blood Pressure Mean: 93 Departure Impression Primary Impression: Contusion of left back wall of thorax Qualified Codes: S20.222A - Contusion of left back wall of thorax, initial encounter Disposition: 01 HOME, SELF-CARE Condition: Stable Departure-Patient Inst. Decision time for Depature: 22:20 Referrals: NO,LOCAL PHYSICIAN (PCP/Family) Primary Care Physician Patient Instructions: Contusion (DC) Add. Discharge Instructions: Ice packs to the area of concern 20 minutes at a time 3-4 times daily for swelling. Xigi-thl-asaeowc extra strength Tylenol, 2 tablets every 6 hours as needed for pain. If she develops any worsening shortness of breath, nausea vomiting or other emergent concerning symptoms please bring her back to the emergency department for reevaluation Follow-up with your primary care doctor as needed. CLAUDIA VALENCIA MD Nov 14, 2021 22:21
[2021-11-14] MEDS ORDERED: ACETAMINOPHEN 500 MG TAB (TYLENOL) PO ONE (22:30)
[2021-11-14 22:39] VITALS: BP 151/77
== END 2021-11-14 22:40 | disposition home or self-care (01) ==
LOC: EDUNIT# 21:58 → ER 21:59
DX: S20.222A Contusion of left back wall of thorax, initial encounter (principal); W06.XXXA Fall from bed, initial encounter

== ENCOUNTER 2022-07-08 20:55 | Emergency (ER) | payer MEDICARE ==
[~2022-07-08 20:55] MED LIST changes: +CLOP-31 PO; -CLOP75TA69 PO; +DIPH-1122 PO; -DIPH25CA48 PO
[2022-07-08] MEDS ORDERED: NS IV 500 ML 500 ML IV SCH (21:30)
--- NOTE | 2022-07-08 21:41 | Diagnostic Imaging Report ---
EXAM: CHEST 1 VIEW, AP/PA ONLY INDICATION: Altered mental status. COMPARISON: 08/14/2021. FINDINGS: Stable borderline heart size. Normal central pulmonary vascularity. Patchy airspace opacity in the right upper lobe. There is also mild atelectasis or infiltrate in the left lung base. No pleural effusion or pneumothorax. No acute osseous findings. IMPRESSION: 1. New subtle airspace opacity in the right upper lobe could represent early pneumonitis. There is also mild atelectasis or infiltrate in the left lung base which is new. 2. Stable borderline heart size with normal central pulmonary vascularity. Dictated by: Dictated on workstation # [id number]
[2022-07-08 21:47] LABS: BILIRUBIN,URINE NEGATIVE (NEGATIVE); CLARITY,URINE CLEAR; COLOR,URINE YELLOW; GLUCOSE, URINE (UA) NEGATIVE (NEGATIVE); KETONES,URINE NEGATIVE (NEGATIVE); LEUKOCYTE ESTERASE ,URINE NEGATIVE (NEGATIVE); NITRITE,URINE NEGATIVE (NEGATIVE); PH,URINE 6.5 (5-9); PROTEIN,URINE TRACE (NEGATIVE)
[2022-07-08 22:05] LABS: AMORPHOUS SEDIMENT,UR MOD AMOR PHOSPHATE /LPF; BACTERIA,URINE TRACE /HPF; HYALINE CASTS, URINE 0-2 /LPF; RBC,URINE 0-2 /HPF; SQUAMOUS EPITHELIAL CELL,UR 0-2 /HPF; WBC,URINE RARE /HPF
[2022-07-08 22:33] LABS: BASOPHILS # (AUTO) 0.1 10^3/uL (0.0-0.1); BASOPHILS % (AUTO) 1 % (0-10); EOSINOPHILS # (AUTO) 0.1 10^3/uL (0.0-0.3); EOSINOPHILS % (AUTO) 1 % (0-10); HEMATOCRIT 38 % (35-52); HEMOGLOBIN 11.9 g/dL (11.5-16.0); LYMPHOCYTES % (AUTO) 34 % (12-44); MEAN CORPUSCULAR HEMOGLOBIN 28 pg (25-34); MEAN CORPUSCULAR HGB CONC 31 g/dL (32-36); MEAN CORPUSCULAR VOLUME 89 fL (80-99); MEAN PLATELET VOLUME 9.9 fL (9.0-12.2); MONOCYTES # (AUTO) 0.8 10^3/uL (0.0-1.0); MONOCYTES % (AUTO) 9 % (0-12); NEUTROPHILS # (AUTO) 4.8 10^3/uL (1.8-7.8); NEUTROPHILS % (AUTO) 55 % (42-75); PLATELET COUNT 162 10^3/uL (130-400); WHITE BLOOD COUNT 8.8 10^3/uL (4.3-11.0)
[2022-07-08 22:48] LABS: ALBUMIN 3.9 GM/DL (3.2-4.5)
[2022-07-08 22:49] LABS: CALCIUM 12.3 MG/DL (8.5-10.1)
[2022-07-08 22:51] LABS: TOTAL PROTEIN 8.5 GM/DL (6.4-8.2)
[2022-07-08 22:54] LABS: CREATININE SERUM 1.03 MG/DL (0.60-1.30)
--- NOTE | 2022-07-08 23:37 | ED General ---
General Chief Complaint: General Problems/Pain Stated Complaint: DEHYDRATION, DEMENTIA Nursing Triage Note: PT TO RM 10 BY WC WITH CC OF "SLEEING ALL DAY, NOT DRINKING WATER AND NOT EATING." SINCE THIS AM. PT SON AT BEDSIDE.. PT SON REPORTS SWELLING IN PT ANKLES. PT HAS HX OF DEMENTIA Source of Information: Patient, Family (Son and daughter give history independently) History of Present Illness Date Seen by Provider: Jul 08, 2022 Time Seen by Provider: 21:39 Initial Comments 81-year-old female presents emergency department today with her son and daughter. They states she has been increasingly more somnolent over the last 3 days. Her son is a relatively poor historian and states that she "has good days and bad days" given her dementia and that sometimes she is more somnolent than others but he definitely believes it is worse after the last 3 days. He states she has had decreased p.o. intake, especially for fluids because she is just sleeping all the time. She has not had any fevers or chills. She has not really had any complaints outside of being sleepy. No sick contacts. Allergies and Home Medications Allergies Coded Allergies: No Known Drug Allergies (Verified , 05/03/16) Patient Home Medication List Home Medication List Reviewed: Yes ALPRAZolam (ALPRAZolam) 0.25 Mg Tablet, 0.25 MG PO TID PRN for ANXIETY, (Reported) Entered as Reported by: ANGEL BETANCUR on 08/14/21 1232 Amlodipine Besylate (Amlodipine Besylate) 2.5 Mg Tablet, 2.5 MG PO DAILY, (Reported) Entered as Reported by: ANGEL BETANCUR on 08/14/21 1232 Aspirin (Aspirin EC) 81 Mg Tablet.dr, 81 MG PO DAILY, (Reported) Entered as Reported by: RISHABH NEAL on 09/05/20 1239 Atenolol (Atenolol) 25 Mg Tablet, 25 MG PO DAILY, (Reported) Entered as Reported by: RISHABH NEAL on 04/15/19 0743 Atorvastatin Calcium (Atorvastatin Calcium) 40 Mg Tablet, 40 MG PO HS, (Reported) Entered as Reported by: RISHABH NEAL on 04/15/19 0743 Azithromycin (Zithromax) 500 Mg Tablet, 500 MG PO DAILY Prescribed by: SABINO WHITTINGTON MD on 07/08/22 2341 Calcium Carbonate/Vitamin D3 (Calcium + Vitamin D Tablet) 1 Each Tablet, 1 EACH PO BID, (Reported) Entered as Reported by: ANGEL BETANCUR on 08/14/21 1232 Cetirizine HCl (Cetirizine HCl) 10 Mg Tablet, 10 MG PO DAILY, (Reported) Entered as Reported by: ANGEL BETANCUR on 08/14/21 1232 Citalopram Hydrobromide (Citalopram HBr) 40 Mg Tablet, 40 MG PO DAILY, (Reported) Entered as Reported by: ANGEL BETANCUR on 08/14/21 1232 Donepezil HCl (Donepezil HCl) 10 Mg Tablet, 10 MG PO DAILY, (Reported) Entered as Reported by: RISHABH NEAL on 04/15/19 0743 Hydrocodone/Acetaminophen (Hydrocodone-Acetamin 5-325 mg) 1 Each Tablet, 1 TAB PO Q6H PRN for PAIN-MODERATE (5-7), (Reported) Entered as Reported by: ANGEL BETANCUR on 08/14/21 1232 Loperamide HCl (Loperamide) 2 Mg Tablet, 4 MG PO BID PRN for DIARRHEA, (Reported) Entered as Reported by: ANGEL BETANCUR on 08/14/21 1232 Magnesium Oxide (Magnesium) 400 Mg Tablet, 200 MG PO BID, (Reported) Entered as Reported by: ANGEL BETANCUR on 08/14/21 1232 Montelukast Sodium (Montelukast Sodium) 10 Mg Tablet, 10 MG PO HS, (Reported) Entered as Reported by: RISHABH NEAL on 09/05/20 1239 Lewis-3/Dha/Epa/Fish Oil (Fish Oil 1,400 mg Softgel) 1 Each Capsule.dr, 1 EACH PO DAILY, (Reported) Entered as Reported by: ANGEL BETANCUR on 08/14/21 1232 Lewis-3/Dha/Epa/Fish Oil (Fish Oil 1,400 mg Softgel) 1 Each Capsule.dr, 2 EACH PO HS, (Reported) Entered as Reported by: ANGEL BETANCUR on 08/14/21 1232 Pantoprazole Sodium (Pantoprazole Sodium) 40 Mg Tablet.dr, 40 MG PO DAILY, (Reported) Entered as Reported by: RISHABH NEAL on 09/05/20 1239 Potassium Gluconate (Potassium Gluconate 595 MG) 99 Mg Tablet, 99 MG PO BID, (Reported) Entered as Reported by: RISHABH NEAL on 09/05/20 1239 Review of Systems Review of Systems Constitutional: malaise EENTM: no symptoms reported Respiratory: no symptoms reported Cardiovascular: no symptoms reported Gastrointestinal: no symptoms reported Genitourinary: no symptoms reported Musculoskeletal: no symptoms reported Skin: no symptoms reported Psychiatric/Neurological: No Symptoms Reported Hematologic/Lymphatic: No Symptoms Reported Immunological/Allergic: no symptoms reported Past Mwmzqxz-Axmfis-Mtgahg Hx Patient Social History Tobacco Use?: Yes Tobacco type used: Cigarettes Smoking Status: Former Smoker Substance use?: No Alcohol Use?: No Pt feels they are or have been: No Immunizations Up To Date Tetanus Booster (TDap): Unknown Influenza Vaccine Up-to-Date: Yes; Up-to-Date First/Initial COVID19 Vaccinat: 2020 Second COVID19 Vaccination Nader: 2020 Third COVID19 Vaccination Date: 08/30 Seasonal Allergies Seasonal Allergies: Yes Past Medical History Surgery/Hospitalization HX: DEMENTIA, BREAST CA, CARDIAC HX. Surgeries: Yes (LEFT BREAST/COLONOSCOPY-POLYP REMVED, PREV CEA) Breast, Coronary Stent, Orthopedic, Tonsillectomy, Vascular Surgery Respiratory: Yes (doesn't have cpap "anymore") Pneumonia, Sleep Apnea, COPD Currently Using CPAP: No Currently Using BIPAP: No Cardiac: Yes Coronary Artery Disease, Hypertension, Peripheral Vascular Neurological: Yes Dementia Reproductive Disorders: No Female Reproductive Disorders: Denies Sexually Transmitted Disease: No Genitourinary: No Gastrointestinal: Yes (DIARRHEA (NERVOUS BOWEL)) Gastroesophageal Reflux Musculoskeletal: Yes (ARTHRITIS KNEE'S) Arthritis Endocrine: No HEENT: Yes Cataract Loss of Vision: Bilateral Hearing Impairment: Hard of Hearing Cancer: Yes Leukemia, Breast Psychosocial: Yes Anxiety, Depression Integumentary: No Blood Disorders: No Adverse Reaction/Blood Tranf: No Family Medical History Reviewed Nursing Family Hx FHx: gastric ulcer 19 FATHER Stroke or transient ischemic attack in mother No Pertinent Family Hx Noncontributory Physical Exam Vital Signs Vital Signs - First Documented 07/08/22 21:01 Temp 36.0 Pulse 76 Resp 22 B/P (MAP) 128/89 (102) Pulse Ox 93 O2 Delivery Room Air Capillary Refill : Less Than 3 Seconds Height, Weight, BMI Height: 5'3.00" Weight: 197lbs. 0.0oz. [id number]; 27.00 BMI Method:Estimated General Appearance: No Apparent Distress, WD/WN, Other (Somnolent but arousable family at) Eyes: Bilateral Eye EOMI HEENT: Normal ENT Inspection, Other (Pupils are constricted, 1 to 2 mm bilaterally) Neck: Full Range of Motion, Normal Inspection, Non Tender, Supple Respiratory: Chest Non Tender, Lungs Clear, Normal Breath Sounds, No Accessory Muscle Use, No Respiratory Distress Cardiovascular: Regular Rate, Rhythm, No Murmur, Normal Peripheral Pulses Gastrointestinal: Normal Bowel Sounds, No Organomegaly, No Pulsatile Mass, Soft, Tenderness (. Tenderness palpation of the right mid and upper abdomen, suprapubic region. There is voluntary guarding without any rebound tenderness. No mass organomegaly. 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 Skin: Rash Lymphatic: No Adenopathy Progress/Results/Core Measures Suspected Sepsis SIRS Temperature: Pulse: 76 Respiratory Rate: 22 Laboratory Tests 07/08/22 22:28: White Blood Count 8.8 Blood Pressure 128 /89 Mean: 102 Laboratory Tests 07/08/22 22:28: Creatinine 1.03, Platelet Count 162, Total Bilirubin 1.0 Results/Orders Lab Results Laboratory Tests Test 07/08/22 21:41 07/08/22 22:28 Range/Units Urine Color YELLOW Urine Clarity CLEAR Urine pH 6.5 5-9 Urine Specific [place] 1.015 L 1.016-1.022 Urine Protein TRACE H NEGATIVE Urine Glucose (UA) NEGATIVE NEGATIVE Urine Ketones NEGATIVE NEGATIVE Urine Nitrite NEGATIVE NEGATIVE Urine Bilirubin NEGATIVE NEGATIVE Urine Urobilinogen 0.2 < = 1.0 MG/DL Urine Leukocyte Esterase NEGATIVE NEGATIVE Urine RBC (Auto) TRACE-I H NEGATIVE Urine RBC 0-2 /HPF Urine WBC RARE /HPF Urine Squamous Epithelial Cells 0-2 /HPF Urine Crystals PRESENT H /LPF Urine Amorphous Sediment MOD BAI PHOSPHATE H /LPF Urine Bacteria TRACE /HPF Urine Casts PRESENT /LPF Urine Hyaline Casts 0-2 H /LPF Urine Mucus NEGATIVE /LPF Urine Culture Indicated NO Influenza Type A (RT-PCR) Not Detected Not Detecte Influenza Type B (RT-PCR) Not Detected Not Detecte SARS-CoV-2 RNA (RT-PCR) Not Detected Not Detecte White Blood Count 8.8 4.3-11.0 10^3/uL Red Blood Count 4.29 3.80-5.11 10^6/uL Hemoglobin 11.9 11.5-16.0 g/dL Hematocrit 38 35-52 % Mean Corpuscular Volume 89 80-99 fL Mean Corpuscular Hemoglobin 28 25-34 pg Mean Corpuscular Hemoglobin Concent 31 L 32-36 g/dL Red Cell Distribution Width 14.4 10.0-14.5 % Platelet Count 162 130-400 10^3/uL Mean Platelet Volume 9.9 9.0-12.2 fL Immature Granulocyte % (Auto) 0 % Neutrophils (%) (Auto) 55 42-75 % Lymphocytes (%) (Auto) 34 12-44 % Monocytes (%) (Auto) 9 0-12 % Eosinophils (%) (Auto) 1 0-10 % Basophils (%) (Auto) 1 0-10 % Neutrophils # (Auto) 4.8 1.8-7.8 10^3/uL Lymphocytes # (Auto) 3.0 1.0-4.0 10^3/uL Monocytes # (Auto) 0.8 0.0-1.0 10^3/uL Eosinophils # (Auto) 0.1 0.0-0.3 10^3/uL Basophils # (Auto) 0.1 0.0-0.1 10^3/uL Immature Granulocyte # (Auto) 0.0 0.0-0.1 10^3/uL Sodium Level 140 135-145 MMOL/L Potassium Level 4.0 3.6-5.0 MMOL/L Chloride Level 104 98-107 MMOL/L Carbon Dioxide Level 23 21-32 MMOL/L Anion Gap 13 5-14 MMOL/L Blood Urea Nitrogen 21 H 7-18 MG/DL Creatinine 1.03 0.60-1.30 MG/DL Estimat Glomerular Filtration Rate 55 BUN/Creatinine Ratio 20 Glucose Level 93 70-105 MG/DL Calcium Level 12.3 H 8.5-10.1 MG/DL Corrected Calcium 12.4 H 8.5-10.1 MG/DL Total Bilirubin 1.0 0.1-1.0 MG/DL Aspartate Amino Transf (AST/SGOT) 19 5-34 U/L Alanine Aminotransferase (ALT/SGPT) 12 0-55 U/L Alkaline Phosphatase 90 40-136 U/L Total Protein 8.5 H 6.4-8.2 GM/DL Albumin 3.9 3.2-4.5 GM/DL My Orders Orders - SABINO WHITTINGTON DO Comprehensive Metabolic Panel (07/08/22 21:20) Cbc With Automated Diff (07/08/22 21:20) Ua Culture If Indicated (07/08/22 21:20) Covid 19 Inhouse Test (07/08/22 21:20) Influenza A And B By Pcr (07/08/22 21:20) Chest 1 View, Ap/Pa Only (07/08/22 21:20) Ns Iv 500 Ml (Sodium Chloride 0.9%) (07/08/22 21:30) Azithromycin Tablet (Zithromax Tablet) (07/08/22 23:45) Azithromycin Tablet (Zithromax Tablet) (07/08/22 23:45) Vital Signs/I&O 07/08/22 21:01 Temp 36.0 Pulse 76 Resp 22 B/P (MAP) 128/89 (102) Pulse Ox 93 O2 Delivery Room Air Capillary Refill : Less Than 3 Seconds Blood Pressure Mean: 102 Diagnostic Imaging Comments Reviewed the chest x-ray see possible slight infiltrate in the right middle lobe. Departure Impression Primary Impression: Right middle lobe pulmonary infiltrate Additional Impression: Somnolence Disposition: 01 HOME, SELF-CARE Condition: Stable Departure-Patient Inst. Referrals: CLIVE NEVAREZ MD (PCP/Family) Primary Care Physician Patient Instructions: Pneumonia, Adult ED Add. Discharge Instructions: The antibiotics as prescribed until they are gone. There are some subtle changes on her chest x-ray that make you concerned there may be an early pneumonia. Follow-up with Dr. Nevarez by calling to schedule an appointment. I recommend following up in the next 48 to 72 hours. Return to the emergency department for any severe concerns, specifically if she is urinating less than 3 times a day, not taking any fluids whatsoever. All discharge instructions reviewed with patient and/or family. Voiced understanding. Scripts Azithromycin (Azithromycin) 250 Mg Tablet 250 MG PO DAILY for 5 Days, #5 TAB Prov: PK,SABINO L DO 07/08/22 SABINO WHITTINGTON DO Jul 08, 2022 23:37
[2022-07-08] MEDS ORDERED: AZIT500T PO (23:41)
[2022-07-08] MEDS ORDERED: AZIT250T12 PO (23:45)
[2022-07-08] MEDS ORDERED: AZITHROMYCIN 250 MG TAB (ZITHROMAX) PO ONE ×2 (23:45)
[2022-07-09 00:17] VITALS: BP 155/76
== END 2022-07-09 00:17 | disposition home or self-care (01) ==
LOC: EDUNIT# 20:55 → ER 20:56
DX: R40.0 Somnolence (principal); R91.8 Other nonspecific abnormal finding of lung field; Z87.891 Personal history of nicotine dependence; Z28.310 Unvaccinated for COVID-19
CPT/HCPCS: 36415; 51701; 71045; 80053; 81000; 85025; 87636

== ENCOUNTER 2022-07-12 16:53 | Inpatient (IN) | payer MEDICARE ==
[~2022-07-12 16:53] MED LIST changes: +AZIT250T12 PO; +AZIT500T PO
--- NOTE | 2022-07-12 17:14 | ED General ---
General Chief Complaint: General Problems/Pain Stated Complaint: CONSTIPATION Nursing Triage Note: PT BROUGHT IN BY [facility] FROM HOME WITH COMPLAINT OF CONSTIPATION, AND NOT DRINKING. Source of Information: EMS (SABINO WHITTINGTON DO) History of Present Illness Date Seen by Provider: Jul 12, 2022 Time Seen by Provider: 17:03 Initial Comments 81-year-old female presents to the emergency department today via EMS for reported constipation and decreased p.o. intake. Her reported to EMS that she has not had a bowel movement in 3 days. Notably I saw her on Jul 08 for somnolence. She had what was possibly a right lung infiltrate at that time we will start her on antibiotics cautiously. apparently also told EMS that he has only gotten 4 ounces of fluids "down her today." Patient is unable to provide any history upon arrival as she is hypersomnolent All other systems reviewed and negative except documented per HPI. Voice recognition software was used to help create this chart (SABINO WHITTINGTON DO) Allergies and Home Medications Allergies Coded Allergies: No Known Drug Allergies (Verified , 05/03/16) Patient Home Medication List Home Medication List Reviewed: Yes (SABINO WHITTINGTON DO) ALPRAZolam (ALPRAZolam) 0.25 Mg Tablet, 0.25 MG PO TID PRN for ANXIETY, (Reported) Entered as Reported by: ANGEL BETANCUR on 08/14/21 1232 Amlodipine Besylate (Amlodipine Besylate) 2.5 Mg Tablet, 2.5 MG PO DAILY, (Reported) Entered as Reported by: ANGEL BETANCUR on 08/14/21 1232 Aspirin (Aspirin EC) 81 Mg Tablet.dr, 81 MG PO DAILY, (Reported) Entered as Reported by: RISHABH NEAL on 09/05/20 1239 Atenolol (Atenolol) 25 Mg Tablet, 25 MG PO DAILY, (Reported) Entered as Reported by: RISHABH NEAL on 04/15/19 0743 Atorvastatin Calcium (Atorvastatin Calcium) 40 Mg Tablet, 40 MG PO HS, (Reported) Entered as Reported by: RISHABH NEAL on 04/15/19 0743 Azithromycin (Azithromycin) 250 Mg Tablet, 250 MG PO DAILY Prescribed by: SABINO WHITTINGTON MD on 07/08/22 8899 Calcium Carbonate/Vitamin D3 (Calcium + Vitamin D Tablet) 1 Each Tablet, 1 EACH PO BID, (Reported) Entered as Reported by: ANGEL BETANCUR on 08/14/21 1232 Cetirizine HCl (Cetirizine HCl) 10 Mg Tablet, 10 MG PO DAILY, (Reported) Entered as Reported by: ANGEL BETANCUR on 08/14/21 1232 Citalopram Hydrobromide (Citalopram HBr) 40 Mg Tablet, 40 MG PO DAILY, (Reported) Entered as Reported by: ANGEL BETANCUR on 08/14/21 1232 Donepezil HCl (Donepezil HCl) 10 Mg Tablet, 10 MG PO DAILY, (Reported) Entered as Reported by: RISHABH NEAL on 04/15/19 0743 Hydrocodone/Acetaminophen (Hydrocodone-Acetamin 5-325 mg) 1 Each Tablet, 1 TAB PO Q6H PRN for PAIN-MODERATE (5-7), (Reported) Entered as Reported by: ANGEL BETANCUR on 08/14/21 1232 Loperamide HCl (Loperamide) 2 Mg Tablet, 4 MG PO BID PRN for DIARRHEA, (Reported) Entered as Reported by: ANGEL BETANCUR on 08/14/21 1232 Magnesium Oxide (Magnesium) 400 Mg Tablet, 200 MG PO BID, (Reported) Entered as Reported by: ANGEL BETANCUR on 08/14/21 1232 Montelukast Sodium (Montelukast Sodium) 10 Mg Tablet, 10 MG PO HS, (Reported) Entered as Reported by: RISHABH NEAL on 09/05/20 1239 [place]-3/Dha/Epa/Fish Oil (Fish Oil 1,400 mg Softgel) 1 Each Capsule.dr, 1 EACH PO DAILY, (Reported) Entered as Reported by: ANGEL BETANCUR on 08/14/21 1232 [place]-3/Dha/Epa/Fish Oil (Fish Oil 1,400 mg Softgel) 1 Each Capsule.dr, 2 EACH PO HS, (Reported) Entered as Reported by: ANGEL BETANCUR on 08/14/21 1232 Pantoprazole Sodium (Pantoprazole Sodium) 40 Mg Tablet.dr, 40 MG PO DAILY, (Reported) Entered as Reported by: RISHABH NEAL on 09/05/20 1239 Potassium Gluconate (Potassium Gluconate 595 MG) 99 Mg Tablet, 99 MG PO BID, (Reported) Entered as Reported by: RISHABH NEAL on 09/05/20 1239 Review of Systems Review of Systems Constitutional: no symptoms reported (SABINO WHITTINGTON DO) Past Ckrwgfw-Kgbtcc-Lfyglx Hx Immunizations Up To Date Tetanus Booster (TDap): Unknown First/Initial COVID19 Vaccinat: 2020 Second COVID19 Vaccination Nader: 2020 Third COVID19 Vaccination Date: 08/30 (SABINO WHITTINGTON DO) Seasonal Allergies Seasonal Allergies: Yes (SABINO WHITTINGTON DO) Past Medical History Surgery/Hospitalization HX: DEMENTIA, BREAST CA, CARDIAC HX. Surgeries: Yes (LEFT BREAST/COLONOSCOPY-POLYP REMVED, PREV CEA) Breast, Coronary Stent, Orthopedic, Tonsillectomy, Vascular Surgery Respiratory: Yes (doesn't have cpap "anymore") Pneumonia, Sleep Apnea, COPD Currently Using CPAP: No Currently Using BIPAP: No Cardiac: Yes Coronary Artery Disease, Hypertension, Peripheral Vascular Neurological: Yes Dementia Reproductive Disorders: No Female Reproductive Disorders: Denies Sexually Transmitted Disease: No Genitourinary: No Gastrointestinal: Yes (DIARRHEA (NERVOUS BOWEL)) Gastroesophageal Reflux Musculoskeletal: Yes (ARTHRITIS KNEE'S) Arthritis Endocrine: No HEENT: Yes Cataract Loss of Vision: Bilateral Hearing Impairment: Hard of Hearing Cancer: Yes Leukemia, Breast Psychosocial: Yes Anxiety, Depression Integumentary: No Blood Disorders: No Adverse Reaction/Blood Tranf: No (SABINO WHITTINGTON DO) Family Medical History Reviewed Nursing Family Hx (SABINO WHITTINGTON DO) FHx: gastric ulcer 19 FATHER Stroke or transient ischemic attack in mother No Pertinent Family Hx Noncontributory (SABINO WHITTINGTON DO) Physical Exam Vital Signs Vital Signs - First Documented 07/12/22 07/12/22 16:57 19:34 Pulse 63 Resp 20 B/P (MAP) 139/73 (95) Pulse Ox 92 O2 Delivery Room Air O2 Flow Rate 2.00 (VIN PARISH DO) Vital Signs Capillary Refill : Less Than 3 Seconds (SABINO WHITTINGTON DO) Height, Weight, BMI Height: 5'3.00" Weight: 197lbs. 0.0oz. [id number]; 27.00 BMI Method:Estimated General Appearance: No Apparent Distress, Other (Somnolent but arousable. 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 Norm as Tested (Moves all extremities spontaneously, no apparent deficits), Other (Hypersomnolent, confused) Skin: Normal Color, Warm/Dry (PKCHRISTINEH L DO) HEENT: Other (Pupils are pinpoint; ORAL MUCOSA IS EXTREMELY DRY) Neurologic/Psychiatric: Other (Hypersomnolent, confused) (VIN PARISH DO) Progress/Results/Core Measures Suspected Sepsis SIRS Temperature: Pulse: 63 Respiratory Rate: 20 Laboratory Tests 07/12/22 17:30: White Blood Count 8.7 Blood Pressure 139 /73 Mean: 95 Laboratory Tests 07/12/22 17:30: Platelet Count 190 (PK,SABINO L DO) Results/Orders Lab Results Laboratory Tests Test 07/12/22 17:30 07/12/22 19:28 07/12/22 20:15 Range/Units White Blood Count 8.7 4.3-11.0 10^3/uL Red Blood Count 4.26 3.80-5.11 10^6/uL Hemoglobin 11.9 11.5-16.0 g/dL Hematocrit 36 35-52 % Mean Corpuscular Volume 85 80-99 fL Mean Corpuscular Hemoglobin 28 25-34 pg Mean Corpuscular Hemoglobin Concent 33 32-36 g/dL Red Cell Distribution Width 14.1 10.0-14.5 % Platelet Count 190 130-400 10^3/uL Mean Platelet Volume 9.8 9.0-12.2 fL Immature Granulocyte % (Auto) 0 % Neutrophils (%) (Auto) 66 42-75 % Lymphocytes (%) (Auto) 27 12-44 % Monocytes (%) (Auto) 6 0-12 % Eosinophils (%) (Auto) 0 0-10 % Basophils (%) (Auto) 0 0-10 % Neutrophils # (Auto) 5.8 1.8-7.8 10^3/uL Lymphocytes # (Auto) 2.4 1.0-4.0 10^3/uL Monocytes # (Auto) 0.5 0.0-1.0 10^3/uL Eosinophils # (Auto) 0.0 0.0-0.3 10^3/uL Basophils # (Auto) 0.0 0.0-0.1 10^3/uL Immature Granulocyte # (Auto) 0.0 0.0-0.1 10^3/uL Sodium Level 141 135-145 MMOL/L Potassium Level 3.7 3.6-5.0 MMOL/L Chloride Level 104 98-107 MMOL/L Carbon Dioxide Level 22 21-32 MMOL/L Anion Gap 15 H 5-14 MMOL/L Blood Urea Nitrogen 22 H 7-18 MG/DL Creatinine 0.95 0.60-1.30 MG/DL Estimat Glomerular Filtration Rate 60 BUN/Creatinine Ratio 23 Glucose Level 114 H 70-105 MG/DL Calcium Level 11.5 H 8.5-10.1 MG/DL Corrected Calcium 11.9 H 8.5-10.1 MG/DL Total Bilirubin 0.7 0.1-1.0 MG/DL Aspartate Amino Transf (AST/SGOT) 20 5-34 U/L Alanine Aminotransferase (ALT/SGPT) 10 0-55 U/L Alkaline Phosphatase 86 40-136 U/L Total Protein 7.5 6.4-8.2 GM/DL Albumin 3.5 3.2-4.5 GM/DL Magnesium Level 1.2 L 1.6-2.4 MG/DL Ammonia 17 11-32 UMOL/L Urine Color YELLOW Urine Clarity CLEAR Urine pH 6.5 5-9 Urine Specific [place] <=1.005 1.016-1.022 Urine Protein NEGATIVE NEGATIVE Urine Glucose (UA) NEGATIVE NEGATIVE Urine Ketones NEGATIVE NEGATIVE Urine Nitrite NEGATIVE NEGATIVE Urine Bilirubin NEGATIVE NEGATIVE Urine Urobilinogen 0.2 < = 1.0 MG/DL Urine Leukocyte Esterase NEGATIVE NEGATIVE Urine RBC (Auto) 1+ H NEGATIVE Urine RBC 2-5 H /HPF Urine WBC 0-2 /HPF Urine Squamous Epithelial Cells NONE /HPF Urine Crystals PRESENT H /LPF Urine Amorphous Sediment MOD ABI URATES H /LPF Urine Bacteria TRACE /HPF Urine Casts PRESENT /LPF Urine Hyaline Casts 2-5 H /LPF Urine Mucus NEGATIVE /LPF Urine Culture Indicated NO (VIN PARISH DO) My Orders Orders - VIN PARISH DO Magnesium (07/12/22 18:00) Ua Culture If Indicated (07/12/22 18:00) Ammonia (07/12/22 18:14) Arterial Blood Gas (07/12/22 18:14) Ed Iv/Invasive Line Start (07/12/22 20:00) Lactated Ringers (Lr 1000 Ml Iv Solution (07/12/22 20:00) Catheter(Urinary) Insert & Ass 03,15 (07/12/22 20:00) Lidocaine 2% (Urojet) (Xylocaine Urojet) (07/12/22 20:00) (IVN PARISH DO) Medications Given in ED Current Medications Medications Dose Ordered Sig/Iris Route Start Time Stop Time Status Last Admin Dose Admin Iohexol 100 ml ONCE ONCE IV 07/12/22 17:30 07/12/22 17:31 DC 07/12/22 20:46 80 ML Lactated Ringer's 1,000 ml @ 0 mls/hr Q0M ONCE IV 07/12/22 20:00 07/12/22 20:01 DC 07/12/22 20:07 0 MLS/HR Naloxone HCl 0.4 mg ONCE ONCE IV 07/12/22 17:15 07/12/22 17:16 DC 07/12/22 17:35 0.4 MG Sodium Chloride 100 ml ONCE ONCE IV 07/12/22 17:30 07/12/22 17:31 DC 07/12/22 20:46 80 ML (VIN PARISH DO) Vital Signs/I&O 07/12/22 07/12/22 16:57 19:34 Pulse 63 71 Resp 20 16 B/P (MAP) 139/73 (95) 161/93 (115) Pulse Ox 92 98 O2 Delivery Room Air Nasal Cannula O2 Flow Rate 2.00 (VIN PARISH DO) Vital Signs/I&O Capillary Refill : Less Than 3 Seconds (SABINO WHITTINGTON DO) Blood Pressure Mean: 95 Progress Note : Progress Note 1800-ASSUMED CARE OF PT FROM DR. WHITTINGTON AT SHIFT CHANGE. ALL STUDIES PENDING VITALS STABLE NO DETERIORATION IN PT'S CONDITION DURING ER STAY PT REMAINS VERY SOMNOLENT, BUT DOES ROUSE BRIEFLY. SHE DOES SEEM TO BE SOMEWHAT CONFUSED TO SITUATION, AND IS NOT ABLE TO ANSWER QUESTIONS RELIABLY AT THIS TIME. SHE IS ALSO NOT ABLE TO FOLLOW COMMANDS AT THIS TIME. SHE IS PROFOUNDLY WEAK WELL. AND ANOTHER FEMALE FAMILY MEMBER ARE HERE WITH PT AND APPEAR TO UNDERSTAND, AND GIVE ALL INFORMATION REGARDING PT'S CONDITION THEY STATE THAT PT HAS HISTORY OF BREAST CANCER AT LEAST 30 YEARS AGO, AND IS CURRENTLY BEING TREATED BY DR. BRINK FOR C.L.L. --LAST VISIT WAS SEVERAL MONTHS AGO. DISCUSSED CODE STATUS WITH AND FEMALE FAMILY MEMBER, AND THEY REPORT THAT PT IS DNR/DNI. ALSO DISCUSSED TEST RESULTS, NEED FOR ADMIT, AND THEY ARE AGREEABLE TO PLAN REVIEWED PRIOR RECORDS (VIN PARISH DO) Diagnostic Imaging Comments CXR--PER RADIOLOGIST REPORT AT 1845 FINDINGS: No focal infiltrate, effusion or pneumothorax. There is likely scarring in the left base laterally, stable. No free air beneath the diaphragms. IMPRESSION: Stable chest. CT HEAD--PER RADIOLOGIST REPORT AT 1845 COMPARISON: Head CT 09/04/2020 as well as brain MRI performed in 2018. FINDINGS: Since the comparison studies there are multiple lytic well-demarcated calvarial lesions, bilaterally, numbering about 20, suspicious for a metastatic disease or process such as multiple myeloma. No suspicious sclerotic lesion. Some increased cerebral cortical atrophy without cat hydrocephalus, new from comparison. There is a nonacute area of encephalomalacia in the inferomedial right occipital lobe, likely a remote infarct. No sulcal effacement. No findings of cerebral edema. No feature to suggest acute ischemia. There is progressive periventricular white matter small vessel disease. There is no mastoid effusion. The orbits and paranasal sinuses nonacute. There are no findings to suggest an intra-axial brain mass. Two of the dominant left frontal lytic calvarial lesions are through the inner table of the skull and extend into the extra-axial space. No resultant mass effect. IMPRESSION: 1. Multiple new lytic calvarial lesions suspect for neoplastic infiltration. Two of the left lesions anteriorly are through the inner table of the calvarium and extend into the extra-axial space along the frontal convexity where they result in no mass effect, shift, edema or herniation. 2. Development of nonacute encephalomalacia of inferomedial right occipital lobe, likely previous ischemic insult. 3. Progressive atrophy and white matter disease without hydrocephalus. CT ABDOMEN / PELVIS--PER RADIOLOGIST REPORT AT 9 COMPARISON: 03/15/2020. FINDINGS: There are tiny dependent, nonloculated pleural effusions and a small pericardial effusion partially visualized. The latter measures maximal 9 mm along the posterior left heart border. The pleural fluid maximal 1 cm on the left. There are new tiny epicardial mediastinal lymph nodes in the lower chest on the right, measuring maximal 9 mm diameter. No basilar soft tissue density in the lung mass. There is some dependent bibasilar atelectasis. Liver density and enhancement is heterogeneous and suspicious for multiple tiny liver masses which can be best appreciated in the coronal reconstructions. The largest lesion is posteriorly in the right hepatic lobe measuring 2.9 cm. No bile duct dilatation. Tiny stones layer dependently within the gallbladder but no feature of acute cholecystitis. Since the prior, there is new periaortic retroperitoneal adenopathy, largest aortocaval node measuring 2.5 x 1.9 cm. There is a new large left inguinal mass measuring 3.1 x 2.7 cm. A small right inguinal lymph node is not pathologically enlarged measuring 9 x 6 mm. There is a left pelvic sidewall elongated lymph node, new, measuring 2.1 x 0.9 cm. The distal right external iliac lymph node elongated measured 1.6 x 1.0 cm. There is a normal appendix. There is no bowel obstruction. There is however elevated colonic fecal loading throughout the large bowel to the rectal vault, distended to measure 7 cm transverse. No small bowel dilatation. The urinary bladder unremarkable. No identifiable adnexal lesion. No pneumatosis. No free gas. There is aortoiliac and mesenteric atherosclerotic vascular calcifications. There is no feature of acute end organ ischemia. A chronic T12 superior endplate compression deformity is stable. There is severe spondylosis at L3-L4, chronic. The right hip is postsurgical. There are several small scattered lytic foci within multiple thoracolumbar vertebral bodies, new from previous. No pathological fracture. IMPRESSION: 1. Adverse changes with new abdominal retroperitoneal and pelvic sidewall as well as left inguinal lymphadenopathy with a faint lytic foci in multiple vertebral bodies without pathological fracture and suspicion for multifocal hepatic metastatic disease as new findings from prior. 2. Rectal constipation without cat bowel obstruction. Low-density lesion in lower pole right kidney may be complex cyst or solid measuring 15 mm. Normal spleen size, nonfocal aside from its a typical heterogeneous perfusion at this phase of scanning. 3. A suspected primary malignancy was not revealed. Reviewed: Reviewed by Me (VIN PARISH DO) Departure Communication (Admissions) 2039--SPOKE WITH DR. BRINK, PT'S ONCOLOGIST. HE WILL SEE PT IN CONSULT. RECOMMENDATIONS NOTED 2045--SPOKE WITH DR. DAVEY, HOSPITALIST, ACCEPTS PT FOR ADMIT. (VIN PARISH DO) Impression Primary Impression: METASTATIC CANCER TO MULTIPLE SITES Additional Impressions: CLL (chronic lymphocytic leukemia) EXCESSIVE SOMNOLENCE Dehydration REMOTE HISTORY OF BREAST CANCER Hypercalcemia Hypomagnesemia Disposition: ADMITTED INPATIENT Condition: Stable Admissions Decision to Admit Reason: Admit from ER (General) Decision to Admit/Date: Jul 12, 2022 Time/Decision to Admit Time: 20:50 (VIN PARISH DO) Departure-Patient Inst. Referrals: CLIVE NEVAREZ MD (PCP/Family) Primary Care Physician SABINO WHITTINGTON DO Jul 12, 2022 17:14 VIN PARISH DO Jul 12, 2022 18:47
[2022-07-12] MEDS ORDERED: NALOXONE 0.4 MG/ML 1 ML (NARCAN) VIAL IV ONE (17:15)
[2022-07-12] MEDS ORDERED: HOLD METFORMIN - RECEIVED CONTRAST 20 ML VIAL IV SCH (17:30)
[2022-07-12] MEDS ORDERED: IOHEXOL 350 MG/ML 100 ML (OMNIPAQUE 350) VIAL IV ONE (17:30)
[2022-07-12] MEDS ORDERED: NS 100 ML (IVPB) BAG IV ONE (17:30)
[2022-07-12] MEDS: NS IV 500 ML 500 ML IV SCH ×3 (17:35→20:02)
[2022-07-12 17:40] LABS: BASOPHILS % (AUTO) 0 % (0-10); EOSINOPHILS % (AUTO) 0 % (0-10); HEMATOCRIT 36 % (35-52); HEMOGLOBIN 11.9 g/dL (11.5-16.0); LYMPHOCYTES # (AUTO) 2.4 10^3/uL (1.0-4.0); LYMPHOCYTES % (AUTO) 27 % (12-44); MEAN CORPUSCULAR HEMOGLOBIN 28 pg (25-34); MEAN CORPUSCULAR HGB CONC 33 g/dL (32-36); MEAN CORPUSCULAR VOLUME 85 fL (80-99); MEAN PLATELET VOLUME 9.8 fL (9.0-12.2); MONOCYTES # (AUTO) 0.5 10^3/uL (0.0-1.0); MONOCYTES % (AUTO) 6 % (0-12); NEUTROPHILS # (AUTO) 5.8 10^3/uL (1.8-7.8); NEUTROPHILS % (AUTO) 66 % (42-75); PLATELET COUNT 190 10^3/uL (130-400); WHITE BLOOD COUNT 8.7 10^3/uL (4.3-11.0)
[2022-07-12 17:57] LABS: ALBUMIN 3.5 GM/DL (3.2-4.5); POTASSIUM 3.7 MMOL/L (3.6-5.0)
[2022-07-12 17:58] LABS: CALCIUM 11.5 MG/DL (8.5-10.1)
[2022-07-12 17:59] LABS: TOTAL PROTEIN 7.5 GM/DL (6.4-8.2)
[2022-07-12 18:01] LABS: BILIRUBIN,TOTAL 0.7 MG/DL (0.1-1.0)
[2022-07-12 18:03] LABS: CREATININE SERUM 0.95 MG/DL (0.60-1.30)
--- NOTE | 2022-07-12 18:10 | Diagnostic Imaging Report ---
INDICATION: Hypoxia, somnolent study. COMPARISON: 07/08/2022. FINDINGS: No focal infiltrate, effusion or pneumothorax. There is likely scarring in the left base laterally, stable. No free air beneath the diaphragms. IMPRESSION: Stable chest. Dictated by: Dictated on workstation # [id number]
--- NOTE | 2022-07-12 18:41 | Diagnostic Imaging Report ---
PROCEDURE: CT head without contrast. TECHNIQUE: Multiple contiguous axial images were obtained through the brain without the use of intravenous contrast. Auto Exposure Controls were utilized during the CT exam to meet ALARA standards for radiation dose reduction. INDICATION: Somnolence. COMPARISON: Head CT 09/04/2020 as well as brain MRI performed in 2018. FINDINGS: Since the comparison studies there are multiple lytic well-demarcated calvarial lesions, bilaterally, numbering about 20, suspicious for a metastatic disease or process such as multiple myeloma. No suspicious sclerotic lesion. Some increased cerebral cortical atrophy without cat hydrocephalus, new from comparison. There is a nonacute area of encephalomalacia in the inferomedial right occipital lobe, likely a remote infarct. No sulcal effacement. No findings of cerebral edema. No feature to suggest acute ischemia. There is progressive periventricular white matter small vessel disease. There is no mastoid effusion. The orbits and paranasal sinuses nonacute. There are no findings to suggest an intra-axial brain mass. Two of the dominant left frontal lytic calvarial lesions are through the inner table of the skull and extend into the extra-axial space. No resultant mass effect. IMPRESSION: 1. Multiple new lytic calvarial lesions suspect for neoplastic infiltration. Two of the left lesions anteriorly are through the inner table of the calvarium and extend into the extra-axial space along the frontal convexity where they result in no mass effect, shift, edema or herniation. 2. Development of nonacute encephalomalacia of inferomedial right occipital lobe, likely previous ischemic insult. 3. Progressive atrophy and white matter disease without hydrocephalus. Dictated by: Dictated on workstation # [id number]
--- NOTE | 2022-07-12 19:48 | Diagnostic Imaging Report ---
PROCEDURE: CT abdomen and pelvis with contrast. TECHNIQUE: Multiple contiguous axial images were obtained through the abdomen and pelvis after administration of intravenous contrast. Auto Exposure Controls were utilized during the CT exam to meet ALARA standards for radiation dose reduction. All CT scans use one or more of the following dose optimizing techniques: automated exposure control, MA and/or KvP adjustment based on patient size and exam type or iterative reconstruction. INDICATION: Constipation. COMPARISON: 03/15/2020. FINDINGS: There are tiny dependent, nonloculated pleural effusions and a small pericardial effusion partially visualized. The latter measures maximal 9 mm along the posterior left heart border. The pleural fluid maximal 1 cm on the left. There are new tiny epicardial mediastinal lymph nodes in the lower chest on the right, measuring maximal 9 mm diameter. No basilar soft tissue density in the lung mass. There is some dependent bibasilar atelectasis. Liver density and enhancement is heterogeneous and suspicious for multiple tiny liver masses which can be best appreciated in the coronal reconstructions. The largest lesion is posteriorly in the right hepatic lobe measuring 2.9 cm. No bile duct dilatation. Tiny stones layer dependently within the gallbladder but no feature of acute cholecystitis. Since the prior, there is new periaortic retroperitoneal adenopathy, largest aortocaval node measuring 2.5 x 1.9 cm. There is a new large left inguinal mass measuring 3.1 x 2.7 cm. A small right inguinal lymph node is not pathologically enlarged measuring 9 x 6 mm. There is a left pelvic sidewall elongated lymph node, new, measuring 2.1 x 0.9 cm. The distal right external iliac lymph node elongated measured 1.6 x 1.0 cm. There is a normal appendix. There is no bowel obstruction. There is however elevated colonic fecal loading throughout the large bowel to the rectal vault, distended to measure 7 cm transverse. No small bowel dilatation. The urinary bladder unremarkable. No identifiable adnexal lesion. No pneumatosis. No free gas. There is aortoiliac and mesenteric atherosclerotic vascular calcifications. There is no feature of acute end organ ischemia. A chronic T12 superior endplate compression deformity is stable. There is severe spondylosis at L3-L4, chronic. The right hip is postsurgical. There are several small scattered lytic foci within multiple thoracolumbar vertebral bodies, new from previous. No pathological fracture. IMPRESSION: 1. Adverse changes with new abdominal retroperitoneal and pelvic sidewall as well as left inguinal lymphadenopathy with a faint lytic foci in multiple vertebral bodies without pathological fracture and suspicion for multifocal hepatic metastatic disease as new findings from prior. 2. Rectal constipation without cat bowel obstruction. Low-density lesion in lower pole right kidney may be complex cyst or solid measuring 15 mm. Normal spleen size, nonfocal aside from its a typical heterogeneous perfusion at this phase of scanning. 3. A suspected primary malignancy was not revealed. Dictated by: Dictated on workstation # [id number]
[2022-07-12 19:54] LABS: MAGNESIUM 1.2 MG/DL (1.6-2.4)
[2022-07-12] MEDS ORDERED: LACTATED RINGERS 1,000 ML IV ONE (20:00)
[2022-07-12] MEDS ORDERED: LIDOCAINE UROJET 2% GEL 10 ML PKG TOP ONE (20:00)
[2022-07-12 20:32] LABS: BILIRUBIN,URINE NEGATIVE (NEGATIVE); CLARITY,URINE CLEAR; COLOR,URINE YELLOW; GLUCOSE, URINE (UA) NEGATIVE (NEGATIVE); KETONES,URINE NEGATIVE (NEGATIVE); LEUKOCYTE ESTERASE ,URINE NEGATIVE (NEGATIVE); NITRITE,URINE NEGATIVE (NEGATIVE); PH,URINE 6.5 (5-9); PROTEIN,URINE NEGATIVE (NEGATIVE)
[2022-07-12 21:04] LABS: AMORPHOUS SEDIMENT,UR MOD AMOR URATES /LPF; BACTERIA,URINE TRACE /HPF; WBC,URINE 0-2 /HPF
[2022-07-12 22:49] VITALS: BP 188/83
[2022-07-12] MEDS ORDERED: ONDANSETRON 4 MG/2 ML (SDV) Z0FRAN IV PRN (23:00)
[2022-07-12] MEDS: D5 1/2 NS W/KCL 20 MEQ/L 1,000 ML IV SCH (23:25)
[2022-07-13] VITALS (7 sets, daily range): BP systolic 150–195; BP diastolic 66–92
[2022-07-13] MEDS ORDERED: PAMIDRONATE INJECTION 60 MG in NS (IVPB) 250 ML IV ONE ×2 (02:00→10:00)
[2022-07-13] MEDS: D5 1/2 NS W/KCL 20 MEQ/L 1,000 ML IV SCH ×5 (04:23→23:28)
[2022-07-13 06:03] LABS: BASOPHILS # (AUTO) 0.1 10^3/uL (0.0-0.1); BASOPHILS % (AUTO) 1 % (0-10); EOSINOPHILS # (AUTO) 0.1 10^3/uL (0.0-0.3); EOSINOPHILS % (AUTO) 1 % (0-10); HEMATOCRIT 34 % (35-52); HEMOGLOBIN 10.8 g/dL (11.5-16.0); LYMPHOCYTES # (AUTO) 2.7 10^3/uL (1.0-4.0); LYMPHOCYTES % (AUTO) 31 % (12-44); MEAN CORPUSCULAR HEMOGLOBIN 28 pg (25-34); MEAN CORPUSCULAR HGB CONC 32 g/dL (32-36); MEAN CORPUSCULAR VOLUME 87 fL (80-99); MEAN PLATELET VOLUME 9.9 fL (9.0-12.2); MONOCYTES # (AUTO) 0.7 10^3/uL (0.0-1.0); MONOCYTES % (AUTO) 8 % (0-12); NEUTROPHILS # (AUTO) 5.3 10^3/uL (1.8-7.8); NEUTROPHILS % (AUTO) 60 % (42-75); PLATELET COUNT 166 10^3/uL (130-400); WHITE BLOOD COUNT 8.9 10^3/uL (4.3-11.0)
[2022-07-13 06:29] LABS: BILIRUBIN,TOTAL 0.7 MG/DL (0.1-1.0); CALCIUM 10.3 MG/DL (8.5-10.1); CREATININE SERUM 0.87 MG/DL (0.60-1.30); POTASSIUM 3.8 MMOL/L (3.6-5.0); TOTAL PROTEIN 6.9 GM/DL (6.4-8.2)
[2022-07-13] MEDS ORDERED: PAMIDRONATE 90 MG/10 ML (AREDIA) IV ONE (09:45)
--- NOTE | 2022-07-13 11:20 | History & Physical-Hospitalist ---
History of Present Illness HPI/Chief Complaint Patient is an 81-year-old female with past medical history of CLL who presented to the emergency department due to decreased mentation and constipation. She was seen in the emergency room last week for somnolence and was able to be discharged home after being diagnosed with pneumonia and started on antibiotics. She has had decreased oral intake and has not had a bowel movement in 3 days prompting evaluation. In the ER basic labs were done and revealed hypercalcemia of 11.9. Because of her constipation and somnolence a CT head and CT abdomen pelvis were ordered both revealed findings concerning for m etastatic disease as described below. She was admitted for further management. This morning she awakens easily when spoken to but asked to sleep. She states "I just like to sleep." There is no family at bedside. Source: patient Exam Limitations: clinical condition Date Seen 07/13/22 Time Seen by a Provider: 10:40 Attending Physician Elver Carmona MD PCP Admitting Physician: Otoniel Mckeon MD Attending Physician: Otoniel Mckeon MD Referring Physician Date of Admission Jul 12, 2022 at 22:30 Home Medications & Allergies Home Medications Reviewed patient Home Medication Reconciliation performed by pharmacy medication reconciliations security systems technician and/or nursing. Patients Allergies have been reviewed. Allergies Allergies Coded Allergies No Known Drug Allergies (Oorbvelz23/24/16) Past Bhyiijd-Mgxsjs-Tughqm Hx Patient Social History Tobacco Use?: No Use of E-Cig and/or Vaping dev: No Substance use?: No Alcohol Use?: No Pt feels they are or have been: No Immunizations Up To Date Date of Influenza Vaccine: Feb 23, 2020 First/Initial COVID19 Vaccinat: 2020 Second COVID19 Vaccination Nader: 2020 Tetanus Booster (TDap): Unknown Hepatitis A: No Hepatitis B: No Date of Pneumonia Vaccine: Mar 11, 2015 Seasonal Allergies Seasonal Allergies: Yes Current Status status: No Advance Directives: No Communicates: Verbally Primary Language: Palauan Preferred Spoken Language: Palauan Past Medical History Surgeries: Breast, Coronary Stent, Orthopedic, Tonsillectomy, Vascular Surgery Pneumonia, Sleep Apnea, COPD Currently Using CPAP: No Currently Using BIPAP: No Coronary Artery Disease, Hypertension, Peripheral Vascular Dementia Sexually Transmitted Disease: No Gastroesophageal Reflux Arthritis Cataract Loss of Vision: Bilateral Hearing Impairment: Hard of Hearing Leukemia, Breast Anxiety, Depression Blood Disorders: No Adverse Reaction/Blood Tranf: No CLL Anemia of chronic disease CKD 4 Osteoarthritis HTN HLD COPD PVD Dementia Family Medical History Reviewed Nursing Family Hx FHx: gastric ulcer 19 FATHER Stroke or transient ischemic attack in mother No Pertinent Family Hx Noncontributory Review of Systems Constitutional: see HPI Physical Exam Physical Exam Vital Signs Vital Signs - First Documented 07/12/22 07/12/22 07/12/22 16:57 19:34 22:49 Temp 36.4 Pulse 63 Resp 20 B/P (MAP) 139/73 (95) Pulse Ox 92 O2 Delivery Room Air O2 Flow Rate 2.00 Capillary Refill : Less Than 3 Seconds Height, Weight, BMI Height: 5'3.00" Weight: 197lbs. 0.0oz. 89.515287zz; 27.00 BMI Method:Estimated General Appearance: No Apparent Distress, Chronically ill, Other (drowsy) Respiratory: Lungs Clear, No Respiratory Distress Cardiovascular: Regular Rate, Rhythm, No Murmur Gastrointestinal: Normal Bowel Sounds, Non Tender, Soft Neurologic/Psychiatric: Other (drowsy but awakens when spoken to- asks to sleep) Results Results/Procedures Labs Laboratory Tests 07/14/22 05:34 07/15/22 05:23 Patient resulted labs reviewed. Imaging: Reviewed Imaging Report Imaging [facility], [place] NAME: RADHA NOVOA [facility] REC#: [id number] PT STATUS: REG ER : 1940 PHYSICIAN: SABINO WHITTINGTON DO ADMIT DATE: 07/12/22/ER Signed Date of Exam:07/12/22 CT HEAD WO PROCEDURE: CT head without contrast. TECHNIQUE: Multiple contiguous axial images were obtained through the brain without the use of intravenous contrast. Auto Exposure Controls were utilized during the CT exam to meet ALARA standards for radiation dose reduction. INDICATION: Somnolence. COMPARISON: Head CT 09/04/2020 as well as brain MRI performed in 2018. FINDINGS: Since the comparison studies there are multiple lytic well-demarcated calvarial lesions, bilaterally, numbering about 20, suspicious for a metastatic disease or process such as multiple myeloma. No suspicious sclerotic lesion. Some increased cerebral cortical atrophy without cat hydrocephalus, new from comparison. There is a nonacute area of encephalomalacia in the inferomedial right occipital lobe, likely a remote infarct. No sulcal effacement. No findings of cerebral edema. No feature to suggest acute ischemia. There is progressive periventricular white matter small vessel disease. There is no mastoid effusion. The orbits and paranasal sinuses nonacute. There are no findings to suggest an intra-axial brain mass. Two of the dominant left frontal lytic calvarial lesions are through the inner table of the skull and extend into the extra-axial space. No resultant mass effect. IMPRESSION: 1. Multiple new lytic calvarial lesions suspect for neoplastic infiltration. Two of the left lesions anteriorly are through the inner table of the calvarium and extend into the extra-axial space along the frontal convexity where they result in no mass effect, shift, edema or herniation. 2. Development of nonacute encephalomalacia of inferomedial right occipital lobe, likely previous ischemic insult. 3. Progressive atrophy and white matter disease without hydrocephalus. Dictated by: Dictated on workstation # [id number] Dict: 07/12/221809 Trans: 07/12/221933 [facility] [id number] Interpreted by: TRES VILLEGAS Electronically signed by: TRES VILLEGAS 07/12/221933 [facility], [place] NAME: NOVOA,RADHA K [facility] REC#: [id number] PT STATUS: REG ER : 1940 PHYSICIAN: SABINO WHITTINGTON DO ADMIT DATE: 07/12/22/ER Signed Date of Exam:07/12/22 CT ABDOMEN/PELVIS W PROCEDURE: CT abdomen and pelvis with contrast. TECHNIQUE: Multiple contiguous axial images were obtained through the abdomen and pelvis after administration of intravenous contrast. Auto Exposure Controls were utilized during the CT exam to meet ALARA standards for radiation dose reduction. All CT scans use one or more of the following dose optimizing techniques: automated exposure control, MA and/or KvP adjustment based on patient size and exam type or iterative reconstruction. INDICATION: Constipation. COMPARISON: 03/15/2020. FINDINGS: There are tiny dependent, nonloculated pleural effusions and a small pericardial effusion partially visualized. The latter measures maximal 9 mm along the posterior left heart border. The pleural fluid maximal 1 cm on the left. There are new tiny epicardial mediastinal lymph nodes in the lower chest on the right, measuring maximal 9 mm diameter. No basilar soft tissue density in the lung mass. There is some dependent bibasilar atelectasis. Liver density and enhancement is heterogeneous and suspicious for multiple tiny liver masses which can be best appreciated in the coronal reconstructions. The largest lesion is posteriorly in the right hepatic lobe measuring 2.9 cm. No bile duct dilatation. Tiny stones layer dependently within the gallbladder but no feature of acute cholecystitis. Since the prior, there is new periaortic retroperitoneal adenopathy, largest aortocaval node measuring 2.5 x 1.9 cm. There is a new large left inguinal mass measuring 3.1 x 2.7 cm. A small right inguinal lymph node is not pathologically enlarged measuring 9 x 6 mm. There is a left pelvic sidewall elongated lymph node, new, measuring 2.1 x 0.9 cm. The distal right external iliac lymph node elongated measured 1.6 x 1.0 cm. There is a normal appendix. There is no bowel obstruction. There is however elevated colonic fecal loading throughout the large bowel to the rectal vault, distended to measure 7 cm transverse. No small bowel dilatation. The urinary bladder unremarkable. No identifiable adnexal lesion. No pneumatosis. No free gas. There is aortoiliac and mesenteric atherosclerotic vascular calcifications. There is no feature of acute end organ ischemia. A chronic T12 superior endplate compression deformity is stable. There is severe spondylosis at L3-L4, chronic. The right hip is postsurgical. There are several small scattered lytic foci within multiple thoracolumbar vertebral bodies, new from previous. No pathological fracture. IMPRESSION: 1. Adverse changes with new abdominal retroperitoneal and pelvic sidewall as well as left inguinal lymphadenopathy with a faint lytic foci in multiple vertebral bodies without pathological fracture and suspicion for multifocal hepatic metastatic disease as new findings from prior. 2. Rectal constipation without cat bowel obstruction. Low-density lesion in lower pole right kidney may be complex cyst or solid measuring 15 mm. Normal spleen size, nonfocal aside from its a typical heterogeneous perfusion at this phase of scanning. 3. A suspected primary malignancy was not revealed. Dictated by: Dictated on workstation # [id number] Dict: 07/12/22 1820 Trans: 07/12/222001 [facility] [id number] Interpreted by: TRES VILLEGAS Electronically signed by: TRES VILLEGAS 07/12/222001 [facility] [place], [place] NAME: RADHA NOVOA [facility] REC#: [id number] PT STATUS: REG ER : 1940 PHYSICIAN: SABINO WHITTINGTON DO ADMIT DATE: 07/12/22/ER Signed Date of Exam:07/12/22 CHEST 1 VIEW, AP/PA ONLY INDICATION: Hypoxia, somnolent study. COMPARISON: 07/08/2022. FINDINGS: No focal infiltrate, effusion or pneumothorax. There is likely scarring in the left base laterally, stable. No free air beneath the diaphragms. IMPRESSION: Stable chest. Dictated by: Dictated on workstation # [id number] Dict: 07/12/221802 Trans: 07/12/221937 [facility] [id number] Interpreted by: TRES VILLEGAS Electronically signed by: TRES VILLEGAS 07/12/221937 Assessment/Plan Admission Diagnosis Altered mental status due to hypercalcemia Admission Status: Inpatient Order (span 2 midnights) Reason for Inpatient Admission: see below Assessment and Plan Altered mental status due to hypercalcemia Hypercalcemia of malignancy CLL Oncology consulted, appreciate recs Pamidronate ordered Trend levels Continue IVF SPEP pending Hypomagnesemia Am level pending Replace per protocol HTN HLD COPD PVD Dementia Diagnosis/Problems Diagnosis/Problems (1) Metastatic disease (2) CLL (chronic lymphocytic leukemia) Status: Acute (3) Hypercalcemia Status: Acute (4) Hypomagnesemia Status: Acute (5) Somnolence Status: Acute (6) HTN (hypertension) (7) CAD (coronary artery disease) OTONIEL MCKEON MD Jul 13, 2022 11:20
[2022-07-13] MEDS ORDERED: FLEET ENEMA ADULT 1 EA BTL PR PRN (11:30)
[2022-07-13] MEDS ORDERED: MAGNESIUM OXIDE (MAG-OX)400 MG TAB PO ONE ×2 (11:30→14:30)
[2022-07-13] MEDS ORDERED: SENNA W/DOCUSATE (SENOKOT S) TABLET PO ONE (11:30)
[2022-07-13] MEDS ORDERED: NS IV 500 ML 500 ML IV PRN (12:00)
[2022-07-13] MEDS: MAGNESIUM 1 GM/100 ML IVPB 100 ML IV SCH ×4 (12:20→15:49)
--- NOTE | 2022-07-13 14:25 | CONSULTATION REPORT ---
The patient is admitted to room 416. PRIMARY SURGEON: Dr. Elver Carmona. PHYSICIAN REQUESTING CONSULTATION: Dr. Chelsey Mckeon. IMPRESSION: 1. An 81-year-old female admitted with mental status changes. 2. Hypercalcemia of malignancy. The patient has history of CLL/SLL with prolymphocytic transformation requiring treatment in the past. She also has remote history of breast cancer approximately 30 years ago. 3. Dehydration and constipation due to hypercalcemia. 4. Obstructive sleep apnea. 5. Dementia. 6. Hypertension, hypercholesterolemia, and coronary artery disease. 7. History of subclavian thrombosis in 2020, requiring anticoagulation. RECOMMENDATIONS: 1. Aggressive hydration with normal saline. 2. Administer pamidronate 60 mg IV x1 dose for hypercalcemia. 3. Consider using BiPAP because of documented history of sleep apnea and the patient having a CPAP machine at home. 4. If her general condition improves in the next 24-48 hours, we will have a discussion with family whether to biopsy the left inguinal lymph node prior to discussing any treatments. 5. If the family decides not to proceed with any investigation or treatment, proceed with supportive care. 6. Consult social media director to arrange either help at home or an assisted care facility. BRIEF HISTORY: The patient is an 81-year-old female with history of chronic lymphocytic leukemia with multiple chromosomal abnormalities diagnosed in 2009 and was on surveillance initially. She was noted to have prolymphocytic transformation in early 2018 and proceeded with chemotherapy using chlorambucil and obinutuzumab regimen x6 cycles by late 2018. She had progression noted by 2019 with B symptoms and [ ] rituximab regimen for six cycles followed by [ ] for additional 6 months with a complete response. She was on surveillance for more than a year. She has a remote history of stage I breast cancer and underwent left modified radical mastectomy and axillary node dissection in 1991. She has worsening dementia. The patient was brought to the emergency room twice during the last week with worsening mental status changes. Initially, she was evaluated and discharged home, but within few days, she did come back and was admitted with hypercalcemia and mental status changes. Medical Oncology consultation was requested for concurrent care. PAST MEDICAL HISTORY: Significant for CLL diagnosed in 2009 with prolymphocytic transformation in 2019. Remote history of breast cancer in 1991 for which she underwent left modified radical mastectomy and axillary node dissection. She has left upper extremity lymphedema because of this. She has hypertension, hypercholesterolemia and coronary artery disease and follows with Dr. Hollins. She was diagnosed with sleep apnea and has a CPAP machine at home, but has not been using it regularly. She has history of subclavian venous thrombosis requiring anticoagulation in 2019. She has a history of osteoarthritis involving both the knee joints. She has had a right hip replacement. She has history of gastroesophageal reflux disease. She also has chronic kidney disease. PAST SURGICAL HISTORY: Right hip replacement, left modified radical mastectomy and axillary node dissection and epidermal cyst excised from the chest in 2021. Colonoscopy with polypectomies and cardiac catheterization with stent placements. FAMILY HISTORY: Significant for her maternal grandmother who had hypertension and stroke. Her mother also had stroke and hypertension. No significant malignancies in the family. SOCIAL HISTORY: The patient is to the current and lives near [place], [place]. She has two children, a daughter who lives in [place] and a son who lives in [facility]. No history of tobacco, alcohol or recreational drug use. REVIEW OF SYSTEMS: Unable to obtain review of systems as the patient is somnolent and most of the history was obtained from the records and the patient's . PHYSICAL EXAMINATION: GENERAL: Today showed an elderly female, somnolent and arousable, but not completely oriented. VITAL SIGNS: Temperature was 36.8, pulse rate of 68, respirations 20, blood pressure 150/85 with oxygen saturation of 98% on 2 liters of oxygen by nasal cannula. HEENT: Normocephalic, extraocular muscles intact, conjunctivae pink, oral mucosa dry. NECK: Supple with no JVD. No cervical or supraclavicular or axillary lymphadenopathy palpable. Large lymph node palpable in the left inguinal region. CHEST: Symmetrical. LUNGS: Fairly clear to auscultation without wheezes or rales. CARDIOVASCULAR: Fairly regular with occasional missed beats. Grade II holosystolic murmur heard. ABDOMEN: Obese, soft, nontender with no hepatosplenomegaly or other masses palpable. EXTREMITIES: Showed lymphedema in the left upper extremity. Rest of the extremities without edema. NEUROLOGIC: Unable to be completed as she is somnolent and would not follow instructions. The patient is moving all 4 extremities without focal motor deficits. CBC done yesterday at the emergency room showed white count of 8.7, hemoglobin 11.9, platelet count 190,000 with neutrophil count 5.8, lymphocyte count 2.4 and monocyte count 0.5. Chemistry panel done yesterday showed normal electrolytes. BUN was 22 and creatinine 0.95 with GFR 60 mL per minute. Measured calcium was 11.5 with albumin level of 3.5 and corrected calcium of 11.9. Liver function studies were within normal limits. Repeat chemistry panel done today morning showed corrected calcium of 11.1 and LDH level of 255. CT scan of the head done at the emergency room showed multiple new lytic calvarial lesions, suspect for neoplastic infiltration, progressive atrophy and white matter disease without hydrocephalus. CT scan of the abdomen and pelvis done at the emergency room showed new abdominal, retroperitoneal and pelvic sidewall as well as left inguinal lymphadenopathy, with faint lytic foci in multiple vertebral bodies without pathologic fracture. Suspicion for multifocal hepatic metastatic disease, which is new compared to previous scans. Constipation without bowel obstruction. Low density lesion, lower pole of right kidney, felt to be a complex cyst or solid measuring 15 mm. Spleen size was normal. Suspected primary malignancies not revealed. Thank you for allowing me to participate in this patient's care. I will follow the patient with you and make appropriate recommendations. Job ID: [id number] DocumentID: [id number] Dictated Date: 07/13/2022 13:23:30 Business Analysis Analyst Date: 07/13/2022 14:22:00 Dictated By: YOSI BRINK MD
[2022-07-13] MEDS: SENNA W/DOCUSATE (SENOKOT S) TABLET PO SCH (21:47)
[2022-07-14 03:38] VITALS: BP 151/82
[2022-07-14] MEDS: D5 1/2 NS W/KCL 20 MEQ/L 1,000 ML IV SCH ×3 (04:42→17:33)
[2022-07-14 05:56] LABS: HEMATOCRIT 32 % (35-52); HEMOGLOBIN 10.2 g/dL (11.5-16.0); MEAN CORPUSCULAR HEMOGLOBIN 28 pg (25-34); MEAN CORPUSCULAR HGB CONC 32 g/dL (32-36); MEAN CORPUSCULAR VOLUME 86 fL (80-99); MEAN PLATELET VOLUME 10.2 fL (9.0-12.2); PLATELET COUNT 155 10^3/uL (130-400); WHITE BLOOD COUNT 8.5 10^3/uL (4.3-11.0)
[2022-07-14 06:12] LABS: CALCIUM 9.6 MG/DL (8.5-10.1); CREATININE SERUM 0.79 MG/DL (0.60-1.30); MAGNESIUM 1.4 MG/DL (1.6-2.4); PHOSPHORUS 2.1 MG/DL (2.3-4.7); POTASSIUM 3.8 MMOL/L (3.6-5.0)
[2022-07-14] MEDS: KCL 20 MEQ TAB (K-DUR) PO SCH (06:16)
[2022-07-14] MEDS: POTASSIUM CL 10MEQ/50ML IVPB 50 ML IV SCH ×3 (06:16→08:46)
[2022-07-14] MEDS: MAGNESIUM 1 GM/100 ML IVPB 100 ML IV SCH ×7 (06:18→11:28)
[2022-07-14] MEDS: POTASSIUM BICARB 20 MEQ (EFFER-K) TABLET PO SCH (06:18)
[2022-07-14] MEDS: SENNA W/DOCUSATE (SENOKOT S) TABLET PO SCH ×2 (07:44→21:28)
[2022-07-14 07:56] VITALS: BP 170/87
[2022-07-14] MEDS ORDERED: POTASSIUM BICARB 20 MEQ (EFFER-K) TABLET PO ONE (08:00)
[2022-07-14] MEDS ORDERED: MAGNESIUM 1 GM/100 ML IVPB 100 ML IV SCH ×2 (09:15→09:30)
[2022-07-14 12:00] VITALS: BP 176/84
[2022-07-14] MEDS ORDERED: MEMA10TA57 PO (13:25)
[2022-07-14] MEDS ORDERED: CLC600T PO (13:25)
[2022-07-14] MEDS ORDERED: FERR325T18 PO (13:25)
[2022-07-14] MEDS ORDERED: DONE5TAB30 PO (13:25)
[2022-07-14] MEDS ORDERED: AZIT250T12 PO (13:25)
[2022-07-14] MEDS ORDERED: BUSP5TAB59 PO (13:25)
[2022-07-14] MEDS: ENOXAPARIN 60 MG/0.6 ML (LOVENOX) SYR SC SCH ×2 (15:14→23:42)
[2022-07-14 15:23] VITALS: BP 186/83
[2022-07-14 19:07] VITALS: BP 156/75
[2022-07-15] VITALS (7 sets, daily range): BP systolic 141–177; BP diastolic 72–99
[2022-07-15 06:10] LABS: POTASSIUM 3.9 MMOL/L (3.6-5.0)
[2022-07-15 06:11] LABS: CALCIUM 8.7 MG/DL (8.5-10.1)
[2022-07-15 06:15] LABS: PHOSPHORUS 2.6 MG/DL (2.3-4.7)
[2022-07-15 06:16] LABS: CREATININE SERUM 0.73 MG/DL (0.60-1.30)
[2022-07-15] MEDS: POTASSIUM CL 10MEQ/50ML IVPB 50 ML IV SCH (06:18)
[2022-07-15 06:19] LABS: MAGNESIUM 1.7 MG/DL (1.6-2.4)
[2022-07-15] MEDS: KCL 20 MEQ TAB (K-DUR) PO SCH (06:19)
[2022-07-15] MEDS: POTASSIUM BICARB 20 MEQ (EFFER-K) TABLET PO SCH (06:19)
[2022-07-15] MEDS: MAGNESIUM 1 GM/100 ML IVPB 100 ML IV SCH ×5 (06:21→11:26)
[2022-07-15] MEDS ORDERED: POTASSIUM BICARB 20 MEQ (EFFER-K) TABLET PO ONE (06:30)
[2022-07-15] MEDS: SENNA W/DOCUSATE (SENOKOT S) TABLET PO SCH ×2 (08:46→20:11)
[2022-07-15] MEDS: ENOXAPARIN 60 MG/0.6 ML (LOVENOX) SYR SC SCH ×2 (10:05→23:22)
--- NOTE | 2022-07-15 10:14 | Physical Therapy Evaluation ---
PT Evaluation-General Medical Diagnosis Admission Date Jul 12, 2022 at 22:30 Medical Diagnosis: CLL/dehydration Onset Date: Jul 12, 2022 Therapy Diagnosis Therapy Diagnosis: generalized weakness/debility Height/Weight Height (Feet): 5 Height (Inches): 3.00 Weight (Pounds): 197 Weight (Ounces): 0.0 Precautions Precautions/Isolations: Fall Prevention, Standard Precautions, Pressure Ulcer Referral Physician: Monica Reason for Referral: Evaluation/Treatment Medical History Pertinent Medical History: CAD, COPD, Dementia, HTN, PVD Additional Medical History leukemia/breast cancer Current History EMS secondary to constipation and not drinking Reviewed History: Yes Prior Prior Level of Function SCALE: Activities may be completed with or without assistive devices. 4-Ifvbbywazp-hownkqg completes the activity by him/herself with no assistance from a helper. 5-Set-up or Clean-up Assistance-helper sets up or cleans up; patient completes activity. [place] assists only prior to or following the activity. 4-Supervision or Touching Assistance-helper provides verbal cues and/or to uching/steadying and/or contact guard assistance as patient completes activity. Assistance may be provided throughout the activity or intermittently. 3-Partial/Moderate Assistance-helper does LESS THAN HALF the effort. [place] lifts, holds or supports trunk or limbs, but provides less than half the effort. 2-Substantial/Maximal Assistance-helper does MORE THAN HALF the effort. [place] lifts or holds trunk or limbs and provides more than half the effort. 8-Zeggfpbfq-ewbxcz does ALL the effort. Patient does none of the effort to complete the activity. Or, the assistance of 2 or more helpers is required for the patient to complete the activity. If activity was not attempted, code reason: 7-Patient Refused. 9-Not Applicable-not attempted and the patient did not perform the activity before the current illness, exacerbation or injury. 10-Not Attempted due to Environmental Limitations-(lack of equipment, weather restraints, etc.). 88-Not Attempted due to Medical Conditions or Safety Concerns. unable to determine/family not present and patient has dementia PT Evaluation-Current Subjective Patient is in bed and agrees to PT. Objective Patient Orientation: Confused Attachments: Oxygen, Fernandez Catheter, IV ROM/Strength ROM Lower Extremities bilateral LE WFL Strength Lower Extremities no formal testing/grossly 3/5 bilateral LE Integumentary/Posture Bowel Incontinence: Yes Bladder Incontinence: Fernandez Cath Neuromuscular (Tone, Coordination, Reflexes) diminished with all Sensory Vision: Functional Hearing: Functional Transfers Sit to Lying (QC): 2 Lying to Sitting/Side of Bed(Q: 2 Sit to Stand (QC): 3 Toilet Transfer (QC): 3 Gait Mode of Locomotion: Both Anticipated Mode of Locomotion: Both Balance Sitting Static: Fair Sitting Dynamic: Fair Standing Static: Poor Standing Dynamic: Poor Assessment/Needs Patient incontinent BM requiring assist of PTC to cleanse. Patient will be seen by skilled PT to address functional strength and mobility to improve current LOF. Patient has dementia and difficulty with following direction. Rehab Potential: Guarded PT Judo Teacher Goals Judo Teacher Goals PT Judo Teacher Goals Time Frame: Jul 26, 2022 Roll Left & Right (QC): 4 Sit to Lying (QC): 4 Lying-Sitting on Side/Bed(QC): 4 Sit to Stand (QC): 4 Chair/Wto-sz-Pwzeh Xfer(QC): 4 Toilet Transfer (QC): 4 Walk 10 feet (QC): 3 Walk 50ft with 2 Turns (QC): 3 PT Plan Problem List Problem List: Activity Tolerance, Functional Strength, Safety, Balance, Gait, Transfer, Bed Mobility Treatment/Plan Treatment Plan: Continue Plan of Care Treatment Plan: Bed Mobility, Education, Functional Activity Johan, Functional Strength, Gait, Safety, Therapeutic Exercise, Transfers Treatment Duration: Jul 26, 2022 Frequency: 5 times per week Estimated Hrs Per Day: .25 hour per day Time Time In: 925 Time Out: 938 DATE: Jul 15, 2022 Total Billed Treatment Time: 13 Total Billed Treatment 1 visit [facility] 13 min MERI DÍAZ PT Jul 15, 2022 10:14
--- NOTE | 2022-07-15 10:36 | Occ Therapy Progress Note ---
Therapy Progress Note OT order received, patient with Dr Posada, OT will return for evaluation MARTHA LYMAN OT Jul 15, 2022 10:36
[2022-07-15] MEDS ORDERED: CATHETER FLUSH 10 ML SYR IVP PRN (10:45)
[2022-07-15] MEDS: APAP 325 MG/10.15 ML LIQ (TYLENOL) UDC PO PRN ×2 (10:48→23:22)
--- NOTE | 2022-07-15 12:17 | Progress Note - Hospitalist ---
Subjective HPI/CC On Admission Date Seen by Provider: Jul 14, 2022 Patient is an 81-year-old female with past medical history of CLL who presented to the emergency department due to decreased mentation and constipation. She was seen in the emergency room last week for somnolence and was able to be discharged home after being diagnosed with pneumonia and started on antibiotics. She has had decreased oral intake and has not had a bowel movement in 3 days prompting evaluation. In the ER basic labs were done and revealed hypercalcemia of 11.9. Because of her constipation and somnolence a CT head and CT abdomen pelvis were ordered both revealed findings concerning for metastatic disease as described below. She was admitted for further management. This morning she awakens easily when spoken to but asked to sleep. She states "I just like to sleep." There is no family at bedside. Subjective/Events-last exam LATE ENTRY NOTE Pt slightly more awake today. No complaints. Returned to room later in the day to talk with her . He states she is nearing her baseline and they are waiting to here from Dr Last regarding potential workup Objective Exam Vital Signs Vital Signs Date Time Temp Pulse Resp B/P (MAP) Pulse Ox O2 Delivery O2 Flow Rate FiO2 07/15/22 11:16 36.6 81 18 141/72 (95) 97 Nasal Cannula 2.50 Capillary Refill : Less Than 3 Seconds General Appearance: No Apparent Distress, Chronically ill Respiratory: Lungs Clear Cardiovascular: Regular Rate, Rhythm Neurologic/Psychiatric: Alert, Oriented x3 (oriented to person only- mumbles) Results/Procedures Lab Laboratory Tests 07/15/22 05:23 Patient resulted labs reviewed. Imaging: Reviewed Imaging Report Assessment/Plan Assessment and Plan Assess & Plan/Chief Complaint Altered mental status due to hypercalcemia Hypercalcemia of malignancy CLL Oncology consulted, appreciate recs Improved with pamidronate DC IVF SPEP pending Discussed with Dr Last who plans to meet with and children when they are all in town Hypomagnesemia Replace per protocol HTN HLD COPD PVD Dementia Diagnosis/Problems Diagnosis/Problems (1) Metastatic disease (2) CLL (chronic lymphocytic leukemia) Status: Acute (3) Hypercalcemia Status: Acute (4) Hypomagnesemia Status: Acute (5) Somnolence Status: Acute (6) HTN (hypertension) (7) CAD (coronary artery disease) OTONIEL DAVEY MD Jul 15, 2022 12:17
--- NOTE | 2022-07-15 12:25 | Progress Note - Hospitalist ---
Subjective HPI/CC On Admission Date Seen by Provider: Jul 15, 2022 Patient is an 81-year-old female with past medical history of CLL who presented to the emergency department due to decreased mentation and constipation. She was seen in the emergency room last week for somnolence and was able to be discharged home after being diagnosed with pneumonia and started on antibiotics. She has had decreased oral intake and has not had a bowel movement in 3 days prompting evaluation. In the ER basic labs were done and revealed hypercalcemia of 11.9. Because of her constipation and somnolence a CT head and CT abdomen pelvis were ordered both revealed findings concerning for metastatic disease as described below. She was admitted for further management. This morning she awakens easily when spoken to but asked to sleep. She states "I just like to sleep." There is no family at bedside. Subjective/Events-last exam Pt reports doing better today. More alert. Still mumbles but able to answer more questions today. Complains of her abd being sore and asks for Tylenol. Objective Exam Vital Signs Vital Signs Date Time Temp Pulse Resp B/P (MAP) Pulse Ox O2 Delivery O2 Flow Rate FiO2 07/15/22 11:16 36.6 81 18 141/72 (95) 97 Nasal Cannula 2.50 Capillary Refill : Less Than 3 Seconds General Appearance: No Apparent Distress, Chronically ill Respiratory: Lungs Clear, No Respiratory Distress Cardiovascular: Regular Rate, Rhythm, No Murmur Neurologic/Psychiatric: Alert, Other (oriented to person, mumbles ) Results/Procedures Lab Laboratory Tests 07/15/22 05:23 Patient resulted labs reviewed. Imaging: Reviewed Imaging Report Assessment/Plan Assessment and Plan Assess & Plan/Chief Complaint Altered mental status due to hypercalcemia Hypercalcemia of malignancy CLL Oncology consulted, appreciate recs Improved with pamidronate, stable SPEP pending still Discussed with Dr Last yesterday who plans to meet with and children when they are all in town Hypomagnesemia Replace per protocol HTN HLD COPD PVD Dementia No acute needs PT/OT Diagnosis/Problems Diagnosis/Problems (1) Metastatic disease (2) CLL (chronic lymphocytic leukemia) Status: Acute (3) Hypercalcemia Status: Acute (4) Hypomagnesemia Status: Acute (5) Somnolence Status: Acute (6) HTN (hypertension) (7) CAD (coronary artery disease) OTONIEL DAVEY MD Jul 15, 2022 12:25
--- NOTE | 2022-07-15 15:32 | Occupational Therapy Eval ---
OT Evaluation-General/PLF Medical Diagnosis Admission Date Jul 12, 2022 at 22:30 Medical Diagnosis: CLL/dehydration Onset Date: Jul 12, 2022 Therapy Diagnosis Therapy Diagnosis: weakness, confusion Height/Weight Height (Feet): 5 Height (Inches): 3.00 Weight (Pounds): 197 Weight (Ounces): 0.0 Precautions Precautions/Isolations: Fall Prevention, Standard Precautions, Pressure Ulcer Weight Bear Status Weight Bearing Restriction: Weight Bearing/Tolerated Referral Physician: Monica Referral Reason: Evaluation/Treatment Medical History Pertinent Medical History: CAD, COPD, Dementia, HTN, PVD Current History Patient is an 81-year-old female with past medical history of CLL who presented to the emergency department due to decreased mentation and constipation. She was seen in the emergency room last week for somnolence and was able to be discharged home after being diagnosed with pneumonia and started on antibiotics. She has had decreased oral intake and has not had a bowel movement in 3 days prompting evaluation. Social History Home: Single Level Current Living Status: Spouse (spouse is presnt) ADL-Prior Level of Function SCALE: Activities may be completed with or without assistive devices. 8-Ithifkvppp-tpbjzvv completes the activity by him/herself with no assistance from a helper. 5-Set-up or Clean-up Assistance-helper sets up or cleans up; patient completes activity. [place] assists only prior to or following the activity. 4-Supervision or Touching Assistance-helper provides verbal cues and/or touching/steadying and/or contact guard assistance as patient completes activity. Assistance may be provided throughout the activity or intermittently. 3-Partial/Moderate Assistance-helper does LESS THAN HALF the effort. [place] lifts, holds or supports trunk or limbs, but provides less than half the effort. 2-Substantial/Maximal Assistance-helper does MORE THAN HALF the effort. [place] lifts or holds trunk or limbs and provides more than half the effort. 6-Dmlymmwux-sbhlfc does ALL the effort. Patient does none of the effort to com plete the activity. Or, the assistance of 2 or more helpers is required for the patient to complete the activity. If activity was not attempted, code reason: 7-Patient Refused. 9-Not Applicable-not attempted and the patient did not perform the activity before the current illness, exacerbation or injury. 10-Not Attempted due to Environmental Limitations-(lack of equipment, weather restraints, etc.). 88-Not Attempted due to Medical Conditions or Safety Concerns. Self Care: Needed Some Help Functional Cognition: Needed Some Help DME/Equipment Comments per spouse, patient mathis snot use walker, ambulation bobath techniques and minimal ambulation at home Drive Self: No OT Current Status Subjective Sleepy and mumbles, spouse in room to answer questions Mental Status/Objective Patient Orientation: Confused, Eyes Open, Mumbles Attachments: IV Current Upper Extremity ROM PROM fully, AROM WFLs of patient activity Upper Extremity Strength 3/5 ADL-Treatment Eating (QC): 7 (declined food/drink) Oral Hygiene (QC): 1 Shower/Bathe Self (QC): 88 Upper Body Dressing (QC): 1 Lower Body Dressing (QC): 1 (One person to assist w/ stand and transfer 2nd person for garments) On/Off Footwear (QC): 1 Toileting Hygiene (QC): 1 spouse reports assistance for all ADLS at home Education OT Patient Education: Instructions to caregiver, Modified ADL techniques, Purpose of tx/functional activities, Reviewed precautions, Rehab process, Safety issues, Transfer techniques Teaching Recipient: Patient, Significant Other (spouse) Teaching Methods: Demonstration, Discussion Response to Teaching: Verbalize Understanding, Reinforcement Needed OT Controls Engineer Goals Controls Engineer Goals Eating (QC): 3 Oral Hygiene (QC): 3 Toileting Hygiene (QC): 3 Shower/Bathe Self (QC): 3 Upper Body Dressing (QC): 3 Lower Body Dressing (QC): 3 On/Off Footwear (QC): 3 1=Demonstrate adherence to instructed precautions during ADL tasks. 2=Patient will verbalize/demonstrate understanding of assistive devices/modifications for ADL. 3=Patient will improve strength/tolerance for activity to enable patient to perform ADL's. OT Education/Plan Problem List/Assessment Assessment: Decreased Activ Tolerance, Decreased Safety Aware, Decreased UE Strength, Dependent Transfers, Impaired Bed Mobility, Impaired Cognition, Impaired Coordination, Impaired Funct Balance, Impaired Self-Care Skills Discharge Recommendations Plan/Recommendations: Continue POC Therapy Discharge Recommendati: Post Acute OT Treatment Plan/Plan of Care Treatment,Training & Education: Yes Patient would benefit from OT for education, treatment and training to promote independence in ADL's, mobility, safety and/or upper extremity function for ADL's. Plan of Care: ADL Retraining, Caregiver Training, Concurrent Therapy, Functional Mobility, Group Exercise/Act as Ind, UE Funct Exercise/Act Treatment Duration: Jul 26, 2022 Frequency: 3 times per week (3-5 times per week) Estimated Hrs Per Day: .25 hour per day Agreement: Yes Rehab Potential: Guarded Time Start Time: 14:00 Stop Time: 14:17 DATE: Jul 15, 2022 Total Time Billed (hr/min): 17 Billed Treatment Time [facility] 17 min MARTHA LYMAN OT Jul 15, 2022 15:32
[2022-07-15] MEDS: D5 1/2 NS W/KCL 20 MEQ/L 1,000 ML IV SCH (17:56)
[2022-07-16 04:13] VITALS: BP 161/81
[2022-07-16 05:41] LABS: HEMATOCRIT 34 % (35-52); HEMOGLOBIN 10.8 g/dL (11.5-16.0); MEAN CORPUSCULAR HEMOGLOBIN 28 pg (25-34); MEAN CORPUSCULAR HGB CONC 32 g/dL (32-36); MEAN CORPUSCULAR VOLUME 86 fL (80-99); MEAN PLATELET VOLUME 9.9 fL (9.0-12.2); PLATELET COUNT 148 10^3/uL (130-400); WHITE BLOOD COUNT 6.9 10^3/uL (4.3-11.0)
[2022-07-16 06:08] LABS: CALCIUM 8.6 MG/DL (8.5-10.1); CREATININE SERUM 0.8 MG/DL (0.60-1.30); MAGNESIUM 1.7 MG/DL (1.6-2.4); POTASSIUM 3.9 MMOL/L (3.6-5.0)
[2022-07-16] MEDS: KCL 20 MEQ TAB (K-DUR) PO SCH (06:10)
[2022-07-16] MEDS: POTASSIUM CL 10MEQ/50ML IVPB 50 ML IV SCH (06:11)
[2022-07-16] MEDS: MAGNESIUM 1 GM/100 ML IVPB 100 ML IV SCH ×5 (06:12→11:02)
[2022-07-16] MEDS: POTASSIUM BICARB 20 MEQ (EFFER-K) TABLET PO SCH (06:13)
[2022-07-16 07:37] VITALS: BP 162/97
[2022-07-16] MEDS ORDERED: POTASSIUM BICARB 20 MEQ (EFFER-K) TABLET PO ONE (08:00)
[2022-07-16] MEDS: SENNA W/DOCUSATE (SENOKOT S) TABLET PO SCH ×2 (08:28→20:56)
--- NOTE | 2022-07-16 10:58 | Physical Therapy Daily Note ---
PT Daily Note-Current Subjective Patient lying supine in bed upon PT arrival, agreeable to treatment. Patient reports 0/10 pain currently Pain Section J - Health Conditions 1. Rarely or not at all 2. Occasionally 3. Frequently 4. Almost constantly 8. Unable to answer Pain Effect on Sleep: 1 Pain Interference with Therapy: 1 Pain Interference w/Day-to-Day: 1 Mental Status Patient Orientation: Person Transfers SCALE: Activities may be completed with or without assistive devices. 7-Nadkljypti-icujuts completes the activity by him/herself with no assistance from a helper. 5-Set-up or Clean-up Assistance-helper sets up or cleans up; patient completes activity. [place] assists only prior to or following the activity. 4-Supervision or Touching Assistance-helper provides verbal cues and/or touching/steadying and/or contact guard assistance as patient completes activity. Assistance may be provided throughout the activity or intermittently. 3-Partial/Moderate Assistance-helper does LESS THAN HALF the effort. [place] lifts, holds or supports trunk or limbs, but provides less than half the effort. 2-Substantial/Maximal Assistance-helper does MORE THAN HALF the effort. [place] lifts or holds trunk or limbs and provides more than half the effort. 0-Ioprnfpmp-tpujsj does ALL the effort. Patient does none of the effort to complete the activity. Or, the assistance of 2 or more helpers is required for the patient to complete the activity. If activity was not attempted, code reason: 7-Patient Refused. 9-Not Applicable-not attempted and the patient did not perform the activity be fore the current illness, exacerbation or injury. 10-Not Attempted due to Environmental Limitations-(lack of equipment, weather restraints, etc.). 88-Not Attempted due to Medical Conditions or Safety Concerns. Roll Left & Right (QC): 2 Sit to Lying (QC): 2 Lying to Sitting/Side of Bed(Q: 2 Sit to Stand (QC): 3 Chair/Ond-kp-Iqikn Xfer(QC): 2 Weight Bearing Right Lower Extremity: Right Full Weight Bearing Left Lower Extremity: Left Full Weight Bearing Gait Training Does the Patient Walk?: No and Walking Goal IS indicated Assessment Current Status: Fair Progress Patient tolerated treatment fair. She requires max A for all bed mobility and transfers except for sit to stand, moderate assistance. Patient is able to stand ~5 minutes with min/mod A from PT. Patient requires Max A for progression of LEs towards the chair. Patient in chair post treatment with all needs met, nursing notified, call light in hand and family in the room. PT Bomb Technician Goals Bomb Technician Goals PT Bomb Technician Goals Time Frame: Jul 26, 2022 Roll Left & Right (QC): 4 Sit to Lying (QC): 4 Lying-Sitting on Side/Bed(QC): 4 Sit to Stand (QC): 4 Chair/Loc-ps-Hsecv Xfer(QC): 4 Toilet Transfer (QC): 4 Walk 10 feet (QC): 3 Walk 50ft with 2 Turns (QC): 3 PT Plan Treatment/Plan Treatment Plan: Continue Plan of Care Treatment Plan: Bed Mobility, Education, Functional Activity Johan, Functional Strength, Gait, Safety, Therapeutic Exercise, Transfers Treatment Duration: Jul 26, 2022 Frequency: 5 times per week Estimated Hrs Per Day: .25 hour per day Safety Risks/Education Patient Education: Gait Training, Transfer Techniques Teaching Recipient: Patient, Family Teaching Methods: Demonstration, Discussion Response to Teaching: Reinforcement Needed Time Time In: 1019 Time Out: 1033 DATE: Jul 16, 2022 Total Billed Treatment Time: 14 Total Billed Treatment Visit, CLIVE CARLOS PT Jul 16, 2022 10:58
[2022-07-16] MEDS: ENOXAPARIN 60 MG/0.6 ML (LOVENOX) SYR SC SCH ×2 (11:02→22:00)
[2022-07-16 11:17] VITALS: BP 157/87
--- NOTE | 2022-07-16 11:17 | Occupational Ther Daily Note ---
OT Current Status-Daily Note Subjective Up in chair, family present, family report patient not eating unless fed by someone, not grasping utensils and patient reports food is getting stuck in roof of mouth Mental Status/Objective Patient Orientation: Person Attachments: IV ADL-Treatment Therapy Code Descriptions/Definitions Functional [place] Measure: 0=Not Assessed/NA 4=Minimal Assistance 1=Total Assistance 5=Supervision or Setup 2=Maximal Assistance 6=Modified [place] 3=Moderate Assistance 7=Complete IndependenceSCALE: Activities may be completed with or without assistive devices. 5-Oqqcqttsnp-eswiqja completes the activity by him/herself with no assistance from a helper. 5-Set-up or Clean-up Assistance-helper sets up or cleans up; patient completes activity. [place] assists only prior to or following the activity. 4-Supervision or Touching Assistance-helper provides verbal cues and/or touching/steadying and/or contact guard assistance as patient completes activity. Assistance may be provided throughout the activity or intermittently. 3-Partial/Moderate Assistance-helper does LESS THAN HALF the effort. [place] lifts, holds or supports trunk or limbs, but provides less than half the effort. 2-Substantial/Maximal Assistance-helper does MORE THAN HALF the effort. [place] lifts or holds trunk or limbs and provides more than half the effort. 5-Nrcspcbvk-aanytg does ALL the effort. Patient does none of the effort to complete the activity. Or, the assistance of 2 or more helpers is required for the patient to complete the activity. If activity was not attempted, code reason: 7-Patient Refused. 9-Not Applicable-not attempted and the patient did not perform the activity b efore the current illness, exacerbation or injury. 10-Not Attempted due to Environmental Limitations-(lack of equipment, weather restraints, etc.). 88-Not Attempted due to Medical Conditions or Safety Concerns. Eating (QC): 2 Oral Hygiene (QC): 1 Shower/Bathe Self (QC): 88 (confused) Upper Body Dressing (QC): 2 Lower Body Dressing (QC): 1 On/Off Footwear: 1 Toileting Hygiene (QC): 1 Toilet Transfer (QC): 1 Other Treatment Education to family to facilitate patient holding utensils while eating, sitting upright, OT will communicate w/ ST for screen Education OT Patient Education: Correct positioning, Disease process, Modified ADL techniques, Progress toward Goal/Update tx plan, Purpose of tx/functional activities, Reviewed precautions, Rehab process, Safety issues, Use of adapted equipment Teaching Recipient: Patient, Family Response to Teaching: Verbalize Understanding, Reinforcement Needed OT Prison Goals [place] Goals Eating (QC): 3 Oral Hygiene (QC): 3 Toileting Hygiene (QC): 3 Shower/Bathe Self (QC): 3 Upper Body Dressing (QC): 3 Lower Body Dressing (QC): 3 On/Off Footwear (QC): 3 1=Demonstrate adherence to instructed precautions during ADL tasks. 2=Patient will verbalize/demonstrate understanding of assistive devices/modifications for ADL. 3=Patient will improve strength/tolerance for activity to enable patient to perform ADL's. OT Education/Plan Problem List/Assessment Assessment: Decreased Activ Tolerance, Decreased Safety Aware, Decreased UE Strength, Impaired Cognition, Impaired Coordination, Impaired Funct Balance, Impaired Self-Care Skills Discharge Recommendations Plan/Recommendations: Continue POC Treatment Plan/Plan of Care Treatment,Training & Education: Yes Patient would benefit from OT for education, treatment and training to promote independence in ADL's, mobility, safety and/or upper extremity function for ADL 's. Plan of Care: ADL Retraining, Caregiver Training, Concurrent Therapy, Functional Mobility, Group Exercise/Act as Ind, UE Funct Exercise/Act Treatment Duration: Jul 26, 2022 Frequency: 3 times per week (3-5 times per week) Estimated Hrs Per Day: .25 hour per day Agreement: Yes Rehab Potential: Guarded Time Start Time: 10:31 Stop Time: 11:16 DATE: Jul 16, 2022 Total Time Billed (hr/min): 45 Billed Treatment Time ADL 3 45 min MARTHA LYMAN OT Jul 16, 2022 11:17
--- NOTE | 2022-07-16 11:25 | Progress Note - Hospitalist ---
Subjective HPI/CC On Admission Date Seen by Provider: Jul 16, 2022 Patient is an 81-year-old female with past medical history of CLL who presented to the emergency department due to decreased mentation and constipation. She was seen in the emergency room last week for somnolence and was able to be discharged home after being diagnosed with pneumonia and started on antibiotics. She has had decreased oral intake and has not had a bowel movement in 3 days prompting evaluation. In the ER basic labs were done and revealed hypercalcemia of 11.9. Because of her constipation and somnolence a CT head and CT abdomen pelvis were ordered both revealed findings concerning for metastatic disease as described below. She was admitted for further management. This morning she awakens easily when spoken to but asked to sleep. She states "I just like to sleep." There is no family at bedside. Subjective/Events-last exam Pt remains at baseline mentation. States she is resting her eyes. Denies any concerns. Denies pain. No family at bedside during first time in room. I did return to room around 940 to be involved with family meeting with Dr Lsat. Daughter and are there along with Cassy Palliative Care RN and Kayla, bedside. Family has elected to pursue biopsy before deciding to attempt treatment or go with hospice. They are both in agreement that they don't want her to suffer or be in pain. Objective Exam Vital Signs Vital Signs Date Time Temp Pulse Resp B/P (MAP) Pulse Ox O2 Delivery O2 Flow Rate FiO2 07/16/22 11:17 36.4 86 18 157/87 (110) 97 Nasal Cannula 2.50 Capillary Refill : Less Than 3 Seconds General Appearance: No Apparent Distress, WD/WN Respiratory: Lungs Clear, No Respiratory Distress Cardiovascular: Regular Rate, Rhythm, No Murmur Neurologic/Psychiatric: Alert, Other (oriented to self) Results/Procedures Lab Laboratory Tests 07/16/22 05:30 Patient resulted labs reviewed. Imaging: Reviewed Imaging Report Assessment/Plan Assessment and Plan Assess & Plan/Chief Complaint Altered mental status due to hypercalcemia Hypercalcemia of malignancy CLL Oncology consulted, appreciate recs Improved with pamidronate, stable SPEP pending still Discussed with Dr Last today and with family at above, plan for biopsy whil e inpatient Dr. Jimenez consulted, appreciate assistance Will look into NH placement Social Work consulted, appreciate recs A fib New onset, rate controlled Lovenox Telemetry Hypomagnesemia Replace per protocol HTN HLD COPD PVD Dementia No acute needs PT/OT DVT ppx: Lovenox Diagnosis/Problems Diagnosis/Problems (1) Metastatic disease (2) CLL (chronic lymphocytic leukemia) Status: Acute (3) Hypercalcemia Status: Acute (4) Hypomagnesemia Status: Acute (5) Somnolence Status: Acute (6) HTN (hypertension) (7) CAD (coronary artery disease) OTONIEL DAVEY MD Jul 16, 2022 11:25
--- NOTE | 2022-07-16 12:06 | Progress Note-Pre Operative ---
Pre-Operative Progress Note Date of Available H&P: Jul 16, 2022 Date H&P Reviewed: Jul 16, 2022 Time H&P Reviewed: 12:00 History & Physical: No changes noted Pre-Operative Diagnosis: malignant hypercalcemia and hx CLL GENE FRANCO MD Jul 16, 2022 12:06
--- NOTE | 2022-07-16 13:05 | Speech Therapy Progress Note ---
Therapy Progress Note Following a discussion with OT, the PAINTER AIRCRAFT contacted the patient's RN to see if ST services may be beneficial for the patient. ST requested an order be placed if services could be appropriately provided to assist in the patient's care. Thank you! GREG HARGROVE Jul 16, 2022 13:05
[2022-07-16] MEDS: D5 1/2 NS W/KCL 20 MEQ/L 1,000 ML IV SCH (14:26)
[2022-07-16 15:54] VITALS: BP 146/92
--- NOTE | 2022-07-16 17:01 | CONSULTATION REPORT ---
DATE OF SERVICE: 07/16/2022 ATTENDING PRIMARY CARE PHYSICIAN: Elver Carmona MD ADMITTING PHYSICIAN: Dr. Chelsey Mckeon. HISTORY OF PRESENT ILLNESS: The patient is an 81-year-old female who presented to the Emergency Department with decreased mentation as well as constipation. She had been seen in the emergency room 1 week previous and was somewhat hypersomnolent and she was also found to have pneumonia and was started on antibiotics and discharged home. On the second emergency room visit, she was found to be hypercalcemic with a calcium level of 11.9. The patient also does have a history of chronic lymphocytic leukemia. The patient was admitted, given IV hydration as well as diuretics and over time, her calcium levels have normalized. She did have diagnostic imaging performed with a CT scan of the abdomen and pelvis, which did show a new abdominal, retroperitoneal and pelvic sidewall as well as left inguinal lymphadenopathy as well as a lytic lesion of the vertebral bodies and new lesions of the liver. CT scan of the head also was performed, which did show multiple lytic calvarial lesions. Again, suspicious for a neoplastic process. The family does want to verify that this is due to her chronic lymphocytic leukemia and if so they will decide on further chemotherapeutic therapy. Oncology as well as Internal Medicine has consulted surgery for biopsy of a lymph node, which upon reviewing the CT scan would be easiest in the area of the left inguinal region. PAST MEDICAL HISTORY: Chronic lymphocytic leukemia diagnosed in 2009, history of left breast cancer diagnosed in 1991, hypertension, hypercholesterolemia, coronary artery disease, sleep apnea, osteoarthritis, bilateral knees and hips, gastroesophageal reflux disease, chronic kidney disease. PAST SURGICAL HISTORY: Left modified radical mastectomy, cardiac catheterization and stent placement, colonoscopy and polypectomy. ALLERGIES: No known drug allergies. MEDICATIONS: Aspirin 81 mg daily, atorvastatin 40 mg daily, azithromycin 250 mg daily, buspirone 5 mg daily, cetirizine 10 mg daily, citalopram 40 mg daily, donepezil 5 mg daily, iron 325 mg daily, magnesium 400 mg daily, memantine 10 mg daily, fish oil, Protonix 40 mg daily, potassium 99 mg b.i.d. SOCIAL HISTORY: Negative smoke, negative alcohol. FAMILY HISTORY: Noncontributory. PHYSICAL EXAMINATION: VITAL SIGNS: Temperature 36.7, blood pressure 146/92, pulse 91, respirations 18, pulse ox 98% on 2.5 liters nasal cannula. REVIEW OF SYSTEMS: Well-nourished female, currently in no acute distress. She is arousable; however, does not answer questions and does have some confusion. It does not appear that she is short of breath or using accessory muscles. No cough or sputum production. No known chest pain, palpitations, diaphoresis. Tolerating diet, vomiting No known red blood per rectum as well as no dark tarry stools. No fever, chills, no recent inadvertent weight loss. All other review of systems negative. PHYSICAL EXAMINATION: CHEST: Few scattered rales bilaterally. HEART: Regular. No murmurs. EXTREMITIES: No lower extremity edema. Negative Homans sign. HEENT: No scleral icterus. No cervical lymphadenopathy. ABDOMEN: Soft, nondistended. There is a palpable left inguinal lymphadenopathy. SKIN: Warm, dry. LABORATORY DATA: WBC 6.9, hemoglobin 10.8, hematocrit 34, platelets 148, BUN 8, creatinine 0.80, calcium 8.6, magnesium 1.7. CA 15-3 antigen 23.6. ASSESSMENT AND PLAN: An 81-year-old female with progression of her chronic lymphocytic leukemia. Oncology will need tissue sample with a lymph node and proper staining to stream line the best type of chemotherapy agents and we will proceed with a left inguinal deep lymph node biopsy under MAC anesthesia. Job ID: [id number] DocumentID: [id number] Dictated Date: 07/16/2022 16:36:23 Welder Fitter Gas Date: 07/16/2022 17:00:00 Dictated By: GENE FRANCO MD
[2022-07-16 19:27] VITALS: BP 129/93
[2022-07-16] MEDS ORDERED: morphine INJ 4 MG/ML 1 ML (VIAL/SYRINGE) IVP PRN (21:00)
[2022-07-16] MEDS: APAP 325 MG/10.15 ML LIQ (TYLENOL) UDC PO PRN (22:00)
[2022-07-16 23:35] VITALS: BP 146/76
[2022-07-17] VITALS (10 sets, daily range): BP systolic 118–152; BP diastolic 71–108
[2022-07-17 06:01] LABS: POTASSIUM 4.3 MMOL/L (3.6-5.0)
[2022-07-17 06:02] LABS: CALCIUM 8.1 MG/DL (8.5-10.1)
[2022-07-17] MEDS: KCL 20 MEQ TAB (K-DUR) PO SCH (06:04)
[2022-07-17] MEDS: POTASSIUM BICARB 20 MEQ (EFFER-K) TABLET PO SCH (06:04)
[2022-07-17] MEDS: POTASSIUM CL 10MEQ/50ML IVPB 50 ML IV SCH (06:04)
[2022-07-17 06:06] LABS: PHOSPHORUS 2.7 MG/DL (2.3-4.7)
[2022-07-17 06:07] LABS: CREATININE SERUM 0.83 MG/DL (0.60-1.30)
[2022-07-17 06:09] LABS: MAGNESIUM 1.9 MG/DL (1.6-2.4)
[2022-07-17] MEDS: MAGNESIUM 1 GM/100 ML IVPB 100 ML IV SCH ×3 (06:20→07:48)
[2022-07-17] MEDS: SENNA W/DOCUSATE (SENOKOT S) TABLET PO SCH ×2 (07:36→21:04)
[2022-07-17] MEDS: D5 1/2 NS W/KCL 20 MEQ/L 1,000 ML IV SCH (07:48)
[2022-07-17] MEDS: ENOXAPARIN 60 MG/0.6 ML (LOVENOX) SYR SC SCH ×2 (12:46→21:31)
[2022-07-17] MEDS ORDERED: LIDOCAINE/EPI 1%-1:100,000 (XYLOCAINE) 20ML ONE (13:19)
--- NOTE | 2022-07-17 14:27 | Progress Note - Hospitalist ---
Subjective HPI/CC On Admission Date Seen by Provider: Jul 17, 2022 Patient is an 81-year-old female with past medical history of CLL who presented to the emergency department due to decreased mentation and constipation. She was seen in the emergency room last week for somnolence and was able to be discharged home after being diagnosed with pneumonia and started on antibiotics. She has had decreased oral intake and has not had a bowel movement in 3 days prompting evaluation. In the ER basic labs were done and revealed hypercalcemia of 11.9. Because of her constipation and somnolence a CT head and CT abdomen pelvis were ordered both revealed findings concerning for metastatic disease as described below. She was admitted for further management. This morning she awakens easily when spoken to but asked to sleep. She states "I just like to sleep." There is no family at bedside. Subjective/Events-last exam Pt reports doing ok. "Just sleeping." No family at bedside. Objective Exam Vital Signs Vital Signs Date Time Temp Pulse Resp B/P (MAP) Pulse Ox O2 Delivery O2 Flow Rate FiO2 07/17/22 13:00 77 07/17/22 12:07 36.4 20 118/74 (89) 96 Nasal Cannula 2.50 Capillary Refill : Less Than 3 Seconds General Appearance: No Apparent Distress, Chronically ill Respiratory: Lungs Clear, No Respiratory Distress Cardiovascular: Regular Rate, Rhythm, No Murmur Neurologic/Psychiatric: Alert, Disoriented Results/Procedures Lab Laboratory Tests 07/17/22 04:58 Patient resulted labs reviewed. Imaging: Reviewed Imaging Report Assessment/Plan Assessment and Plan Assess & Plan/Chief Complaint Altered mental status due to hypercalcemia Hypercalcemia of malignancy CLL Oncology consulted, appreciate recs Improved with pamidronate, stable SPEP shows increasing concentration of IgM kappa from 2019 Plan for biopsy today Dr. Jimenez consulted, appreciate assistance Hopeful to [place] tomorrow Social Work consulted, appreciate recs A fib New onset, rate controlled Lovenox Telemetry Hypomagnesemia Improved HTN HLD COPD PVD Dementia No acute needs PT/OT DVT ppx: Lovenox Diagnosis/Problems Diagnosis/Problems (1) Metastatic disease (2) CLL (chronic lymphocytic leukemia) Status: Acute (3) Hypercalcemia Status: Acute (4) Hypomagnesemia Status: Acute (5) Somnolence Status: Acute (6) HTN (hypertension) (7) CAD (coronary artery disease) OTONIEL DAVEY MD Jul 17, 2022 14:27
[2022-07-17] MEDS ORDERED: fentaNYL INJ 100 MCG/2 ML AMP ONE (14:31)
[2022-07-17] MEDS ORDERED: proPOfol 200 MG/20 ML (DIPRIVAN) VIAL IV ONE (14:31)
[2022-07-17] MEDS ORDERED: LIDOCAINE PF 2% 5 ML (XYLOCAINE) VIAL ONE (14:31)
--- NOTE | 2022-07-17 14:32 | Physical Therapy Daily Note ---
PT Daily Note-Current Subjective Patient and family agree to PT. Pain Section J - Health Conditions 1. Rarely or not at all 2. Occasionally 3. Frequently 4. Almost constantly 8. Unable to answer Pain Effect on Sleep: 1 Pain Interference with Therapy: 1 Pain Interference w/Day-to-Day: 1 Mental Status Patient Orientation: Confused Attachments: Oxygen, Fernandez Catheter, IV Transfers SCALE: Activities may be completed with or without assistive devices. 2-Yxqjapumtw-trvypxd completes the activity by him/herself with no assistance from a helper. 5-Set-up or Clean-up Assistance-helper sets up or cleans up; patient completes activity. [place] assists only prior to or following the activity. 4-Supervision or Touching Assistance-helper provides verbal cues and/or touching/steadying and/or contact guard assistance as patient completes activity. Assistance may be provided throughout the activity or intermittently. 3-Partial/Moderate Assistance-helper does LESS THAN HALF the effort. [place] lifts, holds or supports trunk or limbs, but provides less than half the effort. 2-Substantial/Maximal Assistance-helper does MORE THAN HALF the effort. [place] lifts or holds trunk or limbs and provides more than half the effort. 2-Niogzeziy-aummio does ALL the effort. Patient does none of the effort to complete the activity. Or, the assistance of 2 or more helpers is required for the patient to complete the activity. If activity was not attempted, code reason: 7-Patient Refused. 9-Not Applicable-not attempted and the patient did not perform the activity before the current illness, exacerbation or injury. 10-Not Attempted due to Environmental Limitations-(lack of equipment, weather restraints, etc.). 88-Not Attempted due to Medical Conditions or Safety Concerns. Lying to Sitting/Side of Bed(Q: 2 Sit to Stand (QC): 2 Chair/Fth-gu-Ahhrv Xfer(QC): 2 Weight Bearing Right Lower Extremity: Right Full Weight Bearing Left Lower Extremity: Left Full Weight Bearing Assessment Patient stood for several minutes while OT cleansed patient. PT to continue to increase activity as tolerated by patient. PT Half-Way Goals Half-Way Goals PT Supervisor Mapping Goals Time Frame: Jul 26, 2022 Roll Left & Right (QC): 4 Sit to Lying (QC): 4 Lying-Sitting on Side/Bed(QC): 4 Sit to Stand (QC): 4 Chair/Rxx-wj-Zfvzo Xfer(QC): 4 Toilet Transfer (QC): 4 Walk 10 feet (QC): 3 Walk 50ft with 2 Turns (QC): 3 PT Plan Treatment/Plan Treatment Plan: Continue Plan of Care Treatment Plan: Bed Mobility, Education, Functional Activity Johan, Functional Strength, Gait, Safety, Therapeutic Exercise, Transfers Treatment Duration: Jul 26, 2022 Frequency: 5 times per week Estimated Hrs Per Day: .25 hour per day Time Time In: 1345 Time Out: 1356 DATE: Jul 17, 2022 Total Billed Treatment Time: 11 Total Billed Treatment 1 visit FA 11 min MERI DÍAZ PT Jul 17, 2022 14:32
[2022-07-17] MEDS ORDERED: ceFAZolin INJECTION 1,000 MG ONE (14:46)
[2022-07-17] MEDS ORDERED: LACTATED RINGERS 1,000 ML IV PRN (15:15)
--- NOTE | 2022-07-17 15:48 | Progress Note-Post Operative ---
Post-Operative Progess Note Surgeon (s)/Bounty Trapper (s) Surgeon GENE FRANCO MD Bounty Trapper: yo perez HYDROGRAPHIC ENGINEER Pre-Operative Diagnosis malignant hypercalcemia and hx CLL Post-Operative Diagnosis same Procedure & Operative Findings Date of Procedure 07/17/22 Procedure Performed/Findings left inguinal excisional lymph node bx. Anesthesia Type general LMA Estimated Blood Loss Estimated blood loss (mL): minimal Specimens/Packing Specimens Removed left inguinal lymph node GENE FRANCO MD Jul 17, 2022 15:48
[2022-07-17] MEDS ORDERED: SEVOFLURANE (ULTANE) 15 ML INHAL SOLN ONE (15:59)
[2022-07-17] MEDS ORDERED: ONDANSETRON 4 MG/2 ML (SDV) Z0FRAN ONE (15:59)
--- NOTE | 2022-07-17 20:17 | Discharge Inst-Skilled Nursing ---
Discharge Inst-Skilled NF Chief Complaint Patient is an 81-year-old female with past medical history of CLL who presented to the emergency department due to decreased mentation and constipation. She was seen in the emergency room last week for somnolence and was able to be discharged home after being diagnosed with pneumonia and started on antibiotics. She has had decreased oral intake and has not had a bowel movement in 3 days prompting evaluation. In the ER basic labs were done and revealed hypercalcemia of 11.9. Because of her constipation and somnolence a CT head and CT abdomen pelvis were ordered both revealed findings concerning for metastatic disease as described below. She was admitted for further management. This morning she awakens easily when spoken to but asked to sleep. She states "I just like to sleep." There is no family at bedside. Consult/Follow Up/Orders Follow Up Appt.: With Dr Last regarding biopsy results. Skilled NF Admit to: [facility] Certification ([facility]) I certify that SNF services are required to be given on an inpatient basis because of the above named patient's need for alf care on a continuing basis for the conditions(s) for which he/she was receiving inpatient hospital services prior to his/her transfer to the SNF. Jail Facility Order: Nursing Services, Art Sales Consultant-Evaluate & Treat, Physical Therapy-Evaluate & Treat Oxygen Delivery Method: Nasal Cannula Oxygen Flow Rate L/min (Range): 2 Discharge Diet: No Restrictions Daily Activity as Tolerated: Yes Resuscitation Status: Do Not Resuscitate New & Resume Previous Orders Otoniel Davey Jul 17, 2022 20:16 OTONIEL DAVEY MD Jul 17, 2022 20:17
--- NOTE | 2022-07-17 22:54 | OPERATIVE REPORT ---
DATE OF SERVICE: 07/17/2022 ATTENDING PRIMARY CARE PHYSICIAN: Elver Carmona MD. PREOPERATIVE DIAGNOSES: History of chronic lymphocytic leukemia with symptomatic bulky adenopathy. Hypercalcemia. POSTOPERATIVE DIAGNOSES: History of chronic lymphocytic leukemia with symptomatic bulky adenopathy. Hypercalcemia. PROCEDURE: Excisional biopsy, left inguinal lymph node. SURGEON: Gene Franco MD FROG CATCHER: Lenin Castrejon APRN ANESTHESIA: General laryngeal mask airway. ESTIMATED BLOOD LOSS: Minimal. FINDINGS: Large pathologic appearing lymph node approximately 3 cm in size. DISPOSITION: The patient tolerated the procedure well. INDICATIONS: The patient is an 81-year-old female who presented to the Emergency Department with decreased mentation as well as constipation. She had been seen in the emergency room 1 week prior due to hypersomnolence and found to have pneumonia and started on antibiotics and eventually was discharged home. On this visit, she was found to be hypercalcemic, level of 11.9. She has a history of chronic lymphocytic leukemia. The patient was admitted, given IV hydration and diuretics and over time, the calcium levels have normalized. On diagnostic imaging with a CT scan of the abdomen and pelvis, this showed new abdominal bulky retroperitoneal and pelvic sidewall lymph nodes as well as an inguinal lymphadenopathy mostly on the left side. Other imaging showed lytic lesions in the vertebral bodies, new lesions of the liver as well as lytic lesions of the cranium, likely suspicious for a neoplastic process. The family does want to verify this is due to her chronic lymphocytic leukemia and to decide on further potential chemotherapeutic agents. DESCRIPTION OF PROCEDURE: The patient was brought to the operating room, laid supine on the table. After adequate IV pain and sedative medications and general laryngeal mask airway intubation, the left groin, abdomen and lower extremity were prepped and draped in standard surgical fashion. 1% lidocaine with epinephrine was used to anesthetize the overlying skin in an oblique manner just above the inguinal ligament. An oblique skin incision was then made using a #15 blade. The subcutaneous tissue and Farzana's fascia was then opened using electrocautery. We then proceeded to dissect out the large lymph node approximately 3 cm in size, which did appear to be grossly pathologic. We did this with blunt dissection with electrocautery with visualization of good hemostasis. The entire specimen was sent to pathology. Good hemostasis was observed and the fascia was then reapproximated using interrupted 3-0 Vicryl sutures and the skin was closed using 4-0 Monocryl running subcuticular suture. Wound was then cleaned and covered with Dermabond. The patient tolerated the procedure well. We will admit her back to the floor, where she may resume all her previous activities and diet and she also may be transferred to an Extended Care facility at any time. Job ID: [id number] DocumentID: [id number] Dictated Date: 07/17/2022 15:58:59 Brain Wave Technician Date: 07/17/2022 22:51:00 Dictated By: GENE FRANCO MD
[2022-07-18] MEDS: HYDROcodone/APAP 5 MG/325 MG (LORTAB) TAB PO PRN ×2 (01:11→12:11)
[2022-07-18 03:37] VITALS: BP 130/86
[2022-07-18 06:02] LABS: POTASSIUM 4.6 MMOL/L (3.6-5.0)
[2022-07-18] MEDS: POTASSIUM BICARB 20 MEQ (EFFER-K) TABLET PO SCH (06:07)
[2022-07-18] MEDS: POTASSIUM CL 10MEQ/50ML IVPB 50 ML IV SCH (06:07)
[2022-07-18 06:08] LABS: CREATININE SERUM 0.83 MG/DL (0.60-1.30); PHOSPHORUS 2.8 MG/DL (2.3-4.7)
[2022-07-18] MEDS: KCL 20 MEQ TAB (K-DUR) PO SCH (06:08)
[2022-07-18 06:10] LABS: MAGNESIUM 1.8 MG/DL (1.6-2.4)
[2022-07-18] MEDS: MAGNESIUM 1 GM/100 ML IVPB 100 ML IV SCH ×3 (06:20→08:41)
[2022-07-18 07:05] VITALS: BP 141/84
[2022-07-18] MEDS: SENNA W/DOCUSATE (SENOKOT S) TABLET PO SCH (08:41)
[2022-07-18] MEDS: ENOXAPARIN 60 MG/0.6 ML (LOVENOX) SYR SC SCH (10:06)
[2022-07-18] MEDS ORDERED: ATOR40TA70 PO (10:20)
[2022-07-18] MEDS ORDERED: MAGN400T39 PO (10:20)
[2022-07-18] MEDS ORDERED: PANT40TA52 PO (10:20)
[2022-07-18] MEDS ORDERED: BUSP5TAB59 PO (10:20)
[2022-07-18] MEDS ORDERED: DONE5TAB30 PO (10:20)
[2022-07-18] MEDS ORDERED: OMEG-9 PO ×2 (10:20)
[2022-07-18] MEDS ORDERED: POTA99TA17 PO (10:20)
[2022-07-18] MEDS ORDERED: ASPI-1238 PO (10:20)
[2022-07-18] MEDS ORDERED: CETI10TA17 PO (10:20)
[2022-07-18] MEDS ORDERED: CLC600T PO (10:20)
[2022-07-18] MEDS ORDERED: FERR325T18 PO (10:20)
[2022-07-18] MEDS ORDERED: APIX5TAB PO (10:20)
[2022-07-18] MEDS ORDERED: CITA40TA13 PO (10:20)
[2022-07-18] MEDS ORDERED: MEMA10TA57 PO (10:20)
--- NOTE | 2022-07-18 11:30 | Discharge Summary ---
Diagnosis/Chief Complaint Date of Admission Jul 12, 2022 at 22:30 Date of Discharge Discharge Date: Jul 17, 2022 Admission Diagnosis Altered mental status due to hypercalcemia Primary Care Elver Carmona MD Discharge Diagnosis (1) Metastatic disease (2) CLL (chronic lymphocytic leukemia) Status: Acute (3) Hypercalcemia Status: Acute (4) Hypomagnesemia Status: Acute (5) Somnolence Status: Acute (6) HTN (hypertension) (7) CAD (coronary artery disease) Discharge Summary Discharge Physical Exam Allergies: Coded Allergies: No Known Drug Allergies (Verified , 05/03/16) Vitals & I&Os Vital Signs Date Time Temp Pulse Resp B/P (MAP) Pulse Ox O2 Delivery O2 Flow Rate FiO2 07/18/22 08:23 Nasal Cannula 2.00 07/18/22 07:05 36.2 99 18 141/84 (103) 96 General Appearance: No Apparent Distress, Chronically ill Respiratory: Lungs Clear, No Respiratory Distress Cardiovascular: Regular Rate, Rhythm, No Murmur Neurologic/Psychiatric: Alert, Disoriented Hospital Course Patient was admitted to the hospital secondary to hypercalcemia likely due to malignancy. She has a history of CLL which which she follows with Dr. Gilliland. Dr. Gilliland was consulted and after family meeting biopsy was done to determine primary source of the metastatic disease noted on imaging. She was treated with pamidronate and IV fluids and her calcium level improved. Her mentation improved as well. She was incidentally found to be in atrial fibrillation but was rate controlled with no medications. She was started on Eliquis for this for stroke prophylaxis. She was [facility] to [facility] for skilled stay. She is to follow-up with Dr. Gilliland regarding biopsy results. I did call and speak with primary care regarding this hospital stay and need for follow-up at the facility. Labs (last 24 hrs) Laboratory Tests 07/18/22 05:10: Sodium Level 137, Potassium Level 4.6, Chloride Level 106, Carbon Dioxide Level 22, Anion Gap 9, Blood Urea Nitrogen 13, Creatinine 0.83, Estimat Glomerular Filtration Rate 71, BUN/Creatinine Ratio 16, Glucose Level 107H, Calcium Level 8.0L, Phosphorus Level 2.8, Magnesium Level 1.8 Microbiology 07/16/22 MRSA Screen - Final, Complete MRSA not isolated Patient resulted labs reviewed. Pending Labs Laboratory Tests 07/18/22 05:10: Sodium Level 137, Potassium Level 4.6, Chloride Level 106, Carbon Dioxide Level 22, Anion Gap 9, Blood Urea Nitrogen 13, Creatinine 0.83, Estimat Glomerular Filtration Rate 71, BUN/Creatinine Ratio 16, Glucose Level 107, Calcium Level 8.0, Phosphorus Level 2.8, Magnesium Level 1.8 Imaging: Reviewed Imaging Report Discussion & Recommendations Discharge Planning: >30 minutes discharge planning Discharge Home Medications: Active Scripts Active Eliquis (Apixaban) 5 Mg Tablet 5 Mg PO BID Ferrous Sulfate 325 Mg (65 Mg Iron) Tablet 325 Mg PO Q48H Donepezil HCl 5 Mg Tablet 10 Mg PO DAILY TAKES 2 (5MG) TABS Memantine HCl 10 Mg Tablet 10 Mg PO BID Buspirone HCl 5 Mg Tablet 2.5 Mg PO BID TAKES half OF A 5MG TAB Calcium Carbonate 600 Mg Calcium (1500 Mg) Tablet 600 Mg PO BID Cetirizine HCl 10 Mg Tablet 10 Mg PO DAILY Magnesium (Magnesium Oxide) 400 Mg Magnesium Tablet 400 Mg PO BID Fish Oil 1,400 mg Softgel ([place]-3/Dha/Epa/Fish Oil) 900 Mg (253 Mg-647 Mg)- 1,400 Mg Capsule.dr 2 Each PO HS TAKES 2 CAPSULES Fish Oil 1,400 mg Softgel ([place]-3/Dha/Epa/Fish Oil) 900 Mg (253 Mg-647 Mg)- 1,400 Mg Capsule.dr 1 Each PO DAILY Citalopram HBr (Citalopram Hydrobromide) 40 Mg Tablet 40 Mg PO DAILY Potassium Gluconate 595 MG (Potassium Gluconate) 595 Mg (99 Mg) Tablet 99 Mg PO BID Aspirin EC (Aspirin) 81 Mg Tablet. 81 Mg PO DAILY Pantoprazole Sodium 40 Mg Tablet.dr 40 Mg PO DAILY Atorvastatin Calcium 40 Mg Tablet 40 Mg PO HS Instructions to patient/family Please see electronic discharge instructions given to patient. OTONIEL DAVEY MD Jul 18, 2022 11:30
--- NOTE | 2022-07-18 11:51 | Anesthesia-General Post-Op ---
General Patient Condition Mental Status/LOC: Same as Preop Cardiovascular: Satisfactory Nausea/Vomiting: Absent Respiratory: Satisfactory Pain: Controlled Complications: Absent Post Op Complications Complications None Follow Up Care/Instructions Patient Instructions None needed. Anesthesia/Patient Condition Patient Condition Patient is doing well, no complaints, stable vital signs, no apparent adverse anesthesia problems. No complications reported per nursing. ADRIANNA ROSALES CRNA Jul 18, 2022 11:51
[2022-07-18 11:53] VITALS: BP 151/91
[2022-07-18 15:45] VITALS: BP 151/91
== END 2022-07-18 15:45 | DRG 629 ==
LOC: EDUNIT# 16:53 → ER 16:54 → 4TH 22:30
PROVIDERS: ADMIT Family Medicine; ATTEND Family Medicine
PROC: 07BJ0ZX Excision of Left Inguinal Lymphatic, Open Approach, Diagnostic (ICD-10-PCS; principal; 2022-07-17 15:16)
DX: E83.52 Hypercalcemia (principal); C91.10 Chronic lymphocytic leukemia of B-cell type not having achieved remission; N18.4 Chronic kidney disease, stage 4 (severe); E83.42 Hypomagnesemia; R40.0 Somnolence; I25.10 Atherosclerotic heart disease of native coronary artery without angina pectoris; K59.00 Constipation, unspecified; I48.91 Unspecified atrial fibrillation; E78.5 Hyperlipidemia, unspecified; J44.9 Chronic obstructive pulmonary disease, unspecified; I73.9 Peripheral vascular disease, unspecified; F03.90 Unspecified dementia, unspecified severity, without behavioral disturbance, psychotic disturbance, mood disturbance, and anxiety; K21.9 Gastro-esophageal reflux disease without esophagitis; I12.9 Hypertensive chronic kidney disease with stage 1 through stage 4 chronic kidney disease, or unspecified chronic kidney disease; Z90.12 Acquired absence of left breast and nipple; M17.0 Bilateral primary osteoarthritis of knee; M16.0 Bilateral primary osteoarthritis of hip; G47.33 Obstructive sleep apnea (adult) (pediatric); E86.0 Dehydration; Z95.5 Presence of coronary angioplasty implant and graft; F41.9 Anxiety disorder, unspecified; F32.A Depression, unspecified; Z85.3 Personal history of malignant neoplasm of breast
CPT/HCPCS: 36415; 51702; 70450; 71045; 74177; 80048; 80053; 81000; 82140; 83615; 83735; 84100; 84155; 84165; 85025; 85027; 86300; 87081; 94760; 96361; 96374